=== PATIENT | male | born 1950 | race Caucasian/White ===

== ENCOUNTER 2017-08-29 15:42 | Observation (INO) | payer MEDICARE, SELFPAY ==
[2017-08-29] VITALS (13 sets, daily range): BP systolic 109–153; BP diastolic 59–83; PULSE 70–121; RESP 16–26; TEMP 36.2–36.7; O2SAT 87–96; BMI 33.7; BMI 33.5; BMI 33.6
--- NOTE | 2017-08-29 16:01 | EKG12_ITS ---
Test Reason : SOB Blood Pressure : / mmHG Vent. Rate : 117 BPM Atrial Rate : 117 BPM P-R Int : 140 ms QRS Dur : 090 ms QT Int : 334 ms P-R-T Axes : 064 110 047 degrees QTc Int : 465 ms Sinus tachycardia Otherwise normal ECG Confirmed by DULCE TRIPATHI, CATALINO ([id number]), online content editor DANDY MARIE ([id number]) on 08/31/2017 1:01:52 PM Referred By: ROB Confirmed By:CATALINO CARDONA MD
--- NOTE | 2017-08-29 16:01 | RAD_ITS ---
STUDY: X-RAY CHEST REASON FOR EXAM: Male, 67 years old. Chest pain TECHNIQUE: Single AP portable view of the chest. COMPARISON: None. FINDINGS: The lungs are clear and expanded. There is no demonstrated pleural abnormality. Normal size heart. Normal mediastinum and nick. Normal visualized pulmonary arteries. Normal visualized aortic arch and descending thoracic aorta. There are diffuse degenerative changes of the visualized thoracic spine. Normal visualized ribs, clavicles, and shoulders. There is no demonstrated abnormality of the visualized soft tissue structures of the upper abdomen. RAD/Chest 1 View (Portable) IMPRESSION: Normal x-ray examination of the chest. Electronically Signed: Jabari Ayoub MD at 16:23 EST , Service support ,
--- NOTE | 2017-08-29 16:05 | ED.DCSUM_ITS ---
- ER Visit Summary Date of Service: 08/29/17 Chief Complaint: Shortness of breath History of Present Illness: The patient is a 67 M presenting with shortness of breath. This is been ongoing for the past week. He states is worse when he lays flat. He has cough and chest pain only when he coughs. He denies fever. He has had increasing swelling in his upper and lower extremities. History of previous DVT. He is no longer takes anticoagulants. History of seizures and cerebral palsy. He is a former smoker. Physical Examination: Vitals are stable. Patient is afebrile. Alert no acute distress. 88% on room air HEENT exam is unremarkable. Neck is supple. Lungs are diffusely wheezing Heart is regular rate and rhythm. Abdomen is soft nontender nondistended. Extremities symmetric edema bilaterally Skin is warm and dry. No focal neurologic deficit. Remainder of exam is unremarkable. Emergency Department Course and Treatment: Patient was given albuterol and Atrovent aerosols. He was given Solu-Medrol IV. Chest x-ray shows no acute process. EKG is sinus tachycardia rate of 117. CBC, chemistries unremarkable. Troponin is negative. BNP is normal. D-dimer is negative. He was initially put on oxygen on arrival. After removing the oxygen his pulse ox went to 87% on room air at rest. Will discuss with the hospitalist for admission. Disposition: Admission Impression: COPD exacerbation, hypoxia This note was generated with [employer] dictation software. It may contain incorrect words, spelling, and punctuation that were not noted in review of the chart prior to signing ED Disposition - Plan for ED Patient: Chief Complaint: Shortness of Breath Referrals: Nakul Lopez III, MD [Primary Care Provider] -
[2017-08-29] MEDS: Albuterol 2.5 MG/3 ML VIAL.NEB. INHALATION ×5 (16:13→19:01)
[2017-08-29] MEDS: Ipratropium/Albuterol Sulfate 3 ML AMPUL.NEB INHALATION ×2 (16:13→23:25)
[2017-08-29 16:21] LABS: Absolute Lymphocyte Count 2.23 X10^3/ul (0.83-4.51); Absolute Neutrophil Count 6.6 X10^3/uL (2.0-7.7); Basophil# 0.06 X10^3/uL; Basophil% 0.6 % (0-1); Eosinophil# 0.77 X10^3/uL; Eosinophils% 7.2 % (0-5); Hemoglobin 13.3 g/dl (13.0-16.5); Lymphocyte # 2.23 X10^3/ul (4.0); Mean Corp Hgb Conc 32.4 g/gl (32-36); Mean Corpuscular Hgb 31.7 pg (27.0-32.0); Mean Corpuscular Volume 97.9 fL (80-94); Mean Platelet Vol. 9.9 fl (6.2-12.0); Monocyte# 0.91 X10^3/uL; Monocyte% 8.6 % (0-10); Neutrophil # 6.62 X10^3/uL (2.7-7.7); Neutrophil % 62.2 % (47-70); Platelet Count 261 K/mm3 (150-450); RBC Distribution Width CV 13.1 % (11.6-14.6); RBC Distribution Width SD 46.5 fl (35.1-43.9); Red Blood Count 4.19 M/mm3 (4.6-6.2); White Blood Count 10.6 K/mm3 (4.4-11.0)
[2017-08-29 16:51] LABS: Anion Gap 8 (5-15); BUN 15 mg/dL (7-18); Calcium,Total 8.8 mg/dL (8.5-10.1); Chloride 105 mmol/L (98-107); Creatinine, Serum 1.25 mg/dL (0.70-1.30); EST Glomerular Filtration Rate 61 mL/min (>60); Est Glom Filt Rate - Afr Amer 74 mL/min (>60); Estimated Creatinine Clearance 48.02 ml/min; Glucose 159 mg/dL (74-106); POSITIVE COUNT NO; POSITIVE DIFFERENTIAL NO; POSITIVE MORPHOLOGY NO; Potassium 4.1 mmol/L (3.5-5.1); Sodium Level 138 mmol/L (136-145)
[2017-08-29] MEDS: Aspirin 81 MG TAB.CHEW 324 MG PO (16:53)
[2017-08-29 17:14] LABS: BNP,B-Type NATRIURETIC PEPTIDE 2.6 pg/mL (0-100)
[2017-08-29] MEDS: MethylPREDNISolone 125 MG/2 ML Vial IV (17:52)
--- NOTE | 2017-08-29 18:10 | ED.RN ---
SOB WITH AMBULATION IN HALLWAY
[2017-08-29 18:28] LABS: D-Dimer Quantitative (DVT/PE) < 0.27 FEU/ug/m (0.27-0.49)
--- NOTE | 2017-08-29 20:40 | PCM.HP.STD ---
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 The patient is a 67 year old M past medical history as mentioned above presented to the emergency room because of shortness of breath. His illness started around 1 week ago with progressively increasing shortness of breath, initially was with moderate exertion and in the last couple of days, it has been with minimal exertion, associated with dry cough as well as wheezing, without aggravating or relieving factors and also associated with mild nasal congestion. He denied fever or chills. Denied chest pain, palpitation, dizziness or lightheadedness. He is an ex-smoker, smoked for about 35 years and he quit 9 years ago. He never been diagnosed officially with COPD but he mentioned that he takes inhalers from time to time. The patient is not a great informant. He had a history of seizure and he has been on Tegretol and Keppra. He had a history of cerebral palsy and he lives with his mother but he is independent. He had a history of DVT in the past and he is not on anticoagulation at this time. In the emergency room, patient was afebrile, slightly tachycardic, blood pressure was stable and pulse ox was 94% on 2 L. His routine blood work was unremarkable. D-dimer was normal. EKG revealed sinus tachycardia, otherwise normal. Chest x-ray showed no acute infiltrate, consultation or effusion. He received IV Solu-Medrol, DuoNeb ?1 and albuterol inhaler ?3 and he remained wheezy and short of breath although he felt some improvement. He is being admitted for acute exacerbation of suspected COPD with hypoxia. Past Medical History Past Medical History (Chronic Problems): Chronic Problems DVT of proximal lower limb (Chronic) History of seizures (Chronic) History of cerebral palsy (Chronic) Allergies No Known Allergies Allergy (Verified 08/29/17 15:47) Home Medications: Ambulatory Orders Medication Instructions Recorded Carbamazepine [Tegretol] 200 mg PO TID 08/29/17 Levetiracetam [Levetiracetam] 500 mg PO BID 08/29/17 Surgical History: - - R hand and leg surgeries, Craniotomy, Polyp removal, Lap hemicolectomy. Psychiatric History: No pertinent psych hx Lives: With Family Smoking Status: Former smoker Alcohol: None Drugs: None - *Family History Maternal History Items: No pertinent history Paternal History Items: No pertinent history Review of Systems Constitutional: Denies: Anorexia, Chills, Fever, Weakness Eyes: Denies: Blurred vision, Double vision, Drainage, Vision Change HEENT: Reports: Nasal Congestion. Denies: Difficulty Hearing, Ear Pain, Eye Pain, Sore Throat Cardiovascular: Denies: Chest Pain, Chest Pressure, Chest Tightness, Palpitations, Syncope Respiratory: Reports: Cough, Shortness of Breath, Shortness of breath upon exertion, Wheezing. Denies: Hemoptysis, Pleuritic Pain, Sputum production Gastrointestinal: Denies: Abdominal Pain, Constipation, Diarrhea, Nausea, Vomiting Genitourinary: Denies: Dysuria, Frequency, Hematuria Musculoskeletal: Denies: Arm Pain, Back Pain, Foot Pain Skin: Denies: Dryness, Rash Neurological: Denies: Balance problems, Double vision, Change in Speech, Slurred speech, Confusion, Focal weakness, Headaches, Incoordination Psychiatric: Denies: Anxiety, Depression Endocrine: Denies: Change in Body Habitus, Polydipsia VTE Information - Inpt Only VTE Present on Admission: No VTE Mechan Device Prophylaxis: None VTE Pharm Prophylaxis ordered?: Yes - Physical Exam General: Alert, Oriented x3, Cooperative, - - Mildly short of breath. HEENT: Atraumatic, PERRLA Oral: Moist Mucosa, No Gingival or Mucosal Lesions/ Ulcerations Neck: Supple, No JVD, Negative Carotid Bruits, Trachea Midline, Thyroid Normal Size and Texture Lungs: No rhonchi, No rales, Diminished, Short of Breath, Wheezes, - - Decreased breath sounds bilateral, occasional wheezes. Cardiovascular: Regular rate, Regular Rhythm, Normal S2, PMI Normal, Tachycardic Abdomen: Bowel Sounds Present, Soft, Non Tender, Non-Distended, No Hepato-splenomegaly Extremities: No clubbing, No cyanosis, No edema Skin: No rashes, No breakdown Lymphatic: No Cervical, Supraclavicular, or Inguinal Adenopathy Neurological: Cranial nerves II-XII grossly intact, Neuro grossly intact Psych/Mental Status: Normal Affect, Appropriate Vital Signs Temp Pulse Resp BP Pulse Ox 97.2 F L 108 H 19 H 116/73 94 08/29/17 20:34 02/13/18 20:34 08/29/17 20:34 08/29/17 20:34 08/29/17 20:34 Laboratory Tests 08/29/17 08/29/17 08/29/17 Range/Units 16:55 16:10 16:10 WBC (4.4-11.0) K/mm3 RBC (4.6-6.2) M/mm3 Hgb (13.0-16.5) g/dl Hct (40-54) % MCV (80-94) fL MCH (27.0-32.0) pg MCHC (32-36) g/gl RDW (11.6-14.6) % RDW Differential (35.1-43.9) fl Plt Count (150-450) K/mm3 MPV (6.2-12.0) fl Immature Gran % (Auto) (0.0-0.9) % Neut % (Auto) (47-70) % Lymph % (Auto) (19-41) % [place] % (Auto) (0-10) % Eos % (Auto) (0-5) % Baso % (Auto) (0-1) % Absolute Neuts (auto) (2.0-7.7) X10^3/uL Absolute Lymphs (auto) (0.83-4.51) X10^3/ul Total Counted D-Dimer Quant (PE/DVT) < 0.27 L Sodium 138 (136-145) mmol/L Potassium 4.1 (3.5-5.1) mmol/L Chloride 105 (98-107) mmol/L Carbon Dioxide 25.0 (21.0-32.0) mmol/L Anion Gap 8 (5-15) BUN 15 (7-18) mg/dL Creatinine 1.25 (0.70-1.30) mg/dL Estim Creat Clear Calc 48.02 ml/min Est GFR (MDRD) Af Amer 74 (>60) mL/min Est GFR (MDRD) Non-Af 61 (>60) mL/min BUN/Creatinine Ratio 12.0 (10-20) RATIO Glucose 159 H (74-106) mg/dL Calcium 8.8 (8.5-10.1) mg/dL Troponin I < 0.02 (<0.06) ng/mL B-Natriuretic Peptide 2.6 (0-100) pg/mL 08/29/17 08/29/17 Range/Units 16:10 16:10 WBC 10.6 (4.4-11.0) K/mm3 RBC 4.19 L (4.6-6.2) M/mm3 Hgb 13.3 (13.0-16.5) g/dl Hct 41.0 (40-54) % MCV 97.9 H (80-94) fL MCH 31.7 (27.0-32.0) pg MCHC 32.4 (32-36) g/gl RDW 13.1 (11.6-14.6) % RDW Differential 46.5 H (35.1-43.9) fl Plt Count 261 (150-450) K/mm3 MPV 9.9 (6.2-12.0) fl Immature Gran % (Auto) 0.400 (0.0-0.9) % Neut % (Auto) 62.2 (47-70) % Lymph % (Auto) 21.0 (19-41) % [place] % (Auto) 8.6 (0-10) % Eos % (Auto) 7.2 H (0-5) % Baso % (Auto) 0.6 (0-1) % Absolute Neuts (auto) 6.6 (2.0-7.7) X10^3/uL Absolute Lymphs (auto) 2.23 (0.83-4.51) X10^3/ul Total Counted Not Reportable D-Dimer Quant (PE/DVT) Cancelled Sodium (136-145) mmol/L Potassium (3.5-5.1) mmol/L Chloride (98-107) mmol/L Carbon Dioxide (21.0-32.0) mmol/L Anion Gap (5-15) BUN (7-18) mg/dL Creatinine (0.70-1.30) mg/dL Estim Creat Clear Calc ml/min Est GFR (MDRD) Af Amer (>60) mL/min Est GFR (MDRD) Non-Af (>60) mL/min BUN/Creatinine Ratio (10-20) RATIO Glucose (74-106) mg/dL Calcium (8.5-10.1) mg/dL Troponin I (<0.06) ng/mL B-Natriuretic Peptide (0-100) pg/mL Clinical Impression(s) from Imaging Studies Chest X-Ray 08/29/17 16:01 IMPRESSION: Normal x-ray examination of the chest. Electronically Signed: Jabari Ayoub MD at 16:23 EST , Service support , Assessment/Plan This is a 67 years old male patient presented to the emergency room because of shortness of breath, cough and wheezing and found to have hypoxia, found to have acute exacerbation of suspected COPD. #1 acute exacerbation of suspected COPD/hypoxia: This is based on his symptoms in addition to past history of smoking for 35 years. Patient mentioned that he has been using inhalers from time to another but never been diagnosed with COPD. Chest x-ray showed no acute findings. EKG revealed sinus tachycardia, otherwise normal. Routine blood work is unremarkable. Patient received IV steroids, albuterol and DuoNeb in the ER with improvement but he remained short of breath, wheezing and remained on oxygen at 2 L. Patient never been on oxygen at home before. Admit plan: Admit to [facility] floor for observation, telemetry, DuoNeb every 6 hours, albuterol as needed, Robitussin as needed, incentive spirometer, prednisone 40 mg p.o. daily, respiratory panel for viruses, PT OT evaluation and treatment. #2 seizure disorder: Continue Keppra and Tegretol. #3 cerebral palsy: Stable, supportive care. #4 history of DVT: It is long time ago, not on anticoagulation at this time. #5 DVT prophylaxis: Subcu Lovenox. This note was generated with [employer] dictation software. It may contain incorrect words, spelling, and punctuation that were not noted in checking the note before signing. Code Visit OBSV E&M: 49561 Initial observation care L3
--- NOTE | 2017-08-29 20:49 | HP.PCM_ITS ---
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 The patient is a 67 year old M past medical history as mentioned above presented to the emergency room because of shortness of breath. His illness started around 1 week ago with progressively increasing shortness of breath, initially was with moderate exertion and in the last couple of days, it has been with minimal exertion, associated with dry cough as well as wheezing, without aggravating or relieving factors and also associated with mild nasal congestion. He denied fever or chills. Denied chest pain, palpitation, dizziness or lightheadedness. He is an ex-smoker, smoked for about 35 years and he quit 9 years ago. He never been diagnosed officially with COPD but he mentioned that he takes inhalers from time to time. The patient is not a great informant. He had a history of seizure and he has been on Tegretol and Keppra. He had a history of cerebral palsy and he lives with his mother but he is independent. He had a history of DVT in the past and he is not on anticoagulation at this time. In the emergency room, patient was afebrile, slightly tachycardic, blood pressure was stable and pulse ox was 94% on 2 L. His routine blood work was unremarkable. D-dimer was normal. EKG revealed sinus tachycardia, otherwise normal. Chest x-ray showed no acute infiltrate, consultation or effusion. He received IV Solu-Medrol, DuoNeb ?1 and albuterol inhaler ?3 and he remained wheezy and short of breath although he felt some improvement. He is being admitted for acute exacerbation of suspected COPD with hypoxia. Past Medical History Past Medical History (Chronic Problems): Chronic Problems DVT of proximal lower limb (Chronic) History of seizures (Chronic) History of cerebral palsy (Chronic) Allergies No Known Allergies Allergy (Verified 08/29/17 15:47) Home Medications: Ambulatory Orders Medication Instructions Recorded Carbamazepine [Tegretol] 200 mg PO TID 08/29/17 Levetiracetam [Levetiracetam] 500 mg PO BID 08/29/17 Surgical History: - - R hand and leg surgeries, Craniotomy, Polyp removal, Lap hemicolectomy. Psychiatric History: No pertinent psych hx Lives: With Family Smoking Status: Former smoker Alcohol: None Drugs: None - *Family History Maternal History Items: No pertinent history Paternal History Items: No pertinent history Review of Systems Constitutional: Denies: Anorexia, Chills, Fever, Weakness Eyes: Denies: Blurred vision, Double vision, Drainage, Vision Change HEENT: Reports: Nasal Congestion. Denies: Difficulty Hearing, Ear Pain, Eye Pain, Sore Throat Cardiovascular: Denies: Chest Pain, Chest Pressure, Chest Tightness, Palpitations, Syncope Respiratory: Reports: Cough, Shortness of Breath, Shortness of breath upon exertion, Wheezing. Denies: Hemoptysis, Pleuritic Pain, Sputum production Gastrointestinal: Denies: Abdominal Pain, Constipation, Diarrhea, Nausea, Vomiting Genitourinary: Denies: Dysuria, Frequency, Hematuria Musculoskeletal: Denies: Arm Pain, Back Pain, Foot Pain Skin: Denies: Dryness, Rash Neurological: Denies: Balance problems, Double vision, Change in Speech, Slurred speech, Confusion, Focal weakness, Headaches, Incoordination Psychiatric: Denies: Anxiety, Depression Endocrine: Denies: Change in Body Habitus, Polydipsia VTE Information - Inpt Only VTE Present on Admission: No VTE Mechan Device Prophylaxis: None VTE Pharm Prophylaxis ordered?: Yes - Physical Exam General: Alert, Oriented x3, Cooperative, - - Mildly short of breath. HEENT: Atraumatic, PERRLA Oral: Moist Mucosa, No Gingival or Mucosal Lesions/ Ulcerations Neck: Supple, No JVD, Negative Carotid Bruits, Trachea Midline, Thyroid Normal Size and Texture Lungs: No rhonchi, No rales, Diminished, Short of Breath, Wheezes, - - Decreased breath sounds bilateral, occasional wheezes. Cardiovascular: Regular rate, Regular Rhythm, Normal S2, PMI Normal, Tachycardic Abdomen: Bowel Sounds Present, Soft, Non Tender, Non-Distended, No Hepato- splenomegaly Extremities: No clubbing, No cyanosis, No edema Skin: No rashes, No breakdown Lymphatic: No Cervical, Supraclavicular, or Inguinal Adenopathy Neurological: Cranial nerves II-XII grossly intact, Neuro grossly intact Psych/Mental Status: Normal Affect, Appropriate Vital Signs Temp Pulse Resp BP Pulse Ox 97.2 F L 108 H 19 H 116/73 94 08/29/17 20:34 02/13/18 20:34 08/29/17 20:34 08/29/17 20:34 08/29/17 20:34 Laboratory Tests 3 08/29/17 08/29/17 08/29/17 Range/Units 16:55 16:10 16:10 WBC (4.4-11.0) K/mm3 RBC (4.6-6.2) M/mm3 Hgb (13.0-16.5) g/dl Hct (40-54) % MCV (80-94) fL MCH (27.0-32.0) pg MCHC (32-36) g/gl RDW (11.6-14.6) % RDW Differential (35.1-43.9) fl Plt Count (150-450) K/mm3 MPV (6.2-12.0) fl Immature Gran % (Auto) (0.0-0.9) % Neut % (Auto) (47-70) % Lymph % (Auto) (19-41) % [place] % (Auto) (0-10) % Eos % (Auto) (0-5) % Baso % (Auto) (0-1) % Absolute Neuts (auto) (2.0-7.7) X10^3/uL Absolute Lymphs (auto) (0.83-4.51) X10^3/ul Total Counted D-Dimer Quant (PE/DVT) < 0.27 L Sodium 138 (136-145) mmol/L Potassium 4.1 (3.5-5.1) mmol/L Chloride 105 (98-107) mmol/L Carbon Dioxide 25.0 (21.0-32.0) mmol/L Anion Gap 8 (5-15) BUN 15 (7-18) mg/dL Creatinine 1.25 (0.70-1.30) mg/dL Estim Creat Clear Calc 48.02 ml/min Est GFR (MDRD) Af Amer 74 (>60) mL/min Est GFR (MDRD) Non-Af 61 (>60) mL/min BUN/Creatinine Ratio 12.0 (10-20) RATIO Glucose 159 H (74-106) mg/dL Calcium 8.8 (8.5-10.1) mg/dL Troponin I < 0.02 (<0.06) ng/mL B-Natriuretic Peptide 2.6 (0-100) pg/mL 3 08/29/17 08/29/17 Range/Units 16:10 16:10 WBC 10.6 (4.4-11.0) K/mm3 RBC 4.19 L (4.6-6.2) M/mm3 Hgb 13.3 (13.0-16.5) g/dl Hct 41.0 (40-54) % MCV 97.9 H (80-94) fL MCH 31.7 (27.0-32.0) pg MCHC 32.4 (32-36) g/gl RDW 13.1 (11.6-14.6) % RDW Differential 46.5 H (35.1-43.9) fl Plt Count 261 (150-450) K/mm3 MPV 9.9 (6.2-12.0) fl Immature Gran % (Auto) 0.400 (0.0-0.9) % Neut % (Auto) 62.2 (47-70) % Lymph % (Auto) 21.0 (19-41) % [place] % (Auto) 8.6 (0-10) % Eos % (Auto) 7.2 H (0-5) % Baso % (Auto) 0.6 (0-1) % Absolute Neuts (auto) 6.6 (2.0-7.7) X10^3/uL Absolute Lymphs (auto) 2.23 (0.83-4.51) X10^3/ul Total Counted Not Reportable D-Dimer Quant (PE/DVT) Cancelled Sodium (136-145) mmol/L Potassium (3.5-5.1) mmol/L Chloride (98-107) mmol/L Carbon Dioxide (21.0-32.0) mmol/L Anion Gap (5-15) BUN (7-18) mg/dL Creatinine (0.70-1.30) mg/dL Estim Creat Clear Calc ml/min Est GFR (MDRD) Af Amer (>60) mL/min Est GFR (MDRD) Non-Af (>60) mL/min BUN/Creatinine Ratio (10-20) RATIO Glucose (74-106) mg/dL Calcium (8.5-10.1) mg/dL Troponin I (<0.06) ng/mL B-Natriuretic Peptide (0-100) pg/mL Clinical Impression(s) from Imaging Studies Chest X-Ray 08/29/17 16:01 IMPRESSION: Normal x-ray examination of the chest. Electronically Signed: Jabari Ayoub MD at 16:23 EST , Service support , Assessment/Plan This is a 67 years old male patient presented to the emergency room because of shortness of breath, cough and wheezing and found to have hypoxia, found to have acute exacerbation of suspected COPD. #1 acute exacerbation of suspected COPD/hypoxia: This is based on his symptoms in addition to past history of smoking for 35 years. Patient mentioned that he has been using inhalers from time to another but never been diagnosed with COPD. Chest x-ray showed no acute findings. EKG revealed sinus tachycardia, otherwise normal. Routine blood work is unremarkable. Patient received IV steroids, albuterol and DuoNeb in the ER with improvement but he remained short of breath, wheezing and remained on oxygen at 2 L. Patient never been on oxygen at home before. Admit plan: Admit to [facility] floor for observation, telemetry, DuoNeb every 6 hours, albuterol as needed, Robitussin as needed, incentive spirometer, prednisone 40 mg p.o. daily, respiratory panel for viruses , PT OT evaluation and treatment. #2 seizure disorder: Continue Keppra and Tegretol. #3 cerebral palsy: Stable, supportive care. #4 history of DVT: It is long time ago, not on anticoagulation at this time. #5 DVT prophylaxis: Subcu Lovenox. This note was generated with [employer] dictation software. It may contain incorrect words, spelling, and punctuation that were not noted in checking the note before signing. Code Visit OBSV E&M: 39682 Initial observation care L3
[2017-08-29] MEDS: levETIRAcetam 500 MG Tablet PO (22:25)
[2017-08-29] MEDS: carBAMazepine 200 MG Tablet PO (22:26)
[2017-08-30] VITALS (15 sets, daily range): BP systolic 125–152; BP diastolic 49–82; PULSE 79–104; RESP 18–20; TEMP 36.3–36.9; O2SAT 93–97
[2017-08-30] MEDS: carBAMazepine 200 MG Tablet PO ×3 (06:17→21:58)
[2017-08-30] MEDS: Ipratropium/Albuterol Sulfate 3 ML AMPUL.NEB INHALATION ×3 (07:14→18:27)
--- NOTE | 2017-08-30 09:25 | PCM.PROGNOTE ---
Patient Problems: Active and Suspected Problems Suspected chronic obstructive pulmonary disease based on initial evaluation (Acute) Subjective: Patient is a 67-year-old male with a past medical history of cerebral palsy, seizures and DVTs who presented to the emergency room at [facility] on 08/29/2017 complaining of shortness of breath. Shortness of breath was associated with dry cough and mild nasal congestion. He denied fever or chills. He has never had pulmonary function tests but uses inhalers from time to time at home. Vital signs at presentation to the emergency room were temperature 98, pulse rate 115, blood pressure 153/83, respiratory rate 16 and he was 92% saturated on room air. White blood cell count was normal at 10.6 with an unremarkable differential other than mildly increased eosinophils at 7.2. Hemoglobin and platelets were normal. D-dimer was normal at less than 0.27. Electrolytes, BUN and creatinine were all within normal limits. Respiratory panel was negative. Chest x-ray showed no pleural effusions, infiltrates or pulmonary vascular congestion. He was admitted to the hospital with a diagnosis of acute exacerbation of COPD and started on intravenous steroids, aerosols and incentive spirometry. Afebrile since admission. Vital signs are stable. He is currently 95-97% saturated on a 2 L nasal cannula. He tells me that his breathing is better and attributes this to the oxygen. He is not coughing does not appear to be in any distress sitting in the recliner No chills and no sputum production No diarrhea and no Myalgias or arthralgias - Physical Exam General: Alert, Oriented x3, Cooperative, No apparent distress HEENT: Atraumatic Oral: Moist Mucosa, No Gingival or Mucosal Lesions/ Ulcerations Neck: Supple Lungs: No rales, Diminished, Wheezes, - - No accessory muscle use, no conversational dyspnea Cardiovascular: Regular rate, Regular Rhythm, Normal S1, Normal S2, No murmurs, No Gallop Abdomen: Bowel Sounds Present, Soft, Non Tender, Non-Distended Extremities: No clubbing, No cyanosis, No edema, No Calf Tenderness Skin: No rashes Psych/Mental Status: Normal Affect, Appropriate Vital Signs Temp Pulse Resp BP Pulse Ox 98.4 F 97 20 H 130/49 H 97 08/30/17 07:45 08/30/17 07:59 08/30/17 07:45 08/30/17 07:45 08/30/17 07:45 Oxygen Flow Rate 2 Oxygen Delivery Method Nasal Cannula Weight: 195 lb 12.328 oz Body Mass Index (BMI) 33.5 Intake and Output for Last 24 Hours 08/28/17 08/29/17 08/30/17 23:59 23:59 23:59 Intake Total 120 / 120 340 / 340 Balance 120 / 120 340 / 340 Microbiology Past 72 Hours 08/29/17 23:30 Respiratory Panel (PCR) - Final Mucosa - Nasopharyngeal Assessment/Plan Active and Suspected Problems Suspected chronic obstructive pulmonary disease based on initial evaluation (Acute) Impressions 1. acute exacerbation of presumptive COPD(has never had PFT's - suspect he has both restrictive ( due to the CP and muscle weakness) and obstructive disease 2. Cerebral palsy 3. former smoker 4. Seizure disorder 5. History of DVT 6. 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 Flowers to establish care PFT's and a sleep study as an OP ambulatory pulse ox prior to DC Code Visit OBSV E&M: 56895 Subsequent observation care L2
--- NOTE | 2017-08-30 09:32 | PN_ITS ---
Patient Problems: Active and Suspected Problems Suspected chronic obstructive pulmonary disease based on initial evaluation ( Acute) Subjective: Patient is a 67-year-old male with a past medical history of cerebral palsy, seizures and DVTs who presented to the emergency room at [facility] on 08/29/2017 complaining of shortness of breath. Shortness of breath was associated with dry cough and mild nasal congestion. He denied fever or chills. He has never had pulmonary function tests but uses inhalers from time to time at home. Vital signs at presentation to the emergency room were temperature 98, pulse rate 115, blood pressure 153/83, respiratory rate 16 and he was 92% saturated on room air. White blood cell count was normal at 10.6 with an unremarkable differential other than mildly increased eosinophils at 7.2. Hemoglobin and platelets were normal. D-dimer was normal at less than 0.27. Electrolytes, BUN and creatinine were all within normal limits. Respiratory panel was negative. Chest x-ray showed no pleural effusions, infiltrates or pulmonary vascular congestion. He was admitted to the hospital with a diagnosis of acute exacerbation of COPD and started on intravenous steroids, aerosols and incentive spirometry. Afebrile since admission. Vital signs are stable. He is currently 95-97% saturated on a 2 L nasal cannula. He tells me that his breathing is better and attributes this to the oxygen. He is not coughing does not appear to be in any distress sitting in the recliner No chills and no sputum production No diarrhea and no Myalgias or arthralgias - Physical Exam General: Alert, Oriented x3, Cooperative, No apparent distress HEENT: Atraumatic Oral: Moist Mucosa, No Gingival or Mucosal Lesions/ Ulcerations Neck: Supple Lungs: No rales, Diminished, Wheezes, - - No accessory muscle use, no conversational dyspnea Cardiovascular: Regular rate, Regular Rhythm, Normal S1, Normal S2, No murmurs, No Gallop Abdomen: Bowel Sounds Present, Soft, Non Tender, Non-Distended Extremities: No clubbing, No cyanosis, No edema, No Calf Tenderness Skin: No rashes Psych/Mental Status: Normal Affect, Appropriate Vital Signs Temp Pulse Resp BP Pulse Ox 98.4 F 97 20 H 130/49 H 97 08/30/17 07:45 08/30/17 07:59 08/30/17 07:45 08/30/17 07:45 08/30/17 07:45 Oxygen Flow Rate 2 Oxygen Delivery Method Nasal Cannula Weight: 195 lb 12.328 oz Body Mass Index (BMI) 33.5 Intake and Output for Last 24 Hours 08/28/17 08/29/17 08/30/17 23:59 23:59 23:59 Intake Total 120 / 120 340 / 340 Balance 120 / 120 340 / 340 Microbiology Past 72 Hours 08/29/17 23:30 Respiratory Panel (PCR) - Final Mucosa - Nasopharyngeal Assessment/Plan Active and Suspected Problems Suspected chronic obstructive pulmonary disease based on initial evaluation ( Acute) Impressions 1. acute exacerbation of presumptive COPD(has never had PFT's - suspect he has both restrictive ( due to the CP and muscle weakness) and obstructive disease 2. Cerebral palsy 3. former smoker 4. Seizure disorder 5. History of DVT 6. 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 Flowers to establish care PFT's and a sleep study as an OP ambulatory pulse ox prior to DC Code Visit OBSV E&M: 83129 Subsequent observation care L2
[2017-08-30] MEDS: Enoxaparin 40 MG/0.4 ML Syringe SC (10:40)
[2017-08-30] MEDS: levETIRAcetam 500 MG Tablet PO ×2 (10:40→21:58)
--- NOTE | 2017-08-30 13:11 | PCM.CONS.GEN ---
Problem List (1) DVT of proximal lower limb Status: Chronic Qualifiers: Chronicity: unspecified Laterality: left Qualified Code(s): I82.4Y2 - Acute embolism and thrombosis of unspecified deep veins of left proximal lower extremity Comment: 2012 (2) History of seizures Status: Chronic (3) History of cerebral palsy Status: Chronic (4) Suspected chronic obstructive pulmonary disease based on initial evaluation Status: Acute Reason for Consult Date of Consultation: 08/30/17 Reason for Consultation: suspected combined restrictive and obstructive lung disease History of Present Illness: The patient is a 67 year old M with a past medical history of previous DVT (no anticoagulation currently), seizures, former smoker, and cerebral palsy who presented to the ER with complaints of progressive shortness of breath for the past week that worsens with lying flat. Patient also complained of a nonproductive cough, chest pain associated with coughing, wheezing, and increased swelling in his upper and lower extremities. Initial vital signs blood pressure 153/83, pulse 115, RR 16, afebrile at 98?F, and 92% on room air. Patient was placed on oxygen and then rechecked on room air, he was 87%. He also had some tachypnea in the 20s to 30s. A d-dimer was obtained and was negative. Chest x-ray was normal. Respiratory panel was normal. The patient was given albuterol and Atrovent aerosols, baby aspirin, and IV Solu-Medrol. He was admitted to the medical surgical floor and placed on p.o. prednisone, Robitussin, DVT prophylaxis with Lovenox, scheduled DuoNeb aerosols, and as needed albuterol for presumed COPD exacerbation. His home medications for his seizure disorder were continued. 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 Patient reports recurrent bronchitis and follows with Dr. Nakul Lopez who has treated the patient with prednisone bursts and antibiotics in the past, last was in April 2017. Patient does have a significant smoking history with a [id number] history, he quit approximately 9 years ago. He has never been told he has COPD. There has been no previous home oxygen requirements. He does use a Ventolin MDI at home that significantly helps his shortness of breath and wheezing, however he ran out of this a couple of months ago. The patient lives with his mother but is essentially independent. He uses a cane when going up and down stairs, his bedroom is on the second floor of the home. He does have a history of a DVT in his left lower extremity and was on anticoagulation in 2012. No history of PE. Denies hemoptysis. No personal history of cancer, but his father and sister from lung cancer. No history of TB or asbestos exposure. The patient is currently continued appropriate saturations on room air. He briefly required 2 L of oxygen. He denies any current shortness of breath. He does have a nonproductive cough and intermittent wheezing. He complains of chest tightness when short of breath or coughing. He denies any fevers or chills. Patient denies any change in weight. He does note that he feels like he is going to pass out sometimes secondary to dyspnea on exertion. Past Medical History Past Medical History (Chronic Problems): Chronic Problems DVT of proximal lower limb (Chronic) 2012 History of seizures (Chronic) History of cerebral palsy (Chronic) Allergies No Known Allergies Allergy (Verified 08/29/17 21:24) Home Medications: Ambulatory Orders Medication Instructions Recorded Carbamazepine [Tegretol] 200 mg PO TID 08/29/17 Levetiracetam [Levetiracetam] 500 mg PO BID 08/29/17 Surgical History: - - R hand and leg surgeries, Craniotomy, Polyp removal, Lap hemicolectomy. Psychiatric History: No pertinent psych hx Lives: With Family Smoking Status: Former smoker Alcohol: None Drugs: None - *Family History Maternal History Items: No pertinent history Paternal History Items: No pertinent history Patient Problems: Active and Suspected Problems Suspected chronic obstructive pulmonary disease based on initial evaluation (Acute) Subjective: The patient was seen and examined. He denies any current shortness of breath, chest tightness, or wheezing. He is saturating well on room air. Objective: Clinical Impression(s) from Imaging Studies Chest X-Ray 08/29/17 16:01 IMPRESSION: Normal x-ray examination of the chest. Electronically Signed: Jabari Ayoub MD at 16:23 EST , Service support , - Physical Exam General: Alert, Oriented x3, Cooperative, No apparent distress, Well developed, Well nourished, - - No conversational dyspnea HEENT: Atraumatic, Normocephalic Oral: Moist Mucosa, No Gingival or Mucosal Lesions/ Ulcerations Neck: Supple, No Nodes, Trachea Midline Lungs: - - Diminished with global expiratory wheeze, no rhonchi or rales and no accessory muscle use, no dullness to percussion or tachypnea Cardiovascular: Regular rate, Regular Rhythm, Normal S1, Normal S2, No murmurs Abdomen: Bowel Sounds Present, Soft, Non Tender, Non-Distended, Obese Extremities: No clubbing, No cyanosis, Capillary Refill Less than 3 Seconds, Edema - trace Skin: No rashes, No breakdown Musculoskeletal: No Tenderness to Palpation of Joints or Extremities Lymphatic: No Cervical, Supraclavicular, or Inguinal Adenopathy Neurological: Cranial nerves II-XII grossly intact, Neuro grossly intact, Motor Exam 5/5 strength throughout Psych/Mental Status: Alert and oriented to time, place, person, mood and affect Vital Signs Temp Pulse Resp BP Pulse Ox 98.4 F 97 20 H 130/49 H 97 08/30/17 07:45 08/30/17 07:59 08/30/17 07:45 08/30/17 07:45 08/30/17 07:45 Oxygen Flow Rate 2 Oxygen Delivery Method Nasal Cannula Weight: 195 lb 12.328 oz Body Mass Index (BMI) 33.5 Intake and Output for Last 24 Hours 08/28/17 08/29/17 08/30/17 23:59 23:59 23:59 Intake Total 120 / 120 340 / 340 Balance 120 / 120 340 / 340 Microbiology Past 72 Hours 08/29/17 23:30 Respiratory Panel (PCR) - Final Mucosa - Nasopharyngeal Assessment/Plan Active and Suspected Problems Suspected chronic obstructive pulmonary disease based on initial evaluation (Acute) RECOMMENDATIONS 1. Wean oxygen supplementation to keep saturations 88-92%. 2. Encourage incentive spirometer 3. Increase activity as tolerated, PT/OT consult 4. Continue aerosols 5. Continue IV steroids 6. Ambulatory pulse ox prior to discharge 7. Patient can follow-up in the pulmonary clinic in 2 weeks from discharge with [employer] IMPRESSIONS 1. Presumed COPD exacerbation with hypoxia Improved. Patient initially desaturated to 87% on room air and recovered with 2 L of oxygen supplementation. Patient currently on room air and maintaining saturations. Still having dyspnea on exertion with significant wheezing. Chest X ray was negative for acute process. D-dimer was negative. No leukocytosis or fevers. No official pulmonary function tests to confirm diagnosis of COPD. Would recommend outpatient pulmonary function tests to clarify and quantify lung disease, as patient may also have element of asthma. Endorses significant improvement with albuterol. Does have significant smoking history. Continue IV steroids, aerosols, encourage incentive spirometer. Increase activity as tolerated. Wean oxygen supplementation to keep saturations 88-92%. Patient should have an ambulatory pulse ox prior to discharge from the hospital. The patient has expressed interest in following up in the pulmonary clinic upon discharge, please schedule appointment with [employer] in 2 weeks from discharge at which time PFTs and PSG can be ordered. He will require a new prescription for albuterol rescue inhaler upon discharge. 2. Seizure disorder/cerebral palsy/history of DVT, suspected sleep apnea Complicates care, management, recovery, and prognosis. Patient does endorse some snoring, witnessed apnea, and some daytime sleepiness. Again, polysomnogram can be ordered as an outpatient. Thank you for the opportunity to participate in this patient's care, please do not hesitate contact us with any further questions or concerns. This note was generated with [employer] dictation software. It may contain incorrect words, spelling, and punctuation that were not noted in checking the note before signing.
--- NOTE | 2017-08-30 13:24 | CON.PCM_ITS ---
Problem List (1) DVT of proximal lower limb Status: Chronic Qualifiers: Chronicity: unspecified Laterality: left Qualified Code(s): I82.4Y2 - Acute embolism and thrombosis of unspecified deep veins of left proximal lower extremity Comment: 2012 (2) History of seizures Status: Chronic (3) History of cerebral palsy Status: Chronic (4) Suspected chronic obstructive pulmonary disease based on initial evaluation Status: Acute Reason for Consult Date of Consultation: 08/30/17 Reason for Consultation: suspected combined restrictive and obstructive lung disease History of Present Illness: The patient is a 67 year old M with a past medical history of previous DVT (no anticoagulation currently), seizures, former smoker, and cerebral palsy who presented to the ER with complaints of progressive shortness of breath for the past week that worsens with lying flat. Patient also complained of a nonproductive cough, chest pain associated with coughing, wheezing, and increased swelling in his upper and lower extremities. Initial vital signs blood pressure 153/83, pulse 115, RR 16, afebrile at 98?F, and 92% on room air. Patient was placed on oxygen and then rechecked on room air, he was 87%. He also had some tachypnea in the 20s to 30s. A d-dimer was obtained and was negative. Chest x-ray was normal. Respiratory panel was normal. The patient was given albuterol and Atrovent aerosols, baby aspirin, and IV Solu-Medrol. He was admitted to the medical surgical floor and placed on p.o. prednisone, Robitussin, DVT prophylaxis with Lovenox, scheduled DuoNeb aerosols, and as needed albuterol for presumed COPD exacerbation. His home medications for his seizure disorder were continued. 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 Patient reports recurrent bronchitis and follows with Dr. Nakul Lopez who has treated the patient with prednisone bursts and antibiotics in the past, last was in April 2017. Patient does have a significant smoking history with a [id number] history, he quit approximately 9 years ago. He has never been told he has COPD. There has been no previous home oxygen requirements. He does use a Ventolin MDI at home that significantly helps his shortness of breath and wheezing, however he ran out of this a couple of months ago. The patient lives with his mother but is essentially independent. He uses a cane when going up and down stairs, his bedroom is on the second floor of the home. He does have a history of a DVT in his left lower extremity and was on anticoagulation in 2012. No history of PE. Denies hemoptysis. No personal history of cancer, but his father and sister from lung cancer. No history of TB or asbestos exposure. The patient is currently continued appropriate saturations on room air. He briefly required 2 L of oxygen. He denies any current shortness of breath. He does have a nonproductive cough and intermittent wheezing. He complains of chest tightness when short of breath or coughing. He denies any fevers or chills. Patient denies any change in weight. He does note that he feels like he is going to pass out sometimes secondary to dyspnea on exertion. Past Medical History Past Medical History (Chronic Problems): Chronic Problems DVT of proximal lower limb (Chronic) 2012 History of seizures (Chronic) History of cerebral palsy (Chronic) Allergies No Known Allergies Allergy (Verified 08/29/17 21:24) Home Medications: Ambulatory Orders Medication Instructions Recorded Carbamazepine [Tegretol] 200 mg PO TID 08/29/17 Levetiracetam [Levetiracetam] 500 mg PO BID 08/29/17 Surgical History: - - R hand and leg surgeries, Craniotomy, Polyp removal, Lap hemicolectomy. Psychiatric History: No pertinent psych hx Lives: With Family Smoking Status: Former smoker Alcohol: None Drugs: None - *Family History Maternal History Items: No pertinent history Paternal History Items: No pertinent history Patient Problems: Active and Suspected Problems Suspected chronic obstructive pulmonary disease based on initial evaluation ( Acute) Subjective: The patient was seen and examined. He denies any current shortness of breath, chest tightness, or wheezing. He is saturating well on room air. Objective: Clinical Impression(s) from Imaging Studies Chest X-Ray 08/29/17 16:01 IMPRESSION: Normal x-ray examination of the chest. Electronically Signed: Jabari Ayoub MD at 16:23 EST , Service support , - Physical Exam General: Alert, Oriented x3, Cooperative, No apparent distress, Well developed, Well nourished, - - No conversational dyspnea HEENT: Atraumatic, Normocephalic Oral: Moist Mucosa, No Gingival or Mucosal Lesions/ Ulcerations Neck: Supple, No Nodes, Trachea Midline Lungs: - - Diminished with global expiratory wheeze, no rhonchi or rales and no accessory muscle use, no dullness to percussion or tachypnea Cardiovascular: Regular rate, Regular Rhythm, Normal S1, Normal S2, No murmurs Abdomen: Bowel Sounds Present, Soft, Non Tender, Non-Distended, Obese Extremities: No clubbing, No cyanosis, Capillary Refill Less than 3 Seconds, Edema - trace Skin: No rashes, No breakdown Musculoskeletal: No Tenderness to Palpation of Joints or Extremities Lymphatic: No Cervical, Supraclavicular, or Inguinal Adenopathy Neurological: Cranial nerves II-XII grossly intact, Neuro grossly intact, Motor Exam 5/5 strength throughout Psych/Mental Status: Alert and oriented to time, place, person, mood and affect Vital Signs Temp Pulse Resp BP Pulse Ox 98.4 F 97 20 H 130/49 H 97 08/30/17 07:45 08/30/17 07:59 08/30/17 07:45 08/30/17 07:45 08/30/17 07:45 Oxygen Flow Rate 2 Oxygen Delivery Method Nasal Cannula Weight: 195 lb 12.328 oz Body Mass Index (BMI) 33.5 Intake and Output for Last 24 Hours 08/28/17 08/29/17 08/30/17 23:59 23:59 23:59 Intake Total 120 / 120 340 / 340 Balance 120 / 120 340 / 340 Microbiology Past 72 Hours 08/29/17 23:30 Respiratory Panel (PCR) - Final Mucosa - Nasopharyngeal Assessment/Plan Active and Suspected Problems Suspected chronic obstructive pulmonary disease based on initial evaluation ( Acute) RECOMMENDATIONS 1. Wean oxygen supplementation to keep saturations 88-92%. 2. Encourage incentive spirometer 3. Increase activity as tolerated, PT/OT consult 4. Continue aerosols 5. Continue IV steroids 6. Ambulatory pulse ox prior to discharge 7. Patient can follow-up in the pulmonary clinic in 2 weeks from discharge with DIRECTOR OF [employer]PORATE [employer] E[employer] IMPRESSIONS 1. Presumed COPD exacerbation with hypoxia Improved. Patient initially desaturated to 87% on room air and recovered with 2 L of oxygen supplementation. Patient currently on room air and maintaining saturations. Still having dyspnea on exertion with significant wheezing. Chest X ray was negative for acute process. D-dimer was negative. No leukocytosis or fevers. No official pulmonary function tests to confirm diagnosis of COPD. Would recommend outpatient pulmonary function tests to clarify and quantify lung disease, as patient may also have element of asthma. Endorses significant improvement with albuterol. Does have significant smoking history. Continue IV steroids, aerosols, encourage incentive spirometer. Increase activity as tolerated. Wean oxygen supplementation to keep saturations 88-92%. Patient should have an ambulatory pulse ox prior to discharge from the hospital. The patient has expressed interest in following up in the pulmonary clinic upon discharge, please schedule appointment with DIRECTOR OF [employer]PORATE REAL ESTATE in 2 weeks from discharge at which time PFTs and PSG can be ordered. He will require a new prescription for albuterol rescue inhaler upon discharge. 2. Seizure disorder/cerebral palsy/history of DVT, suspected sleep apnea Complicates care, management, recovery, and prognosis. Patient does endorse some snoring, witnessed apnea, and some daytime sleepiness. Again, polysomnogram can be ordered as an outpatient. Thank you for the opportunity to participate in this patient's care, please do not hesitate contact us with any further questions or concerns. This note was generated with [employer] dictation software. It may contain incorrect words, spelling, and punctuation that were not noted in checking the note before signing.
[2017-08-31] VITALS (15 sets, daily range): BP systolic 91–127; BP diastolic 38–81; PULSE 79–105; RESP 16–20; TEMP 36.3–36.8; O2SAT 92–94
[2017-08-31] MEDS: Ipratropium/Albuterol Sulfate 3 ML AMPUL.NEB INHALATION ×4 (00:50→20:30)
[2017-08-31] MEDS: carBAMazepine 200 MG Tablet PO ×3 (06:05→21:19)
--- NOTE | 2017-08-31 08:19 | PCM.PROGNOTE ---
Patient Problems: Active and Suspected Problems Suspected chronic obstructive pulmonary disease based on initial evaluation (Acute) Subjective: Patient was seen and examined. He is lying in bed in no acute distress. Remains afebrile and hemodynamically stable. Maintaining appropriate saturations on room air. Reports subjective improvement in overall breathing. Still having some wheezing intermittently, however improved. Objective: Clinical Impression(s) from Imaging Studies Chest X-Ray 08/29/17 16:01 IMPRESSION: Normal x-ray examination of the chest. Electronically Signed: Jabari Ayoub MD at 16:23 EST , Service support , Respiratory panel was unremarkable. - Physical Exam General: Alert, Oriented x3, Cooperative, No apparent distress HEENT: Atraumatic, Normocephalic Oral: Moist Mucosa, No Gingival or Mucosal Lesions/ Ulcerations Neck: Supple, No Nodes, Trachea Midline Lungs: No rhonchi, No rales, Diminished, - - Expiratory wheeze, improved Cardiovascular: Regular rate, Regular Rhythm, Normal S1, Normal S2, No murmurs Abdomen: Bowel Sounds Present, Soft, Non Tender, Non-Distended Extremities: No clubbing, No cyanosis, No edema Skin: No rashes, No breakdown Musculoskeletal: No Tenderness to Palpation of Joints or Extremities Lymphatic: No Cervical, Supraclavicular, or Inguinal Adenopathy Neurological: Neuro grossly intact Psych/Mental Status: Alert and oriented to time, place, person, mood and affect Vital Signs Temp Pulse Resp BP Pulse Ox 98.3 F 79 16 103/58 L 93 08/31/17 04:15 08/31/17 06:51 08/31/17 06:51 08/31/17 06:07 08/31/17 06:51 Oxygen Flow Rate 2 Oxygen Delivery Method Room Air Weight: 195 lb 12.328 oz Body Mass Index (BMI) 33.5 Intake and Output for Last 24 Hours 08/29/17 08/30/17 08/31/17 23:59 23:59 23:59 Intake Total 120 / 120 1140 / 1140 250 / 250 Balance 120 / 120 1140 / 1140 250 / 250 Microbiology Past 72 Hours 08/29/17 23:30 Respiratory Panel (PCR) - Final Mucosa - Nasopharyngeal Assessment/Plan Active and Suspected Problems Suspected chronic obstructive pulmonary disease based on initial evaluation (Acute) RECOMMENDATIONS 1. Wean oxygen supplementation to keep saturations 88-92%. 2. Encourage incentive spirometer 3. Increase activity as tolerated, PT/OT consult 4. Continue aerosols 5. Continue oral steroids, 12 day taper at discharge 6. Ambulatory pulse ox prior to discharge 7. Patient can follow-up in the pulmonary clinic in 2 weeks from discharge with [facility] TEACHER 8. Patient will require new prescription for bronchodilator on discharge to use PRN every 4-6 hours IMPRESSIONS 1. Presumed COPD exacerbation with hypoxia Improved. Patient initially desaturated to 87% on room air and recovered with 2 L of oxygen supplementation. Patient currently on room air and maintaining appropriate saturations. Still having dyspnea on exertion with wheezing, but improved. Does not appear to be infectious but workup pending. No official pulmonary function tests to confirm diagnosis of COPD. Would recommend outpatient pulmonary function tests to clarify and quantify lung disease, as patient may also have element of asthma. Endorses significant improvement with albuterol. Does have significant smoking history. Continue steroids with plan for 12 day taper at discharge. Continue aerosols, encourage incentive spirometer. Increase activity as tolerated. Wean oxygen supplementation to keep saturations 88-92%. Patient should have an ambulatory pulse ox prior to discharge from the hospital. The patient has expressed interest in following up in the pulmonary clinic upon discharge, please schedule appointment with M[facility] TEACHER in 2 weeks from discharge at which time testing can be ordered. He will require a new prescription for albuterol rescue inhaler upon discharge. 2. Seizure disorder/cerebral palsy/history of DVT, suspected sleep apnea Complicates care, management, recovery, and prognosis. Patient does endorse some snoring, witnessed apnea, and some daytime sleepiness. Again, polysomnogram can be ordered as an outpatient. Thank you for the opportunity to participate in this patient's care, please do not hesitate contact us with any further questions or concerns. This note was generated with [employer] dictation software. It may contain incorrect words, spelling, and punctuation that were not noted in checking the note before signing.
--- NOTE | 2017-08-31 08:25 | PN_ITS ---
Patient Problems: Active and Suspected Problems Suspected chronic obstructive pulmonary disease based on initial evaluation ( Acute) Subjective: Patient was seen and examined. He is lying in bed in no acute distress. Remains afebrile and hemodynamically stable. Maintaining appropriate saturations on room air. Reports subjective improvement in overall breathing. Still having some wheezing intermittently, however improved. Objective: Clinical Impression(s) from Imaging Studies Chest X-Ray 08/29/17 16:01 IMPRESSION: Normal x-ray examination of the chest. Electronically Signed: Jabari Ayoub MD at 16:23 EST , Service support , Respiratory panel was unremarkable. - Physical Exam General: Alert, Oriented x3, Cooperative, No apparent distress HEENT: Atraumatic, Normocephalic Oral: Moist Mucosa, No Gingival or Mucosal Lesions/ Ulcerations Neck: Supple, No Nodes, Trachea Midline Lungs: No rhonchi, No rales, Diminished, - - Expiratory wheeze, improved Cardiovascular: Regular rate, Regular Rhythm, Normal S1, Normal S2, No murmurs Abdomen: Bowel Sounds Present, Soft, Non Tender, Non-Distended Extremities: No clubbing, No cyanosis, No edema Skin: No rashes, No breakdown Musculoskeletal: No Tenderness to Palpation of Joints or Extremities Lymphatic: No Cervical, Supraclavicular, or Inguinal Adenopathy Neurological: Neuro grossly intact Psych/Mental Status: Alert and oriented to time, place, person, mood and affect Vital Signs Temp Pulse Resp BP Pulse Ox 98.3 F 79 16 103/58 L 93 08/31/17 04:15 08/31/17 06:51 08/31/17 06:51 08/31/17 06:07 08/31/17 06:51 Oxygen Flow Rate 2 Oxygen Delivery Method Room Air Weight: 195 lb 12.328 oz Body Mass Index (BMI) 33.5 Intake and Output for Last 24 Hours 08/29/17 08/30/17 08/31/17 23:59 23:59 23:59 Intake Total 120 / 120 1140 / 1140 250 / 250 Balance 120 / 120 1140 / 1140 250 / 250 Microbiology Past 72 Hours 08/29/17 23:30 Respiratory Panel (PCR) - Final Mucosa - Nasopharyngeal Assessment/Plan Active and Suspected Problems Suspected chronic obstructive pulmonary disease based on initial evaluation ( Acute) RECOMMENDATIONS 1. Wean oxygen supplementation to keep saturations 88-92%. 2. Encourage incentive spirometer 3. Increase activity as tolerated, PT/OT consult 4. Continue aerosols 5. Continue oral steroids, 12 day taper at discharge 6. Ambulatory pulse ox prior to discharge 7. Patient can follow-up in the pulmonary clinic in 2 weeks from discharge with REPAIR WELDER 8. Patient will require new prescription for bronchodilator on discharge to use PRN every 4-6 hours IMPRESSIONS 1. Presumed COPD exacerbation with hypoxia Improved. Patient initially desaturated to 87% on room air and recovered with 2 L of oxygen supplementation. Patient currently on room air and maintaining appropriate saturations. Still having dyspnea on exertion with wheezing, but improved. Does not appear to be infectious but workup pending. No official pulmonary function tests to confirm diagnosis of COPD. Would recommend outpatient pulmonary function tests to clarify and quantify lung disease, as patient may also have element of asthma. Endorses significant improvement with albuterol. Does have significant smoking history. Continue steroids with plan for 12 day taper at discharge. Continue aerosols, encourage incentive spirometer. Increase activity as tolerated. Wean oxygen supplementation to keep saturations 88-92%. Patient should have an ambulatory pulse ox prior to discharge from the hospital. The patient has expressed interest in following up in the pulmonary clinic upon discharge, please schedule appointment with REPAIR WELDER in 2 weeks from discharge at which time testing can be ordered. He will require a new prescription for albuterol rescue inhaler upon discharge. 2. Seizure disorder/cerebral palsy/history of DVT, suspected sleep apnea Complicates care, management, recovery, and prognosis. Patient does endorse some snoring, witnessed apnea, and some daytime sleepiness. Again, polysomnogram can be ordered as an outpatient. Thank you for the opportunity to participate in this patient's care, please do not hesitate contact us with any further questions or concerns. This note was generated with [employer] dictation software. It may contain incorrect words, spelling, and punctuation that were not noted in checking the note before signing.
[2017-08-31] MEDS: Enoxaparin 40 MG/0.4 ML Syringe SC (09:34)
[2017-08-31] MEDS: levETIRAcetam 500 MG Tablet PO ×2 (09:34→21:19)
--- NOTE | 2017-08-31 15:19 | PN_ITS ---
Patient Problems: Active and Suspected Problems Suspected chronic obstructive pulmonary disease based on initial evaluation ( Acute) Subjective: He has been afebrile since admission. Vital signs are stable. He is 94% on room air at rest and 92% on room air while ambulating. He does not feel that he is very to go home yet. I explained that he has no fever, his lungs are diminished but CTA, he will does not need oxygen at home but, he does not want to go home tonight. - Physical Exam General: Alert, Oriented x3, Cooperative, No apparent distress Lungs: Clear to auscultation, No rhonchi, No wheeze, No rales, Diminished Cardiovascular: Regular rate, Regular Rhythm, Normal S1, Normal S2, No Gallop Abdomen: Bowel Sounds Present, Soft, Non Tender, Non-Distended, Obese Extremities: No clubbing, No cyanosis, No edema Psych/Mental Status: Normal Affect, Appropriate Vital Signs Temp Pulse Resp BP Pulse Ox 98.3 F 99 16 125/81 H 92 08/31/17 09:30 08/31/17 13:07 08/31/17 13:07 08/31/17 09:30 08/31/17 09:40 Oxygen Flow Rate 2 Oxygen Delivery Method Room Air Weight: 195 lb 12.328 oz Body Mass Index (BMI) 33.5 Intake and Output for Last 24 Hours 08/29/17 08/30/17 08/31/17 23:59 23:59 23:59 Intake Total 120 / 120 1140 / 1140 600 / 600 Balance 120 / 120 1140 / 1140 600 / 600 Microbiology Past 72 Hours 08/29/17 23:30 Respiratory Panel (PCR) - Final Mucosa - Nasopharyngeal Assessment/Plan Active and Suspected Problems Suspected chronic obstructive pulmonary disease based on initial evaluation ( Acute) Impressions 1. acute exacerbation of presumptive COPD(has never had PFT's - suspect he has both restrictive ( due to the CP and muscle weakness) and obstructive disease 2. Cerebral palsy 3. former smoker 4. Seizure disorder 5. History of DVT 6. 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
[2017-09-01] VITALS (14 sets, daily range): BP systolic 114–123; BP diastolic 66–77; PULSE 82–121; RESP 16–20; TEMP 36.7–36.9; O2SAT 91–98
[2017-09-01] MEDS: Ipratropium/Albuterol Sulfate 3 ML AMPUL.NEB INHALATION ×3 (00:30→13:13)
[2017-09-01] MEDS: carBAMazepine 200 MG Tablet PO ×2 (05:52→14:53)
[2017-09-01] MEDS: levETIRAcetam 500 MG Tablet PO (08:13)
[2017-09-01] MEDS: Enoxaparin 40 MG/0.4 ML Syringe SC (09:23)
[2017-09-01] MEDS: guaiFENesin 10 ML UDC (200MG/10ML) PO (09:26)
--- NOTE | 2017-09-01 15:39 | PCM.DC ---
- Discharge Diagnoses Current Active Problems: Current Active and Chronic Problems Suspected chronic obstructive pulmonary disease based on initial evaluation (Acute) You will use the following diet at home:: Other - resume your previous diet Your food should be the consistency of: Regular Your liquids should be the consistency of: Regular/Thin Discharge Activity: Return to Normal Activity, - - Avoid exposure to any strong smells such as bleach, cleaning products, strong colognes or perfumes, paint fumes and smoke of any kind. Avoid sudden exposure to cold air because this can cause bronchospasm. You may want to cover your mouth when you go outside in the winter. Avoid exposure to anyone who is sick with a cough or sore throat. Call your doctor if you observe: Fever of 101 or Higher, Shortness of breath, Fainting spells, Chest pain Additional Instructions: 1. You will need to follow up in the pulmonary clinic in 2 weeks to arrange pulmonary function tests and a sleep study. 2. I am giving you a nasal spray to help control the post nasal drip you have that makes you cough when you lie down. It helps to dry up the drainage. Pending Tests on Discharge: none Allergies/Adverse Reactions: Allergies No Known Allergies Allergy (Verified 08/29/17 21:24) Medications to take at Discharge Carbamazepine [Tegretol] 200 mg PO TID 08/29/17 Levetiracetam 500 mg PO BID 08/29/17 Albuterol IH (ProAir) [Proair Hfa] 2 puff INHALATION Q4H PRN PRN #1 inhaler 09/01/17 Budesonide/Formoterol Fumarate [Symbicort 160-4.5 Mcg Inhaler] 10.2 gm IH BID #1 hfa.aer.ad 09/01/17 Prednisone 10 mg PO UD #30 tab 09/01/17 The following prescriptions were given: Albuterol IH (ProAir) [Proair Hfa] 2 puff INHALATION Q4H PRN PRN #1 inhaler PRN Reason: wheezing/shortness of breath Prednisone 10 mg PO UD #30 tab Budesonide/Formoterol Fumarate [Symbicort 160-4.5 Mcg Inhaler] 10.2 gm IH BID #1 hfa.aer.ad Primary Care Physician: Nakul Lopez III, MD [Primary Care Provider] - Please follow up with your Primary Care Physician in: 5-7 days Please Follow Up With: Yinka Flowers DO When: in 2 weeks with Sofia Proposed Discharge Date: 09/01/17
--- NOTE | 2017-09-01 15:49 | DCINST_ITS ---
- Discharge Diagnoses Current Active Problems: Current Active and Chronic Problems Suspected chronic obstructive pulmonary disease based on initial evaluation ( Acute) You will use the following diet at home:: Other - resume your previous diet Your food should be the consistency of: Regular Your liquids should be the consistency of: Regular/Thin Discharge Activity: Return to Normal Activity, - - Avoid exposure to any strong smells such as bleach, cleaning products, strong colognes or perfumes, paint fumes and smoke of any kind. Avoid sudden exposure to cold air because this can cause bronchospasm. You may want to cover your mouth when you go outside in the winter. Avoid exposure to anyone who is sick with a cough or sore throat. Call your doctor if you observe: Fever of 101 or Higher, Shortness of breath, Fainting spells, Chest pain Additional Instructions: 1. You will need to follow up in the pulmonary clinic in 2 weeks to arrange pulmonary function tests and a sleep study. 2. I am giving you a nasal spray to help control the post nasal drip you have that makes you cough when you lie down. It helps to dry up the drainage. Pending Tests on Discharge: none Allergies/Adverse Reactions: Allergies No Known Allergies Allergy (Verified 08/29/17 21:24) Medications to take at Discharge Carbamazepine [Tegretol] 200 mg PO TID 08/29/17 Levetiracetam 500 mg PO BID 08/29/17 Albuterol IH (ProAir) [Proair Hfa] 2 puff INHALATION Q4H PRN PRN #1 inhaler Budesonide/Formoterol Fumarate [Symbicort 160-4.5 Mcg Inhaler] 10.2 gm IH BID # 1 hfa.aer.ad 09/01/17 Prednisone 10 mg PO UD #30 tab 09/01/17 The following prescriptions were given: Albuterol IH (ProAir) [Proair Hfa] 2 puff INHALATION Q4H PRN PRN #1 inhaler PRN Reason: wheezing/shortness of breath Prednisone 10 mg PO UD #30 tab Budesonide/Formoterol Fumarate [Symbicort 160-4.5 Mcg Inhaler] 10.2 gm IH BID # 1 hfa.aer.ad Primary Care Physician: Nakul Lopez III, MD [Primary Care Provider] - Please follow up with your Primary Care Physician in: 5-7 days Please Follow Up With: Yinka Flowers DO When: in 2 weeks with Sofia Proposed Discharge Date: 09/01/17
--- NOTE | 2017-09-01 15:51 | PCM.DC.SUM ---
Discharge Date and Diagnosis Date of Admission: 08/29/17 Date of Discharge: 09/01/17 - Primary Discharge Diagnosis Active and Suspected Problems COPD exacerbation - suspected Suspected chronic obstructive pulmonary disease based on initial evaluation (Acute) - Secondary Discharge Diagnosis Chronic Problems DVT of proximal lower limb (Chronic) 2013 History of seizures (Chronic) History of cerebral palsy (Chronic) Hospital Course and Treatment Imaging Results: Clinical Impression(s) from Imaging Studies Chest X-Ray 08/29/17 16:01 IMPRESSION: Normal x-ray examination of the chest. Electronically Signed: Jabari Ayoub MD at 16:23 EST , Service support , Microbiology 08/29/17 23:30 Mucosa - Nasopharyngeal Respiratory Panel (PCR) - Final - negative Dr. Yinka Flowers - pulmonary medicine Operations: None Procedures: None Summary of Care Provided: Patient is a 67-year-old male with a past medical history of cerebral palsy, seizures and DVT's who presented to the emergency room at [facility] on 08/29/2017 complaining of shortness of breath. Shortness of breath was associated with dry cough and mild nasal congestion with post nasal drip He denied fever or chills. He has never had pulmonary function tests but uses inhalers from time to time at home. Vital signs at presentation to the emergency room were temperature 98, pulse rate 115, blood pressure 153/83, respiratory rate 16 and he was 92% saturated on room air. White blood cell count was normal at 10.6 with an unremarkable differential other than mildly increased eosinophils at 7.2. Hemoglobin and platelets were normal. D-dimer was normal at less than 0.27. Electrolytes, BUN and creatinine were all within normal limits. Respiratory panel was negative. Chest x-ray showed no pleural effusions, infiltrates or pulmonary vascular congestion. He was admitted to the hospital with a diagnosis of acute exacerbation of COPD and started on intravenous steroids, aerosols and incentive spirometry. He was seen in consultation by Dr. Flowers who agreed with aerosols and steroids and recommended follow up in the pulmonary clinic in 2 weeks post DC to arrange PFT's and PSG. He was afebrile throughout his entire hospital stay. On the date of discharge his pulse ox on room air ranged from 94-98% at rest and he was 92% ambulating on room air. Auscultation of his lungs revealed diminished breath sounds with rare expiratory wheezing. He was speaking in full sentences, had no conversational dyspnea, no accessory muscle use and he was not tachypneic. Did complain that when he lies down his cough increases and he has postnasal discharge. He was discharged on Symbicort, and albuterol metered-dose inhaler be used as needed and Atrovent nasal spray to control postnasal discharge. He was instructed to follow-up with his primary care physician, Dr. Nakul Lopez iii, in 5-7 days and with pulmonary in 2 weeks to arrange PFTs and PSG. This note was generated with [employer] dictation software. It may contain incorrect words, spelling, and punctuation that were not noted in checking the note before signing. Discharge Activity: Return to Normal Activity, - - Avoid exposure to any strong smells such as bleach, cleaning products, strong colognes or perfumes, paint fumes and smoke of any kind. Avoid sudden exposure to cold air because this can cause bronchospasm. You may want to cover your mouth when you go outside in the winter. Avoid exposure to anyone who is sick with a cough or sore throat. Call your doctor if you observe: Fever of 101 or Higher, Shortness of breath, Fainting spells, Chest pain Home Medications: Medications to take at Discharge Carbamazepine [Tegretol] 200 mg PO TID 08/29/17 Levetiracetam 500 mg PO BID 08/29/17 Albuterol IH (ProAir) [Proair Hfa] 2 puff INHALATION Q4H PRN PRN #1 inhaler 09/01/17 Budesonide/Formoterol Fumarate [Symbicort 160-4.5 Mcg Inhaler] 10.2 gm IH BID #1 hfa.aer.ad 09/01/17 Ipratropium [place] 0.06% [ATROVENT NASAL SPRAY (g)] 2 spray NASAL TID #1 nasal.sry 09/01/17 Prednisone 10 mg PO UD #30 tab 09/01/17 Following Prescrptions Were Given to Patient: Albuterol IH (ProAir) [Proair Hfa] 2 puff INHALATION Q4H PRN PRN #1 inhaler PRN Reason: wheezing/shortness of breath Prednisone 10 mg PO UD #30 tab Budesonide/Formoterol Fumarate [Symbicort 160-4.5 Mcg Inhaler] 10.2 gm IH BID #1 hfa.aer.ad Ipratropium [place] 0.06% [ATROVENT NASAL SPRAY (g)] 2 spray NASAL TID #1 nasal.sry Primary Care Physician: Nakul Lopez III, MD [Primary Care Provider] - Please follow up with your Primary Care Physician in: 5-7 days Please Follow Up With: Yinka Flowers, DO When: in 2 weeks with Sofia Disposition: Home Minutes spent on discharge:: 30 Meaningful Use Info Meaningful Use Diagnoses (Choose all that apply): None applicable Code Visit OBSV E&M: 94271 Observation care discharge
--- NOTE | 2017-09-01 15:58 | DS.PCM_ITS ---
Discharge Date and Diagnosis Date of Admission: 08/29/17 Date of Discharge: 09/01/17 - Primary Discharge Diagnosis Active and Suspected Problems COPD exacerbation - suspected Suspected chronic obstructive pulmonary disease based on initial evaluation ( Acute) - Secondary Discharge Diagnosis Chronic Problems DVT of proximal lower limb (Chronic) 2013 History of seizures (Chronic) History of cerebral palsy (Chronic) Hospital Course and Treatment Imaging Results: Clinical Impression(s) from Imaging Studies Chest X-Ray 08/29/17 16:01 IMPRESSION: Normal x-ray examination of the chest. Electronically Signed: Jabari Ayoub MD at 16:23 EST , Service support , Microbiology 08/29/17 23:30 Mucosa - Nasopharyngeal Respiratory Panel (PCR) - Final - negative Dr. Yinka Flowers - pulmonary medicine Operations: None Procedures: None Summary of Care Provided: Patient is a 67-year-old male with a past medical history of cerebral palsy , seizures and DVT's who presented to the emergency room at [facility] on 08/29/2017 complaining of shortness of breath. Shortness of breath was associated with dry cough and mild nasal congestion with post nasal drip He denied fever or chills. He has never had pulmonary function tests but uses inhalers from time to time at home. Vital signs at presentation to the emergency room were temperature 98, pulse rate 115, blood pressure 153/83, respiratory rate 16 and he was 92% saturated on room air. White blood cell count was normal at 10.6 with an unremarkable differential other than mildly increased eosinophils at 7.2. Hemoglobin and platelets were normal. D-dimer was normal at less than 0.27. Electrolytes, BUN and creatinine were all within normal limits. Respiratory panel was negative. Chest x-ray showed no pleural effusions, infiltrates or pulmonary vascular congestion. He was admitted to the hospital with a diagnosis of acute exacerbation of COPD and started on intravenous steroids, aerosols and incentive spirometry. He was seen in consultation by Dr. Flowers who agreed with aerosols and steroids and recommended follow up in the pulmonary clinic in 2 weeks post DC to arrange PFT's and PSG. He was afebrile throughout his entire hospital stay. On the date of discharge his pulse ox on room air ranged from 94-98% at rest and he was 92% ambulating on room air. Auscultation of his lungs revealed diminished breath sounds with rare expiratory wheezing. He was speaking in full sentences, had no conversational dyspnea, no accessory muscle use and he was not tachypneic. Did complain that when he lies down his cough increases and he has postnasal discharge. He was discharged on Symbicort, and albuterol metered-dose inhaler be used as needed and Atrovent nasal spray to control postnasal discharge. He was instructed to follow-up with his primary care physician, Dr. Nakul Lopez iii , in 5-7 days and with pulmonary in 2 weeks to arrange PFTs and PSG. This note was generated with [employer] dictation software. It may contain incorrect words, spelling, and punctuation that were not noted in checking the note before signing. Discharge Activity: Return to Normal Activity, - - Avoid exposure to any strong smells such as bleach, cleaning products, strong colognes or perfumes, paint fumes and smoke of any kind. Avoid sudden exposure to cold air because this can cause bronchospasm. You may want to cover your mouth when you go outside in the winter. Avoid exposure to anyone who is sick with a cough or sore throat. Call your doctor if you observe: Fever of 101 or Higher, Shortness of breath, Fainting spells, Chest pain Home Medications: Medications to take at Discharge Carbamazepine [Tegretol] 200 mg PO TID 08/29/17 Levetiracetam 500 mg PO BID 08/29/17 Albuterol IH (ProAir) [Proair Hfa] 2 puff INHALATION Q4H PRN PRN #1 inhaler Budesonide/Formoterol Fumarate [Symbicort 160-4.5 Mcg Inhaler] 10.2 gm IH BID # 1 hfa.aer.ad 09/01/17 Ipratropium Achille 0.06% [ATROVENT NASAL SPRAY (g)] 2 spray NASAL TID #1 nasal.sry 09/01/17 Prednisone 10 mg PO UD #30 tab 09/01/17 Following Prescrptions Were Given to Patient: Albuterol IH (ProAir) [Proair Hfa] 2 puff INHALATION Q4H PRN PRN #1 inhaler PRN Reason: wheezing/shortness of breath Prednisone 10 mg PO UD #30 tab Budesonide/Formoterol Fumarate [Symbicort 160-4.5 Mcg Inhaler] 10.2 gm IH BID # 1 hfa.aer.ad Ipratropium Achille 0.06% [ATROVENT NASAL SPRAY (g)] 2 spray NASAL TID #1 nasal.sry Primary Care Physician: Nakul Lopez III, MD [Primary Care Provider] - Please follow up with your Primary Care Physician in: 5-7 days Please Follow Up With: Yinka Flowers, DO When: in 2 weeks with Sofia Disposition: Home Minutes spent on discharge:: 30 Meaningful Use Info Meaningful Use Diagnoses (Choose all that apply): None applicable Code Visit OBSV E&M: 21773 Observation care discharge
== END 2017-09-01 17:05 | disposition home or self-care (01) ==
LOC: ED 16:36 → MS2 20:34
PROVIDERS: Admitting Provider Hospitalist; Emergency Provider Emergency Medicine; Family Provider Family Medicine; PCP Family Medicine; Visit Provider Internal Medicine
DX: R06.02 Shortness of breath (principal); R09.81 Nasal congestion; R09.82 Postnasal drip; G80.9 Cerebral palsy, unspecified; R09.02 Hypoxemia; G40.909 Epilepsy, unspecified, not intractable, without status epilepticus; Z86.718 Personal history of other venous thrombosis and embolism; Z87.891 Personal history of nicotine dependence; Z79.899 Other long term (current) drug therapy
CPT/HCPCS: 71045; 80048; 83880; 84484; 85025; 85379; 87633; 93005; 94640; 94667; 94668; 96372; 96374; 97110; 97116; 97162; 97165; 97530; 97802; 99218; 99285; A4216; G0378

== ENCOUNTER 2018-07-20 18:44 | Emergency (ER) | payer MEDICARE, SELFPAY ==
[2018-07-20 18:45] VITALS: BP 155/82; PULSE 89; RESP 16; TEMP 36.7; O2SAT 94; BMI 33.2
--- NOTE | 2018-07-20 19:25 | EKG12_ITS ---
Test Reason : SOB Blood Pressure : / mmHG Vent. Rate : 086 BPM Atrial Rate : 086 BPM P-R Int : 158 ms QRS Dur : 090 ms QT Int : 384 ms P-R-T Axes : 068 094 064 degrees QTc Int : 459 ms Normal sinus rhythm Rightward axis Borderline ECG Confirmed by DULCE TRIPATHI, CATALINO ([id number]), advertising editor DANDY MARIE ([id number]) on 07/24/2018 8:49:12 AM Referred By: ROB Confirmed By:CATALINO CARDONA MD
--- NOTE | 2018-07-20 19:27 | ED.VISSUMM ---
- ER Visit Summary Date of Service: 07/20/18 Chief Complaint: Cough and shortness of breath History of Present Illness: The patient is a 68 M history of COPD not on O2. Prior DVT currently on no anticoagulation. No chest pain no hemoptysis. Patient states for the last 7-10 days gradual onset of cough with greenish sputum. Shortness of breath. Denies chest pain. Denies nausea vomiting or diarrhea. Denies fever. Denies any leg swelling. He does have a history of cerebral palsy with right-sided weakness from that. Physical Examination: Older male no acute distress. Vital signs are stable. He is afebrile. His pulse ox is 94% on room air no signs of hypoxia. HEENT exam unremarkable. Neck nontender no JVD nor lymphadenopathy. Lungs expiratory wheezing in both bases. No rales or rhonchi. Equal symmetrical. Heart regular rhythm rate about 90 no murmur. Chest wall nontender. Abdomen soft nontender. Normal bowel sounds no peritoneal signs. Patient is significantly weak with the right upper and right lower extremity from his prior cerebral palsy. Calves are nontender without edema or cords. Left upper and left lower extremity are unremarkable with normal range of motion. Neurologically he is awake and alert. He has a chronic right-sided weakness from the cerebral palsy. Otherwise no focal deficits. Test Results: CBC shows a white count of 7. Hemoglobin of 12 which is his baseline. Electrolytes unremarkable. Normal creatinine and gap. Troponin normal. EKG sinus rhythm rate 86 with no acute abnormality. Chest x-ray shows chronic changes but no acute abnormality. No pneumonia. Read both by myself and the radiologist. Emergency Department Course and Treatment: Patient treated with IV Solu-Medrol, albuterol and DuoNeb aerosols. Worked up with lab work and a chest x-ray. Repeat exam patient is doing well at 2140. He is comfortable being discharged home. Patient is doing well currently his wheezing is resolved. Treatment Plan: Prednisone 40 mg a day for 1 week. Continue his inhaler. Follow-up with his primary care physician. Disposition: Discharge Impression: Acute exacerbation of COPD. Viral URI. This note was generated with [employer] dictation software. It may contain incorrect words, spelling, and punctuation that were not noted in review of the chart prior to signing ED Disposition - Plan for ED Patient: Chief Complaint: Shortness of Breath Referrals: Nakul Lopez III, MD [Primary Care Provider] -
[2018-07-20 19:34] VITALS: BP 140/71; PULSE 85; RESP 16; TEMP 36.7; O2SAT 94
[2018-07-20 19:48] VITALS: O2SAT 94
[2018-07-20] MEDS: MethylPREDNISolone 125 MG/2 ML Vial IV (19:49)
--- NOTE | 2018-07-20 20:04 | RAD_ITS ---
STUDY: X-RAY CHEST REASON FOR EXAM: Male, 68 years old. Shortness of breath and cough times several days TECHNIQUE: PA and lateral views of the chest. COMPARISON: Previous study of August 29, 2017 FINDINGS: traffic i manager leads are present. The lungs are clear and expanded. There is no demonstrated pleural abnormality. Normal size heart. Normal mediastinum and nick. Normal visualized pulmonary arteries. Normal visualized aortic arch and descending thoracic aorta. There are diffuse degenerative changes of the visualized thoracic spine. Normal visualized ribs, clavicles, and shoulders. There is no demonstrated abnormality of the visualized soft tissue structures of the upper abdomen. RAD/Chest PA and Lateral IMPRESSION: Degenerative changes, as described above. No demonstrated acute cardiopulmonary process. Electronically Signed: Tremayne David MD at 20:20 EST , Service support ,
[2018-07-20 20:09] LABS: Absolute Lymphocyte Count 1.41 X10^3/ul (0.83-4.51); Absolute Neutrophil Count 4.4 X10^3/uL (2.0-7.7); Basophil# 0.06 X10^3/uL; Basophil% 0.8 % (0-1); Eosinophil# 0.99 X10^3/uL; Hematocrit 38.8 % (40-54); Hemoglobin 12.3 g/dl (13.0-16.5); Lymphocyte # 1.41 X10^3/ul (4.0); Lymphocyte % 18.6 % (19-41); Mean Corp Hgb Conc 31.7 g/gl (32-36); Mean Corpuscular Hgb 30.7 pg (27.0-32.0); Mean Corpuscular Volume 96.8 fL (80-94); Mean Platelet Vol. 9.8 fl (6.2-12.0); Monocyte# 0.73 X10^3/uL; Monocyte% 9.6 % (0-10); Neutrophil # 4.39 X10^3/uL (2.7-7.7); Neutrophil % 57.9 % (47-70); Platelet Count 248 K/mm3 (150-450); RBC Distribution Width CV 13.7 % (11.6-14.6); RBC Distribution Width SD 48.8 fl (35.1-43.9); Red Blood Count 4.01 M/mm3 (4.6-6.2); White Blood Count 7.6 K/mm3 (4.4-11.0)
[2018-07-20] MEDS: Ipratropium/Albuterol Sulfate 3 ML AMPUL.NEB INHALATION (20:10)
[2018-07-20] MEDS: Albuterol 2.5 MG/3 ML VIAL.NEB. INHALATION (20:10)
[2018-07-20 20:14] LABS: POSITIVE COUNT NO; POSITIVE DIFFERENTIAL NO; POSITIVE MORPHOLOGY NO
[2018-07-20 20:16] LABS: Anion Gap 8 (5-15); BUN 12 mg/dL (7-18); BUN/Creat Ratio 12.3 RATIO (10-20); Calcium,Total 8.7 mg/dL (8.5-10.1); Chloride 104 mmol/L (98-107); Creatinine, Serum 0.97 mg/dL (0.70-1.30); EST Glomerular Filtration Rate 81 mL/min (>60); Est Glom Filt Rate - Afr Amer 98 mL/min (>60); Glucose 99 mg/dL (74-106); Sodium Level 140 mmol/L (136-145)
[2018-07-20 20:47] VITALS: BP 136/72; PULSE 82; PULSE 83; RESP 16; TEMP 36.7; O2SAT 94
--- NOTE | 2018-07-20 21:50 | ED.DEP ---
ED Disposition - Plan for ED Patient: Disposition: Home or Assisted Living Chief Complaint: Shortness of Breath Instructions: ED COPD Flare Prescriptions: Prednisone [Deltasone] 40 mg PO DAILY 7 Days tab Referrals: Nakul Lopez III, MD [Primary Care Provider] - 3-5 Days Additional Instructions: Prednisone 40 mg a day for the next 7 days. Use your inhaler as needed. Follow-up with your doctor early next week for repeat evaluation.
[2018-07-20 22:07] VITALS: BP 137/77; PULSE 78; RESP 18; O2SAT 94
--- NOTE | 2018-07-20 22:08 | ED.RN ---
PT GIVEN WRITTEN AND VERBAL DISCHARGE INSTRUCTIONS AND HOME GOING PRESCRIPTIONS. PT VERBALIZES UNDERSTANDING AND DENIES ANY FURTHER QUESTIONS. PT IV D/C AND COVERED WITH 2X2 GAUZE AND PAPER TAPE. PT PLACED IN WHEELCHAIR AND WHEELED TO LOBBY. PT AWAITING MOTHER TO TAKE HIM HOME.
== END 2018-07-20 22:10 | disposition home or self-care (01) ==
PROVIDERS: Emergency Provider Emergency Medicine; Family Provider Family Medicine; PCP Family Medicine
DX: J44.1 Chronic obstructive pulmonary disease with (acute) exacerbation (principal); J06.9 Acute upper respiratory infection, unspecified; G80.9 Cerebral palsy, unspecified; Z87.891 Personal history of nicotine dependence; Z79.899 Other long term (current) drug therapy
CPT/HCPCS: 71046; 80048; 84484; 85025; 93005; 94640; 96374; 99285; A4216

== ENCOUNTER 2018-10-19 17:07 | Emergency (ER) | payer MEDICARE, SELFPAY ==
[2018-10-19 17:08] VITALS: BP 137/68; PULSE 109; RESP 20; TEMP 36.2; O2SAT 92; BMI 32.4
--- NOTE | 2018-10-19 17:18 | EKG12_ITS ---
Test Reason : SOB Blood Pressure : / mmHG Vent. Rate : 094 BPM Atrial Rate : 094 BPM P-R Int : 150 ms QRS Dur : 088 ms QT Int : 354 ms P-R-T Axes : 067 100 065 degrees QTc Int : 442 ms Normal sinus rhythm Rightward axis Borderline ECG Confirmed by DULCE TRIPATHI, CATALINO ([id number]), book editor SLIM SILVA ([id number]) on 10/22/2018 10:57:11 AM Referred By: DANY Confirmed By:CATALINO CARDONA MD
--- NOTE | 2018-10-19 17:18 | RAD_ITS ---
STUDY: X-RAY CHEST REASON FOR EXAM: Male, 68 years old. Cough TECHNIQUE: PA and lateral views of the chest. COMPARISON: July 20, 2018 FINDINGS: Stable lung markings. No definitive acute focal infiltrate. There is no demonstrated pleural abnormality. Normal size heart. Normal mediastinum and nick. Normal visualized pulmonary arteries. Normal visualized aortic arch and descending thoracic aorta. There are diffuse degenerative changes of the visualized thoracic spine. Normal visualized ribs, clavicles, and shoulders. There is no demonstrated abnormality of the visualized soft tissue structures of the upper abdomen. RAD/Chest PA and Lateral IMPRESSION: Degenerative changes, as described above. No demonstrated acute cardiopulmonary process. Electronically Signed: Rola Barahona MD at 18:20 EDT Tel , Service support ,
[2018-10-19 17:22] VITALS: BP 110/68; PULSE 105; RESP 21; TEMP 36.2; O2SAT 93
[2018-10-19 17:25] VITALS: PULSE 108; RESP 24
[2018-10-19] MEDS: Albuterol 2.5 MG/3 ML VIAL.NEB. INHALATION ×3 (17:25)
[2018-10-19] MEDS: Ipratropium/Albuterol Sulfate 3 ML AMPUL.NEB INHALATION (17:25)
[2018-10-19 17:27] VITALS: O2SAT 93
[2018-10-19] MEDS: MethylPREDNISolone 125 MG/2 ML Vial IV (17:48)
[2018-10-19] MEDS: 0.9% Normal Saline 1,000 ML 150 ML IV (17:48)
[2018-10-19 18:01] LABS: Absolute Lymphocyte Count 2.05 X10^3/ul (0.83-4.51); Absolute Neutrophil Count 5.6 X10^3/uL (2.0-7.7); Basophil# 0.06 X10^3/uL; Basophil% 0.6 % (0-1); Eosinophil# 1.44 X10^3/uL; Eosinophils% 14.5 % (0-5); Hematocrit 38.2 % (40-54); Hemoglobin 12.4 g/dl (13.0-16.5); Lymphocyte # 2.05 X10^3/ul (4.0); Lymphocyte % 20.6 % (19-41); Mean Corp Hgb Conc 32.5 g/gl (32-36); Mean Corpuscular Hgb 30.8 pg (27.0-32.0); Mean Platelet Vol. 10.3 fl (6.2-12.0); Neutrophil # 5.57 X10^3/uL (2.7-7.7); Neutrophil % 56.1 % (47-70); Platelet Count 324 K/mm3 (150-450); RBC Distribution Width CV 12.8 % (11.6-14.6); RBC Distribution Width SD 43.4 fl (35.1-43.9); Red Blood Count 4.02 M/mm3 (4.6-6.2); White Blood Count 9.9 K/mm3 (4.4-11.0)
--- NOTE | 2018-10-19 18:03 | ED.DCSUM_ITS ---
- ER Visit Summary Date of Service: 10/19/18 Chief Complaint: Shortness of breath History of Present Illness: The patient is a 68 M with history of COPD who is not on home oxygen presents to the emergency department shortness of breath. Patient states over the past 10 days, he had exertional dyspnea, wheezing, and nonproductive cough. He has not on oxygen at home. He states if he walks a distance, he will feel more short of breath. He denies any chest pain. He denies any orthopnea or pleuritic pain. The patient does have a remote history of smoking but quit 8 years ago. He states his been compliant with his medications. He denies any fevers or chills. Physical Examination: Vital signs reviewed General: Well-nourished, well-developed Head: Normocephalic, atraumatic Eyes: Pupils equal and reactive, extraocular muscles intact Neck, supple, no lymphadenopathy Heart: Regular rate and rhythm Respiratory: No distress, wheezing in all lung gómez Abdomen: Soft, nontender, nondistended, no peritoneal signs Back: Nontender Extremities: Nontender, no edema, no cords Skin: Normal color no rash Neuro: Alert and oriented, no focal or lateralizing deficits Test Results: [] Emergency Department Course and Treatment: The patient presents with a COPD exacerbation. Is not hypoxic but does have wheezing in all lung gómez. EKG demonstrates sinus tachycardia without acute ischemia. Cardiac enzymes are normal. Chest x-ray shows no evidence of focal infiltrative process of volume overload. Patient is not hypoxic. With nebulized breathing treatments, his aeration has improved. He is resting comfortably without tachypnea. At this point, I do feel the patient is safe for outpatient therapy. I am going to treat him with doxycycline and prednisone. He is comfortable with this plan of care and will be discharged home. Treatment Plan: [] Disposition: Discharge Impression: 1. COPD exacerbation This note was generated with [employer] dictation software. It may contain incorrect words, spelling, and punctuation that were not noted in review of the chart prior to signing ED Disposition - Plan for ED Patient: Instructions: ED COPD Flare Prescriptions: Prednisone [Deltasone] 60 mg PO DAILY #15 tab Doxycycline 100 mg PO BID #20 cap Referrals: Nakul Lopez III, MD [Primary Care Provider] -
[2018-10-19 18:04] LABS: POSITIVE COUNT NO; POSITIVE DIFFERENTIAL NO; POSITIVE MORPHOLOGY NO
[2018-10-19 18:22] LABS: Anion Gap 7 (5-15); BUN 15 mg/dL (7-18); BUN/Creat Ratio 12.9 RATIO (10-20); Calcium,Total 8.7 mg/dL (8.5-10.1); Chloride 108 mmol/L (98-107); Creatinine, Serum 1.16 mg/dL (0.70-1.30); EST Glomerular Filtration Rate 66 mL/min (>60); Est Glom Filt Rate - Afr Amer 80 mL/min (>60); Estimated Creatinine Clearance 53.02 ml/min; Glucose 140 mg/dL (74-106); Potassium 3.6 mmol/L (3.5-5.1); Sodium Level 142 mmol/L (136-145)
[2018-10-19 18:31] LABS: BNP,B-Type NATRIURETIC PEPTIDE < 2.0 pg/mL (0-100)
[2018-10-19] MEDS: Doxycycline 100 MG CAPSULE PO (19:19)
[2018-10-19 19:23] VITALS: BP 136/68; PULSE 106; RESP 18; O2SAT 94
== END 2018-10-19 19:42 | disposition home or self-care (01) ==
PROVIDERS: Emergency Provider Emergency Medicine; Family Provider Family Medicine; PCP Family Medicine
DX: J44.1 Chronic obstructive pulmonary disease with (acute) exacerbation (principal); I10 Essential (primary) hypertension; Z87.891 Personal history of nicotine dependence
CPT/HCPCS: 71046; 80048; 83880; 84484; 85025; 93005; 94640; 96361; 96374; 99285; J7030

== ENCOUNTER 2023-02-24 13:54 | Emergency (ER) | payer MEDICARE, SELFPAY ==
[2023-02-24 13:55] VITALS: BP 159/80; PULSE 72; RESP 18; TEMP 36.2; O2SAT 99
--- NOTE | 2023-02-24 14:30 | RAD_ITS ---
STUDY: X-RAY - RIGHT FOOT CLINICAL: Male, 72 years old. Pain following a twisting injury. TECHNIQUE: 3 view(s) of the foot. COMPARISON: None. FINDINGS: There is a plantar calcaneal spur. Normal visualized subtalar, talonavicular, calcaneocuboid, tarsal and tarsometatarsal articulations. Nondisplaced transverse fracture at the base of the fifth metatarsal. Normal metatarsophalangeal joint of the great toe. Normal tibial and fibular sesamoid bones. Normal interphalangeal joint of the great toe. Normal phalanges of the great toe. Normal second through fifth metatarsophalangeal joints. Normal interphalangeal joints and phalanges of the lesser toes. Soft tissue swelling. RAD/Foot min 3 Views IMPRESSION: Nondisplaced transverse fracture at the base of the fifth metatarsal with overlying soft tissue swelling. Electronically Signed: Vj Fisher MD at 14:59 EDT ,
--- NOTE | 2023-02-24 14:30 | RAD_ITS ---
STUDY: X-RAY - RIGHT ANKLE REASON FOR EXAM: Male, 72 years old. Twisting injury. TECHNIQUE: 3 view(s) of the ankle. COMPARISON: None. FINDINGS: Nondisplaced transverse fracture at the base of the fifth metatarsal. Normal visualized distal tibia and fibula. Normal medial and lateral malleoli. Normal tibiotalar articulation and ankle mortise. Small calcaneal spurs. The visualized subtalar, talonavicular, calcaneocuboid and tarsal articulations are normal. Lateral soft tissue swelling. Soft tissue calcification along the posterior aspect of the distal leg. RAD/Ankle min 3 Views IMPRESSION: Nondisplaced transverse fracture at the base of the fifth metatarsal. Soft tissue swelling. Soft tissue calcifications. Electronically Signed: Vj Fisher MD at 14:54 EDT ,
[2023-02-24 19:04] VITALS: BMI 34.2
--- NOTE | 2023-02-24 19:39 | EDS_ITS ---
HPI History of Present Illness HPI Narrative: Patient presents with right foot and ankle injury that occurred today. Patient states he tripped and fell. Patient states he twisted his right ankle. Patient states his pain is worse with any weightbearing. Patient states it is better with rest. Patient describes his pain as a dull ache. Patient denies any head injury or loss of consciousness. Patient admits to an abrasion over his left forearm that occurred when he tried to grab a table to prevent him from falling. Patient denies any other injuries. Patient denies any paresthesias or weakness. Chief Complaint: Lower Extremity Injury Informant: patient Occured/Mechanism Mechanism/Context: Yes fall Onset/Context/Timing Onset: Today Context: Sudden Onset Timing: Continuous Quality of Pain: Dull Location: Right foot and ankle Worsened by: Weightbearing Relieved by: Rest Associated Symptoms Associated Symptoms: Negative for Parasthesia, Weakness or Loss of Funtion [facility] Medical History (Updated 02/24/23 @ 19:[address] Prince Zimmer, DO) COPD with exacerbation DVT of proximal lower limb History of cerebral palsy History of seizures Post-nasal drip Suspected chronic obstructive pulmonary disease based on initial evaluation Home Medications carbamazepine 200 mg tablet 200 mg PO TID seizures 08/29/17 [History Last Taken 08/29/17 11:30] levetiracetam 500 mg tablet 500 mg PO BID seizures 08/29/17 [History Last Taken 08/29/17 11:30] albuterol sulfate 90 mcg/actuation aerosol inhaler 2 puff inhalation Q4H PRN PRN wheezing/shortness of breath ##1 09/01/17 [Rx Last Taken Unknown] budesonide-formoterol HFA 160 mcg-4.5 mcg/actuation aerosol inhaler 10.2 gm IH BID ##1 09/01/17 [Rx Last Taken Unknown] ipratropium bromide 42 mcg (0.06 %) nasal spray 2 spray NASAL TID ##1 09/01/17 [Rx Last Taken Unknown] prednisone 10 mg tablet 10 mg PO UD #30 tabs 09/01/17 [Rx Last Taken Unknown] doxycycline monohydrate 100 mg capsule 100 mg PO BID #20 caps 10/19/18 [Rx Last Taken Unknown] prednisone 20 mg tablet 60 mg (3 x 20 mg) PO DAILY #15 tabs 10/19/18 [Rx Last Taken Unknown] Allergy/AdvReac Type Severity Reaction Status Date / Time No Known Allergies Allergy Verified 02/24/23 13:57 Social History Smoking Status: Former smoker second hand exposure: No alcohol intake: never substance use type: does not use caffeine: Yes Type: coffee Number of servings: 2 and tea what type of physical activity do you participate in: none ROS ROS ED Constitutional Constitutional ED: Denies chills or fever(s) Eyes Eyes: Denies blurry vision or change in vision ENT ENT ED: Denies rhinorrhea or sore throat Cardiovascular Cardiovascular: Denies chest pain or palpitations Respiratory/Chest Respiratory/Chest: Denies cough or dyspnea Gastrointestinal Gastrointestinal: Denies nausea or vomiting Genitourinary Genitourinary ED: Denies dysuria or hematuria Musculoskeletal Musculoskeletal: Denies back pain or neck pain Integumentary Denies abscess or rash Neurologic Neurologic: Denies headache(s) or weakness Allergic/Immunologic Allergic/Immunologic ED: Denies mouth swelling or urticaria EXAM Physical Exam Const Vital Signs: 02/24/23 13:55 Temperature 97.1 F L Temperature Source Temporal Pulse Rate 72 Respiratory Rate 18 Blood Pressure 159/80 H Blood Pressure Mean 106 Pulse Ox 99 Oxygen Delivery Method Room Air Positive well nourished and well developed General Appearance ED: well developed and NAD HEENT Reports moist mucous membranes Extremity Extremity Narrative: There is tenderness and edema over the right ankle and right foot. There is no obvious deformity noted. Range of motion was limited in all motions of the right ankle secondary to pain. Sensation was intact to light touch in all digits. Capillary refill was less than 2 seconds in all digits. Pedal pulses were equal bilaterally. Neuro oriented x3 Sensorium / Orientation: alert Motor Exam: strength 5/5 throughout Psych mental status grossly normal MDM MDM MDM Narrative Medical decision making narrative: Differential diagnosis includes ankle fracture, foot fracture, sprain, and contusion. X-rays of the right foot will be obtained to assess for fracture. X-rays of the right ankle will be obtained to assess for fracture. Radiography Diagnostic Testing: Clinical Impression(s) from Imaging Studies Ankle X-Ray 02/24/23 14:30 IMPRESSION: Nondisplaced transverse fracture at the base of the fifth metatarsal. Soft tissue swelling. Soft tissue calcifications. Electronically Signed: Vj Fisher MD at 14:54 EDT , Foot X-Ray 02/24/23 14:30 IMPRESSION: Nondisplaced transverse fracture at the base of the fifth metatarsal with overlying soft tissue swelling. Electronically Signed: Vj Fisher MD at 14:59 EDT , X-rays of the right ankle were obtained. There are 3 views. On my independent interpretation, there is a nondisplaced fracture of the base of the fifth metatarsal extending into the tarsometatarsal joint. There is no dislocation. There is some mild soft tissue swelling. Radiologist also interpreted the x- rays and agrees. X-rays of the right foot were obtained. There are 3 views. On my independent interpretation, there is a nondisplaced fracture of the base of the fifth metatarsal extending into the tarsometatarsal joint. There is no dislocation. There is some mild soft tissue swelling. Radiologist also interpreted the x- rays and agrees. Treatment and Re-Evaluation Narrative: Patient was advised of his findings. Patient was given a walking boot. Patient normally ambulates with a cane. Patient was instructed to ice and elevate the right foot. Patient was given a referral for orthopedics. Patient was instructed to follow-up in 5 to 7 days. Patient understood and was agreeable with the plan. All questions were answered. Discharge Plan Triage Chief Complaint: Lower Extremity Injury ED Provider: Prince Zimmer Dx/Rx/DC Orders Clinical Impression: Closed nondisplaced fracture of fifth right metatarsal bone, History of cerebral palsy Instructions: ED Fracture, Foot Prescriptions: No Action levetiracetam 500 MG tablet 500 mg PO BID Patient Comments: seizures carbamazepine 200 MG tablet 200 mg PO TID Patient Comments: seizures budesonide-formoterol 6 GM HFA aerosol inhaler 10.2 gm IH BID Qty: 1 0RF albuterol sulfate 1 PUFF inhaler 2 puff INHALATION Q4H PRN PRN (Reason: wheezing/shortness of breath) Qty: 1 0RF prednisone 10 MG tablet 10 mg PO UD Qty: 30 0RF Rx Instructions: TAKE 4 TABLETS BY MOUTH DAILY WITH FOOD FOR 3 DAYS, THEN TAKE 3 TABLETS BY MOUTH DAILY WITH FOOD FOR 3 DAYS, THEN TAKE 2 TABLETS BY MOUTH DAILY WITH FOOD FOR 3 DAYS, THEN TAKE 1 TABLETS BY MOUTH DAILY WITH FOOD FOR 3 DAYS, THEN STOP ipratropium bromide 1 SPRAY spray,non-aerosol 2 spray NASAL TID Qty: 1 0RF prednisone 20 MG tablet 60 mg PO DAILY Qty: 15 0RF Rx Instructions: With food doxycycline monohydrate 100 MG capsule 100 mg PO BID Qty: 20 0RF Primary Care Provider: Efe Patel Referrals: Raoul Cardenas DO [Med Staff - Active Staff] - 5-7 Days Efe Patel MD [Primary Care Provider] - 5-7 Days Disposition Disposition: Home, Self Care
== END 2023-02-24 20:31 | disposition home or self-care (01) ==
PROVIDERS: Emergency Provider Emergency Medicine; PCP Family Medicine; Visit Provider Emergency Medicine
DX: S92.354A Nondisplaced fracture of fifth metatarsal bone, right foot, initial encounter for closed fracture (principal); G80.9 Cerebral palsy, unspecified; W01.0XXA Fall on same level from slipping, tripping and stumbling without subsequent striking against object, initial encounter; Z87.891 Personal history of nicotine dependence
CPT/HCPCS: 73610; 73630; 99284

== ENCOUNTER 2023-06-23 13:13 | Observation (INO) | payer MEDICARE, SELFPAY ==
[2023-06-23 13:14] VITALS: BP 124/65; PULSE 82; RESP 16; TEMP 36.3; O2SAT 98; BMI 34.0
--- NOTE | 2023-06-23 14:09 | CT_ITS ---
STUDY: CT BRAIN WITHOUT CONTRAST REASON FOR EXAM: Male, 73 years old. Cerebral palsy. Dizziness. Seizures. RADIATION DOSAGE (If Supplied By Facility): CTDIvol = ( 44.99 ) mGy, DLP = ( 812.98 ) mGycm TECHNIQUE: Transaxial CT imaging of the brain was performed without administration of intravenous contrast material. Individualized dose optimization techniques were used for this CT. COMPARISON: Comparison is made with prior study dated July 26, 2013. FINDINGS: Normal soft tissue structures. Prior left temporal craniotomy. Mild dilatation of the left ventricle. Diffuse encephalomalacia involving the left frontal temporal parietal and occipital lobes. Evidence of subluxation in the left basal ganglion. Normal basal ganglia and thalami. Normal brainstem. Normal cerebellum. There is no intracranial hemorrhage. There are no findings of an acute ischemic infarction. Normal visualized paranasal sinuses. CT/Brain/Head without Contrast IMPRESSION: Chronic involutional changes of the brain. Stable examination. Electronically Signed: Vj Fisher MD at 14:57 EST ,
--- NOTE | 2023-06-23 14:10 | EX.ED.DYSGE1 ---
HPI History of Present Illness Chief Complaint: Dizziness Detail of Chief Complaint: Dizziness Informant: patient Narrative Narrative: Patient presents to the emergency department complaint of dizziness that started yesterday. Patient states that it gets worse with standing and feels like sometimes things go around and round. Patient states he gets better when he lies down. He had similar episodes in the past but typically resolve after 24 hours. Patient denies any chest pain or shortness of breath. Denies any falls or head injuries. He denies recent illness. Denies any blood in stool or black tarry stool. Patient has history of cerebral palsy but normally ambulates on his own. [facility] Medical History (Updated 06/23/23 @ 16:[address] Ethan Martinez, ) COPD with exacerbation DVT of proximal lower limb History of cerebral palsy History of seizures Post-nasal drip Suspected chronic obstructive pulmonary disease based on initial evaluation Home Medications carbamazepine 200 mg tablet 200 mg PO TID seizures 08/29/17 [History Last Taken 08/29/17 11:30] levetiracetam 500 mg tablet 500 mg PO BID seizures 08/29/17 [History Last Taken 08/29/17 11:30] albuterol sulfate 90 mcg/actuation aerosol inhaler 2 puff inhalation Q4H PRN PRN wheezing/shortness of breath ##1 09/01/17 [Rx Last Taken Unknown] budesonide-formoterol HFA 160 mcg-4.5 mcg/actuation aerosol inhaler 10.2 gm IH BID ##1 09/01/17 [Rx Last Taken Unknown] ipratropium bromide 42 mcg (0.06 %) nasal spray 2 spray NASAL TID ##1 09/01/17 [Rx Last Taken Unknown] prednisone 10 mg tablet 10 mg PO UD #30 tabs 09/01/17 [Rx Last Taken Unknown] doxycycline monohydrate 100 mg capsule 100 mg PO BID #20 caps 10/19/18 [Rx Last Taken Unknown] prednisone 20 mg tablet 60 mg (3 x 20 mg) PO DAILY #15 tabs 10/19/18 [Rx Last Taken Unknown] fluticasone 500 mcg-salmeterol 50 mcg/dose blistr powdr for inhalation 1 inh inhalation DAILY 06/23/23 [History Last Taken Unknown] levothyroxine 100 mcg tablet 100 mcg PO DAILY 06/23/23 [History Last Taken Unknown] Allergy/AdvReac Type Severity Reaction Status Date / Time No Known Allergies Allergy Verified 06/23/23 13:14 Social History Smoking Status: Former smoker second hand exposure: No alcohol intake: never substance use type: does not use caffeine: Yes Type: coffee Number of servings: 2 and tea what type of physical activity do you participate in: none ROS ROS ED Review of Systems ROS Unobtainable: other Constitutional Constitutional ED: Reports lethargy; Denies chills, fever(s), sweats or weight loss Eyes Eyes: Denies blurry vision, change in vision or diplopia ENT ENT ED: Denies rhinorrhea or sore throat Cardiovascular Cardiovascular: Denies chest pain, orthopnea or racing heartbeat Respiratory/Chest Respiratory/Chest: Denies cough, dyspnea, dyspnea on exertion, orthopnea or sputum Gastrointestinal Gastrointestinal: Denies abdominal pain, diarrhea, nausea or vomiting Genitourinary Genitourinary ED: Denies dysuria, hematuria or urinary frequency Musculoskeletal Musculoskeletal: Denies arthralgias, back pain, myalgias or neck pain Integumentary Denies abscess, Abrasions or rash Neurologic Neurologic: Reports other Details: Dizziness ; Denies headache(s) or weakness Psychiatric Psychiatric: Denies anxiety, depression or suicidal thoughts Endocrine Endocrinology: Denies polydipsia, polyphagia or polyuria Hematologic/Lymphatic Hematologic/Lymphatic: Denies easy bleeding, easy bruising or lymphadenopathy Allergic/Immunologic Allergic/Immunologic ED: Denies mouth swelling, tongue swelling or urticaria EXAM Physical Exam Const Vital Signs: 06/23/23 13:14 06/23/23 15:37 06/23/23 16:27 Temperature 97.4 F L Temperature Source Oral Pulse Rate 82 74 Pulse Rate [Lying] 74 Pulse Rate [Sitting (for 1 minute prior to obtaining)] 77 Pulse Rate [Standing (for 1 minute prior to obtaining)] 80 Respiratory Rate 16 15 Blood Pressure 124/65 H 128/78 H Blood Pressure [Lying] 136/74 H Blood Pressure [Sitting (for 1 minute prior to obtaining)] 125/80 H Blood Pressure [Standing (for 1 minute prior to obtaining)] 130/80 H Blood Pressure Mean 84 94 Blood Pressure Mean [Lying] 94 Blood Pressure Mean [Sitting (for 1 minute prior to obtaining)] 95 Blood Pressure Mean [Standing (for 1 minute prior to obtaining)] 96 Pulse Ox 98 94 Oxygen Delivery Method Room Air Positive well nourished and well developed General Appearance ED: well developed and NAD HEENT Reports TM's clear and moist mucous membranes normocephalic and atraumatic; Negative for trauma or tenderness Tympanic Membrane ED: Yes TM's clear Eyes PERRL and EOMs intact bilaterally General Eye ED: Negative for pale conjunctiva or scleral icterus Neck no lymphadenopathy, supple and no JVD General: Negative for tenderness Chest Wall inspection of chest normal and palpation of chest normal Chest: Negative for tenderness Resp normal respiratory effort and clear to auscultation bilaterally Effort and Inspection: Negative for respiratory distress or pain with movement Auscultation: Negative for rhonchi, wheezes or diminished lung sounds Cardio regular rate, regular rhythm, S1 normal heart sound, S2 normal heart sound and no murmurs Peripheral Pulses: pulses 2+ throughout GI normal to inspection, nondistended, normoactive bowel sounds, soft to palpation, non-tender, non-distended and no masses Back/Spine no CVA tenderness and no thoracic nor lumbar tenderness Extremity normal to inspection General Extremety ED: Negative for edema General Extremity: Negative for edema Neuro oriented x3, CN's II-XII intact bilaterally, no sensory deficits noted and gait normal Neuro Narrative: Right arm chronically contracted secondary to history of cerebral palsy. Hallpike maneuver negative for nystagmus. And could not reproduce his symptoms. No focal deficits otherwise. Sensorium / Orientation: awake, alert, oriented to person, oriented to place and oriented to time Motor Exam: strength 5/5 throughout and strength abnormal Psych mental status grossly normal Skin no rashes or lesions noted and no wounds MDM MDM MDM Narrative Medical decision making narrative: Complaints with a complaint of dizziness. Hallpike maneuver was negative for nystagmus. Says he is better with laying flat. Orthostatic vital signs were unremarkable however he did complain of dizziness the entire time. CT scan of the brain obtained was unremarkable. EKG obtained showed sinus rhythm with a rate of 78 bpm with no acute ST segment changes. CBC with differential unremarkable. Chemistries unremarkable. Your is unremarkable. At this point etiology of dizziness unclear. I did order 1 dose of Antivert. Discussed case with hospitalist will evaluate patient for admission as family concerned about taking him home as they are not able to care for him as he is unable to stand and walk currently. Hospitalist asked that I try to obtain an MRI of the patient's brain and will admit at least for observation. Lab Data Attestation: I reviewed the patient's lab results. Labs: Laboratory Results - last 24 hr 06/23/23 06/23/23 14:20 15:19 WBC 9.3 RBC 3.81 L Hgb 12.3 L Hct 37.3 L MCV 97.9 H MCH 32.3 H MCHC 33.0 RDW Std Deviation 46.9 H RDW Coeff of Julius 13.2 Plt Count 277 MPV 9.9 Immature Gran % (Auto) 0.900 Neut % (Auto) 71.2 H Lymph % (Auto) 16.1 L [place] % (Auto) 8.6 Eos % (Auto) 2.3 Baso % (Auto) 0.9 Absolute Neuts (auto) 6.7 Absolute Lymphs (auto) 1.50 Nucleated RBC % 0 Sodium 139 Potassium 3.8 Chloride 109 H Carbon Dioxide 27.0 Anion Gap 3 L BUN 12 Creatinine 1.26 Estim Creat Clear Calc 45.42 Est GFR (MDRD) Af Amer 72 Est GFR (MDRD) Non-Af 60 BUN/Creatinine Ratio 9.5 L Glucose 108 H Calcium 8.4 L Troponin I High Sens 6 Urine Color Yellow Urine Clarity Clear Urine pH 6.0 Ur Specific [place] 1.015 Urine Protein 15 H Urine Glucose (UA) 100 H Urine Ketones Negative Urine Occult Blood Negative Urine Nitrite Negative Urine Bilirubin Negative Urine Urobilinogen Normal Ur Leukocyte Esterase Negative Urine RBC 0 SEEN Urine WBC 0 SEEN Ur Squamous Epith Cells 0-5 SEEN Urine Bacteria 0 SEEN Urine Mucus 0 SEEN Radiography Diagnostic Testing: Clinical Impression(s) from Imaging Studies Brain CT 06/23/23 14:09 IMPRESSION: Chronic involutional changes of the brain. Stable examination. Electronically Signed: Vj Fisher MD at 14:57 EST , EKG Initial EKG: Attestation: I personally reviewed and interpreted this EKG as follows: Comments: Sinus rhythm with a rate of 78 bpm with no acute ST segment changes Discharge Plan Dx/Rx/DC Orders Clinical Impression: Dizziness, Hx of cerebral palsy, Generalized weakness Disposition Disposition: Acute Care Hospital [facility]
[2023-06-23] MEDS: 0.9% Normal Saline (1000mL) 1,000 ML 150 ML IV (14:20)
[2023-06-23 14:30] LABS: Absolute Neutrophil Count 6.7 X10^3/uL (2.0-7.7); Basophil# 0.08 X10^3/uL; Basophil% 0.9 % (0-1); Eosinophil# 0.21 X10^3/uL; Eosinophils% 2.3 % (0-5); Hematocrit 37.3 % (40-54); Hemoglobin 12.3 g/dL (13.0-16.5); Lymphocyte % 16.1 % (19-41); Mean Corpuscular Hgb 32.3 pg (27.0-32.0); Mean Corpuscular Volume 97.9 fL (80-94); Mean Platelet Vol. 9.9 fl (6.2-12.0); Monocyte% 8.6 % (0-10); NRBC Flagged by Analyzer 0 % (0-5); Neutrophil # 6.65 X10^3/uL (2.7-7.7); Neutrophil % 71.2 % (47-70); Platelet Count 277 K/mm3 (150-450); RBC Distribution Width CV 13.2 % (11.6-14.6); RBC Distribution Width SD 46.9 fl (35.1-43.9); Red Blood Count 3.81 M/mm3 (4.6-6.2); White Blood Count 9.3 K/mm3 (4.4-11.0)
[2023-06-23 14:49] LABS: Anion Gap 3 (5-15); BUN 12 mg/dL (7-18); BUN/Creat Ratio 9.5 RATIO (10-20); Calcium,Total 8.4 mg/dL (8.5-10.1); Chloride 109 mmol/L (98-107); Creatinine, Serum 1.26 mg/dL (0.70-1.30); EST Glomerular Filtration Rate 60 mL/min (>60); Est Glom Filt Rate - Afr Amer 72 mL/min (>60); Estimated Creatinine Clearance 45.42 ml/min; Glucose 108 mg/dL (74-106); Potassium 3.8 mmol/L (3.5-5.1); Sodium Level 139 mmol/L (136-145); Troponin-I HS 6 pg/mL (3.0-78.0)
[2023-06-23 15:27] LABS: Bacteria 0 SEEN /hpf (None Seen); Mucous, Urine 0 SEEN /hpf (<or=2+); Red Blood Cells-Urine 0 SEEN /hpf (0-5); White Blood Cells 0 SEEN /hpf (0-5)
[2023-06-23 15:37] VITALS: BP 125/80; BP 130/80; BP 136/74; PULSE 74; PULSE 77; PULSE 80
[2023-06-23 15:56] LABS: Color, Urine Yellow (Yellow); Glucose, Dipstick 100 mg/dl (Normal); Ketone-Dipstick Negative (Negative); Leukocyte Esterase-Dipstick Negative /ul (Negative); Nitrite-Dipstick Negative (Negative); Occult Blood-Urine Negative /ul (Negative); Protein-Dipstick 15 mg/dl (Negative); Specific Gravity, Urine 1.015 (1.002-1.030); Urine Bilirubin Dipstick Negative (Negative); Urine Clarity Clear (Clear); Urine Urobilinogen Normal (Normal)
[2023-06-23 16:27] VITALS: BP 128/78; PULSE 74; RESP 15; O2SAT 94
[2023-06-23 16:33] LABS: Squamous Epithelial Cells - UA 0-5 SEEN /hpf (0-5)
--- NOTE | 2023-06-23 16:34 | NURSING ---
MED SURG NEELS DIZZINESS, DISEQUILIBRIUM
[2023-06-23] MEDS: Meclizine HCl 25 MG Tablet PO (16:36)
--- NOTE | 2023-06-23 16:36 | MRI_ITS ---
STUDY: MRI BRAIN WITHOUT CONTRAST REASON FOR EXAM: Male, 73 years old. dizziness, dissequilibrium TECHNIQUE: Standardized multiplanar fat and water weighted pulse sequences were obtained. COMPARISON: CT of the brain June 23, 2023 FINDINGS: Mild atrophy and minor periventricular white matter ischemic changes. 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 Normal thalami. There is no extra-axial fluid accumulation. Normal flow voids within the major intracranial circulation suggesting patency by spin echo criteria. Normal sella turcica, pituitary gland, infundibular stalk, optic chiasm and hypothalamus. Normal tectal plate and pineal gland. Normal midbrain, derek and medulla. Normal cerebellum. Normal basal cisterns. Normal bilateral temporal bones. Normal bilateral internal auditory canals. No demonstrated orbital abnormality, within the constraints of a routine brain study. Mild mucosal thickening of the bilateral maxillary and ethmoid sinuses. Status post left temporal craniotomy. Normal visualized soft tissue structures. Normal visualized upper cervical spine. MRI/Brain without Contrast IMPRESSION: Mild atrophy and minor periventricular white matter ischemic changes. 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 No evidence for acute infarct Electronically Signed: Jani Solorio MD at 19:12 EST ,
--- NOTE | 2023-06-23 17:15 | PCM.HP.STD ---
HPI - General General Date of Admission: 06/23/23 HPI Narrative J LUIS MADERA, is a 73 M who presents to the hospital with dizziness and difficulty ambulating with weakness in his knees. He denies any focal weakness. Physician was concerned for possible posterior stroke though his NIH is 0. He has had this happen before where he is normally he is able to sleep for a day and then it resolves. He has no nystagmus and does not have any dizziness with sitting upright but he does have dizziness with standing and family, who has left prior to my evaluation, told the ED physician that they cannot take him home given the amount assistance needed with ambulation. Orthostatic vital signs were obtained in the ER which were negative, and CT brain was unremarkable. He does have a chronic contracture of his right upper extremity secondary to cerebral palsy. He denies any numbness or tingling in any of his extremities or any change in his baseline neurological functioning. [facility]LY [facility], [facility] Medical History (Updated 06/23/23 @ 16:[address] Ethan Martinez, ) COPD with exacerbation DVT of proximal lower limb History of cerebral palsy History of seizures Post-nasal drip Suspected chronic obstructive pulmonary disease based on initial evaluation Home Medications carbamazepine 200 mg tablet 200 mg PO TID seizures 08/29/17 [History Last Taken 08/29/17 11:30] levetiracetam 500 mg tablet 500 mg PO BID seizures 08/29/17 [History Last Taken 08/29/17 11:30] albuterol sulfate 90 mcg/actuation aerosol inhaler 2 puff inhalation Q4H PRN PRN wheezing/shortness of breath ##1 09/01/17 [Rx Last Taken Unknown] budesonide-formoterol HFA 160 mcg-4.5 mcg/actuation aerosol inhaler 10.2 gm IH BID ##1 09/01/17 [Rx Last Taken Unknown] ipratropium bromide 42 mcg (0.06 %) nasal spray 2 spray NASAL TID ##1 09/01/17 [Rx Last Taken Unknown] prednisone 10 mg tablet 10 mg PO UD #30 tabs 09/01/17 [Rx Last Taken Unknown] doxycycline monohydrate 100 mg capsule 100 mg PO BID #20 caps 10/19/18 [Rx Last Taken Unknown] prednisone 20 mg tablet 60 mg (3 x 20 mg) PO DAILY #15 tabs 10/19/18 [Rx Last Taken Unknown] fluticasone 500 mcg-salmeterol 50 mcg/dose blistr powdr for inhalation 1 inh inhalation DAILY 06/23/23 [History Last Taken Unknown] levothyroxine 100 mcg tablet 100 mcg PO DAILY 06/23/23 [History Last Taken Unknown] Allergy/AdvReac Type Severity Reaction Status Date / Time No Known Allergies Allergy Verified 06/23/23 13:14 Family History (Updated 06/23/23 @ 17:[address] Raoul Oliver MD) Other Heart disease Surgical History (Updated 06/23/23 @ 17:[address] Raoul Oliver MD) History of tonsillectomy Social History Smoking Status: Former smoker second hand exposure: No alcohol intake: never substance use type: does not use caffeine: Yes Type: coffee Number of servings: 2 and tea what type of physical activity do you participate in: none ROS Constitutional Constitutional: Denies chills, fatigue, fever(s) or malaise Eyes Eyes: Denies blurry vision ENT HEENT: Denies headache(s) or nasal discharge Cardiovascular Cardiovascular: Denies chest pain, dyspnea on exertion or syncope Respiratory/Chest Respiratory/Chest: Denies cough, shortness of breath at rest or shortness of breath with exertion Gastrointestinal Gastrointestinal: Denies constipation, diarrhea, nausea or vomiting Genitourinary Genitourinary: Denies dysuria Neurologic Neurologic: Reports dizziness; Denies focal weakness, numbness, syncope or tremor(s) Psychiatric Psychiatric: Denies anxiety or depression Vital Signs Vital Signs Vital Signs: 06/23/23 13:14 06/23/23 15:37 06/23/23 16:27 Temperature 97.4 F L Temperature Source Oral Pulse Rate 82 74 Pulse Rate [Lying] 74 Pulse Rate [Sitting (for 1 minute prior to obtaining)] 77 Pulse Rate [Standing (for 1 minute prior to obtaining)] 80 Respiratory Rate 16 15 Blood Pressure 124/65 H 128/78 H Blood Pressure [Lying] 136/74 H Blood Pressure [Sitting (for 1 minute prior to obtaining)] 125/80 H Blood Pressure [Standing (for 1 minute prior to obtaining)] 130/80 H Blood Pressure Mean 84 94 Blood Pressure Mean [Lying] 94 Blood Pressure Mean [Sitting (for 1 minute prior to obtaining)] 95 Blood Pressure Mean [Standing (for 1 minute prior to obtaining)] 96 Pulse Ox 98 94 Oxygen Delivery Method Room Air Weight Weight: 204 lb 9.423 oz Body Mass Index (BMI) 34.0 Physical Exam Narrative General: Alert, Oriented x3, Cooperative, No apparent distress HEENT: Atraumatic, PERRLA, EOMI, Normocephalic, no nystagmus elicited either horizontal or vertical Oral: Moist Mucosa Neck: Supple, No JVD Lungs: Diminished, Normal air movement, No rhonchi, No wheeze, No rales Cardiovascular: Regular rate, Regular Rhythm, Normal S1, Normal S2, No murmurs Abdomen: Soft, Non Tender, Non-Distended, No Hepato-splenomegaly Extremities: No edema, Capillary Refill Less than 3 Seconds Skin: No rashes, No breakdown Musculoskeletal: No Tenderness to Palpation of Joints or Extremities Neurological: Cranial nerve and motor exam is at baseline, Sensory exam intact to light touch and pain Psych/Mental Status: Normal Affect, Appropriate Results Lab / Micro Data 06/23/23 14:20 06/23/23 14:20 Labs: Laboratory Results - last 24 hr 06/23/23 14:20: WBC 9.3, RBC 3.81 L, Hgb 12.3 L, Hct 37.3 L, MCV 97.9 H, MCH 32.3 H, MCHC 33.0, RDW Std Deviation 46.9 H, RDW Coeff of Julius 13.2, Plt Count 277, MPV 9.9, Immature Gran % (Auto) 0.900, Neut % (Auto) 71.2 H, Lymph % (Auto) 16.1 L, [place] % (Auto) 8.6, Eos % (Auto) 2.3, Baso % (Auto) 0.9, Absolute Neuts (auto) 6.7, Absolute Lymphs (auto) 1.50, Nucleated RBC % 0, Sodium 139, Potassium 3.8, Chloride 109 H, Carbon Dioxide 27.0, Anion Gap 3 L, BUN 12, Creatinine 1.26, Estim Creat Clear Calc 45.42, Est GFR (MDRD) Af Amer 72, Est GFR (MDRD) Non-Af 60, BUN/Creatinine Ratio 9.5 L, Glucose 108 H, Calcium 8.4 L, Troponin I High Sens 6 06/23/23 15:19: Urine Color Yellow, Urine Clarity Clear, Urine pH 6.0, Ur Specific [place] 1.015, Urine Protein 15 H, Urine Glucose (UA) 100 H, Urine Ketones Negative, Urine Occult Blood Negative, Urine Nitrite Negative, Urine Bilirubin Negative, Urine Urobilinogen Normal, Ur Leukocyte Esterase Negative, Urine RBC 0 SEEN, Urine WBC 0 SEEN, Ur Squamous Epith Cells 0-5 SEEN, Urine Bacteria 0 SEEN, Urine Mucus 0 SEEN Imagaing Radiology Impression Brain CT 06/23/23 14:09 IMPRESSION: Chronic involutional changes of the brain. Stable examination. Electronically Signed: Vj Fisher MD at 14:57 EST , Assessment & Plan Assessment/Plan (1) Dizziness: (2) Generalized weakness: PLAN: Plan 1. Generalized weakness and dizziness unclear etiology ? She says it has had this before but the history does appear to be vertiginous ? Will continue with meclizine ? We will obtain an MRI this evening if possible ? Will have him evaluated by PT/OT secondary to him feeling that his knees are weak, no signs of infection, no respiratory difficulty and UA is unremarkable, he is afebrile without a leukocytosis ? CT of the brain does show previous encephalomalacia that has remained unchanged ? This neurological history is complicated by the fact that he has cerebral palsy with a chronically contracted right upper extremity 2. COPD ? Not in exacerbation ? Continue with his home inhalers 3. Seizure disorder ? Stable ? Continue with Keppra 4. Hypothyroidism ? We will check a TSH as there is not 1 in our system ? Continue with Synthroid DVT: Heparin 75 minutes was spent on direct patient care, including documentation as well as chart review and collaboration with colleagues Charges/Coding Visit Charges Inpatient E&M: 12193 Init Hosp L3
[2023-06-23 20:06] VITALS: BMI 34.2
[2023-06-23 20:25] VITALS: BP 124/62; PULSE 95; RESP 18; TEMP 36.6; O2SAT 99
[2023-06-23 20:32] LABS: Thyroid Stim Hormone (TSH) 4.71 uIU/mL (0.358-3.74)
[2023-06-23] MEDS: levETIRAcetam 500 MG Tablet PO (20:37)
[2023-06-23] MEDS: Heparin Injection (Vial) 5,000 UNIT/ML VIAL 5000 UNIT SC (20:37)
[2023-06-23 20:48] VITALS: PULSE 90; RESP 14
[2023-06-23] MEDS: Albuterol 2.5 MG/3 ML VIAL.NEB. INHALATION (20:48)
[2023-06-23] MEDS: Menthol/Lanolin/Calamine/Znox 113 GM Tube 1 APPLIC TOPICAL (22:30)
[2023-06-23] MEDS: Nystatin Powder 15gm Bottle 1 APPLIC TOPICAL (22:30)
[2023-06-24] VITALS (7 sets, daily range): BP systolic 122–129; BP diastolic 62–68; PULSE 75–95; RESP 16–18; TEMP 36.5–36.8; O2SAT 96–100
--- NOTE | 2023-06-24 00:24 | NURSING ---
Emergency documentation 06/23/23 1900 to 06/24/23 0700.
[2023-06-24] MEDS: Levothyroxine 100 MCG Tablet PO (05:29)
[2023-06-24] MEDS: Budesonide Respules 0.5 MG/2 ML AMPUL.NEB. INHALATION ×2 (07:04→20:01)
[2023-06-24] MEDS: Albuterol 2.5 MG/3 ML VIAL.NEB. INHALATION ×3 (07:04→20:01)
[2023-06-24 07:14] LABS: Absolute Lymphocyte Count 1.39 X10^3/uL (0.83-4.51); Absolute Neutrophil Count 3.3 X10^3/uL (2.0-7.7); Basophil# 0.07 X10^3/uL; Basophil% 1.2 % (0-1); Eosinophils% 5.3 % (0-5); Hematocrit 35.1 % (40-54); Hemoglobin 11.4 g/dL (13.0-16.5); Lymphocyte # 1.39 X10^3/ul (0.83-4.51); Lymphocyte % 24.4 % (19-41); Mean Corp Hgb Conc 32.5 g/dL (32-36); Mean Corpuscular Hgb 32.2 pg (27.0-32.0); Mean Corpuscular Volume 99.2 fL (80-94); Monocyte# 0.65 X10^3/uL; Monocyte% 11.4 % (0-10); NRBC Flagged by Analyzer 0 % (0-5); Neutrophil # 3.25 X10^3/uL (2.7-7.7); Platelet Count 249 K/mm3 (150-450); RBC Distribution Width CV 13.1 % (11.6-14.6); Red Blood Count 3.54 M/mm3 (4.6-6.2); White Blood Count 5.7 K/mm3 (4.4-11.0)
--- NOTE | 2023-06-24 07:35 | PN.HOSP_ITS ---
Reason for Visit Reason for Visit: Diagnoses Dizziness and giddiness (06/23/23) Weakness (06/23/23) Objective Data Objective Data Vital Signs: Vital Signs Temp Pulse Resp BP Pulse Ox O2 Del Method 97.7 F L 75 18 124/68 H 100 Room Air 06/24/23 05:27 06/24/23 07:05 06/24/23 07:05 06/24/23 05:27 06/24/23 05:27 06/24/23 05:27 Oxygen Delivery Method Room Air Weight: 199 lb 8.293 oz Body Mass Index (BMI) 34.2 Intake & Output: Intake and Output for Last 24 Hours 06/22/23 06/23/23 06/24/23 23:59 23:59 23:59 Intake Total 1000 / 1000 200 / 200 Balance 1000 / 1000 200 / 200 Lab / Micro Data 06/24/23 06:47 06/24/23 06:47 Labs: Laboratory Results - last 24 hr 06/23/23 14:20: WBC 9.3, RBC 3.81 L, Hgb 12.3 L, Hct 37.3 L, MCV 97.9 H, MCH 32.3 H, MCHC 33.0, RDW Std Deviation 46.9 H, RDW Coeff of Julius 13.2, Plt Count 277, MPV 9.9, Immature Gran % (Auto) 0.900, Neut % (Auto) 71.2 H, Lymph % (Auto) 16.1 L, [place] % (Auto) 8.6, Eos % (Auto) 2.3, Baso % (Auto) 0.9, Absolute Neuts (auto) 6.7, Absolute Lymphs (auto) 1.50, Nucleated RBC % 0, Sodium 139, Potassium 3.8, Chloride 109 H, Carbon Dioxide 27.0, Anion Gap 3 L, BUN 12, Crea tinine 1.26, Estim Creat Clear Calc 45.42, Est GFR (MDRD) Af Amer 72, Est GFR (MDRD) Non-Af 60, BUN/Creatinine Ratio 9.5 L, Glucose 108 H, Calcium 8.4 L, Troponin I High Sens 6, TSH 4.71 H 06/23/23 15:19: Urine Color Yellow, Urine Clarity Clear, Urine pH 6.0, Ur Specific [place] 1.015, Urine Protein 15 H, Urine Glucose (UA) 100 H, Urine Ketones Negative, Urine Occult Blood Negative, Urine Nitrite Negative, Urine Bilirubin Negative, Urine Urobilinogen Normal, Ur Leukocyte Esterase Negative, Urine RBC 0 SEEN, Urine WBC 0 SEEN, Ur Squamous Epith Cells 0-5 SEEN, Urine Bacteria 0 SEEN, Urine Mucus 0 SEEN 06/24/23 06:47: WBC 5.7, RBC 3.54 L, Hgb 11.4 L, Hct 35.1 L, MCV 99.2 H, MCH 32.2 H, MCHC 32.5, RDW Std Deviation 48.0 H, RDW Coeff of Julius 13.1, Plt Count 249, MPV 10.0, Immature Gran % (Auto) 0.700, Neut % (Auto) 57.0, Lymph % (Auto) 24.4, [place] % (Auto) 11.4 H, Eos % (Auto) 5.3 H, Baso % (Auto) 1.2 H, Absolute Neuts (auto) 3.3, Absolute Lymphs (auto) 1.39, Nucleated RBC % 0 Radiography Diagnostic Testing: Radiology Impression Brain CT 06/23/23 14:09 IMPRESSION: Chronic involutional changes of the brain. Stable examination. Electronically Signed: Vj Fisher MD at 14:57 EST , Brain MRI 06/23/23 16:36 IMPRESSION: Mild atrophy and minor periventricular white matter ischemic changes. 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 No evidence for acute infarct Electronically Signed: Jani Solorio MD at 19:12 EST , Physical Exam Narrative Seen and examined. Patient has cerebral palsy and has right-sided weakness since childhood. He states while he is laying on the bed he does not feel dizzy lightheaded or vertigo but when he gets up if still has little bit symptoms. Patient can eat and drink and is independent for ADL himself Physical exam General: Alert, Oriented x3, Cooperative HEENT: Atraumatic, PERRLA, EOMI, Normocephalic Oral: No Gingival or Mucosal Lesions/ Ulcerations Neck: Supple, No JVD, Negative Carotid Bruits Lungs: Air entry diminished in bilateral lung bases. No crepitation/rhonchi Cardiovascular: Regular rate, Regular Rhythm, Normal S1, Normal S2, No murmurs Abdomen: Bowel Sounds Present, Soft, Non Tender, Non-Distended : No renal angle tenderness. No suprapubic tenderness. Extremities: No edema, Capillary Refill Less than 3 Seconds Skin: No rashes, No breakdown Musculoskeletal: Right-sided weakness, more so RUE with contracture. RLE 4/5. ROM intact on left upper and lower extremity. Neurological: Cranial nerves II-XII grossly intact, DTR 2+/4. Cerebral palsy with right-sided weakness and some language abnormality since LDH Psych/Mental Status: Flat affect. Assessment & Plan Assessment/Plan (1) Dizziness: (2) Generalized weakness: PLAN: Plan 73-year-old gentleman came to ED with dizziness that is started 1 day before admission. Gets worse with standing and vertigo Better with laying down. Similar episodes in the past and typically resolves 24 hours but not at this timeno fall or acute recent illness. 1. Generalized weakness and dizziness unclear etiology with history of cerebral palsy: [facility] [place] [facility] Etiology unclear but patient is asymptomatic while laying down on the breath. On meclizine. MRI brain reported large chronic left subdural effusion or cystic hygroma no evidence for acute infarct. 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 Acute stroke ruled out. Patient denies burning micturition or dysuria symptoms. Chronic right upper extremity contraction from CP. 2. COPD ? Not in exacerbation ? Continue with his home inhalers 3. Seizure disorder ? Continue with Keppra 4. Hypothyroidism: TSH 4.71 about upper limit. Free T4 ordered. Synthroid dose increased. DVT: Heparin Charges/Coding Visit Charges Inpatient E&M: 12274 Subs Hosp L2
[2023-06-24 07:40] LABS: Anion Gap 3 (5-15); BUN 10 mg/dL (7-18); Calcium,Total 8.3 mg/dL (8.5-10.1); Chloride 111 mmol/L (98-107); Creatinine, Serum 1.11 mg/dL (0.70-1.30); EST Glomerular Filtration Rate 69 mL/min (>60); Est Glom Filt Rate - Afr Amer 84 mL/min (>60); Estimated Creatinine Clearance 49.63 ml/min; Glucose 105 mg/dL (74-106); Potassium 3.8 mmol/L (3.5-5.1); Sodium Level 140 mmol/L (136-145)
[2023-06-24] MEDS: Heparin Injection (Vial) 5,000 UNIT/ML VIAL 5000 UNIT SC ×2 (10:10→21:35)
[2023-06-24] MEDS: Nystatin Powder 15gm Bottle 1 APPLIC TOPICAL ×2 (10:10→21:29)
[2023-06-24] MEDS: levETIRAcetam 500 MG Tablet PO ×2 (10:10→21:30)
[2023-06-24] MEDS: Menthol/Lanolin/Calamine/Znox 113 GM Tube 1 APPLIC TOPICAL ×2 (10:10→21:29)
[2023-06-24] MEDS: Flu Vacc QS2023-24(65YR UP)/PF 240 MCG/0.7 ML Syringe IM (10:11)
--- NOTE | 2023-06-24 17:25 | CASEMGMT ---
CONCHITA CM in to discuss SORENSEN form with patient. RN CM explained SORENSEN form, patient voiced understanding. Pt signed form and filed in chart. Pt provided with a copy of signed SORENSEN form. Patient had no further questions or concerns at this time.
--- NOTE | 2023-06-24 17:26 | CASEMGMT ---
Addendum entered by Mariah Acuna 06/24/23 17:44: Updated hospitalist on pt plan. Original Note: RN AMAURY into pt room, pt lying in bed in no distress. Pt states his dizziness is better today. He reports he lives with his mom and niece. Pt uses a cane at baseline. Noted therapy used a hemiwalker with him today. Pt states he would be agreeable to trying this at home. Rx on chart for this. Pt aware that should he dc tomorrow, he will need to obtain himself with rx. Pt agreeable to this. Pt denies any need for home therapy. Pt declines need for RN AMAURY to call anyone in his family to discuss dc plan. He states that he will notify them when they visit tonight. Green sheet on chart for hemiwalker.
[2023-06-24] MEDS: 0.9% Saline Lock 10 ML Syringe IV (21:29)
[2023-06-25 03:08] VITALS: BP 119/74; PULSE 82; RESP 18; TEMP 36.9; O2SAT 98
[2023-06-25] MEDS: Levothyroxine 125 MCG Tablet PO (05:32)
[2023-06-25 06:25] LABS: T4 Free Direct 0.82 ng/dL (0.76-1.46)
[2023-06-25 06:54] VITALS: PULSE 80; RESP 16
[2023-06-25] MEDS: Budesonide Respules 0.5 MG/2 ML AMPUL.NEB. INHALATION (06:54)
[2023-06-25] MEDS: Albuterol 2.5 MG/3 ML VIAL.NEB. INHALATION ×2 (06:54→13:23)
--- NOTE | 2023-06-25 10:00 | DCINST_ITS ---
Discharge Instructions Diet Discharge Diet: No restrictions Activity Discharge Activity: Return to Normal Activity, May Not Drive and Use Walker Weight Bearing Status: Weight bearing as tolerated Dressing / Incision Call your doctor if you observe: Fever of 101 or Higher, Coldness, Increased Pain, Numbness or Tingling, Change in Color, Inability to urinate, Inability to have a bowel movement, Shortness of breath, Dizziness, Fainting spells, Swelling in the ankles, Chest pain, Prolonged hiccupping, Increased palpitations (irregular heartbeat) and Calf discomfort Follow Up Care When: IN 2 WEEKS Test Results: Test results from this visit will be discussed in further detail at your follow- up appointment, if applicable. Discharge Plan Admission Admit Date/Time: 06/23/23 17:06 Attending Provider: Kike Malave Primary Care Provider: Efe Patel Consulting Providers: Raoul Oliver Instructions Additional Instructions / Restrictions: Advised outpatient PT and OT. Education given about slow and gradual change in position from supine to sitting and then standing to take pause for about 30 seconds to 1 minute. Discharge Orders/Prescriptions Prescriptions: New meclizine 25 mg Tablet 25 mg PO TID PRN PRN (Reason: Dizziness) Qty: 30 0RF Continued levetiracetam 500 MG tablet 500 mg PO BID Patient Comments: seizures carbamazepine 200 MG tablet 200 mg PO .COMPLEX Patient Comments: seizures Rx Instructions: 200 mg orally pt takes 1 tab in am and 2 tabs at hs; takes 1 tab every am and 2 tabs at bedtime albuterol sulfate 1 PUFF inhaler 2 puff INHALATION Q4H PRN PRN (Reason: wheezing/shortness of breath) Qty: 1 0RF levothyroxine 100 mcg tablet 100 mcg PO DAILY fluticasone propion-salmeterol 500-50 mcg/dose blister with device 1 inh INHALATION DAILY Referrals / Follow Up: Efe Patel MD [Primary Care Provider] - Within 1 Week Disposition Disposition (needs filled in before D/C Order can be placed): Home, Self Care
[2023-06-25] MEDS: Heparin Injection (Vial) 5,000 UNIT/ML VIAL 5000 UNIT SC (10:46)
[2023-06-25] MEDS: levETIRAcetam 500 MG Tablet PO (10:46)
[2023-06-25] MEDS: Nystatin Powder 15gm Bottle 1 APPLIC TOPICAL (10:46)
[2023-06-25] MEDS: Menthol/Lanolin/Calamine/Znox 113 GM Tube 1 APPLIC TOPICAL (10:48)
[2023-06-25 11:36] VITALS: BP 113/61; PULSE 78; RESP 16; TEMP 36.7; O2SAT 96
--- NOTE | 2023-06-25 12:23 | PCM.DC.SUM ---
Providers Date of Admission: 06/23/23 Date of Discharge: 06/25/23 Primary Care Physician: Dr. Efe Patel MD Reason For Visit: DIZZINESS Diagnosis Discharge Diagnosis (1) Dizziness: Status: Acute Code(s): R42 - Dizziness and giddiness (2) Generalized weakness: Status: Acute Code(s): R53.1 - Weakness Plan 73-year-old gentleman came to ED with dizziness that is started 1 day before admission. Gets worse with standing and vertigo Better with laying down. Similar episodes in the past and typically resolves 24 hours but not at this timeno fall or acute recent illness. 1. Generalized weakness and dizziness unclear etiology with history of cerebral palsy: [facility] Etiology unclear but patient is asymptomatic while laying down on the breath. On meclizine. MRI brain reported large chronic left subdural effusion or cystic hygroma no evidence for acute infarct. 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 Acute stroke ruled out. Patient denies burning micturition or dysuria symptoms. Chronic right upper extremity contraction from CP. 06/25: Orthostatic blood pressure does not show change in heart rate or blood pressure. Patient was educated about gradual change in position from supine to sitting and then standing. 2. COPD ? Not in exacerbation ? Continue with his home inhalers 3. Seizure disorder Patient is on carbamazepine and Keppra that might be giving dizziness. Follow-up with the PCP or neurologist. 4. Hypothyroidism: TSH 4.71 about upper limit. Free T4 is 0.82 on low normal therefore patient is discharged with increased dose of Synthroid 125 mcg daily. Prescription given. DVT: Heparin Discharge medication reconciliation done. Discharge follow-up instructions completed. Discharge process discussed with the patient and all questions were answered to patient's satisfaction. Follow with PCP in 1 to 2 weeks Total time spent, exact 35 minutes on discharge meds reconciliation, examination, coordination of care with nurses and ancillary staff, review of imaging and blood test and discussion with the patient on follow-up instructions. Medications at Discharge Home Medications carbamazepine 200 mg tablet 200 mg PO .COMPLEX seizures 08/29/17 levetiracetam 500 mg tablet 500 mg PO BID seizures 08/29/17 albuterol sulfate 90 mcg/actuation aerosol inhaler 2 puff inhalation Q4H PRN PRN wheezing/shortness of breath ##1 09/01/17 fluticasone 500 mcg-salmeterol 50 mcg/dose blistr powdr for inhalation 1 inh inhalation DAILY 06/23/23 levothyroxine 125 mcg tablet 125 mcg PO DAILY@0600 30 days #30 tabs 06/25/23 meclizine 25 mg tablet 25 mg PO TID PRN PRN Dizziness #30 tabs 06/25/23 Physical Exam Narrative Seen and examined. Dizziness and lightheadedness and vertigo has resolved. Patient has cerebral palsy and has right-sided weakness since childhood. Patient can eat and drink and is independent for ADL himself Physical exam General: Alert, Oriented x3, Cooperative HEENT: Atraumatic, PERRLA, EOMI, Normocephalic Oral: No Gingival or Mucosal Lesions/ Ulcerations Neck: Supple, No JVD, Negative Carotid Bruits Lungs: Air entry diminished in bilateral lung bases. No crepitation/rhonchi Cardiovascular: Regular rate, Regular Rhythm, Normal S1, Normal S2, No murmurs Abdomen: Bowel Sounds Present, Soft, Non Tender, Non-Distended : No renal angle tenderness. No suprapubic tenderness. Extremities: No edema, Capillary Refill Less than 3 Seconds Skin: No rashes, No breakdown Musculoskeletal: Right-sided weakness, more so RUE with contracture. RLE 4/5. ROM intact on left upper and lower extremity. Neurological: Cranial nerves II-XII grossly intact, DTR 2+/4. Cerebral palsy with right-sided weakness and some language abnormality since LDH Psych/Mental Status: Flat affect. Weight / BMI Weight Weight: 199 lb 8.293 oz Body Mass Index (BMI) 34.2 ABG / Lab / Microbiology Data 06/24/23 06:47 06/24/23 06:47 Laboratory: Laboratory Results - last 24 hr 06/25/23 05:11: Free T4 0.82 D/C Instructions Discharge Diet: No restrictions Weight Bearing Status: Weight bearing as tolerated Call your doctor if you observe: Fever of 101 or Higher, Coldness, Increased Pain, Numbness or Tingling, Change in Color, Inability to urinate, Inability to have a bowel movement, Shortness of breath, Dizziness, Fainting spells, Swelling in the ankles, Chest pain, Prolonged hiccupping, Increased palpitations (irregular heartbeat) and Calf discomfort When: IN 2 WEEKS Meaningful Use Info Meaningful Use Diagnoses (Choose all that apply): None applicable Discharge Plan Admission Admit Date/Time: 06/23/23 17:06 Attending Provider: Kike Malave Primary Care Provider: Efe Patel Consulting Providers: Raoul Oliver Instructions Additional Instructions / Restrictions: Advised outpatient PT and OT. Education given about slow and gradual change in position from supine to sitting and then standing to take pause for about 30 seconds to 1 minute. Discharge Orders/Prescriptions Prescriptions: New meclizine 25 mg Tablet 25 mg PO TID PRN PRN (Reason: Dizziness) Qty: 30 0RF levothyroxine 125 mcg Tablet 125 mcg PO DAILY@0600 30 Days Qty: 30 2RF Rx Instructions: Repeat TSH and free T4 after 6 weeks Continued levetiracetam 500 MG tablet 500 mg PO BID Patient Comments: seizures carbamazepine 200 MG tablet 200 mg PO .COMPLEX Patient Comments: seizures Rx Instructions: 200 mg orally pt takes 1 tab in am and 2 tabs at hs; takes 1 tab every am and 2 tabs at bedtime albuterol sulfate 1 PUFF inhaler 2 puff INHALATION Q4H PRN PRN (Reason: wheezing/shortness of breath) Qty: 1 0RF fluticasone propion-salmeterol 500-50 mcg/dose blister with device 1 inh INHALATION DAILY Discontinued levothyroxine 100 mcg tablet 100 mcg PO DAILY Referrals / Follow Up: Efe Patel MD [Primary Care Provider] - Within 1 Week Disposition Disposition (needs filled in before D/C Order can be placed): Home, Self Care Charges/Coding Visit Charges Inpatient E&M: 61731 Disch Hosp >30min
[2023-06-25 13:23] VITALS: PULSE 78; RESP 18
== END 2023-06-25 14:26 | disposition home or self-care (01) ==
LOC: ED 16:35 → MS3 17:25
PROVIDERS: Admitting Provider Family Medicine; Emergency Provider Emergency Medicine; PCP Family Medicine; Visit Provider Internal Medicine
DX: R42 Dizziness and giddiness (principal); G80.9 Cerebral palsy, unspecified; J44.9 Chronic obstructive pulmonary disease, unspecified; G40.909 Epilepsy, unspecified, not intractable, without status epilepticus; R53.1 Weakness; Z87.891 Personal history of nicotine dependence; E03.9 Hypothyroidism, unspecified; Z79.899 Other long term (current) drug therapy; Z79.890 Hormone replacement therapy; Z23 Encounter for immunization
CPT/HCPCS: 36415; 70450; 70551; 80048; 81001; 84439; 84443; 84484; 85025; 93005; 94640; 96360; 96361; 96372; 97162; 97166; 97535; 99221; 99285; G0008; J7030; 90662; A4216; G0378

== ENCOUNTER 2024-03-25 15:00 | Outpatient (RCR) | payer MEDICARE, SELFPAY ==
--- NOTE | 2023-08-22 08:15 | HP.PTEVAL_ITS ---
Patient's Visit Information Visit Information Visit Information: J LUIS MADERA is a 73 year old M referred to Physical Therapy by Dr. fEe Patel MD with a diagnosis of Gait - CP. Date of Evaluation: 08/21/23 Physical Therapist: Erik Mejias DPT Visit Plan Frequency: 1x/Week Duration: 6 Weeks Plan: 1) Improve LE strength (RLE weaker than L) STS, step ups/downs 2) Balance act (begin with static and progress to dynamic) >Begin with feet close together, tandem stance, weight shifting, marching in place... 3) Gait training (for endurance, with SBQC and can trial SPC) (HEP: SLR, seated hamstring stretch, STS) Pt has CP that affects R side more than L, has poor foot clearance and uses cane to walk. Consider using gait belt, issues with turning, busy environments, and uneven surfaces. Subjective Subjective: Pt presents to PT as a transfer from PT in [place]. Pt reports having issues with his balance for the last year and began using a cane approx. 1 1/2 years ago. Goes to [place] [place], has fallen a few times in busy environments. Lives in a house with elderly mother, does not use cane at home, ahs 7 steps. Pt no longer drives. Pt feels he has major LOB every 4-6 weeks, feels he sometimes gets lightheaded and feels almost drunk which has been present during past couple falls. Pt reports going to neurologist to look into lightheadedness. Pt is retired, has hx of CP and seizure-like BRUNNER. Pt gets tired after 30-45 minutes, feels it in his legs and balance gets worse. Objective Objective: ROM: tightness in renata hamstrings, fused R ankle MMT: global RLE 3/5, LLE 4/5 GAIT: ER RLE with poor foot clearance d/t CP, uses adductors to advance RLE, uses SBQC in LUE, increased lateral sway especially with horizontal head turns OBSERVATIONS: contracted RUE into flex, able to open hand slightly to grasp onto railing STAIRS: DNT, test and practice to decrease pt use of UE for support 5xSTS: 24.51 TU.82 with SBQC, slow turning to sit and grabbed onto chair for support Pt has definite strength and ROM deficits in RLE, could be d/t hx of CP and weak ness/deconditioning. Pt has greatest hesitancy with turning and is a high fall risk d/t poor foot clearance, poor LE muscular endurance, and decreased gait speed. Balance/Special Test Scores Lower Extremity Functional Score: 39 Goals Goal 1:: Pt will achieve renata tandem stance for 10+ seconds with no LOB or UE support Goal Time Frame: 4-6 Weeks Goal 2:: Pt will achieve <20s on TUG with no AD to demonstrate improved dynamic balance and gait speed Goal Time Frame: 4-6 Weeks Goal 3:: Pt will perform 5xSTS in <15s to demonstrate improved LE strength Goal Time Frame: 4-6 Weeks Goal 4:: Pt will amb. 300+ ft with SBQC with no LOB Goal Time Frame: 4-6 Weeks Rehabilitation Potential Physical Therapy Diagnosis: Pt presents to PT with gait deviations and balance deficits. Pt would benefit from PT services to address dynamic balance, LE strength, and functional stamina with gait. Rehabilitation Potential: Fair Anticipated Interventions Patient/Client Instruction: Educate patient on: Plan of Care For the Purpose of:: To improve muscle performance and motor function, To improve ability to perform ADL's, To increase tolerance to activity/condition/position, To improve performance and independence with ADL's, To decrease level of supervision to perform tasks, To improve ability of physical actions for home/community/work/leisure, To improve gait and locomotor functions, To improve safety with gait, To assume or resume ADL's, To improve safety, To improve health and function, To foster healthy habits, To improve self management, To improve ability to perform tasks related to life management and To improve tolerance to ADL's Therapeutic Exercise to Include: Strength training, Balance training, Flexibilty training and Gait and locomotor training For the Purpose of:: To improve muscle performance and motor function, To improve ability to perform ADL's, To increase tolerance to activity/condition/position, To improve performance and independence with ADL's, To decrease level of supervision to perform tasks, To improve ability of physical actions for home/community/work/leisure, To improve gait and locomotor functions, To improve endurance, To improve balance, To improve safety with gait, To assume or resume ADL's, To improve safety, To improve health and function, To foster healthy habits, To improve ability to perform tasks related to life management and To improve tolerance to ADL's Manual Therapy Techniques to Include: Passive ROM For the Purpose of:: To increase ROM, To decrease soft tissue restriction and To increase flexibility/ROM Assistive Devices: Cane For the Purpose of:: To increase tolerance to activity/condition/position, To improve performance and independence with ADL's, To decrease level of supervision to perform tasks, To improve gait and locomotor functions and To improve tolerance to ADL's Text: Thank you for the opportunity to evaluate your patient. For Medicare and Medicare HMO plans, please review the plan of care and approve it. It will need to be FAXED BACK to us at [phone] for Medicare purposes. For Medicare only, by signing this I certify the plan of care. Please let me know if there are questions or concerns regarding this plan of care. Physician Signature: Date:
--- NOTE | 2023-10-02 13:16 | HP.PTREVAL ---
Re-Evaluation Intro: Dr. Efe Patel MD, It has been my pleasure to treat J LUIS MADERA over the last 3 visits for Gait - CP. Please see the progress note below for an update on the physical therapy plan of care! Subjective Subjective: Pt. reports overall doing well. He reports no pain today. He has been doing his exercises, but has not been very consistent. Objective Objective/Function: Pt. is doing okay. He still has limited foot clearance on the R side. It does clear, but barely. TU.7 sec with SPC, 40.09sec without cane. 5 STS test: 15.9 sec with 1 UE, 19.6 without use of UEs gait: pt. walks better with use of quad cane, but is able to walk without. CGA without use of cane for safety. Pt. was able to walk 255feet with SPC, in 3:49 minutes. Fatigue with limiting factor. I progressed some of his exercises today. I talked to him about being consistent with exercises and walking. Pt. consents. Plan Plan Plan: Cont. with PT x1 visit per week. Work on LE strengthening and narrow SHAYY positioning. Consider leg press next visit to focus on SL strength. Add in hip flexion to increase gait safety on R side. Balance/Gait/Functional tests Balance/Special Test Scores Lower Extremity Functional Score: 39 Goals Goals Goal 1:: Pt will achieve renata tandem stance for 10+ seconds with no LOB or UE support (3sec without use of UEs) Goal Time Frame: 4-6 Weeks Goal Progress: Progressing Goal 2:: Pt will achieve <20s on TUG with no AD to demonstrate improved dynamic balance and gait speed (34.7 sec with SPC, 40.09sec without cane.) Goal Time Frame: 4-6 Weeks Goal Progress: Progressing Goal 3:: Pt will perform 5xSTS in <15s to demonstrate improved LE strength (15.9 sec with 1 UE, 19.6 without use of UEs) Goal Time Frame: 4-6 Weeks Goal Progress: Progressing Goal 4:: Pt will amb. 300+ ft with SBQC with no LOB Goal Time Frame: 4-6 Weeks Goal Progress: Progressing Anticipated Interventions Anticipated Interventions Patient/Client Instruction: Educate patient on: Plan of Care For the Purpose of:: To improve muscle performance and motor function, To improve ability to perform ADL's, To increase tolerance to activity/condition/position, To improve performance and independence with ADL's, To decrease level of supervision to perform tasks, To improve ability of physical actions for home/community/work/leisure, To improve gait and locomotor functions, To improve safety with gait, To assume or resume ADL's, To improve safety, To improve health and function, To foster healthy habits, To improve self management, To improve ability to perform tasks related to life management and To improve tolerance to ADL's Therapeutic Exercise to Include: Strength training, Balance training, Flexibilty training and Gait and locomotor training For the Purpose of:: To improve muscle performance and motor function, To improve ability to perform ADL's, To increase tolerance to activity/condition/position, To improve performance and independence with ADL's, To decrease level of supervision to perform tasks, To improve ability of physical actions for home/community/work/leisure, To improve gait and locomotor functions, To improve endurance, To improve balance, To improve safety with gait, To assume or resume ADL's, To improve safety, To improve health and function, To foster healthy habits, To improve ability to perform tasks related to life management and To improve tolerance to ADL's Manual Therapy Techniques to Include: Passive ROM For the Purpose of:: To increase ROM, To decrease soft tissue restriction and To increase flexibility/ROM Assistive Devices: Cane For the Purpose of:: To increase tolerance to activity/condition/position, To improve performance and independence with ADL's, To decrease level of supervision to perform tasks, To improve gait and locomotor functions and To improve tolerance to ADL's Re-Evaluation Ending Re-evaluation ending: Please do not hesitate to contact me at [phone] by phone or if you have questions or concerns regarding this new plan of care! Sincerely, Erik Mejias DPT
--- NOTE | 2023-11-23 08:29 | HP.PTREVAL_ITS ---
Re-Evaluation Intro: Dr. Efe Patel MD, It has been my pleasure to treat J LUIS MADERA over the last 6 visits for Gait - CP. Please see the progress note below for an update on the physical therapy plan of care! Subjective Subjective: Pt. reports overall doing okay. He reports no falls. HEP compliant. He reports being 40% better overall. Objective Objective/Function: TU.1sec with quad cane, 47.3sec without cane. He was a little bit slower with his TUG times today, but reports feeling a little bit more unsteady today. 5 rep sit to stand- 13.1sec with use of UEs, 17.3 without Pt. has much more stability with use of cane. He ambulates with quad cane he has marked R hip ER and decreased ankle DF on R side. He tends to circumduct a bit to advance his R LE. STAIRS: Pt. is able to complete with step to pattern loading LLE only.\ gait: pt. 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 Pt. have just enough foot clearance on R side. I would like to continue to work with him on BLE strengthening, R hip strengthening and picking up is RLE better with gait to reduce risk for tripping. Plan Plan Plan: Cont. with PT x1 visit per week. Work on LE strengthening and narrow SHAYY positioning. Consider leg press next visit to focus on SL strength. Add in hip flexion to increase gait safety on R side. Add in VC for improved RLE foot clearance. Balance/Gait/Functional tests Balance/Special Test Scores Lower Extremity Functional Score: 39 TUG Test Time Seconds: 49.1 Tug Test: >30sec.=impaired mobility Goals Goals Goal 1:: Pt will achieve renata tandem stance for 10+ seconds with no LOB or UE support (3sec without use of UEs) Goal Time Frame: 4-6 Weeks Goal Progress: Progressing Goal 2:: Pt will achieve <20s on TUG with no AD to demonstrate improved dynamic balance and gait speed (34.7 sec with SPC, 40.09sec without cane.) Goal Time Frame: 4-6 Weeks Goal Progress: Progressing Goal 3:: Pt will perform 5xSTS in <15s to demonstrate improved LE strength Goal Time Frame: 4-6 Weeks Goal Progress: Progressing Goal 4:: Pt will amb. 300+ ft with SBQC with no LOB Goal Time Frame: 4-6 Weeks Goal Progress: Progressing Anticipated Interventions Anticipated Interventions Patient/Client Instruction: Educate patient on: Plan of Care For the Purpose of:: To improve muscle performance and motor function, To improve ability to perform ADL's, To increase tolerance to activity/condition/position, To improve performance and independence with ADL's, To decrease level of supervision to perform tasks, To improve ability of physical actions for home/community/work/leisure, To improve gait and locomotor functions, To improve safety with gait, To assume or resume ADL's, To improve safety, To improve health and function, To foster healthy habits, To improve self management, To improve ability to perform tasks related to life management and To improve tolerance to ADL's Therapeutic Exercise to Include: Strength training, Balance training, Flexibilty training and Gait and locomotor training For the Purpose of:: To improve muscle performance and motor function, To i mprove ability to perform ADL's, To increase tolerance to activity/condition/position, To improve performance and independence with ADL's, To decrease level of supervision to perform tasks, To improve ability of physical actions for home/community/work/leisure, To improve gait and locomotor functions, To improve endurance, To improve balance, To improve safety with gait, To assume or resume ADL's, To improve safety, To improve health and function, To foster healthy habits, To improve ability to perform tasks related to life management and To improve tolerance to ADL's Manual Therapy Techniques to Include: Passive ROM For the Purpose of:: To increase ROM, To decrease soft tissue restriction and To increase flexibility/ROM Assistive Devices: Cane For the Purpose of:: To increase tolerance to activity/condition/position, To improve performance and independence with ADL's, To decrease level of s upervision to perform tasks, To improve gait and locomotor functions and To improve tolerance to ADL's Re-Evaluation Ending Re-evaluation ending: Please do not hesitate to contact me at [phone] by phone or if you have questions or concerns regarding this new plan of care! Sincerely, Erik Mejias DPT
== END 2024-03-25 19:00 | disposition home or self-care (01) ==
LOC: PT 15:00
PROVIDERS: PCP Family Medicine; Referring Provider Family Medicine; Visit Provider Family Medicine
DX: R26.9 Unspecified abnormalities of gait and mobility (principal)
CPT/HCPCS: 97110; 97162; 97530

== ENCOUNTER 2024-03-28 09:47 | Observation (INO) | payer MEDICARE, SELFPAY ==
[2024-03-28] VITALS (11 sets, daily range): BP systolic 112–150; BP diastolic 55–91; PULSE 69–89; RESP 14–18; TEMP 35–36.7; O2SAT 95–99; BMI 34.9; BMI 32.8
--- NOTE | 2024-03-28 10:09 | EKG12_ITS ---
Test Reason : Blood Pressure : / mmHG Vent. Rate : 075 BPM Atrial Rate : 075 BPM P-R Int : 168 ms QRS Dur : 130 ms QT Int : 396 ms P-R-T Axes : 059 077 045 degrees QTc Int : 442 ms Normal sinus rhythm Right bundle branch block Abnormal ECG Confirmed by CATALINO CARDONA MD ([id number]), digital editor CYN MATHUR ([id number]) on 03/30/2024 8:09:42 AM Referred By: JUDITH Confirmed By:CATALINO CARDONA MD
[2024-03-28] MEDS: 0.9% Normal Saline (1000mL) 1,000 ML 1000 ML IV (10:23)
[2024-03-28 10:27] LABS: Absolute Neutrophil Count 4.7 X10^3/uL (2.0-7.7); Basophil# 0.05 X10^3/uL; Basophil% 0.7 % (0-1); Eosinophil# 0.13 X10^3/uL; Eosinophils% 1.9 % (0-5); Hematocrit 39.7 % (40-54); Hemoglobin 12.6 g/dL (13.0-16.5); Lymphocyte % 16.4 % (19-41); Mean Corp Hgb Conc 31.7 g/dL (32-36); Mean Corpuscular Hgb 31.7 pg (27.0-32.0); Mean Platelet Vol. 9.5 fl (6.2-12.0); Monocyte# 0.65 X10^3/uL; Monocyte% 9.7 % (0-10); NRBC Flagged by Analyzer 0 % (0-5); Neutrophil % 70.3 % (47-70); Platelet Count 250 K/mm3 (150-450); RBC Distribution Width CV 12.8 % (11.6-14.6); RBC Distribution Width SD 47.1 fl (35.1-43.9); Red Blood Count 3.97 M/mm3 (4.6-6.2); White Blood Count 6.7 K/mm3 (4.4-11.0)
--- NOTE | 2024-03-28 10:30 | RAD_ITS ---
STUDY: X-RAY CHEST REASON FOR EXAM: Male, 73 years old. COPD/weakness TECHNIQUE: COMPARISON: None. FINDINGS: The lungs are clear and expanded. There is no demonstrated pleural abnormality. Normal size heart. Normal mediastinum and nick. Normal visualized pulmonary arteries. Normal visualized aortic arch and descending thoracic aorta. There are diffuse degenerative changes of the visualized thoracic spine. Normal visualized ribs, clavicles, and shoulders. There is no demonstrated abnormality of the visualized soft tissue structures of the upper abdomen. RAD/Chest 1 View (Portable) IMPRESSION: No acute abnormality is seen. Electronically Signed: Vj Fisher MD at 11:01 EDT ,
[2024-03-28 10:39] LABS: Mucous, Urine 0 SEEN /hpf (<or=2+); Red Blood Cells-Urine 0 SEEN /hpf (0-5)
[2024-03-28 10:45] LABS: Color, Urine Yellow (Yellow); Glucose, Dipstick 50 mg/dl (Normal); Ketone-Dipstick Negative (Negative); Leukocyte Esterase-Dipstick Negative /ul (Negative); Nitrite-Dipstick Negative (Negative); Occult Blood-Urine Negative /ul (Negative); Protein-Dipstick 15 mg/dl (Negative); Urine Bilirubin Dipstick Negative (Negative); Urine Clarity Clear (Clear); Urine Urobilinogen Normal (Normal)
[2024-03-28 10:49] LABS: Anion Gap 4 (5-15); BUN 18 mg/dL (7-18); BUN/Creat Ratio 13.8 RATIO (10-20); Calcium,Total 9.3 mg/dL (8.5-10.1); Chloride 108 mmol/L (98-107); EST Glomerular Filtration Rate 57 mL/min (>60); Est Glom Filt Rate - Afr Amer 69 mL/min (>60); Estimated Creatinine Clearance 51.97 ml/min; Glucose 124 mg/dL (74-106); Potassium 4.2 mmol/L (3.5-5.1); Sodium Level 139 mmol/L (136-145); Troponin-I HS 4 pg/mL (3.0-78.0)
[2024-03-28 10:53] LABS: Bacteria 1+ /hpf (None Seen); Squamous Epithelial Cells - UA 0-5 SEEN /hpf (0-5); White Blood Cells 0-5 SEEN /hpf (0-5)
[2024-03-28 11:10] LABS: Lactic Acid 1.8 mmol/L (0.4-1.9)
--- NOTE | 2024-03-28 12:04 | EX.ED.DYSGE1 ---
HPI History of Present Illness Chief Complaint: Weakness Narrative Narrative: Chief complaint and HPI: Weakness. 73-year-old male with history of cerebral palsy presents for evaluation of weakness. Patient states that he lives at home with his elderly mother as well as his high functioning niece who has MRDD. He states for the past 2 to 3 days he has had increased weakness and is unable to ambulate out of bed. Patient states he usually gets around with a 4-prong walker. Patient denies any fever, chills, URI symptoms, chest pain, shortness of breath, abdominal pain, nausea, vomiting, dysuria, diarrhea, bloody bowel movements. He states he just feels generally weak. Denies any numbness or tingling or focal deficit. He states he has had decreased p.o. intake secondary to little appetite as well as inability to ambulate. Denies any falls or trauma. Review of systems: See HPI Medications: As listed on the chart Allergies: As listed on the chart PFSH: Per chart Vital signs: As listed on the chart. Reviewed. Physical exam: Gen: A&O x3, NAD, smells of urine Head: Normocephalic, atraumatic Eyes: No sclera icterus, conjunctiva clear, PERRL, EOMI ENT: Dry mucous membranes Neck: Trachea midline, No JVD CV: RRR, no murmurs, no peripheral edema Resp: Lungs CTA BL, no w/r/c GI: Abd soft, non-distended, non-tender, no r/r/g : Circumcised male, normal external genitalia, no signs of rash or infection other than mild yeast in the bilateral groin Musc: Moves all extremities, chronic right upper extremity contracture, no deformity Skin: Warm, dry Neuro: Alert, oriented, grossly intact, sensation intact Psych: Cooperative, appropriate mood and affect EKG: Interpreted by me/EM physician: EKG shows heart rate of 75. Normal sinus rhythm. Patient does have a new right bundle branch block that was not seen on previous EKG in June 2023. Patient currently denying any chest pain or shortness of breath. Diagnostic: Interpreted by me/EM physician: Without pneumonia, effusions, pneumothorax. This was compared to previous chest x-ray. [facility] Medical History (Updated 07/03/23 @ 00:01 by Background Daemon) Generalized weakness Hx of cerebral palsy Post-nasal drip COPD with exacerbation Suspected chronic obstructive pulmonary disease based on initial evaluation DVT of proximal lower limb History of seizures History of cerebral palsy Home Medications ?Medication ?Instructions ?Recorded ?Last Taken ?Type carbamazepine 200 mg tablet 200 mg PO TID seizures 08/29/17 03/27/24 History levetiracetam 500 mg tablet 500 mg PO BID seizures 08/29/17 03/27/24 History fluticasone 500 mcg-salmeterol 50 1 inh inhalation DAILY 06/23/23 03/27/24 History mcg/dose blistr powdr for inhalation albuterol sulfate 90 mcg/actuation 2 puff inhalation Q4H PRN 03/28/24 Unknown History aerosol inhaler wheezing/shortness of breath levothyroxine 100 mcg tablet 100 mcg PO DAILY 03/28/24 Unknown History (Levoxyl) Allergy/AdvReac Type Severity Reaction Status Date / Time No Known Allergies Allergy Verified 06/23/23 13:14 Family History (Updated 06/23/23 @ 17:[address] Raoul Oliver MD) Other Heart disease Surgical History History of tonsillectomy Social History Smoking Status: Former smoker second hand exposure: No alcohol intake: never substance use type: does not use caffeine: Yes Type: coffee Number of servings: 2 and tea what type of physical activity do you participate in: none EXAM Physical Exam Const Vital Signs: 03/28/24 09:50 03/28/24 09:50 03/28/24 09:57 Temperature 95 F L 95 F L Temperature Source Temporal Temporal Pulse Rate 84 83 Respiratory Rate 18 18 Respiratory Effort Normal Non-Labored Respiratory Pattern Normal Blood Pressure 129/63 H 129/63 H Blood Pressure Mean 85 85 Pulse Ox 99 97 Oxygen Delivery Method Room Air Room Air 03/28/24 10:57 03/28/24 11:00 03/28/24 11:50 Temperature 97.6 F L 97.6 F L Temperature Source Temporal Temporal Pulse Rate 70 69 71 Respiratory Rate 18 18 18 Respiratory Effort Respiratory Pattern Blood Pressure 120/81 H 120/76 150/91 H Blood Pressure Mean 94 90 110 Pulse Ox 99 98 98 Oxygen Delivery Method Room Air Room Air Room Air MDM MDM MDM Narrative Medical decision making narrative: 73-year-old male with history of cerebral palsy presents for evaluation of generalized weakness. Differential diagnosis includes but is not limited to electrolyte abnormality, UTI, ANTONIO/dehydration, infectious etiology such as pneumonia, ACS. Vitals are stable other than some mild hypertension. He appears dry on physical exam and NS bolus ordered. Laboratory workup and chest x-ray ordered. EKG reviewed. Chest x-ray reviewed. See above. CBC without leukocytosis. Patient has baseline anemia. BMP without ANTONIO or electrolyte abnormality. Troponin unremarkable. UA negative for UTI. At this point in time, there is no clear etiology for patient's weakness. We did try to ambulate him with a walker in emergency department and patient was unable to ambulate. Patient would benefit from admission for observation for possible acute rehab placement versus direct rehab placement. Patient was updated on all his results and confirmed understanding of plan. He is agreement to this plan. Social work was consulted and patient was discussed. Patient will not be able to be directly admitted to an acute care rehab therefore will require admission. Patient was discussed with Dr. Burton with the hospitalist service. She excepted admission for observation. Impression: 1. Generalized weakness 2. History of cerebral palsy 3. Chronic anemia Lab Data Labs: Laboratory Results - last 24 hr 03/28/24 03/28/24 10:10 10:15 WBC 6.7 RBC 3.97 L Hgb 12.6 L Hct 39.7 L MCV 100.0 H MCH 31.7 MCHC 31.7 L RDW Std Deviation 47.1 H RDW Coeff of Julius 12.8 Plt Count 250 MPV 9.5 Immature Gran % (Auto) 1.000 H Neut % (Auto) 70.3 H Lymph % (Auto) 16.4 L [place] % (Auto) 9.7 Eos % (Auto) 1.9 Baso % (Auto) 0.7 Absolute Neuts (auto) 4.7 Absolute Lymphs (auto) 1.10 Nucleated RBC % 0 Sodium 139 Potassium 4.2 Chloride 108 H Carbon Dioxide 27.0 Anion Gap 4 L BUN 18 Creatinine 1.30 Estim Creat Clear Calc 51.97 Est GFR (MDRD) Af Amer 69 Est GFR (MDRD) Non-Af 57 L BUN/Creatinine Ratio 13.8 Glucose 124 H Lactic Acid 1.8 Calcium 9.3 Troponin I High Sens 4 Urine Color Yellow Urine Clarity Clear Urine pH 6.0 Ur Specific [place] 1.020 Urine Protein 15 H Urine Glucose (UA) 50 H Urine Ketones Negative Urine Occult Blood Negative Urine Nitrite Negative Urine Bilirubin Negative Urine Urobilinogen Normal Ur Leukocyte Esterase Negative Urine RBC 0 SEEN Urine WBC 0-5 SEEN Ur Squamous Epith Cells 0-5 SEEN Urine Bacteria 1+ Urine Mucus 0 SEEN Radiography Diagnostic Testing: Clinical Impression(s) from Imaging Studies Chest X-Ray 03/28/24 10:30 IMPRESSION: No acute abnormality is seen. Electronically Signed: Vj Fisher MD at 11:01 EDT , Discharge Plan Triage Chief Complaint: Weakness ED Provider: Pablo Bill Dx/Rx/DC Orders Primary Care Provider: Efe Patel
--- NOTE | 2024-03-28 13:30 | CM.ED ---
Social Work Consult received by ED physician regarding ability to find placement for patient from the ED. Patient presents with weakness and inability to ambulate, with a limited support system at home. Reviewed chart and noted that if patient needs placement, this will require precert and would not be able to be done same day. This documentation writer did meet with patient, introducing to self and role. Patient reports to feel he has been able to manage at home, has equipment needed to function, and is active with several community agencies including [facility] [employer], [employer], and [employer]. Also uses [facility] for transportation. Patient gets grocery delivery, and no concerns about enough food or ability to purchase food. Denies safety concerns in the home. Patient reports would like to go home, but cannot currently walk. Home is tri level, so stairs to throughout the home. Patient does not feel safe to return home currently, due to weakness and inability to ambulate. Patient reports family called 911 because of current condition and nothing has changed or improved with functiaonl status since arriving to the ED. Patient reports agreement to short term placement, should patient not regain strength in the next day or two. Explored safety at home. Noted patient's mother is 93 as per patient report and there is a niece in the home with some level of developmental disability. Patient also mentioned during SW visits that patient and mother help each other out. Patient reports home is safe, that patient's mother is okay at home and the niece is there to help. The niece does not go to any type of workshop and is able to help out. Again, patient denies safety concerns. Handoff to Acute floor staff, as per conversation with ED provider and then with patient, there does not seem to be a support system in place to help patient at home with daily needs at this time. -LANA Back
--- NOTE | 2024-03-28 13:37 | HP.PCM.HOS_ITS ---
HPI - General General Date of Admission: 03/28/24 Date of Service: 03/28/24 Chief Complaint: Weakness and difficulty ambulating HPI Narrative J LUIS MADERA, is a 73 M with history of cerebral palsy, COPD, seizure disorder presented [facility] ED 03/28/2024 d/t difficulty with ambulating and weakness. Pt lives at home w/ elderly mother and niece and has had increasing weakness over the past 2 or so days and today he was unable to get out of bed due to weakness. Patient somewhat poor historian but it does seem that primary complaint is mostly weakness in lower extremities, sometimes he will feel some pain in his hips or lower abdomen but no pain in his back, not as weak in upper extremities. No recent seizures or seizure-like activity. Workup unrevealing given patient unable to ambulate or care for self hospitalist contacted for admission. Patient seen at bedside and reports that he has had progressive weakness over the past couple of years and has been using a cane for a while now but over the past couple of days had the increased weakness in bilateral lower extremities with no numbness, tingling, focal deficits. Has not been eating or drinking very well because he has not felt like it and is slightly dehydrated. Gets some pain in his hips but otherwise ROS otherwise negative [facility] Medical History (Updated 07/03/23 @ 00:01 by Colette Stanford) COPD with exacerbation DVT of proximal lower limb Generalized weakness History of cerebral palsy History of seizures Hx of cerebral palsy Post-nasal drip Suspected chronic obstructive pulmonary disease based on initial evaluation Home Medications ?Medication ?Instructions ?Recorded ?Last Taken ?Type carbamazepine 200 mg tablet 200 mg PO TID seizures 08/29/17 03/27/24 History levetiracetam 500 mg tablet 500 mg PO BID seizures 08/29/17 03/27/24 History fluticasone 500 mcg-salmeterol 50 1 inh inhalation DAILY 06/23/23 03/27/24 History mcg/dose blistr powdr for inhalation albuterol sulfate 90 mcg/actuation 2 puff inhalation Q4H PRN 03/28/24 Unknown History aerosol inhaler wheezing/shortness of breath levothyroxine 100 mcg tablet 100 mcg PO DAILY 03/28/24 Unknown History (Levoxyl) Allergy/AdvReac Type Severity Reaction Status Date / Time No Known Allergies Allergy Verified 06/23/23 13:14 Family History (Updated 06/23/23 @ 17:[address] Raoul Oliver MD) Other Heart disease Surgical History History of tonsillectomy Social History Smoking Status: Former smoker second hand exposure: No alcohol intake: never substance use type: does not use caffeine: Yes Type: coffee Number of servings: 2 and tea what type of physical activity do you participate in: none ROS ROS Narrative General: Denies fever/chills HENT: Denies headache, denies stuffy nose, denies sore throat EYES: Denies changes in vision Resp: Denies cough, denies shortness of breath Cardiac: Denies chest pain GI: Maybe will get some intermittent lower abdominal discomfort but patient cannot describe this any further, denies changes in bowel, denies nausea/vomiting : Denies changes in urination Extremity: Denies swelling MSK: Weakness more so bilateral lower extremities and upper Neuro: Denies any numbness/tingling Heme: Denies any bleeding or bruising Skin: Denies rashes Psychiatric: No complaints voiced Vital Signs Vital Signs Vital Signs: 03/28/24 09:50 03/28/24 09:50 03/28/24 09:57 Temperature 95 F L 95 F L Temperature Source Temporal Temporal Pulse Rate 84 83 Respiratory Rate 18 18 Respiratory Effort Normal Non-Labored Respiratory Pattern Normal Blood Pressure 129/63 H 129/63 H Blood Pressure Mean 85 85 Pulse Ox 99 97 Oxygen Delivery Method Room Air Room Air 03/28/24 10:57 03/28/24 11:00 03/28/24 11:50 Temperature 97.6 F L 97.6 F L Temperature Source Temporal Temporal Pulse Rate 70 69 71 Respiratory Rate 18 18 18 Respiratory Effort Respiratory Pattern Blood Pressure 120/81 H 120/76 150/91 H Blood Pressure Mean 94 90 110 Pulse Ox 99 98 98 Oxygen Delivery Method Room Air Room Air Room Air 03/28/24 13:00 Temperature Temperature Source Pulse Rate 82 Respiratory Rate 18 Respiratory Effort Respiratory Pattern Blood Pressure 148/80 H Blood Pressure Mean 102 Pulse Ox 97 Oxygen Delivery Method Room Air Weight Weight: 92.7 kg Body Mass Index (BMI) 34.9 Physical Exam Narrative General: Alert, oriented, no apparent distress HEENT: Atraumatic, normocephalic Eyes: Anicteric, normal conjunctiva, eyes with some strabismus Neck: Supple Respiratory: Clear to auscultation bilaterally, normal respiratory effort Cardiovascular: Regular rate and rhythm GI: Soft, nontender, nondistended Extremities: 1+ right lower extremity edema, trace left lower extremity edema Musculoskeletal: Appears to have chronic right upper extremity contracture Neuro: No overt focal neurological deficits aside from right upper extremity contracture Skin: No rashes appreciated Psych: Cooperative Results Lab / Micro Data 03/28/24 10:15 03/28/24 10:15 Labs: Laboratory Results - last 24 hr 03/28/24 10:10: Lactic Acid 1.8, Urine Color Yellow, Urine Clarity Clear, Urine pH 6.0, Ur Specific [place] 1.020, Urine Protein 15 H, Urine Glucose (UA) 50 H, Urine Ketones Negative, Urine Occult Blood Negative, Urine Nitrite Negative, Urine Bilirubin Negative, Urine Urobilinogen Normal, Ur Leukocyte Esterase Negative, Urine RBC 0 SEEN, Urine WBC 0-5 SEEN, Ur Squamous Epith Cells 0-5 SEEN, Urine Bacteria 1+, Urine Mucus 0 SEEN 03/28/24 10:15: WBC 6.7, RBC 3.97 L, Hgb 12.6 L, Hct 39.7 L, MCV 100.0 H, MCH 31.7, MCHC 31.7 L, RDW Std Deviation 47.1 H, RDW Coeff of Julius 12.8, Plt Count 250, MPV 9.5, Immature Gran % (Auto) 1.000 H, Neut % (Auto) 70.3 H, Lymph % (Auto) 16.4 L, [place] % (Auto) 9.7, Eos % (Auto) 1.9, Baso % (Auto) 0.7, Absolute Neuts (auto) 4.7, Absolute Lymphs (auto) 1.10, Nucleated RBC % 0, Sodium 139, Potassium 4.2, Chloride 108 H, Carbon Dioxide 27.0, Anion Gap 4 L, BUN 18, Creatinine 1.30, Estim Creat Clear Calc 51.97, Est GFR (MDRD) Af Amer 69, Est GFR (MDRD) Non-Af 57 L, BUN/Creatinine Ratio 13.8, Glucose 124 H, Calcium 9.3, Troponin I High Sens 4 Micro: Microbiology 03/28/24 10:10 Mucosa - Nose SARS-CoV-2, Influenza & RSV (PCR) - Final Imaging Radiology Impression Chest X-Ray 03/28/24 10:30 IMPRESSION: No acute abnormality is seen. Electronically Signed: Vj Fisher MD at 11:01 EDT , Assessment & Plan Assessment/Plan (1) Generalized weakness: PLAN: Plan # Generalized weakness -Exam nonfocal -Vitally stable -Lab workup thus far unremarkable -Will check mag, Phos, TSH, liver panel -No signs or symptoms of infection -This may be progression of chronic debility -Patient with slightly dry mucous membranes though labs are stable, will give gentle IV fluids and encourage p.o. -PT/OT -Case management/social work input appreciated # Chronic seizure disorder -Denies any recent seizure activity -Continue home Keppra and Tegretol # COPD -No current respiratory complaints or problems noted -Continue inhalers #Hypothyroidism -Continue Synthroid -Will check TSH # History of cerebral palsy -Noted -PT/OT -Supportive care #DVT ppx: Lovenox subcu Melissa Burton MD Charges/Coding Visit Charges Inpatient E&M: 62349 Init Hosp L1
--- NOTE | 2024-03-28 14:00 | CASEMGMT ---
Care Management - Initial Assessment Face to Face with patient for initial transition planning/care coordination assessment.? This senior grant writer introduced self and role at [facility]. Patient lying in bed, alert and oriented though slightly forgetful as could not remember the name of his niece who lives in the home. Patient at times took time to respond and could ramble. Patient cooperative and willing to participate in assessment; able to answer all questions appropriately.? Care providers, pharmacy, and demographics verified. Admitting Diagnosis: Weakness, difficulty ambulating Other diagnosis history: Per H&P, Chronic seizure disorder, history of Cerebral Palsy, COPD, Hx of DVT PCP: Dr. Patel Specialists: None reported Preferred Pharmacy: [facility] Insurance: [employer] (recently switched to this from [employer]) Prescription Benefit:? Yes, patient thinks through [employer] Living Will/HPOA: None in place, reports has been thinking about this though. LNOK: 93 year old mother Batsheva Telles. Patient has never been , no children. Has a niece living in the home, but cannot remember her name. Nephew Eric Godfrey is local, . Living Arrangements: Lives in his mother's home for about 7 years now. Patient's niece, who is reported to have mild developmental disability, lives in the home and helps out. Patient reports we help each other referring to patient's relationship with his mother. Reports to feel safe in the home. Transportation: [facility] or [facility] Van DME: Quad cane, shower chair, grab bars in bathroom and at stairs. Has access to a FWW and a rollator (patient's mother's but patient uses sometimes). Denies any O2, nebulizer, BP, pulse ox, or glucometer. HHC/Outpatient PT: Current with [facility]. No HHC reported. SNF: Hx of [facility]. Hx of [facility], prior to living with his mother. Community Resources: [facility] for Care Coordination. Luz Luther [phone] - Goes to [facility] , gets [employer], 5 units weekly; has EMR necklace. ? Patient goals: Patient wishes to discharge home, but reports cannot walk right now, having episodes of weakness every 6-8 weeks. Patient reports limited support at home to help with lower body care and ambulation, so if continues to be weak would be agreeable to go somewhere for further rehab. Patient is hopeful in a day or two will be back to baseline. Patient reports has been thinking about assisted living, as knows current living situation is short lived with patient's mother also aging and in her 90s. Care Management team to follow for discharge planning. Anticipate SNF, though will await PT/OT evaluations as well. Interventions: Notified [facility] of patient's admission to observation status; Notified Nik that patient will not be at the day center on 03.29.24. Brenda at [facility] will reach out to patient next week to see about status and ability to return to the day program. Disposition Plan: Anticipate Short term SNF. -LANA Back
--- NOTE | 2024-03-28 14:25 | CASEMGMT ---
Discharge Planning A list of SNF providers including quality and resource use data and consistent with the patient's preferred geographic region, medical needs, and insurance network was created in [facility] Guide.? This list was provided to the SW. Keila Alvarado Discharge Planning Asst.
--- NOTE | 2024-03-28 14:27 | VDLE_ITS ---
Reason For Study: BLE Swelling RIGHT LEFT GSV is normal. GSV is normal. CFV is compressible, spontaneous, competent CFV is compressible, spontaneous, competent, and demonstrates pulsatile venous flow. and demonstrates pulsatile venous flow. FV is compressible, spontaneous, competent FV is compressible, spontaneous, competent and demonstrates pulsatile venous flow. and demonstrates pulsatile venous flow. POP V is compressible, spontaneous, competent POP V is compressible, spontaneous, competent and demonstrates pulsatile venous flow. and demonstrates pulsatile venous flow. T/P Trunk is compressible. T/P Trunk is compressible. PTV is compressible. PTV is compressible. RT PerV is compressible. LT PerV is compressible. Procedure This is a venous duplex using B-mode, color flow and spectral Doppler. Exam performed portable in patient room. The exam was diagnostic. A preliminary report was called and/or faxed to M/S 3 cash grain farmer. VL/Venous Duplex US - Bright Extrem Interpretation Summary Deep veins of the lower extremities are bilaterally patent and compressible seg mentally. There is no evidence of deep vein thrombosis on either side. Valvular competence appears in tact within the proximal deep venous systems bilaterally. The great saphenous veins appear bila terally patent and compressible segmentally. Pulsatile flow is noted in the deep venous systems bi laterally, which may be indicative of elevated central venous pressure (i.e. congestive heart failur e, pulmonary hypertension, etc.). Clinical correlation is advised. Ordering Physician: Melissa Burton Referring Physician: MD Jorge Efe Performed By: Luke Stephens RVT
[2024-03-28] MEDS: 0.9% Normal Saline (1000mL) 1,000 ML 50 ML IV (15:14)
[2024-03-28] MEDS: carBAMazepine 200 MG Tablet PO ×2 (15:14→21:40)
--- NOTE | 2024-03-28 16:08 | CASEMGMT ---
Social Work SW received handoff from ED SW that pt will need placement. SW met with pt and introduced self and role of SW. Pt confirms need for SNF and states he thinks it may be permanent placement. A list of SNF providers including quality and resource use data and consistent with the patient?s preferred geographic region, medical needs, and insurance network were provided from the CarePort Guide. SW assisted pt in reviewing list. Pt preferred provider is [facility]. Referral to be made. JEAN PIERRE Beltran
[2024-03-28 16:09] LABS: Vitamin B12 361 pg/mL (211-911); Vitamin D,25 Hydroxy 17.4 ng/mL
[2024-03-28 16:14] LABS: Ferritin 286 ng/mL (26-388); Iron 88 ug/dL (65-175); Iron Binding Capacity,Total 276 ug/dL (250-450); PERCENT IRON SATURATION 31.9 % (15.0-55.0)
[2024-03-28] MEDS: Budesonide Respules 0.5 MG/2 ML AMPUL.NEB. INHALATION (19:32)
[2024-03-28] MEDS: Albuterol 2.5 MG/3 ML VIAL.NEB. INHALATION (19:33)
[2024-03-28] MEDS: levETIRAcetam 500 MG Tablet PO (21:40)
[2024-03-29 05:30] VITALS: BP 106/61; PULSE 79; RESP 16; TEMP 36.7; O2SAT 97
[2024-03-29] MEDS: carBAMazepine 200 MG Tablet PO ×3 (05:46→20:31)
[2024-03-29] MEDS: Levothyroxine 100 MCG Tablet PO (05:46)
[2024-03-29 05:47] LABS: Basophil# 0.06 X10^3/uL; Basophil% 0.8 % (0-1); Eosinophil# 0.16 X10^3/uL; Eosinophils% 2.1 % (0-5); Hematocrit 36.4 % (40-54); Hemoglobin 11.4 g/dL (13.0-16.5); Mean Corp Hgb Conc 31.3 g/dL (32-36); Mean Corpuscular Hgb 31.2 pg (27.0-32.0); Mean Corpuscular Volume 99.7 fL (80-94); Mean Platelet Vol. 9.7 fl (6.2-12.0); Monocyte# 0.72 X10^3/uL; Monocyte% 9.6 % (0-10); NRBC Flagged by Analyzer 0 % (0-5); Neutrophil % 66.6 % (47-70); Platelet Count 232 K/mm3 (150-450); RBC Distribution Width CV 12.9 % (11.6-14.6); RBC Distribution Width SD 47.4 fl (35.1-43.9); Red Blood Count 3.65 M/mm3 (4.6-6.2); White Blood Count 7.5 K/mm3 (4.4-11.0)
[2024-03-29] MEDS: Acetaminophen 325 MG Tablet 650 MG PO (05:47)
[2024-03-29 06:17] LABS: AST(SGOT) 15 U/L (15-37); Alanine Aminotransfer ALT/SGPT 26 U/L (16-61); Albumin, Serum 2.7 g/dL (3.2-5.0); Alkaline Phosphatase 58 U/L (45-117); Anion Gap 5 (5-15); BUN 16 mg/dL (7-18); BUN/Creat Ratio 14.7 RATIO (10-20); Bilirubin, Direct 0.13 mg/dL (0.00-0.30); Calcium,Total 8.3 mg/dL (8.5-10.1); Chloride 110 mmol/L (98-107); Creatinine, Serum 1.09 mg/dL (0.70-1.30); EST Glomerular Filtration Rate 70 mL/min (>60); Est Glom Filt Rate - Afr Amer 85 mL/min (>60); Estimated Creatinine Clearance 59.96 ml/min; Globulin 3.5 g/dL (2.2-4.2); Glucose 107 mg/dL (74-106); Phosphorus 3.1 mg/dL (2.5-4.9); Potassium 4.1 mmol/L (3.5-5.1); Protein, Total 6.2 g/dL (6.4-8.2); Sodium Level 139 mmol/L (136-145); Thyroid Stim Hormone (TSH) 0.169 uIU/mL (0.358-3.740)
[2024-03-29 06:52] VITALS: PULSE 85; RESP 20; O2SAT 96
[2024-03-29] MEDS: Budesonide Respules 0.5 MG/2 ML AMPUL.NEB. INHALATION ×2 (06:52→19:53)
[2024-03-29] MEDS: Albuterol 2.5 MG/3 ML VIAL.NEB. INHALATION ×2 (06:52→19:53)
--- NOTE | 2024-03-29 10:07 | CASEMGMT ---
Social Work Referral sent to [place] via [facility]. Will await determination of acceptance. JEAN PIERRE Beltran
[2024-03-29 10:11] VITALS: BP 103/57; PULSE 85; RESP 18; TEMP 37; O2SAT 94
[2024-03-29] MEDS: levETIRAcetam 500 MG Tablet PO ×2 (10:16→20:30)
[2024-03-29] MEDS: Enoxaparin 40 MG/0.4 ML Syringe SC (10:17)
[2024-03-29] MEDS: Senna/Docusate Sodium 1 Tablet 2 TABLET PO ×2 (12:08→20:33)
[2024-03-29] MEDS: Polyethylene Glycol 3350 17 GM PACKET PO (12:08)
--- NOTE | 2024-03-29 12:12 | CASEMGMT ---
Social Work Pt is requesting SNF placement. SW completed the PASRR in [facility] which is required for halfway placement. Due to dx of Cerebral Palsy and Seizure Disorder, pt will need assessed by the [place] Board of Developmental Disabilities (Level II evaluation) for SNF appropriateness. Pt will remain in the hospital until Department of DD clears pt for SNF placement. Referral pending at [facility]. JEAN PIERRE Beltran
[2024-03-29 14:42] VITALS: BP 119/60; PULSE 80; RESP 18; TEMP 36.6; O2SAT 98
--- NOTE | 2024-03-29 15:49 | CASEMGMT ---
Social Work [facility] is able to accept pt. Pt notified and made aware that he will need to be assessed by the department of DD prior to dischrage. Plan: [facility], pending Level II review by DD and insurance precert JEAN PIERRE Beltran
--- NOTE | 2024-03-29 16:42 | PCM.PN.HOSP ---
Reason for Visit Reason for Visit: Diagnoses Weakness (03/28/24) Objective Data Objective Data Vital Signs: Vital Signs Temp Pulse Resp BP Pulse Ox O2 Del Method 98 F 80 18 119/60 98 Room Air 03/29/24 14:42 03/29/24 14:42 03/29/24 14:42 03/29/24 14:42 03/29/24 14:42 03/29/24 14:43 Oxygen Delivery Method Room Air Weight: 191 lb 4.8 oz Body Mass Index (BMI) 32.8 Intake & Output: Intake and Output for Last 24 Hours 03/27/24 03/28/24 03/29/24 23:59 23:59 23:59 Intake Total 1840 / 1840 1000 / 1000 Output Total 375 / 375 825 / 825 Balance 1465 / 1465 175 / 175 Lab / Micro Data 03/29/24 05:29 03/29/24 05:29 Labs: Laboratory Results - last 24 hr 03/29/24 05:29: WBC 7.5, RBC 3.65 L, Hgb 11.4 L, Hct 36.4 L, MCV 99.7 H, MCH 31.2, MCHC 31.3 L, RDW Std Deviation 47.4 H, RDW Coeff of Julius 12.9, Plt Count 232, MPV 9.7, Immature Gran % (Auto) 0.900, Neut % (Auto) 66.6, Lymph % (Auto) 20.0, [place] % (Auto) 9.6, Eos % (Auto) 2.1, Baso % (Auto) 0.8, Absolute Neuts (auto) 5.0, Absolute Lymphs (auto) 1.50, Nucleated RBC % 0, Sodium 139, Potassium 4.1, Chloride 110 H, Carbon Dioxide 24.0, Anion Gap 5, BUN 16, Creatinine 1.09, Estim Creat Clear Calc 59.96, Est GFR (MDRD) Af Amer 85, Est GFR (MDRD) Non-Af 70, BUN/Creatinine Ratio 14.7, Glucose 107 H, Calcium 8.3 L, Phosphorus 3.1, Magnesium 2.0, Total Bilirubin 0.40, Direct Bilirubin 0.13, AST 15, ALT 26, Alkaline Phosphatase 58, Total Protein 6.2 L, Albumin 2.7 L, Globulin 3.5, TSH 0.169 L Micro: Microbiology 03/28/24 10:10 Mucosa - Nose SARS-CoV-2, Influenza & RSV (PCR) - Final Radiography Diagnostic Testing: Radiology Impression Venous Doppler Study 03/28/24 14:27 Interpretation Summary Deep veins of the lower extremities are bilaterally patent and compressible segmentally. There is no evidence of deep vein thrombosis on either side. Valvular competence appears intact within the proximal deep venous systems bilaterally. The great saphenous veins appear bilaterally patent and compressible segmentally. Pulsatile flow is noted in the deep venous systems bilaterally, which may be indicative of elevated central venous pressure (i.e. congestive heart failure, pulmonary hypertension, etc.). Clinical correlation is advised. Ordering Physician: Melissa Burton Referring Physician: MD Jorge Efe Performed By: Luke Stephens RVKwame Physical Exam Narrative Seen and examined. History of cerebral palsy. Steroids he can eat and takes care of himself but seems higher mental function is compromised. Has not moved bowel. Physical exam General: Awake. No acute complaint. HEENT: Atraumatic, PERRLA, EOMI, Normocephalic Oral: No Gingival or Mucosal Lesions/ Ulcerations Neck: Supple, No JVD, Negative Carotid Bruits Chest wall/Lungs: Air entry diminished in bilateral lung bases. No crepitation/rhonchi Cardiovascular: Regular rate, Regular Rhythm, Normal S1, Normal S2, No M/G/R Abdomen: Bowel Sounds Present, Soft, Non Tender, Non-Distended : No dysuria. No renal angle tenderness. No suprapubic tenderness. Extremities: Mild venous edema, Capillary Refill Less than 3 Seconds Skin: No rashes, No breakdown Musculoskeletal: No Tenderness to Palpation of Joints or Extremities. ROM restricted. Neurological: Cranial nerves II-XII grossly intact, DTR 2+/4. No acute focal neurological deficit. Psych/Mental Status: Normal Affect, Appropriate. Assessment & Plan Assessment/Plan (1) Generalized weakness: PLAN: Plan # Generalized weakness: Patient is being admitted [place]. Vitamin D 25-hydroxy level. B12 low normal. Serum magnesium phosphorus in normal limits. Iron studies in normal limit. Ferritin normal -PT/OT -Case management/social work input appreciated # Chronic seizure disorder -Denies any recent seizure activity -Continue home Keppra and Tegretol # COPD -No current respiratory complaints or problems noted -Continue inhalers #Hypothyroidism -Continue Synthroid TSH low 0.169. Free T4 ordered for tomorrow AM. # History of cerebral palsy -Noted -PT/OT -Supportive care #DVT ppx: Lovenox subcu Charges/Coding Visit Charges Inpatient E&M: 62558 Subs Hosp L2
[2024-03-29 17:49] LABS: Vitamin B12 281 pg/mL (211-911)
[2024-03-29] MEDS: Cyanocobalamin 500 MCG Tablet 1000 MCG PO (18:20)
[2024-03-29] MEDS: Ergocalciferol 1.25 MG (50, 000 UNIT) Capsule PO (18:20)
[2024-03-29 19:54] VITALS: PULSE 89; RESP 20
[2024-03-29 20:36] VITALS: BP 144/77; PULSE 91; RESP 16; TEMP 36.7; O2SAT 99
[2024-03-30] VITALS (7 sets, daily range): BP systolic 108–132; BP diastolic 48–76; PULSE 61–91; RESP 16–20; TEMP 36.6–36.7; O2SAT 95–98
[2024-03-30] MEDS: Levothyroxine 100 MCG Tablet PO (05:07)
[2024-03-30] MEDS: carBAMazepine 200 MG Tablet PO ×3 (05:07→23:04)
[2024-03-30] MEDS: Ondansetron 4 MG/2 ML Vial IV (06:45)
[2024-03-30] MEDS: 0.9% Saline Lock 10 ML Syringe IV ×2 (06:45→23:12)
[2024-03-30 06:56] LABS: T4 Free Direct 1.12 ng/dL (0.76-1.46)
[2024-03-30] MEDS: Albuterol 2.5 MG/3 ML VIAL.NEB. INHALATION ×3 (07:36→19:35)
[2024-03-30] MEDS: Budesonide Respules 0.5 MG/2 ML AMPUL.NEB. INHALATION ×2 (07:36→19:35)
[2024-03-30] MEDS: levETIRAcetam 500 MG Tablet PO ×2 (10:00→23:04)
[2024-03-30] MEDS: Cyanocobalamin 500 MCG Tablet 1000 MCG PO (10:00)
[2024-03-30] MEDS: Enoxaparin 40 MG/0.4 ML Syringe SC (10:00)
--- NOTE | 2024-03-30 13:28 | PN.HOSP_ITS ---
Reason for Visit Reason for Visit: Diagnoses Weakness (03/28/24) Objective Data Objective Data Vital Signs: Vital Signs Temp Pulse Resp BP Pulse Ox O2 Del Method 98 F 74 18 108/48 L 97 Room Air 03/30/24 09:46 03/30/24 09:46 03/30/24 09:46 03/30/24 09:46 03/30/24 09:46 03/30/24 09:48 Oxygen Delivery Method Room Air Weight: 191 lb 4.8 oz Body Mass Index (BMI) 32.8 Intake & Output: Intake and Output for Last 24 Hours 03/28/24 03/29/24 03/30/24 23:59 23:59 23:59 Intake Total 1840 / 1840 1000 / 1000 300 / 300 Output Total 375 / 375 1125 / 1125 800 / 800 Balance 1465 / 1465 -125 / -125 -500 / -500 Lab / Micro Data 03/29/24 05:29 03/29/24 05:29 Labs: Laboratory Results - last 24 hr 03/29/24 05:29: Vitamin B12 281 03/30/24 05:25: Free T4 1.12 Micro: Microbiology 03/28/24 10:10 Mucosa - Nose SARS-CoV-2, Influenza & RSV (PCR) - Final Physical Exam Narrative Seen and examined. Had 1 emesis in the attributes to his dinner yesterday. Had 2 large bowel movements yesterday. And 1 BM today in the morning. History of cerebral palsy. He can do basic functions of life including eating and going to bathroom/toilet but seems higher mental function is compromised. Physical exam General: Awake. No acute complaint. HEENT: Atraumatic, PERRLA, EOMI, Normocephalic Oral: No Gingival or Mucosal Lesions/ Ulcerations Neck: Supple, No JVD, Negative Carotid Bruits Chest wall/Lungs: Air entry diminished in bilateral lung bases. No crepitation/rhonchi Cardiovascular: Regular rate, Regular Rhythm, Normal S1, Normal S2, No M/G/R Abdomen: Bowel Sounds Present, Soft, Non Tender, Non-Distended : No dysuria. No renal angle tenderness. No suprapubic tenderness. Extremities: Mild venous edema, Capillary Refill Less than 3 Seconds Skin: No rashes, No breakdown Musculoskeletal: Chronic surgical scar of her right hand with muscle atrophy and contracture of wrist joint and fingers. No Tenderness to Palpation of Joints or Extremities. ROM restricted. Neurological: Cranial nerves II-XII grossly intact, DTR 2+/4. No acute focal neurological deficit. Psych/Mental Status: Flat affect Assessment & Plan Assessment/Plan (1) Generalized weakness: PLAN: Plan 73-year-old gentleman was admitted with generalized weakness, unable to ambulate from out of bed. He is only gets around with 4-prong walker. Denies other acute issues related to chest, GI, or chest pain or URI symptoms or fever or chills. # Generalized weakness: Patient is being admitted on MedSurg.. Vitamin D 25- hydroxy level. B12 low normal. Serum magnesium phosphorus in normal limits. Iron studies in normal limit. Ferritin normal -PT/OT -Case management/social work input appreciated 03/30: Patient had good large bowel movement yesterday and today. One-time emesis, clinically not significant. # Chronic seizure disorder -Denies any recent seizure activity -Continue home Keppra and Tegretol # COPD -No current respiratory complaints or problems noted -Continue inhalers #Hypothyroidism -Continue Synthroid TSH low 0.169. Free T4 ordered for tomorrow AM. # History of cerebral palsy -Noted -PT/OT -Supportive care #DVT ppx: Lovenox subcu Charges/Coding Visit Charges Inpatient E&M: 44171 Subs Hosp L2
[2024-03-30] MEDS: Senna/Docusate Sodium 1 Tablet 2 TABLET PO (23:04)
[2024-03-31] VITALS (7 sets, daily range): BP systolic 113–138; BP diastolic 62–77; PULSE 69–86; RESP 16–20; TEMP 36.3–36.8; O2SAT 94–100
[2024-03-31] MEDS: carBAMazepine 200 MG Tablet PO ×3 (06:35→20:24)
[2024-03-31] MEDS: Levothyroxine 100 MCG Tablet PO (06:35)
[2024-03-31] MEDS: Albuterol 2.5 MG/3 ML VIAL.NEB. INHALATION ×2 (07:05→19:55)
[2024-03-31] MEDS: Budesonide Respules 0.5 MG/2 ML AMPUL.NEB. INHALATION ×2 (07:05→19:55)
[2024-03-31] MEDS: Menthol/Lanolin/Calamine/Znox 113 GM Tube 1 APPLIC TOPICAL ×2 (09:54→20:24)
[2024-03-31] MEDS: levETIRAcetam 500 MG Tablet PO ×2 (09:55→20:24)
[2024-03-31] MEDS: Cyanocobalamin 500 MCG Tablet 1000 MCG PO (09:55)
[2024-03-31] MEDS: Senna/Docusate Sodium 1 Tablet 2 TABLET PO (09:56)
[2024-03-31] MEDS: Polyethylene Glycol 3350 17 GM PACKET PO (09:56)
[2024-03-31] MEDS: Enoxaparin 40 MG/0.4 ML Syringe SC (09:56)
--- NOTE | 2024-03-31 14:34 | PN.HOSP_ITS ---
Reason for Visit Reason for Visit: Diagnoses Weakness (03/28/24) Objective Data Objective Data Vital Signs: Vital Signs Temp Pulse Resp BP Pulse Ox O2 Del Method 97.3 F L 79 18 119/67 100 Room Air 03/31/24 14:28 03/31/24 14:28 03/31/24 14:28 03/31/24 14:28 03/31/24 14:28 03/31/24 14:28 Oxygen Delivery Method Room Air Weight: 191 lb 4.8 oz Body Mass Index (BMI) 32.8 Intake & Output: Intake and Output for Last 24 Hours 03/29/24 03/30/24 03/31/24 23:59 23:59 23:59 Intake Total 1000 / 1000 700 / 700 220 / 220 Output Total 1125 / 1125 800 / 800 925 / 925 Balance -125 / -125 -100 / -100 -705 / -705 Lab / Micro Data 03/29/24 05:29 03/29/24 05:29 Micro: Microbiology 03/28/24 10:10 Mucosa - Nose SARS-CoV-2, Influenza & RSV (PCR) - Final Physical Exam Narrative Seen and examined. Patient on baseline. Moving his bowel. History of cerebral palsy. He can do basic functions of life including eating and going to bathroom/toilet but seems higher mental function is compromised. Physical exam General: Awake. Oriented x 3. No acute complaint. HEENT: Atraumatic, PERRLA, EOMI, Normocephalic Oral: Oral mucosa moist. No Gingival or Mucosal Lesions/ Ulcerations Neck: Supple, No JVD, Negative Carotid Bruits Chest wall/Lungs: Air entry diminished in bilateral lung bases. No crepitation/rhonchi Cardiovascular: Regular rate, Regular Rhythm, Normal S1, Normal S2, No M/G/R Abdomen: Bowel Sounds Present, Soft, Non Tender, Non-Distended : No dysuria. No renal angle tenderness. No suprapubic tenderness. Extremities: Mild venous edema, Capillary Refill Less than 3 Seconds Skin: No rashes, No breakdown Musculoskeletal: Chronic surgical scar of her right hand with muscle atrophy and contracture of wrist joint and fingers. No Tenderness to Palpation of Joints or Extremities. ROM restricted. Neurological: Cranial nerves II-XII grossly intact, DTR 2+/4. No acute focal neurological deficit. Psych/Mental Status: Flat affect Assessment & Plan Assessment/Plan (1) Generalized weakness: PLAN: Plan 73-year-old gentleman was admitted with generalized weakness, unable to ambulate from out of bed. He is only gets around with 4-prong walker. Denies other acute issues related to chest, GI, or chest pain or URI symptoms or fever or chills. # Generalized weakness: Patient is being admitted on MedSurg.. Vitamin D 25- hydroxy level. B12 low normal. Serum magnesium phosphorus in normal limits. Iron studies in normal limit. Ferritin normal -PT/OT -Case management/social work input appreciated 03/30: Patient had good large bowel movement yesterday and today. One-time emesis, clinically not significant. 03/31: No acute issues. Pending pre-CERT and discharge possible tomorrow a.m. TSH low. Free T4 normal, 1.12. # Chronic seizure disorder -Denies any recent seizure activity -Continue home Keppra and Tegretol # COPD -No current respiratory complaints or problems noted -Continue inhalers #Hypothyroidism -Continue Synthroid TSH low 0.169. Free T4 ordered for tomorrow AM. # History of cerebral palsy -Noted -PT/OT -Supportive care #DVT ppx: Lovenox subcu Charges/Coding Visit Charges Inpatient E&M: 17571 Subs Hosp L2
[2024-03-31] MEDS: 0.9% Saline Lock 10 ML Syringe IV (20:27)
[2024-04-01] VITALS (7 sets, daily range): BP systolic 123–134; BP diastolic 55–76; PULSE 71–86; RESP 18–20; TEMP 36.3–36.8; O2SAT 94–98
[2024-04-01] MEDS: carBAMazepine 200 MG Tablet PO ×3 (06:00→23:20)
[2024-04-01] MEDS: Levothyroxine 100 MCG Tablet PO (06:00)
[2024-04-01] MEDS: Albuterol 2.5 MG/3 ML VIAL.NEB. INHALATION ×3 (06:59→19:43)
[2024-04-01] MEDS: Budesonide Respules 0.5 MG/2 ML AMPUL.NEB. INHALATION ×2 (06:59→19:44)
[2024-04-01] MEDS: Enoxaparin 40 MG/0.4 ML Syringe SC (08:33)
[2024-04-01] MEDS: levETIRAcetam 500 MG Tablet PO ×2 (08:33→23:20)
[2024-04-01] MEDS: Menthol/Lanolin/Calamine/Znox 113 GM Tube 1 APPLIC TOPICAL ×2 (08:33→23:20)
[2024-04-01] MEDS: Polyethylene Glycol 3350 17 GM PACKET PO (08:33)
[2024-04-01] MEDS: Cyanocobalamin 500 MCG Tablet 1000 MCG PO (08:33)
--- NOTE | 2024-04-01 15:18 | PN.HOSP_ITS ---
Reason for Visit Reason for Visit: Diagnoses Weakness (03/28/24) Objective Data Objective Data Vital Signs: Vital Signs Temp Pulse Resp BP Pulse Ox O2 Del Method 97.4 F L 86 18 129/63 H 97 Room Air 04/01/24 14:30 04/01/24 14:30 04/01/24 14:30 04/01/24 14:30 04/01/24 14:30 04/01/24 14:30 Oxygen Delivery Method Room Air Weight: 191 lb 4.8 oz Body Mass Index (BMI) 32.8 Intake & Output: Intake and Output for Last 24 Hours 03/30/24 03/31/24 04/01/24 23:59 23:59 23:59 Intake Total 700 / 700 440 / 440 300 / 300 Output Total 800 / 800 1550 / 1550 450 / 450 Balance -100 / -100 -1110 / -1110 -150 / -150 Lab / Micro Data 03/29/24 05:29 03/29/24 05:29 Micro: Microbiology 03/28/24 10:10 Mucosa - Nose SARS-CoV-2, Influenza & RSV (PCR) - Final Physical Exam Narrative Seen and examined. Patient on baseline. Moving his bowel. No acute change. History of cerebral palsy. He can do basic functions of life including eating and going to bathroom/toilet but seems higher mental function is compromised. Physical exam General: Awake. Oriented x 3. No acute complaint. HEENT: Atraumatic, PERRLA, EOMI, Normocephalic Oral: Oral mucosa moist. No Gingival or Mucosal Lesions/ Ulcerations Neck: Supple, No JVD, Negative Carotid Bruits Chest wall/Lungs: Air entry diminished in bilateral lung bases. No crepitation/rhonchi Cardiovascular: Regular rate, Regular Rhythm, Normal S1, Normal S2, No M/G/R Abdomen: Bowel Sounds Present, Soft, Non Tender, Non-Distended : No dysuria. No renal angle tenderness. No suprapubic tenderness. Extremities: Mild venous edema, Capillary Refill Less than 3 Seconds Skin: No rashes, No breakdown Musculoskeletal: Chronic surgical scar of her right hand with muscle atrophy and contracture of wrist joint and fingers. No Tenderness to Palpation of Joints or Extremities. ROM restricted. Neurological: Cranial nerves II-XII grossly intact, DTR 2+/4. No acute focal neurological deficit. Psych/Mental Status: Flat affect Assessment & Plan Assessment/Plan (1) Generalized weakness: PLAN: Plan 73-year-old gentleman was admitted with generalized weakness, unable to ambulate from out of bed. He is only gets around with 4-prong walker. Denies other acute issues related to chest, GI, or chest pain or URI symptoms or fever or chills. # Generalized weakness: Patient is being admitted on MedSurg.. Vitamin D 25- hydroxy level. B12 low normal. Serum magnesium phosphorus in normal limits. Iron studies in normal limit. Ferritin normal -PT/OT -Case management/social work input appreciated 03/30: Patient had good large bowel movement yesterday and today. One-time emesis, clinically not significant. 03/31: No acute issues. Pending pre-CERT and discharge possible tomorrow a.m. TSH low. Free T4 normal, 1.12. 04/01: Discussed with the nursing staff. Patient has a history of MRDD with seizure. MRDD board will not clear it therefore it will take time for patient gets discharged to assisted subacute rehab living center. # Chronic seizure disorder -Denies any recent seizure activity -Continue home Keppra and Tegretol # COPD -No current respiratory complaints or problems noted -Continue inhalers #Hypothyroidism -Continue Synthroid TSH low 0.169. Free T4 ordered for tomorrow AM. # History of cerebral palsy -Noted -PT/OT -Supportive care #DVT ppx: Lovenox subcu Charges/Coding Visit Charges Inpatient E&M: 72284 Subs Hosp L2
[2024-04-01] MEDS: 0.9% Saline Lock 10 ML Syringe IV (23:22)
[2024-04-02] VITALS (8 sets, daily range): BP systolic 125–141; BP diastolic 51–68; PULSE 69–94; RESP 16–18; TEMP 36.2–36.9; O2SAT 95–99
[2024-04-02] MEDS: Levothyroxine 100 MCG Tablet PO (06:27)
[2024-04-02] MEDS: carBAMazepine 200 MG Tablet PO ×3 (06:27→23:02)
[2024-04-02] MEDS: Budesonide Respules 0.5 MG/2 ML AMPUL.NEB. INHALATION ×2 (07:16→18:56)
[2024-04-02] MEDS: Albuterol 2.5 MG/3 ML VIAL.NEB. INHALATION ×3 (07:16→18:56)
[2024-04-02] MEDS: Enoxaparin 40 MG/0.4 ML Syringe SC (09:24)
[2024-04-02] MEDS: levETIRAcetam 500 MG Tablet PO ×2 (09:25→23:02)
[2024-04-02] MEDS: Polyethylene Glycol 3350 17 GM PACKET PO (09:25)
[2024-04-02] MEDS: Cyanocobalamin 500 MCG Tablet 1000 MCG PO (09:25)
[2024-04-02] MEDS: Menthol/Lanolin/Calamine/Znox 113 GM Tube 1 APPLIC TOPICAL ×2 (09:25→23:03)
--- NOTE | 2024-04-02 10:12 | CASEMGMT ---
Met with patient to complete SORENSEN form. SORENSEN form explained to patient who voiced understanding and signed form. Original form placed in pt?s chart and copy provided to patient. Keila Alvarado, Discharge Planning Asst
--- NOTE | 2024-04-02 11:21 | CASEMGMT ---
Social Work- SW called [facility] to see if PASSR assessment request had come through their office at this time; there is no PASSR referral currently. JEAN PIERRE Alegria
--- NOTE | 2024-04-02 12:38 | PN.HOSP_ITS ---
Reason for Visit Reason for Visit: Diagnoses Weakness (03/28/24) Objective Data Objective Data Vital Signs: Vital Signs Temp Pulse Resp BP Pulse Ox O2 Del Method 97.7 F L 83 18 125/63 H 98 Room Air 04/02/24 10:00 04/02/24 10:00 04/02/24 10:00 04/02/24 10:00 04/02/24 10:00 04/02/24 10:00 Oxygen Delivery Method Room Air Weight: 191 lb 4.8 oz Body Mass Index (BMI) 32.8 Intake & Output: Intake and Output for Last 24 Hours 03/31/24 04/01/24 04/02/24 23:59 23:59 23:59 Intake Total 440 / 440 300 / 300 Output Total 1550 / 1550 450 / 450 500 / 500 Balance -1110 / -1110 -150 / -150 -500 / -500 Lab / Micro Data 03/29/24 05:29 03/29/24 05:29 Micro: Microbiology 03/28/24 10:10 Mucosa - Nose SARS-CoV-2, Influenza & RSV (PCR) - Final Physical Exam Narrative Seen and examined. Patient on baseline. Patient is stated that he moved his bowel about 1030 but the nurses has not seen it. On MiraLAX and senna S. History of cerebral palsy. He can do basic functions of life including eating and going to bathroom/toilet but seems higher mental function is compromised. Physical exam General: Awake. Oriented x 3. No acute complaint. HEENT: Atraumatic, PERRLA, EOMI, Normocephalic Oral: Oral mucosa moist. No Gingival or Mucosal Lesions/ Ulcerations Neck: Supple, No JVD, Negative Carotid Bruits Chest wall/Lungs: Air entry diminished in bilateral lung bases. No crepitation/rhonchi Cardiovascular: Regular rate, Regular Rhythm, Normal S1, Normal S2, No M/G/R Abdomen: Bowel Sounds Present, Soft, Non Tender, Non-Distended : No dysuria. No renal angle tenderness. No suprapubic tenderness. Extremities: Mild venous edema, Capillary Refill Less than 3 Seconds Skin: No rashes, No breakdown Musculoskeletal: Chronic surgical scar of her right hand with muscle atrophy and contracture of wrist joint and fingers. No Tenderness to Palpation of Joints or Extremities. ROM restricted. Neurological: Cranial nerves II-XII grossly intact, DTR 2+/4. No acute focal neurological deficit. Psych/Mental Status: Flat affect Assessment & Plan Assessment/Plan (1) Generalized weakness: PLAN: Plan 73-year-old gentleman was admitted with generalized weakness, unable to ambulate from out of bed. He is only gets around with 4-prong walker. Denies other acute issues related to chest, GI, or chest pain or URI symptoms or fever or chills. # Generalized weakness: Patient is being admitted on MedSurg.. Vitamin D 25- hydroxy level. B12 low normal. Serum magnesium phosphorus in normal limits. Iron studies in normal limit. Ferritin normal -PT/OT -Case management/social work input appreciated 03/30: Patient had good large bowel movement yesterday and today. One-time emesis, clinically not significant. 03/31: No acute issues. Pending pre-CERT and discharge possible tomorrow a.m. TSH low. Free T4 normal, 1.12. 04/01: Discussed with the nursing staff. Patient has a history of MRDD with seizure. MRDD board will not clear it therefore it will take time for patient gets discharged to assisted subacute rehab living center. 04/02: No acute change. Still pending the clearance from the MRDD board as mentioned above. # Chronic seizure disorder -Denies any recent seizure activity -Continue home Keppra and Tegretol # COPD -No current respiratory complaints or problems noted -Continue inhalers #Hypothyroidism -Continue Synthroid TSH low 0.169. Free T4 ordered for tomorrow AM. # History of cerebral palsy -Noted -PT/OT -Supportive care #DVT ppx: Lovenox subcu Charges/Coding Visit Charges Inpatient E&M: 63953 Subs Hosp L2
[2024-04-02] MEDS: Senna/Docusate Sodium 1 Tablet 2 TABLET PO (23:02)
[2024-04-03] VITALS (7 sets, daily range): BP systolic 124–136; BP diastolic 70–79; PULSE 74–97; RESP 18–20; TEMP 36.6–36.7; O2SAT 94–99
[2024-04-03] MEDS: carBAMazepine 200 MG Tablet PO ×3 (06:27→22:19)
[2024-04-03] MEDS: Levothyroxine 100 MCG Tablet PO (06:27)
[2024-04-03] MEDS: Budesonide Respules 0.5 MG/2 ML AMPUL.NEB. INHALATION ×2 (06:59→19:28)
[2024-04-03] MEDS: Albuterol 2.5 MG/3 ML VIAL.NEB. INHALATION ×3 (06:59→19:28)
--- NOTE | 2024-04-03 08:48 | CASEMGMT ---
Social Work Level II determination completed by the [place] Department of DD and pt has been approved for SNF placement. SW updated [facility] and requested that precert be started at this time. Plan: [facility], pending precert JEAN PIERRE Beltran
[2024-04-03] MEDS: Cyanocobalamin 500 MCG Tablet 1000 MCG PO (08:53)
[2024-04-03] MEDS: Enoxaparin 40 MG/0.4 ML Syringe SC (08:54)
[2024-04-03] MEDS: Menthol/Lanolin/Calamine/Znox 113 GM Tube 1 APPLIC TOPICAL ×2 (08:54→22:19)
[2024-04-03] MEDS: levETIRAcetam 500 MG Tablet PO ×2 (08:54→22:19)
[2024-04-03] MEDS: Polyethylene Glycol 3350 17 GM PACKET PO (08:54)
[2024-04-03] MEDS: Senna/Docusate Sodium 1 Tablet 2 TABLET PO (08:55)
--- NOTE | 2024-04-03 08:55 | CASEMGMT ---
Discharge Planning Updates sent to [facility]. Requested precert be submitted. Keila Alvarado DC Planning Asst.
--- NOTE | 2024-04-03 16:35 | PN.HOSP_ITS ---
Reason for Visit Reason for Visit: Diagnoses Weakness (03/28/24) Objective Data Objective Data Vital Signs: Vital Signs Temp Pulse Resp BP Pulse Ox O2 Del Method 98.1 F 90 18 131/70 H 95 Room Air 04/03/24 12:37 04/03/24 12:37 04/03/24 12:37 04/03/24 12:37 04/03/24 12:37 04/03/24 05:00 Oxygen Delivery Method Room Air Weight: 191 lb 4.8 oz Body Mass Index (BMI) 32.8 Intake & Output: Intake and Output for Last 24 Hours 04/01/24 04/02/24 04/03/24 23:59 23:59 23:59 Intake Total 300 / 300 750 / 750 Output Total 450 / 450 500 / 500 300 / 300 Balance -150 / -150 -500 / -500 450 / 450 Lab / Micro Data 03/29/24 05:29 03/29/24 05:29 Micro: Microbiology 03/28/24 10:10 Mucosa - Nose SARS-CoV-2, Influenza & RSV (PCR) - Final Physical Exam Narrative Seen and examined. Patient on baseline. No acute issues. History of cerebral palsy. He can do basic functions of life including eating and going to bathroom/toilet but seems higher mental function is compromised. Physical exam General: Awake. Oriented x 3. No acute complaint. HEENT: Atraumatic, PERRLA, EOMI, Normocephalic Oral: Oral mucosa moist. No Gingival or Mucosal Lesions/ Ulcerations Neck: Supple, No JVD, Negative Carotid Bruits Chest wall/Lungs: Air entry diminished in bilateral lung bases. No crepitation/rhonchi Cardiovascular: Regular rate, Regular Rhythm, Normal S1, Normal S2, No M/G/R Abdomen: Bowel Sounds Present, Soft, Non Tender, Non-Distended : No dysuria. No renal angle tenderness. No suprapubic tenderness. Extremities: Mild venous edema, Capillary Refill Less than 3 Seconds Skin: No rashes, No breakdown Musculoskeletal: Chronic surgical scar of her right hand with muscle atrophy and contracture of wrist joint and fingers. No Tenderness to Palpation of Joints or Extremities. ROM restricted. Neurological: Cranial nerves II-XII grossly intact, DTR 2+/4. No acute focal neurological deficit. Psych/Mental Status: Flat affect Assessment & Plan Assessment/Plan (1) Generalized weakness: PLAN: Plan 73-year-old gentleman was admitted with generalized weakness, unable to ambulate from out of bed. He is only gets around with 4-prong walker. Denies other acute issues related to chest, GI, or chest pain or URI symptoms or fever or chills. # Generalized weakness: Patient is being admitted on MedSurg.. Vitamin D 25- hydroxy level. B12 low normal. Serum magnesium phosphorus in normal limits. Iron studies in normal limit. Ferritin normal -PT/OT -Case management/social work input appreciated 03/30: Patient had good large bowel movement yesterday and today. One-time emesis, clinically not significant. 03/31: No acute issues. Pending pre-CERT and discharge possible tomorrow a.m. TSH low. Free T4 normal, 1.12. 04/01: Discussed with the nursing staff. Patient has a history of MRDD with seizure. MRDD board will not clear it therefore it will take time for patient gets discharged to assisted subacute rehab living center. 04/02: No acute change. Still pending the clearance from the MRDD board as mentioned above. 04/03: No acute change. Still pending transfer to SNF, pre-CERT pending. Morning labs ordered. # Chronic seizure disorder -Denies any recent seizure activity -Continue home Keppra and Tegretol # COPD -No current respiratory complaints or problems noted -Continue inhalers #Hypothyroidism -Continue Synthroid TSH low 0.169. Free T4 ordered for tomorrow AM. # History of cerebral palsy -Noted -PT/OT -Supportive care #DVT ppx: Lovenox subcu Charges/Coding Visit Charges Inpatient E&M: 62370 Subs Hosp L2
[2024-04-04] VITALS (7 sets, daily range): BP systolic 125–128; BP diastolic 66–83; PULSE 77–90; RESP 16–20; TEMP 36.6–37.2; O2SAT 95–98
[2024-04-04] MEDS: Levothyroxine 100 MCG Tablet PO (05:02)
[2024-04-04] MEDS: carBAMazepine 200 MG Tablet PO ×3 (05:02→21:21)
[2024-04-04 06:53] LABS: Absolute Lymphocyte Count 1.54 X10^3/uL (0.83-4.51); Absolute Neutrophil Count 5.4 X10^3/uL (2.0-7.7); Basophil# 0.08 X10^3/uL; Eosinophil# 0.19 X10^3/uL; Eosinophils% 2.3 % (0-5); Hematocrit 39.3 % (40-54); Hemoglobin 12.6 g/dL (13.0-16.5); Lymphocyte # 1.54 X10^3/ul (0.83-4.51); Lymphocyte % 18.9 % (19-41); Mean Corp Hgb Conc 32.1 g/dL (32-36); Mean Corpuscular Hgb 31.3 pg (27.0-32.0); Mean Corpuscular Volume 97.5 fL (80-94); Mean Platelet Vol. 9.9 fl (6.2-12.0); Monocyte# 0.86 X10^3/uL; Monocyte% 10.6 % (0-10); NRBC Flagged by Analyzer 0 % (0-5); Neutrophil # 5.41 X10^3/uL (2.7-7.7); Neutrophil % 66.5 % (47-70); Platelet Count 262 K/mm3 (150-450); RBC Distribution Width CV 12.8 % (11.6-14.6); RBC Distribution Width SD 45.4 fl (35.1-43.9); Red Blood Count 4.03 M/mm3 (4.6-6.2); White Blood Count 8.1 K/mm3 (4.4-11.0)
[2024-04-04] MEDS: Budesonide Respules 0.5 MG/2 ML AMPUL.NEB. INHALATION ×2 (07:16→19:54)
[2024-04-04] MEDS: Albuterol 2.5 MG/3 ML VIAL.NEB. INHALATION ×3 (07:16→19:54)
[2024-04-04 07:19] LABS: Anion Gap 5 (5-15); BUN 18 mg/dL (7-18); BUN/Creat Ratio 19.7 RATIO (10-20); Chloride 108 mmol/L (98-107); Creatinine, Serum 0.92 mg/dL (0.70-1.30); EST Glomerular Filtration Rate 86 mL/min (>60); Est Glom Filt Rate - Afr Amer 104 mL/min (>60); Estimated Creatinine Clearance 71.03 ml/min; Glucose 111 mg/dL (74-106); Potassium 4.3 mmol/L (3.5-5.1); Sodium Level 137 mmol/L (136-145)
--- NOTE | 2024-04-04 08:50 | CASEMGMT ---
Social Work- SW spoke with [facility], who reports that they provide care coordination services such as paying for meals on wheels and [facility]. SW provided update on d/c plans. JEAN PIERRE Alegria
[2024-04-04] MEDS: Enoxaparin 40 MG/0.4 ML Syringe SC (09:07)
[2024-04-04] MEDS: levETIRAcetam 500 MG Tablet PO ×2 (09:07→21:21)
[2024-04-04] MEDS: Cyanocobalamin 500 MCG Tablet 1000 MCG PO (09:07)
[2024-04-04] MEDS: Menthol/Lanolin/Calamine/Znox 113 GM Tube 1 APPLIC TOPICAL ×2 (09:08→21:22)
--- NOTE | 2024-04-04 09:45 | CASEMGMT ---
Received tc from Jethro at [facility]. He confirms dc plan is to [facility]. He states he will review the case and call with approval.
--- NOTE | 2024-04-04 16:36 | PN.HOSP_ITS ---
Reason for Visit Reason for Visit: Diagnoses Weakness (03/28/24) Objective Data Objective Data Vital Signs: Vital Signs Temp Pulse Resp BP Pulse Ox O2 Del Method 97.9 F 87 19 H 128/66 H 95 Room Air 04/04/24 11:00 04/04/24 13:32 04/04/24 13:32 04/04/24 11:00 04/04/24 11:00 04/04/24 11:00 Oxygen Delivery Method Room Air Weight: 191 lb 4.8 oz Body Mass Index (BMI) 32.8 Intake & Output: Intake and Output for Last 24 Hours 04/02/24 04/03/24 04/04/24 23:59 23:59 23:59 Intake Total 1100 / 1100 Output Total 500 / 500 700 / 700 Balance -500 / -500 400 / 400 Lab / Micro Data 04/04/24 06:20 04/04/24 06:20 Labs: Laboratory Results - last 24 hr 04/04/24 06:20: WBC 8.1, RBC 4.03 L, Hgb 12.6 L, Hct 39.3 L, MCV 97.5 H, MCH 31.3, MCHC 32.1, RDW Std Deviation 45.4 H, RDW Coeff of Julius 12.8, Plt Count 262, MPV 9.9, Immature Gran % (Auto) 0.700, Neut % (Auto) 66.5, Lymph % (Auto) 18.9 L , Shasta % (Auto) 10.6 H, Eos % (Auto) 2.3, Baso % (Auto) 1.0, Absolute Neuts (auto) 5.4, Absolute Lymphs (auto) 1.54, Nucleated RBC % 0, Sodium 137, Potassium 4.3, Chloride 108 H, Carbon Dioxide 24.0, Anion Gap 5, BUN 18, Creatinine 0.92, Estim Creat Clear Calc 71.03, Est GFR (MDRD) Af Amer 104, Est GFR (MDRD) Non-Af 86, BUN/Creatinine Ratio 19.7, Glucose 111 H, Calcium 9.0 Micro: Microbiology 03/28/24 10:10 Mucosa - Nose SARS-CoV-2, Influenza & RSV (PCR) - Final Physical Exam Narrative Seen and examined. Patient on baseline. Had bowel movement yesterday. No acute issues History of cerebral palsy. He can do basic functions of life including eating and going to bathroom/toilet but seems higher mental function is compromised. Physical exam General: Awake. Oriented x 3. No acute complaint. HEENT: Atraumatic, PERRLA, EOMI, Normocephalic Oral: Oral mucosa moist. No Gingival or Mucosal Lesions/ Ulcerations Neck: Supple, No JVD, Negative Carotid Bruits Chest wall/Lungs: Air entry diminished in bilateral lung bases. No crepitation/rhonchi Cardiovascular: Regular rate, Regular Rhythm, Normal S1, Normal S2, No M/G/R Abdomen: Bowel Sounds Present, Soft, Non Tender, Non-Distended : No dysuria. No renal angle tenderness. No suprapubic tenderness. Extremities: Mild venous edema, Capillary Refill Less than 3 Seconds Skin: No rashes, No breakdown Musculoskeletal: Chronic surgical scar of her right hand with muscle atrophy and contracture of wrist joint and fingers. No Tenderness to Palpation of Joints or Extremities. ROM restricted. Neurological: Cranial nerves II-XII grossly intact, DTR 2+/4. No acute focal neurological deficit. Psych/Mental Status: Flat affect Assessment & Plan Assessment/Plan (1) Generalized weakness: PLAN: Plan 73-year-old gentleman was admitted with generalized weakness, unable to ambulate from out of bed. He is only gets around with 4-prong walker. Denies other acute issues related to chest, GI, or chest pain or URI symptoms or fever or chills. # Generalized weakness: Patient is being admitted on MedSurg.. Vitamin D 25- hydroxy level. B12 low normal. Serum magnesium phosphorus in normal limits. Iron studies in normal limit. Ferritin normal -PT/OT -Case management/social work input appreciated 03/30: Patient had good large bowel movement yesterday and today. One-time emesis, clinically not significant. 03/31: No acute issues. Pending pre-CERT and discharge possible tomorrow a.m. TSH low. Free T4 normal, 1.12. 04/01: Discussed with the nursing staff. Patient has a history of MRDD with seizure. MRDD board will not clear it therefore it will take time for patient gets discharged to assisted subacute rehab living center. 04/02: No acute change. Still pending the clearance from the MRDD board as mentioned above. 04/03: No acute change. Still pending transfer to SNF, pre-CERT pending. Morning labs ordered. 04/04 no acute change. Same, waiting for pre-CERT. # Chronic seizure disorder -Denies any recent seizure activity -Continue home Keppra and Tegretol # COPD -No current respiratory complaints or problems noted -Continue inhalers #Hypothyroidism -Continue Synthroid TSH low 0.169. Free T4 1.12 normal. # History of cerebral palsy -Noted -PT/OT -Supportive care #DVT ppx: Lovenox subcu Charges/Coding Visit Charges Inpatient E&M: 51318 Subs Hosp L2
[2024-04-04] MEDS: Senna/Docusate Sodium 1 Tablet 2 TABLET PO (21:21)
[2024-04-05 05:00] VITALS: BP 105/69; PULSE 71; RESP 16; TEMP 36.4; O2SAT 98
[2024-04-05] MEDS: Cyanocobalamin 500 MCG Tablet 1000 MCG PO (05:49)
[2024-04-05] MEDS: carBAMazepine 200 MG Tablet PO ×3 (05:49→20:47)
[2024-04-05] MEDS: Menthol/Lanolin/Calamine/Znox 113 GM Tube 1 APPLIC TOPICAL (05:49)
[2024-04-05] MEDS: Levothyroxine 100 MCG Tablet PO (05:49)
[2024-04-05 07:30] VITALS: PULSE 81; RESP 19
[2024-04-05] MEDS: Budesonide Respules 0.5 MG/2 ML AMPUL.NEB. INHALATION ×2 (07:30→19:28)
[2024-04-05] MEDS: Albuterol 2.5 MG/3 ML VIAL.NEB. INHALATION ×2 (07:30→19:27)
--- NOTE | 2024-04-05 09:41 | CASEMGMT ---
Discharge Planning Updates sent to [facility]. Precert remains pending. Keila Alvarado DC Planning Asst.
[2024-04-05] MEDS: Enoxaparin 40 MG/0.4 ML Syringe SC (09:53)
[2024-04-05] MEDS: levETIRAcetam 500 MG Tablet PO ×2 (09:53→20:47)
[2024-04-05 11:00] VITALS: BP 124/63; PULSE 79; RESP 18; TEMP 37; O2SAT 97
--- NOTE | 2024-04-05 13:21 | CASEMGMT ---
Social Work- SW received phone call from Jethro sloan [facility] who informed SW that precert has been obtained. Precert #: [id number]. Valid 04/05-04/12/24. Contact number: [phone]. Physician and DCA informed of precert status. JEAN PIERRE Alegria
--- NOTE | 2024-04-05 13:39 | CASEMGMT ---
Discharge Planning [facility] has obtained auth to admit. SW updated. Keila Alvarado DC Planning Asst.
--- NOTE | 2024-04-05 14:35 | PCM.TXEXTCAR ---
Diet Diet Order/Speech Therapy: 03/28/24 14:27 Diet: Regular - General Food consistency:: Regular Liquid Consistency:: Regular/Thin Routine Orders/Code Status Suppository Type: Dulcolax 10mg Suppository Frequency: Daily PRN Wound(s) R elbow: Wound Type: Abrasion R knee: Wound Type: Abrasion Therapies Extremity Affected:: Bilateral Lower Physical Therapy: Eval and Treat Occupational Therapy: Eval and Treat Speech Therapy: Eval and Treat Problem/Diagnosis (1) Generalized weakness: Status: Inactive Code(s): R53.1 - Weakness Plan 73-year-old gentleman was admitted with generalized weakness, unable to ambulate from out of bed. He is only gets around with 4-prong walker. Denies other acute issues related to chest, GI, or chest pain or URI symptoms or fever or chills. # Generalized weakness: Patient is being admitted on MedSurg.. Vitamin D 25-hydroxy level. B12 low normal. Serum magnesium phosphorus in normal limits. Iron studies in normal limit. Ferritin normal -PT/OT -Case management/social work input appreciated 03/30: Patient had good large bowel movement yesterday and today. One-time emesis, clinically not significant. 03/31: No acute issues. Pending pre-CERT and discharge possible tomorrow a.m. TSH low. Free T4 normal, 1.12. 04/01: Discussed with the nursing staff. Patient has a history of MRDD with seizure. MRDD board will not clear it therefore it will take time for patient gets discharged to assisted subacute rehab living center. 04/02: No acute change. Still pending the clearance from the MRDD board as mentioned above. 04/03: No acute change. Still pending transfer to SNF, pre-CERT pending. Morning labs ordered. 04/04 no acute change. Same, waiting for pre-CERT. # Chronic seizure disorder -Denies any recent seizure activity -Continue home Keppra and Tegretol # COPD -No current respiratory complaints or problems noted -Continue inhalers #Hypothyroidism -Continue Synthroid TSH low 0.169. Free T4 1.12 normal. # History of cerebral palsy -Noted -PT/OT -Supportive care #DVT ppx: Lovenox subcu Allergies/Procedures Done in Hospital Allergies No Known Allergies Allergy (Verified 06/23/23 13:14) Type of Care/Length of Stay Estimated LOS: Convalescent Care Less Than 30 days Type of Care Needed: Skilled Rehab Potential: Good Prognosis: Good Additional Orders/Day of Discharge Day of Discharge: 04/05/24 Dietary and Speech Recommendations Dietitian Recommendations/Changes: Will continue liberalized regular diet with consistency/texture as per NURSING DEPARTMENT CHAIRPERSON. Will continue 120mL ensure plus HP 4 times per day w/ medpass. Monitor blood glucose level and restrict dietary carbohydrate as needed. Trend weights closely and adjust ONS as needed to optimize nutrition and prevent energy/pro depletion. Discharge Plan Admission Admit Date/Time: 03/28/24 13:51 Primary Reason for Your Visit: Generalized weakness Attending Provider: Kike Malave Primary Care Provider: Efe Patel Consulting Providers: Melissa Burton Discharge Orders/Prescriptions Prescriptions: New cyanocobalamin (vitamin B-12) 1,000 mcg tablet 1,000 mcg PO BREAKFAST 30 Days Qty: 0 2RF ergocalciferol (vitamin D2) [Vitamin D2] 1,250 mcg (50,000 unit) Capsule 1,250 mcg PO Q7D 30 Days Qty: 5 0RF sennosides-docusate sodium [Stimulant Laxative Plus] 8.6-50 mg Tablet 2 tab PO BID Qty: 0 0RF Continued levetiracetam 500 MG tablet 500 mg PO BID carbamazepine 200 MG tablet 200 mg PO TID fluticasone propion-salmeterol 500-50 mcg/dose blister with device 1 inh INHALATION DAILY levothyroxine [Levoxyl] 100 mcg tablet 100 mcg PO DAILY albuterol sulfate 1 PUFF inhaler 2 puff INHALATION Q4H PRN (Reason: wheezing/shortness of breath) Referrals / Follow Up: Efe Patel MD [Primary Care Provider] - Disposition Disposition (needs filled in before D/C Order can be placed): [facility]
--- NOTE | 2024-04-05 14:42 | PCM.DC.SUM ---
Providers Date of Admission: 03/28/24 Date of Discharge: 04/05/24 Primary Care Physician: Dr. Efe Patel MD Reason For Visit: WEAKNESS, INABILITY TO AMBULATE Diagnosis Discharge Diagnosis (1) Generalized weakness: Status: Inactive Code(s): R53.1 - Weakness Plan 73-year-old gentleman was admitted with generalized weakness, unable to ambulate from out of bed. He is only gets around with 4-prong walker. Denies other acute issues related to chest, GI, or chest pain or URI symptoms or fever or chills. # Generalized weakness: Patient is being admitted on MedSurg.. Vitamin D 25-hydroxy level. B12 low normal. Serum magnesium phosphorus in normal limits. Iron studies in normal limit. Ferritin normal -PT/OT -Case management/social work input appreciated 03/30: Patient had good large bowel movement yesterday and today. One-time emesis, clinically not significant. 03/31: No acute issues. Pending pre-CERT and discharge possible tomorrow a.m. TSH low. Free T4 normal, 1.12. 04/01: Discussed with the nursing staff. Patient has a history of MRDD with seizure. MRDD board will not clear it therefore it will take time for patient gets discharged to assisted subacute rehab living center. 04/02: No acute change. Still pending the clearance from the MRDD board as mentioned above. 04/03: No acute change. Still pending transfer to SNF, pre-CERT pending. Morning labs ordered. 04/04 no acute change. Same, waiting for pre-CERT. 04/08: Finally patient got the pre-CERT and is going to group home. Discharge meds reconciliation done. No acute issues. Patient voiding bowel. # Chronic seizure disorder -Denies any recent seizure activity -Continue home Keppra and Tegretol # COPD -No current respiratory complaints or problems noted -Continue inhalers No exacerbation #Hypothyroidism -Continue Synthroid TSH low 0.169. Free T4 1.12 normal. # History of cerebral palsy -Noted -PT/OT -Supportive care #DVT ppx: Lovenox subcu Discharge medication reconciliation done. Discharge follow-up instructions completed. Discharge process discussed with the patient and all questions were answered to patient's satisfaction. Follow with PCP in 1 to 2 weeks Total time spent, exact 35 minutes on discharge meds reconciliation, examination, coordination of care with nurses and ancillary staff, review of imaging and blood test and discussion with the patient on follow-up instructions. Medications at Discharge Home Medications carbamazepine 200 mg tablet 200 mg PO TID seizures 08/29/17 levetiracetam 500 mg tablet 500 mg PO BID seizures 08/29/17 fluticasone 500 mcg-salmeterol 50 mcg/dose blistr powdr for inhalation 1 inh inhalation DAILY 06/23/23 albuterol sulfate 90 mcg/actuation aerosol inhaler 2 puff inhalation Q4H PRN wheezing/shortness of breath 03/28/24 levothyroxine 100 mcg tablet (Levoxyl) 100 mcg PO DAILY 03/28/24 cyanocobalamin (vitamin B-12) 1,000 mcg tablet 1,000 mcg PO BREAKFAST 30 days #0 tabs 04/05/24 ergocalciferol (vitamin D2) 1,250 mcg (50,000 unit) capsule (Vitamin D2) 1,250 mcg PO Q7D 1 month #5 caps 04/05/24 sennosides 8.6 mg-docusate sodium 50 mg tablet (Stimulant Laxative Plus) 2 tab PO BID #0 tabs 04/05/24 Physical Exam Narrative Seen and examined. Patient on baseline. No acute issues History of cerebral palsy. He can do basic functions of life including eating and going to bathroom/toilet but seems higher mental function is compromised. Physical exam General: Awake. Oriented x 3. No acute complaint. HEENT: Atraumatic, PERRLA, EOMI, Normocephalic Oral: Oral mucosa moist. No Gingival or Mucosal Lesions/ Ulcerations Neck: Supple, No JVD, Negative Carotid Bruits Chest wall/Lungs: Air entry diminished in bilateral lung bases. No crepitation/rhonchi Cardiovascular: Regular rate, Regular Rhythm, Normal S1, Normal S2, No M/G/R Abdomen: Bowel Sounds Present, Soft, Non Tender, Non-Distended : No dysuria. No renal angle tenderness. No suprapubic tenderness. Extremities: Mild venous edema, Capillary Refill Less than 3 Seconds Skin: No rashes, No breakdown Musculoskeletal: Chronic surgical scar of her right hand with muscle atrophy and contracture of wrist joint and fingers. No Tenderness to Palpation of Joints or Extremities. ROM restricted. Neurological: Cranial nerves II-XII grossly intact, DTR 2+/4. No acute focal neurological deficit. Psych/Mental Status: Flat affect Weight / BMI Weight Weight: 191 lb 4.8 oz Body Mass Index (BMI) 32.8 ABG / Lab / Microbiology Data 04/04/24 06:20 04/04/24 06:20 Microbiology: Microbiology 03/28/24 10:10 Mucosa - Nose SARS-CoV-2, Influenza & RSV (PCR) - Final Meaningful Use Info Meaningful Use Meaningful Use Diagnoses (Choose all that apply): None applicable Ischemic Stroke Statin Dosing Therapy Reference: STATIN DOSE THERAPY REFERENCE: * Patients > 75 years receive moderate or high dose statin therapy. * Patients 75 years or YOUNGER should receive HIGH intensity statin dose unless contraindicated. You will be required to document reason for non-treatment if statin daily dose does not meet guidelines. HIGH DOSE STATIN THERAPY DAILY Atorvastatin > than or = to 40 mg Rosuvastatin > than or = to 20 mg Amlodipine + Atorvastatin > than or = to 2.5/40 mg Ezetimibe + Simvastatin 10/80 mg Simvastatin 80mg Discharge Plan Admission Admit Date/Time: 03/28/24 13:51 Primary Reason for Your Visit: Generalized weakness Attending Provider: Kike Malave Primary Care Provider: Efe Patel Consulting Providers: Melissa Burton Discharge Orders/Prescriptions Prescriptions: New cyanocobalamin (vitamin B-12) 1,000 mcg tablet 1,000 mcg PO BREAKFAST 30 Days Qty: 0 2RF ergocalciferol (vitamin D2) [Vitamin D2] 1,250 mcg (50,000 unit) Capsule 1,250 mcg PO Q7D 30 Days Qty: 5 0RF sennosides-docusate sodium [Stimulant Laxative Plus] 8.6-50 mg Tablet 2 tab PO BID Qty: 0 0RF Continued levetiracetam 500 MG tablet 500 mg PO BID carbamazepine 200 MG tablet 200 mg PO TID fluticasone propion-salmeterol 500-50 mcg/dose blister with device 1 inh INHALATION DAILY levothyroxine [Levoxyl] 100 mcg tablet 100 mcg PO DAILY albuterol sulfate 1 PUFF inhaler 2 puff INHALATION Q4H PRN (Reason: wheezing/shortness of breath) Referrals / Follow Up: Efe Patel MD [Primary Care Provider] - Within 2 Weeks Disposition Disposition (needs filled in before D/C Order can be placed): [facility] Charges/Coding Visit Charges Inpatient E&M: 01389 Disch Hosp >30min
--- NOTE | 2024-04-05 15:22 | CASEMGMT ---
Social Work Precert has been obtained.? Physician updated and pt is ready for discharge today.? [facility] convalescent form completed in [facility]. DCA and bedside nurse notified of discharge. Disposition:[facility], skilled level of care under convalescent stay. JEAN PIERRE Alegria
[2024-04-05] MEDS: Ergocalciferol 1.25 MG (50, 000 UNIT) Capsule PO (15:50)
[2024-04-05 16:01] VITALS: BP 122/68; PULSE 86; RESP 16; TEMP 36.7; O2SAT 98
--- NOTE | 2024-04-05 16:36 | CASEMGMT ---
Discharge Planning Discharge orders, signed med list, and transport time sent to [facility] via [facility]. Physicians will transport patient by wheelchair at 7p. Nursing, SW, patient, and his mother (Batsheva) updated. Keila Alvarado DC Planning Asst.
[2024-04-05 19:28] VITALS: PULSE 85; RESP 20
== END 2024-04-05 22:16 | disposition skilled nursing facility (03) ==
LOC: ED 10:41 → MS3 12:56
PROVIDERS: Admitting Provider Internal Medicine; Emergency Provider Surgery; PCP Family Medicine; Visit Provider Internal Medicine
DX: R53.1 Weakness (principal); J44.9 Chronic obstructive pulmonary disease, unspecified; G80.9 Cerebral palsy, unspecified; G40.909 Epilepsy, unspecified, not intractable, without status epilepticus; M25.552 Pain in left hip; D64.9 Anemia, unspecified; R53.81 Other malaise; R26.2 Difficulty in walking, not elsewhere classified; M25.551 Pain in right hip; Z87.891 Personal history of nicotine dependence; Z79.890 Hormone replacement therapy; Z79.899 Other long term (current) drug therapy; Z86.718 Personal history of other venous thrombosis and embolism; Z79.51 Long term (current) use of inhaled steroids; E03.9 Hypothyroidism, unspecified
CPT/HCPCS: 36415; 71045; 80048; 80076; 81001; 82306; 82607; 82728; 83540; 83550; 83605; 83735; 84100; 84439; 84443; 84484; 85025; 87631; 93005; 93970; 94640; 94668; 96361; 96372; 96374; 97110; 97116; 97162; 97166; 97530; 97535; 99221; 99284; J7030; A4216; G0378; J2405

== ENCOUNTER → 2024-06-18 | Outpatient (REF) | payer MEDICARE, SELFPAY ==
[2024-06-18 07:22] LABS: Absolute Lymphocyte Count 1.57 X10^3/uL (0.83-4.51); Absolute Neutrophil Count 2.9 X10^3/uL (2.0-7.7); Basophil# 0.06 X10^3/uL; Eosinophil# 0.43 X10^3/uL; Eosinophils% 7.4 % (0-5); Hematocrit 34.6 % (40-54); Hemoglobin 11.1 g/dL (13.0-16.5); Lymphocyte # 1.57 X10^3/ul (0.83-4.51); Lymphocyte % 27.1 % (19-41); Mean Corp Hgb Conc 32.1 g/dL (32-36); Mean Corpuscular Hgb 31.8 pg (27.0-32.0); Mean Corpuscular Volume 99.1 fL (80-94); Mean Platelet Vol. 10.3 fl (6.2-12.0); Monocyte% 13.8 % (0-10); NRBC Flagged by Analyzer 0 % (0-5); Neutrophil # 2.91 X10^3/uL (2.7-7.7); Neutrophil % 50.4 % (47-70); Platelet Count 229 K/mm3 (150-450); RBC Distribution Width CV 13.4 % (11.6-14.6); RBC Distribution Width SD 48.7 fl (35.1-43.9); Red Blood Count 3.49 M/mm3 (4.6-6.2); White Blood Count 5.8 K/mm3 (4.4-11.0)
[2024-06-18 07:49] LABS: Anion Gap 4 (5-15); BUN 17 mg/dL (7-18); BUN/Creat Ratio 15.7 RATIO (10-20); Calcium,Total 8.5 mg/dL (8.5-10.1); Chloride 113 mmol/L (98-107); Creatinine, Serum 1.08 mg/dL (0.70-1.30); EST Glomerular Filtration Rate 71 mL/min (>60); Est Glom Filt Rate - Afr Amer 86 mL/min (>60); Glucose 106 mg/dL (74-106); Potassium 4.2 mmol/L (3.5-5.1); Sodium Level 140 mmol/L (136-145)
== END ==
LOC: OLS.WHLEAS 05:00
PROVIDERS: PCP Family Medicine; Visit Provider Internal Medicine
DX: G80.9 Cerebral palsy, unspecified (principal); M62.561 Muscle wasting and atrophy, not elsewhere classified, right lower leg; M62.562 Muscle wasting and atrophy, not elsewhere classified, left lower leg
CPT/HCPCS: 36415; 80048; 85025

== ENCOUNTER → 2024-07-23 04:50 | Outpatient (REF) | payer MEDICARE, SELFPAY ==
[2024-07-23 08:39] LABS: Vitamin B12 1011 pg/mL (211-911); Vitamin D,25 Hydroxy 46.8 ng/mL
[2024-07-23 08:54] LABS: AST(SGOT) 16 U/L (15-37); Alanine Aminotransfer ALT/SGPT 26 U/L (16-61); Albumin, Serum 2.9 g/dL (3.2-5.0); Alkaline Phosphatase 70 U/L (45-117); Bilirubin, Direct 0.06 mg/dL (0.00-0.30); Globulin 3.7 g/dL (2.2-4.2); Protein, Total 6.6 g/dL (6.4-8.2)
[2024-07-23 10:02] LABS: Carbamazepine (Tegretol) 9.6 ug/mL (4.0-12.0)
[2024-07-25 16:08] LABS: KEPPRA (LEVETIRACETAM) 14.1 ug/mL (10.0-40.0)
== END ==
LOC: OLS.WHLEAS 04:50
PROVIDERS: PCP Family Medicine; Referring Provider Internal Medicine; Visit Provider Internal Medicine
DX: G40.319 Generalized idiopathic epilepsy and epileptic syndromes, intractable, without status epilepticus (principal)
CPT/HCPCS: 36415; 80076; 80156; 80177; 82306; 82607; 84443

== ENCOUNTER → 2024-08-20 05:00 | Outpatient (REF) | payer MEDICARE, SELFPAY ==
[2024-08-20 09:26] LABS: AST(SGOT) 24 U/L (15-37); Alanine Aminotransfer ALT/SGPT 38 U/L (16-61); Alkaline Phosphatase 86 U/L (45-117); Bilirubin, Direct 0.11 mg/dL (0.00-0.30); Globulin 3.8 g/dL (2.2-4.2); Protein, Total 6.8 g/dL (6.4-8.2)
[2024-08-20 09:58] LABS: Vitamin B12 1165 pg/mL (211-911)
== END ==
LOC: OLS.WHLEAS 05:00
PROVIDERS: PCP Family Medicine; Visit Provider Internal Medicine
DX: R48.8 Other symbolic dysfunctions (principal); G80.9 Cerebral palsy, unspecified; M62.561 Muscle wasting and atrophy, not elsewhere classified, right lower leg; M62.562 Muscle wasting and atrophy, not elsewhere classified, left lower leg
CPT/HCPCS: 36415; 80076; 82607

== ENCOUNTER → 2024-09-03 05:00 | Outpatient (REF) | payer MEDICARE, SELFPAY | LOC: OLS.WHLEAS 05:00 | PROVIDERS: PCP Family Medicine; Visit Provider Internal Medicine | DX: G80.9 Cerebral palsy, unspecified (principal); R54 Age-related physical debility; M62.561 Muscle wasting and atrophy, not elsewhere classified, right lower leg; M62.562 Muscle wasting and atrophy, not elsewhere classified, left lower leg; E03.9 Hypothyroidism, unspecified | CPT/HCPCS: 36415; 84443 ==

== ENCOUNTER → 2024-09-17 | Outpatient (REF) | payer MEDICARE, SELFPAY ==
[2024-09-17 09:15] LABS: AST(SGOT) 19 U/L (<=37); Alanine Aminotransfer ALT/SGPT 15 U/L (<=46); Albumin, Serum 3.4 g/dL (3.4-4.8); Alkaline Phosphatase 74 U/L (40-129); Bilirubin, Direct 0.09 mg/dL (0.00-0.30); Protein, Total 6.4 g/dL (5.9-8.4); Total Bilirubin 0.18 mg/dL (0.00-1.30); Vitamin B12 603 pg/mL (180-914)
== END ==
LOC: OLS.WHLEAS 04:00
PROVIDERS: PCP Family Medicine; Referring Provider Internal Medicine; Visit Provider Internal Medicine
DX: R48.8 Other symbolic dysfunctions (principal); G80.9 Cerebral palsy, unspecified; M62.561 Muscle wasting and atrophy, not elsewhere classified, right lower leg; M62.562 Muscle wasting and atrophy, not elsewhere classified, left lower leg; Z79.899 Other long term (current) drug therapy
CPT/HCPCS: 36415; 80076; 82607

== ENCOUNTER → 2024-10-04 | Outpatient (REF) | payer MEDICARE, SELFPAY ==
[2024-10-04 09:19] LABS: Cholesterol 187 mg/dL (<=200); High Density Lipoprotein 65 mg/dL; Low Density Lipoprotein Calc. 113 mg/dL; Triglycerides 46 mg/dL; Very Low Density Lipoprotein 9 mg/dL (5-40); cholesterol:hdl ratio screen 2.88
== END ==
LOC: OLS.WHLEAS 05:00
PROVIDERS: PCP Family Medicine; Visit Provider Internal Medicine
DX: R48.8 Other symbolic dysfunctions (principal); Z79.899 Other long term (current) drug therapy
CPT/HCPCS: 36415; 80061

== ENCOUNTER → 2024-10-15 | Outpatient (REF) | payer MEDICARE, SELFPAY ==
[2024-10-15 08:58] LABS: Absolute Lymphocyte Count 1.44 X10^3/uL (0.83-4.51); Absolute Neutrophil Count 2.5 X10^3/uL (2.0-7.7); Basophil# 0.04 X10^3/uL; Basophil% 0.8 % (0-1); Eosinophil# 0.38 X10^3/uL; Eosinophils% 7.6 % (0-5); Hematocrit 33.6 % (40-54); Lymphocyte # 1.44 X10^3/ul (0.83-4.51); Lymphocyte % 28.9 % (19-41); Mean Corp Hgb Conc 32.7 g/dL (32-36); Mean Corpuscular Hgb 32.2 pg (27.0-32.0); Mean Corpuscular Volume 98.2 fL (80-94); Mean Platelet Vol. 10.4 fl (6.2-12.0); Monocyte# 0.65 X10^3/uL; Monocyte% 13.1 % (0-10); NRBC Flagged by Analyzer 0 % (0-5); Neutrophil # 2.45 X10^3/uL (2.7-7.7); Neutrophil % 49.2 % (47-70); Platelet Count 226 K/mm3 (150-450); RBC Distribution Width CV 12.7 % (11.6-14.6); RBC Distribution Width SD 45.4 fl (35.1-43.9); Red Blood Count 3.42 M/mm3 (4.6-6.2)
[2024-10-15 09:30] LABS: AST(SGOT) 19 U/L (<=37); Alanine Aminotransfer ALT/SGPT 15 U/L (<=46); Albumin, Serum 3.5 g/dL (3.4-4.8); Alkaline Phosphatase 79 U/L (40-129); Anion Gap 11 (5-15); BUN 12 mg/dL (4-19); BUN/Creat Ratio 12.1 RATIO (10-20); Bilirubin, Direct 0.09 mg/dL (0.00-0.30); Calcium,Total 8.6 mg/dL (7.6-11.0); Carbon Dioxide 21.3 mmol/L (21.0-32.0); Chloride 108 mmol/L (98-108); Creatinine, Serum 1.01 mg/dL (0.70-1.20); EST Glomerular Filtration Rate 78 (>60); Globulin 2.9 g/dL (2.2-4.2); Glucose 102 mg/dL (70-99); Protein, Total 6.4 g/dL (5.9-8.4); Sodium Level 141 mmol/L (133-145); Total Bilirubin 0.24 mg/dL (0.00-1.30); Vitamin B12 533 pg/mL (180-914)
== END ==
LOC: OLS.WHLEAS 05:00
PROVIDERS: PCP Family Medicine; Visit Provider Nurse Practitioner Adult Health
DX: G80.9 Cerebral palsy, unspecified (principal); R48.8 Other symbolic dysfunctions; M62.561 Muscle wasting and atrophy, not elsewhere classified, right lower leg; M62.562 Muscle wasting and atrophy, not elsewhere classified, left lower leg; E03.9 Hypothyroidism, unspecified
CPT/HCPCS: 36415; 80048; 80076; 82607; 84443; 85025

== ENCOUNTER → 2024-11-19 | Outpatient (REF) | payer MEDICARE, SELFPAY ==
[2024-11-19 09:34] LABS: AST(SGOT) 18 U/L (<=37); Alanine Aminotransfer ALT/SGPT 12 U/L (<=46); Albumin, Serum 3.6 g/dL (3.4-4.8); Alkaline Phosphatase 75 U/L (40-129); Bilirubin, Direct 0.11 mg/dL (0.00-0.30); Globulin 3.1 g/dL (2.2-4.2); Protein, Total 6.7 g/dL (5.9-8.4); Vitamin B12 521 pg/mL (180-914)
== END ==
LOC: OLS.WHLEAS 05:00
PROVIDERS: PCP Family Medicine; Visit Provider Nurse Practitioner Adult Health
DX: R48.8 Other symbolic dysfunctions (principal); G80.9 Cerebral palsy, unspecified; M62.561 Muscle wasting and atrophy, not elsewhere classified, right lower leg; M62.562 Muscle wasting and atrophy, not elsewhere classified, left lower leg
CPT/HCPCS: 36415; 80076; 82607

== ENCOUNTER → 2024-11-26 | Outpatient (REF) | payer MEDICARE, MEDICAID, SELFPAY | LOC: OLS.WHLEAS 05:00 | PROVIDERS: PCP Family Medicine; Visit Provider Internal Medicine | DX: E03.9 Hypothyroidism, unspecified (principal) | CPT/HCPCS: 36415; 84443 ==

== ENCOUNTER → 2024-12-17 05:00 | Outpatient (REF) | payer MEDICARE, MEDICAID, SELFPAY ==
[2024-12-17 09:35] LABS: Vitamin B12 455 pg/mL (180-914)
[2024-12-17 09:37] LABS: AST(SGOT) 18 U/L (<=37); Alanine Aminotransfer ALT/SGPT 18 U/L (<=46); Albumin, Serum 3.7 g/dL (3.4-4.8); Alkaline Phosphatase 85 U/L (40-129); Bilirubin, Direct < 0.08 mg/dL (0.00-0.30); Globulin 2.9 g/dL (2.2-4.2); Protein, Total 6.6 g/dL (5.9-8.4); Total Bilirubin 0.19 mg/dL (0.00-1.30)
== END ==
LOC: OLS.WHLEAS 05:00
PROVIDERS: PCP Family Medicine; Visit Provider Nurse Practitioner Adult Health
DX: R48.8 Other symbolic dysfunctions (principal); G80.9 Cerebral palsy, unspecified; R54 Age-related physical debility; M62.561 Muscle wasting and atrophy, not elsewhere classified, right lower leg; M62.562 Muscle wasting and atrophy, not elsewhere classified, left lower leg
CPT/HCPCS: 36415; 80076; 82607

== ENCOUNTER → 2025-01-07 05:00 | Outpatient (REF) | payer MEDICARE, MEDICAID, SELFPAY | LOC: OLS.WHLEAS 05:00 | PROVIDERS: PCP Family Medicine; Visit Provider Internal Medicine | DX: E03.9 Hypothyroidism, unspecified (principal) | CPT/HCPCS: 36415; 84443 ==

== ENCOUNTER → 2025-01-14 | Outpatient (REF) | payer MEDICARE, MEDICAID, SELFPAY ==
--- OUTSIDE RECORDS SUMMARY | 2025-01-14 04:53 | XMS RPT_ITS | CCD ---
Author Organization [facility] Care Team Providers Care Filling Station Equipment Mechanic Name Role Phone Usman Patel MD Primary Care Provider Dr. Usman Patel Primary Care Provider Dr. Ethan Martinez Emergency Provider Dr. Raoul Oliver Admit Provider Dr. Raoul Oliver Attending Provider Dr. Raoul Oliver Other Provider Dr. Kike Malave Attending Provider Dr. Kike Malave Other Provider Usman Patel MD Primary Care Provider USMAN PATEL Referring Unavailable USMAN PATEL Primary Care Unavailable USMAN PATEL Referring Unavailable USMAN PATEL Primary Care Unavailable Usman Patel MD Primary Care Provider Shayna Frias APRN.CNP Unavailable TEMITOPE LARA Referring Unavailable AIDEN MCCRARY Attending Unavailable USMAN PATEL Primary Care Unavailable TEMITOPE LARA Referring Unavailable USMAN PATEL Primary Care Unavailable TEMITOPE LARA Referring Unavailable USMAN PATEL Primary Care Unavailable TEMITOPE LARA Attending Unavailable USMAN PATEL Referring Unavailable USMAN PATEL Primary Care Unavailable USMAN PATEL Primary Care Unavailable FRITZ GRANADOS Referring Unavailable USMAN PATEL Attending Unavailable USMAN PATEL Primary Care Unavailable AIDEN MCCRARY Referring Unavailable USMAN PATEL Primary Care Unavailable AIDEN MCCRARY Referring Unavailable USMAN PATEL Primary Care Unavailable Jorge TRIPATHI, Dr. Wilks Primary Care Provider [phone] Gallo TRIPATHI, Micaela Attending Provider Unavailoscar Holder MD, Micaela Referring Provider Unavailoscar Macdonald HUMAN RESOURCES INTERN-CJolly Attending Provider Jorge TRIPATHI, Dr. Wilks Primary Care Provider Gallo TRIPATHI, Micaela Attending Provider Unavailoscar Holder MD, Micaela Referring Provider Unavailoscar Patel MD, Dr. Wilks Primary Care Provider [phone] Gallo TRIPATHI, Micaela Attending Provider Unavailoscar Patel MD, Dr. Wilks Primary Care Provider [phone] Gallo TRIPATHI, Micaela Attending Provider Unavailoscar Holder MD, Dr. Hinojosa Attending Provider Melissa Burton Consulting Unavailable Melissa Burton Admitting Unavailable Usman Patel Primary Care Unavailable Kike Malave Attending Unavailable Kike Malave Consulting Unavailable Usman Patel Attending Unavailable Usman Patel Referring Unavailable Jorge, Usman Primary Care Unavailable Oleghe OLS, Efewongbe Attending Unavailabl e Usman Patel Primary Care Unavailable Oleghe OLS, Efewongbe Attending Unavailabl e ElderbroUsman lester Primary Care Unavailable Tickmonse MÉNDEZ Jolly Attending Unavailable ElderbroUsman lester Primary Care Unavailable Oleghe OLS, Efewongbe Attending Unavailabl e ElderbrockUsman Primary Care Unavailable Tickmonse MÉNDEZ Jolly Attending Unavailable Elderbrock, Usman Primary Care Unavailable Tickton HONEY Jolly Attending Unavailable ElderbrockUsman Primary Care Unavailable Oleghe OLS, Efewongbe Attending Unavailabl e ElderbrockUsman Primary Care Unavailable Oleghe OLS, Efewongbe Attending Unavailabl e ElderbroUsman lester Primary Care Unavailable Oleghe OLS, Efewongbe Referring Unavailabl e Oleghe OLS, Efewongbe Attending Unavailabl e ElderbroUsman lester Primary Care Unavailable Oleghe OLS, Efewongbe Attending Unavailabl e NathanbroUsman lester Primary Care Unavailable Melissa Burton Consulting Unavailable Melissa Burton Admitting Unavailable Usman Patel Primary Care Unavailable Kike Malave Attending Unavailable Oleghe, Efewongbe Attending Unavailable Elderbrock, Usman Primary Care Unavailable Melissa Burton Attending Unavailable Oleghe OLS, Efewongbe Attending Unavailabl e Elderbrock, Usman Primary Care Unavailable Oleghe OLS, Efewongbe Attending Unavailabl e Elderbrock, Usman Primary Care Unavailable Oleghe OLS, Efewongbe Attending Unavailabl e Elderbrock, Usman Primary Care Unavailable Oleghe OLS, Efewongbe Attending Unavailabl e Elderbrock, Usman Primary Care Unavailable Elderbrock, Usman Primary Care Unavailable Oleghe OLS, Efewongbe Attending Unavailabl e Oleghe OLS, Efewongbe Attending Unavailabl e Elderbrock, Usman Primary Care Unavailable Elderbrock, Usman Primary Care Unavailable Oleghe OLS, Efewongbe Attending Unavailabl e Oleghe OLS, Efewongbe Referring Unavailabl e Elderbrock, Usman Primary Care Unavailable Oleghe OLS, Efewongbe Attending Unavailabl e Allergies Allergy Classification Reported Allergen(s) Allergy Type Date of Onset Reaction(s) Facility (20 sources) Seasonal allergy; Translations: [SEASONAL ALLERGIES] Allergy to substance 2 Other: See Comments [facility] Medications Current Medications Medication Drug Class(es) Dates Sig (Normalized) Sig (Original) [id number] 200 actuat albuterol 0.09 mg/actuat metered dose inhaler (17 sources) beta2-Adrenergic Agonist Start: 03-28-2024 Albuterol Sulfate 1 PUFF inhaler Active 2 NMA INHALATION Q4H as needed for wheezing/shortness of breath March 28, 2024 12:00am Start: 08-24-2022 End: 09-18-2022 take 2 puff(s) by inhalation every four hours as needed for wheezing albuterol HFA (VENTOLIN HFA) 90 mcg/actuation inhaler Indications: SOB (shortness of breath) Inhale 2 Puffs as instructed every 4 hours as needed for wheezing/shortness of breath for up to 10 days. 1 Each 3 09/08/2022 Active Start: 03-23-2018 End: 11-08-2021 take 2 puff(s) by inhalation every four hours as needed albuterol HFA (PROVENTIL HFA, VENTOLIN HFA) 90 mcg/actuation inhaler Indications: COPD with chronic bronchitis (HCC) 2 PUFFS EVERY 4 HOURS NEEDED 3 Inhaler 3 03/23/2018 11/08/2021 Discontinued Start: 09-01-2017 take 1 puff(s) by in halation every four hours as needed Albuterol Sulfate Active 2 PUFF INHALATION EVERY 4 HOURS NEEDED September 01, 2017 12:00am Start: 09-01-2017 take 1 puff(s) by in halation every four hours as needed Albuterol Sulfate Active 2 PUFF INHALATION EVERY 4 HOURS NEEDED September 01, 2017 1:00am Comment on above: Inhale 2 Puffs as in structed every 4 hours as needed for wheezing/shortness of breath for up to 10 days. carBAMazepine 200 mg oral tablet (20 sources) Mood Stabilizer Start: 03-29-2021 End: 03-04-2024 carBAMazepine (TEGRETOL) 200 mg tablet one tablet every AM, and 2 every evening 270 tablet 3 03/04/2024 Active Start: 08-29-2017 take 1 tablet by cj th three times daily Carbamazepine 200 MG tablet Active 200 mg PO THREE TIMES A DAY August 29, 2017 5:18pm Start: 08-23-2013 End: 09-01-2013 take 300 mg by mouth at bedtime Carbamazepine Disconti nued 300 MG PO AT BEDTIME August 23, 2013 12:00am September 01, 2013 10:50am Start: 07-26-2013 End: 08-29-2017 take 1 tablet by mouth once daily Carbamazepine 200 MG tablet Discontinued 200 mg PO DAILY September 01, 2013 11:50am August 29, 2017 5:18pm Start: 07-26-2013 End: 09-01-2013 take 1.5 tablets by mouth once daily Tegretol Discontinued 1.5 TABLET PO DAILY July 26, 2013 12:00am September 01, 2013 10:49am Start: 07-26-2013 End: 09-01-2013 take 1.5 tablets by mouth once daily Tegretol Discontinued 1.5 TABLET PO DAILY July 26, 2013 1:00am September 01, 2013 11:49am Comment on above: one tablet every AM, and 2 every evening docusate sodium 50 mg / sennosides, custodial 8.6 mg oral tablet (5 sources) Start: Sennosides-Docusate Sodium (Stimulant Laxative Plus) 8.6-50 mg Tablet Active 2 {tbl} PO TWICE A DAY 0 April 05, 2024 12:00am doxycycline hyclate 100 mg oral tablet (9 sources) Tetracycline-clas s Drug Start: End: take 1 tablet by mouth twice daily doxycycline (VIBRA-TABS) 100 mg tablet Indications: Sinobronchitis Take 1 tablet by mouth twice daily for 10 days. 20 tablet 0 08/24/2022 09/03/2022 Active Start: 10-19-2018 End: 06-23-2023 take 1 capsule by mouth twice daily Doxycycline Monohydrate 100 MG capsule Discontinued 100 mg PO TWICE A DAY October 19, 2018 12:00am June 23, 2023 9:20pm Comment on above: Take 1 tablet by cj th twice daily for 10 days. ergocalciferol 1.25 mg oral capsule (5 sources) Provitamin D2 Compound Start: Ergocalciferol (Vitamin D2) (Vitamin D2) 1,250 mcg (50,000 unit) Capsule Active 1250 ug PO Q7D 5 April 05, 2024 12:00am fluticasone / salmeterol (20 sources) Corticosteroid, beta2-Adrenergic Agonist Start: take 1 puff(s) by inhalation twice daily fluticasone-salmetero l (ADVAIR DISKUS) 500-50 mcg/dose dsdv Inhale 1 Puff as instructed two times a day. 3 Each 3 03/04/2024 Active Start: 06-23-2023 Fluticasone Pr opion-Salmeterol 500-50 mcg/dose blister with device Active 1 NMA INHALATION DAILY June 23, 2023 1:00am Start: 06-23-2023 Fluticasone Pr opion-Salmeterol Active 1 INH INHALATION DAILY June 23, 2023 12:00am Start: 06-01-2023 End: 03-04-2024 take 1 puff(s) by inhalation twice daily fluticasone-salmeterol (ADVAIR DISKUS) 500-50 mcg/dose dsdv Inhale 1 Puff as instructed two times a day. 3 Each 3 06/01/2023 03/04/2024 Discontinued Start: 06-01-2023 take 1 puff(s) by in halation twice daily fluticasone-salmeterol (ADVAIR DISKUS) 500-50 mcg/dose dsdv Inhale 1 Puff as instructed two times a day. 3 Each 3 06/01/2023 Active Start: 05-02-2022 End: 06-01-2023 take 1 puff(s) by inhalation twice daily fluticasone-salmeterol (ADVAIR DISKUS) 500-50 mcg/dose dsdv Inhale 1 Puff as instructed twice daily. 3 Each 3 05/02/2022 06/01/2023 Discontinued Start: 05-02-2022 take 1 puff(s) by in halation twice daily fluticasone-salmeterol (ADVAIR DISKUS) 500-50 mcg/dose dsdv Inhale 1 Puff as instructed twice daily. 3 Each 3 05/02/2022 Active Start: 06-30-2021 End: 05-02-2022 take 1 puff(s) by inhalation twice daily fluticasone-salmeterol (ADVAIR DISKUS) 500-50 mcg/dose dsdv Inhale 1 Puff as instructed twice daily. 3 Each 3 06/30/2021 05/02/2022 Discontinued Start: 06-30-2021 take 1 puff(s) by in halation twice daily fluticasone-salmeterol (ADVAIR DISKUS) 500-50 mcg/dose dsdv Inhale 1 Puff as instructed twice daily. 3 Each 3 06/30/2021 Active Start: 06-30-2021 take 1 puff(s) by in halation twice daily fluticasone-salmeterol (ADVAIR DISKUS) 500-50 mcg/dose dsdv Inhale 1 Puff as instructed twice daily. 3 Each 3 06/30/2021 Active Comment on above: Inhale 1 Puff as ins tructed twice daily. Inhale 1 Puff as ins tructed two times a day. levETIRAcetam 500 mg oral tablet (20 sources) Start: 08-29-19 End: 03-05-20 take 1 tablet by mouth twice daily Levetiracetam 500 MG tablet Active 500 mg PO TWICE A DAY August 29, 2017 1:00am Comment on above: Take 1 tablet by cj th twice daily. Take 1 tablet by cj th two times a day. vitamin b12 1 mg oral tablet (5 sources) Vitamin B12 Start: 04-05-20 take 1 tablet by mouth at breakfast Cyanocobalamin (Vitamin B-12) 1,000 mcg tablet Active 1000 ug PO WITH BREAKFAST 0 30 April 05, 2024 12:00am Completed/Discontinued Medications Medication Drug Class(es) Dates Sig (Normalized) Sig (Original) acetaminophen 650 mg rectal suppository (7 sources) Start: 08-02-2013 End: 09-01-2013 take 650 mg rectal route every eight hours as needed for fever Acetaminophen 650 MG Suppos. Discontinued 650 mg RECTAL Q8H as needed for Fever August 02, 2013 1:00am September 01, 2013 11:49am acetaminophen 325 mg / oxyCODONE hydrochloride 5 mg oral tablet (7 sources) Opioid Agonist Start: 08-02-2013 End: 08-23-2013 Oxycodone-Acetamino phen 1 TABLET tablet Discontinued 1 {tbl} PO EVERY 6 HOURS NEEDED as needed for PAIN August 02, 2013 1:00am August 23, 2013 7:04pm Start: 08-02-2013 End: 08-23-2013 take 1 tablet by mouth every six hours as needed Oxycodone-Acetaminophen Discontinued 1 TABLET PO EVERY 6 HOURS NEEDED August 02, 2013 12:00am August 23, 2013 6:04pm Albuterol Sulfate 1 PUFF inhaler (5 sources) Start: 09-01-2017 End: 03-28-2024 Albuterol Sulfate 1 PUFF inhaler Discontinued 2 NMA INHALATION EVERY 4 HOURS NEEDED as needed for wheezing/shortness of breath September 01, 2017 1:00am March 28, 2024 12:48pm Budesonide-Formotero l (7 sources) Corticosteroid, beta2-Adrenergic Agonist Start: 09-01-2017 End: 06-23-2023 Budesonide-Formoterol 6 GM HFA aerosol inhaler Discontinued 10.2 g IH TWICE A DAY September 01, 2017 1:00am June 23, 2023 9:20pm Start: 09-01-2017 End: 06-23-2023 take 10.2 g by inhalation twice daily Budesonide-Formoterol Discontinued 10.2 GM IH TWICE A DAY 1 September 01, 2017 12:00am June 23, 2023 8:20pm Start: 09-01-2017 take 10.2 g by inhal ation twice daily Budesonide-Formoterol Active 10.2 GM IH TWICE A DAY 1 September 01, 2017 1:00am ipratropium bromide 0.042 mg/actuat metered dose nasal spray (8 sources) Anticholinergic Start: 09-01-2017 End: 11-08-2021 take 2 spray(s) nasal route three times daily ipratropium bromide (ATROVENT) 42 mcg (0.06 %) nasal spray use 2 (TWO) sprays in each nostril THREE TIMES DAILY. 0 09/01/2017 11/08/2021 Discontinued Start: 09-01-2017 End: 06-23-2023 Ipratropium [place] 1 SPRAY spray,non-aerosol Discontinued 2 NMA NASAL THREE TIMES A DAY 1 September 01, 2017 1:00am June 23, 2023 9:21pm Start: 09-01-2017 End: 06-23-2023 Ipratropium [place] Disconti nued 2 SPRAY NASAL THREE TIMES A DAY 1 September 01, 2017 12:00am June 23, 2023 8:21pm levothyroxine sodium 0.125 mg oral tablet (20 sources) l-Thyroxine Start: 06-25-2023 End: 03-28-2024 take 1 tablet by mouth once daily Levothyroxine 125 mcg Tablet Discontinued 125 ug PO DAILY@0600 30 30 June 25, 2023 1:00am March 28, 2024 12:47pm Repeat TSH and free T4 after 6 weeks Start: 05-24-2022 End: 03-04-2025 take 1 tablet by mouth once daily Levothyroxine 100 mc g tablet Discontinued 100 ug PO DAILY June 23, 2023 1:00am June 25, 2023 1:25pm Start: 03-29-2021 End: 05-02-2023 take 1 tablet by mouth once daily for thyroid dysfunction levothyroxine (LEVOXYL) 88 mcg tablet Indications: Hypothyroidism, acquired Take 1 tablet by mouth once daily. Take on empty stomach. For Thyroid 90 tablet 3 05/02/2022 05/24/2022 Discontinued Comment on above: Take 1 tablet by cj once daily. Take on empty stomach. For Thyroid meclizine hydrochloride 25 mg oral tablet (6 sources) Antiemetic Start: 06-25-20 End: 03-28-20 24 take 1 tablet by mouth three times daily as needed for dizziness Meclizine 25 mg Tablet Discontinued 25 mg PO 3 TIMES DAILY NEEDED as needed for Dizziness June 25, 2023 1:00am March 28, 2024 12:47pm moxifloxacin 400 mg oral tablet (7 sources) Quinolone Antimicrobial Start: 08-02-19 End: 08-23-19 14 take 1 tablet by mouth once daily Moxifloxacin Hcl (Avelox) 400 MG tablet Discontinued 400 mg PO DAILY August 02, 2013 1:00am August 23, 2013 7:04pm pantoprazole 20 mg delayed release oral tablet (7 sources) Proton Pump Inhibitor Start: 08-02-19 14 End: 08-23-19 14 take 1 tablet by mouth once daily Pantoprazole 20 MG tablet Discontinued 20 mg PO DAILY August 02, 2013 1:00am August 23, 2013 7:04pm predniSONE 20 mg oral tablet (20 sources) Start: 10-20-19 End: 06-23-20 take 3 tablets by mouth once daily at mealtime Prednisone 20 MG tablet Discontinued 60 mg PO DAILY October 19, 2018 12:00am June 23, 2023 9:21pm With food Start: 10-19-2018 End: 06-23-2023 take 60 mg by mouth once daily at mealtime Prednisone Discontinued 60 MG PO DAILY October 18, 2018 11:00pm June 23, 2023 8:21pm With food Start: 07-20-2018 End: 07-27-2018 take 2 tablets by mouth once daily at mealtime Prednisone 20 MG tablet Discontinued 40 mg PO DAILY July 20, 2018 1:00am July 26, 2018 1:00am July 27, 2018 1:11am With food Start: 07-20-2018 End: 07-27-2018 take 40 mg by mouth once daily at mealtime Prednisone Discontinued 40 MG PO DAILY July 20, 2018 12:00am July 27, 2018 12:11am With food Start: 09-01-2017 End: 06-23-2023 Prednisone 10 MG tablet Discontinued 10 mg PO DIRECTED September 01, 2017 1:00am June 23, 2023 9:21pm TAKE 4 TABLETS BY MOUTH DAILY WITH FOOD FOR 3 DAYS, THEN TAKE 3 TABLETS BY MOUTH DAILY WITH FOOD FOR 3 DAYS, THEN TAKE 2 TABLETS BY MOUTH DAILY WITH FOOD FOR 3 DAYS, THEN TAKE 1 TABLETS BY MOUTH DAILY WITH FOOD FOR 3 DAYS, THEN STOP promethazine hydrochloride 25 mg oral tablet (7 sources) Phenothiazine Start: 08-02-2013 End: 09-01-2013 take 1 tablet by mouth every four hours as needed for nausea Promethazine 25 MG tablet Discontinued 25 mg PO EVERY 4 HOURS NEEDED as needed for Nausea August 02, 2013 1:00am September 01, 2013 11:49am warfarin sodium 6 mg oral tablet (14 sources) Vitamin K Antagonist Start: 08-23-2013 End: 09-01-2013 Warfarin (Jantoven) 5 MG tablet Discontinued 5 mg PO [id number]@1700 August 23, 2013 1:00am September 01, 2013 11:48am Start: 08-23-2013 End: 09-01-2013 Warfarin (Jantoven) 6 MG tab let Discontinued 6 mg PO SuSa@1700 August 23, 2013 1:00am September 01, 2013 11:48am Problems Active Problems Problem Classification Problem Date Documented Da te Episodic/Chronic Acute and unspecified renal failure (7 sources) Acute renal failure syndrome; Translations: [Acute kidney failure, unspecified] 08-30-2017 Episodic Chronic obstructive pulmonary disease and bronchiectasis (20 sources) Emphysematous bronchitis; Translations: [Chronic obstructive pulmonary disease, unspecified] Onset: 12-02-2016 12-02-2016 Chronic Conditions associated with dizziness or vertigo (18 sources) Dizziness; Translations: [Dizziness and giddiness] Onset: 07-14-2023 06-23-2023 Episodic Delirium, dementia, and amnestic and other cognitive disorders (1 source) Age-related physical debility; Translations: [Age-related physical debility] Onset: 01-01-2025 Chronic Disorders of lipid metabolism (1 source) Hyperlipidemia; Translations: [Hyperlipidemia, unspecified] 05-17-2023 Chronic Epilepsy; convulsions (20 sources) Generalized convulsive epilepsy; Translations: [Generalized idiopathic epilepsy and epileptic syndromes, not intractable, without status epilepticus] Onset: 10-02-2006 09-22-2016 Chronic Fracture of lower limb (7 sources) Closed fracture of fifth metatarsal bone; Translations: [Nondisplaced fracture of fifth metatarsal bone, right foot, initial encounter for closed fracture] 02-24-2023 Episodic Immunizations and screening for infectious disease (3 sources) Needs influenza immunization; Translations: [Encounter for immunization] Episodic Noninfectious gastroenteritis (7 sources) Gastroenteritis; Translations: [Noninfective gastroenteritis and colitis, unspecified] 08-30-2017 Episodic Other connective tissue disease (1 source) Muscle wasting and atrophy, not elsewhere classified, right lower leg; Translations: [Muscle wasting and atrophy, not elsewhere classified, right lower leg] Onset: 01-01-2025 Episodic Other connective tissue disease (1 source) Muscle wasting and atrophy, not elsewhere classified, left lower leg; Translations: [Muscle wasting and atrophy, not elsewhere classified, left lower leg] Onset: 01-01-2025 Episodic Other lower respiratory disease (2 sources) Multiple nodules of lung; Translations: [Other nonspecific abnormal finding of lung field] Episodic Other lower respiratory disease (1 source) Cough; Translations: [Cough, unspecified type] Episodic Other lower respiratory disease (4 sources) Dyspnea; Translations: [Shortness of breath] Episodic Other lower respiratory disease (7 sources) Hypoxia; Translations: [Hypoxemia] 09-29-2017 Episodic Other nervous system disorders (1 source) Polyneuropathy, unspecified; Translations: [Neuropathy] Onset: 07-19-2023 Chronic Other nervous system disorders (20 sources) H/O: brain disorder; Translations: [Personal history of other diseases of the nervous system and sense organs] Onset: 03-15-2018 03-15-2018 Episodic Other nervous system disorders (7 sources) H/O: epilepsy; Translations: [Personal history of other diseases of the nervous system and sense organs] 09-28-2017 Episodic Other nervous system disorders (1 source) Personal history of other diseases of the nervous system and sense organs; Translations: [Personal history of other disorders of nervous system and sense organs] 06-25-2023 Episodic Other nervous system disorders (1 source) Unspecified abnormalities of gait and mobility; Translations: [Abnormality of gait] Onset: 07-14-2023 Episodic Other nervous system disorders (2 sources) Other symbolic dysfunctions; Translations: [Other symbolic dysfunctions] Onset: 01-01-2025 Episodic Other nutritional; endocrine; and metabolic disorders (20 sources) Obese class II; Translations: [Obesity, unspecified] Onset: 03-15-2018 03-15-2018 Chronic Other screening for suspected conditions (not mental disorders or infectious disease) (3 sources) Raised prostate specific antigen; Translations: [Elevated prostate specific antigen [PSA]] Episodic Other upper respiratory infections (1 source) Chronic sinusitis; Translations: [Chronic sinusitis, unspecified] Chronic Other upper respiratory infections (7 sources) Posterior rhinorrhea; Translations: [Postnasal drip] 09-28-2017 Episodic Paralysis (20 sources) Right hemiparesis; Translations: [Spastic hemiplegia affecting right dominant side] Onset: 06-27-2014 06-27-2014 Chronic Phlebitis; thrombophlebitis and thromboembolism (13 sources) Deep venous thrombosis of lower extremity; Translations: [Acute embolism and thrombosis of unspecified deep veins of unspecified proximal lower extremity] Onset: 09-05-2013 Resolved: 06-27-2014 09-28-2017 Episodic Comment on above: 2012 Thyroid disorders (20 sources) Acquired hypothyroidism; Translations: [Hypothyroidism, unspecified] Onset: 09-07-2017 09-07-2017 Chronic Past or Other Problems Problem Classification Problem Date Documented Date Episodic/Chronic Cardiac dysrhythmias (10 sources) Palpitations; Translations: [Palpitations] Onset: 08-28-2023 08-28-2023 Episodic Diabetes mellitus without complication (1 source) Other abnormal glucose; Translations: [Elevated glucose] Onset: 10-20-2023 Episodic Intestinal obstruction without hernia (6 sources) Partial obstruction of small bowel; Translations: [Partial intestinal obstruction, unspecified as to cause] Onset: 06-27-2014 Resolved: 12-02-2016 12-02-2016 Episodic Malaise and fatigue (9 sources) Asthenia; Translations: [Weakness] Onset: 04-05-2024 06-23-2023 Episodic Other and unspecified benign neoplasm (20 sources) Benign neoplasm of colon; Translations: [Benign neoplasm of colon, unspecified] Onset: 02-05-2010 02-05-2010 Episodic Other nervous system disorders (20 sources) Impairment of balance; Translations: [Other abnormalities of gait and mobility] Onset: 10-21-2016 10-21-2016 Episodic Other nervous system disorders (8 sources) Abnormal gait; Translations: [Unspecified abnormalities of gait and mobility] Onset: 07-14-2023 07-14-2023 Episodic Other nervous system disorders (2 sources) Other abnormalities of gait and mobility; Translations: [Balance problem] Onset: 07-14-2023 Episodic Spondylosis; intervertebral disc disorders; other back problems (1 source) Spinal stenosis, cervical region; Translations: [Spinal stenosis of cervical region] Onset: 08-15-2023 Episodic Syncope (11 sources) Syncope and collapse; Translations: [Syncope and collapse] Onset: 08-28-2023 08-28-2023 Episodic Unclassified (6 sources) ASA CLASS III Onset: 05-10-2002 Resolved: 10-30-2018 10-30-2018 Results Test Name Value Interpretation Reference Range Facility Bilirubin directOrdered By: Jolly Macdonald on 12-17-2024 Bilirubin.direct [Mass/Vol] mg/dL 0.00-0.30 [facility] Bilirubin, totalOrdered By: Jolly Macdonald on 12-17-2024 Bilirubin [Mass/Vol] 0.19 mg/dL 0.00-1.30 [facility] - Chemistry and C hemistry - challengeOrdered By: Jolly Macdonald on 12-17-2024 AST [Catalytic activity/Vol] 18 U/L <38 [facility] Serum globulin measurementOr dered By: Jolly Macdonald on 12-17-2024 Globulin (S) [Mass/Vol] 2.9 g/dL 2.2-4.2 [facility] Serum or plasma alanine ty otransferase (ALT) measurementOrdered By: Jolly Macdonald on 12-17-2024 ALT [Catalytic activity/Vol] 18 U/L <47 [facility] Serum or plasma albumin marvin urement (mass/volume)Ordered By: Jolly Macdonald on 12-17-2024 Albumin [Mass/Vol] 3.7 g/dL 3.4-4.8 [facility] Serum or plasma alkaline macho sphatase measurementOrdered By: Jolly Macdonald on 12-17-2024 ALP [Catalytic activity/Vol] 85 U/L 40-129 [facility] Total proteinOrdered By: Salvador Macdonald on 12-17-2024 Protein [Mass/Vol] 6.6 g/dL 5.9-8.4 [facility] Vitamin B12 ser/plasOrdered By: Jolly Macdonald on 12-17-2024 Cobalamin (Vitamin B12) [Mass/Vol] 455 pg/mL 180-4 [facility] TSH DL <= 0.005 mIU/L QnOrde red By: Micaela Holder on 11-26-2024 TSH Qn 3.470 uIU/mL 0.300-4.200 [facility] Bilirubin directOrdered By: Jolly Macdonald on 11-19-2024 Bilirubin.direct [Mass/Vol] 0.11 mg/dL 0.00-0.30 [facility] Bilirubin, totalOrdered By: Jolly Macdonald on 11-19-2024 Bilirubin [Mass/Vol] 0.20 mg/dL 0.00-1.30 [facility] - Chemistry and C hemistry - challengeOrdered By: Jolly Macdonald on 11-19-2024 AST [Catalytic activity/Vol] 18 U/L <38 [facility] Serum globulin measurementOr dered By: Jolly Macdonald on 11-19-2024 Globulin (S) [Mass/Vol] 3.1 g/dL 2.2-4.2 [facility] Serum or plasma alanine ty otransferase (ALT) measurementOrdered By: Jolly Macdonald on 11-19-2024 ALT [Catalytic activity/Vol] 12 U/L <47 [facility] Serum or plasma albumin marvin urement (mass/volume)Ordered By: Jolly Macdonald on 11-19-2024 Albumin [Mass/Vol] 3.6 g/dL 3.4-4.8 [facility] Serum or plasma alkaline macho sphatase measurementOrdered By: Jolly Macdonald on 11-19-2024 ALP [Catalytic activity/Vol] 75 U/L 40-129 [facility] Total proteinOrdered By: Salvador Macdonald on 11-19-2024 Protein [Mass/Vol] 6.7 g/dL 5.9-8.4 [facility] Vitamin B12 ser/plasOrdered By: Jolly Macdonald on 11-19-2024 Cobalamin (Vitamin B12) [Mass/Vol] 521 pg/mL 180-914 [facility] Absolute lymphocyte countOrd ered By: Jolly Macdonald on 10-15-2024 Lymphocytes Auto (Unsp spec) [#/Vol] 1.44 10*3/uL 0.83-4.51 [facility] Absolute neutrophil countOrd ered By: Jolly Macdonald on 10-15-2024 Neutrophils (Bld) [#/Vol] 2.5 10*3/uL 2.0-7.7 [facility] Anion gap in Serum or Plasma Ordered By: Jolly Macdonald on 10-15-2024 Anion gap [Moles/Vol] 11 mmol/L 5-15 [facility] Automated lymphocyte count a s percentage of total leukocytesOrdered By: Jolly Macdonald on 10-15-2024 Lymphocytes/100 WBC Auto (Unsp spec) 28.9 % 19-41 [facility] BUN/creatinine ratioOrdered By: Jolly Macdonald on 10-15-2024 Urea nitrogen/Creatinine [Mass ratio] 12.1 mg/mg 10-20 [facility] Basophil percentageOrdered B y: Jolly Macdonald on 10-15-2024 Basophils/100 WBC (Bld) 0.8 % 0-1 [facility] Bilirubin directOrdered By: Jolly Macdonald on 10-15-2024 Bilirubin.direct [Mass/Vol] 0.09 mg/dL 0.00-0.30 [facility] Bilirubin, totalOrdered By: Jolly Macdonald on 10-15-2024 Bilirubin [Mass/Vol] 0.24 mg/dL 0.00-1.30 [facility] Carbon dioxide, total [Moles /volume] in Central venous bloodOrdered By: Jolly Macdonald on 10-15-2024 CO2 [Moles/Vol] 21.3 mmol/L 21.0-32.0 [facility] Chloride assayOrdered By: Saroj Macdonald on 10-15-2024 Chloride [Moles/Vol] 108 mmol/L 98-108 [facility] Eosinophil percentageOrdered By: Jolly Macdonald on 10-15-2024 Eosinophils/100 WBC (Bld) 7.6 % High 0-5 [facility] Erythrocyte distribution wid th (RBC) [Ratio]Ordered By: Jolly Macdonald on 10-15-2024 Erythrocyte distribution width (RBC) [Entitic vol] 45.4 fL High 35.1-43.9 [facility] Erythrocyte distribution wid th ratioOrdered By: Jolly Macdonald on 10-15-2024 Erythrocyte distribution width (RBC) [Ratio] 12.7 % 11.6-14.6 [facility] Erythrocyte distribution wid th standard deviationOrdered By: Jolly Macdonald on 10-15-2024 Erythrocyte distribution width (RBC) [Ratio] 45.4 fl High 35.1-43.9 [facility] GFR/1.73 sq M.predicted yang g non-blacks MDRD (S/P/Bld) [Vol rate/Area]Ordered By: Jolly Macdonald on 10-15-2024 Estimated GFR (MDRD) Non-Af Amer 78 >60 [facility] Comment on above: mL/min/1.73m2 CKD-EP I Creatinine Equation (2020) Glomerular filtration rate ( GFR) estimation/1.73 sq m using serum, plasma, or whole bOrdered By: Jolly Macdonald on 10-15-2024 GFR/1.73 sq M.predicted among non-blacks MDRD (S/P/Bld) [Vol rate/Area] 78 mL/min/{1.73_m2} >60 [facility] Comment on above: mL/min/1.73m2 CKD-EP I Creatinine Equation (2020) Hematocrit Auto (Bld) [Volum e fraction]Ordered By: Jolly Macdonald on 10-15-2024 Hematocrit (Bld) [Volume fraction] 33.6 % Low 40-54 [facility] Hemoglobin measurementOrdere d By: Jolly Macdonald on 10-15-2024 Hemoglobin (Bld) [Mass/Vol] 11.0 g/dL Low 13.0-16.5 [facility] Immature granulocytes/100 WB C Auto (Bld)Ordered By: Jolly Macdonald on 10-15-2024 Immature granulocytes/100 WBC (Bld) 0.400 % 0.0-0.9 [facility] Comment on above: IG% - Immature Granu locytes (promyelocytes, myelocytes and metamyelocytes) > 1% indicates that a LEFT SHIFT is Present. Laboratory - Chemistry and C hemistry - challengeOrdered By: Jolly Macdonald on 04-01-2025 AST [Catalytic activity/Vol] 19 U/L <38 [facility] Lymphocytes Auto (Unsp spec) [#/Vol]Ordered By: Jolly Macdonald on 10-15-2024 Lymphocytes (Bld) [#/Vol] 1.44 10*3/uL 0.83-4.51 [facility] Lymphocytes/100 WBC Auto (Un sp spec)Ordered By: Jolly Macdonald on 10-15-2024 Lymphocytes/100 WBC (Bld) 28.9 % 19-41 [facility] MCV (mean corpuscular volume ) determinationOrdered By: Jolly Macdonald on 10-15-2024 MCV (RBC) [Entitic vol] 98.2 fL High 80-94 [facility] Mean corpuscular hemoglobin (MCH) determinationOrdered By: Jolly Macdonald on 10-15-2024 MCH (RBC) [Entitic mass] 32.2 pg High 27.0-32.0 [facility] Mean corpuscular hemoglobin concentration (MCHC) determinationOrdered By: Jolly Macdonald on 10-15-2024 MCHC (RBC) [Mass/Vol] 32.7 g/dL 32-36 [facility] Mean platelet volume determi nationOrdered By: Jolly Macdonald on 10-15-2024 Platelet mean volume (Bld) [Entitic vol] 10.4 fL 6.2-12.0 [facility] Monocyte percentageOrdered B y: Jolly Macdonald on 10-15-2024 Monocytes/100 WBC (Bld) 13.1 % High 0-10 [facility] Neutrophil percentageOrdered By: Jolly Macdonald on 10-15-2024 Neutrophils/100 WBC (Bld) 49.2 % 47-70 [facility] Nucleated red blood cell per centageOrdered By: Jolly Macdonald on 10-15-2024 Nucleated RBC/100 WBC (Bld) [Ratio] 0 % 0-5 [facility] Platelet countOrdered By: Saroj Macdonald on 10-15-2024 Platelets (Bld) [#/Vol] 226 10*3/uL 150-450 [facility] Potassium (Unsp spec) [Mass/ Vol]Ordered By: Jolly Macdonald on 10-15-2024 Potassium [Moles/Vol] 4.0 mmol/L 3.3-5.1 [facility] Potassium measurement (mass/ volume)Ordered By: Jolly Macdonald on 10-15-2024 Potassium (Unsp spec) [Mass/Vol] 4.0 mmol/L 3.3-5.1 [facility] RBC Auto (Bld) [#/Vol]Ordere d By: Jolly Macdonald on 10-15-2024 RBC (Bld) [#/Vol] 3.42 10*6/uL Low 4.6-6.2 [facility] Serum creatinine measurement (mass/volume)Ordered By: Jolly Macdonald on 10-15-2024 Creatinine [Mass/Vol] 1.01 mg/dL 0.70-1.20 [facility] Serum globulin measurementOr dered By: Jolly Macdonald on 10-15-2024 Globulin (S) [Mass/Vol] 2.9 g/dL 2.2-4.2 [facility] Serum glucose measurement (m ass/volume)Ordered By: Jolly Macdonald on 10-15-2024 Glucose [Mass/Vol] 102 mg/dL High 70-99 [facility] Serum or plasma alanine ty otransferase (ALT) measurementOrdered By: Jolly Macdonald on 10-15-2024 ALT [Catalytic activity/Vol] 15 U/L <47 [facility] Serum or plasma albumin marvin urement (mass/volume)Ordered By: Jolly Macdonadl on 10-15-2024 Albumin [Mass/Vol] 3.5 g/dL 3.4-4.8 [facility] Serum or plasma alkaline mahco sphatase measurementOrdered By: Jolly Macdonald on 10-15-2024 ALP [Catalytic activity/Vol] 79 U/L 40-129 [facility] Serum or plasma calcium marvin urement (mass/volume)Ordered By: Jolly Macdonald on 10-15-2024 Calcium [Mass/Vol] 8.6 mg/dL 7.6-11.0 [facility] Serum or plasma urea nitroge n measurement (mass/volume)Ordered By: Jolly Macdonald on 10-15-2024 Urea nitrogen [Mass/Vol] 12 mg/dL 4-19 [facility] Sodium levelOrdered By: Larissa Macdonald on 10-15-2024 Sodium [Moles/Vol] 141 mmol/L 133-145 [facility] TSH DL <= 0.005 mIU/L QnOrde red By: Jolly Macdonald on 10-15-2024 Thyroid Stimulating Hormone (TSH) 1.270 uIU/mL 0.300-4.200 [facility] TSH Qn 1.270 uIU/mL 0.300-4.200 [facility] Total proteinOrdered By: Salvador Macdonald on 10-15-2024 Protein [Mass/Vol] 6.4 g/dL 5.9-8.4 [facility] Vitamin B12 ser/plasOrdered By: Jolly Macdonald on 10-15-2024 Cobalamin (Vitamin B12) [Mass/Vol] 533 pg/mL 180-914 [facility] White blood cell (WBC) count Ordered By: Jolly Macdonald on 10-15-2024 WBC (Bld) [#/Vol] 5.0 10*3/uL 4.4-11.0 [facility] Calculated very low density lipoprotein (VLDL) cholesterol measurementOrdered By: Micaela Holder on 10-04-2024 Calculated very low density lipoprotein (VLDL) cholesterol measurement 9 mg/dL 5-40 [facility] VLDL Cholesterol 9 mg/dL 5-40 [facility] LDL calc ser/plasOrdered By: Micaela Holder on 10-04-2024 Cholesterol in LDL [Mass/Vol] 113 mg/dL [facility] Comment on above: Xertjdflsk=383-714 m g/dL & Higher Rlyy=410 mg/dL or greater LDL Cholesterol, Calculated 113 mg/dL [facility] Comment on above: Rfbtmayrvw=466-160 m g/dL & Higher Glis=990 mg/dL or greater Screening total cholesterol/ high density lipoprotein (HDL) cholesterol ratioOrdered By: Micaela Holder on 10-04-2024 Cholesterol.total/Choles terol in HDL [Mass ratio] 2.88 {ratio} [facility] Serum or plasma cholesterol in HDL measurement (mass/volume)Ordered By: Micaela Holder on 10-04-2024 Cholesterol in HDL [Mass/Vol] 65 mg/dL >40 [facility] Comment on above: National Cholesterol Education Program (NCEP) guidelines:<40 mg/dL: Low HDL-cholesterol (major risk factor for CHD)>= 60 mg/dL: High HDL-cholesterol (negative risk factor for CHD)HDL-cholesterol is affected by a number of factors, e.g. smoking, exercise, hormones, sex and age. Serum or plasma cholesterol measurement (mass/volume)Ordered By: Micaela Holder on 10-04-2024 Cholesterol [Mass/Vol] 187 mg/dL <201 [facility] Comment on above: Cholesterol level, D esirable <200 mg/dLBorderline high cholesterol 200-239 mg/dLHigh cholesterol >=240 mg/dLRecommendations of the NCEP Adult Treatment Panel for the following risk-cutoff thresholds for the [place] population. Triglycerides measurementOrd ered By: Micaela Holder on 10-04-2024 Triglyceride [Mass/Vol] 46 mg/dL <199 [facility] Comment on above: The drugs N-Acetylcy steine and Metamizole may falsely depress this assay. Normal range: <150 mg/dLBorderline High: 150-199 mg/dLHigh: 200-499 mg/dLVery High: >500 mg/dL Bilirubin directOrdered By: Micaela Holder on 09-17-2024 Bilirubin.direct [Mass/Vol] 0.09 mg/dL 0.00-0.30 [facility] Bilirubin, totalOrdered By: Micaela Holder on 09-17-2024 Bilirubin [Mass/Vol] 0.18 mg/dL 0.00-1.30 [facility] - Chemistry and C hemistry - challengeOrdered By: Micaela Holder on 09-17-2024 AST [Catalytic activity/Vol] 19 U/L <38 [facility] Serum globulin measurementOr dered By: Micaela Holder on 09-17-2024 Globulin (S) [Mass/Vol] 3.0 g/dL 2.2-4.2 [facility] Serum or plasma alanine ty otransferase (ALT) measurementOrdered By: Micaela Holder on 09-17-2024 ALT [Catalytic activity/Vol] 15 U/L <47 [facility] Serum or plasma albumin marvin urement (mass/volume)Ordered By: Micaela Holder on 09-17-2024 Albumin [Mass/Vol] 3.4 g/dL 3.4-4.8 [facility] Serum or plasma alkaline macho sphatase measurementOrdered By: Micaela Holder on 09-17-2024 ALP [Catalytic activity/Vol] 74 U/L 40-129 [facility] Total proteinOrdered By: Frank Holder on 09-17-2024 Protein [Mass/Vol] 6.4 g/dL 5.9-8.4 [facility] Vitamin B12 ser/plasOrdered By: Micaela Holder on 09-17-2024 Cobalamin (Vitamin B12) [Mass/Vol] 603 pg/mL 180-914 [facility] Serum or plasma thyroid stim ulating hormone (TSH) measurement (units/volume)Ordered By: Micaela Holder on 09-03-2024 TSH Qn 18.400 uIU/mL High 0.358-3.740 [facility] TSH QnOrdered By: Micaela Holder on 09-03-2024 Thyroid Stimulating Hormone (TSH) 18.400 uIU/mL High 0.358-3.740 [facility] Bilirubin directOrdered By: Micaela Holder on 08-20-2024 Bilirubin.direct [Mass/Vol] 0.11 mg/dL 0.00-0.30 [facility] Bilirubin, totalOrdered By: Micaela Holder on 08-20-2024 Bilirubin [Mass/Vol] 0.30 mg/dL 0.20-1.00 [facility] Comment on above: For patients on eltr ombopag therapy, use of Dimension [place] TBIL is not recommended. Laboratory - Chemistry and C hemistry - challengeOrdered By: Micaela Holder on 08-20-2024 AST [Catalytic activity/Vol] 24 U/L 15-37 [facility] Serum globulin measurementOr dered By: Micaela Holder on 08-20-2024 Globulin (S) [Mass/Vol] 3.8 g/dL 2.2-4.2 [facility] Serum or plasma alanine ty otransferase (ALT) measurementOrdered By: Micaela Holder on 08-20-2024 ALT [Catalytic activity/Vol] 38 U/L 16-61 [facility] Serum or plasma albumin marvin urement (mass/volume)Ordered By: Micaela Holedr on 08-20-2024 Albumin [Mass/Vol] 3.0 g/dL Low 3.2-5.0 [facility] Serum or plasma alkaline macho sphatase measurementOrdered By: Micaela Holder on 08-20-2024 ALP [Catalytic activity/Vol] 86 U/L 45-117 [facility] Total proteinOrdered By: Frank Holder on 08-20-2024 Protein [Mass/Vol] 6.8 g/dL 6.4-8.2 [facility] Vitamin B12 measurementOrder ed By: Micaela Holder on 08-20-2024 Cobalamin (Vitamin B12) [Mass/Vol] 1165 pg/mL High 211-911 [facility] 13-JC-Frbzsle DOrdered By: Haroon Holder on 07-23-2024 Vitamin D 25-Hydroxy 46.8 ng/mL [facility] Comment on above: Vitamin D 25(OH) Sta tus Range Deficiency <20 ng/mL (50nmol/L) Insufficiency 20 - 30 ng/mL (50 - 75 nmol/L) Sufficiency 30 - 100 ng/mL (75 - 250 nmol/L) Toxicity >100 ng/mL (>250 nmol/L) Bilirubin directOrdered By: Micaela Holder on 07-23-2024 Bilirubin.direct [Mass/Vol] 0.06 mg/dL 0.00-0.30 [facility] Bilirubin, totalOrdered By: Micaela Holder on 07-23-2024 Bilirubin [Mass/Vol] 0.30 mg/dL 0.20-1.00 [facility] Comment on above: For patients on eltr ombopag therapy, use of Dimension [place] TBIL is not recommended. Laboratory - Chemistry and C hemistry - challengeOrdered By: Micaela Holder on 07-23-2024 AST [Catalytic activity/Vol] 16 U/L 15-37 [facility] LevetiracetamOrdered By: Frank Holder on 07-23-2024 Levetiracetam (Keppra) Level 14.1 ug/mL 10.0-40.0 [facility] Comment on above: Performed at: [facility] [place]i [employer]ienne [address] [id number] Director: Daniel Bailey MD, Phone: [phone] Serum globulin measurementOr dered By: Micaela Holder on 07-23-2024 Globulin (S) [Mass/Vol] 3.7 g/dL 2.2-4.2 [facility] Serum or plasma alanine ty otransferase (ALT) measurementOrdered By: Micaela Holder on 07-23-2024 ALT [Catalytic activity/Vol] 26 U/L 16-61 [facility] Serum or plasma albumin marvin urement (mass/volume)Ordered By: Micaela Holder on 07-23-2024 Albumin [Mass/Vol] 2.9 g/dL Low 3.2-5.0 [facility] Serum or plasma alkaline macho sphatase measurementOrdered By: Micaela Holder on 07-23-2024 ALP [Catalytic activity/Vol] 70 U/L 45-117 [facility] TSH QnOrdered By: Micaela Holder on 07-23-2024 Thyroid Stimulating Hormone (TSH) 18.700 uIU/mL High 0.358-3.740 [facility] Total proteinOrdered By: Frank Holder on 07-23-2024 Protein [Mass/Vol] 6.6 g/dL 6.4-8.2 [facility] Vitamin B12 measurementOrder ed By: Micaela Holder on 07-23-2024 Cobalamin (Vitamin B12) [Mass/Vol] 1011 pg/mL High 211-911 [facility] carBAMazepine [Mass/Vol]Orde red By: Micaela Holder on 07-23-2024 Carbamazepine (Tegretol) Level 9.6 ug/mL 4.0-12.0 [facility] CNPNon 07-02-2024 [facility] Telephone [facility] J LUIS MADERA ([id number]) 1950 M Date Time Provider Department 07/02[facility]24 [facility] During your visit today, we recorded the following information about you: Norma Rogers MA 07/02/2024 9:25 AM Signed Type of letter/form/fax request - order from [facility] Form received from fax on 1 floor and placed on MD desk (Dr. Patel) for completion. Completed form needs to be faxed to [facility] at [phone]. Route to [place] when form completed for processing Julieta Mckay MA 07/02/2024 11:53 AM Signed Form signed and faxed back to number below. Julieta Mckay MA Allergies As of Date: 07/02/2024 Noted Allergy Reaction SEASONAL ALLERGIES 03/13/2012 14 - Other: See Comments Date Reviewed: 10/20/2023 Reviewed by: Julieta Mckay MA - Fully Assessed Reason for Visit: Forms [333] Cmt: 90 day order for [facility] Prescriptions as of 07/02/2024 - levETIRAcetam (KEPPRA) 500 mg tablet TAKE 1 TABLET TWICE A DAY. - carBAMazepine (TEGRETOL) 200 mg tablet one tablet every AM, and 2 every evening - levothyroxine (LEVOXYL) 100 mcg tablet Take 1 tablet by mouth once daily. Take on empty stomach. For Thyroid - fluticasone-salmetero l (ADVAIR DISKUS) 500-50 mcg/dose dsdv Inhale 1 Puff as instructed two times a day. 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] 12/02/2016 Hypothyroidism, acquired [E03.9] 09/07/2017 History of brain disorder [Z86.69] 03/15/2018 Obesity, Class II, BMI 35-39.9 [E66.812] 03/15/2018 Dizziness [R42] 07/14/2023 Balance problem [R26.89] 07/14/2023 Abnormality of gait [R26.9] 07/14/2023 Vasovagal syncope [R55] 08/28/2023 Palpitations [R00.2] 08/28/2023 Encounter Status:Closed by JULIETA MCKAY on 07/02/24 [facility] 05-09-2024 CNPN Telephone [facility] J LUIS MADERA ([id number]) 1950 M Date Time Provider Department 05/09/24 [facility] PAT[facility] During your visit today, we recorded the following information about you: Julieta Mckay MA 05/09/2024 1:27 PM Signed Type of form: 90 day order for Adult Day Care Services through [facility] Form received via fax When form is completed, Fax form to [phone] Form has been forwarded to Physician Desk: ALLISON Velazquez Kathryn, MA 05/10/2024 9:00 AM Signed Faxed. Norma Rogers MA Allergies As of Date: 05/09/2024 Noted Allergy Reaction SEASONAL ALLERGIES 03/13/2012 14 - Other: See Comments Date Reviewed: 10/20/2023 Reviewed by: Julieta Mckay MA - Fully Assessed Reason for Visit: Forms [913] Cmt: [place] Prescriptions as of 05/10/2024 - levETIRAcetam (KEPPRA) 500 mg tablet TAKE 1 TABLET TWICE A DAY. - carBAMazepine (TEGRETOL) 200 mg tablet one tablet every AM, and 2 every evening - levothyroxine (LEVOXYL) 100 mcg tablet Take 1 tablet by mouth once daily. Take on empty stomach. For Thyroid - fluticasone-salmetero l (ADVAIR DISKUS) 500-50 mcg/dose dsdv Inhale 1 Puff as instructed two times a day. 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] 12/02/2016 Hypothyroidism, acquired [E03.9] 09/07/2017 History of brain disorder [Z86.69] 03/15/2018 Obesity, Class II, BMI 35-39.9 [E66.812] 03/15/2018 Dizziness [R42] 07/14/2023 Balance problem [R26.89] 07/14/2023 Abnormality of gait [R26.9] 07/14/2023 Vasovagal syncope [R55] 08/28/2023 Palpitations [R00.2] 08/28/2023 Encounter Status:Closed by NORMA ROGERS on 05/10/24 Normal [facility] Basic Metabolic Profile (BMP )on 04-04-2024 BUN/CRE 19.7 RATIO Normal 10-20 [facility] Comment on above: Performed By: #### L 400.0001 #### [facility] [address] [place], [address] CA,Total 9.0 mg/dL Normal 8.5-10.1 [facility] Comment on above: Performed By: #### L 400.0001 #### [facility] [address] [place], [address] Chloride [Moles/Vol] 108 mmol/L High 98-107 [facility] Comment on above: Performed By: #### L 400.0001 #### [facility] [address] [place], [address] CO2 [Moles/Vol] 24.0 mmol/L Normal 21.0-32.0 [facility] Comment on above: Performed By: #### L 400.0001 #### [facility] [address] [place], [address] Creatinine [Mass/Vol] 0.92 mg/dL Normal 0.70-1.30 [facility] Comment on above: Result Comment: The validity of the calculated GFR GFRAA in patients over 70 years has not been determined. Clinical correlation is essential. Performed By: #### L 400.0001 #### [facility] [address] [place], [address] ECRCL 71.03 ml/min Normal [facility] Comment on above: Performed By: #### L 400.0001 #### [facility] [address] [place], [address] EST GFR - AA 104 mL/min Normal >60 [facility] Comment on above: Result Comment: Afri can [place] GFR Calc Performed By: #### L 400.0001 #### [facility] [address] [place], [address] GAP 5 Normal 5-15 [facility] Comment on above: Performed By: #### L 400.0001 #### [facility] [facility] [address] [place], [address] GFR/1.73 sq M.predicted among non-blacks MDRD (S/P/Bld) [Vol rate/Area] 86 mL/min/{1.73_m2} Normal >60 [facility] Comment on above: Result Comment: Non- GFR Calc Performed By: #### L 400.0001 #### [facility] [address] [place], [address] Glucose [Mass/Vol] 111 mg/dL High 74-106 [facility] Comment on above: Result Comment: Fast ing Glucose result from 100 to 125 mg/dL suggests IMPAIRED HOMEOSTASIS per A.D.A. criteria. Performed By: #### L 400.0001 #### [facility] [address] [place], [address] Potassium [Moles/Vol] 4.3 mmol/L Normal 3.5-5.1 [facility] Comment on above: Performed By: #### L 400.0001 #### [facility] [address] [place], [address] Sodium [Moles/Vol] 137 mmol/L Normal 136-145 [facility] Comment on above: Performed By: #### L 400.0001 #### [facility] [address] [place], [address] Urea nitrogen [Mass/Vol] 18 mg/dL Normal 7-18 [facility] Comment on above: Performed By: #### L 400.0001 #### [facility] [address] [place], [address] CBC W/Diff, Automatedon 03-17 Absolute Lymph 1.54 X10 3/uL Normal 0.83-4.51 [facility] Comment on above: Performed By: #### L 500.2500, L100.0100 ####[facility] [address] [place], [address] Absolute Neut 5.4 X10 3/uL Normal 2.0-7.7 [facility] Comment on above: Performed By: #### L 500.2500, L100.0100 ####[facility] [address] [place], [address] Basophils/100 WBC (Bld) 1.0 % Normal 0-1 [facility] Comment on above: Performed By: #### L 500.2500, L100.0100 ####[facility] [address] [place], [address] Eosinophils/100 WBC (Bld) 2.3 % Normal 0-5 [facility] Comment on above: Performed By: #### L 500.2500, L100.0100 ####[facility] [address] [place], [address] Erythrocyte distribution width (RBC) [Ratio] 12.8 % Normal 11.6-14.6 [facility] Comment on above: Performed By: #### L 500.2500, L100.0100 ####[facility] [address] [place], [address] Hematocrit (Bld) [Volume fraction] 39.3 % Low 40-54 [facility] Comment on above: Performed By: #### L 500.2500, L100.0100 ####[facility] [address] [place], [address] Hemoglobin (Bld) [Mass/Vol] 12.6 g/dL Low 13.0-16.5 [facility] Comment on above: Performed By: #### L 500.2500, L100.0100 ####[facility] [address] [place], [address] IG% 0.700 Normal 0.0-0.9 [facility] Comment on above: Result Comment: IG% - Immature Granulocytes (promyelocytes, myelocytes and metamyelocytes) > 1% indicates that a LEFT SHIFT is Present. Performed By: #### L 500.2500, L100.0100 ####[facility] [address] [place], [address] Lymphocytes/100 WBC (Bld) 18.9 % Low 19-41 [facility] Comment on above: Performed By: #### L 500.2500, L100.0100 ####[facility] [address] [place], [address] MCH (RBC) [Entitic mass] 31.3 pg Normal 27.0-32.0 [facility] Comment on above: Performed By: #### L 500.2500, L100.0100 ####[facility] [address] [place], [address] MCHC (RBC) [Mass/Vol] 32.1 g/dL Normal 32-36 [facility] Comment on above: Performed By: #### L 500.2500, L100.0100 ####[facility] [address] [place], [address] MCV (RBC) [Entitic vol] 97.5 fL High 80-94 [facility] Comment on above: Performed By: #### L 500.2500, L100.0100 ####[facility] [address] [place], [address] Monocytes/100 WBC (Bld) 10.6 % High 0-10 [facility] Comment on above: Performed By: #### L 500.2500, L100.0100 ####[facility] [address] [place], [address] Neutrophils/100 WBC (Bld) 66.5 % Normal 47-70 [facility] Comment on above: Performed By: #### L 500.2500, L100.0100 ####[facility] [address] [place], [address] Nucleated RBC (Bld) [#/Vol] 0 10*3/uL Normal 0-5 [facility] Comment on above: Performed By: #### L 500.2500, L100.0100 ####[facility] [address] [place], [address] Platelet mean volume (Bld) [Entitic vol] 9.9 fL Normal 6.2-12.0 [facility] Comment on above: Performed By: #### L 500.2500, L100.0100 ####[facility] [address] [place], [address] Platelets (Bld) [#/Vol] 262 10*3/uL Normal 150-450 [facility] Comment on above: Performed By: #### L 500.2500, L100.0100 ####[facility] [address] [place], [address] RBC (Bld) [#/Vol] 4.03 10*6/uL Low 4.6-6.2 [facility] Comment on above: Performed By: #### L 500.2500, L100.0100 ####[facility] [address] [place], [address] RDW SD 45.4 fl High 35.1-43.9 [facility] Comment on above: Performed By: #### L 500.2500, L100.0100 ####[facility] [address] [place], [address] WBC (Bld) [#/Vol] 8.1 10*3/uL Normal 4.4-11.0 [facility] Comment on above: Performed By: #### L 500.2500, L100.0100 ####[facility] [address] [place], [address] T4 Free Directon 03-30-2024 T4 FREE DIRECT 1.12 ng/dL Normal 0.76-1.46 [facility] Comment on above: Performed By: #### L 506.0400 ####[facility] [address] [place], [address] Basic Metabolic Profile (BMP )on 03-29-2024 BUN/CRE 14.7 RATIO Normal 10-20 [facility] Comment on above: Performed By: #### L 501.2300, L501.5200, L501.9520, L500.2500, L100.0100, L500.3400 ####[facility] [address] [place], [address] CA,Total 8.3 mg/dL Low 8.5-10.1 [facility] Comment on above: Performed By: #### L 501.2300, L501.5200, L501.9520, L500.2500, L100.0100, L500.3400 ####[facility] [address] [place], [address] Chloride [Moles/Vol] 110 mmol/L High 98-107 [facility] Comment on above: Performed By: #### L 501.2300, L501.5200, L501.9520, L500.2500, L100.0100, L500.3400 ####[facility] [address] [place], [address] CO2 [Moles/Vol] 24.0 mmol/L Normal 21.0-32.0 [facility] Comment on above: Performed By: #### L 501.2300, L501.5200, L501.9520, L500.2500, L100.0100, L500.3400 ####[facility] [address] [place], [address] Creatinine [Mass/Vol] 1.09 mg/dL Normal 0.70-1.30 [facility] Comment on above: Result Comment: The validity of the calculated GFR GFRAA in patients over 70 years has not been determined. Clinical correlation is essential. Performed By: #### L 501.2300, L501.5200, L501.9520, L500.2500, L100.0100, L500.3400 ####[facility] [address] [place], [address] ECRCL 59.96 ml/min Normal [facility] Comment on above: Performed By: #### L 501.2300, L501.5200, L501.9520, L500.2500, L100.0100, L500.3400 ####[facility] [address] [place], [place], [address](257 EST GFR - AA 85 mL/min Normal >60 [facility] Comment on above: Result Comment: Afri can Danish GFR Calc Performed By: #### L 501.2300, L501.5200, L501.9520, L500.2500, L100.0100, L500.3400 ####[facility] [address] [place], [address] GAP 5 Normal 5-15 [facility] Comment on above: Performed By: #### L 501.2300, L501.5200, L501.9520, L500.2500, L100.0100, L500.3400 ####[facility] [address] [place], [address] GFR/1.73 sq M.predicted among non-blacks MDRD (S/P/Bld) [Vol rate/Area] 70 mL/min/{1.73_m2} Normal >60 [facility] Comment on above: Result Comment: Non- GFR Calc Performed By: #### L 501.2300, L501.5200, L501.9520, L500.2500, L100.0100, L500.3400 ####[facility] [address] [place], [address] Glucose [Mass/Vol] 107 mg/dL High 74-106 [facility] Comment on above: Result Comment: Fast ing Glucose result from 100 to 125 mg/dL suggests IMPAIRED HOMEOSTASIS per A.D.A. criteria. Performed By: #### L 501.2300, L501.5200, L501.9520, L500.2500, L100.0100, L500.3400 ####[facility] [address] [place], [address] Potassium [Moles/Vol] 4.1 mmol/L Normal 3.5-5.1 [facility] Comment on above: Performed By: #### L 501.2300, L501.5200, L501.9520, L500.2500, L100.0100, L500.3400 ####[facility] [address] [place], [address] Sodium [Moles/Vol] 139 mmol/L Normal 136-145 [facility] Comment on above: Performed By: #### L 501.2300, L501.5200, L501.9520, L500.2500, L100.0100, L500.3400 ####[facility] [address] [place], [address] Urea nitrogen [Mass/Vol] 16 mg/dL Normal 7-18 [facility] Comment on above: Performed By: #### L 501.2300, L501.5200, L501.9520, L500.2500, L100.0100, L500.3400 ####[facility] [address] [place], [address] CBC W/Diff, Automatedon - Absolute Lymph 1.50 X10 3/uL Normal 0.83-4.51 [facility] Comment on above: Performed By: #### L 501.2300, L501.5200, L501.9520, L500.2500, L100.0100, L500.3400 ####[facility] [address] [place], [address] Absolute Neut 5.0 X10 3/uL Normal 2.0-7.7 [facility] Comment on above: Performed By: #### L 501.2300, L501.5200, L501.9520, L500.2500, L100.0100, L500.3400 ####[facility] [address] [place], [address] Basophils/100 WBC (Bld) 0.8 % Normal 0-1 [facility] Comment on above: Performed By: #### L 501.2300, L501.5200, L501.9520, L500.2500, L100.0100, L500.3400 ####[facility] [address] [place], [address] Eosinophils/100 WBC (Bld) 2.1 % Normal 0-5 [facility] Comment on above: Performed By: #### L 501.2300, L501.5200, L501.9520, L500.2500, L100.0100, L500.3400 ####[facility] [address] [place], [address] Erythrocyte distribution width (RBC) [Ratio] 12.9 % Normal 11.6-14.6 [facility] Comment on above: Performed By: #### L 501.2300, L501.5200, L501.9520, L500.2500, L100.0100, L500.3400 ####[facility] [address] [place], [address] Hematocrit (Bld) [Volume fraction] 36.4 % Low 40-54 [facility] Comment on above: Performed By: #### L 501.2300, L501.5200, L501.9520, L500.2500, L100.0100, L500.3400 ####[facility] [address] [place], [address] Hemoglobin (Bld) [Mass/Vol] 11.4 g/dL Low 13.0-16.5 [facility] Comment on above: Performed By: #### L 501.2300, L501.5200, L501.9520, L500.2500, L100.0100, L500.3400 ####[facility] [address] [place], [address] IG% 0.900 Normal 0.0-0.9 [facility] Comment on above: Result Comment: IG% - Immature Granulocytes (promyelocytes, myelocytes and metamyelocytes) > 1% indicates that a LEFT SHIFT is Present. Performed By: #### L 501.2300, L501.5200, L501.9520, L500.2500, L100.0100, L500.3400 ####[facility] [address] [place], [address] Lymphocytes/100 WBC (Bld) 20.0 % Normal 19-41 [facility] Comment on above: Performed By: #### L 501.2300, L501.5200, L501.9520, L500.2500, L100.0100, L500.3400 ####[facility] [address] [place], [address] MCH (RBC) [Entitic mass] 31.2 pg Normal 27.0-32.0 [facility] Comment on above: Performed By: #### L 501.2300, L501.5200, L501.9520, L500.2500, L100.0100, L500.3400 ####[facility] [address] [place], [address] MCHC (RBC) [Mass/Vol] 31.3 g/dL Low 32-36 [facility] Comment on above: Performed By: #### L 501.2300, L501.5200, L501.9520, L500.2500, L100.0100, L500.3400 ####[facility] [address] [place], [address] MCV (RBC) [Entitic vol] 99.7 fL High 80-94 [facility] Comment on above: Performed By: #### L 501.2300, L501.5200, L501.9520, L500.2500, L100.0100, L500.3400 ####[facility] [address] [place], [address] Monocytes/100 WBC (Bld) 9.6 % Normal 0-10 [facility] Comment on above: Performed By: #### L 501.2300, L501.5200, L501.9520, L500.2500, L100.0100, L500.3400 ####[facility] [address] [place], [address] Neutrophils/100 WBC (Bld) 66.6 % Normal 47-70 [facility] Comment on above: Performed By: #### L 501.2300, L501.5200, L501.9520, L500.2500, L100.0100, L500.3400 ####[facility] [address] [place], [address] Nucleated RBC (Bld) [#/Vol] 0 10*3/uL Normal 0-5 [facility] Comment on above: Performed By: #### L 501.2300, L501.5200, L501.9520, L500.2500, L100.0100, L500.3400 ####[facility] [address] [place], [address] Platelet mean volume (Bld) [Entitic vol] 9.7 fL Normal 6.2-12.0 [facility] Comment on above: Performed By: #### L 501.2300, L501.5200, L501.9520, L500.2500, L100.0100, L500.3400 ####[facility] [address] [place], [address] Platelets (Bld) [#/Vol] 232 10*3/uL Normal 150-450 [facility] Comment on above: Performed By: #### L 501.2300, L501.5200, L501.9520, L500.2500, L100.0100, L500.3400 ####[facility] [address] [place], [address] RBC (Bld) [#/Vol] 3.65 10*6/uL Low 4.6-6.2 [facility] Comment on above: Performed By: #### L 501.2300, L501.5200, L501.9520, L500.2500, L100.0100, L500.3400 ####[facility] [address] [place], [address] RDW SD 47.4 fl High 35.1-43.9 [facility] Comment on above: Performed By: #### L 501.2300, L501.5200, L501.9520, L500.2500, L100.0100, L500.3400 ####[facility] [address] [place], [address] WBC (Bld) [#/Vol] 7.5 10*3/uL Normal 4.4-11.0 [facility] Comment on above: Performed By: #### L 501.2300, L501.5200, L501.9520, L500.2500, L100.0100, L500.3400 ####[facility] [address] [place], [address] Liver Profileon 03-29-2024 Albumin [Mass/Vol] 2.7 g/dL Low 3.2-5.0 [facility] Comment on above: Performed By: #### L 501.2300, L501.5200, L501.9520, L500.2500, L100.0100, L500.3400 ####[facility] [address] [place], [address] ALK P 58 U/L Normal 45-117 [facility] Comment on above: Performed By: #### L 501.2300, L501.5200, L501.9520, L500.2500, L100.0100, L500.3400 ####[facility] [address] [place], [address] ALT [Catalytic activity/Vol] 26 U/L Normal 16-61 [facility] Comment on above: Performed By: #### L 501.2300, L501.5200, L501.9520, L500.2500, L100.0100, L500.3400 ####[facility] [address] [place], [address] AST [Catalytic activity/Vol] 15 U/L Normal 15-37 [facility] Comment on above: Performed By: #### L 501.2300, L501.5200, L501.9520, L500.2500, L100.0100, L500.3400 ####[facility] [address] [place], [address] Bilirubin [Mass/Vol] 0.40 mg/dL Normal 0.20-1.00 [facility] Comment on above: Result Comment: For patients on eltrombopag therapy, use of Dimension [place] TBIL is not recommended. Performed By: #### L 501.2300, L501.5200, L501.9520, L500.2500, L100.0100, L500.3400 ####[facility] [address] [place], [address] Bilirubin.direct [Mass/Vol] 0.13 mg/dL Normal 0.00-0.30 [facility] Comment on above: Performed By: #### L 501.2300, L501.5200, L501.9520, L500.2500, L100.0100, L500.3400 ####[facility] [address] [place], [address] Globulin (S) [Mass/Vol] 3.5 g/dL Normal 2.2-4.2 [facility] Comment on above: Performed By: #### L 501.2300, L501.5200, L501.9520, L500.2500, L100.0100, L500.3400 ####[facility] [address] [place], [address] T PROT 6.2 g/dL Low 6.4-8.2 [facility] Comment on above: Performed By: #### L 501.2300, L501.5200, L501.9520, L500.2500, L100.0100, L500.3400 ####[facility] [address] [place], [address] Magnesiumon 03-29-2024 Magnesium [Mass/Vol] 2.0 mg/dL Normal 1.6-2.6 [facility] Comment on above: Performed By: #### L 501.2300, L501.5200, L501.9520, L500.2500, L100.0100, L500.3400 ####[facility] [address] [place], [address] Phosphoruson 03-29-2024 Phosphate [Mass/Vol] 3.1 mg/dL Normal 2.5-4.9 [facility] Comment on above: Performed By: #### L 501.2300, L501.5200, L501.9520, L500.2500, L100.0100, L500.3400 ####[facility] [address] [place], [address] Thyroid Stim Hormone (TSH)on 03-29-2024 TSH 0.169 uIU/mL Low 0.358-3.740 [facility] Comment on above: Performed By: #### L 501.2300, L501.5200, L501.9520, L500.2500, L100.0100, L500.3400 ####[facility] [address] [place], [address] Vitamin B12on 03-29-2024 Cobalamin (Vitamin B12) [Mass/Vol] 281 pg/mL Normal 211-911 [facility] Comment on above: Performed By: #### L 503.0105 ####[facility] [address] [place], [address] 12 Lead EKGon 03-28-2024 12 Lead EKG [facility] [address] [place] [address] 12 Lead EKG 03/28/24 1027 MR#: [id number] Acct: [id number] Name: J LUIS MADERA Rep #: [id number] : 1950 73 From: Jass Rawls MD Attending Dr: Dr. Kike Malave MD Status: ADM EDUARDO Ordering Dr: Pablo Bill DO Date: 4 Location: [facility] [place] Sex: M C Admitted: 03/28/24 Test Reason : Blood Pressure : / mmHG Vent. Rate : 075 BPM Atrial Rate : 075 BPM P-R Int : 168 ms QRS Dur : 130 ms QT Int : 396 ms P-R-T Axes : 059 077 045 degrees QTc Int : 442 ms Normal sinus rhythm Right bundle branch block Abnormal ECG Confirmed by JASS RAWLS MD ([id number]), newspaper or periodical editor CYN MATHUR ([id number]) on 03/30/2024 8:09:42 AM Referred By: AK Confirmed By:JASS RAWLS MD 03/30/24 0809 Date Jass Rawls MD CC: Dr. Pablo Bill DO; Dr. Usman Patel MD; Dr. Kike Malave MD Signed Normal [facility] Basic Metabolic Profile (BMP )on 03-28-2024 BUN/CRE 13.8 RATIO Normal 10-20 [facility] Comment on above: Order Comment: 'TROP ' Serial specimen #1, #2 or #3: 1 Performed By: #### L 503.6005, L500.2500, L501.4020, L100.0100 #### [facility] [address] [place], [address] CA,Total 9.3 mg/dL Normal 8.5-10.1 [facility] Comment on above: Order Comment: 'TROP ' Serial specimen #1, #2 or #3: 1 Performed By: #### L 503.6005, L500.2500, L501.4020, L100.0100 #### [facility] [address] [place], [address] Chloride [Moles/Vol] 108 mmol/L High 98-107 [facility] Comment on above: Order Comment: 'TROP ' Serial specimen #1, #2 or #3: 1 Performed By: #### L 503.6005, L500.2500, L501.4020, L100.0100 #### [facility] [address] [place], [address] CO2 [Moles/Vol] 27.0 mmol/L Normal 21.0-32.0 [facility] Comment on above: Order Comment: 'TROP ' Serial specimen #1, #2 or #3: 1 Performed By: #### L 503.6005, L500.2500, L501.4020, L100.0100 #### [facility] [address] [place], [address] Creatinine [Mass/Vol] 1.30 mg/dL Normal 0.70-1.30 [facility] Comment on above: Order Comment: 'TROP ' Serial specimen #1, #2 or #3: 1 Result Comment: The validity of the calculated GFR GFRAA in patients over 70 years has not been determined. Clinical correlation is essential. Performed By: #### L 503.6005, L500.2500, L501.4020, L100.0100 #### [facility] [address] [place], [address] ECRCL 51.97 ml/min Normal [facility] Comment on above: Order Comment: 'TROP ' Serial specimen #1, #2 or #3: 1 Performed By: #### L 503.6005, L500.2500, L501.4020, L100.0100 #### [facility] [address] [place], [address] EST GFR - AA 69 mL/min Normal >60 [facility] Comment on above: Order Comment: 'TROP ' Serial specimen #1, #2 or #3: 1 Result Comment: Afri can Danish GFR Calc Performed By: #### L 503.6005, L500.2500, L501.4020, L100.0100 #### [facility] [address] [place], [address] GAP 4 Low 5-15 [facility] Comment on above: Order Comment: 'TROP ' Serial specimen #1, #2 or #3: 1 Performed By: #### L 503.6005, L500.2500, L501.4020, L100.0100 #### [facility] [address] [place], [address] GFR/1.73 sq M.predicted among non-blacks MDRD (S/P/Bld) [Vol rate/Area] 57 mL/min/{1.73_m2} Low >60 [facility] Comment on above: Order Comment: 'TROP ' Serial specimen #1, #2 or #3: 1 Result Comment: Non- GFR Calc Performed By: #### L 503.6005, L500.2500, L501.4020, L100.0100 #### [facility] [address] [place], [address] Glucose [Mass/Vol] 124 mg/dL High 74-106 [facility] Comment on above: Order Comment: 'TROP ' Serial specimen #1, #2 or #3: 1 Result Comment: Fast ing Glucose result from 100 to 125 mg/dL suggests IMPAIRED HOMEOSTASIS per A.D.A. criteria. Performed By: #### L 503.6005, L500.2500, L501.4020, L100.0100 #### [facility] [address] [place], [address] Potassium [Moles/Vol] 4.2 mmol/L Normal 3.5-5.1 [facility] Comment on above: Order Comment: 'TROP ' Serial specimen #1, #2 or #3: 1 Performed By: #### L 503.6005, L500.2500, L501.4020, L100.0100 #### [facility] [address] [place], [address] Sodium [Moles/Vol] 139 mmol/L Normal 136-145 [facility] Comment on above: Order Comment: 'TROP ' Serial specimen #1, #2 or #3: 1 Performed By: #### L 503.6005, L500.2500, L501.4020, L100.0100 #### [facility] [address] [place], [address] Urea nitrogen [Mass/Vol] 18 mg/dL Normal 7-18 [facility] Comment on above: Order Comment: 'TROP ' Serial specimen #1, #2 or #3: 1 Performed By: #### L 503.6005, L500.2500, L501.4020, L100.0100 #### [facility] [address] [place], [address] CBC W/Diff, Automatedon 09- 2-2023 Absolute Lymph 1.10 X10 3/uL Normal 0.83-4.51 [facility] Comment on above: Performed By: #### L 503.6005, L500.2500, L501.4020, L100.0100 #### [facility] [address] [place], [address] Absolute Neut 4.7 X10 3/uL Normal 2.0-7.7 [facility] Comment on above: Performed By: #### L 503.6005, L500.2500, L501.4020, L100.0100 #### [facility] [address] [place], [address] Basophils/100 WBC (Bld) 0.7 % Normal 0-1 [facility] Comment on above: Performed By: #### L 503.6005, L500.2500, L501.4020, L100.0100 #### [facility] [address] [place], [address] Eosinophils/100 WBC (Bld) 1.9 % Normal 0-5 [facility] Comment on above: Performed By: #### L 503.6005, L500.2500, L501.4020, L100.0100 #### [facility] [address] [place], [address] Erythrocyte distribution width (RBC) [Ratio] 12.8 % Normal 11.6-14.6 [facility] Comment on above: Performed By: #### L 503.6005, L500.2500, L501.4020, L100.0100 #### [facility] [address] [place], [address] Hematocrit (Bld) [Volume fraction] 39.7 % Low 40-54 [facility] Comment on above: Performed By: #### L 503.6005, L500.2500, L501.4020, L100.0100 #### [facility] [address] [place], [address] Hemoglobin (Bld) [Mass/Vol] 12.6 g/dL Low 13.0-16.5 [facility] Comment on above: Performed By: #### L 503.6005, L500.2500, L501.4020, L100.0100 #### [facility] [address] [place], [address] IG% 1.000 High 0.0-0.9 [facility] Comment on above: Result Comment: IG% - Immature Granulocytes (promyelocytes, myelocytes and metamyelocytes) > 1% indicates that a LEFT SHIFT is Present. Performed By: #### L 503.6005, L500.2500, L501.4020, L100.0100 #### [facility] [address] [place], [address] Lymphocytes/100 WBC (Bld) 16.4 % Low 19-41 [facility] Comment on above: Performed By: #### L 503.6005, L500.2500, L501.4020, L100.0100 #### [facility] [address] [place], [address] MCH (RBC) [Entitic mass] 31.7 pg Normal 27.0-32.0 [facility] Comment on above: Performed By: #### L 503.6005, L500.2500, L501.4020, L100.0100 #### [facility] [address] [place], [address] MCHC (RBC) [Mass/Vol] 31.7 g/dL Low 32-36 [facility] Comment on above: Performed By: #### L 503.6005, L500.2500, L501.4020, L100.0100 #### [facility] [address] [place], [address] MCV (RBC) [Entitic vol] 100.0 fL High 80-94 [facility] Comment on above: Performed By: #### L 503.6005, L500.2500, L501.4020, L100.0100 #### [facility] [address] [place], [address] Monocytes/100 WBC (Bld) 9.7 % Normal 0-10 [facility] Comment on above: Performed By: #### L 503.6005, L500.2500, L501.4020, L100.0100 #### [facility] [address] [place], [address] Neutrophils/100 WBC (Bld) 70.3 % High 47-70 [facility] Comment on above: Performed By: #### L 503.6005, L500.2500, L501.4020, L100.0100 #### [facility] [address] [place], [address] Nucleated RBC (Bld) [#/Vol] 0 10*3/uL Normal 0-5 [facility] Comment on above: Performed By: #### L 503.6005, L500.2500, L501.4020, L100.0100 #### [facility] [address] [place], [address] Platelet mean volume (Bld) [Entitic vol] 9.5 fL Normal 6.2-12.0 [facility] Comment on above: Performed By: #### L 503.6005, L500.2500, L501.4020, L100.0100 #### [facility] [address] [place], [address] Platelets (Bld) [#/Vol] 250 10*3/uL Normal 150-450 [facility] Comment on above: Performed By: #### L 503.6005, L500.2500, L501.4020, L100.0100 #### [facility] [address] [place], [address] RBC (Bld) [#/Vol] 3.97 10*6/uL Low 4.6-6.2 [facility] Comment on above: Performed By: #### L 503.6005, L500.2500, L501.4020, L100.0100 #### [facility] [address] [place], [address] RDW SD 47.1 fl High 35.1-43.9 [facility] Comment on above: Performed By: #### L 503.6005, L500.2500, L501.4020, L100.0100 #### [facility] [address] [place], [address] WBC (Bld) [#/Vol] 6.7 10*3/uL Normal 4.4-11.0 [facility] Comment on above: Performed By: #### L 503.6005, L500.2500, L501.4020, L100.0100 #### [facility] [address] [place], [address] Chest 1 View (Portable)on Chest 1 View (Portable) [facility] Imaging Services [address] [place] [address] Chest 1 View (Portable) MR#: [id number] Acct: [id number] Name: J LUIS MADERA Rep #: [id number] : 1950 M 73 From: Vj antoine MD PCP: Dr. Usman Patel MD Status: [facility] ER Study: Chest 1 View (Portable) Date of Exam: 03/28/24 Exam# [id number] Ordering Dr: Pablo Bill DO [id number] STUDY: X-RAY CHEST REASON FOR EXAM: Male, 73 years old. COPD/weakness TECHNIQUE: COMPARISON: None. FINDINGS: The lungs are clear and expanded. There is no demonstrated pleural abnormality. Normal size heart. Normal mediastinum and nick. Normal visualized pulmonary arteries. Normal visualized aortic arch and descending thoracic aorta. There are diffuse degenerative changes of the visualized thoracic spine. Normal visualized ribs, clavicles, and shoulders. There is no demonstrated abnormality of the visualized soft tissue structures of the upper abdomen. RAD/Chest 1 View (Portable) IMPRESSION: No acute abnormality is seen. Electronically Signed: Vj Fisher MD at 11:01 EDT Reading Location ID and State: [address] [place] [address] , Service support , CC: Dr. Pablo Bill DO; Dr. Usman Patel MD Product Merchandiser: Signed Normal [facility] Emergency Department Summary on 03-28-2024 Emergency Department Summary [facility] Medical Records Department [address] [place] [address] Emergency Department Summary 03/28/24 MR#: [id number] Acct: [id number] Name: J LUIS MADERA Rep #: [id number] : 1950 73 From: Pablo Bill DO PCP: Dr. Usman Patel MD Status:ADM EDUARDO Location: [place] [address] HPI History of Present Illness Chief Complaint: Weakness Narrative Narrative: Chief complaint and HPI: Weakness. 73-year-old male with history of cerebral palsy presents for evaluation of weakness. Patient states that he lives at home with his elderly mother as well as his high functioning niece who has MRDD. He states for the past 2 to 3 days he has had increased weakness and is unable to ambulate out of bed. Patient states he usually gets around with a 4-prong walker. Patient denies any fever, chills, URI symptoms, chest pain, shortness of breath, abdominal pain, nausea, vomiting, dysuria, diarrhea, bloody bowel movements. He states he just feels generally weak. Denies any numbness or tingling or focal deficit. He states he has had decreased p.o. intake secondary to little appetite as well as inability to ambulate. Denies any falls or trauma. Review of systems: See HPI Medications: As listed on the chart Allergies: As listed on the chart PFSH: Per chart Vital signs: As listed on the chart. Reviewed. Physical exam: Gen: A O x3, NAD, smells of urine Head: Normocephalic, atraumatic Eyes: No sclera icterus, conjunctiva clear, PERRL, EOMI ENT: Dry mucous membranes Neck: Trachea midline, No JVD CV: RRR, no murmurs, no peripheral edema Resp: Lungs CTA BL, no w/r/c GI: Abd soft, non-distended, non-tender, no r/r/g : Circumcised male, normal external genitalia, no signs of rash or infection other than mild yeast in the bilateral groin Musc: Moves all extremities, chronic right upper extremity contracture, no deformity Skin: Warm, dry Neuro: Alert, oriented, grossly intact, sensation intact Psych: Cooperative, appropriate mood and affect EKG: Interpreted by me/EM physician: EKG shows heart rate of 75. Normal sinus rhythm. Patient does have a new right bundle branch block that was not seen on previous EKG in June 2023. Patient currently denying any chest pain or shortness of breath. Diagnostic: Interpreted by me/EM physician: Without pneumonia, effusions, pneumothorax. This was compared to previous chest x-ray. [facility] Medical History (Updated 07/03/23 @ 00:01 by Background Daemon) Generalized weakness Hx of cerebral palsy Post-nasal drip COPD with exacerbation Suspected chronic obstructive pulmonary disease based on initial evaluation DVT of proximal lower limb History of seizures History of cerebral palsy Home Medications ???Medication ???Instructions ???Recorded ???Last Taken ???Type carbamazepine 200 mg tablet 200 mg PO TID seizures 08/29/17 03/27/24 History levetiracetam 500 mg tablet 500 mg PO BID seizures 08/29/17 03/27/24 History fluticasone 500 mcg-salmeterol 50 1 inh inhalation DAILY 06/23/23 03/27/24 History mcg/dose blistr powdr for inhalation albuterol sulfate 90 mcg/actuation 2 puff inhalation Q4H PRN 03/28/24 Unknown History aerosol inhaler wheezing/shortness of breath levothyroxine 100 mcg tablet 100 mcg PO DAILY 03/28/24 Unknown History (Levoxyl) Allergy/AdvReac Type Severity Reaction Status Date / Time No Known Allergies Allergy Verified 06/23/23 13:14 Family History (Updated 06/23/23 @ 17:[address] Raoul Oliver MD) Other Heart disease Surgical History History of tonsillectomy Social History Smoking Status: Former smoker second hand exposure: No alcohol intake: never substance use type: does not use caffeine: Yes Type: coffee Number of servings: 2 and tea what type of physical activity do you participate in: none EXAM Physical Exam Const Vital Signs: 03/28/24 09:50 03/28/24 09:50 03/28/24 09:57 Temperature 95 F L 95 F L Temperature Source Temporal Temporal Pulse Rate 84 83 Respiratory Rate 18 18 Respiratory Effort Normal Non-Labored Respiratory Pattern Normal Blood Pressure 129/63 H 129/63 H Blood Pressure Mean 85 85 Pulse Ox 99 97 Oxygen Delivery Method Room Air Room Air 03/28/24 10:57 03/28/24 11:00 03/28/24 11:50 Temperature 97.6 F L 97.6 F L Temperature Source Temporal Temporal Pulse Rate 70 69 71 Respiratory Rate 18 18 18 Respiratory Effort Respiratory Pattern Blood Pressure 120/81 H 120/76 150/91 H Blood Pressure Mean 94 90 110 Pulse Ox 99 98 98 Oxygen Delivery Method Room Air Room Air Room Air MDM MDM MDM Narrative Medical decision making narrative: (more content not included)... Normal [facility] Ferritinon 03-28-2024 Ferritin [Mass/Vol] 286 ng/mL Normal 26-388 [facility] Comment on above: Performed By: #### L 503.0105, L503.6550, L503.6030, L506.1000 ####[facility] [id number] [place], [address] H AND P Exam - Hospitaliston 03-28-2024 H&P Exam - Hospitalist [facility] Medical Records Department [address] [place] [address] H P Exam - Hospitalist 03/28/24 1337 MR#: [id number] Acct: [id number] Name: J LUIS MADERA Rep #: [id number] : 1950 73 From: Melissa Burton MD PCP: Dr. Usman Patel MD Status:ADM EDUARDO Location: [facility] [id number] HPI - General General Date of Admission: 03/28/24 Date of Service: 03/28/24 Chief Complaint: Weakness and difficulty ambulating HPI Narrative J LUIS MADERA, is a 73 M with history of cerebral palsy, COPD, seizure disorder presented [facility] ED 03/28/2024 d/t difficulty with ambulating and weakness. Pt lives at home w/ elderly mother and niece and has had increasing weakness over the past 2 or so days and today he was unable to get out of bed due to weakness. Patient somewhat poor historian but it does seem that primary complaint is mostly weakness in lower extremities, sometimes he will feel some pain in his hips or lower abdomen but no pain in his back, not as weak in upper extremities. No recent seizures or seizure-like activity. Workup unrevealing given patient unable to ambulate or care for self hospitalist contacted for admission. Patient seen at bedside and reports that he has had progressive weakness over the past couple of years and has been using a cane for a while now but over the past couple of days had the increased weakness in bilateral lower extremities with no numbness, tingling, focal deficits. Has not been eating or drinking very well because he has not felt like it and is slightly dehydrated. Gets some pain in his hips but otherwise ROS otherwise negative [facility] Medical History (Updated 07/03/23 @ 00:01 by Background Daemon) COPD with exacerbation DVT of proximal lower limb Generalized weakness History of cerebral palsy History of seizures Hx of cerebral palsy Post-nasal drip Suspected chronic obstructive pulmonary disease based on initial evaluation Home Medications ???Medication ???Instructions ???Recorded ???Last Taken ???Type carbamazepine 200 mg tablet 200 mg PO TID seizures 08/29/17 03/27/24 History levetiracetam 500 mg tablet 500 mg PO BID seizures 08/29/17 03/27/24 History fluticasone 500 mcg-salmeterol 50 1 inh inhalation DAILY 06/23/23 03/27/24 History mcg/dose blistr powdr for inhalation albuterol sulfate 90 mcg/actuation 2 puff inhalation Q4H PRN 03/28/24 Unknown History aerosol inhaler wheezing/shortness of breath levothyroxine 100 mcg tablet 100 mcg PO DAILY 03/28/24 Unknown History (Levoxyl) Allergy/AdvReac Type Severity Reaction Status Date / Time No Known Allergies Allergy Verified 06/23/23 13:14 Family History (Updated 06/23/23 @ 17:[address] Raoul Oliver MD) Other Heart disease Surgical History History of tonsillectomy Social History Smoking Status: Former smoker second hand exposure: No alcohol intake: never substance use type: does not use caffeine: Yes Type: coffee Number of servings: 2 and tea what type of physical activity do you participate in: none ROS ROS Narrative General: Denies fever/chills HENT: Denies headache, denies stuffy nose, denies sore throat EYES: Denies changes in vision Resp: Denies cough, denies shortness of breath Cardiac: Denies chest pain GI: Maybe will get some intermittent lower abdominal discomfort but patient cannot describe this any further, denies changes in bowel, denies nausea/vomiting : Denies changes in urination Extremity: Denies swelling MSK: Weakness more so bilateral lower extremities and upper Neuro: Denies any numbness/tingling Heme: Denies any bleeding or bruising Skin: Denies rashes Psychiatric: No complaints voiced Vital Signs Vital Signs Vital Signs: 03/28/24 09:50 03/28/24 09:50 03/28/24 09:57 Temperature 95 F L 95 F L Temperature Source Temporal Temporal Pulse Rate 84 83 Respiratory Rate 18 18 Respiratory Effort Normal Non-Labored Respiratory Pattern Normal Blood Pressure 129/63 H 129/63 H Blood Pressure Mean 85 85 Pulse Ox 99 97 Oxygen Delivery Method Room Air Room Air 03/28/24 10:57 03/28/24 11:00 03/28/24 11:50 Temperature 97.6 F L 97.6 F L Temperature Source Temporal Temporal Pulse Rate 70 69 71 Respiratory Rate 18 18 18 Respiratory Effort Respiratory Pattern Blood Pressure 120/81 H 120/76 150/91 H Blood Pressure Mean 94 90 110 Pulse Ox 99 98 98 Oxygen Delivery Method Room Air Room Air Room Air 03/28/24 13:00 Temperature Temperature Source Pulse Rate 82 Respiratory Rate 18 Respiratory Effort Respiratory Pattern Blood Pressure 148/80 H Blood Pressure Mean 102 Pulse Ox 97 Oxy (more content not included)... Normal [facility] Iron+Iron Binding Capacityon 03-28-2024 Iron [Mass/Vol] 88 ug/dL Normal 65-175 [facility] Comment on above: Result Comment: Slig ht Hemolysis, Result may be falsely increased. Performed By: #### L 503.0105, L503.6550, L503.6030, L506.1000 #### [facility] [address] [place], [address] IRON SATURATION 31.9 Normal 15.0-55.0 [facility] Comment on above: Performed By: #### L 503.0105, L503.6550, L503.6030, L506.1000 #### [facility] [address] [place], [address] TIBC 276 ug/dL Normal 250-450 [facility] Comment on above: Performed By: #### L 503.0105, L503.6550, L503.6030, L506.1000 #### [facility] [address] [place], [address] L501.4020on 03-28-2024 TROPONIN-I HS 4 pg/mL Normal 3.0-78.0 [facility] Comment on above: Order Comment: 'TROP ' Serial specimen #1, #2 or #3: 1 Result Comment: Plea se Note: New Test Units and Gender Specific Reference Ranges. For more information see Policy Stat Procedure [place] High Sensitivity Troponin (TNIH) and attachments. Performed By: #### L 503.6005, L500.2500, L501.4020, L100.0100 #### [facility] [address] [place], [address] Lactic Acidon 03-28-2024 Lactate [Moles/Vol] 1.8 mmol/L Normal 0.4-1.9 [facility] Comment on above: Order Comment: Y Performed By: #### L 503.6005, L500.2500, L501.4020, L100.0100 #### [facility] [address] [place], [address] M100.678on 03-28-2024 M100.678 Pending SARS-CoV-2 (COVID 19) Negative INFLUENZA A Negative INFLUENZA B Negative RSV PCR Negative Normal [facility] Comment on above: Performed By: #### M 100.678 #### [facility] [address] [place], [address] Urinalysis, Completeon 03-28 BACTERIA 1+ /hpf Normal None Seen [facility] Comment on above: Order Comment: CLEAN CATCH Performed By: #### L 400.0001 #### [facility] [address] [place], [address] EPI,SQUAMOUS 0-5 SEEN Normal 0-5 [facility] Comment on above: Order Comment: CLEAN CATCH Performed By: #### L 400.0001 #### [facility] [address] [place], [address] WBC 0-5 SEEN Normal 0-5 [facility] Comment on above: Order Comment: CLEAN CATCH Performed By: #### L 400.0001 #### [facility] [address] [place], [address] Mucus Ql (Urine sed) 0 SEEN Normal [facility] Comment on above: Order Comment: CLEAN CATCH Performed By: #### L 400.0001 #### [facility] [address] [place], [address] RBC 0 SEEN Normal 0-5 [facility] Comment on above: Order Comment: CLEAN CATCH Performed By: #### L 400.0001 #### [facility] [address] [place], [address] Venous Duplex US - Bright Extre mon 03-28-2024 Venous Duplex US - Bright Extrem [facility] Cardiovascular Services [address] [place] [address] Venous Duplex US - Bright Extrem 03/28/24 1456 MR#: [id number] Acct: [id number] Name: J LUIS MADERA Rep #: [id number] : 1950 73 From: Grady Dupree MD Attending Dr: Dr. Melissa Burton MD Status: ADM EDUARDO Ordering Dr: Melissa Burton MD Date: 03/28/24 Location: [facility] Sex: M C Admitted: 03/28/24 Reason For Study: BLE Swelling RIGHT LEFT GSV is normal. GSV is normal. CFV is compressible, spontaneous, competent CFV is compressible, spontaneous, competent, and demonstrates pulsatile venous flow. and demonstrates pulsatile venous flow. FV is compressible, spontaneous, competent FV is compressible, spontaneous, competent and demonstrates pulsatile venous flow. and demonstrates pulsatile venous flow. POP V is compressible, spontaneous, competent POP V is compressible, spontaneous, competent and demonstrates pulsatile venous flow. and demonstrates pulsatile venous flow. T/P Trunk is compressible. T/P Trunk is compressible. PTV is compressible. PTV is compressible. RT PerV is compressible. LT PerV is compressible. Procedure This is a venous duplex using B-mode, color flow and spectral Doppler. Exam performed portable in patient room. The exam was diagnostic. A preliminary report was called and/or faxed to M/S 3 decommissioning well site manager. VL/Venous Duplex US - Bright Extrem Interpretation Summary Deep veins of the lower extremities are bilaterally patent and compressible segmentally. There is no evidence of deep vein thrombosis on either side. Valvular competence appears intact within the proximal deep venous systems bilaterally. The great saphenous veins appear bilaterally patent and compressible segmentally. Pulsatile flow is noted in the deep venous systems bilaterally, which may be indicative of elevated central venous pressure (i.e. congestive heart failure, pulmonary hypertension, etc.). Clinical correlation is advised. Ordering Physician: Melissa Burton Referring Physician: MD Usman Patel Performed By: Luke Stephens, LOULOU 03/28/241925 Date Grady Dupree MD CC: Dr. Usman Patel MD; Dr. Melissa Burton MD Date Dictated: 03/28/241455 Date Transcribed: 03/28/241925 Product Merchandiser: Signed Normal [facility] Vitamin B12on 03-28-2024 Cobalamin (Vitamin B12) [Mass/Vol] 361 pg/mL Normal 211-911 [facility] Comment on above: Performed By: #### L 503.0105, L503.6550, L503.6030, L506.1000 #### [facility] [address] [place], [place], [address] Vitamin D,25 Hydroxyon 03-28 Vitamin D 25-OH 17.4 ng/mL Normal [facility] Comment on above: Result Comment: Ammy min D 25(OH) Status Range Deficiency <20 ng/mL (50nmol/L) Insufficiency 20 - 30 ng/mL (50 - 75 nmol/L) Sufficiency 30 - 100 ng/mL (75 - 250 nmol/L) Toxicity >100 ng/mL (>250 nmol/L) Performed By: #### L 503.0105, L503.6550, L503.6030, L506.1000 #### [facility] [place], [address] [facility] 02-06-2024 [facility] CASSYJ LUIS R ([id number]) 1950 M Date Time Provider Department 02/06/24 [facility] During your visit today, we recorded the following information about you: Norma Rogers MA 02/06/2024 9:49 AM Signed Type of letter/form/fax request - 90 day order for adult daycare Form received from fax on 1 floor and placed on MD desk (Dr. Patel) for completion. Completed form needs to be faxed to [facility] at [phone].. Route to [place] when form completed for processing Norma Rogers MA 02/06/2024 3:28 PM Signed Form faxed. Norma Rogers MA Allergies As of Date: 02/06/2024 Noted Allergy Reaction SEASONAL ALLERGIES 03/13/2012 14 - Other: See Comments Date Reviewed: 10/20/2023 Reviewed by: Julieta Mckay MA - Fully Assessed Reason for Visit: Forms [943] Cmt: [facility] 90 day order Prescriptions as of 02/06/2024 - levothyroxine (LEVOXYL) 100 mcg tablet Take 1 tablet by mouth once daily. Take on empty stomach. For Thyroid - carBAMazepine (TEGRETOL) 200 mg tablet one tablet every AM, and 2 every evening - fluticasone-salmetero l (ADVAIR DISKUS) 500-50 mcg/dose dsdv Inhale 1 Puff as instructed two times a day. - levETIRAcetam (KEPPRA) 500 mg tablet Take 1 tablet by mouth two times a day. 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.89] 12/02/2016 Hypothyroidism, acquired [E03.9] 09/07/2017 History of brain disorder [Z86.69] 03/15/2018 Obesity, Class II, BMI 35-39.9 [E66.9] 03/15/2018 Dizziness [R42] 07/14/2023 Balance problem [R26.89] 07/14/2023 Abnormality of gait [R26.9] 07/14/2023 Vasovagal syncope [R55] 08/28/2023 Palpitations [R00.2] 08/28/2023 Encounter Status:Closed by NORMA ROGERS on 02/06/24 [facility] CNOVon 10-20-2023 CNOV Office Visit (FAMPWS ) J LUIS MADERA ([id number]) 1950 M Date Time Provider Department 10/20/23 2:00 PM USMAN PATEL During your visit today, we recorded the following information about you: Pulse Respiration Blood pressure Weight 82/minute 18/minute 122/74 91.4 kg Usman Patel MD 10/20/2023 2:58 PM Signed Chief Complaint Patient presents with: F/U 3 Month HPI JLuis Madera is a 73 year old male who presents here today for a 3 month follow up. Pt here today for a 3 month follow up. Last seen in office after he was discharged from the Hospital. Balance - Was referred to PT due to ongoing issues with his balance and feeling unsteady on his feet. Did complete two sessions per Epic, but pt states he was just extended for 4 more visits. Uses a cane when ambulating. Neuro - Was referred to Neurology due to ongoing issues of dizziness and hx. Pt hx of cerebral palsy, generalized convulsive epilepsy/seizures, chronic right spastic hemiparesis/weakness and imbalance. Pt has labs and imaging ordered at [facility] with Neuro in July. MRI Brain, Consult to Neuro and Cardiology was done as well. Pt was advised to f/u in 3 months. Pt currently taking Tegretol 200 mg 1 tab in the am and 2 in the pm and Keppra 500 mg 1 tab po bid. Cardio - Was seen by Dr. Mccrary on 08/28/23 for dizziness and syncope and collapse. At visit and with pt's symptoms an Echo, US Carotid arteries b/l and Zio were ordered. Pt to f/u in 3 months. Thyroid - Pt on current regimen of Levothyroxine 100 mcg once daily. Reports he feels okay on current dosage. Denies any missed dosages feels stable on this dosage. Breathing stable. HM - Currently checking into Adv Dir/Living Will at this time. Declines Covid vaccine at this time. Past medical history, appointments, medications, allergies reviewed. Previous Medical History PAST MEDICAL HISTORY Diagnosis Date ASA CLASS III 05/10/2002 Benign neoplasm of colon Cerebral palsy (HCC) 06/27/2014 COPD with chronic bronchitis 12/02/2016 Debility Diarrhea Hypoxia 2018 Infantile cerebral palsy, unspecified Other convulsions Partial small bowel obstruction (HCC) 06/27/2014 Peroneal DVT (deep venous thrombosis) (HCC) 09/05/2013 Right spastic hemiparesis (HCC) 06/27/2014 Screening for malignant neoplasm of colon 02/01/2016 Seasonal allergic rhinitis Spring through . Seizures (HCC) Small bowel obstruction (HCC) Suspected chronic obstructive pulmonary disease based on initial evaluation (HCC) 2018 Previous Surgical History PAST SURGICAL HISTORY Procedure Laterality Date COLONOSCOPY FLX DX W/COLLJ SPEC WHEN PFRMD 02/01/2016 Repeat 01/2026 COLSC FLX W/RMVL OF TUMOR POLYP LESION SNARE TQ 02/05/10 COLSC FLX W/RMVL OF TUMOR POLYP LESION SNARE TQ 04/02/12 CRANIECTOMY/CRANIOTOM Y EXPL SUPRATENTORIAL 1980 Craniotomy LAPAROSCOPY COLECTOMY PARTIAL W/ANASTOMOSIS 03-17-10 PAST SURGICAL HISTORY OF Mid-60's Rt. hand AND Rt foot surgery to correct defect Family History FAMILY HISTORY Problem Relation Age of Onset Hypertension Father Breast Cancer Mother Allergies Mother Hay fever. None Sister Asthma Paternal Grandmother Patient Allergies ALLERGIES Allergen Reactions Seasonal Allergies Other: See Comments Current Medications Current Outpatient Medications on File Prior to Visit Medication Sig levothyroxine (LEVOXYL) 100 mcg tablet Take 1 tablet by mouth once daily. Take on empty stomach. For Thyroid carBAMazepine (TEGRETOL) 200 mg tablet one tablet every AM, and 2 every evening fluticasone-salmetero l (ADVAIR DISKUS) 500-50 mcg/dose dsdv Inhale 1 Puff as instructed two times a day. levETIRAcetam (KEPPRA) 500 mg tablet Take 1 tablet by mouth two times a day. No current facility-administered medications on file prior to visit. Social History Social History Tobacco Use Smoking status: Former Packs/day: 1.50 Years: 40.00 Additional pack years: 0.00 Total pack years: 60.00 Types: Cigarettes Start date: 1968 Quit date: 05/09/2007 Years since quittin.4 Smokeless tobacco: Never Tobacco comments: Father smoked in childhood home. Prior roomate smoked. Substance Use Topics Alcohol use: Yes Comment: Very occasionally. Drug use: No EXAM: BP 122/74 (BP Site: Left Arm, BP Position: Sitting, BP Cuff Size: Large Adult) Pulse 82 Resp 18 Wt 91.4 kg (201 lb 6.4 oz) BMI 35.68 kg/m? General Appearance: Well appearing, alert, in no acute distress, well-hydrated, well nourished. and cerebral palsy. Lungs: Lungs clear to auscultation. No wheezing, rhonchi, rales.. Heart: RRR without murmur, gallop, or rubs. No ectopy. Health Maintenance List Shingrix Vaccine(1 of 2) Never done RSV Vaccine(1 - 1-dose 60+ series) Never done Covid-19 Vaccine(2022- season) due on 03/17/2023 Advance Directive Dis (more content not included)... Normal [facility] HbA1c (Bld)on 10-20-2023 Average glucose Estimated from glycated hemoglobin (Bld) [Mass/Vol] 123 mg/dL Normal [facility] Comment on above: Order Comment: Emil obrien Type: BLOOD SPECIMENOrdering Facility: [facility] Address: [address] [place] [address] Result Comment: eAG: (Estimated average glucose) is a calculated value from HgbA1c and is manufacturers service representative of the average blood glucose level in the last 2-3 month period. Performed By: #### 5 5454-3 ####[facility] [id number] [place] [address] [place] [facility] HbA1c (Bld) [Mass fraction] 5.9 % High 4.3-5.6 [facility] Comment on above: Order Comment: Emil obrien Type: BLOOD SPECIMENOrdering Facility: [facility] Address: [address] [place] [address] Result Comment: Amer [place] Diabetes Association guidelines indicate that patients with HgbA1c in the range 5.7-6.4% are at increased risk for development of diabetes, and intervention by lifestyle modification may be beneficial. HgbA1c greater or equal to 6.5% is considered diagnostic of diabetes. Performed By: #### 5 5454-3 ####[facility] [id number] [place] [address] [place] TSH SerPl-aCncon 10-20-2023 TSH Qn 0.998 m[IU]/L Normal 0.270-4.200 [facility] Comment on above: Order Comment: Emil obrien Type: BLOOD SPECIMENOrdering Facility: [facility] Address: [address] [place] [address] Performed By: #### 3 016-3 ####[facility] [id number] [address] [place] Reg[place] 10-19-2023 CNPN Telephone (FAMPWS) J LUIS MADERA ([id number]) 1950 M Date Time Provider Department 10/19/23 USMAN PATEL [facility] During your visit today, we recorded the following information about you: Julieta Mckay MA 10/19/2023 9:29 AM Signed Type of form: 90 day order from [employer] Form received via fax When form is completed, Fax form to [phone] Form has been forwarded to Physician Desk: ALLISON Velazquez Rilee, MA 10/19/2023 11:56 AM Signed Form signed and faxed back to information below. Julieta Mckay MA Allergies As of Date: 10/19/2023 Noted Allergy Reaction SEASONAL ALLERGIES 03/13/2012 14 - Other: See Comments Date Reviewed: 08/28/2023 Reviewed by: Aiden Mccrary MD - Fully Assessed Reason for Visit: Forms [913] Cmt: Orders from [employer] - 90 day Prescriptions as of 10/19/2023 - levothyroxine (LEVOXYL) 100 mcg tablet Take 1 tablet by mouth once daily. Take on empty stomach. For Thyroid - carBAMazepine (TEGRETOL) 200 mg tablet one tablet every AM, and 2 every evening - fluticasone-salmetero l (ADVAIR DISKUS) 500-50 mcg/dose dsdv Inhale 1 Puff as instructed two times a day. - levETIRAcetam (KEPPRA) 500 mg tablet Take 1 tablet by mouth two times a day. Problem List As Of Date 10/19/2023 Noted Resolved ASA CLASS III [1003] 05/10/2002 10/30/2018 Generalized convulsive epilepsy (HCC) [G40.309] 10/02/2006 Benign Neoplasm of Colon [D12.6] 02/05/2010 Peroneal DVT (deep venous thrombosis) [I82.459] 09/05/2013 06/27/2014 Partial small bowel obstruction (HCC) [K56.600] 06/27/2014 12/02/2016 Right spastic hemiparesis (HCC) [G81.11] 06/27/2014 Cerebral palsy (HCC) [G80.9] 06/27/2014 Imbalance [R26.89] 10/21/2016 COPD with chronic bronchitis (HCC) [J44.89] 12/02/2016 Hypothyroidism, acquired [E03.9] 09/07/2017 History of brain disorder [Z86.69] 03/15/2018 Obesity, Class II, BMI 35-39.9 [E66.9] 03/15/2018 Dizziness [R42] 07/14/2023 Balance problem [R26.89] 07/14/2023 Abnormality of gait [R26.9] 07/14/2023 Vasovagal syncope [R55] 08/28/2023 Palpitations [R00.2] 08/28/2023 Encounter Status:Closed by JULIETA MCKAY on 10/19/23 Normal [facility] US CAROTID ARTERIES BRIGHT VAS LABon 09-19-2023 US CAROTID ARTERIES BRIGHT VAS LAB Non-Invasive Vascular Laboratory [facility] Carotid Duplex Bilateral/Complete Date of service/time: 09/19/2023 12:35:52 PM Name: MR. J LUIS MADERA Date of : 1950 Age: 73 years Gender: M Clinical Indication Syncope. TECHNIQUE -------- A carotid duplex ultrasound examination was performed, including grayscale imaging and color Doppler and spectral Doppler examination of the below mentioned arteries. FINDINGS -------- RIGHT SIDE Common carotid artery: Proximal: PSV: 119 cm/s. EDV: 15 cm/s. Mid: PSV: 129 cm/s. EDV: 22 cm/s. Distal: PSV: 116 cm/s. EDV: 20 cm/s. Internal carotid artery: Origin: PSV: 93 cm/s. EDV: 14 cm/s. Proximal: PSV: 93 cm/s. EDV: 17 cm/s. Mid: PSV: 51 cm/s. EDV: 13 cm/s. Distal: PSV: 74 cm/s. EDV: 21 cm/s. Mild heterogeneous plaque at proximal. ICA/CCA Ratio: 0.8 External carotid artery: Proximal: PSV: 87 cm/s. EDV: 8 cm/s. Subclavian artery: Proximal: PSV: 110 cm/s. EDV: 0 cm/s. Vertebral artery: PSV: 47 cm/s. EDV: 12 cm/s. LEFT SIDE Common carotid artery: Proximal: PSV: 120 cm/s. EDV: 27 cm/s. Mid: PSV: 110 cm/s. EDV: 19 cm/s. Distal: PSV: 98 cm/s. EDV: 17 cm/s. Mild heterogeneous plaque at distal. Internal carotid artery: Origin: PSV: 78 cm/s. EDV: 19 cm/s. Proximal: PSV: 81 cm/s. EDV: 14 cm/s. Mid: PSV: 81 cm/s. EDV: 23 cm/s. Distal: PSV: 80 cm/s. EDV: 26 cm/s. Mild heterogeneous plaque at origin. ICA/CCA Ratio: 0.8 External carotid artery: Proximal: PSV: 94 cm/s. EDV: 14 cm/s. Subclavian artery: Proximal: PSV: 170 cm/s. EDV: 0 cm/s. Vertebral artery: PSV: 31 cm/s. EDV: 7 cm/s. IMPRESSION Technically difficult exam due to patient's body habitus. RIGHT SIDE Common carotid artery: Patent. Internal carotid artery: 20-39% stenosis. External carotid artery: Patent. Vertebral artery: Patent and antegrade flow noted. Innominate artery: Not visualized. Subclavian artery: Patent. LEFT SIDE Common carotid artery: Plaque visualized without evidence of hemodynamically significant stenosis. Internal carotid artery: 20-39% stenosis. External carotid artery: Patent. Vertebral artery: Patent and antegrade flow noted. Subclavian artery: Patent. Technologist: Eugenia Wells BA, RVT Ordering physician: AIDEN MCCRARY Interpreting physician: MANISHA Melendez DO Final [employer] Medical Image : [id number] micsSISUID See Link below for Image Normal [facility] ECHOon 09-05-2023 Echocardiography Echocardiography Report: Transthoracic Echo [facility] Date of service: 09/05/2023 1:10:31 PM OF ADMISSIONS Ordering physician: AIDEN MCCRARY Indication: Syncope Technologist: Dayna Riojas [facility] Interpreting physician: Livan Flores DO PATIENT: Name: MR. J LUIS MADERA : 1950 Age: 73 years Gender: M Primary rhythm: sinus. Height: 160.00 cm BSA: 2.02 m Weight: 91.63 kg BMI: 35.8 kg/m Heart rate 86 bpm Technically difficult exam due to body habitus. Color Doppler was utilized to interrogate the cardiac valves assessed and spectral Doppler was utilized to determine the flow velocities and pressure gradients reported in this exam. MEASUREMENTS: Value Indexed Normal Max aortic dimension 2.6 cm Ao < 3.8 LV ID (diastole) 4.4 cm (2D) 2.17 cm/m LV ID (systole) 2.8 cm (2D) 1.37 cm/m IVS, leaflet tips 0.9 cm (2D) Posterior wall thickness 1.0 cm (2D) Left ventricular mass 137 g (2D) 68 g/m Ejection Fraction 55 % (visual est.) EF > 52 FINDINGS: LEFT VENTRICLE The left ventricle is normal in size. Left ventricular systolic function is normal. Grade I left ventricular diastolic dysfunction. Mitral annular lateral E/e': 10.1. Mitral annular septal E/e': 8.6. Wall Motion: All scored segments are normal. RIGHT VENTRICLE The right ventricle is normal in size. Right ventricular systolic function is normal. RV systolic tissue Doppler velocity is 10.0 cm/s. Estimated right atrial pressure is not included as the IVC was not seen. LEFT ATRIUM Unable to reliably measure LA volume due to technical limitations. RIGHT ATRIUM Unable to reliably measure RA volume due to technical limitations. MITRAL VALVE The mitral valve leaflets are structurally normal. There is no mitral valve regurgitation. The pressure half time is 54 msec. The peak mitral E/A ratio is 0.74. The average mitral E/e' ratio is 9.4. The mitral flow deceleration time is 186 msec. TRICUSPID VALVE The tricuspid valve leaflets are structurally normal. There is no tricuspid valve regurgitation. AORTIC VALVE The aortic valve cusps are structurally normal. There is no aortic valve regurgitation. Tricuspid aortic valve. The peak gradient is 5 mmHg (peak velocity = 108.9 cm/s). PULMONIC VALVE The pulmonic valve cusps are structurally normal. There is no pulmonic valve regurgitation. AORTA The visualized aorta is normal in size. Measurements - Mid ascending aorta 2.6 cm. PERICARDIUM There is no pericardial effusion. There is an epicardial fat pad. CONCLUSIONS: - Technically difficult exam due to body habitus. - Exam indication: Syncope - The left ventricle is normal in size. Left ventricular systolic function is normal. EF = 55 5% (visual est.) Grade I left ventricular diastolic dysfunction. - The right ventricle is normal in size. Right ventricular systolic function is normal. - There are no significant valvular abnormalities. - Definity unavailable. - The patient has not had a prior CC echocardiographic exam for comparison. * * * Final * * * CC [facility] [employer] Medical Image : [id number] micsSISUID Normal [facility] CNOVon 08-28-2023 CNOV Office Visit (CAWSTR ) J LUIS MADERA ([id number]) 1950 M Date Time Provider Department 08/28/23 10:20 AM AIDEN MCCRARY During your visit today, we recorded the following information about you: Pulse Respiration Blood pressure Weight 71/minute 16/minute 151/64 91.6 kg Aiden Mccrary MD 08/28/2023 11:43 AM Signed [facility] Cardiology ([facility]) [address] [facility] [address] OUTPATIENT VISIT DATE 08/28/2023 PRIMARY CARE PHYSICIAN: Usman Patel [address] [place] [address] REFERRING PHYSICIAN: Temitope Lara [address] [facility] [address] CHIEF COMPLAINT: Dizziness HISTORY OF PRESENT ILLNESS: Mr. Madera is a 73 year old gentleman with the history of cerebral palsy right-sided weakness who is referred for evaluation of palpitations and dizziness. Patient reports having lightheaded symptoms for the past 2 years. He is of intermittent symptoms of lightheadedness that occur mostly with ambulation. He was seen in the emergency room and June at which time he had vertiginous symptoms with room spinning. Although, most of his episodes of lightheadedness are not associated with room spinning. On occasion he will feel his heart racing. He has not had symptoms of chest pain or pressure. He has had chronic shortness of breath on exertion which he blames on a prior smoking history. 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 Seizures (HCC) Small bowel obstruction (HCC) Suspected chronic obstructive pulmonary disease based on initial evaluation (HCC) 2018 PAST SURGICAL HISTORY Procedure Laterality Date COLONOSCOPY FLX DX W/COLLJ SPEC WHEN PFRMD 02/01/2016 Repeat 01/2026 COLSC FLX W/RMVL OF TUMOR POLYP LESION SNARE TQ 02/05/10 COLSC FLX W/RMVL OF TUMOR POLYP LESION SNARE TQ 04/02/12 CRANIECTOMY/CRANIOTOM Y EXPL SUPRATENTORIAL 1980 Craniotomy LAPAROSCOPY COLECTOMY PARTIAL W/ANASTOMOSIS 03-17-10 PAST SURGICAL HISTORY OF Mid-60s Rt. hand AND Rt foot surgery to correct defect SOCIAL HISTORY Social History Tobacco Use Smoking status: Former Packs/day: 1.50 Years: 40.00 Additional pack years: 0.00 Total pack years: 60.00 Types: Cigarettes Start date: 1968 Quit date: 05/09/2007 Years since quittin.3 Smokeless tobacco: Never Tobacco comments: Father smoked in childhood home. Prior roomate smoked. Substance Use Topics Alcohol use: Yes Comment: Very occasionally. Drug use: No FAMILY HISTORY Problem Relation Age of Onset Hypertension Father Breast Cancer Mother Allergies Mother Hay fever. None Sister Asthma Paternal Grandmother ALLERGIES: ALLERGIES Allergen Reactions Seasonal Allergies Other: See Comments MEDICATIONS: levothyroxine (LEVOXYL) 100 mcg tablet Take 1 tablet by mouth once daily. Take on empty stomach. For Thyroid carBAMazepine (TEGRETOL) 200 mg tablet one tablet every AM, and 2 every evening fluticasone-salmetero l (ADVAIR DISKUS) 500-50 mcg/dose dsdv Inhale 1 Puff as instructed two times a day. levETIRAcetam (KEPPRA) 500 mg tablet Take 1 tablet by mouth two times a day. REVIEW OF SYSTEMS: Review of Systems Constitutional: Negative for chills, fever, malaise/fatigue and weight loss. HENT: Negative for hearing loss and sore throat. Eyes: Negative for blurred vision and double vision. Respiratory: Negative. Cardiovascular: Positive for palpitations. Genitourinary: Negative for dysuria, frequency, hematuria and urgency. Musculoskeletal: Negative. Skin: Negative. Neurological: Positive for dizziness. Negative for seizures, loss of consciousness, weakness and headaches. Endo/Heme/Allergies: Negative for environmental allergies. Does not bruise/bleed easily. Psychiatric/Behaviora l: Negative for depression. PHYSICAL EXAMINATION: BP 151/64 Pulse 71 Resp 16 Wt 202 lb (91.6kg) SpO2 100% General: Pleasant gentleman sitting appears comfortable no apparent distress. He is alert and oriented x 3 HEENT: Carotid upstrokes are brisk bilaterally without bruits no JVD appreciated. Pulmonary: Lungs are clear no rales, wheezes, rhonchi Cardiovascular: Normal S1, S2 with (more content not included)... Normal [facility] MRI CERVICAL SPINE WO IVCONo n 08-15-2023 MRI CERVICAL SPINE WO IVCON * * *Final Report* * * DATE OF EXAM: Aug 15 2023 2:12PM [id number] [id number] - MRI CERVICAL SPINE WO IVCON / PROCEDURE REASON: Spinal stenosis of cervical region * * * * Physician Interpretation * * * * EXAMINATION: MRI CERVICAL SPINE WO IVCON CLINICAL HISTORY: Spinal stenosis of cervical region TECHNIQUE: Routine cervical spine MR protocol without gadolinium. MQ: [id number] COMPARISON: None. RESULT: Counting reference: Craniocervical junction. Anatomic Variants: None. Localizer images: No additional findings Alignment: Alignment is anatomic. Craniocervical junction: Craniocervical junction is normal. Cord: The visualized cord is within normal limits of signal intensity and morphology. Bone marrow signal/fracture: No evidence of pathologic marrow infiltration. No evidence of prior fracture. Cervical soft tissues: The paraspinal soft tissues are within normal limits. C2-C3: Mild disc height loss. Canal and foramina are patent. C3-C4: Mild disc height loss. Endplate hypertrophy causes moderate canal stenosis. Facet and uncinate degenerative change cause mild bilateral foraminal narrowing. C4-C5: Mild disc height loss. Endplate hypertrophy causes severe canal stenosis and facet and uncinate hypertrophy cause mild bilateral foraminal narrowing. C5-C6: Mild disc height loss. Moderate to severe canal stenosis from endplate hypertrophy with moderate bilateral foraminal narrowing from facet and uncinate degenerative change. C6-C7: Mild disc height loss. Moderate to severe bilateral foraminal narrowing from facet and uncinate degenerative change with moderate canal stenosis from endplate hypertrophy. C7-T1: Mild disc height loss. Canal and foramina are patent. IMPRESSION: Advanced spondylosis with endplate hypertrophy causing moderate to severe canal stenosis at C3-4 C4-5 and C5-6. No cord signal abnormality on the current examination. Degrees of foraminal narrowing detailed in the body the report. Anatomic Variant: None. Assume 7 cervical vertebrae with counting from the craniocervical junction. Product Merchandiser: JUJU Transcribe Date/Time: Aug 15 2023 2:23P Dictated by : SHIRIN PRADO MD This examination was interpreted and the report reviewed and electronically signed by: SHIRIN PRADO MD on Aug 15 2023 2:25PM EST [id number] Normal [facility] CNPNon 08-14-2023 CNPN Telephone (4CQ) J LUIS MADERA ([id number]) 1950 M Date Time Provider Department 08/14/23 USMAN PATEL 4CQ During your visit today, we recorded the following information about you: Batsheva Parry 08/14/2023 2:32 PM Signed Patient is requesting new PT order for Dizziness [R42] Balance problem [R26.89] Abnormality of gait [R26.9] And then would like this order faxed to [facility] as [facility] is to far to travel for the patient. Usman Patel MD 08/14/2023 3:22 PM Signed Order printed MD Ken Fraire Ma, Kathryn 08/14/2023 3:40 PM Signed Order faxed to [facility] [place]. Detailed message left on pt identified VM that this was faxed and he can call to schedule. Norma Rogers Ma Allergies As of Date: 08/14/2023 Noted Allergy Reaction SEASONAL ALLERGIES 03/13/2012 14 - Other: See Comments Date Reviewed: 07/19/2023 Reviewed by: Temitope Lara PA-C - Fully Assessed Reason for Visit: Orders [681] Primary Visit Diagnosis:Right spastic hemiparesis (HCC) [G81.11] Other Visit Diagnoses:Cerebral palsy, unspecified type (HCC) [G80.9] Imbalance [R26.89] Dizziness [R42] Order(s):CONSULT TO PHYSICAL THERAPY [9032] Order #: [id number]: 1 FUTURE Prescriptions as of 08/14/2023 - levothyroxine (LEVOXYL) 100 mcg tablet Take 1 tablet by mouth once daily. Take on empty stomach. For Thyroid - carBAMazepine (TEGRETOL) 200 mg tablet one tablet every AM, and 2 every evening - fluticasone-salmetero l (ADVAIR DISKUS) 500-50 mcg/dose dsdv Inhale 1 Puff as instructed two times a day. - levETIRAcetam (KEPPRA) 500 mg tablet Take 1 tablet by mouth two times a day. Problem List As Of Date 08/14/2023 Noted Resolved ASA CLASS III [1003] 05/10/2002 10/30/2018 Generalized convulsive epilepsy (HCC) [G40.309] 10/02/2006 Benign Neoplasm of Colon [D12.6] 02/05/2010 Peroneal DVT (deep venous thrombosis) [I82.459] 09/05/2013 06/27/2014 Partial small bowel obstruction (HCC) [K56.600] 06/27/2014 12/02/2016 Right spastic hemiparesis (HCC) [G81.11] 06/27/2014 Cerebral palsy (HCC) [G80.9] 06/27/2014 Imbalance [R26.89] 10/21/2016 COPD with chronic bronchitis (HCC) [J44.89] 12/02/2016 Hypothyroidism, acquired [E03.9] 09/07/2017 History of brain disorder [Z86.69] 03/15/2018 Obesity, Class II, BMI 35-39.9 [E66.9] 03/15/2018 Dizziness [R42] 07/14/2023 Balance problem [R26.89] 07/14/2023 Abnormality of gait [R26.9] 07/14/2023 Encounter Status:Closed by NORMA ROGERS MA on 08/14/23 [facility] CNTHERAPYon 08-08-2023 CNTHERAPY OT/PT/Speech Visit (LDPT) J LUIS MADERA ([id number]) 1950 M Date Time Provider Department 08/08/23 1:30 PM MARY KAY BAIRES Date Time Provider Department Center 08/08/2023 1:30 PM [id number] KAY BAIRES [facility] Reason for Visit: PT Progress Note [1596] PT Discharge [752] Primary Visit Diagnosis:Abnormality of gait [R26.9] Other Visit Diagnoses:Dizziness [R42] Balance problem [R26.89] Allergies As of Date: 08/08/2023 Noted Allergy Reaction SEASONAL ALLERGIES 03/13/2012 14 - Other: See Comments Date Reviewed: 07/19/2023 Reviewed by: Temitope Lara PA-C - Fully Assessed Prescriptions as of 10/05/2023 - levothyroxine (LEVOXYL) 100 mcg tablet Take 1 tablet by mouth once daily. Take on empty stomach. For Thyroid - carBAMazepine (TEGRETOL) 200 mg tablet one tablet every AM, and 2 every evening - fluticasone-salmetero l (ADVAIR DISKUS) 500-50 mcg/dose dsdv Inhale 1 Puff as instructed two times a day. - levETIRAcetam (KEPPRA) 500 mg tablet Take 1 tablet by mouth two times a day. Hooker Machine Tender: Addendum Therapy (PT/OT/Speech/Resp) ID: [id number] 08/08/2023 2:14 PM Author: MARY KAY BAIRES Signed by MARY KAY BAIRES PT, DPT on 08/08/2023 at 2:14 PM * * * This document replaces document [id number] * * * Document text: Program_ID:[id number] Access Code: [email or web address] URL: [email or web address]/ Date: 08-08-2023 Prepared By: Mary Kay Baires Program Notes Exercises - Sit to Stand with Armchair - x daily - 7 x weekly - 2 sets - 10 reps - Seated Heel Toe Raises - 2 x daily - 7 x weekly - 2 sets - 10 reps - Seated Long Arc Quad - 2 x daily - 7 x weekly - 2 sets - 10 reps ----- Normal [facility] THERAPY NTon 08-08-2023 THERAPY NT HNO ID: [id number] Author: MARY KAY BAIRES, PT, DPT Service: ? Author Type: Physical Therapist Type: Therapy (PT/OT/Speech/Resp) Filed: 08/08/2023 14:06 Note Text: Program_ID:[id number] Access Code: [email or web address] URL: [email or web address] Date: 08-08-2023 Prepared By: Mary Kay Baires Program Notes Exercises - Sit to Stand with Armchair - x daily - 7 x weekly - 2 sets - 10 reps Normal [facility] CNPNon 07-20-2023 GERAN Telephone (NE50MN) J LUIS MADERA ([id number]) 1950 M Date Time Provider Department 07/20/23 YEN STAUFFER NE50MN During your visit today, we recorded the following information about you: Caity Cai 07/20/2023 10:01 AM Signed Allergies As of Date: 07/20/2023 Noted Allergy Reaction SEASONAL ALLERGIES 03/13/2012 14 - Other: See Comments Date Reviewed: 07/19/2023 Reviewed by: Temitope Lara PA-C - Fully Assessed Reason for Visit: Future Appointment [256] Cmt: New Pt, [place], Any Prescriptions as of 07/20/2023 - iv contrast (will be provided with radiology test) MRI Brain Inject, intravenously, once for 1 dose.No IV access, insert saline lock prior to beginning of sedation, infusion, injection of imaging exam.Discontinue saline lock post exam. If Pt. has a central line or IVAD, may access for administration according to line specific nursing protocol.Once exam is complete flush line and de-access according to line specific nursing protocol in the MR contrast administration guidelines link - levothyroxine (LEVOXYL) 100 mcg tablet Take 1 tablet by mouth once daily. Take on empty stomach. For Thyroid - carBAMazepine (TEGRETOL) 200 mg tablet one tablet every AM, and 2 every evening - fluticasone-salmetero l (ADVAIR DISKUS) 500-50 mcg/dose dsdv Inhale 1 Puff as instructed two times a day. - levETIRAcetam (KEPPRA) 500 mg tablet Take 1 tablet by mouth two times a day. Problem List As Of Date 07/20/2023 Noted Resolved ASA CLASS III [1003] 05/10/2002 10/30/2018 Generalized convulsive epilepsy (HCC) [G40.309] 10/02/2006 Benign Neoplasm of Colon [D12.6] 02/05/2010 Peroneal DVT (deep venous thrombosis) [I82.459] 09/05/2013 06/27/2014 Partial small bowel obstruction (HCC) [K56.600] 06/27/2014 12/02/2016 Right spastic hemiparesis (HCC) [G81.11] 06/27/2014 Cerebral palsy (HCC) [G80.9] 06/27/2014 Imbalance [R26.89] 10/21/2016 COPD with chronic bronchitis (HCC) [J44.89] 12/02/2016 Hypothyroidism, acquired [E03.9] 09/07/2017 History of brain disorder [Z86.69] 03/15/2018 Obesity, Class II, BMI 35-39.9 [E66.9] 03/15/2018 Dizziness [R42] 07/14/2023 Balance problem [R26.89] 07/14/2023 Abnormality of gait [R26.9] 07/14/2023 Encounter Status:Closed by CAITY CAI on 07/20/23 [facility] CNOVon 07-19-2023 CNOV Office Visit (NEMOWS ) J LUIS MADERA ([id number]) 1950 M Date Time Provider Department 07/19/23 2:30 PM TEMITOPE LARA During your visit today, we recorded the following information about you: Pulse Respiration Blood pressure Weight 74/minute 18/minute 125/78 90.3 kg Temitope Lara PA-C 07/19/2023 4:16 PM Signed [facility] Out[facility] Date: July 19, 2023 Patient Name: J Luis Madera Referring physician: Usman Patel [address] [phone] Consult requested for dizziness by Dr. Patel. Recommendations will be communicated via shared medical record or US mail. Primary physician: Usman Patel [address] [place] [address] Reason for Evaluation: Dizziness and seizures Subjective HPI: History is limited J Luis Madera is a 73 year old left-handed male with history of epilepsy, CP, imbalance, COPD, hypothyroidism, obesity, possible cerebellar infarct who presents for evaluation of gait change, dizziness. Dr. Patel is the referring physician and PCP. 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 He is here for established care with [facility] epilepsy department again. No seizure was reported since the last visit. (according to the last note, last seizure was in 2006). Patient denies any side effect of medications. 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 Saw PCP on 07/04/23, admitted on 06/25/23 for dizziness, meclizine. Positional dizziness, feels drunk. Sent to PT. ER visit on 06/23/23 "Patient presents to the emergency department complaint of dizziness that started yesterday. Patient states that it gets worse with standing and feels like sometimes things go around and round. Patient states he gets better when he lies down. He had similar episodes in the past but typically resolve after 24 hours. Patient denies any chest pain or shortness of breath. Denies any falls or head injuries. He denies recent illness. Denies any blood in stool or black tarry stool. Patient has history of cerebral palsy but normally ambulates on his own. " Patient presents for evaluation of dizziness and unsteadiness. Patient reports has been ongoing for many years, but had an episode of loss of consciousness on 06-23-2023. States he lives with his niece, stood up and had an episode of syncope. His niece called EMS and he was transported [facility]. Reported that his dizziness gets worse with standing but denies any presyncope or lightheaded sensation, described more of a room spinning dizziness. Improves when he sits down or lays down, has difficulty stating how often it occurs but notes that he falls from this dizziness once or twice a month. MRI obtained at [facility] showed no acute infarct and stable chronic changes. Patient does not remember much about his admission, states that no scans were obtained and has difficulty remembering. Notes that he has passed out in the past secondary to this dizziness and he estimates the last occurrence was 6 to 12 months ago. Denies any cardiac workup, states that he saw management rep when he was a child but none in his adult life. Denies any chest pain or palpitations. Patient saw his primary care provider on 07-04-2023 and sent to vestibular therapy. States he is completed a few episodes of this with some improvement in his symptoms. However, notes that [place] 35 miles from [place] and he is expressing concern with this. Drinks about 2 to 3 cups of water a day, 1-2 caffeinated beverages a day. Denies any numbness or tingling in his extremities or in his groin, but states he will occasionally get numbness and tingling on his head. Denies any history of diabetes, does not take any supplements, no heavy alcohol use that he can remember, no heavy metal exposure, no family history of neuropathy. Has chronic weakness on his right side (originally states that this weakness has only been prominent for a few years, but later states he was born with it ), more prominent in his arm and his leg, but notes this may have worsened over the last few months. However, feels this may be due to the fall he sustained in early June, states he fell on his right side injuring his right shoulder. No bowel bladder incontinence, no saddle anesthesia. States he still able to button buttons and open jars, full strength in his left upper extremity. Patient also with history of epilepsy. States he skelton (more content not included)... Normal [facility] CNPNon 07-19-2023 [facility] Telephone (FAMWS) J LUIS MADERA ([id number]) 1950 M Date Time Provider Department 07/19/23 TEMITOPE LARA [facility] During your visit today, we recorded the following information about you: Jarvis Osborn 07/19/2023 3:55 PM Signed Per our management I was just letting you know I was unable to schedule a pt for something that was ordered. For J Luis I am unable to schedule for the epilepsy center so I called them to reach out to him to schedule an appointment with his information. That is what the system told me to do but everything else was scheduled. Thank you! Brenda Lundy LPN 07/19/2023 4:43 PM Signed Epilepsy center will contact pt to schedule. Brenda Lundy LPN Allergies As of Date: 07/19/2023 Noted Allergy Reaction SEASONAL ALLERGIES 03/13/2012 14 - Other: See Comments Date Reviewed: 07/19/2023 Reviewed by: Temitope Lara PA-C - Fully Assessed Reason for Visit: Appointment [186] Prescriptions as of 07/19/2023 - iv contrast (will be provided with radiology test) MRI Brain Inject, intravenously, once for 1 dose.No IV access, insert saline lock prior to beginning of sedation, infusion, injection of imaging exam.Discontinue saline lock post exam. If Pt. has a central line or IVAD, may access for administration according to line specific nursing protocol.Once exam is complete flush line and de-access according to line specific nursing protocol in the MR contrast administration guidelines link - levothyroxine (LEVOXYL) 100 mcg tablet Take 1 tablet by mouth once daily. Take on empty stomach. For Thyroid - carBAMazepine (TEGRETOL) 200 mg tablet one tablet every AM, and 2 every evening - fluticasone-salmetero l (ADVAIR DISKUS) 500-50 mcg/dose dsdv Inhale 1 Puff as instructed two times a day. - levETIRAcetam (KEPPRA) 500 mg tablet Take 1 tablet by mouth two times a day. Problem List As Of Date 07/19/2023 Noted Resolved ASA CLASS III [1003] 05/10/2002 10/30/2018 Generalized convulsive epilepsy (HCC) [G40.309] 10/02/2006 Benign Neoplasm of Colon [D12.6] 02/05/2010 Peroneal DVT (deep venous thrombosis) [I82.459] 09/05/2013 06/27/2014 Partial small bowel obstruction (HCC) [K56.600] 06/27/2014 12/02/2016 Right spastic hemiparesis (HCC) [G81.11] 06/27/2014 Cerebral palsy (HCC) [G80.9] 06/27/2014 Imbalance [R26.89] 10/21/2016 COPD with chronic bronchitis (HCC) [J44.89] 12/02/2016 Hypothyroidism, acquired [E03.9] 09/07/2017 History of brain disorder [Z86.69] 03/15/2018 Obesity, Class II, BMI 35-39.9 [E66.9] 03/15/2018 Dizziness [R42] 07/14/2023 Balance problem [R26.89] 07/14/2023 Abnormality of gait [R26.9] 07/14/2023 Encounter Status:Closed by BRENDA LUNDY on 07/19/23 Normal [facility] CRP SerPl-mCncon 07-19-2023 CRP [Mass/Vol] 1.3 mg/dL High <0.9 [facility] Comment on above: Order Comment: Speci men Type: BLOOD SPECIMENOrdering Facility: [facility] Address: [address] [place] [address] Performed By: #### 2 132-9, 1988-5, 2885-2 ####[facility] [id number] [place] [address] [place] ESR Westergren method (Bld) [Velocity]on 07-19-2023 ESR (Bld) [Velocity] 46 mm/h High 0-15 [facility] Comment on above: Order Comment: Speci men Type: BLOOD SPECIMENOrdering Facility: [facility] Address: [address] [place] [address] Performed By: #### 4 537-7 ####[facility] [id number] [place] [address] [place] Methylmalonate SerPl-sCncon 07-19-2023 Methylmalonate [Moles/Vol] 0.40 umol/L Normal <=0.40 [facility] Comment on above: Order Comment: Speci men Type: BLOOD SPECIMENOrdering Facility: [facility] Address: [address] [place] [address] Result Comment: This test was developed and its performance characteristics determined by [facility]'s Alon Gagnon [facility] [place] ([facility]). It has not been cleared or approved by the FDA. [facility] is regulated under CLIA as qualified to perform high-complexity testing. This test is used for clinical purposes. It should not be regarded as investigational or for research. Performed By: #### 1 3964-2 ####[facility] [id number] [place] [address] [place] PROTEIN ELECTROPHORESIS SERU M WITH ANGEL (P)on 07-19-2023 Albumin [Mass/Vol] 4.11 g/dL Normal 3.43-5.41 [facility] Comment on above: Order Comment: Speci men Type: BLOOD SPECIMENOrdering Facility: [facility] Address: [address] [place] [address] Performed By: #### L [id number] ####[facility] [id number] [place] [address] [place] Alpha 1 globulin Elph [Mass/Vol] 0.30 g/dL Normal 0.18-0.43 [facility] Comment on above: Order Comment: Speci men Type: BLOOD SPECIMENOrdering Facility: [facility] Address: [address] [place] [address] Performed By: #### L [id number] ####[facility] [id number] [place] [address] [place] Alpha 2 globulin Elph [Mass/Vol] 0.79 g/dL Normal 0.42-0.98 [facility] Comment on above: Order Comment: Speci men Type: BLOOD SPECIMENOrdering Facility: [facility] Address: [address] [place] [address] Performed By: #### L [id number] ####[facility] [id number] [place] [id number] [place] Beta globulin Elph [Mass/Vol] 0.89 g/dL Normal 0.61-1.17 [facility] Comment on above: Order Comment: Speci men Type: BLOOD SPECIMENOrdering Facility: [facility] Address: [address] [place] [address] Performed By: #### L [id number] ####[facility] [id number] [place] [address] [place] COMMENT (SERUM PROT ELECTRO) Monoclonal Protein analysis (immunofixation) is not indicated. Normal [facility] Comment on above: Order Comment: Speci men Type: BLOOD SPECIMENOrdering Facility: [facility] Address: [address] [place] [address] Performed By: #### L [id number] ####[facility] [id number] [address] [place] Gamma globulin Elph [Mass/Vol] 1.12 g/dL Normal 0.53-1.51 [facility] Comment on above: Order Comment: Speci men Type: BLOOD SPECIMENOrdering Facility: [facility] Address: [address] [place] [address] Performed By: #### L [id number] ####[facility] [id number] [address] [place] M-PROTEIN LOCATION Normal [facility] Comment on above: Order Comment: Speci men Type: BLOOD SPECIMENOrdering Facility: [facility] Address: [address] [place] [address] Result Comment: Not Applicable. Performed By: #### L [id number] ####[facility] [id number] [place] [address] [place] Protein Fractions [Interp] No definitive M protein is identified on protein electrophoresis. Normal No definitive M protein is identified on protein electrophores is. [facility] Comment on above: Order Comment: Speci men Type: BLOOD SPECIMENOrdering Facility: [facility] Address: [address] [place] [address] Performed By: #### L [id number] ####[facility] [id number] [place] [address] [place] Protein.monoclonal Elph [Mass/Vol] 0.00 g/dL Normal <=0.00 [facility] Comment on above: Order Comment: Speci men Type: BLOOD SPECIMENOrdering Facility: [facility] Address: [address] [place] [address] Performed By: #### L [id number] ####[facility] [id number] [place] [address] [place] SPE STAFF REVIEW Reviewed by Dr. Kira May MD [facility] Comment on above: Order Comment: Speci men Type: BLOOD SPECIMENOrdering Facility: [facility] Address: [address] [place] [address] Performed By: #### L [id number] ####[facility] [id number] [place] [address] [place] Prot SerPl-mCncon 07-19-2023 Protein [Mass/Vol] 7.2 g/dL Normal 6.3-8.0 [facility] Comment on above: Order Comment: Speci men Type: BLOOD SPECIMENOrdering Facility: [facility] Address: [address] [place] [address] Performed By: #### 2 132-9, 1987-11, 2884-08 ####[facility] [id number] [place] [address] [place] Vit B12 SerPl-mCncon 024 Cobalamin (Vitamin B12) [Mass/Vol] 285 pg/mL Normal 232-1245 [facility] Comment on above: Order Comment: Speci men Type: BLOOD SPECIMENOrdering Facility: [facility] Address: [address] [place] [address] Performed By: #### 2 132-9, 1987-11, 2884-08 ####[facility] [id number] [place] [id number] [place] CNTHERAPYon 07-14-2023 CNTHERAPY OT/PT/Speech Visit (LDPT) CASSYJ LUIS Gamez ([id number]) 1950 M Date Time Provider Department 07/14/23 3:00 PM ELSA JOAQUIN LDPT Date Time Provider Department Center 07/14/2023 3:00 PM [id number], GABRIEL*LDPT [facility] Reason for Visit: PT Eval [397] Primary Visit Diagnosis:Abnormality of gait [R26.9] Other Visit Diagnoses:Dizziness [R42] Balance problem [R26.89] Allergies As of Date: 07/14/2023 Noted Allergy Reaction SEASONAL ALLERGIES 03/13/2012 14 - Other: See Comments Date Reviewed: 07/04/2023 Reviewed by: Norma Rogers Ma - Fully Assessed Prescriptions as of 07/15/2023 - levothyroxine (LEVOXYL) 100 mcg tablet Take 1 tablet by mouth once daily. Take on empty stomach. For Thyroid - carBAMazepine (TEGRETOL) 200 mg tablet one tablet every AM, and 2 every evening - fluticasone-salmetero l (ADVAIR DISKUS) 500-50 mcg/dose dsdv Inhale 1 Puff as instructed two times a day. - levETIRAcetam (KEPPRA) 500 mg tablet Take 1 tablet by mouth two times a day. Normal [facility] Laboratory - Chemistry and C hemistry - challengeOrdered By: Kike Malave on 06-25-2023 Free T4 [Mass/Vol] 0.82 ng/dL 0.76-1.46 [facility] Absolute lymphocyte countOrd ered By: Raoul Oliver on 06-24-2023 Lymphocytes Auto (Unsp spec) [#/Vol] 1.39 10*3/uL 0.83-4.51 [facility] Basophil percentageOrdered B y: Raoul Oliver on 06-24-2023 Basophils/100 WBC (Bld) 1.2 % 0-1 [facility] Chloride [Moles/Vol] 111 mmol/L 98-107 [facility] Eosinophils/100 WBC (Bld) 5.3 % 0-5 [facility] Glucose [Mass/Vol] 105 mg/dL 74-106 [facility] Comment on above: Fasting Glucose resu lt from 100 to 125 mg/dL suggests IMPAIRED HOMEOSTASIS per A.D.A. criteria. Neutrophils (Bld) [#/Vol] 3.3 10*3/uL 2.0-7.7 [facility] Neutrophils/100 WBC (Bld) 57.0 % 47-70 [facility] Potassium [Moles/Vol] 3.8 mmol/L 3.5-5.1 [facility] Sodium [Moles/Vol] 140 mmol/L 136-145 [facility] WBC (Bld) [#/Vol] 5.7 10*3/uL 4.4-11.0 [facility] Blood erythrocytes count (nu mber/volume)Ordered By: Raoul Oliver on 06-24-2023 RBC (Bld) [#/Vol] 3.54 10*6/uL 4.6-6.2 [facility] Blood hemoglobin measurement (mass/volume)Ordered By: Raoul Oliver on 06-24-2023 Hemoglobin (Bld) [Mass/Vol] 11.4 g/dL 13.0-16.5 [facility] Blood lymphocytes/100 leukoc ytesOrdered By: Raoul Oliver on 06-24-2023 Lymphocytes/100 WBC (Bld) 24.4 % 19-41 [facility] Blood monocytes/100 leukocyt esOrdered By: Raoul Oliver on 06-24-2023 Monocytes/100 WBC (Bld) 11.4 % 0-10 [facility] Blood platelet mean volumeOr dered By: Raoul Oliver on 06-24-2023 Platelet mean volume (Bld) [Entitic vol] 10.0 fL 6.2-12.0 [facility] Determination of erythrocyte mean corpuscular volume (MCV)Ordered By: Raoul Oliver on 06-24-2023 MCV (RBC) [Entitic vol] 99.2 fL 80-94 [facility] Hematocrit Auto (Bld) [Volum e fraction]Ordered By: Raoul Oliver on 06-24-2023 Hematocrit (Bld) [Volume fraction] 35.1 % 40-54 [facility] Laboratory - Chemistry and C hemistry - challengeOrdered By: Raoul Oliver on 06-24-2023 CO2 [Moles/Vol] 26.0 mmol/L 21.0-32.0 [facility] Urea nitrogen/Creatinine [Mass ratio] 9.0 mg/mg 10-20 [facility] Laboratory - Hematology and Cell countsOrdered By: Raoul Oliver on 06-24-2023 Erythrocyte distribution width (RBC) [Entitic vol] 48.0 fL 35.1-43.9 [facility] Erythrocyte distribution width (RBC) [Ratio] 13.1 % 11.6-14.6 [facility] Immature granulocytes/100 WBC (Bld) 0.700 % 0.0-0.9 [facility] Comment on above: IG% - Immature Granu locytes (promyelocytes, myelocytes and metamyelocytes) > 1% indicates that a LEFT SHIFT is Present. MCH (RBC) [Entitic mass] 32.2 pg 27.0-32.0 [facility] Nucleated RBC/100 WBC (Bld) [Ratio] 0 % 0-5 [facility] MCHC Auto (RBC) [Mass/Vol]Or dered By: Raoul Oliver on 06-24-2023 MCHC (RBC) [Mass/Vol] 32.5 g/dL 32-36 [facility] No Panel InformationOrdered By: Raoul Oliver on 06-24-2023 Estimated Creatinine Clearance Calc 49.63 ml/min [facility] Estimated GFR (MDRD) Amer 84 mL/min >60 [facility] Comment on above: GFR Calc Estimated GFR (MDRD) Non-Af Amer 69 mL/min >60 [facility] Comment on above: Non- GFR Calc Platelets bldOrdered By: Main Oliver on 06-24-2023 Platelets (Bld) [#/Vol] 249 10*3/uL 150-450 [facility] Serum or plasma calcium marvin urement (mass/volume)Ordered By: Raoul Oliver on 06-24-2023 Calcium [Mass/Vol] 8.3 mg/dL 8.5-10.1 [facility] Serum or plasma creatinine m easurement (mass/volume)Ordered By: Raoul Oliver on 06-24-2023 Creatinine [Mass/Vol] 1.11 mg/dL 0.70-1.30 [facility] Comment on above: The validity of the calculated GFR & GFRAA in patients over 70 years has not been determined. Clinical correlation is essential. Serum or plasma urea nitroge n measurement (mass/volume)Ordered By: Raoul Oliver on 06-24-2023 Urea nitrogen [Mass/Vol] 10 mg/dL 7-18 [facility] Thin prep Papanicolaou smear with manual screeningOrdered By: Raoul Oliver on 06-24-2023 Thin prep Papanicolaou smear with manual screening 3 5-15 [facility] Basophil percentageOrdered B y: Ethan Martinez on 06-23-2023 Basophil percentage 0 SEEN /hpf 0-5 [facility] Bilirubin Test strip Ql (U)O rdered By: Ethan Martinez on 06-23-2023 Bilirubin Ql (U) Negative Negative [facility] Ketones Test strip Ql (U)Ord ered By: Ethan Martinez on 06-23-2023 Ketones Ql (U) Negative Negative [facility] Mucus LM Ql (Urine sed)Order ed By: Ethan Martinez on 06-23-2023 Mucus Ql (Urine sed) 0 SEEN /hpf [facility] Nitrite Test strip Ql (U)Ord ered By: Ethan Martinez on 06-23-2023 Nitrite Ql (U) Negative Negative [facility] No Panel InformationOrdered By: Raoul Oliver on 06-23-2023 Thyroid Stimulating Hormone (TSH) 4.71 uIU/mL 0.358-3.74 [facility] No Panel InformationOrdered By: Ethan Martinez on 06-23-2023 Troponin I High Sensitivity 6 pg/mL 3.0-78.0 [facility] Comment on above: Please Note: New [place] t Units and Gender Specific Reference Ranges. For more information see Policy Stat Procedure [place] High Sensitivity Troponin (TNIH) and attachments. Protein Test strip Ql (U)Ord ered By: Ethan Martinez on 06-23-2023 Protein Ql (U) 15 mg/dl Negative [facility] Squamous epithelial cells de tection in urine sediment by light microscopyOrdered By: Ethan Martinez on 06-23-2023 Epithelial cells.squamous LM Ql (Urine sed) 0-5 SEEN /hpf 0-5 [facility] Urine blood detectionOrdered By: Ethan Martinez on 06-23-2023 RBC Ql (U) Negative Negative [facility] RBC Ql (U) 0 SEEN /hpf 0-5 [facility] Urine clarityOrdered By: Alisa Martinez on 06-23-2023 Clarity (U) Clear Clear [facility] Urine color determinationOrd ered By: Ethan Martinez on 06-23-2023 Color (U) Yellow Yellow [facility] Urine glucose detectionOrder ed By: Ethan Martinez on 06-23-2023 Glucose Ql (U) 100 mg/dl Normal [facility] Urine leukocyte esterase det ection by dipstickOrdered By: Ethan Martinez on 06-23-2023 Leukocyte esterase Test strip Ql (U) Negative Negative [facility] Urine pHOrdered By: Ethan Romero gur on 06-23-2023 pH (U) 6.0 [pH] 5.0 - 8.0 [facility] Urine sediment bacteria coun t by microscopy (number/high power field)Ordered By: Ethan Martinez on 06-23-2023 Bacteria LM.HPF (Urine sed) [#/Area] 0 /[HPF] None Seen [facility] Urine specific gravity measu rementOrdered By: Ethan Martinez on 06-23-2023 Specific gravity (U) [Rel density] 1.015 1.002-1.030 [facility] Urobilinogen Auto test strip Ql (U)Ordered By: Ethan Martinez on 06-23-2023 Urobilinogen Ql (U) Normal mg/dl Normal [facility] CT CHEST WO IVCONon 11-25-19 23 [facility] US SCREENING FOR AAAon 11-15 [facility] LUNG VOLUMESon 09-13-2022 [facility] NITRIC OXIDE, EXHALEDon 08-18 [facility] SPIROMETRY - BASELINE AND PO ST DILATORon 09-13-2022 ERV BOX (L) 0.43 L [facility] [id number]% POST (L/S) 1.49 L/S [facility] [id number]% PRE (L/S) 2.39 L/S [facility] FEV1 PRE (L) 1.98 L [facility] FEV1/FVC POST (%) 78 % [facility] FEV1/FVC PRE (%) 84 % [facility] FEV1_POST (L) 1.84 L [facility] FRC Box (L) 1.89 L [facility] FVC POST (L) 2.35 L [facility] FVC PRE (L) 2.37 L [facility] IC BOX (L) 1.91 L [facility] PEF POST (L/S) 5.55 L/S [facility] PEF PRE (L/S) 5.58 L/S [facility] RV Box (L) 1.42 L [facility] RV/TLC Box (%) 39 % [facility] TLC Box (L) 3.68 L [facility] VC (L) BOX 2.[address] [facility] [address] CHEST WO IVCONon 11-24-19 Radiology Result ACTIONABLE Abnormal [facility] XR Chest PA and Lateralon IMPRESSION: Left upper lobe nodular opacity could be infectious. Lungs are otherwise clear. Recommend follow-up with nonemergent chest CT. Product Merchandiser: PSCB Transcribe Date/Time: Aug 13 2021 4:33P Dictated by : POORNIMA CANAS MD This examination was interpreted and the report reviewed and electronically signed by: POORNIMA CANAS MD on Aug 13 2021 4:35PM [facility] DIVISION OF RADIOLOGY * * *Final Report* * * DATE OF EXAM: Aug 13 2021 4:31PM WOX [id number] - XR CHEST 2V FRONTAL/LAT / PROCEDURE REASON: Suspected COVID-19 virus infection * * * * Physician Interpretation * * * * XR CHEST 2V FRONTAL/LAT CLINICAL HISTORY: Suspected COVID-19 virus infection COMPARISON: March 03, 2017 RESULT: No focal consolidation. Subtle nodular opacity measuring 1.3 cm along the left upper lobe. Mild cardiomegaly. No pulmonary edema. [facility] * * *Final Report* * * DATE OF EXAM: Aug 13 2021 4:31PM WOX [id number] - XR CHEST 2V FRONTAL/LAT / PROCEDURE REASON: Suspected COVID-19 virus infection * * * * Physician Interpretation * * * * XR CHEST 2V FRONTAL/LAT CLINICAL HISTORY: Suspected COVID-19 virus infection COMPARISON: March 03, 2017 RESULT: No focal consolidation. Subtle nodular opacity measuring 1.3 cm along the left upper lobe. Mild cardiomegaly. No pulmonary edema. IMPRESSION IMPRESSION: Left upper lobe nodular opacity could be infectious. Lungs are otherwise clear. Recommend follow-up with nonemergent chest CT. Product Merchandiser: JUJU Transcribe Date/Time: Aug 13 2021 4:33P Dictated by : POORNIMA CANAS MD This examination was interpreted and the report reviewed and electronically signed by: POORNIMA CANAS MD on Aug 13 2021 4:35PM EST [facility] Radiology Study observation (narrative) [facility] XR Chest PA and LateralOrder ed By: [facility] Provider on 08-13-2021 [facility] Vital Signs Date Time Vital Sign Value Performing Clinician Facility 10-20-2023 14:22-040 Body weight 91.35 kg Usman Patel MD Work Phone: [facility] 10-20-2023 14:22-040 Diastolic blood pressure 74 mm[Hg] Usman Patel MD Work Phone: [facility] 10-20-2023 14:22-0400 Heart rate 82 /min Usman Patel MD Work Phone: [facility] 10-20-2023 14:22-0400 Respiratory rate 18 /min Usman Patel MD Work Phone: [facility] 10-20-2023 14:22-0400 Systolic blood pressure 122 mm[Hg] Usman Patel MD Work Phone: [facility] 08-28-2023 10:36-0500 Body weight 91.63 kg Aiden Mccrary MD Work Phone: [facility] 08-28-2023 10:36-0500 Diastolic blood pressure 64 mm[Hg] Aiden Mccrary MD Work Phone: [facility] 08-28-2023 10:36-0500 Heart rate 71 /min Aiden Mccrary MD Work Phone: [facility] 08-28-2023 10:36-0500 Respiratory rate 16 /min Aiden Mccrary MD Work Phone: [facility] 08-28-2023 10:36-0500 SaO2% (BldA) [Mass fraction] 100 % Aiden Mccrary MD Work Phone: [facility] 08-28-2023 10:36-0500 Systolic blood pressure 151 mm[Hg] Aiden Mccrary MD Work Phone: [facility] 06-25-2023 13:23-0500 Heart rate 78 /min Dr. Usman Patel Work Phone: [facility] 06-25-2023 13:23-0500 Respiratory rate 18 /min Dr. Usman Patel Work Phone: [facility] 06-25-2023 11:36-0500 Body temperature 98 [degF] Dr. Usman Patel Work Phone: [facility] 06-25-2023 11:36-0500 Diastolic blood pressure 61 mm[Hg] Dr. Usman Patel Work Phone: [facility] 06-25-2023 11:36-0500 SaO2% (BldA) [Mass fraction] 96 % Dr. Usman Patel Work Phone: [facility] 06-25-2023 11:36-0500 Systolic blood pressure 113 mm[Hg] Dr. Usman Patel Work Phone: [facility] 06-23-2023 20:06-0500 Body height 162.[address] Usman Patel Work Phone: [facility] 06-23-2023 20:06-0500 Body mass index (BMI) [Ratio] 34.2 kg/m2 Dr. Usman Patel Work Phone: [facility] 06-23-2023 20:06-0500 Body weight 90.[address] Usman Patel Work Phone: [facility] 05-17-2023 13:59-0400 Body weight 90.27 kg Shayna Frias POWDERMAN.MONUMENT ERECTOR Work Phone: [facility] 05-17-2023 13:59-0400 Diastolic blood pressure 76 mm[Hg] Shayna Frias POWDERMAN.MONUMENT ERECTOR Work Phone: [facility] 05-17-2023 13:59-0400 Heart rate 88 /min Shayna Frias POWDERMAN.MONUMENT ERECTOR Work Phone: [facility] 05-17-2023 13:59-0400 Respiratory rate 16 /min Shayna Frias POWDERMAN.MONUMENT ERECTOR Work Phone: [facility] 05-17-2023 13:59-0400 SaO2% (BldA) [Mass fraction] 98 % Shayna Frias POWDERMAN.MONUMENT ERECTOR Work Phone: [facility] 05-17-2023 13:59-0400 Systolic blood pressure 110 mm[Hg] Shayna Frias POWDERMAN.MONUMENT ERECTOR Work Phone: [facility] 02-24-2023 19:04-0400 Body mass index (BMI) [Ratio] 34.2 kg/m2 [facility] 02-24-2023 19:04-0400 Body weight 93.3 kg [facility] 02-24-2023 13:55-0400 Body height 165.1 cm [facility] 02-24-2023 13:55-0400 Body temperature 97.1 [degF] [facility] 02-24-2023 13:55-0400 Diastolic blood pressure 80 mm[Hg] [facility] 02-24-2023 13:55-0400 Heart rate 72 /min [facility] 02-24-2023 13:55-0400 Respiratory rate 18 /min [facility] 02-24-2023 13:55-0400 SaO2% (BldA) [Mass fraction] 99 % [facility] 02-24-2023 13:55-0400 Systolic blood pressure 159 mm[Hg] [facility] 09-13-2022 13:21-0500 Body height 160 cm Pulm Wstr Work Phone: [facility] 09-13-2022 13:21-0500 Body weight 92.08 kg Pulm Wstr Work Phone: [facility] 09-13-2022 13:21-0500 Heart rate 74 /min Pulm Wstr Work Phone: [facility] 09-13-2022 13:21-0500 Respiratory rate 16 /min Pulm Wstr Work Phone: [facility] 09-13-2022 13:21-0500 SaO2% (BldA) [Mass fraction] 96 % [facility]str Work Phone: [facility] 09-08-2022 14:01-0500 Body temperature 98.01 [degF] Shayna Tannhof POWDERMAN.MONUMENT ERECTOR Work Phone: [facility] 09-08-2022 14:01-0500 Body weight 93.44 kg Shayna Tannhof POWDERMAN.MONUMENT ERECTOR Work Phone: [facility] 09-08-2022 14:01-0500 Diastolic blood pressure 74 mm[Hg] Shayna Tannhof POWDERMAN.MONUMENT ERECTOR Work Phone: [facility] 09-08-2022 14:01-0500 Heart rate 104 /min Shayna Tannhof POWDERMAN.MONUMENT ERECTOR Work Phone: [facility] 09-08-2022 14:01-0500 Respiratory rate 16 /min Shayna Tannhof POWDERMAN.MONUMENT ERECTOR Work Phone: [facility] 09-08-2022 14:01-0500 SaO2% (BldA) [Mass fraction] 96 % Shayna Tannhof POWDERMAN.MONUMENT ERECTOR Work Phone: [facility] 09-08-2022 14:01-0500 Systolic blood pressure 126 mm[Hg] Shayna Tannhof POWDERMAN.MONUMENT ERECTOR Work Phone: [facility] 08-24-2022 16:11-0500 Body temperature 98.1 [degF] Shayna Tannhof POWDERMAN.MONUMENT ERECTOR Work Phone: [facility] 08-24-2022 16:11-0500 Body weight 90.72 kg Shayna Tannhof POWDERMAN.MONUMENT ERECTOR Work Phone: [facility] 08-24-2022 16:11-0500 Diastolic blood pressure 90 mm[Hg] Shayna Tannhof POWDERMAN.MONUMENT ERECTOR Work Phone: [facility] 08-24-2022 16:11-0500 Heart rate 99 /min Shayna Tannhof POWDERMAN.MONUMENT ERECTOR Work Phone: [facility] 08-24-2022 16:11-0500 Respiratory rate 16 /min Shayna Tannhof POWDERMAN.MONUMENT ERECTOR Work Phone: [facility] 08-24-2022 16:11-0500 SaO2% (BldA) [Mass fraction] 97 % Shayna Tannhof POWDERMAN.MONUMENT ERECTOR Work Phone: [facility] 08-24-2022 16:11-0500 Systolic blood pressure 138 mm[Hg] Shayna Tannhof POWDERMAN.MONUMENT ERECTOR Work Phone: [facility] 05-17-2022 14:44-0400 Body weight 92.9 kg Usman Patel MD Work Phone: [facility] 05-17-2022 14:44-0400 Diastolic blood pressure 90 mm[Hg] Usman Patel MD Work Phone: [facility] 05-17-2022 14:44-0400 Heart rate 74 /min Usman Patel MD Work Phone: [facility] 05-17-2022 14:44-0400 Respiratory rate 16 /min Usman Patel MD Work Phone: [facility] 05-17-2022 14:44-0400 Systolic blood pressure 154 mm[Hg] Usman Patel MD Work Phone: [facility] Encounters Encounter Date Encounter Type Care Provider Facility Start: 01-07-2025 ambulatory Micaela MÉNDEZ Fa cility:[facility] Start: 12-17-2024 ambulatory Jolly MÉNDEZ Fac ility:[facility] Start: 12-17-2024 Registered Referred Jolly Macdonald NP-C [facility] Start: 11-26-2024 End: 11-26-[address] Usman Patel MD Work Phone: [facility] Work Phone: Start: 11-26-2024 End: 11-26-2024 Departed Referred Micaela Holder MD -[facility] Start: 11-26-2024 End: 11-26-2024 ambulatory Micaela MÉNDEZ Facility:[facility] Start: 11-19-2024 End: 11-19-[address] Usman Patel MD Work Phone: [facility] Work Phone: Start: 11-19-2024 End: 11-19-2024 Departed Referred Jolly Macdonald NP-C -[facility] Start: 11-19-2024 Registered Referred Jolly Macdonald NP-C -[facility] Start: 11-19-2024 End: 11-19-2024 ambulatory Jolly MÉNDEZ Facility:[facility] Start: 10-15-2024 End: 10-15-[address] Usman Patel MD Work Phone: [facility] Work Phone: Start: 10-15-2024 End: 10-15-[address] Micaela Holder MD [facility] Work Phone: Start: 10-15-2024 End: 10-15-2024 Departed Referred Jolly KOVACS -[facility] Start: 10-15-2024 Registered Referred Jolly Macdonald NP-Steven -[facility] Start: 10-15-2024 End: 10-15-2024 ambulatory Jolly Macdonald OLS Facility:[facility] Start: 10-04-2024 End: 10-04-[address] Usman Patel MD Work Phone: [facility] Work Phone: Start: 10-04-2024 End: 10-04-2024 [facility]: 10-04-[facility]24 [facility] Start: 10-04-2024 End: 10-04-2024 ambulatory Micaela MÉNDEZ Facility:[facility] Start: 09-17-2024 End: 09-17-[address] Usman Patel MD Work Phone: [facility] Work Phone: Start: 09-17-2024 End: 09-17-2024 [facility] Start: 09-17-2024 End: 09-17-2024 ambulatory Efewvinicio Holder OLS Facility:[facility] Start: 09-03-2024 ambulatory Efewfermínbe Loriee OLS Fa cility:[facility] Start: 09-03-2024 [facility] Start: 08-20-2024 ambulatory Efewongbe Oleghe OLS Fa cility:[facility] Start: 08-20-2024 [facility] Start: 07-23-2024 ambulatory Usman Wallace y:[facility] Start: 07-23-2024 [facility] Start: 07-02-2024 End: 07-02-2024 Telephone encounter Usman Patel MD Work Phone: [facility] [place] Comment on above: Forms (90 day order for [place]) Start: 06-18-2024 End: 06-18-2024 ambulatory Usman Patel Facility:[facility] Start: 05-17-2024 ambulatory Efewongbe Oleghe OLS Fa cility:[facility] Start: 05-10-2024 ambulatory Efewongbe Oleghe OLS Fa cility:[facility] Start: 05-09-2024 End: 05-10-2024 Telephone encounter Usman Patel MD Work Phone: [facility] [place] Comment on above: Forms ([place]) Start: 05-03-2024 ambulatory Efewongbe Oleghe OLS Fa cility:[facility] Start: 04-26-2024 ambulatory Efewolympiabe Oleghe OLS Fa cility:[facility] Start: 04-19-2024 ambulatory Efewongbe Oleghe OLS Fa cility:[facility] Start: 04-12-2024 ambulatory Efewolympiabe Oleghe OLS Fa cility:[facility] Start: 04-08-2024 ambulatory Usman Patel Facilit y:[facility] Start: 03-28-2024 End: 04-05-2024 ambulatory Melissa Burton Facility:[facility] Start: 03-25-2024 End: 03-25-2024 ambulatory Usman Patel Facility:[facility] Start: 03-05-2024 End: 03-05-2024 Refill Usman Patel MD Work Phone: [facility] [place] Comment on above: Med Change Request Start: 03-04-2024 End: 03-04-2024 Refill Usman Patel MD Work Phone: [facility] [place] Comment on above: Refill Request Start: 02-06-2024 Telephone encounter Usman mccarthy MD Work Phone: [facility] [place] Comment on above: Forms ([place] [facility] 90 day order) Start: 10-20-2023 End: 10-20-2023 ambulatory USMAN PATEL Facility:[facility] Start: 10-20-2023 End: 10-20-2023 Patient encounter procedure Usman Patel MD Work Phone: [facility] [place] Comment on above: Hypothyroidism, acqu ired (Primary Dx); Balance problem; Dizziness; Generalized convulsive epilepsy (HCC); COPD with chronic bronchitis (HCC); Cerebral palsy, unspecified type (HCC) Start: 10-19-2023 Telephone encounter Usman mccarthy MD Work Phone: [facility] [place] Comment on above: Forms (Orders from [place] - day) Start: 09-19-2023 End: 09-19-2023 ambulatory AIDEN MCCRARY Facility:[facility] Start: 09-05-2023 End: 09-05-2023 ambulatory AIDEN MCCRARY Facility:[facility] Start: 08-28-2023 End: 08-28-2023 ambulatory [facility] Facility:[facility] Start: 08-28-2023 End: 08-28-2023 Patient encounter procedure Aiden Mccrary MD Work Phone: Cardiology Comment on above: Syncope and collapse ; Vasovagal syncope; Palpitations Start: 08-15-2023 End: 08-15-2023 ambulatory [facility] Facility:[facility] Start: 08-08-2023 End: 08-08-2023 ambulatory USMAN PATEL Facility:[facility] Start: 07-19-2023 End: 07-19-2023 ambulatory [facility] Facility:[facility] Start: 07-19-2023 End: 07-19-2023 ambulatory [facility] Facility:[facility] Start: 07-14-2023 End: 07-15-2023 ambulatory USMAN PATEL Facility:[facility] Start: 06-27-2023 Patient Outreach Usman zuñiga MD Work Phone: [facility] [place] Comment on above: Transition Of Care Start: 06-25-2023 Non-patient / Non-visit Dr. Allison Patel Work Phone: [facility] Work Phone: Start: 06-24-2023 Non-patient / Non-visit Dr. Allison Patel Work Phone: [facility] [facility] Work Phone: Start: 06-23-2023 Non-patient / Non-visit Dr. Allison Patel Work Phone: [facility] Work Phone: Start: 06-23-2023 End: 06-25-2023 Evaluation and management of inpatient Dr. Usman Patel Work Phone: [facility] 3 Work Phone: Start: 06-23-2023 End: 06-25-[address] Usman Patel Work Phone: [facility] Work Phone: Start: 06-23-2023 Telephone encounter Usman mccarthy MD Work Phone: [facility] Comment on above: Patient Update Start: 06-01-2023 Refill Usman humphries MD Work Phone: [facility] Comment on above: Refill Request Start: 05-17-2023 End: 05-17-2023 Patient encounter procedure Shayna Altagracia QUAN Work Phone: [facility] Comment on above: Generalized convulsi ve epilepsy (HCC) (Primary Dx); Imbalance; COPD with chronic bronchitis; Hypothyroidism, acquired; Cerebral palsy, unspecified type (HCC); Prostate cancer screening; Dyslipidemia, goal LDL below 100 Start: 02-27-2023 Telephone encounter Usman mccarthy MD Work Phone: [facility] Comment on above: Patient Update (Fall ) Start: 02-24-2023 End: 02-24-2023 Emergency department patient visit [facility] Work Phone: Start: 11-24-2022 End: 11-24-2022 Subsequent hospital visit by physician [facility] (I-Stat) Work Phone: Cat Scan Comment on above: Lung nodules [R91.8] Start: 11-15-2022 End: 11-15-2022 Subsequent [facility] Work Phone: Radiology Comment on above: Screening for AAA (a bdominal aortic aneurysm) [Z13.6] Start: 09-19-2022 Telephone encounter Shayna mahoney APRN.MONUMENT ERECTOR Work Phone: [facility] [place] Comment on above: Results (PFT's) Start: 09-13-2022 End: 09-13-2022 ambulatory [facility] Work Phone: [facility] Comment on above: Spirometry Start: 09-13-2022 End: 09-13-2022 Patient encounter procedure [facility] Work Phone: [facility] Start: 09-08-2022 End: 09-08-2022 Patient encounter procedure Shayna Frias APRN.MONUMENT ERECTOR Work Phone: [facility] [place] Comment on above: Cough, unspecified t ype (Primary Dx); SOB (shortness of breath); COPD with chronic bronchitis (HCC) Start: 09-07-2022 Telephone encounter Usman mccarthy MD Work Phone: [facility] [place] Comment on above: Appointment Start: 08-25-2022 Telephone encounter Shayna mahoney APRN.MONUMENT ERECTOR Work Phone: [facility] [place] Comment on above: Results (COVID/flu.) Start: 08-24-2022 End: 08-24-2022 Patient encounter procedure Shayna Frias APRN.MONUMENT ERECTOR Work Phone: [facility] [place] Comment on above: Sinobronchitis (Prim uvaldo Dx) Start: 07-12-2022 Telephone encounter Usman mccarthy MD Work Phone: [facility] [place] Comment on above: Forms ([employer] [place]) Start: 06-10-2022 Telephone encounter Usman mccarthy MD Work Phone: [facility] Comment on above: Results Start: 05-24-2022 Telephone encounter Fritz Stilesalfredo fritz APRN.CNP Work Phone: [facility] Comment on above: Results Start: 05-17-2022 End: 05-17-2022 Patient encounter procedure Usman Patel MD Work Phone: [facility] Comment on above: Hypothyroidism, acqu ired (Primary Dx); Need for influenza vaccination; Need for COVID-19 vaccine; Generalized convulsive epilepsy (HCC); Imbalance; COPD with chronic bronchitis (HCC); Obesity, Class II, BMI 35-39.9; Elevated PSA; Cerebral palsy, unspecified type (HCC) Start: 12-08-2021 ambulatory Lora Pito chauhan RN Work Phone: [facility] [employer] [facility] Comment on above: [facility] [facility] (Enrollment Outreach) Start: 11-23-2021 End: 11-23-2021 Subsequent hospital visit by physician Ct Count Includes [facility] (I-Stat) Work Phone: Cat Scan Comment on above: Lung nodules [R91.8] Start: 11-12-2021 Telephone encounter Usman mccarthy MD Work Phone: [facility] Comment on above: Results Start: 08-13-2021 End: 08-13-2021 Subsequent hospital visit by physician Xr Count Includes [facility] [place] Work Phone: Radiology Comment on above: Suspected COVID-19 v irus infection [Z20.822] Procedures Date Procedure Procedure Detail Performing Clinician Start: 06-23-2023 MRI of brain without contrast Dr. Usman Patel Work Phone: Start: 06-23-2023 CT of head without contrast Dr. Usman Patel Work Phone: Start: 06-05-2023 Lipid 1996 panel - S arabella or Plasma Usman Patel MD Work Phone: Start: 02-24-2023 Radiography of ankle Start: 02-24-2023 X-ray of both feet Start: 11-24-2022 Ct thorax w/o contra st material Usman Patel MD Work Phone: Start: 11-15-2022 Us abdominal aorta r eal time screen study aaa Usman Patel MD Work Phone: Start: 09-13-2022 Nitric oxide gas determination Shayna Frias POWDERMAN.MONUMENT ERECTOR Work Phone: Start: 09-13-2022 Brncdilat rspse spmt ry pre&post-brncdilat admn Shayna Frias POWDERMAN.MONUMENT ERECTOR Work Phone: Start: 05-17-2022 INFLUENZA SEASONAL QUADRIVALENT HIGH DOSE AGE 65+ Usman Patel MD Work Phone: Start: 05-17-2022 PFIZER-BIONTECH COVI D-19 BIVALENT BOOSTER VACCINE, AGE 12+ YR Usman Patel MD Work Phone: Start: 11-23-2021 Ct thorax w/o contra st material Usman Patel MD Work Phone: Start: 08-13-2021 Radiologic exam ches t 2 views Brenda Oneal POWDERMAN.MONUMENT ERECTOR Work Phone: Start: 05-10-2021 Adult depression scr eening assessment Usman Patel MD Work Phone: Start: 03-03-2020 Lipid 1996 panel - S arabella or Plasma Shayna Frias POWDERMAN.MONUMENT ERECTOR Work Phone: Start: 02-01-2016 Colonoscopy Usman woodruff MD Work Phone: Plan of Treatment Date Care Activity Detail Author Start: 11-14-2032 Urine microalbumin profile [facility] Start: 06-05-2028 Lipid 1996 panel - S arabella or Plasma Lipid Screening [facility] Start: 06-05-2028 Lipid panel Lipid Screening [facility] Start: 10-19-2026 Diabetes Screening Diabetes Screenin g [facility] Start: 06-05-2026 Diabetes Screening Diabetes Screenin [facility] Start: 01-31-2026 Colonoscopy COLONOSCOPY [facility] Start: 01-31-2026 COLORECTAL CANCER SCREENING COLORECTAL CANCER SCREENING [facility] Start: 01-31-2026 Screening for malign ant neoplasm of colon [facility] Start: 03-03-2025 Lipid 1996 panel - S arabella or Plasma Lipid Screening [facility] Start: 03-03-2025 LIPID SCREEN LIPID SCREEN [facility] Start: 11-08-2024 DIABETES SCREEN DIABETES SCREEN [facility] Start: 11-08-2024 Diabetes Screening Diabetes Screenin g [facility] Start: 10-19-2024 Annual PCP Team Junior Java Developer main Disease Visit Annual PCP Team Chronic Disease Visit [facility] Start: 10-19-2024 Covid-19 Vaccine () Covid-19 Vaccine () [facility] Comment on above: Postponed from 03/17 (Declined at this time) Start: 07-08-2024 End: 07-08-2024 Patient encounter procedure 07/08/2024 3:20 PM EST Office Visit Cardiology [address] [place] [id number] Maria Guadalupe Shin MD [address], [address] [place], [place] [id number] follow up Cardiology Comment on above: follow up Start: 07-04-2024 Annual PCP Team Junior Java Developer main Disease Visit Annual PCP Team Chronic Disease Visit [facility] Start: 05-17-2024 Annual PCP Team Junior Java Developer main Disease Visit Annual PCP Team Chronic Disease Visit [facility] Start: 04-19-2024 End: 04-19-2024 Patient encounter procedure 04/19/2024 2:00 PM EDT Office Visit Family [facility] [address] [id number] Usman Patel MD [address] [place], [place] [id number] 6 month follow up Family [facility] Comment on above: 6 month follow up Start: 03-17-2024 Covid-19 Vaccine () Covid-19 Vaccine () [facility] Start: 03-17-2024 Influenza vaccination Influenza Vacc ine (#1) [facility] Start: 03-13-2024 End: 03-13-2024 Patient encounter procedure 03/13/2024 3:30 PM EDT Office Visit Neurology [address] [place] [address] Temitope Lara PA-C [address] [place] [address] 3 month follow up Neurology Comment on above: 3 month follow up Start: 11-15-2023 ANNUAL PCP TEAM ENGINEER OF SYSTEM DEVELOPMENT MAIN DISEASE VISIT ANNUAL PCP TEAM CHRONIC DISEASE VISIT [facility] Start: 09-08-2023 ANNUAL PCP TEAM ENGINEER OF SYSTEM DEVELOPMENT MAIN DISEASE VISIT ANNUAL PCP TEAM CHRONIC DISEASE VISIT [facility] Start: 08-24-2023 ANNUAL PCP TEAM ENGINEER OF SYSTEM DEVELOPMENT MAIN DISEASE VISIT ANNUAL PCP TEAM CHRONIC DISEASE VISIT [facility] Start: 07-17-2023 Advance Directive Discussion Advance Directive Discussion [facility] Start: 07-17-2023 Behavioral Health Screening Behavioral Health Screening [facility] Start: 07-17-2023 Depression Assessment Depression Ass essment [facility] Start: 06-25-2023 Patient discharge [facility] Start: 06-23-2023 End: 06-23-2023 Following clinical pathway protocol [facility] Start: 06-23-2023 Ambulation without limitation [facility] Start: 06-23-2023 Assessment of risk o f venous thromboembolism [facility] Start: 06-23-2023 Insertion of cathete r into peripheral vein [facility] Start: 06-23-2023 Providing care accor ding to standard [facility] Start: 06-23-2023 Referral to occupati onal therapist [facility] Start: 06-23-2023 Referral to service [facility] Start: 06-23-2023 [facility] Start: 06-23-2023 Admission procedure [facility] Start: 06-23-2023 Inhalation therapy procedure [facility] Start: 05-17-2023 ANNUAL PCP TEAM ENGINEER OF SYSTEM DEVELOPMENT MAIN DISEASE VISIT ANNUAL PCP TEAM CHRONIC DISEASE VISIT [facility] Start: 05-17-2023 End: 08-16-2023 carBAMazepine [Mass/volume] in Serum or Plasma CARBAMAZEPI/TEGRETOL Lab Routine Generalized convulsive epilepsy (HCC) Expected: 05/17/2023, Expires: 08/16/2023 [facility] Work Phone: Comment on above: Expected: 05/17/2023 , Expires: 08/16/2023 Start: 05-17-2023 End: 08-16-2023 CBC W Auto Differential panel - Blood CBC + DIFF Lab Routine Generalized convulsive epilepsy (HCC) Expected: 05/17/2023, Expires: 08/16/2023 [facility] Work Phone: Comment on above: Expected: 05/17/2023 , Expires: 08/16/2023 Start: 05-17-2023 End: 08-16-2023 Comprehensive metabolic 2000 panel - Serum or Plasma COMP METABOLIC PANEL Lab Routine Generalized convulsive epilepsy (HCC) Expected: 05/17/2023, Expires: 08/16/2023 [facility] Work Phone: Comment on above: Expected: 05/17/2023 , Expires: 08/16/2023 Start: 05-17-2023 End: 08-16-2023 levETIRAcetam [Mass/volume] in Serum or Plasma LEVETIRACETAM Lab Routine Generalized convulsive epilepsy (HCC) Expected: 05/17/2023, Expires: 08/16/2023 [facility] Work Phone: Comment on above: Expected: 05/17/2023 , Expires: 08/16/2023 Start: 05-17-2023 End: 08-16-2023 Lipid 1996 panel - Serum or Plasma LIPID PANEL BASIC Lab Routine Dyslipidemia, goal LDL below 100 Expected: 05/17/2023, Expires: 08/16/2023 [facility] Work Phone: Comment on above: Expected: 05/17/2023 , Expires: 08/16/2023 Start: 05-17-2023 End: 08-16-2023 PSA/PROSTSPECAG SCRN PSA/PROSTSPECAG SCRN Lab Routine Prostate cancer screening Expected: 05/17/2023, Expires: 08/16/2023 [facility] Work Phone: Comment on above: Expected: 05/17/2023 , Expires: 08/16/2023 Start: 05-17-2023 End: 08-16-2023 Thyrotropin [Units/volume] in Serum or Plasma TSH BLD Lab Routine Hypothyroidism, acquired Expected: 05/17/2023, Expires: 08/16/2023 [facility] Work Phone: Comment on above: Expected: 05/17/2023 , Expires: 08/16/2023 Start: 03-17-2023 Covid-19 Vaccine () Covid-19 Vaccine () [facility] Start: 03-17-2023 Influenza vaccination [facility] Start: 11-23-2022 Influenza vaccination LUNG CANCER SC REENING [facility] Start: 11-14-2022 End: 01-14-2023 carBAMazepine [Mass/volume] in Serum or Plasma CARBAMAZEPI/TEGRETOL Lab Routine Generalized convulsive epilepsy (HCC) Expected: 11/14/2022 (Approximate), Expires: 01/14/2023 [facility] Work Phone: Comment on above: Expected: 11/14/2022 (Approximate), Expires: 01/14/2023 Start: 11-14-2022 End: 01-14-2023 Comprehensive metabolic 2000 panel - Serum or Plasma COMP METABOLIC PANEL Lab Routine Obesity, Class II, BMI 35-39.9 Expected: 11/14/2022 (Approximate), Expires: 01/14/2023 [facility] Work Phone: Comment on above: Expected: 11/14/2022 (Approximate), Expires: 01/14/2023 Start: 11-14-2022 End: 01-14-2023 levETIRAcetam [Mass/volume] in Serum or Plasma LEVETIRACETAM Lab Routine Generalized convulsive epilepsy (HCC) Expected: 11/14/2022 (Approximate), Expires: 01/14/2023 [facility] Work Phone: Comment on above: Expected: 11/14/2022 (Approximate), Expires: 01/14/2023 Start: 11-14-2022 End: 01-14-2023 Lipid 1996 panel - Serum or Plasma LIPID PANEL BASIC Lab Routine Obesity, Class II, BMI 35-39.9 Expected: 11/14/2022 (Approximate), Expires: 01/14/2023 [facility] Work Phone: Comment on above: Expected: 11/14/2022 (Approximate), Expires: 01/14/2023 Start: 11-14-2022 End: 01-14-2023 Thyrotropin [Units/volume] in Serum or Plasma TSH BLD Lab Routine Hypothyroidism, acquired Expected: 11/14/2022 (Approximate), Expires: 01/14/2023 [facility] Work Phone: Comment on above: Expected: 11/14/2022 (Approximate), Expires: 01/14/2023 Start: 11-08-2022 ANNUAL PCP TEAM ENGINEER OF SYSTEM DEVELOPMENT MAIN DISEASE VISIT ANNUAL PCP TEAM CHRONIC DISEASE VISIT [facility] Start: 09-14-2022 COVID-19 VACCINE (5 - Moderna series) COVID-19 VACCINE (5 - Moderna series) [facility] Start: 09-08-2022 End: 10-08-2023 LUNG VOLUMES LUNG VOLUMES PFT Routine SOB (shortness of breath) COPD with chronic bronchitis (HCC) Expected: 09/08/2022, Expires: 10/08/2023 [facility] Work Phone: Comment on above: Expected: 09/08/2022 , Expires: 10/08/2023 Start: 07-24-2022 End: 09-23-2022 Thyrotropin [Units/volume] in Serum or Plasma TSH BLD Lab Routine Hypothyroidism, acquired Expected: 07/24/2022 (Approximate), Expires: 09/23/2022 [facility] Work Phone: Comment on above: Expected: 07/24/2022 (Approximate), Expires: 09/23/2022 Start: 07-17-2022 ADVANCE DIRECTIVE DISCUSSION ADVANCE DIRECTIVE DISCUSSION [facility] Start: 07-17-2022 DEPRESSION ASSESSMENT DEPRESSION ASS ESSMENT [facility] Start: 05-17-2022 End: 07-17-2022 Prostate specific Ag [Mass/volume] in Serum or Plasma [facility] Work Phone: Comment on above: Expected: 05/17/2022 , Expires: 07/17/2022 Start: 05-17-2022 End: 07-17-2022 Thyrotropin [Units/volume] in Serum or Plasma [facility] Work Phone: Comment on above: Expected: 05/17/2022 , Expires: 07/17/2022 Start: 05-10-2022 Adult depression scr eening assessment DEPRESSION SCREENING [facility] Start: 11-30-2021 COVID-19 VACCINE (4 - Booster for Moderna series) COVID-19 VACCINE (4 - Booster for Moderna series) [facility] Start: 07-17-2021 DEPRESSION ASSESSMENT DEPRESSION ASS ESSMENT [facility] Start: 2010 RSV Vaccine (1 - 1-d ose 60+ series) RSV Vaccine (1 - 1-dose 60+ series) [facility] Start: 2010 RSV Vaccine (1 - Ris k 60-74 years 1-dose series) RSV Vaccine (1 - Risk 60-74 years 1-dose series) [facility] Start: 2005 Influenza vaccination LUNG CANCER SC REENING [facility] Start: 2000 SHINGRIX VACCINE (1 of 2) DUMONT GRIX VACCINE (1 of 2) [facility] Start: 1995 COLOGUARD (FIT-DNA) COLOGUARD (FIT-D NA) [facility] Start: [address] COLONOGRAPHY [facility] Start: 1995 FECAL OCCULT BLOOD FECAL OCCULT BLOO D [facility] Start: 1995 Screening for malign ant neoplasm of colon [facility] Start: 1995 SIGMOIDOSCOPY SIGMOIDOSCOPY [facility] Start: 1980 Zoledronic acid therapy ALPHA- 1 ANTITRYPSIN DEFICIENCY SCREENING [facility] Start: 1969 Urine microalbumin profile DTAP,TDAP ,TD (1 - Tdap) [facility] Start: 1968 Anxiety Screening Anxiety Screening [facility] Start: 1968 Depression Screening Depression Scre ening [facility] Start: 1956 PNEUMOCOCCAL: 65+ (1 - PCV) PNEUMOCOCCAL: 65+ (1 - PCV) [facility] Start: 1950 ABDOMINAL AORTIC ANE URYSM SCREENING ABDOMINAL AORTIC ANEURYSM SCREENING [facility] End: 08-28-2024 Echocardiography ECHO Cardiology Routine Syncope and collapse Palpitations 1 Occurrences starting 08/28/2023 until 08/28/2024 [facility] Work Phone: Comment on above: 1 Occurrences starti ng 08/28/2023 until 08/28/2024 Influenza virus A an d B RNA and SARS-CoV-2 (COVID-19) N gene panel - Respiratory specimen by JOY with probe detection COVID WITH FLUA+B, ROUTINE Microbiology Routine Sinobronchitis Ordered: 08/24/2022 [facility] Work Phone: Comment on above: Ordered: 08/24/2022 End: 10-08-2023 NITRIC OXIDE, EXHALED NITRIC OXIDE, EXHALED PFT Routine SOB (shortness of breath) COPD with chronic bronchitis (HCC) 1 Occurrences starting 09/08/2022 until 10/08/2023 [facility] Work Phone: Comment on above: 1 Occurrences starti ng 09/08/2022 until 10/08/2023 OUTSIDE VENDOR CARDI AC OUTPATIENT EXTENDED RHYTHM RECORDING (WITHOUT TELEMETRY) OUTSIDE VENDOR CARDIAC OUTPATIENT EXTENDED RHYTHM RECORDING (WITHOUT TELEMETRY) Holter Routine Syncope and collapse Palpitations Ordered: 08/28/2023 [facility] Work Phone: Comment on above: Ordered: 08/28/2023 Patient Education ED Fracture, Foot Woost er [facility] Work Phone: Patient referral [facility] Work Phone: End: 10-08-2023 SPIROMETRY - BASELINE AND POST DILATOR SPIROMETRY - BASELINE AND POST DILATOR PFT Routine SOB (shortness of breath) COPD with chronic bronchitis (HCC) 1 Occurrences starting 09/08/2022 until 10/08/2023 [facility] Work Phone: Comment on above: 1 Occurrences starti ng 09/08/2022 until 10/08/2023 End: 08-28-2024 US Carotid arteries - bilateral US CAROTID ARTERIES [facility] V[facility] Lab Routine Syncope and collapse 1 Occurrences starting 08/28/2023 until 08/28/2024 [facility] Work Phone: Comment on above: 1 Occurrences starti ng 08/28/2023 until 08/28/2024 [facility] Immunizations Immunization Date Immunization Notes Care Provider Sarah diaz 06-24-2023 Influenza High-Dose Quadrivalent Dr. Usman Patel Work Phone: [facility] 06-24-2023 influenza virus vacc ine, unspecified formulation Usman Patel MD Work Phone: [facility] 11-14-2022 tetanus toxoid, redu silvia diphtheria toxoid, and acellular pertussis vaccine, adsorbed Usman Patel MD Work Phone: [facility] 05-17-2022 COVID-19 booster vaccine, age 12+ yr, bivalent (PFIZER-BIONTECH) Usman Patel MD Work Phone: [facility] 05-17-2022 influenza, high-dose , quadrivalent vaccine (FLUZONE HIGH DOSE QUADRIVALENT) Usman Patel MD Work Phone: [facility] 05-17-2022 influenza virus vacc ine, unspecified formulation Shayna Frias APRN.CNP Work Phone: [facility] 08-02-2021 COVID-19 vaccine, ag e 12+ yr (PFIZER-BIONTECH - BEYER TOP) Usman Patel MD Work Phone: [facility] Work Phone: 05-10-2021 influenza, high-dose , quadrivalent vaccine (FLUZONE HIGH DOSE QUADRIVALENT) Usman Patel MD Work Phone: [facility] 09-11-2020 COVID-19 vaccine, fu ll dose (MODERNA) Usman Patel MD Work Phone: [facility] 08-14-2020 COVID-19 vaccine, fu ll dose (MODERNA) Usman Patel MD Work Phone: [facility] 05-07-2020 influenza, high dose seasonal, preservative-free Usman Patel MD Work Phone: [facility] 05-07-2020 influenza, high-dose , quadrivalent vaccine (FLUZONE HIGH DOSE QUADRIVALENT) Usman Patel MD Work Phone: [facility] 05-21-2019 influenza, high dose seasonal, preservative-free Usman Patel MD Work Phone: [facility] 07-26-2018 influenza, high dose seasonal, preservative-free Usman Patel MD Work Phone: [facility] 05-12-2017 influenza, high dose seasonal, preservative-free Usman Patel MD Work Phone: [facility] 04-16-2017 influenza, high dose seasonal, preservative-free Usman Patel MD Work Phone: [facility] 03-17-2017 Influenza virus vaccine [facility] 03-17-2017 influenza, seasonal, injectable, preservative free Usman Patel MD Work Phone: [facility] 12-02-2016 pneumococcal polysaccharide vaccine, 23 valent Usman Patel MD Work Phone: [facility] 05-23-2016 influenza, high dose seasonal, preservative-free Usmna Patel MD Work Phone: [facility] 11-30-2015 pneumococcal conjuga te vaccine, 13 valent Usman Patel MD Work Phone: [facility] 07-27-2013 pneumococcal polysaccharide vaccine, 23 valent Usman Patel MD Work Phone: [facility] 07-27-2013 pneumococcal vaccine , unspecified formulation [facility] 05-27-2013 influenza virus vacc ine, unspecified formulation Usman Patel MD Work Phone: [facility] 05-17-2013 Influenza virus vaccine [facility] 07-27-2009 novel influenza-H1N1 -09, preservative-free, injectable Usman Patel MD Work Phone: [facility] 05-08-2009 influenza virus vacc ine, whole virus Usman Patel MD Work Phone: [facility] 05-22-2008 influenza virus vacc ine, unspecified formulation Usman Patel MD Work Phone: [facility] 05-15-2007 influenza virus vacc ine, whole virus Usman Patel MD Work Phone: [facility] Payers Date Payer Category Payer Unknown [id number] 2024 Unknown [id number] 2023 Self-pay [id number] 2023 Unknown [id number] 2022 Medicare [id number] 2020 Medicare HUMANA MEDICARE HUMANA GOLD PLUS [id number] 2020-[facility] [phone] [facility] [id number] [place] [id number] [facility] [id number] 2020 Medicare [id number] 2001 Medicare MEDICARE PART A B [id number] Unknown [id number] Unknown [id number] Unknown [id number] Unknown [id number] Unknown [id number] Unknown [id number] Unknown [id number] Unknown [id number] Unknown [id number] Unknown [id number] Unknown [id number] Unknown [id number] Unknown [id number] Unknown [id number] Unknown [id number] Unknown [id number] Unknown [id number] Unknown [id number] Unknown [id number] Unknown [id number] Unknown [id number] Unknown [id number] Unknown [id number] Social History Date Type Detail Facility Start: 05-17-2022 End: 03-28-2024 Tobacco smoking status NHIS Ex-smoker [facility] Work Phone: Start: 1968 End: 05-09-2007 History of tobacco use Current smoker [facility] Work Phone: Start: 11-08-2021 End: 10-20-2023 Alcohol intake Current drinker of alcohol (finding) [facility] Start: 11-01-2016 History SDOH Alcohol Comment Very occasionally. [facility] Start: 11-01-2016 End: 05-17-2022 Tobacco Comment Father smoked in childhood home. Prior roomate smoked. [facility] Start: 1950 Sex Assigned At Not on file [facility] Start: 07-14-2021 End: 05-17-2022 Exposure to SARS-CoV-2 (event) Not sure [facility] Start: 1968 End: 05-09-2007 History of tobacco use Cigarette Smoker [facility] Start: 05-17-2022 End: 05-17-2023 Cigarettes smoked current (pack per day) - Reported 1.5 [facility] Work Phone: Start: 11-01-2016 End: 05-17-2022 Tobacco use and exposure Smokeless tobacco non-user [facility] Start: 02-24-2023 End: 06-23-2023 Tobacco smoking status NHIS Unknown if ever smoked [facility] Start: 08-30-2017 None [facility] Start: 02-24-2023 Alone [facility] Start: 02-24-2023 Non-smoker [facility] Start: 1950 Sex Assigned At Male [facility] Start: 11-14-2022 End: 05-17-2023 Tobacco use panel [facility] Work Phone: Adult Depression Screening Assessment 0 [facility] Work Phone: Start: 10-17-2024 End: 10-23-2024 Sex Male (finding) [facility] Goals Date Patient Goal Desired Activity /State Functional Status Date Assessment Result Facility 06-25-2023 Functional status Ambulates Nirmal Barber [facility] Work Phone: Mental Status Date Assessment Result Facility 06-25-2023 Cognitive function Voice/Name Nirmal Harris [facility] Work Phone: Clinical Notes 06-27-2014 to 07-02-2024 Telephone Encounter - Julieta Mckay MA - 07/02/2024 11:52 AM ESTTelephone Encounter - Julieta Mckay MA - 07/02/2024 11:52 AM ESTTelephone Encounter - Norma Rogers MA - 07/02/2024 9:24 AM EST Note Date & Type Note Facility 07-02-2024 Telephone encounter Note Form signed and faxed back to number below. Julieta Mckay MA [facility] 07-02-2024 Miscellaneous Notes Form signed and faxed back to number below. Julieta Mckay MA Type of letter/form/fax request - order from [facility] Form received from fax on 1 floor and placed on MD desk (Dr. Patel) for completion. Completed form needs to be faxed to [employer] at [phone]. Route to [place] when form completed for processing documented in this encounter [facility] 07-02-2024 Telephone encounter Note Type of letter/form/fax request - order from [facility] Form received from fax on 1 floor and placed on MD desk (Dr. Patel) for completion. Completed form needs to be faxed to [employer] at [phone]. Route to [place] when form completed for processing [facility] 05-10-2024 Telephone encounter Note Faxed. Norma Rogers MA [facility] 05-10-2024 Miscellaneous Notes Faxed. Norma Rogers MA Type of form: 90 day order for Adult Day Care Services through [place] Form received via fax When form is completed, Fax form to [phone] Form has been forwarded to Physician Desk: Dr. Jorge Mckay MA documented in this encounter [facility] 05-09-2024 Telephone encounter Note Type of form: 90 day order for Adult Day Care Services through [place] Form received via fax When form is completed, Fax form to [phone] Form has been forwarded to Physician Desk: Dr. Jorge Mckay MA [facility] 04-05-2024 Note [facility] Medical Records Department [address] [place] [address] Discharge Summary 04/05/24 1442 MR#: [id number] Acct: [id number] Name: J LUIS MADERA Rep #: [id number] : 1950 73 From: Kike Malave MD PCP: Dr. Usman Patel MD Status:ADM EDUARDO Location: [facility] [id number] Providers Date of Admission: 03/28/24 Date of Discharge: 04/05/24 Primary Care Physician: Dr. Usman Patel MD Reason For Visit: WEAKNESS, INABILITY TO AMBULATE Diagnosis Discharge Diagnosis (1) Generalized weakness: Status: Inactive Code(s): R53.1 - Weakness Plan 73-year-old gentleman was admitted with generalized weakness, unable to ambulate from out of bed. He is only gets around with 4-prong walker. Denies other acute issues related to chest, GI, or chest pain or URI symptoms or fever or chills. # Generalized weakness: Patient is being admitted on MedSurg.. Vitamin D 25-hydroxy level. B12 low normal. Serum magnesium phosphorus in normal limits. Iron studies in normal limit. Ferritin normal -PT/OT -Case management/social work input appreciated 03/30: Patient had good large bowel movement yesterday and today. One-time emesis, clinically not significant. 03/31: No acute issues. Pending pre-CERT and discharge possible tomorrow a.m. TSH low. Free T4 normal, 1.12. 04/01: Discussed with the nursing staff. Patient has a history of MRDD with seizure. MRDD board will not clear it therefore it will take time for patient gets discharged to assisted subacute rehab living center. 04/02: No acute change. Still pending the clearance from the MRDD board as mentioned above. 04/03: No acute change. Still pending transfer to SNF, pre-CERT pending. Morning labs ordered. 04/04 no acute change. Same, waiting for pre-CERT. 04/08: Finally patient got the pre-CERT and is going to longterm. Discharge meds reconciliation done. No acute issues. Patient voiding bowel. # Chronic seizure disorder -Denies any recent seizure activity -Continue home Keppra and Tegretol # COPD -No current respiratory complaints or problems noted -Continue inhalers No exacerbation #Hypothyroidism -Continue Synthroid TSH low 0.169. Free T4 1.12 normal. # History of cerebral palsy -Noted -PT/OT -Supportive care #DVT ppx: Lovenox subcu Discharge medication reconciliation done. Discharge follow-up instructions completed. Discharge process discussed with the patient and all questions were answered to patient's satisfaction. Follow with PCP in 1 to 2 weeks Total time spent, exact 35 minutes on discharge meds reconciliation, examination, coordination of care with nurses and ancillary staff, review of imaging and blood test and discussion with the patient on follow-up instructions. Medications at Discharge Home Medications carbamazepine 200 mg tablet 200 mg PO TID seizures 08/29/17 levetiracetam 500 mg tablet 500 mg PO BID seizures 08/29/17 fluticasone 500 mcg-salmeterol 50 mcg/dose blistr powdr for inhalation 1 inh inhalation DAILY 06/23/23 albuterol sulfate 90 mcg/actuation aerosol inhaler 2 puff inhalation Q4H PRN wheezing/shortness of breath 03/28/24 levothyroxine 100 mcg tablet (Levoxyl) 100 mcg PO DAILY 03/28/24 cyanocobalamin (vitamin B-12) 1,000 mcg tablet 1,000 mcg PO BREAKFAST 30 days #0 tabs 04/05/24 ergocalciferol (vitamin D2) 1,250 mcg (50,000 unit) capsule (Vitamin D2) 1,250 mcg PO Q7D 1 month #5 caps 04/05/24 sennosides 8.6 mg-docusate sodium 50 mg tablet (Stimulant Laxative Plus) 2 tab PO BID #0 tabs 04/05/24 Physical Exam Narrative Seen and examined. Patient on baseline. No acute issues History of cerebral palsy. He can do basic functions of life including eating and going to bathroom/toilet but seems higher mental function is compromised. Physical exam General: Awake. Oriented x 3. No acute complaint. HEENT: Atraumatic, PERRLA, EOMI, Normocephalic Oral: Oral mucosa moist. No Gingival or Mucosal Lesions/ Ulcerations Neck: Supple, No JVD, Negative Carotid Bruits Chest wall/Lungs: Air entry diminished in bilateral lung bases. No crepitation/rhonchi Cardiovascular: Regular rate, Regular Rhythm, Normal S1, Normal S2, No M/G/R Abdomen: Bowel Sounds Present, Soft, Non Tender, Non-Distended : No dysuria. No renal angle tenderness. No suprapubic tenderness. Extremities: Mild venous edema, Capillary Refill Less than 3 Seconds Skin: No rashes, No breakdown Musculoskeletal: Chronic surgical scar of her right hand with muscle atrophy and contracture of wrist joint and fingers. No Tenderness to Palpation of Joints or Extremities. ROM restricted. Neurological: Cranial nerves II-XII grossly intact, DTR 2+/4. No acute focal neurological deficit. Psych/Mental Status: Flat affect Weight / BMI Weight Weight: 191 lb 4.8 oz Body Mass Index (BMI) 32.8 ABG / Lab / Microbiology Data 09 (more content not included)... [facility] 03-05-2024 Telephone encounter Note OK to refill as ordered Usman Patel MD [facility] 03-05-2024 Miscellaneous Notes OK to refill as ordered Usman Patel MD Images from the original note were not included. See prescription sig note from Pharmacy regarding medication use. documented in this encounter [facility] 03-05-2024 Telephone encounter Note Images from the original note were not included. See prescription sig note from Pharmacy regarding medication use. [facility] 03-04-2024 Telephone encounter Note The following approved medication requests have been transmitted electronically. Requested Prescriptions Signed Prescriptions Disp Refills carBAMazepine (TEGRETOL) 200 mg tablet 270 tablet 3 Sig: one tablet every AM, and 2 every evening Authorizing Provider: USMAN PATEL levothyroxine (LEVOXYL) 100 mcg tablet 90 tablet 3 Sig: Take 1 tablet by mouth once daily. Take on empty stomach. For Thyroid Authorizing Provider: USMAN PATEL fluticasone-salmeterol (ADVAIR DISKUS) 500-50 mcg/dose dsdv 3 Each 3 Sig: Inhale 1 Puff as instructed two times a day. Authorizing Provider: USMAN PATEL levETIRAcetam (KEPPRA) 500 mg tablet 180 tablet 3 Sig: Take 1 tablet by mouth two times a day. Authorizing Provider: USMAN PATEL MA [facility] 03-04-2024 Miscellaneous Notes The following approved medication requests have been transmitted electronically. Requested Prescriptions Signed Prescriptions Disp Refills carBAMazepine (TEGRETOL) 200 mg tablet 270 tablet 3 Sig: one tablet every AM, and 2 every evening Authorizing Provider: USMAN PATEL levothyroxine (LEVOXYL) 100 mcg tablet 90 tablet 3 Sig: Take 1 tablet by mouth once daily. Take on empty stomach. For Thyroid Authorizing Provider: USMAN PATEL fluticasone-salmeterol (ADVAIR DISKUS) 500-50 mcg/dose dsdv 3 Each 3 Sig: Inhale 1 Puff as instructed two times a day. Authorizing Provider: USMAN PATEL levETIRAcetam (KEPPRA) 500 mg tablet 180 tablet 3 Sig: Take 1 tablet by mouth two times a day. Authorizing Provider: USMAN PATEL MA OK to refill as ordered Usman Patel MD Prescription Refill Information The patient has been identified by name and date of : Yes Caregiver verified no other encounters exist for this prescription request: Yes Caregiver confirmed with patient/requestor that no other refills are due, in the near future, with this provider at this time: Yes The last office visit in the department: 10/20/23 Does the patient have a future office visit with this provider/department: Yes Requested Prescriptions Pending Prescriptions Disp Refills carBAMazepine (TEGRETOL) 200 mg tablet 270 tablet 3 Sig: one tablet every AM, and 2 every evening levothyroxine (LEVOXYL) 100 mcg tablet 90 tablet 1 Sig: Take 1 tablet by mouth once daily. Take on empty stomach. For Thyroid fluticasone-salmeterol (ADVAIR DISKUS) 500-50 mcg/dose dsdv 3 Each 3 Sig: Inhale 1 Puff as instructed two times a day. levETIRAcetam (KEPPRA) 500 mg tablet 180 tablet 3 Sig: Take 1 tablet by mouth two times a day. Amara Farr [facility] March 04, 2024 2:19 PM documented in this encounter [facility] 03-04-2024 Telephone encounter Note OK to refill as ordered Usman Patel MD [facility] 03-04-2024 Telephone encounter Note Prescription Refill Information The patient has been identified by name and date of : Yes Caregiver verified no other encounters exist for this prescription request: Yes Caregiver confirmed with patient/requestor that no other refills are due, in the near future, with this provider at this time: Yes The last office visit in the department: 10/20/23 Does the patient have a future office visit with this provider/department: Yes Requested Prescriptions Pending Prescriptions Disp Refills carBAMazepine (TEGRETOL) 200 mg tablet 270 tablet 3 Sig: one tablet every AM, and 2 every evening levothyroxine (LEVOXYL) 100 mcg tablet 90 tablet 1 Sig: Take 1 tablet by mouth once daily. Take on empty stomach. For Thyroid fluticasone-salmeterol (ADVAIR DISKUS) 500-50 mcg/dose dsdv 3 Each 3 Sig: Inhale 1 Puff as instructed two times a day. levETIRAcetam (KEPPRA) 500 mg tablet 180 tablet 3 Sig: Take 1 tablet by mouth two times a day. Amara Farr [facility] March 04, 2024 2:19 PM [facility] 02-06-2024 Telephone encounter Note Form faxed. Norma Rogers MA [facility] 02-06-2024 Miscellaneous Notes Form faxed. Norma Rogers MA Type of letter/form/fax request - day order for adult daycare Form received from fax on 1 floor and placed on MD desk (Dr. Patel) for completion. Completed form needs to be faxed to [facility] at [phone].. Route to [place] when form completed for processing documented in this encounter [facility] 02-06-2024 Telephone encounter Note Type of letter/form/fax request - 90 day order for adult daycare Form received from fax on 1 floor and placed on MD desk (Dr. Patel) for completion. Completed form needs to be faxed to [facility] at [phone].. Route to [place] when form completed for processing [facility] 10-20-2023 History of Presen t illness Narrative Chief Complaint Patient presents with: F/U 3 Month HPI J Luis Madera is a 73 year old male who presents here today for a 3 month follow up. Pt here today for a 3 month follow up. Last seen in office after he was discharged from the Hospital. Balance - Was referred to PT due to ongoing issues with his balance and feeling unsteady on his feet. Did complete two sessions per Epic, but pt states he was just extended for 4 more visits. Uses a cane when ambulating. Neuro - Was referred to Neurology due to ongoing issues of dizziness and hx. Pt hx of cerebral palsy, generalized convulsive epilepsy/seizures, chronic right spastic hemiparesis/weakness and imbalance. Pt has labs and imaging ordered at with Neuro in July. MRI Brain, Consult to Neuro and Cardiology was done as well. Pt was advised to f/u in 3 months. Pt currently taking Tegretol 200 mg 1 tab in the am and 2 in the pm and Keppra 500 mg 1 tab po bid. Cardio - Was seen by Dr. Mccrary on 08/28/23 for dizziness and syncope and collapse. At visit and with pt's symptoms an Echo, US Carotid arteries b/l and Zio were ordered. Pt to f/u in 3 months. Thyroid - Pt on current regimen of Levothyroxine 100 mcg once daily. Reports he feels okay on current dosage. Denies any missed dosages feels stable on this dosage. Breathing stable. HM - Currently checking into Adv Dir/Living Will at this time. Declines Covid vaccine at this time. Past medical history, appointments, medications, allergies reviewed. Previous Medical History PAST MEDICAL HISTORY Diagnosis Date ASA CLASS III 05/10/2002 Benign neoplasm of colon Cerebral palsy (HCC) 06/27/2014 COPD with chronic bronchitis 12/02/2016 Debility Diarrhea Hypoxia 2018 Infantile cerebral palsy, unspecified Other convulsions Partial small bowel obstruction (HCC) 06/27/2014 Peroneal DVT (deep venous thrombosis) (HCC) 09/05/2013 Right spastic hemiparesis (HCC) 06/27/2014 Screening for malignant neoplasm of colon 02/01/2016 Seasonal allergic rhinitis Spring through . Seizures (HCC) Small bowel obstruction (HCC) Suspected chronic obstructive pulmonary disease based on initial evaluation (HCC) 2018 Previous Surgical History PAST SURGICAL HISTORY Procedure Laterality Date COLONOSCOPY FLX DX W/COLLJ SPEC WHEN PFRMD 02/01/2016 Repeat 01/2026 COLSC FLX W/RMVL OF TUMOR POLYP LESION SNARE TQ 02/05/10 COLSC FLX W/RMVL OF TUMOR POLYP LESION SNARE TQ 04/02/12 CRANIECTOMY/CRANIOTOMY EXPL SUPRATENTORIAL 1980 Craniotomy LAPAROSCOPY COLECTOMY PARTIAL W/ANASTOMOSIS 03-17-10 PAST SURGICAL HISTORY OF Mid-60's Rt. hand & Rt foot surgery to correct defect Family History FAMILY HISTORY Problem Relation Age of Onset Hypertension Father Breast Cancer Mother Allergies Mother Hay fever. None Sister Asthma Paternal Grandmother Patient Allergies ALLERGIES Allergen Reactions Seasonal Allergies Other: See Comments Current Medications Current Outpatient Medications on File Prior to Visit Medication Sig levothyroxine (LEVOXYL) 100 mcg tablet Take 1 tablet by mouth once daily. Take on empty stomach. For Thyroid carBAMazepine (TEGRETOL) 200 mg tablet one tablet every AM, and 2 every evening fluticasone-salmeterol (ADVAIR DISKUS) 500-50 mcg/dose dsdv Inhale 1 Puff as instructed two times a day. levETIRAcetam (KEPPRA) 500 mg tablet Take 1 tablet by mouth two times a day. No current facility-administered medications on file prior to visit. Social History Social History Tobacco Use Smoking status: Former Packs/day: 1.50 Years: 40.00 Additional pack years: 0.00 Total pack years: 60.00 Types: Cigarettes Start date: 1968 Quit date: 05/09/2007 Years since quittin.4 Smokeless tobacco: Never Tobacco comments: Father smoked in childhood home. Prior roomate smoked. Substance Use Topics Alcohol use: Yes Comment: Very occasionally. Drug use: No EXAM: BP 122/74 (BP Site: Left Arm, BP Position: Sitting, BP Cuff Size: Large Adult) Pulse 82 Resp 18 Wt 91.4 kg (201 lb 6.4 oz) BMI 35.68 kg/m General Appearance: Well appearing, alert, in no acute distress, well-hydrated, well nourished. and cerebral palsy. Lungs: Lungs clear to auscultation. No wheezing, rhonchi, rales.. Heart: RRR without murmur, gallop, or rubs. No ectopy. Health Maintenance List Shingrix Vaccine(1 of 2) Never done RSV Vaccine(1 - 1-dose 60+ series) Never done Covid-19 Vaccine( - 2022- season) due on 03/17/2023 Advance Directive Discussion due on 07/17/2023 Behavioral Health Screening Never done Annual PCP Team Chronic Disease Visit due on 07/04/2024 Colorectal Cancer Screening due on 01/31/2026 Diabetes Screening due on 06/05/2026 Lipid Screening due on 06/05/2028 DTaP,Tdap,Td Vaccine(2 - Td or Tdap) due on 11/14/2032 Spirometry Completed Abdominal Aortic Aneurysm Screening Completed Influenza Vaccine Completed Hepatitis C Screening Completed Pneumococcal Vaccine: 65+ Completed Alpha-1 Antitrypsin Deficiency Screening Discontinued Data reviewed None ASSESSMENT/PLAN: 1. Hypothyroidism, acquired - ICD9: 244.9, ICD10: E03.9 (primary diagnosis) - Instructed patient on importance of taking on an empty stomach either first thing in the morning or at bedtime. - check TSH today - continue current dose of Synthroid 0.100 mg; pending lab results 2. Balance problem - ICD9: 781.99, ICD10: R26.89 Follow iwth Neuro PT 3. Dizziness - ICD9: 780.4, ICD10: R42 Follow iw Neuro PT 4. Generalized convulsive epilepsy (HCC) - ICD9: 345.10, ICD10: G40.309 Continue current medications. 5. COPD with chronic bronchitis (HCC) - ICD9: 491.20, ICD10: J44.89 Stable 6. Cerebral palsy, unspecified type (HCC) - ICD9: 343.9, ICD10: G80.9 Stable Follow up in 6 months; notify of lab results today Medical Decision Making: Problems: Moderate: 2+ stable chronic illnesses Risk: Moderate: Drug management Medical Decision Making Level: 4 - Moderate Usman Patel MD documented in this encounter [facility] 10-20-2023 Note HNO ID: [id number] Author: USMAN PATEL MD Service: ? Author Type: Physician Type: Progress Notes Filed: 10/20/2023 14:58 Note Text: Chief Complaint Patient presents with: F/U 3 Month HPI J Luis Madera is a 73 year old male who presents here today for a 3 month follow up. Pt here today for a 3 month follow up. Last seen in office after he was discharged from the Hospital. Balance - Was referred to PT due to ongoing issues with his balance and feeling unsteady on his feet. Did complete two sessions per Epic, but pt states he was just extended for 4 more visits. Uses a cane when ambulating. Neuro - Was referred to Neurology due to ongoing issues of dizziness and hx. Pt hx of cerebral palsy, generalized convulsive epilepsy/seizures, chronic right spastic hemiparesis/weakness and imbalance. Pt has labs and imaging ordered at [facility] with Neuro in July. MRI Brain, Consult to Neuro and Cardiology was done as well. Pt was advised to f/u in 3 months. Pt currently taking Tegretol 200 mg 1 tab in the am and 2 in the pm and Keppra 500 mg 1 tab po bid. Cardio - Was seen by Dr. Mccrary on 08/28/23 for dizziness and syncope and collapse. At visit and with pt's symptoms an Echo, US Carotid arteries b/l and Zio were ordered. Pt to f/u in 3 months. Thyroid - Pt on current regimen of Levothyroxine 100 mcg once daily. Reports he feels okay on current dosage. Denies any missed dosages feels stable on this dosage. Breathing stable. HM - Currently checking into Adv Dir/Living Will at this time. Declines Covid vaccine at this time. Past medical history, appointments, medications, allergies reviewed. Previous Medical History PAST MEDICAL HISTORY Diagnosis Date ASA CLASS III 05/10/2002 Benign neoplasm of colon Cerebral palsy (HCC) 06/27/2014 COPD with chronic bronchitis 12/02/2016 Debility Diarrhea Hypoxia 2018 Infantile cerebral palsy, unspecified Other convulsions Partial small bowel obstruction (HCC) 06/27/2014 Peroneal DVT (deep venous thrombosis) (HCC) 09/05/2013 Right spastic hemiparesis (HCC) 06/27/2014 Screening for malignant neoplasm of colon 02/01/2016 Seasonal allergic rhinitis Spring through . Seizures (HCC) Small bowel obstruction (HCC) Suspected chronic obstructive pulmonary disease based on initial evaluation ([facility]) 2018 Previous Surgical History PAST SURGICAL HISTORY Procedure Laterality Date COLONOSCOPY FLX DX W/COLLJ SPEC WHEN PFRMD 02/01/2016 Repeat 01/2026 COLSC FLX W/RMVL OF TUMOR POLYP LESION SNARE TQ 02/05/10 COLSC FLX W/RMVL OF TUMOR POLYP LESION SNARE TQ 04/02/12 CRANIECTOMY/CRANIOTOMY EXPL SUPRATENTORIAL 1980 Craniotomy LAPAROSCOPY COLECTOMY PARTIAL W/ANASTOMOSIS 03-17-10 PAST SURGICAL HISTORY OF Mid-60's Rt. hand AND Rt foot surgery to correct defect Family History FAMILY HISTORY Problem Relation Age of Onset Hypertension Father Breast Cancer Mother Allergies Mother Hay fever. None Sister Asthma Paternal Grandmother Patient Allergies ALLERGIES Allergen Reactions Seasonal Allergies Other: See Comments Current Medications Current Outpatient Medications on File Prior to Visit Medication Sig levothyroxine (LEVOXYL) 100 mcg tablet Take 1 tablet by mouth once daily. Take on empty stomach. For Thyroid carBAMazepine (TEGRETOL) 200 mg tablet one tablet every AM, and 2 every evening fluticasone-salmeterol (ADVAIR DISKUS) 500-50 mcg/dose dsdv Inhale 1 Puff as instructed two times a day. levETIRAcetam (KEPPRA) 500 mg tablet Take 1 tablet by mouth two times a day. No current facility-administered medications on file prior to visit. Social History Social History Tobacco Use Smoking status: Former Packs/day: 1.50 Years: 40.00 Additional pack years: 0.00 Total pack years: 60.00 Types: Cigarettes Start date: 1968 Quit date: 05/09/2007 Years since quittin.4 Smokeless tobacco: Never Tobacco comments: Father smoked in childhood home. Prior roomate smoked. Substance Use Topics Alcohol use: Yes Comment: Very occasionally. Drug use: No EXAM: BP 122/74 (BP Site: Left Arm, BP Position: Sitting, BP Cuff Size: Large Adult) Pulse 82 Resp 18 Wt 91.4 kg (201 lb 6.4 oz) BMI 35.68 kg/m? General Appearance: Well appearing, alert, in no acute distress, well-hydrated, well nourished. and cerebral palsy. Lungs: Lungs clear to auscultation. No wheezing, rhonchi, rales.. Heart: RRR without murmur, gallop, or rubs. No ectopy. Health Maintenance List Shingrix Vaccine(1 of 2) Never done RSV Vaccine(1 - 1-dose 60+ series) Never done Covid-19 Vaccine(2022- season) due on 03/17/2023 Advance Directive Discussion due on 07/17/2023 Behavioral Health Screening Never done Annual PCP Team Chronic Disease Visit due on 07/04/2024 Colorectal Cancer Screening due on 01/31/2026 Diabetes Screening due on 06/05/2026 Lipid Screening due on 06/05/2028 DTaP,Tdap,Td Vaccine(2 - Td (more content not included)... [facility] 10-19-2023 Miscellaneous Notes Form signed and faxed back to information below. Julieta Mckay MA Type of form: 90 day order from [employer] Form received via fax When form is completed, Fax form to [phone] Form has been forwarded to Physician Desk: Dr. Jorge Mckay MA documented in this encounter [facility] 10-05-2023 Note HNO ID: [id number] Author: JAGRUTI TSANG PT Service: ? Author Type: Physical Therapist Type: Progress Notes Filed: 10/05/2023 07:53 Note Text: Summary: PT DC 10/05/2023 [facility] REHABILITATION AND SPORTS THERAPY PHYSICAL THERAPY DISCONTINUANCE OF CARE Plan of Care Period: Start of Care Date: 07/14/23 Last Visit Date: 08/08/2023 Therapy Program: The following is a summary of the interventions provided for this episode of care; Therapeutic exercise, Neuromuscular re-education, and Therapeutic activities Assessment: The following is the goal status: Goals for Episode of Care: created on 07/14/23 through 09/12/23. Updated 08/08/23. Patient will increase strength of R lower extremity 1 MMT grade as tolerated to allow patient to improve gait mechanics/gait pattern and improve ability to negotiate stairs. (ongoing) Patient will increase flexibility of RLE to improve ability to maintain proper posture, gait stability , balance AND improve mechanics. (ongoing) Patient will be able to correct postural deviations independently in order to improve balance , gait . (ongoing) Patient will demonstrate current home exercise program independently. (ongoing) Improve score on Timed Up and Go by 10%. (not met, ongoing) Improve score on Ruiz Balance Scale by 3 points to meet MCID. (not tested today due to time restraint) Patient Goals: to improve balance and walking (ongoing) Based on the most recent progress report, patient was progressing as expected toward functional goals based on documented subjective information on progress and documented objective information regarding balance. Reason for Discontinuation of Care: Patient has not returned to therapy or scheduled additional follow-up appointments. Jagruti Tsang, BHAVYA [facility] 08-28-2023 Note HNO ID: [id number] Author: RACHELLE PEARL RN Service: ? Author Type: Registered Nurse Type: Progress Notes Filed: 08/28/2023 11:43 Note Text: EVENT MONITOR DISPOSABLE PATCH INSTRUCTIONS Patient Name: J Luis Madera [facility] Number: [id number] Skin prepped and cleansed with alcohol Patch secured to prepped area Monitor Activated Serial #: [id number] Patient Instructed: Prescribed order timeframe Bathing guidelines Usage of event button and diary documentation Return of monitor at the end of prescribed order Call with problems [phone] or [phone] ext. [phone] Patient expresses a good understanding of instructions Rachelle Pearl RN [facility] 08-28-2023 History of Presen t illness Narrative EVENT MONITOR DISPOSABLE PATCH INSTRUCTIONS Patient Name: J Luis Madera [facility] Number: [id number] Skin prepped and cleansed with alcohol Patch secured to prepped area Monitor Activated Serial #: [id number] Patient Instructed: Prescribed order timeframe Bathing guidelines Usage of event button and diary documentation Return of monitor at the end of prescribed order Call with problems [phone] or [phone]. [phone] Patient expresses a good understanding of instructions Rachelle Pearl RN Images from the original note were not included. [facility]IONAL CARDIOLOGY Cardiology ([address]) [address] [facility] [address] OUTPATIENT VISIT DATE 08/28/2023 PRIMARY CARE PHYSICIAN: Usman Patel [address] [place] [address] REFERRING PHYSICIAN: Temitope Lara [address] [facility] [address] CHIEF COMPLAINT: Dizziness HISTORY OF PRESENT ILLNESS: Mr. Madera is a 73 year old gentleman with the history of cerebral palsy right-sided weakness who is referred for evaluation of palpitations and dizziness. Patient reports having lightheaded symptoms for the past 2 years. He is of intermittent symptoms of lightheadedness that occur mostly with ambulation. He was seen in the emergency room and June at which time he had vertiginous symptoms with room spinning. Although, most of his episodes of lightheadedness are not associated with room spinning. On occasion he will feel his heart racing. He has not had symptoms of chest pain or pressure. He has had chronic shortness of breath on exertion which he blames on a prior smoking history. 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 Seizures (HCC) Small bowel obstruction (HCC) Suspected chronic obstructive pulmonary disease based on initial evaluation (HCC) 2018 PAST SURGICAL HISTORY Procedure Laterality Date COLONOSCOPY FLX DX W/COLLJ SPEC WHEN PFRMD 02/01/2016 Repeat 01/2026 COLSC FLX W/RMVL OF TUMOR POLYP LESION SNARE TQ 02/05/10 COLSC FLX W/RMVL OF TUMOR POLYP LESION SNARE TQ 04/02/12 CRANIECTOMY/CRANIOTOMY EXPL SUPRATENTORIAL 1980 Craniotomy LAPAROSCOPY COLECTOMY PARTIAL W/ANASTOMOSIS 03-17-10 PAST SURGICAL HISTORY OF Mid-60's Rt. hand & Rt foot surgery to correct defect SOCIAL HISTORY Social History Tobacco Use Smoking status: Former Packs/day: 1.50 Years: 40.00 Additional pack years: 0.00 Total pack years: 60.00 Types: Cigarettes Start date: 1968 Quit date: 05/09/2007 Years since quittin.3 Smokeless tobacco: Never Tobacco comments: Father smoked in childhood home. Prior roomate smoked. Substance Use Topics Alcohol use: Yes Comment: Very occasionally. Drug use: No FAMILY HISTORY Problem Relation Age of Onset Hypertension Father Breast Cancer Mother Allergies Mother Hay fever. None Sister Asthma Paternal Grandmother ALLERGIES: ALLERGIES Allergen Reactions Seasonal Allergies Other: See Comments MEDICATIONS: levothyroxine (LEVOXYL) 100 mcg tablet Take 1 tablet by mouth once daily. Take on empty stomach. For Thyroid carBAMazepine (TEGRETOL) 200 mg tablet one tablet every AM, and 2 every evening fluticasone-salmeterol (ADVAIR DISKUS) 500-50 mcg/dose dsdv Inhale 1 Puff as instructed two times a day. levETIRAcetam (KEPPRA) 500 mg tablet Take 1 tablet by mouth two times a day. REVIEW OF SYSTEMS: Review of Systems Constitutional: Negative for chills, fever, malaise/fatigue and weight loss. HENT: Negative for hearing loss and sore throat. Eyes: Negative for blurred vision and double vision. Respiratory: Negative. Cardiovascular: Positive for palpitations. Genitourinary: Negative for dysuria, frequency, hematuria and urgency. Musculoskeletal: Negative. Skin: Negative. Neurological: Positive for dizziness. Negative for seizures, loss of consciousness, weakness and headaches. Endo/Heme/Allergies: Negative for environmental allergies. Does not bruise/bleed easily. Psychiatric/Behavioral: Negative for depression. PHYSICAL EXAMINATION: BP 151/64 Pulse 71 Resp 16 Wt 202 lb (91.6kg) SpO2 100% General: Pleasant gentleman sitting appears comfortable no apparent distress. He is alert and oriented x 3 HEENT: Carotid upstrokes are brisk bilaterally without bruits no JVD appreciated. Pulmonary: Lungs are clear no rales, wheezes, rhonchi Cardiovascular: Normal S1, S2 with regular rate and rhythm. No murmurs, rubs, or gallops Extremities well-perfused, no lower extremity edema. 2+ distal pulses CARDIOVASCULAR MEDICINE TESTING: CT Chest : Heart, pericardium, and thoracic vessels: The thoracic aorta and main pulmonary artery are normal in caliber. The cardiac chambers are normal in size. Coronary artery atherosclerotic calcifications are noted, although the study is not optimized for coronary assessment. Trace pericardial fluid. IMPRESSION: Mr. Madera is a 73 year old gentleman with a history of cerebral palsy who is referred for evaluation of lightheadedness, dizziness, possible palpitations. Patient's symptoms are difficult to evaluate. He has some episodes in the past which seem to be more consistent with benign positional vertigo. PLAN AND RECOMMENDATIONS: 1. Syncope and collapse - ICD9: 780.2, ICD10: R55 - ECHO - PERFLUTREN LIPID MICROSPHERES 1.1 MG/ML INJECTION IN NS 10 ML - SODIUM CHLORIDE 0.9 % (FLUSH) INJECTION SYRINGE - CAROTID ARTERIES BRIGHT VAS LAB - OUTSIDE VENDOR CARDIAC OUTPATIENT EXTENDED RHYTHM RECORDING (WITHOUT TELEMETRY) 2. Vasovagal syncope - ICD9: 780.2, ICD10: R55 3. Palpitations - ICD9: 785.1, ICD10: R00.2 - ECHO - PERFLUTREN LIPID MICROSPHERES 1.1 MG/ML INJECTION IN NS 10 ML - SODIUM CHLORIDE 0.9 % (FLUSH) INJECTION SYRINGE - OUTSIDE VENDOR CARDIAC OUTPATIENT EXTENDED RHYTHM RECORDING (WITHOUT TELEMETRY) Aiden Mccrary MD documented in this encounter [facility] 08-28-2023 Instructions Aiden Mccrary MD - 08/28/2023 10:48 AM EST We are ordering an Echocardiogram, Carotid ultrasound and a heart monitor documented in this encounter [facility] 08-28-2023 Note HNO ID: [id number] Author: AIDEN MCCRARY MD Service: ? Author Type: Physician Type: Progress Notes Filed: 08/28/2023 11:43 Note Text: [facility] SECTION [facility] REGIONAL CARDIOLOGY Cardiology ([facility]) [address] [facility] [id number] OUTPATIENT VISIT DATE 08/28/2023 PRIMARY CARE PHYSICIAN: Usman Patel [address] [place] [address] REFERRING PHYSICIAN: Temitope Lara [address] [facility] [address] CHIEF COMPLAINT: Dizziness HISTORY OF PRESENT ILLNESS: Mr. Madera is a 73 year old gentleman with the history of cerebral palsy right-sided weakness who is referred for evaluation of palpitations and dizziness. Patient reports having lightheaded symptoms for the past 2 years. He is of intermittent symptoms of lightheadedness that occur mostly with ambulation. He was seen in the emergency room and June at which time he had vertiginous symptoms with room spinning. Although, most of his episodes of lightheadedness are not associated with room spinning. On occasion he will feel his heart racing. He has not had symptoms of chest pain or pressure. He has had chronic shortness of breath on exertion which he blames on a prior smoking history. 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 Seizures ([facility]) Small bowel obstruction ([facility]) Suspected chronic obstructive pulmonary disease based on initial evaluation ([facility]) 2017 PAST SURGICAL HISTORY Procedure Laterality Date COLONOSCOPY FLX DX W/COLLJ SPEC WHEN PFRMD 02/01/2016 Repeat 01/2026 COLSC FLX W/RMVL OF TUMOR POLYP LESION SNARE TQ 02/05/10 COLSC FLX W/RMVL OF TUMOR POLYP LESION SNARE TQ 04/02/12 CRANIECTOMY/CRANIOTOMY EXPL SUPRATENTORIAL 1980 Craniotomy LAPAROSCOPY COLECTOMY PARTIAL W/ANASTOMOSIS 03-17-10 PAST SURGICAL HISTORY OF Mid-60's Rt. hand AND Rt foot surgery to correct defect SOCIAL HISTORY Social History Tobacco Use Smoking status: Former Packs/day: 1.50 Years: 40.00 Additional pack years: 0.00 Total pack years: 60.00 Types: Cigarettes Start date: 1968 Quit date: 05/09/2007 Years since quittin.3 Smokeless tobacco: Never Tobacco comments: Father smoked in childhood home. Prior roomate smoked. Substance Use Topics Alcohol use: Yes Comment: Very occasionally. Drug use: No FAMILY HISTORY Problem Relation Age of Onset Hypertension Father Breast Cancer Mother Allergies Mother Hay fever. None Sister Asthma Paternal Grandmother ALLERGIES: ALLERGIES Allergen Reactions Seasonal Allergies Other: See Comments MEDICATIONS: levothyroxine (LEVOXYL) 100 mcg tablet Take 1 tablet by mouth once daily. Take on empty stomach. For Thyroid carBAMazepine (TEGRETOL) 200 mg tablet one tablet every AM, and 2 every evening fluticasone-salmeterol (ADVAIR DISKUS) 500-50 mcg/dose dsdv Inhale 1 Puff as instructed two times a day. levETIRAcetam (KEPPRA) 500 mg tablet Take 1 tablet by mouth two times a day. REVIEW OF SYSTEMS: Review of Systems Constitutional: Negative for chills, fever, malaise/fatigue and weight loss. HENT: Negative for hearing loss and sore throat. Eyes: Negative for blurred vision and double vision. Respiratory: Negative. Cardiovascular: Positive for palpitations. Genitourinary: Negative for dysuria, frequency, hematuria and urgency. Musculoskeletal: Negative. Skin: Negative. Neurological: Positive for dizziness. Negative for seizures, loss of consciousness, weakness and headaches. Endo/Heme/Allergies: Negative for environmental allergies. Does not bruise/bleed easily. Psychiatric/Behavioral: Negative for depression. PHYSICAL EXAMINATION: BP 151/64 Pulse 71 Resp 16 Wt 202 lb (91.6kg) SpO2 100% General: Pleasant gentleman sitting appears comfortable no apparent distress. He is alert and oriented x 3 HEENT: Carotid upstrokes are brisk bilaterally without bruits no JVD appreciated. Pulmonary: Lungs are clear no rales, wheezes, rhonchi Cardiovascular: Normal S1, S2 with regular rate and rhythm. No murmurs, rubs, or gallops Extremities well-perfused, no lower extremity edema. 2+ distal pulses CARDIOVASCULAR MEDICINE TESTING: CT Chest : Heart, pericardium, and thoracic vessels: The thoracic aorta and main pulmonary artery are norm (more content not included)... [facility] 08-15-2023 Note HNO ID: [id number] Author: MARAH THOMAS RT(R) Service: ? Author Type: Technologist Type: Progress Notes Filed: 08/15/2023 13:59 Note Text: Radiology Service Progress Note PATIENT NAME: J Luis Madera DATE OF SERVICE: August 15, 2023 TIME: 1:58 PM PATIENT IDENTITY VERIFICATION COMPLETED USING TWO (2) IDENTIFIERS: Name and Date of confirmed by patient verbally. FALL SCREENING: Has the patient had 2 falls in the last year or 1 fall with injury or currently using an Ambulatory Assistive Device (Walker, Cane, Wheelchair, Crutches, etc.)? Yes, Patient High Risk for Falls What interventions were put in place to prevent falls during this visit? Instructed Patient to Call for Help if Needed, Offered Assistance with Transfers/Clothing, Instructed Patient to Remain Seated (Not on Exam Table) Until Exam, and Increased Observations by Caregivers PATIENT GENDER DATA: Male PATIENT RELEVANT IMPLANT DATA REVIEWED: Yes PATIENT PRESENTS WITH AN IMPLANTABLE OR ATTACHED ANIMAL SHELTER CLERK: No RADIOLOGY DEPARTMENT: MR; Exam(s) Completed: Spine: Cervical spine PERIPHERAL IV DATA: Not applicable SIGNED BY: RT Joelle(R) August 15, 2023 1:58 PM [facility] 08-08-2023 Note HNO ID: [id number] Author: MARY KAY BAIRES, PT, DPT Service: ? Author Type: Physical Therapist Type: Progress Notes Filed: 08/08/2023 15:36 Note Text: Episode Visit Count: 2 Therapist That Will Accept/Oversee The Plan Of Care: Deandre Joaquin Start of Care Date: 07/14/23 Onset Date: 06/14/23 (felt decreased balance , dizziness) Plan of Care Certification Date: 07/14/23 Next Certification Due Date: 09/12/23 Patient Identified by Name and Date of : Yes REHABILITATION AND SPORTS THERAPY PHYSICAL THERAPY PROGRESS REPORT PLAN OF CARE UPDATE: Assessment: J Luis Madera returns to clinic for first follow up visit since evaluation 3.5 weeks ago. He presents similarly and with no new complaints. His ability to attend follow up visits at this clinic is limited due to distance from home and need for transportation; he is requesting to transfer to the [facility] which is closer to home. He demonstrates difficulty with standing, walking, and physical activities. He has made no significant progress toward goals. Given patient's medical history, slow progress is anticipated. Patient continues to present with impairments in balance, flexibility, gait, and strength that interfere with walking in the house, walking in the community, rising from a chair, sitting, stair negotiation, bending, physical activities (impaired stability and balance) . Current prognosis is Fair due to: chronic nature of impairments, clinical presentation . He will benefit from continued skilled therapy services to meet the updated goals for this plan of care as noted below. Goals for Episode of Care: created on 07/14/23 through 09/12/23. Updated 08/08/23. Patient will increase strength of R lower extremity 1 MMT grade as tolerated to allow patient to improve gait mechanics/gait pattern and improve ability to negotiate stairs. (ongoing) Patient will increase flexibility of RLE to improve ability to maintain proper posture, gait stability , balance AND improve mechanics. (ongoing) Patient will be able to correct postural deviations independently in order to improve balance , gait . (ongoing) Patient will demonstrate current home exercise program independently. (ongoing) Improve score on Timed Up and Go by 10%. (not met, ongoing) Improve score on Ruiz Balance Scale by 3 points to meet MCID. (not tested today due to time restraint) Patient Goals: to improve balance and walking (ongoing) Planned Interventions, Frequency, and Duration: 1x/week, 8 weeks Total Number of Visits Planned: 8 Patient to be seen for Therapeutic exercise (49593), Neuromuscular re-education (08144), Therapeutic activities (17247), Self-residential management (33650), Gait Training (19021) PLAN FOR NEXT VISIT: Gait and balance training. Functional strengthening. Transfer of Care Due To: Closer to Home Patient transferring care to: [place] SUBJECTIVE: J Luis returns for first follow up since his eval; he is limited in ability to attend PT at this clinic due to distance from home and reliance on others for transportation. He would like to transfer to the [place] clinic. He denies falls since his last visit.. Functional Limitations: walking in the house, walking in the community, rising from a chair, sitting, stair negotiation, bending, physical activities (impaired stability and balance) Pain: Pain Pain Level: 0 PROMIS Scales Higher is Better 07/14/2023 Phys Func - Score 40 (mild dysfunction) Phys Func - Percentile 16% Self-Eff Symptom - Score 41 (Average) Self-Eff Symptom - Percentile 18% T-scores: mean of general population = 50. 5 points is clinically meaningfully difference Percentiles provide an indication of how the patient's score ranks in relation to the general population. Higher percentile rankings indicate better function/quality of life. 50th percentile is the average of the general population and indicates half of respondents had a worse score. OBJECTIVE MEASURES WITH LEVEL OF FUNCTION: LE Strength R Hip Flexion (L2): 4-/5 R Knee Extension (L3): 4/5 R Knee Flexion: 4/5 R Ankle Dorsiflexion (L4): 3/5 L Hip Flexion (L2): 4+/5 L Knee Extension (L3): 4+/5 L Knee Flexion: 4+/5 L Ankle Dorsiflexion (L4): 4+/5 Tone Tone: Spastic (R UE and LE) Gait Gait: Supervision Gait Device: Quad Cane Gait Deviations Right Lower Extremity: Foot clearance decreased, Hip Hike, Lacks hip extension beyond mid-stance, Stance time decreased, Step length decreased Gait Observation: trunk lean to right Functional Performance Test Results Timed Up and Go (sec): 37.48 sec TREATMENT: Therapeutic Exercise: 1: -reassessment 2: -education on objective findings, PT plan of care, and HEP 3: *sit to stand x5 4: *LAQ 5" x8 bilat 5: *seated active DF x5 bilat 6: -encouraged use of assistive device to reduce risk of falls Skilled Intervention: Patient was educated in proper exercise technique and purpose f (more content not included)... [facility] 07-19-2023 Note HNO ID: [id number] Author: Temitoep Lara PA-C Service: ? Author Type: Physician Esl Tutor Type: Progress Notes Filed: 07/19/2023 4:16 PM Note Text: Neurology Outpatient Clinic Date: July 19, 2023 Patient Name: J Luis Madera Referring physician: Usman Patel [address] [facility] [address] Consult requested for dizziness by Dr. Patel. Recommendations will be communicated via shared medical record or US mail. Primary physician: Usman Patel [address] [place] [address] Reason for Evaluation: Dizziness and seizures Subjective HPI: History is limited J Luis Madera is a 73 year old left-handed male with history of epilepsy, CP, imbalance, COPD, hypothyroidism, obesity, possible cerebellar infarct who presents for evaluation of gait change, dizziness. Dr. Patel is the referring physician and PCP. 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 He is here for established care with [facility] epilepsy department again. No seizure was reported since the last visit. (according to the last note, last seizure was in 2006). Patient denies any side effect of medications. 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 Saw PCP on 07/04/23, admitted on 06/25/23 for dizziness, meclizine. Positional dizziness, feels drunk. Sent to PT. ER visit on 06/23/23 "Patient presents to the emergency department complaint of dizziness that started yesterday. Patient states that it gets worse with standing and feels like sometimes things go around and round. Patient states he gets better when he lies down. He had similar episodes in the past but typically resolve after 24 hours. Patient denies any chest pain or shortness of breath. Denies any falls or head injuries. He denies recent illness. Denies any blood in stool or black tarry stool. Patient has history of cerebral palsy but normally ambulates on his own. " Patient presents for evaluation of dizziness and unsteadiness. Patient reports has been ongoing for many years, but had an episode of loss of consciousness on 06-23-2023. States he lives with his niece, stood up and had an episode of syncope. His niece called EMS and he was transported [facility]. Reported that his dizziness gets worse with standing but denies any presyncope or lightheaded sensation, described more of a room spinning dizziness. Improves when he sits down or lays down, has difficulty stating how often it occurs but notes that he falls from this dizziness once or twice a month. MRI obtained at [facility] showed no acute infarct and stable chronic changes. Patient does not remember much about his admission, states that no scans were obtained and has difficulty remembering. Notes that he has passed out in the past secondary to this dizziness and he estimates the last occurrence was 6 to 12 months ago. Denies any cardiac workup, states that he saw management rep when he was a child but none in his adult life. Denies any chest pain or palpitations. Patient saw his primary care provider on 07-04-2023 and sent to vestibular therapy. States he is completed a few episodes of this with some improvement in his symptoms. However, notes that it [place] 35 miles from his [place] and he is expressing concern with this. Drinks about 2 to 3 cups of water a day, 1-2 caffeinated beverages a day. Denies any numbness or tingling in his extremities or in his groin, but states he will occasionally get numbness and tingling on his head. Denies any history of diabetes, does not take any supplements, no heavy alcohol use that he can remember, no heavy metal exposure, no family history of neuropathy. Has chronic weakness on his right side (originally states that this weakness has only been prominent for a few years, but later states he was born with it ), more prominent in his arm and his leg, but notes this may have worsened over the last few months. However, feels this may be due to the fall he sustained in early June, states he fell on his right side injuring his right shoulder. No bowel bladder incontinence, no saddle anesthesia. States he still able to button buttons and open jars, full strength in his left upper extremity. Patient also with history of epilepsy. States he has had this since he was a teenager and has seen multiple neurologist over the years. Reports the last time seeing a epilepsy specialist was in the s, but on chart review last appointment was in 2017. States that his last seizure was about a year a (more content not included)... [facility] 07-14-2023 Note HNO ID: [id number] Author: Elsa Joaquin PT Service: ? Author Type: Physical Therapist Type: Progress Notes Filed: 07/15/2023 10:27 PM Note Text: Episode Visit Count: 1 Therapist That Will Accept/Oversee The Plan Of Care: Deandre Joaquin Start of Care Date: 07/14/23 Onset Date: 06/14/23 (felt decreased balance , dizziness) Plan of Care Certification Date: 07/14/23 Next Certification Due Date: 09/12/23 Patient Identified by Name and Date of : Yes Rehab Precautions: COPD; Fall Risk; Seizure (epilepsy) Mechanism of Injury: Insidious Onset [facility]HABIL[facility]ATION AND SPORTS THERAPY PHYSICAL THERAPY EVALUATION PLAN OF CARE: Assessment: J Luis Madera presents with diagnosis of balance problem, dizziness, with Medical hx: spastic hemiparesis affecting R UE/ lower extremity and balance deficits, functional mobility due to Cerebral palsy that interferes with walking in the house, walking in the community, rising from a chair, sitting, stair negotiation, bending, physical activities (impaired stability and balance) . He presents with impairments in balance, flexibility, gait, overall function, and strength. PROMIS? (Patient-Reported Outcomes Measurement Information System) scores were reviewed and physical function domain identified as a rehabilitation concern. Prognosis for therapy is Good due to: current objective clinical presentation, good overall health status Fair due to: chronic nature of impairments . He will benefit from skilled therapy services to meet the goals established for this plan of care as noted below. Goals for Episode of Care: created on 07/14/23 through 09/12/23 Patient will increase strength of R lower extremity 1 MMT grade as tolerated to allow patient to improve gait mechanics/gait pattern and improve ability to negotiate stairs. Patient will increase flexibility of RLE to improve ability to maintain proper posture, gait stability , balance AND improve mechanics. Patient will be able to correct postural deviations independently in order to improve balance , gait . Patient will demonstrate current home exercise program independently. Improve score on Timed Up and Go by 10%. Improve score on Ruiz Balance Scale by 3 points to meet MCID. Patient Goals: to improve balance and walking Planned Interventions, Frequency, and Duration: Current Frequency: 1x/week (1 x week or every other week, due to distance) Duration: Two months Total Number of Visits Planned: 8 Planned Treatment Interventions: Therapeutic exercise (62744), Neuromuscular re-education (74628), Therapeutic activities (27798) PLAN FOR NEXT VISIT: neuro training, LE flexibility, balance ex, and neuro tx Patient demonstrates good understanding of plan of care and treatment. The above goals and plan of care were discussed and agreed upon by patient/family. SUBJECTIVE: pt reports he is not sure why he was sent to come here vs [place], due to the long drive, here and he relies on his mother for transportation, but agreed to eval and post session agreed to try a few visits, and see how it works out . Patient Goals: to improve balance and walking Functional Limitations: walking in the house, walking in the community, rising from a chair, sitting, stair negotiation, bending, physical activities (impaired stability and balance) pt will consider checking into other modes of transportation also, as he realizes his mom may not always be able to drive him. Prior Level of Function: Independent with restrictions (needs AD QC, due to hemiparesis) Previous Treatment: None Falls Interview: Uses an assistive device Pain: Pain Pain Level: 0 Post Treatment Pain Post Treatment Pain Level: No Change PROMIS Scales Higher is Better 07/14/2023 Phys Func - Score 40 (mild dysfunction) Phys Func - Percentile 16% Self-Eff Symptom - Score 41 (Average) Self-Eff Symptom - Percentile 18% T-scores: mean of general population = 50. 5 points is clinically meaningfully difference Percentiles provide an indication of how the patient's score ranks in relation to the general population. Higher percentile rankings indicate better function/quality of life. 50th percentile is the average of the general population and indicates half of respondents had a worse score. OBJECTIVE MEASURES WITH LEVEL OF FUNCTION: Posture / Alignment Posture: Forward head, Increased thoracic kyphosis, Rounded shoulders, Decreased lumbar lordosis R Distal UE Alignment: in flexion synergy posture LE Observations: R LE rests in hip ER, and decreased end rg knee ext R LE Anatomical Alignment Weight-Bearing: (dynamically , advances LE in some flexion synergy) Sitting Posture: (mild inc WB on L side) Sensory Sensory Deficits: Light Touch LE AROM R Hip Extension: -7 Degrees R Knee Extension: -20 Degrees R Ankle Dorsiflexion: 0 Degrees R Ankle Plantar Flexion: 40 Degrees LE Flexibility Flexibility: Hip (more content not included)... [facility] 06-27-2023 History of Presen t illness Narrative Noted; will discuss at his follow up appt Usman Patel MD TRANSITION CARE MANAGEMENT (TCM) INITIAL CONTACT [employer] Outreach Provider Action/FYI: Patient calls and states that he was told by hospitalist that he was not getting enough blood to his brain and that primary care doctor should start patient on a blood thinner. Initial contact with patient post discharge, spoke to patient. Patient identified by name and . TRANSITION CARE MANAGEMENT INITIAL OUTREACH DOCUMENTATION: Date of Outreach: 06/27/2023 Outreach Attempt 1: Contact Made Date of Discharge 06/25/2023 Some recent data might be hidden SUMMARY: -Pt discharged from [facility] on 06/25/23. -Admitted for: dizziness Do you have a hospital follow up appointment with your PCP? Appointment on 07/04/23 with pcp. Yes. Remind patient of appointment date, time, and location. If not within 14 calendar days of discharge - please reschedule accordingly. MEDICATIONS: Many patients have questions or concerns about their medications once they are home. Were you prescribed any new medications? If yes, what are those medications? Meclizine TID 25 mg- Dizziness Were you told to hold any medications? No Were any of your medications discontinued? No Do you have any questions about getting or taking your medications? No Your discharge instructions/After visit Summary (AVS) are important in guiding you through the recovery process. Is there anything I might help you understand? No Do you have all the necessary equipment and supplies at home? Yes Medical records from recent hospitalization: Care Everywhere documented in this encounter [facility] 06-26-2023 Miscellaneous Notes I agree with the advice given Usman Patel MD Patient mother Batsheva calling her son is weak and can not stand up on his own today. She said he has fallen down several times today and she can not get him back up she is 89 years old. Mother said his right side of his body is weak and he needs to go to longterm, she can not care for him, she can not get him down the steps to first floor. Advised to call squad and have him go to ER for evaluation, would need 3 day stay at the hospital and then get longterm placement. documented in this encounter [facility] 06-25-2023 Discharge summary Note Date/Time June 25, 2023 12:25pm [facility] Medical Records Department [address] [place] [address] Discharge Summary 06/25/23 1223 MR#: [id number] Acct: [id number] Name: J LUIS MADERA Rep #:[id number] : 1950 73 From: Kike Putnam PCP: Dr. Usman Patel MD Status:AD M EDUARDO Location: MS3 NK626-5 Providers Date of Admission: 06/23/23 Date of Discharge: 06/25/23 Primary Care Physician: Dr. Usman Patel MD Reason For Visit: DIZZINESS Diagnosis Discharge Diagnosis (1) Dizziness: Status: Acute Code(s): R42 - Dizziness and giddiness (2) Generalized weakness: Status: Acute Code(s): R53.1 - Weakness Plan 73-year-old gentleman came to ED with dizziness that is started 1 day before admission. Gets worse with standing and vertigo Better with laying down. Similar episodes in the past and typically resolves 24 hours but not at this timeno fall or acute recent illness. 1. Generalized weakness and dizziness unclear etiology with history of cerebralpalsy: Patient is admitted to MedSurg floor. Etiology unclear but patient is asymptomatic while laying down on the breath. On meclizine. MRI brain reportedlarge chronic left subdural effusion or cystic hygroma no evidence for acute infarct. 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 Acute stroke ruled out. Patient denies burning micturition or dysuria symptoms. Chronic right upper extremity contraction from CP. 06/25: Orthostatic blood pressure does not show change in heart rate or blood pressure. Patient was educated about gradual change in position from supine to sitting and then standing. 2. COPD ? Not in exacerbation ? Continue with his home inhalers 3. Seizure disorder Patient is on carbamazepine and Keppra that might be giving dizziness. Follow-up with the PCP or neurologist. 4. Hypothyroidism: TSH 4.71 about upper limit. Free T4 is 0.82 on low normal therefore patient is discharged with increased dose of Synthroid 125 mcg daily. Prescription given. DVT: Heparin Discharge medication reconciliation done. Discharge follow-up instructions completed. Discharge process discussed with the patient and all questions wereanswered to patient's satisfaction. Follow with PCP in 1 to 2 weeks Total time spent, exact 35 minutes on discharge meds reconciliation, examination, coordination of care with nurses and ancillary staff, review of imaging and blood test and discussion with the patient on follow-up instructions. Medications at Discharge Home Medications carbamazepine 200 mg tablet 200 mg PO .COMPLEX seizures 08/29/17 levetiracetam 500 mg tablet 500 mg PO BID seizures 08/29/17 albuterol sulfate 90 mcg/actuation aerosol inhaler 2 puff inhalation Q4H PRN PRNwheezing/shortness of breath ##1 09/01/17 fluticasone 500 mcg-salmeterol 50 mcg/dose blistr powdr for inhalation 1 inh inhalation DAILY 06/23/23 levothyroxine 125 mcg tablet 125 mcg PO DAILY@0600 30 days #30 tabs 06/25/23 meclizine 25 mg tablet 25 mg PO TID PRN PRN Dizziness #30 tabs 06/25/23 Physical Exam Narrative Seen and examined. Dizziness and lightheadedness and vertigo has resolved. Patient has cerebral palsy and has right-sided weakness since childhood. Patient can eat and drink and is independent for ADL himself Physical exam General: Alert, Oriented x3, Cooperative HEENT: Atraumatic, PERRLA, EOMI, Normocephalic Oral: No Gingival or Mucosal Lesions/ Ulcerations Neck: Supple, No JVD, Negative Carotid Bruits Lungs: Air entry diminished in bilateral lung bases. No crepitation/rhonchi Cardiovascular: Regular rate, Regular Rhythm, Normal S1, Normal S2, No murmurs Abdomen: Bowel Sounds Present, Soft, Non Tender, Non-Distended : No renal angle tenderness. No suprapubic tenderness. Extremities: No edema, Capillary Refill Less than 3 Seconds Skin: No rashes, No breakdown Musculoskeletal: Right-sided weakness, more so RUE with contracture. RLE 4/5. ROM intact on left upper and lower extremity. Neurological: Cranial nerves II-XII grossly intact, DTR 2+/4. Cerebral palsy with right-sided weakness and some language abnormality since LDH Psych/Mental Status: Flat affect. Weight / BMI Weight Weight: 199 lb 8.293 oz Body Mass Index (BMI) 34.2 ABG / Lab / Microbiology Data 06/24/23 06:47 06/24/23 06:47 Laboratory: Laboratory Results - last 24 hr 06/25/23 05:11: Free T4 0.82 D/C Instructions Discharge Diet: No restrictions Weight Bearing Status: Weight bearing as tolerated Call your doctor if you observe: Fever of 101 or Higher, Coldness, Increased Pain, Numbness or Tingling, Change in Color, Inability to urinate, Inability to have a bowel movement, Shortness of breath, Dizziness, Fainting spells, Swellingin the ankles, Chest pain, Prolonged hiccupping, Increased palpitations (irregular heartbeat) and Calf discomfort When: IN 2 WEEKS Meaningful Use Info Meaningful Use Diagnoses (Choose all that apply): None applicable Discharge Plan Admission Admit Date/Time: 06/23/23 17:06 Attending Provider: Kike Malave Primary Care Provider: Usman Patel Consulting Providers: Raoul Oliver Instructions Additional Instructions / Restrictions: Advised outpatient PT and OT. Education given about slow and gradual change in position from supine to sitting and then standing to take pause for about 30 seconds to 1 minute. Discharge Orders/Prescriptions Prescriptions: New meclizine 25 mg Tablet 25 mg PO TID PRN PRN (Reason: Dizziness) Qty: 30 0RF levothyroxine 125 mcg Tablet 125 mcg PO DAILY@0600 30 Days Qty: 30 2RF Rx Instructions: Repeat TSH and free T4 after 6 weeks Continued levetiracetam 500 MG tablet 500 mg PO BID Patient Comments: seizures carbamazepine 200 MG tablet 200 mg PO .COMPLEX Patient Comments: seizures Rx Instructions: 200 mg orally pt takes 1 tab in am and 2 tabs at hs; takes 1 tab every am and2 tabs at bedtime albuterol sulfate 1 PUFF inhaler 2 puff INHALATION Q4H PRN PRN (Reason: wheezing/shortness of breath) Qty: 1 0RF fluticasone propion-salmeterol 500-50 mcg/dose blister with device 1 inh INHALATION DAILY Discontinued levothyroxine 100 mcg tablet 100 mcg PO DAILY Referrals / Follow Up: Usman Patel MD [Primary Care Provider] - Within 1 Week Disposition Disposition (needs filled in before D/C Order can be placed): Home, Self Care Charges/Coding Visit Charges Inpatient E&M: 37334 Disch Hosp >30min 06/25/23 1228 <Electronically signed by Kike Malave MD> Cosigner Signature (if applicable): CC: Dr. Usman Patel MD; Dr. Kike Malave MD~ Signed [facility] Work Phone: 1(922) 665-466112-10-2023 Discharge summary Author Kike Malave [facility] June 25, 2023 12:23pm Note Date/Time June 25, 2023 11:53am [facility] Medical Records Department [address] [place] [address] Instructions for Home/Discharge Instructions 06/25/23 1000 MR#: [id number] Acct: [id number] Name: J LUIS MADERA Rep #:[id number] : 1950 73 From: Kike Putnam PCP: Dr. Usman Patel MD Status:AD M EDUARDO Discharge Instructions Diet Discharge Diet: No restrictions Activity Discharge Activity: Return to Normal Activity, May Not Drive and Use Walker Weight Bearing Status: Weight bearing as tolerated Dressing / Incision Call your doctor if you observe: Fever of 101 or Higher, Coldness, Increased Pain, Numbness or Tingling, Change in Color, Inability to urinate, Inability to have a bowel movement, Shortness of breath, Dizziness, Fainting spells, Swellingin the ankles, Chest pain, Prolonged hiccupping, Increased palpitations (irregular heartbeat) and Calf discomfort Follow Up Care When: IN 2 WEEKS Test Results: Test results from this visit will be discussed in further detail at your follow- up appointment, if applicable. Discharge Plan Admission Admit Date/Time: 06/23/23 17:06 Attending Provider: Kike Malave Primary Care Provider: Usman Patel Consulting Providers: Raoul Oliver Instructions Additional Instructions / Restrictions: Advised outpatient PT and OT. Education given about slow and gradual change in position from supine to sitting and then standing to take pause for about 30 seconds to 1 minute. Discharge Orders/Prescriptions Prescriptions: New meclizine 25 mg Tablet 25 mg PO TID PRN PRN (Reason: Dizziness) Qty: 30 0RF Continued levetiracetam 500 MG tablet 500 mg PO BID Patient Comments: seizures carbamazepine 200 MG tablet 200 mg PO .COMPLEX Patient Comments: seizures Rx Instructions: 200 mg orally pt takes 1 tab in am and 2 tabs at hs; takes 1 tab every am and2 tabs at bedtime albuterol sulfate 1 PUFF inhaler 2 puff INHALATION Q4H PRN PRN (Reason: wheezing/shortness of breath) Qty: 1 0RF levothyroxine 100 mcg tablet 100 mcg PO DAILY fluticasone propion-salmeterol 500-50 mcg/dose blister with device 1 inh INHALATION DAILY Referrals / Follow Up: Usman Patel MD [Primary Care Provider] - Within 1 Week Disposition Disposition (needs filled in before D/C Order can be placed): Home, Self Care 06/25/23 1223<Electronically signed by Kike Malave MD>Kiek Malave MD CC: Dr. Usman Patel MD; Dr. Raoul Oliver MD ~ Signed [facility] Work Phone: 1(551) 730-320912-09-2023 Progress note Author [facility] June 24, 2023 12:00pm Note Date/Time June 24, 2023 7 :37am [facility] Medical Records Department [address] [place] [id number] Progress Note - Hospitalist 06/24/23 0735 MR#: [id number] Acct: [id number] Name: J LUIS MADERA Rep #:[id number] : 1950 73 From: Kike Putnam PCP: Dr. Usman Patel MD Status:ADARSH CLARK [id number] Reason for Visit Reason for Visit: Diagnoses Dizziness and giddiness (06/23/23) Weakness (06/23/23) Objective Data Objective Data Vital Signs: Vital Signs Temp Pulse Resp BP Pulse Ox O2 Del Method 97.7 F L 75 18 124/68 H 100 Room Air 06/24/23 05:27 06/24/23 07:05 06/24/23 07:05 06/24/23 05:27 06/24/23 05:27 06/24/23 05:27 Oxygen Delivery Method Room Air Weight: 199 lb 8.293 oz Body Mass Index (BMI) 34.2 Intake & Output: Intake and Output for Last 24 Hours 06/22/23 06/23/23 06/24/23 23:59 23:59 23:59 Intake Total 1000 / 1000 200 / 200 Balance 1000 / 1000 200 / 200 Lab / Micro Data 06/24/23 06:47 06/24/23 06:47 Labs: Laboratory Results - last 24 hr 06/23/23 14:20: WBC 9.3, RBC 3.81 L, Hgb 12.3 L, Hct 37.3 L, MCV 97.9 H, MCH 32.3 H, MCHC 33.0, RDW Std Deviation 46.9 H, RDW Coeff of Julius 13.2, Plt Count 277, MPV 9.9, Immature Gran % (Auto) 0.900, Neut % (Auto) 71.2 H, Lymph % (Auto)16.1 L, Cocke % (Auto) 8.6, Eos % (Auto) 2.3, Baso % (Auto) 0.9, Absolute Neuts (auto) 6.7, Absolute Lymphs (auto) 1.50, Nucleated RBC % 0, Sodium 139, Potassium 3.8, Chloride 109 H, Carbon Dioxide 27.0, Anion Gap 3 L, BUN 12, Creatinine 1.26, Estim Creat Clear Calc 45.42, Est GFR (MDRD) Af Amer 72, Est GFR (MDRD) Non-Af 60, BUN/Creatinine Ratio 9.5 L, Glucose 108 H, Calcium 8.4 L, Troponin I High Sens 6, TSH 4.71 H 06/23/23 15:19: Urine Color Yellow, Urine Clarity Clear, Urine pH 6.0, Ur Specific [place] 1.015, Urine Protein 15 H, Urine Glucose (UA) 100 H, Urine Ketones Negative, Urine Occult Blood Negative, Urine Nitrite Negative, Urine Bilirubin Negative, Urine Urobilinogen Normal, Ur Leukocyte Esterase Negative, Urine RBC 0 SEEN, Urine WBC 0 SEEN, Ur Squamous Epith Cells 0-5 SEEN, Urine Bacteria 0 SEEN, Urine Mucus 0 SEEN 06/24/23 06:47: WBC 5.7, RBC 3.54 L, Hgb 11.4 L, Hct 35.1 L, MCV 99.2 H, MCH 32.2 H, MCHC 32.5, RDW Std Deviation 48.0 H, RDW Coeff of Julius 13.1, Plt Count 249, MPV 10.0, Immature Gran % (Auto) 0.700, Neut % (Auto) 57.0, Lymph % (Auto) 24.4, Cocke % (Auto) 11.4 H, Eos % (Auto) 5.3 H, Baso % (Auto) 1.2 H, Absolute Neuts (auto) 3.3, Absolute Lymphs (auto) 1.39, Nucleated RBC % 0 Radiography Diagnostic Testing: Radiology Impression Brain CT 06/23/23 14:09 IMPRESSION: Chronic involutional changes of the brain. Stable examination. Electronically Signed: Vj Fisher MD at 14:57 EST , Brain MRI 06/23/23 16:36 IMPRESSION: Mild atrophy and minor periventricular white matter ischemic changes. 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 No evidence for acute infarct Electronically Signed: Jani Solorio MD at 19:12 EST , Physical Exam Narrative Seen and examined. Patient has cerebral palsy and has right-sided weakness since childhood. He states while he is laying on the bed he does not feel dizzy lightheaded or vertigo but when he gets up if still has little bit symptoms. Patient can eat and drink and is independent for ADL himself Physical exam General: Alert, Oriented x3, Cooperative HEENT: Atraumatic, PERRLA, EOMI, Normocephalic Oral: No Gingival or Mucosal Lesions/ Ulcerations Neck: Supple, No JVD, Negative Carotid Bruits Lungs: Air entry diminished in bilateral lung bases. No crepitation/rhonchi Cardiovascular: Regular rate, Regular Rhythm, Normal S1, Normal S2, No murmurs Abdomen: Bowel Sounds Present, Soft, Non Tender, Non-Distended : No renal angle tenderness. No suprapubic tenderness. Extremities: No edema, Capillary Refill Less than 3 Seconds Skin: No rashes, No breakdown Musculoskeletal: Right-sided weakness, more so RUE with contracture. RLE 4/5. ROM intact on left upper and lower extremity. Neurological: Cranial nerves II-XII grossly intact, DTR 2+/4. Cerebral palsy with right-sided weakness and some language abnormality since LDH Psych/Mental Status: Flat affect. Assessment & Plan Assessment/Plan (1) Dizziness: (2) Generalized weakness: PLAN: Plan 73-year-old gentleman came to ED with dizziness that is started 1 day before admission. Gets worse with standing and vertigo Better with laying down. Similar episodes in the past and typically resolves 24 hours but not at this timeno fall or acute recent illness. 1. Generalized weakness and dizziness unclear etiology with history of cerebralpalsy: Patient is admitted to MedSurg floor. Etiology unclear but patient is asymptomatic while laying down on the breath. On meclizine. MRI brain reportedlarge chronic left subdural effusion or cystic hygroma no evidence for acute infarct. 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 Acute stroke ruled out. Patient denies burning micturition or dysuria symptoms. Chronic right upper extremity contraction from CP. 2. COPD ? Not in exacerbation ? Continue with his home inhalers 3. Seizure disorder ? Continue with Keppra 4. Hypothyroidism: TSH 4.71 about upper limit. Free T4 ordered. Synthroid dose increased. DVT: Heparin Charges/Coding Visit Charges Inpatient E&M: 71542 Subs Hosp L2 06/24/23 1200 <Electronically signed by Kike Malave MD> Cosigner Signature (if applicable): CC: ~ Signed [facility] [facility] Work Phone: 1(954) 927-563512-09-2023 Discharge summary Author Ethan Martinez [facility] June 23, 2023 11:16pm Note Date/Time June 23, 2023 2 :12pm [facility] Medical Records Department [address] [place] [address] Emergency Department Summary 06/23/23 MR#: [id number] Acct: [id number] Name: J LUIS MADERA Rep #:[id number] : 1950 73 From: Ethan Martinez DO PCP: Dr. Usman Patel MD Status:AD M EDUARDO Location: MS3 [id number] [facility] History of Present Illness Chief Complaint: Dizziness Detail of Chief Complaint: Dizziness Informant: patient Narrative Narrative: Patient presents to the emergency department complaint of dizziness that startedyesterday. Patient states that it gets worse with standing and feels like sometimes things go around and round. Patient states he gets better when he lies down. He had similar episodes in the past but typically resolve after 24 hours. Patient denies any chest pain or shortness of breath. Denies any falls or head injuries. He denies recent illness. Denies any blood in stool or blacktarry stool. Patient has history of cerebral palsy but normally ambulates on his own. [facility] Medical History (Updated 06/23/23 @ 16:[address] Ethan Martinez, ) COPD with exacerbation DVT of proximal lower limb History of cerebral palsy History of seizures Post-nasal drip Suspected chronic obstructive pulmonary disease based on initial evaluation Home Medications carbamazepine 200 mg tablet 200 mg PO TID seizures 08/29/17 [History Last Taken 08/29/17 11:30] levetiracetam 500 mg tablet 500 mg PO BID seizures 08/29/17 [History Last Taken 08/29/17 11:30] albuterol sulfate 90 mcg/actuation aerosol inhaler 2 puff inhalation Q4H PRN PRNwheezing/shortness of breath ##1 09/01/17 [Rx Last Taken Unknown] budesonide-formoterol HFA 160 mcg-4.5 mcg/actuation aerosol inhaler 10.2 gm IH BID ##1 09/01/17 [Rx Last Taken Unknown] ipratropium bromide 42 mcg (0.06 %) nasal spray 2 spray NASAL TID ##1 09/01/17 [Rx Last Taken Unknown] prednisone 10 mg tablet 10 mg PO UD #30 tabs 09/01/17 [Rx Last Taken Unknown] doxycycline monohydrate 100 mg capsule 100 mg PO BID #20 caps 10/19/18 [Rx Last Taken Unknown] prednisone 20 mg tablet 60 mg (3 x 20 mg) PO DAILY #15 tabs 10/19/18 [Rx Last Taken Unknown] fluticasone 500 mcg-salmeterol 50 mcg/dose blistr powdr for inhalation 1 inh inhalation DAILY 06/23/23 [History Last Taken Unknown] levothyroxine 100 mcg tablet 100 mcg PO DAILY 06/23/23 [History Last Taken Unknown] Allergy/AdvReac Type Severity Reaction Status Date / Time No Known Allergies Allergy Verified 06/23/23 13:14 Social History Smoking Status: Former smoker second hand exposure: No alcohol intake: never substance use type: does not use caffeine: Yes Type: coffee Number of servings: 2 and tea what type of physical activity do you participate in: none ROS ROS ED Review of Systems ROS Unobtainable: other Constitutional Constitutional ED: Reports lethargy; Denies chills, fever(s), sweats or weight loss Eyes Eyes: Denies blurry vision, change in vision or diplopia ENT ENT ED: Denies rhinorrhea or sore throat Cardiovascular Cardiovascular: Denies chest pain, orthopnea or racing heartbeat Respiratory/Chest Respiratory/Chest: Denies cough, dyspnea, dyspnea on exertion, orthopnea or sputum Gastrointestinal Gastrointestinal: Denies abdominal pain, diarrhea, nausea or vomiting Genitourinary Genitourinary ED: Denies dysuria, hematuria or urinary frequency Musculoskeletal Musculoskeletal: Denies arthralgias, back pain, myalgias or neck pain Integumentary Denies abscess, Abrasions or rash Neurologic Neurologic: Reports other Details: Dizziness ; Denies headache(s) or weakness Psychiatric Psychiatric: Denies anxiety, depression or suicidal thoughts Endocrine Endocrinology: Denies polydipsia, polyphagia or polyuria Hematologic/Lymphatic Hematologic/Lymphatic: Denies easy bleeding, easy bruising or lymphadenopathy Allergic/Immunologic Allergic/Immunologic ED: Denies mouth swelling, tongue swelling or urticaria EXAM Physical Exam Const Vital Signs: 06/23/23 13:14 06/23/23 15:37 06/23/23 16:27 Temperature 97.4 F L Temperature Source Oral Pulse Rate 82 74 Pulse Rate [Lying] 74 Pulse Rate [Sitting (for 1 minute prior to obtaining)] 77 Pulse Rate [Standing (for 1 minute prior to obtaining)] 80 Respiratory Rate 16 15 Blood Pressure 124/65 H 128/78 H Blood Pressure [Lying] 136/74 H Blood Pressure [Sitting (for 1 minute prior to obtaining)] 125/80 H Blood Pressure [Standing (for 1 minute prior to obtaining)] 130/80 H Blood Pressure Mean 84 94 Blood Pressure Mean [Lying] 94 Blood Pressure Mean [Sitting (for 1 minute prior to obtaining)] 95 Blood Pressure Mean [Standing (for 1 minute prior to obtaining)] 96 Pulse Ox 98 94 Oxygen Delivery Method Room Air Positive well nourished and well developed General Appearance ED: well developed and NAD HEENT Reports TM's clear and moist mucous membranes normocephalic and atraumatic; Negative for trauma or tenderness Tympanic Membrane ED: Yes TM's clear Eyes PERRL and EOMs intact bilaterally General Eye ED: Negative for pale conjunctiva or scleral icterus Neck no lymphadenopathy, supple and no JVD General: Negative for tenderness Chest Wall inspection of chest normal and palpation of chest normal Chest: Negative for tenderness Resp normal respiratory effort and clear to auscultation bilaterally Effort and Inspection: Negative for respiratory distress or pain with movement Auscultation: Negative for rhonchi, wheezes or diminished lung sounds Cardio regular rate, regular rhythm, S1 normal heart sound, S2 normal heart sound and no murmurs Peripheral Pulses: pulses 2+ throughout GI normal to inspection, nondistended, normoactive bowel sounds, soft to palpation,non-tender, non-distended and no masses Back/Spine no CVA tenderness and no thoracic nor lumbar tenderness Extremity normal to inspection General Extremety ED: Negative for edema General Extremity: Negative for edema Neuro oriented x3, CN's II-XII intact bilaterally, no sensory deficits noted and gait normal Neuro Narrative: Right arm chronically contracted secondary to history of cerebral palsy. Hallpike maneuver negative for nystagmus. And could not reproduce his symptoms. No focal deficits otherwise. Sensorium / Orientation: awake, alert, oriented to person, oriented to place andoriented to time Motor Exam: strength 5/5 throughout and strength abnormal Psych mental status grossly normal Skin no rashes or lesions noted and no wounds MDM MDM MDM Narrative Medical decision making narrative: Complaints with a complaint of dizziness. Hallpike maneuver was negative for nystagmus. Says he is better with laying flat. Orthostatic vital signs were unremarkable however he did complain of dizziness the entire time. CT scan of the brain obtained was unremarkable. EKG obtained showed sinus rhythm with a rate of 78 bpm with no acute ST segment changes. CBC with differential unremarkable. Chemistries unremarkable. Your is unremarkable. At this point etiology of dizziness unclear. I did order 1 dose of Antivert. Discussed case with hospitalist will evaluate patient for admission as family concerned about taking him home as they are not able to care for him as he is unable to stand and walk currently. Hospitalist asked that I try to obtain an MRI of the patient's brain and will admit at least for observation. Lab Data Attestation: I reviewed the patient's lab results. Labs: Laboratory Results - last 24 hr 06/23/23 06/23/23 14:20 15:19 WBC 9.3 RBC 3.81 L Hgb 12.3 L Hct 37.3 L MCV 97.9 H MCH 32.3 H MCHC 33.0 RDW Std Deviation 46.9 H RDW Coeff of Julius 13.2 Plt Count 277 MPV 9.9 Immature Gran % (Auto) 0.900 Neut % (Auto) 71.2 H Lymph % (Auto) 16.1 L Cocke % (Auto) 8.6 Eos % (Auto) 2.3 Baso % (Auto) 0.9 Absolute Neuts (auto) 6.7 Absolute Lymphs (auto) 1.50 Nucleated RBC % 0 Sodium 139 Potassium 3.8 Chloride 109 H Carbon Dioxide 27.0 Anion Gap 3 L BUN 12 Creatinine 1.26 Estim Creat Clear Calc 45.42 Est GFR (MDRD) Af Amer 72 Est GFR (MDRD) Non-Af 60 BUN/Creatinine Ratio 9.5 L Glucose 108 H Calcium 8.4 L Troponin I High Sens 6 Urine Color Yellow Urine Clarity Clear Urine pH 6.0 Ur Specific [place] 1.015 Urine Protein 15 H Urine Glucose (UA) 100 H Urine Ketones Negative Urine Occult Blood Negative Urine Nitrite Negative Urine Bilirubin Negative Urine Urobilinogen Normal Ur Leukocyte Esterase Negative Urine RBC 0 SEEN Urine WBC 0 SEEN Ur Squamous Epith Cells 0-5 SEEN Urine Bacteria 0 SEEN Urine Mucus 0 SEEN Radiography Diagnostic Testing: Clinical Impression(s) from Imaging Studies Brain CT 06/23/23 14:09 IMPRESSION: Chronic involutional changes of the brain. Stable examination. Electronically Signed: Vj Fisher MD at 14:57 EST , EKG Initial EKG: Attestation: I personally reviewed and interpreted this EKG as follows: Comments: Sinus rhythm with a rate of 78 bpm with no acute ST segment changes Discharge Plan Dx/Rx/DC Orders Clinical Impression: Dizziness, Hx of cerebral palsy, Generalized weakness Disposition Disposition: Acute Care Hospital [facility] What to do if you have Problems For any increased pain, shortness of breath, bleeding, nausea or vomiting, chestpain, or any unexpected problems, contact your Primary Care Provider. Call [facility] ([phone]) or report to the closest Emergency Room. Call 911 if necessary. 06/23/23 0706 <Electronically signed by Ethan Martinez DO> Cosigner Signature (if applicable): CC: Dr. Usman Patel MD ~ Signed [facility] Work Phone: 1(840) 425-963412-08-2023 History and physical note Author Raoul Oliver [facility] June 23, 2023 6:57pm Note Date/Time June 23, 2023 5 :22pm [facility] Medical Records Department [address] [place] [id number] H&P Exam - Hospitalist 06/23/23 1715 MR#: [id number] Acct: [id number] Name: J LUIS MADERA Rep #:[id number] : 1950 73 From: Raoul ly MD PCP: Dr. Usman Patel MD Status:AD M [facility] Location: [facility] [id number] HPI - General General Date of Admission: 06/23/23 HPI Narrative J LUIS MADERA, is a 73 M who presents to the hospital with dizziness and difficulty ambulating with weakness in his knees. He denies any focal weakness. Physician was concerned for possible posterior stroke though his NIH is 0. He has had this happen before where he is normally he is able to sleep for a day and then it resolves. He has no nystagmus and does not have any dizziness with sitting upright but he does have dizziness with standing and family, who has left prior to my evaluation, told the ED physician that they cannot take him home given the amount assistance needed with ambulation. Orthostatic vital signs were obtained in the ER which were negative, and CT brain was unremarkable. He does have a chronic contracture of his right upper extremity secondary to cerebral palsy. He denies any numbness or tingling in any of his extremities or any change in his baseline neurological functioning. [facility] Medical History (Updated 06/23/23 @ 16:[address] Ethan Martinez DO) COPD with exacerbation DVT of proximal lower limb History of cerebral palsy History of seizures Post-nasal drip Suspected chronic obstructive pulmonary disease based on initial evaluation Home Medications carbamazepine 200 mg tablet 200 mg PO TID seizures 08/29/17 [History Last Taken 08/29/17 11:30] levetiracetam 500 mg tablet 500 mg PO BID seizures 08/29/17 [History Last Taken 08/29/17 11:30] albuterol sulfate 90 mcg/actuation aerosol inhaler 2 puff inhalation Q4H PRN PRNwheezing/shortness of breath ##1 09/01/17 [Rx Last Taken Unknown] budesonide-formoterol HFA 160 mcg-4.5 mcg/actuation aerosol inhaler 10.2 gm IH BID ##1 09/01/17 [Rx Last Taken Unknown] ipratropium bromide 42 mcg (0.06 %) nasal spray 2 spray NASAL TID ##1 09/01/17 [Rx Last Taken Unknown] prednisone 10 mg tablet 10 mg PO UD #30 tabs 09/01/17 [Rx Last Taken Unknown] doxycycline monohydrate 100 mg capsule 100 mg PO BID #20 caps 10/19/18 [Rx Last Taken Unknown] prednisone 20 mg tablet 60 mg (3 x 20 mg) PO DAILY #15 tabs 10/19/18 [Rx Last Taken Unknown] fluticasone 500 mcg-salmeterol 50 mcg/dose blistr powdr for inhalation 1 inh inhalation DAILY 06/23/23 [History Last Taken Unknown] levothyroxine 100 mcg tablet 100 mcg PO DAILY 06/23/23 [History Last Taken Unknown] Allergy/AdvReac Type Severity Reaction Status Date / Time No Known Allergies Allergy Verified 06/23/23 13:14 Family History (Updated 06/23/23 @ 17:[address] Raoul Oliver MD) Other Heart disease Surgical History (Updated 06/23/23 @ 17:[address] Raoul Oliver MD) History of tonsillectomy Social History Smoking Status: Former smoker second hand exposure: No alcohol intake: never substance use type: does not use caffeine: Yes Type: coffee Number of servings: 2 and tea what type of physical activity do you participate in: none ROS Constitutional Constitutional: Denies chills, fatigue, fever(s) or malaise Eyes Eyes: Denies blurry vision ENT HEENT: Denies headache(s) or nasal discharge Cardiovascular Cardiovascular: Denies chest pain, dyspnea on exertion or syncope Respiratory/Chest Respiratory/Chest: Denies cough, shortness of breath at rest or shortness of breath with exertion Gastrointestinal Gastrointestinal: Denies constipation, diarrhea, nausea or vomiting Genitourinary Genitourinary: Denies dysuria Neurologic Neurologic: Reports dizziness; Denies focal weakness, numbness, syncope or tremor(s) Psychiatric Psychiatric: Denies anxiety or depression Vital Signs Vital Signs Vital Signs: 06/23/23 13:14 06/23/23 15:37 06/23/23 16:27 Temperature 97.4 F L Temperature Source Oral Pulse Rate 82 74 Pulse Rate [Lying] 74 Pulse Rate [Sitting (for 1 minute prior to obtaining)] 77 Pulse Rate [Standing (for 1 minute prior to obtaining)] 80 Respiratory Rate 16 15 Blood Pressure 124/65 H 128/78 H Blood Pressure [Lying] 136/74 H Blood Pressure [Sitting (for 1 minute prior to obtaining)] 125/80 H Blood Pressure [Standing (for 1 minute prior to obtaining)] 130/80 H Blood Pressure Mean 84 94 Blood Pressure Mean [Lying] 94 Blood Pressure Mean [Sitting (for 1 minute prior to obtaining)] 95 Blood Pressure Mean [Standing (for 1 minute prior to obtaining)] 96 Pulse Ox 98 94 Oxygen Delivery Method Room Air Weight Weight: 204 lb 9.423 oz Body Mass Index (BMI) 34.0 Physical Exam Narrative General: Alert, Oriented x3, Cooperative, No apparent distress HEENT: Atraumatic, PERRLA, EOMI, Normocephalic, no nystagmus elicited either horizontal or vertical Oral: Moist Mucosa Neck: Supple, No JVD Lungs: Diminished, Normal air movement, No rhonchi, No wheeze, No rales Cardiovascular: Regular rate, Regular Rhythm, Normal S1, Normal S2, No murmurs Abdomen: Soft, Non Tender, Non-Distended, No Hepato-splenomegaly Extremities: No edema, Capillary Refill Less than 3 Seconds Skin: No rashes, No breakdown Musculoskeletal: No Tenderness to Palpation of Joints or Extremities Neurological: Cranial nerve and motor exam is at baseline, Sensory exam intact to light touch and pain Psych/Mental Status: Normal Affect, Appropriate Results Lab / Micro Data 06/23/23 14:20 06/23/23 14:20 Labs: Laboratory Results - last 24 hr 06/23/23 14:20: WBC 9.3, RBC 3.81 L, Hgb 12.3 L, Hct 37.3 L, MCV 97.9 H, MCH 32.3 H, MCHC 33.0, RDW Std Deviation 46.9 H, RDW Coeff of Julius 13.2, Plt Count 277, MPV 9.9, Immature Gran % (Auto) 0.900, Neut % (Auto) 71.2 H, Lymph % (Auto)16.1 L, Cocke % (Auto) 8.6, Eos % (Auto) 2.3, Baso % (Auto) 0.9, Absolute Neuts (auto) 6.7, Absolute Lymphs (auto) 1.50, Nucleated RBC % 0, Sodium 139, Potassium 3.8, Chloride 109 H, Carbon Dioxide 27.0, Anion Gap 3 L, BUN 12, Creatinine 1.26, Estim Creat Clear Calc 45.42, Est GFR (MDRD) Af Amer 72, Est GFR (MDRD) Non-Af 60, BUN/Creatinine Ratio 9.5 L, Glucose 108 H, Calcium 8.4 L, Troponin I High Sens 6 06/23/23 15:19: Urine Color Yellow, Urine Clarity Clear, Urine pH 6.0, Ur Specific [place] 1.015, Urine Protein 15 H, Urine Glucose (UA) 100 H, Urine Ketones Negative, Urine Occult Blood Negative, Urine Nitrite Negative, Urine Bilirubin Negative, Urine Urobilinogen Normal, Ur Leukocyte Esterase Negative, Urine RBC 0 SEEN, Urine WBC 0 SEEN, Ur Squamous Epith Cells 0-5 SEEN, Urine Bacteria 0 SEEN, Urine Mucus 0 SEEN Imagaing Radiology Impression Brain CT 06/23/23 14:09 IMPRESSION: Chronic involutional changes of the brain. Stable examination. Electronically Signed: Vj Fisher MD at 14:57 EST , Assessment & Plan Assessment/Plan (1) Dizziness: (2) Generalized weakness: PLAN: Plan 1. Generalized weakness and dizziness unclear etiology ? She says it has had this before but the history does appear to be vertiginous ? Will continue with meclizine ? We will obtain an MRI this evening if possible ? Will have him evaluated by PT/OT secondary to him feeling that his knees are weak, no signs of infection, no respiratory difficulty and UA is unremarkable, he is afebrile without a leukocytosis ? CT of the brain does show previous encephalomalacia that has remained unchanged ? This neurological history is complicated by the fact that he has cerebral palsy with a chronically contracted right upper extremity 2. COPD ? Not in exacerbation ? Continue with his home inhalers 3. Seizure disorder ? Stable ? Continue with Keppra 4. Hypothyroidism ? We will check a TSH as there is not 1 in our system ? Continue with Synthroid DVT: Heparin 75 minutes was spent on direct patient care, including documentation as well as chart review and collaboration with colleagues Charges/Coding Visit Charges Inpatient E&M: 23594 Init Hosp L3 06/23/231856 <Electronically signed by Raoul Oliver MD> Cosigner Signature (if applicable): CC: Dr. Usman Patel MD; Dr. Raoul Oliver MD~ Signed [facility] Work Phone: 1(944) 829-276211-16-2023 Miscellaneous Notes* Telephone Encounter - Renee Quintanilla RN - 06/01/2023 5:10 PM EST Spoke with patient. Given message from provider's office. Reminded of fasting lab orders. He says he will try to come in on Tuesday 06/05. Renee Quintanilla RN * Telephone Encounter - Norma Rogers Ma - 06/01/2023 4:43 PM EST Message left for pt to call back. Norma Rogers MA * Telephone Encounter - Usman Patel MD - 06/01/2023 3:06 PM EST OK to refill as ordered Needs to complete labs as ordered by Shayna 05/17 Usman Patel MD * Telephone Encounter - Tyra Frazier LPN - 06/01/2023 2:35 PM EST Patient has been identified by name and date of : Patient phones for refill(s): Requested Prescriptions Pending Prescriptions Disp Refills carBAMazepine (TEGRETOL) 200 mg tablet 270 tablet 3 Sig: one tablet every AM, and 2 every evening fluticasone-salmeterol (ADVAIR DISKUS) 500-50 mcg/dose dsdv 3 Each 3 Sig: Inhale 1 Puff as instructed two times a day. levothyroxine (LEVOXYL) 100 mcg tablet 90 tablet 1 Sig: Take 1 tablet by mouth once daily. Take on empty stomach. For Thyroid levETIRAcetam (KEPPRA) 500 mg tablet 180 tablet 3 Sig: Take 1 tablet by mouth two times a day. Date of last office visit in primary care: 05/17/2023 Date of next office visit in primary care: 11/16/2023 Last 2 Encounter Wt Readings: Date: Wt: 05/17/2023 90.3 kg (199 lb) 11/14/2022 92.8 kg (204 lb 8 oz) Previous labs/tests for medication: Thyroid: TSH Date Value 05/17/2022 7.920 mIU/L 03/03/2020 2.050 uU/mL Please advise. Thank you. Tyra Frazier LPN. [facility] Instructions* Patient Instructions* Shayna Frias APRN.GERA - 05/17/2023 2:16 PM EDT Get fasting labs done, no food 10 hours prior, water and black coffee are okay Get flu vaccine next week when you are feeling better Continue medications as prescribed Follow up in 6 months or sooner as needed [facility] History of Present illness Narrative* Shayna Frias APRN.GERA - 05/17/2023 2:00 PM EDT This is a 73 year old male who presents today with: Patient presents with: 6 Month Exam HISTORY OF PRESENT ILLNESS: J Luis Madera is a 73 year old male. Patient presents with: 6 Month Exam 6 month follow up Smoked for 42 years, quit in 2007. Has had falls in the past, uses a cane as needed. Admits to balance issues at times. Denies any bowel, Gi, or urinary issues. No chest pains, dizziness, or SOB. Has noticed some memory issues off and on. States it takes a while to recall people's names. Epilepsy: Doing well with current regimen of Tegretol 200 mg 1 pill AM, 2 pills PM and Keppra 500 mg BID. Has not seen a neurologist "In a while" has not had a seizure in over a year Thyroid: Dosage was increased to Levoxyl 100 mcg daily, however pt has been getting rx through mailorder and he has been getting 88 mcg sent to him. Looks like his increased dosage was sent to [facility] of the mail order so he has not been taking the 100 mcg daily. No missed dosages. Patient is still taking 88 mcg Levoxyl. COPD: Had spirometry testing done. Doing well on Advair Diskus BID and Albuterol inhaler prn. Mostly uses the Albuterol if he needs it when he goes up and down stairs a lot. He states he has a nebulizer machine to uses prn. He feels he is ok if he doesn't have to climb a lot of stairs. His cough seems to have improved some. He is going to have another CT done to check on lung nodule. Vaccines: Pt thinks he might have had URI last week but is requesting flu shot, discussed with patient waiting a week until he is feeling better. PAST MEDICAL HISTORY: PAST MEDICAL HISTORY Diagnosis Date ASA CLASS III 05/10/2002 Benign neoplasm of colon Cerebral palsy (HCC) 06/27/2014 COPD with chronic bronchitis (HCC) 12/02/2016 Debility Diarrhea Hypoxia 2018 Infantile cerebral palsy, unspecified Other convulsions Partial small bowel obstruction (HCC) 06/27/2014 Peroneal DVT (deep venous thrombosis) (HCC) 09/05/2013 Right spastic hemiparesis (HCC) 06/27/2014 Screening for malignant neoplasm of colon 02/01/2016 Seasonal allergic rhinitis Spring through . Seizures (HCC) Small bowel obstruction (HCC) Suspected chronic obstructive pulmonary disease based on initial evaluation (HCC) 2017 PAST SURGICAL HISTORY Procedure Laterality Date COLONOSCOPY FLX DX W/COLLJ SPEC WHEN PFRMD 02/01/2016 Repeat 01/2026 COLSC FLX W/RMVL OF TUMOR POLYP LESION SNARE TQ 02/05/10 COLSC FLX W/RMVL OF TUMOR POLYP LESION SNARE TQ 04/02/12 CRANIECTOMY/CRANIOTOMY EXPL SUPRATENTORIAL 1980 Craniotomy LAPAROSCOPY COLECTOMY PARTIAL W/ANASTOMOSIS 03-17-10 PAST SURGICAL HISTORY OF Mid-60s Rt. hand & Rt foot surgery to correct defect ALLERGIES Seasonal Allergies MEDICATIONS Current Outpatient Medications Medication Sig levothyroxine (LEVOXYL) 100 mcg tablet Take 1 tablet by mouth once daily. Take on empty stomach. For Thyroid fluticasone-salmeterol (ADVAIR DISKUS) 500-50 mcg/dose dsdv Inhale 1 Puff as instructed twice daily. carBAMazepine (TEGRETOL) 200 mg tablet one tablet every AM, and 2 every evening levETIRAcetam (KEPPRA) 500 mg tablet Take 1 tablet by mouth twice daily. No current facility-administered medications for this visit. FAMILY HISTORY Problem Relation Age of Onset Hypertension Father Breast Cancer Mother Allergies Mother Hay fever. None Sister Asthma Paternal Grandmother Social History Tobacco Use Smoking status: Former Packs/day: 1.50 Years: 40.00 Additional pack years: 0.00 Total pack years: 60.00 Types: Cigarettes Start date: 1968 Quit date: 05/09/2007 Years since quittin.0 Smokeless tobacco: Never Tobacco comments: Father smoked in childhood home. Prior roomate smoked. Substance Use Topics Alcohol use: Yes Comment: Very occasionally. Drug use: No REVIEW OF SYSTEMS GENERAL: No weight loss, malaise or fevers/chills HEENT: Negative for frequent or significant headaches, No changes in hearing or vision. NECK: Negative for lumps, goiter, pain and significant neck swelling RESPIRATORY: Negative for cough, hemoptysis, wheezing, dyspnea or shortness of breath CARDIOVASCULAR: Negative for chest pain, leg swelling, orthopnea, or palpitations GI: No nausea, vomiting, or diarrhea/constipation. No hematochezia/melena. No heartburn or reflux symptoms. : No history of dysuria, frequency or incontinence MUSCULOSKELETAL: Negative for joint pain or swelling. SKIN: Negative for lesions, rash, and itching ENDOCRINE: Negative for cold or heat intolerance, polyuria, polydipsia and goiter NEURO: No history of headaches, syncope, paralysis, seizures or tremors MOOD: Negative for depression, anxiety, or suicidal ideation. EXAM: BP 110/76 Pulse 88 Resp 16 Wt 90.3 kg (199 lb) SpO2 98% BMI 35.25 kg/m PHYSICAL EXAM: General Appearance: Well appearing, alert, in no acute distress, well-hydrated, well nourished.. Skin: Skin color, texture, turgor normal, no suspicious rashes or lesions. Head: Normocephalic, no masses, lesions, tenderness or abnormalities. Eyes: Anicteric sclera. Pupils are equally round and reactive to light. Extraocular movements are intact. . Lungs: Lungs clear to auscultation. No wheezing, rhonchi, rales.. Heart: RRR without murmur, gallop, or rubs. No ectopy. Extremities: No deformities, edema, skin discoloration, clubbing or cyanosis. Good capillary refill. . Peripheral Pulses: Normal. Neurologic: Gait normal. Reflexes normal and symmetric. Sensation grossly intact.. ASSESSMENT/PLAN: 1. Generalized convulsive epilepsy (HCC) - ICD9: 345.10, ICD10: G40.309 (primary diagnosis) - Stable, continue current medication - Get labs completed - LEVETIRACETAM - CBC + DIFF - COMP METABOLIC PANEL - CARBAMAZEPI/TEGRETOL 2. Imbalance - ICD9: 781.2, ICD10: R26.89 - Stable, continue to use cane. 3. COPD with chronic bronchitis - ICD9: 491.20, ICD10: J44.89 - Stable, continue to take medications as prescribed 4. Hypothyroidism, acquired - ICD9: 244.9, ICD10: E03.9 - Instructed patient on importance of taking on an empty stomach either first thing in the morning or at bedtime. - TSH BLD 5. Cerebral palsy, unspecified type (HCC) - ICD9: 343.9, ICD10: G80.9 - Stable 6. Prostate cancer screening - ICD9: V76.44, ICD10: Z12.5 - PSA/PROSTSPECAG SCRN 7. Dyslipidemia, goal LDL below 100 - ICD9: 272.4, ICD10: E78.5 - Control undetermined, due for labs - Counseled on healthy diet and regular exercise - LIPID PANEL BASIC Follow up in 6 months or sooner as needed Discussed treatment plan and patient voices understanding. Patient's questions answered appropriately. Medications and potential side effects were discussed and patient voices understanding. Shayna Frias APRN.MONUMENT ERECTOR documented in this encounterCincinnati [facility]08-14-2023 Miscellaneous Notes* Telephone Encounter - Renee Quintanilla RN - 02/27/2023 5:27 PM EDT Spoke with patient. Given message from provider's office. Patient verbalizes understanding. Renee Quintanilla RN * Telephone Encounter - Norma Rogers Ma - 02/27/2023 4:53 PM EDT Message left for pt to call back Norma Rogers Ma * Telephone Encounter - Usman Patel MD - 02/27/2023 3:55 PM EDT Noted; I would defer the question about the brace to Ortho Usman Patel MD * Telephone Encounter - Julieta Mckay Ma - 02/27/2023 10:40 AM EDT Call to pt. Pt reports that he fell on Monday02/24/23 at [place] when he was getting up to go the restroom. Notes he made a turn to quickly and lost his balance. States that his right foot buckled on him, causing him to go sideways causing him to fall on his bad foot. He broke a couple of bones in his ankle of his already bad food. Was seen at [facility] ED, this is where they gave him the brace. Pt notes that they did tell him to f/u with Ortho in 5-7 days but is unable to recall who it was they told him to see. Reviewed ED d/c paperwork and pt was referred to see Dr. Raoul Cardenas, phone number given to pt to contact there office. Pt states that he will contact them as soon as he can. He was given a brace to put on that ankle, but notes that it's hard to velcro with his good hand. It does help with the pain. Asking if there's a different brace that could be used that's easier for him to apply himself. He will also be calling Ortho to talk to them as well. ED X-ray: IMPRESSION: Nondisplaced transverse fracture at the base of the fifth metatarsal. Soft tissue swelling. Soft tissue calcifications. Electronically Signed: Vj Fisher MD at 14:54 EDT RAD/Foot min 3 Views IMPRESSION: Nondisplaced transverse fracture at the base of the fifth metatarsal with overlying soft tissue swelling. Electronically Signed: Vj Fisher MD at 14:59 EDT * Telephone Encounter - Kimmy Webb - 02/27/2023 9:44 AM EDT Patient fell 02/24 at the [facility], he hurt his right foot. They advised him to let Dr. Patel know. Patient also has some questions regarding the brace they gave him. Please review and advise. Kimmy Webb documented in this encounterCincinnati [facility]05-11-2023 History of Present illness Narrative* Terri Tomas RT(R) - 11/24/2022 3:00 PM EDT Radiology Service Progress Note PATIENT NAME: J Luis Madera DATE OF SERVICE: November 24, 2022 TIME: 4:07 PM PATIENT IDENTITY VERIFICATION COMPLETED USING TWO (2) IDENTIFIERS: Name and Date of confirmedby patient verbally. FALL SCREENING: Has the patient had 2 falls in the last year or 1 fall with injury or currently using an Ambulatory Assistive Device (Walker, Cane, Wheelchair, Crutches, etc.)? No PATIENT GENDER DATA: Male PATIENT RELEVANT IMPLANT DATA REVIEWED: Yes RADIOLOGY DEPARTMENT: CT; Exam(s) Completed: Chest PERIPHERAL IV DATA: Not applicable SIGNED BY: RT Michael(R) November 24, 2022 4:07 PM documented in this encounterCincinnati [facility]05-02-2023 History of Present illness Narrative* Brenda Yusuf RDMS - 11/15/2022 1:45 PM EDT Radiology Service Progress Note PATIENT NAME: J Luis Madera DATE OF SERVICE: November 15, 2022 TIME: 2:02 PM PATIENT IDENTITY VERIFICATION COMPLETED USING TWO (2) IDENTIFIERS: Name and Date of confirmedby patient verbally. FALL SCREENING: Has the patient had 2 falls in the last year or 1 fall with injury or currently using an Ambulatory Assistive Device (Walker, Cane, Wheelchair, Crutches, etc.)? Yes, Patient High Riskfor Falls What interventions were put in place to prevent falls during this visit? Instructed Patient to Callfor Help if Needed, Offered Assistance with Transfers/Clothing, Instructed Patient to Remain Seated(Not on Exam Table) Until Exam, and Increased Observations by Caregivers PATIENT GENDER DATA: Male PATIENT RELEVANT IMPLANT DATA REVIEWED: Not Applicable RADIOLOGY DEPARTMENT: Ultrasound PERIPHERAL IV DATA: Not applicable SIGNED BY: Brenda Yusuf RDMS RVT November 15, 2022 2:02 PM documented in this encounterCincinnati [facility]03-06-2023 Miscellaneous Notes* Telephone Encounter - Jolly Laguerre LPN - 09/19/2022 10:00 AM EST TC to pt. LM to call office, ask for triage nurse to get results. Jolly Laguerre LPN * Telephone Encounter - Shayna Frias APRN.CNP - 09/19/2022 9:39 AM EST Can you please call the patient and let him know that I reviewed his pulmonary test results. Spirometry shows some restriction but no worsening obstruction. Nitric oxide shows some moderate underlying inflammation. Can you please ask how his breathing has been doing? I would still encourage him to schedule that repeat chest CT. If breathing/cough has not improved we can consider making some inhaler changes or refer him over to pulmonology. Shayna Frias APRN.GERA documented in this encounterCincinnati [facility] Center02-28-2023 Procedure note* Delilah Wilhelm, SHABNAM - 09/13/2022 1:23 PM ESTAssociated Order(s): NITRIC OXIDE, EXHALED RESPIRATORY THERAPY ORAL EXHALED NITRIC OXIDE SERVICE DATE: 09/13/2022 SERVICE TIME: 1:23 PM Oral Exhaled Nitric Oxide measurement: 22.0 (ppb) Normal: Adult 5-20 ppb, pediatric (<12 years) 5-15 ppb High Normal / Increased: Adult 20-35 ppb, pediatric (<12 years) 15-25 ppb Moderately raised exhaled Nitric Oxide may indicate underlying inflammation, but note that: Cold and influenza can raise exhaled Nitric Oxide and some patients have higher baseline exhaled Nitric Oxide levels than others. High: Adult >35 ppb, pediatric (<12 years) >25 ppb Indicative of ongoing eosinophilic inflammation. Symptomatic patient likely to respond to steroids. Possible causes (if already on steroids): Poor compliance, recent allergen exposure, steroid dose inadequate, and steroid resistance. Note that not all patients with high exhaled nitric oxide levels display symptoms. Oral Exhaled Nitric Oxide measurement (Previous Encounters) Test Date Oral Exhaled Nitric Oxide (ppb) 09/13/2022 22.0 NAME: CHELSY Tvoar PATIENT NAME: J Luis Madera DATE: September 13, 2022 TIME: 1:23 PM documented in this encounterCincinnati [facility] Center02-28-2023 History of Present illness Narrative* CHELSY Tovar - 09/13/2022 1:21 PM EST PULM FUNCTION SMARTBLOCK: Provider: Shayna Frias APRN.MONUMENT ERECTOR Assisting Tech: CHELSY Tovar Spirometry w/BD: 1 LV - Box: 1 Exhaled Nitric Oxide: 1 documented in this encounterCincinnati [facility] Center02-23-2023 History of Present illness Narrative* Shayna Frias APRN.MONUMENT ERECTOR - 09/08/2022 2:20 PM EST This is a 72 year old male who presents today with: Patient presents with: Acute Visit: valentina/debbie HISTORY OF PRESENT ILLNESS: J Luis Madera is a 72 year old male. Patient presents with: Acute Visit: valentina/debbie Here in the office for on going cough. Was seen in office on 08/24/2022, diagnosed with sinobronchitis, started on doxycycline and given albuterol as needed. COVID/flu test was negative. Sinus sympotms improved but having lingering dry cough. Cough is intermittent but worse in the evenings. Denies any night time wakening with cough. Has had ongoing SOB when going up and down the stairs. Albuterolinhaler has been helpful. Denies any chest pain, palpitations, or edema. Refers that SOB improves with rest. Had abnormal CT scan in November 2021, recommend repeat imaging this November. Smoking (former) , History of COPD, using Advair daily. CT Chest: November 2021; IMPRESSION: 1. 3 mm left upper lobe pulmonary nodule. 2. Sequela of granulomatous exposure. PAST MEDICAL HISTORY: PAST MEDICAL HISTORY Diagnosis Date ASA CLASS III 05/10/2002 Benign neoplasm of colon Cerebral palsy (HCC) 06/27/2014 COPD with chronic bronchitis (HCC) 12/02/2016 Debility Diarrhea Hypoxia 2018 Infantile cerebral palsy, unspecified Other convulsions Partial small bowel obstruction (HCC) 06/27/2014 Peroneal DVT (deep venous thrombosis) (HCC) 09/05/2013 Right spastic hemiparesis (HCC) 06/27/2014 Screening for malignant neoplasm of colon 02/01/2016 Seasonal allergic rhinitis Spring through . Seizures (HCC) Small bowel obstruction (HCC) Suspected chronic obstructive pulmonary disease based on initial evaluation (HCC) 2017 PAST SURGICAL HISTORY Procedure Laterality Date COLONOSCOPY FLX DX W/COLLJ SPEC WHEN PFRMD 02/01/2016 Repeat 01/2026 COLSC FLX W/RMVL OF TUMOR POLYP LESION SNARE TQ 02/05/10 COLSC FLX W/RMVL OF TUMOR POLYP LESION SNARE TQ 04/02/12 CRANIECTOMY/CRANIOTOMY EXPL SUPRATENTORIAL 1980 Craniotomy LAPAROSCOPY COLECTOMY PARTIAL W/ANASTOMOSIS 03-17-10 PAST SURGICAL HISTORY OF Mid-60's Rt. hand & Rt foot surgery to correct defect ALLERGIES Seasonal Allergies MEDICATIONS Current Outpatient Medications Medication Sig albuterol HFA (VENTOLIN HFA) 90 mcg/actuation inhaler Inhale 2 Puffs as instructed every 4 hours asneeded for wheezing/shortness of breath for up to 10 days. levothyroxine (LEVOXYL) 100 mcg tablet Take 1 tablet by mouth once daily. Take on empty stomach. For Thyroid fluticasone-salmeterol (ADVAIR DISKUS) 500-50 mcg/dose dsdv Inhale 1 Puff as instructed twice daily. carBAMazepine (TEGRETOL) 200 mg tablet one tablet every AM, and 2 every evening levETIRAcetam (KEPPRA) 500 mg tablet Take 1 tablet by mouth twice daily. No current facility-administered medications for this visit. FAMILY HISTORY Problem Relation Age of Onset Hypertension Father Breast Cancer Mother Allergies Mother Hay fever. None Sister Asthma Paternal Grandmother Social History Tobacco Use Smoking status: Former Packs/day: 1.50 Years: 40.00 Pack years: 60.00 Types: Cigarettes Start date: 1968 Quit date: 05/09/2007 Years since quittin.3 Smokeless tobacco: Never Tobacco comments: Father smoked in childhood home. Prior roomate smoked. Substance Use Topics Alcohol use: Yes Comment: Very occasionally. Drug use: No REVIEW OF SYSTEMS GENERAL: No weight loss, malaise or fevers/chills HEENT: Negative for frequent or significant headaches, No changes in hearing or vision. NECK: Negative for lumps, goiter, pain and significant neck swelling RESPIRATORY: + Cough/SOB CARDIOVASCULAR: Negative for chest pain, leg swelling, orthopnea, or palpitations GI: No nausea, vomiting, or diarrhea/constipation. No hematochezia/melena. No heartburn or reflux symptoms. : No history of dysuria, frequency or incontinence MUSCULOSKELETAL: Negative for joint pain or swelling. SKIN: Negative for lesions, rash, and itching ENDOCRINE: Negative for cold or heat intolerance, polyuria, polydipsia and goiter NEURO: No history of headaches, syncope, paralysis, seizures or tremors MOOD: Negative for depression, anxiety, or suicidal ideation. EXAM: BP 126/74 Pulse 104 Temp 36.7 C (98 F) (Left Tympanic) Resp 16 Wt 93.4 kg (206 lb) SpO2 96% BMI 35.92 kg/m PHYSICAL EXAM: General Appearance: Well appearing, alert, in no acute distress, well-hydrated, well nourished. Skin: Skin color, texture, turgor normal, no suspicious rashes or lesions. Head: Normocephalic, no masses, lesions, tenderness or abnormalities. Eyes: Anicteric sclera. Extraocular movements are intact. Lungs: Lungs clear to auscultation. No wheezing, rhonchi, rales. Heart: RRR without murmur, gallop, or rubs. No ectopy. Extremities: No deformities, edema, skin discoloration, clubbing or cyanosis. Good capillary refill. Peripheral Pulses: Normal, Capillary refill <2secs, strong peripheral pulses, Pulses palpable. Neurologic: Gait normal. Reflexes normal and symmetric. Sensation grossly intact. ASSESSMENT/PLAN: 1. Cough, unspecified type - ICD9: 786.2, ICD10: R05.9 (primary diagnosis) - Denied wanting any oral steroids at this time. - Continue current medications as prescribed. 2. SOB (shortness of breath) - ICD9: 786.05, ICD10: R06.02 - Get PFT's completed. - Schedule appointment to have repeat chest CT completed. - Continue with Advair twice daily and albuterol as needed. - ALBUTEROL SULFATE HFA 90 MCG/ACTUATION AEROSOL INHALER - SPIROMETRY - BASELINE AND POST DILATOR - NITRIC OXIDE, EXHALED - LUNG VOLUMES 3. COPD with chronic bronchitis (HCC) - ICD9: 491.20, ICD10: J44.9 - Same plan as #2. Follow up pending test results or sooner as needed. Discussed treatment plan and patient voices understanding. Patient's questions answered appropriately. Medications and potential side effects were discussed and patient voices understanding. Shayna Frias APRN.CNP This note was partially generated using [employer] voice recognition system. Note was reviewed for accuracy. There may be minor misspellings or grammar miscues with [employer] voice recognition. documented in this encounterCincinnati [facility]02-23-2023 Instructions* Patient Instructions* Shayna Frias APRN.CNP - 09/08/2022 2:15 PM EST Schedule Chest CT scan Complete pulmonary tests Continue to take all medication as prescribed. Follow up pending test results or sooner as needed. documented in this encounterCincinnati [facility] Center02-22-2023 Miscellaneous Notes* Telephone Encounter - Salima Teixeira RN - 09/07/2022 4:40 PM EST Insurance was added. Pt was scheduled. * Telephone Encounter - Salima Teixeira RN - 09/07/2022 4:28 PM EST Pt was transferred to scheduling so they could put his insurance information into the computer. A hold was placed on Shayna Frias HUM[employer]OURCES INTERN 220 pm appointment tomorrow for the Pt. Please schedule Pt once insurance info is in. documented in this encounterCincinnati [facility] Center02-09-2023 Miscellaneous Notes* Telephone Encounter - Jolly Laguerre LPN - 08/25/2022 10:30 AM EST TC to pt. LM to call office, ask for triage nurse to get results. Jolly Laguerre LPN * Telephone Encounter - Shayna Frias APRN.CNP - 08/25/2022 10:12 AM EST Can you please call the patient and let him know that his COVID and flu test were negative. He can continue on the doxycycline as prescribed and continue supportive care at home. Please let me know if he has any questions. Thank you. Shayna Frias APRN.CNP documented in this encounterCincinnati [facility] Center02-08-2023 Instructions* Patient Instructions* Shayna Frias APRN.CNP - 08/24/2022 4:26 PM EST Start Doxycycline, take as prescribed. May use albuterol inhaler as needed for shortness of breath or wheezing. May continue to use over the counter cold and cough medications as needed. Stay well hydrated. Flu/Covid result should be back by tomorrow. Follow up as needed. Stretch legs when possible to prevent muscle stiffness. documented in this encounterCincinnati [facility] Center02-08-2023 History of Present illness Narrative* Shayna Frias APRN.CNP - 08/24/2022 4:00 PM EST This is a 72 year old male who presents today with: Patient presents with: Acute Visit: upper repiratory HISTORY OF PRESENT ILLNESS: J Luis Madera is a 72 year old male. Patient presents with: Acute Visit: upper repiratory Here in the office for URI symptoms. Started Monday morning. Cough which is non-productive. Mild SOB and wheezing with activity, no difficulty breathing, No fever or chills. Refers he has been having tight muscles in bilateral legs. Legs feel better today. Has been using OTC cold and cough medication. PAST MEDICAL HISTORY: PAST MEDICAL HISTORY Diagnosis Date ASA CLASS III 05/10/2002 Benign neoplasm of colon Cerebral palsy (HCC) 06/27/2014 COPD with chronic bronchitis ([facility]) 12/02/2016 Debility Diarrhea Hypoxia 2018 Infantile cerebral palsy, unspecified Other convulsions Partial small bowel obstruction (HCC) 06/27/2014 Peroneal DVT (deep venous thrombosis) ([facility]) 09/05/2013 Right spastic hemiparesis ([facility]) 06/27/2014 Screening for malignant neoplasm of colon 02/01/2016 Seasonal allergic rhinitis Spring through . Seizures ([facility]) Small bowel obstruction ([facility]) Suspected chronic obstructive pulmonary disease based on initial evaluation ([facility]) 2017 PAST SURGICAL HISTORY Procedure Laterality Date COLONOSCOPY FLX DX W/COLLJ SPEC WHEN PFRMD 02/01/2016 Repeat 01/2026 COLSC FLX W/RMVL OF TUMOR POLYP LESION SNARE TQ 02/05/10 COLSC FLX W/RMVL OF TUMOR POLYP LESION SNARE TQ 04/02/12 CRANIECTOMY/CRANIOTOMY EXPL SUPRATENTORIAL 1980 Craniotomy LAPAROSCOPY COLECTOMY PARTIAL W/ANASTOMOSIS 03-17-10 PAST SURGICAL HISTORY OF Mid-60's Rt. hand & Rt foot surgery to correct defect ALLERGIES Seasonal Allergies MEDICATIONS Current Outpatient Medications Medication Sig levothyroxine (LEVOXYL) 100 mcg tablet Take 1 tablet by mouth once daily. Take on empty stomach. For Thyroid fluticasone-salmeterol (ADVAIR DISKUS) 500-50 mcg/dose dsdv Inhale 1 Puff as instructed twice daily. carBAMazepine (TEGRETOL) 200 mg tablet one tablet every AM, and 2 every evening levETIRAcetam (KEPPRA) 500 mg tablet Take 1 tablet by mouth twice daily. No current facility-administered medications for this visit. FAMILY HISTORY Problem Relation Age of Onset Hypertension Father Breast Cancer Mother Allergies Mother Hay fever. None Sister Asthma Paternal Grandmother Social History Tobacco Use Smoking status: Former Packs/day: 1.50 Years: 40.00 Pack years: 60.00 Types: Cigarettes Start date: 1968 Quit date: 05/09/2007 Years since quittin.3 Smokeless tobacco: Never Tobacco comments: Father smoked in childhood home. Prior roomate smoked. Substance Use Topics Alcohol use: Yes Comment: Very occasionally. Drug use: No REVIEW OF SYSTEMS GENERAL: No weight loss, malaise or fevers/chills HEENT: Negative for frequent or significant headaches, No changes in hearing or vision. NECK: Negative for lumps, goiter, pain and significant neck swelling RESPIRATORY: + Cough CARDIOVASCULAR: Negative for chest pain, leg swelling, orthopnea, or palpitations GI: No nausea, vomiting, or diarrhea/constipation. No hematochezia/melena. No heartburn or reflux symptoms. : No history of dysuria, frequency or incontinence MUSCULOSKELETAL: Negative for joint pain or swelling. + Bilateral leg pain SKIN: Negative for lesions, rash, and itching ENDOCRINE: Negative for cold or heat intolerance, polyuria, polydipsia and goiter NEURO: No history of headaches, syncope, paralysis, seizures or tremors MOOD: Negative for depression, anxiety, or suicidal ideation. EXAM: BP 138/90 Pulse 99 Temp 36.7 C (98.1 F) Resp 16 Wt 90.7 kg (200 lb) SpO2 97% BMI 34.87 kg/m PHYSICAL EXAM: General Appearance: Well appearing, alert, in no acute distress, well-hydrated, well nourished. Skin: Skin color, texture, turgor normal, no suspicious rashes or lesions. Head: Normocephalic, no masses, lesions, tenderness or abnormalities. Eyes: Anicteric sclera. Pupils are equally round and reactive to light. Extraocular movements are intact. Nose/Sinuses: + Maxillary tenderness, green sinus discharge noted. Neck: Supple, no adenopathy; thyroid symmetric, normal size, no bruits. Lungs: + Wheezing Noted Heart: RRR without murmur, gallop, or rubs. No ectopy. Extremities: No deformities, edema, skin discoloration, clubbing or cyanosis. Good capillary refill. Musculoskeletal: No joint swelling, deformity, or tenderness. Peripheral Pulses: Normal, Capillary refill <2secs, strong peripheral pulses, Pulses palpable. Neurologic: Gait normal. Reflexes normal and symmetric. Sensation grossly intact.. ASSESSMENT/PLAN: 1. Sinobronchitis - ICD9: 473.9, 490, ICD10: J32.9, J40 - Will begin treatment with Doxycycline - May use albuterol inhaler as needed for shortness of breath or wheezing. - May continue to use [id number] cold and cough medications as needed. - Supportive care with plenty of fluids, rest, and analgesia prn. - COVID WITH FLUA+B, ROUTINE - DOXYCYCLINE HYCLATE 100 MG TABLET - ALBUTEROL SULFATE HFA 90 MCG/ACTUATION AEROSOL INHALER Follow-up pending test results or sooner as needed. Discussed treatment plan and patient voices understanding. Patient's questions answered appropriately. Medications and potential side effects were discussed and patient voices understanding. Shayna Frias APRN.GERA This note was partially generated using [employer] voice recognition system. Note was reviewed for accuracy. There may be minor misspellings or grammar miscues with [employer] voice recognition. documented in this encounterCincinnati [facility] Center12-27-2022 Miscellaneous Notes* Telephone Encounter - Norma Rogers Ma - 07/12/2022 3:02 PM EST faxed * Telephone Encounter - Norma Rogers Ma - 07/12/2022 12:36 PM EST Patient has been identified by name and date of : Yes, Provider Jorge Date 07/12/22 Time 12:36 pm Type of form: plan of care Form received via: [employer] [place] When form is completed, fax form to fax number provided. Form has been forwarded to: Provider's desk. Provider name: Jorge Rogers Ma documented in this encounterCincinnati Va [facility] Center11-25-2022 Miscellaneous Notes* Telephone Encounter - Roger Pfefifer RN - 06/10/2022 3:04 PM EST See 05-24-22 encounter. Patient returned call and given provider's message. 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 Reports there was a week he missed taking the levothyroxine 88 mcg, because he had to wait until his money came. Patient agreeable to return tolab in 2 mths for recheck. documented in this encounterCincinnati Va [facility] Center11-10-2022 Miscellaneous Notes* Telephone Encounter - Norma Rogers Ma - 05/26/2022 9:17 AM EST [employer] message sent to pt, asking them to call back for results. Norma Rogers MA * Telephone Encounter - Kaia Garzon MA - 05/26/2022 8:47 AM EST X2 attempt. Unable to reach patient. Left VM to return call to office. Please read below and advise. Kaia Garzon MA * Telephone Encounter - Kaia Garzon MA - 05/24/2022 2:32 PM EST Unable to reach patient. Left VM to return call to office. Please read below and advise. Kaia Garzon MA * Telephone Encounter - Fritz Granados APRN.MONUMENT ERECTOR - 05/24/2022 2:19 PM EST Please let the patient know that his PSA was normal. His TSH was elevated at over 7. Dr. Patel's note shows that he hasn't missed any doses. Recommendation is to increase dose of levothyroxine to 100 mcg and repeat TSH in 2 months. The following approved medication requests have been transmitted electronically. Requested Prescriptions Signed Prescriptions Disp Refills levothyroxine (LEVOXYL) 100 mcg tablet 90 tablet 1 Sig: Take 1 tablet by mouth once daily. Take on empty stomach. For Thyroid Authorizing Provider: FRITZ GRANADOS APRN.MONUMENT ERECTOR [facility] History of Present illness Narrative* Usman Patel MD - 05/17/2022 3:00 PM EDT Chief Complaint Patient presents with: 6 Month Exam Immunizations: Flu vaccination HPI J Luis Madera is a 72 year old male who presents here today for 6 month follow up. Goes to [facility] 3 days/week. He states that the nurse at [place] is working with him on trying to eat better so he can lose weight. His mom is doing well, still getting around well, is 91 years old. No bowel, Gi, or urinary issues. Denies any chest pains, dizziness, or SOB. Thyroid: Taking Levoxyl 88 mcg daily. No missed dosages. COPD: Stable with use of Advair Diskus BID and Albuterol prn. No pulmonary. Epilepsy: Stable on Tegretol 200 mg, 1 pill in AM, 2 pills in PM and Keppra 500 mg BID. Had a fall in November. He uses a cane to get around. He states some days his balance is really good an other days he feels he could fall. Falls Risk Intake: Patient age 65 or over, unsteady, or was advised to use special equipment to aid ambulation (i.e., cane or walker)? Yes Has the patient had two falls in the past year, or one with injury? Yes Does the patient need to use their hands when pushing up from chair, or hold onto furniture when ambulating at home? Yes Is the patient worried about falling? No Please inform patient that answering Yes to one or more of the questions above can increase theirrisk of falling Patient is at greater risk for falls. Falls Instruction: Teaching document below - reviewed and given to patient [facility] - FALLS Prevention Safety Plan Past medical history, appointments, medications, allergies reviewed. Previous Medical History PAST MEDICAL HISTORY Diagnosis Date ASA CLASS III 05/10/2002 Benign neoplasm of colon Cerebral palsy (HCC) 06/27/2014 COPD with chronic bronchitis (HCC) 12/02/2016 Debility Diarrhea Hypoxia 2018 Infantile cerebral palsy, unspecified Other convulsions Partial small bowel obstruction (HCC) 06/27/2014 Peroneal DVT (deep venous thrombosis) (HCC) 09/05/2013 Right spastic hemiparesis (HCC) 06/27/2014 Screening for malignant neoplasm of colon 02/01/2016 Seasonal allergic rhinitis Spring through . Seizures (HCC) Small bowel obstruction (HCC) Suspected chronic obstructive pulmonary disease based on initial evaluation (HCC) 2018 Previous Surgical History PAST SURGICAL HISTORY Procedure Laterality Date COLONOSCOPY FLX DX W/COLLJ SPEC WHEN PFRMD 02/01/2016 Repeat 01/2026 COLSC FLX W/RMVL OF TUMOR POLYP LESION SNARE TQ 02/05/10 COLSC FLX W/RMVL OF TUMOR POLYP LESION SNARE TQ 04/02/12 CRANIECTOMY/CRANIOTOMY EXPL SUPRATENTORIAL 1980 Craniotomy LAPAROSCOPY COLECTOMY PARTIAL W/ANASTOMOSIS 03-17-10 PAST SURGICAL HISTORY OF Mid-60's Rt. hand & Rt foot surgery to correct defect Family History FAMILY HISTORY Problem Relation Age of Onset Hypertension Father Breast Cancer Mother Allergies Mother Hay fever. None Sister Asthma Paternal Grandmother Patient Allergies ALLERGIES Allergen Reactions Seasonal Allergies Other: See Comments Current Medications Current Outpatient Medications on File Prior to Visit Medication Sig fluticasone-salmeterol (ADVAIR DISKUS) 500-50 mcg/dose dsdv Inhale 1 Puff as instructed twice daily. carBAMazepine (TEGRETOL) 200 mg tablet one tablet every AM, and 2 every evening levETIRAcetam (KEPPRA) 500 mg tablet Take 1 tablet by mouth twice daily. levothyroxine (LEVOXYL) 88 mcg tablet Take 1 tablet by mouth once daily. Take on empty stomach. ForThyroid No current facility-administered medications on file prior to visit. Social History Social History Tobacco Use Smoking status: Former Packs/day: 1.50 Years: 40.00 Pack years: 60.00 Types: Cigarettes Start date: 1968 Quit date: 05/09/2007 Years since quittin.0 Smokeless tobacco: Never Tobacco comments: Father smoked in childhood home. Prior roomate smoked. Substance Use Topics Alcohol use: Yes Comment: Very occasionally. Drug use: No EXAM: BP 154/90 Pulse 74 Resp 16 Wt 92.9 kg (204 lb 12.8 oz) BMI 35.71 kg/m General Appearance: Well appearing, alert, in no acute distress, well-hydrated, well nourished. andOverweight. Uses cane due to CP. Lungs: Lungs clear to auscultation. No wheezing, rhonchi, rales.. Heart: RRR without murmur, gallop, or rubs. No ectopy. Health Maintenance List ABDOMINAL AORTIC ANEURYSM SCREENING Never done DTAP,TDAP,TD(1 - Tdap) Never done ALPHA-1 ANTITRYPSIN DEFICIENCY SCREENING Never done SHINGRIX VACCINE(1 of 2) Never done DEPRESSION ASSESSMENT Never done COVID-19 VACCINE(4 - Booster for Moderna series) due on 09/27/2021 INFLUENZA(1) due on 03/17/2022 ANNUAL PCP TEAM CHRONIC DISEASE VISIT due on 11/08/2022 LUNG CANCER SCREENING due on 11/23/2022 DIABETES SCREEN due on 11/08/2024 LIPID SCREEN due on 03/03/2025 COLORECTAL CANCER SCREENING due on 01/31/2026 SPIROMETRY Completed ADVANCE DIRECTIVE DISCUSSION Completed HEPATITIS C SCREENING Completed PNEUMOCOCCAL: 65+ Completed Data reviewed None ASSESSMENT/PLAN: 1. Hypothyroidism, acquired - ICD9: 244.9, ICD10: E03.9 (primary diagnosis) - Instructed patient on importance of taking on an empty stomach either first thing in the morning or at bedtime. Continue current medications.' 2. Need for influenza vaccination - ICD9: V04.81, ICD10: Z23 - INFLUENZA SEASONAL QUADRIVALENT HIGH DOSE AGE 65+ 3. Need for COVID-19 vaccine - ICD9: V04.89, ICD10: Z23 - PFIZER-BIONTECH COVID-19 BIVALENT BOOSTER VACCINE, AGE 12+ YR 4. 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 No neurologist 5. Imbalance - ICD9: 781.2, ICD10: R26.89 Continue with cane 6. COPD with chronic bronchitis (HCC) - ICD9: 491.20, ICD10: J44.9 Continue current medications. 7. Obesity, Class II, BMI 35-39.9 - ICD9: 278.00, ICD10: E66.9 Recommend healthy diet and regular exercise Check TSH and PSA today - last PSA was 2.9 in 2019 - notify of results. Follow up in 6 months with fasting labs prior. I agree with the Chief Complaint, ROS, and Past Histories independently gathered by the clinical sales support assistant and the remaining scribed note accurately describes my personal service to the patient. Medical Decision Making: Problems: Moderate: 2+ stable chronic illnesses Data: Unique test(s) ordered: 3+ Risk: Moderate: Drug management Medical Decision Making Level: 4 - Moderate Usman Patel MD The documentation for this note was completed by Norma Rogers Ma acting as scribe for Usman Patel MD. May 17, 2022 2:44 PM. Norma Rogers Ma documented in this encounterC[facility]05-25-[facility]22 History of Present illness Narrative* Lora Nunes RN - 12/08/2021 1:51 PM EDT [facility] Enrollment Provider Action/FYI: MyChart message introducing [employer] Home Monitoring program sent to pt. Will outreach pt x1-2 days. Patient referred by: [facility] Berenice Contact made with patient: No - Unable to leave message: (Keep encounter open and attempt 2nd outreach in two business days from today). END OUTREACH Lora Nunes RN December 08, 2021 1:53 PM documented in this encounterCincinnati [facility]05-10-2022 History of Present illness Narrative* Terri Victor RT(R) - 11/23/2021 2:20 PM EDT Radiology Service Progress Note PATIENT NAME: J Luis Madera DATE OF SERVICE: November 23, 2021 TIME: 3:23 PM PATIENT IDENTITY VERIFICATION COMPLETED USING TWO (2) IDENTIFIERS: Name and Date of confirmedby patient verbally. FALL SCREENING: Has the patient had 2 falls in the last year or 1 fall with injury or currently using an Ambulatory Assistive Device (Walker, Cane, Wheelchair, Crutches, etc.)? No PATIENT GENDER DATA: Male PATIENT RELEVANT IMPLANT DATA REVIEWED: Not Applicable RADIOLOGY DEPARTMENT: CT; Exam(s) Completed: Chest PERIPHERAL IV DATA: Not applicable SIGNED BY: RT Michael(R) November 23, 2021 3:23 PM documented in this encounterCincinnati [facility]04-29-2022 Miscellaneous Notes* Telephone Encounter - Norma Rogers Ma - 11/12/2021 2:03 PM EDT Pt notified of results via [employer]. Norma Rogers Ma * Telephone Encounter - Usman Patel MD - 11/12/2021 2:01 PM EDT Please notify patient that his blood test results look OK; stay on the same medications and follow up in 6 months as planned Usman Patel MD documented in this encounterCincinnati [facility]01-28-2022 History of Present illness Narrative* Sylvia Gates RT(R) - 08/13/2021 4:30 PM EST Radiology Service Progress Note PATIENT NAME: J Luis Madera DATE OF SERVICE: August 13, 2021 TIME: 4:21 PM PATIENT IDENTITY VERIFICATION COMPLETED USING TWO (2) IDENTIFIERS: Name and Date of confirmedby patient verbally. FALL SCREENING: Has the patient had 2 falls in the last year or 1 fall with injury or currently using an Ambulatory Assistive Device (Walker, Cane, Wheelchair, Crutches, etc.)? No PATIENT GENDER DATA: Male PATIENT RELEVANT IMPLANT DATA REVIEWED: Not Applicable RADIOLOGY DEPARTMENT: General X-ray: Exam(s) Completed: Chest X-Ray PERIPHERAL IV DATA: Not applicable SIGNED BY: RT Pawan(R) August 13, 2021 4:21 PM documented in this encounterCincinnati [facility]12-12-2014 History of Past illness Narrative* Problem Noted Date Resolved Date Partial small bowel obstruction 06/27/2014 12/02/2016 Peroneal DVT (deep venous thrombosis) 09/05/2013 06/27/2014 ASA CLASS III 05/10/2002 10/30/2018 documented as of this encounter (statuses as of 11/12/2021) [facility] of Past illness Narrative* Problem Noted Date Resolved Date Partial small bowel obstruction 06/27/2014 12/02/2016 Peroneal DVT (deep venous thrombosis) 09/05/2013 06/27/2014 ASA CLASS III 05/10/2002 10/30/2018 documented as of this encounter (statuses as of 11/24/2021) [facility] of [facility] illness Narrative* Problem Noted Date Resolved Date Partial small bowel obstruction 06/27/2014 12/02/2016 Peroneal DVT (deep venous thrombosis) 09/05/2013 06/27/2014 ASA CLASS III 05/10/2002 10/30/2018 documented as of this encounter (statuses as of 12/08/2021) [facility] illness Narrative* Problem Noted Date Resolved Date Partial small bowel obstruction 06/27/2014 12/02/2016 Peroneal DVT (deep venous thrombosis) 09/05/2013 06/27/2014 ASA CLASS III 05/10/2002 10/30/2018 documented as of this encounter (statuses as of 05/17/2022) [facility] Narrative* Problem Noted Date Resolved Date Partial small bowel obstruction 06/27/2014 12/02/2016 Peroneal DVT (deep venous thrombosis) 09/05/2013 06/27/2014 ASA CLASS III 05/10/2002 10/30/2018 documented as of this encounter (statuses as of 05/27/2022) [facility] Narrative* Problem Noted Date Resolved Date Partial small bowel obstruction 06/27/2014 12/02/2016 Peroneal DVT (deep venous thrombosis) 09/05/2013 06/27/2014 ASA CLASS III 05/10/2002 10/30/2018 documented as of this encounter (statuses as of 07/18/2022) [facility] Narrative* Problem Noted Date Resolved Date Partial small bowel obstruction 06/27/2014 12/02/2016 Peroneal DVT (deep venous thrombosis) 09/05/2013 06/27/2014 ASA CLASS III 05/10/2002 10/30/2018 documented as of this encounter (statuses as of 08/25/2022) [facility] Narrative* Problem Noted Date Resolved Date Partial small bowel obstruction 06/27/2014 12/02/2016 Peroneal DVT (deep venous thrombosis) 09/05/2013 06/27/2014 ASA CLASS III 05/10/2002 10/30/2018 documented as of this encounter (statuses as of 08/25/2022) [facility] Narrative* Problem Noted Date Resolved Date Partial small bowel obstruction 06/27/2014 12/02/2016 Peroneal DVT (deep venous thrombosis) 09/05/2013 06/27/2014 ASA CLASS III 05/10/2002 10/30/2018 documented as of this encounter (statuses as of 09/08/2022) [facility] Narrative* Problem Noted Date Resolved Date Partial small bowel obstruction 06/27/2014 12/02/2016 Peroneal DVT (deep venous thrombosis) 09/05/2013 06/27/2014 ASA CLASS III 05/10/2002 10/30/2018 documented as of this encounter (statuses as of 09/08/2022) [facility] Narrative* Problem Noted Date Resolved Date Partial small bowel obstruction 06/27/2014 12/02/2016 Peroneal DVT (deep venous thrombosis) 09/05/2013 06/27/2014 ASA CLASS III 05/10/2002 10/30/2018 documented as of this encounter (statuses as of 09/13/2022) [facility] Narrative* Problem Noted Date Resolved Date Partial small bowel obstruction 06/27/2014 12/02/2016 Peroneal DVT (deep venous thrombosis) 09/05/2013 06/27/2014 ASA CLASS III 05/10/2002 10/30/2018 documented as of this encounter (statuses as of 09/19/2022) [facility] Narrative* Problem Noted Date Resolved Date Partial small bowel obstruction 06/27/2014 12/02/2016 Peroneal DVT (deep venous thrombosis) 09/05/2013 06/27/2014 ASA CLASS III 05/10/2002 10/30/2018 documented as of this encounter (statuses as of 11/10/2022) [facility] Narrative* Problem Noted Date Diagnosed Date Resolved Date Partial small bowel obstruction 06/27/2014 12/02/2016 Peroneal DVT (deep venous thrombosis) 09/05/2013 06/27/2014 ASA CLASS III 05/10/2002 10/30/2018 documented as of this encounter (statuses as of 02/28/2023) [facility] Narrative* Problem Noted Date Diagnosed Date Resolved Date Partial small bowel obstruction 06/27/2014 12/02/2016 Peroneal DVT (deep venous thrombosis) 09/05/2013 06/27/2014 ASA CLASS III 05/10/2002 10/30/2018 documented as of this encounter (statuses as of 05/18/2023) [facility] Narrative* Problem Noted Date Diagnosed Date Resolved Date Partial small bowel obstruction 06/27/2014 12/02/2016 Peroneal DVT (deep venous thrombosis) 09/05/2013 06/27/2014 ASA CLASS III 05/10/2002 10/30/2018 documented as of this encounter (statuses as of 05/20/2023) [facility] Narrative* Problem Noted Date Diagnosed Date Resolved Date Partial small bowel obstruction 06/27/2014 12/02/2016 Peroneal DVT (deep venous thrombosis) 09/05/2013 06/27/2014 ASA CLASS III 05/10/2002 10/30/2018 documented as of this encounter (statuses as of 06/02/2023) [facility] Narrative* Problem Noted Date Diagnosed Date Resolved Date Partial small bowel obstruction 06/27/2014 12/02/2016 Peroneal DVT (deep venous thrombosis) 09/05/2013 06/27/2014 ASA CLASS III 05/10/2002 10/30/2018 documented as of this encounter (statuses as of 06/27/2023) [facility] Narrative* Problem Noted Date Diagnosed Date Resolved Date Partial small bowel obstruction 06/27/2014 12/02/2016 Peroneal DVT (deep venous thrombosis) 09/05/2013 06/27/2014 ASA CLASS III 05/10/2002 10/30/2018 documented as of this encounter (statuses as of 06/28/2023) [facility] Narrative* Problem Noted Date Diagnosed Date Resolved Date Partial small bowel obstruction 06/27/2014 12/02/2016 Peroneal DVT (deep venous thrombosis) 09/05/2013 06/27/2014 ASA CLASS III 05/10/2002 10/30/2018 documented as of this encounter (statuses as of 08/28/2023) [facility] Narrative* Problem Noted Date Diagnosed Date Resolved Date Partial small bowel obstruction 06/27/2014 12/02/2016 Peroneal DVT (deep venous thrombosis) 09/05/2013 06/27/2014 ASA CLASS III 05/10/2002 10/30/2018 documented as of this encounter (statuses as of 10/20/2023) [facility] Narrative* Problem Noted Date Diagnosed Date Resolved Date Partial small bowel obstruction 06/27/2014 12/02/2016 Peroneal DVT (deep venous thrombosis) 09/05/2013 06/27/2014 ASA CLASS III 05/10/2002 10/30/2018 documented as of this encounter (statuses as of 10/20/2023) [facility] Diagnosis Lung nodules Other nonspecific abnormal finding of lung field [facility] this encounter [facility]* Diagnosis Hypothyroidism, acquired- Primary Unspecified hypothyroidism Need for influenza vaccination Need for prophylactic vaccination and inoculation against influenza Need for COVID-19 vaccine Generalized convulsive epilepsy (HCC) Generalized convulsive epilepsy without mention of intractable epilepsy Imbalance Abnormality of gait COPD with chronic bronchitis (HCC) Obstructive chronic bronchitis without exacerbation Obesity, Class II, BMI 35-39.9 Obesity, unspecified Elevated PSA Elevated prostate specific antigen (PSA) Cerebral palsy, unspecified type (HCC) [facility] Hypothyroidism, acquired Unspecified hypothyroidism documented in this encounter [facility] note* Diagnosis Sinobronchitis- Primary Unspecified sinusitis (chronic) documented in this encounter [facility] note* Diagnosis Cough, unspecified type- Primary SOB (shortness of breath) Shortness of breath COPD with chronic bronchitis (HCC) Obstructive chronic bronchitis without exacerbation documented in this encounter [facility] note* Diagnosis SOB (shortness of breath) Shortness of breath COPD with chronic bronchitis (HCC) Obstructive chronic bronchitis without exacerbation documented in this encounter [facility] note* Diagnosis SOB (shortness of breath) Shortness of breath COPD with chronic bronchitis (HCC) Obstructive chronic bronchitis without exacerbation documented in this encounter [facility] noteNo assessment information availableWSouthern [facility] Medical [facility] Work Phone: evaluation note* Diagnosis 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 Imbalance Abnormality of gait COPD with chronic bronchitis Obstructive chronic bronchitis without exacerbation Hypothyroidism, acquired Unspecified hypothyroidism Cerebral palsy, unspecified type (HCC) Prostate cancer screening Special screening for malignant neoplasm of prostate Dyslipidemia, goal LDL below 100 Other and unspecified hyperlipidemia documented in this encounter [facility] note* Diagnosis Lung nodules Other nonspecific abnormal finding of lung field documented in this encounter [facility] note* Diagnosis Screening for AAA (abdominal aortic aneurysm) Screening for other and unspecified cardiovascular conditions documented in this encounter [facility] note* Diagnosis Hypothyroidism, acquired Unspecified hypothyroidism documented in this encounter [facility] note* Diagnosis Onset Date Resolution Status Dizziness acute Generalized weakness acute Hx of cerebral palsy [facility] Work Phone: evaluation note* Diagnosis Syncope and collapse Vasovagal syncope Syncope and collapse Palpitations documented in this encounter [facility] note* Diagnosis Hypothyroidism, acquired- Primary Unspecified hypothyroidism Balance problem Other symptoms involving nervous and musculoskeletal systems Dizziness Dizziness and giddiness 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) Obstructive chronic bronchitis without exacerbation Cerebral palsy, unspecified type (HCC) documented in this encounter [facility] note* Diagnosis Hypothyroidism, acquired Unspecified hypothyroidism documented in this encounter [facility] note* Diagnosis Suspected COVID-19 virus infection documented in this encounter [facility] for referral (narrative)* Diagnostic Procedure Only (Routine) - Closed Specialty Diagnoses / [facility] Diagnoses Lung nodules Procedures CT CHEST WO IVCON DIAGNOSTIC COMPUTED TOMOGRAPHY THORAX W/O CNTRST Usman Patel MD [address] [place] [address] Ct Imaging Referral ID Status Reason Start Date Expiration Date Visits Re quested Visits Authorized [id number] Closed 11/23/2021 12/23/2021 1 1 [facility] for referral (narrative)* Outpatient Procedure (Routine) - Authorized Specialty Diagnoses / Procedures [facility] Diagnoses SOB (shortness of breath) COPD with chronic bronchitis (HCC) Procedures LUNG VOLUMES Shayna Frias APRN.CNP [address] [place] [address] [facility] [address] [place], [place] [id number] Referral ID Status Reason Start Date Expiration Date Visits Requested Visits Authorized [id number] Authorized Auto-Generat ed Referral 09/08/2022 07/16/2023 1 1 * Outpatient Procedure (Routine) - Authorized Specialty Diagnoses / [facility] Diagnoses SOB (shortness of breath) COPD with chronic bronchitis (HCC) Procedures NITRIC OXIDE, EXHALED NITRIC OXIDE GAS DETERMINATION Shayna Frias APRN.CNP [address] [place] [address] [address] Referral ID Status Reason Start Date Expiration Date Visits Requested Visits Authorized [id number] Authorized Auto-Generat ed Referral 09/08/2022 10/08/2023 1 1 * Outpatient Procedure (Routine) - Authorized Specialty Diagnoses / Procedures Referred By [facility] Referred To [facility] Diagnoses SOB (shortness of breath) COPD with chronic bronchitis (HCC) Procedures SPIROMETRY - BASELINE AND POST DILATOR BRNCDILAT RSPSE SPMTRY PRE&POST-BRNCDILAT Shayna Montelongo APRN.CNP [address] [place] [address] [facility] [address] [place] [id number] Referral ID Status Reason Start Date Expiration Date Visits Requested Visits Authorized [id number] Authorized Auto-Generat ed Referral 09/08/2022 10/08/2023 1 1 [facility] for referral (narrative)* Diagnostic Procedure Only (Routine) - Closed Specialty Diagnoses / Procedures [facility] IMAGING Diagnoses Screening for AAA (abdominal aortic aneurysm) Procedures US SCREENING FOR AAA (2017) US ABDOMINAL AORTA REAL TIME SCREEN STUDY AAA Usman Patel MD [address] [place] [address] [place] [address] Referral ID Status Reason Start Date Expiration Date V isits Requested Visits Authorized [id number] Closed Auto-Generate d Referral 11/14/2022 12/14/2023 1 1 [facility] for referral (narrative)* Outpatient Procedure (Routine) - Authorized Specialty Diagnoses / Procedures [facility] Diagnoses Syncope and collapse Procedures US CAROTID ARTERIES BRIGHT [facility] LAB DUPLEX SCAN EXTRACRANIAL ART COMPL BI STUDY Aiden Mccrary MD [address] [place] [address] [facility] [address] [place] [id number] Referral ID Status Reason Start Date Expiration Date Visits Requested Visits Authorized [id number] Authorized Auto-Generat ed Referral 08/28/2023 08/27/2024 1 1 * Outpatient Procedure (Routine) - Authorized Specialty Diagnoses / Procedures Referred By Contac t [facility] Diagnoses Syncope and collapse Palpitations Procedures ECHO ECHO TTHRC R-T 2D W/WOM-MODE COMPL SPEC&COLR D Aiden Mccrary MD [address] [place] [address] [facility] [address] [place] [address] Referral ID Status Reason Start Date Expiration Date Visits Requested Visits Authorized [id number] Authorized Auto-Generat ed Referral 08/28/2023 10/26/2023 2 1 [facility] CenterReason [facility] (narrative)No reason for referral information availableWSouthern [facility] Work Phone: Advance Directives No Advanced Directives Records FoundDocuments on File Type Date Recorded Patient Control Systems Specialist Expl anation Advance Directive(s) Advance Directive(s) 02/01/2016 9:58 AM Advance Directive(s) 12/25/2015 9:25 AM Documents on File Type Date Recorded Patient Control Systems Specialist Expl anation Advance Directive(s) Advance Directive(s) 02/01/2016 9:58 AM Advance Directive(s) 12/25/2015 9:25 AM Advance Directive Response Recorded Date/ Time Advance Directives No August 02, 2013 10:12pm Living Will No February 24 7:04pm Power of Cash Analyst No February 24 7:04pm Advance Directive Response Recorded Date/ Time Advance Directives No August 02, 2013 9:12pm Living Will No June 23 8:10pm Power of Cash Analyst No June 23, 2023 8:10pm Advance Directive Response Recorded Date/ Time Advance Directives No August 02, 2013 10:12pm Chief Complaint and Reason for Visit Chief Complaint RIGHT ANKLE INJURY Chief Complaint DIZZINESS Dizziness (cardiology) Dizziness (cardiology) Dizziness (cardiology) Reason for Visit Dizziness Generalized weakness Hx of cerebral palsy Chief Complaint Admit Date LONG-TERM LAB WORK July 23, 2024 4:50am LONG-TERM LAB WORK August 20, 2024 5:00am LABWORK September 03, 2024 5:00am LONG-TERM LAB WORK September 17, 2024 4: 00am Chief Complaint Admit Date LONG-TERM LAB WORK July 23, 2024 4:50am LONG-TERM LAB WORK August 20, 2024 5:00am LABWORK September 03, 2024 5:00am LONG-TERM LAB WORK September 17, 2024 4: 00am LONG-TERM LAB WORK October 04, 2024 5 :00am Chief Complaint Admit Date LONG-TERM LAB WORK August 20, 2024 5:00am LABWORK September 03, 2024 5:00am LONG-TERM LAB WORK September 17, 2024 4: 00am LONG-TERM LAB WORK October 04, 2024 5 :00am LONG-TERM LAB WORK October 15, 2024 5: 00am LABWORK November 26, 2024 5:00a m Chief Complaint Admit Date LABWORK September 03, 2024 5:00am LONG-TERM LAB WORK September 17, 2024 4: 00am LONG-TERM LAB WORK October 04, 2024 5 :00am LONG-TERM LAB WORK October 15, 2024 5: 00am LONG-TERM LAB WORK November 19, 2024 5:00 am LABWORK November 26, 2024 5:00a m Chief Complaint Admit Date LONG-TERM LAB WORK September 17, 2024 4: 00am LONG-TERM LAB WORK October 04, 2024 5 :00am LONG-TERM LAB WORK October 15, 2024 5: 00am Monthly Exam October 15, 2024 5:11 pm LONG-TERM LAB WORK November 19, 2024 5:00 am LABWORK November 26, 2024 5:00a m Family History No Family History Records Found Relationship Condition Age at Onset Recorded Date/T sukhwinder Unknown Family History?No pe rtinent history Unknown August 30, 2017 3:11pm Family History?No pe rtinent history Unknown August 30, 2017 3:11pm Relationship Condition Age at Onset Recorded Date/T sukhwinder Not Specified Cardiac disease Unknown Reason for Referral Specialty Diagnoses / Procedures Referred By Contac t Referred To Contact CT IMAGING Diagnoses Lung nodules Procedures CT CHEST WO IVCON DIAGNOSTIC COMPUTED TOMOGRAPHY THORAX W/O KALIT Usman Patel MD [address] [place] [address] [address] [place] [address] Referral ID Status Reason Start Date Expiration Date V isits Requested Visits Authorized [id number] Closed Auto-Generate d Referral 11/24/2022 12/24/2022 1 1 Summary Purpose Additional Source Comments Source Comments (unrecognize d section and content) In the event this informatio n is protected by the Federal Confidentiality of Alcohol and Drug Abuse Patient Records regulations: The Federal rules restrict any use of the information to criminally investigate or prosecute any alcohol or drug abuse patient.[facility] CenterIn the event this information is protected by the Federal Confidentiality of Alcohol and Drug Abuse Patient Records regulations: The Federal rules restrict any use of the information to criminally investigate or prosecute any alcohol or drug abuse patient.[facility] CenterIn the event this information is protected by the Federal Confidentiality of Alcohol and Drug Abuse Patient Records regulations: The Federal rules restrict any use of the information to criminally investigate or prosecute any alcohol or drug abuse patient.[facility] CenterIn the event this information is protected by the Federal Confidentiality of Alcohol and Drug Abuse Patient Records regulations: The Federal rules restrict any use of the information to criminally investigate or prosecute any alcohol or drug abuse patient.[facility] CenterIn the event this information is protected by the Federal Confidentiality of Alcohol and Drug Abuse Patient Records regulations: The Federal rules restrict any use of the information to criminally investigate or prosecute any alcohol or drug abuse patient.[facility] CenterIn the event this information is protected by the Federal Confidentiality of Alcohol and Drug Abuse Patient Records regulations: The Federal rules restrict any use of the information to criminally investigate or prosecute any alcohol or drug abuse patient.[facility] CenterIn the event this information is protected by the Federal Confidentiality of Alcohol and Drug Abuse Patient Records regulations: The Federal rules restrict any use of the information to criminally investigate or prosecute any alcohol or drug abuse patient.[facility] CenterIn the event this information is protected by the Federal Confidentiality of Alcohol and Drug Abuse Patient Records regulations: The Federal rules restrict any use of the information to criminally investigate or prosecute any alcohol or drug abuse patient.[facility] CenterIn the event this information is protected by the Federal Confidentiality of Alcohol and Drug Abuse Patient Records regulations: The Federal rules restrict any use of the information to criminally investigate or prosecute any alcohol or drug abuse patient.[facility] CenterIn the event this information is protected by the Federal Confidentiality of Alcohol and Drug Abuse Patient Records regulations: The Federal rules restrict any use of the information to criminally investigate or prosecute any alcohol or drug abuse patient.[facility] CenterIn the event this information is protected by the Federal Confidentiality of Alcohol and Drug Abuse Patient Records regulations: The Federal rules restrict any use of the information to criminally investigate or prosecute any alcohol or drug abuse patient.[facility] CenterIn the event this information is protected by the Federal Confidentiality of Alcohol and Drug Abuse Patient Records regulations: The Federal rules restrict any use of the information to criminally investigate or prosecute any alcohol or drug abuse patient.[facility] CenterIn the event this information is protected by the Federal Confidentiality of Alcohol and Drug Abuse Patient Records regulations: The Federal rules restrict any use of the information to criminally investigate or prosecute any alcohol or drug abuse patient.[facility] CenterIn the event this information is protected by the Federal Confidentiality of Alcohol and Drug Abuse Patient Records regulations: The Federal rules restrict any use of the information to criminally investigate or prosecute any alcohol or drug abuse patient.[facility] CenterIn the event this information is protected by the Federal Confidentiality of Alcohol and Drug Abuse Patient Records regulations: The Federal rules restrict any use of the information to criminally investigate or prosecute any alcohol or drug abuse patient.[facility] CenterIn the event this information is protected by the Federal Confidentiality of Alcohol and Drug Abuse Patient Records regulations: The Federal rules restrict any use of the information to criminally investigate or prosecute any alcohol or drug abuse patient.[facility] CenterIn the event this information is protected by the Federal Confidentiality of Alcohol and Drug Abuse Patient Records regulations: The Federal rules restrict any use of the information to criminally investigate or prosecute any alcohol or drug abuse patient.[facility] CenterIn the event this information is protected by the Federal Confidentiality of Alcohol and Drug Abuse Patient Records regulations: The Federal rules restrict any use of the information to criminally investigate or prosecute any alcohol or drug abuse patient.[facility] CenterIn the event this information is protected by the Federal Confidentiality of Alcohol and Drug Abuse Patient Records regulations: The Federal rules restrict any use of the information to criminally investigate or prosecute any alcohol or drug abuse patient.[facility] CenterIn the event this information is protected by the Federal Confidentiality of Alcohol and Drug Abuse Patient Records regulations: The Federal rules restrict any use of the information to criminally investigate or prosecute any alcohol or drug abuse patient.[facility] CenterIn the event this information is protected by the Federal Confidentiality of Alcohol and Drug Abuse Patient Records regulations: The Federal rules restrict any use of the information to criminally investigate or prosecute any alcohol or drug abuse patient.[facility] CenterIn the event this information is protected by the Federal Confidentiality of Alcohol and Drug Abuse Patient Records regulations: The Federal rules restrict any use of the information to criminally investigate or prosecute any alcohol or drug abuse patient.[facility] CenterIn the event this information is protected by the Federal Confidentiality of Alcohol and Drug Abuse Patient Records regulations: The Federal rules restrict any use of the information to criminally investigate or prosecute any alcohol or drug abuse patient.[facility] CenterIn the event this information is protected by the Federal Confidentiality of Alcohol and Drug Abuse Patient Records regulations: The Federal rules restrict any use of the information to criminally investigate or prosecute any alcohol or drug abuse patient.[facility] CenterIn the event this information is protected by the Federal Confidentiality of Alcohol and Drug Abuse Patient Records regulations: The Federal rules restrict any use of the information to criminally investigate or prosecute any alcohol or drug abuse patient.[facility] CenterIn the event this information is protected by the Federal Confidentiality of Alcohol and Drug Abuse Patient Records regulations: The Federal rules restrict any use of the information to criminally investigate or prosecute any alcohol or drug abuse patient.[facility] CenterIn the event this information is protected by the Federal Confidentiality of Alcohol and Drug Abuse Patient Records regulations: The Federal rules restrict any use of the information to criminally investigate or prosecute any alcohol or drug abuse patient.[facility] CenterIn the event this information is protected by the Federal Confidentiality of Alcohol and Drug Abuse Patient Records regulations: The Federal rules restrict any use of the information to criminally investigate or prosecute any alcohol or drug abuse patient.[facility] CenterIn the event this information is protected by the Federal Confidentiality of Alcohol and Drug Abuse Patient Records regulations: The Federal rules restrict any use of the information to criminally investigate or prosecute any alcohol or drug abuse patient.[facility] CenterIn the event this information is protected by the Federal Confidentiality of Alcohol and Drug Abuse Patient Records regulations: The Federal rules restrict any use of the information to criminally investigate or prosecute any alcohol or drug abuse patient.[facility] CenterIn the event this information is protected by the Federal Confidentiality of Alcohol and Drug Abuse Patient Records regulations: The Federal rules restrict any use of the information to criminally investigate or prosecute any alcohol or drug abuse patient.[facility] Reason for Visit (unrecogniz ed section and content) Reason Comments Results Reason Comments Radiology CT Specialty Diagnoses / Procedures Referred By Contac t Referred To Contact CT IMAGING Diagnoses Lung nodules Procedures CT CHEST WO IVCON DIAGNOSTIC COMPUTED TOMOGRAPHY THORAX W/O CNTRST Usman Patel MD [address] [place] [address] Ct Imaging Referral ID Status Reason Start Date Expiration Date Visits Re quested Visits Authorized [id number] Closed 11/23/2021 12/23/2021 1 1 Reason Onset Date Comments [facility] Monitoring 12/08/2021 Enrollme nt Outreach Reason Onset Date Comments 6 Month Exam Immunizations 05/17/2022 Flu vaccination Reason Comments Forms [facility] Reason Comments Acute Visit upper repiratory Reason Comments Results COVID/flu. Reason Comments Appointment Reason Comments Acute Visit headcold/fatique Reason Comments Spirometry Specialty Diagnoses / Procedures [facility] Diagnoses SOB (shortness of breath) COPD with chronic bronchitis (HCC) Procedures SPIROMETRY - BASELINE AND POST DILATOR BRNCDILAT RSPSE SPMTRY PRE&POST-BRNCDILAT ADMN Shayna Frias APRN.MONUMENT ERECTOR [address] [place] [address] [facility] [address] [place] [address] Referral ID Status Reason Start Date Expiration Date V isits Requested Visits Authorized [id number] Closed Auto-Generate d Referral 09/08/2022 10/08/2023 1 1 Specialty Diagnoses / Procedures [facility] Diagnoses SOB (shortness of breath) COPD with chronic bronchitis (HCC) Procedures NITRIC OXIDE, EXHALED NITRIC OXIDE GAS DETERMINATION Shayna Frias APRN.MONUMENT ERECTOR [address] [place] [address] [facility] [address] [place] [address] Referral ID Status Reason Start Date Expiration Date V isits Requested Visits Authorized [id number] Closed Auto-Generate d Referral 09/08/2022 10/08/2023 1 1 Specialty Diagnoses / Procedures Referred By Contac t Referred To Contact [facility] Diagnoses SOB (shortness of breath) COPD with chronic bronchitis (HCC) Procedures LUNG VOLUMES Shayna Frias APRN.GERA [address] [place] [address] [facility] [address] [place] [address] Referral ID Status Reason Start Date Expiration Date V isits Requested Visits Authorized [id number] Closed Auto-Generate d Referral 09/08/2022 07/16/2023 1 1 Reason Comments Results PFT's Reason Onset Date Comments Results 06/10/2022 Reason Comments Patient Update Fall Reason Onset Date Comments 6 Month Exam Immunizations 05/17/2023 Flu vaccination Specialty Diagnoses / Procedures Referred By Contac t Referred To Contact CT IMAGING Diagnoses Lung nodules Procedures CT CHEST WO IVCON DIAGNOSTIC COMPUTED TOMOGRAPHY THORAX W/O CNTRST Usman Patel MD [address] [place] [address] [place] [address] Referral ID Status Reason Start Date Expiration Date V isits Requested Visits Authorized [id number] Closed Auto-Generate d Referral 11/24/2022 12/24/2022 1 1 Reason Comments Radiology [facility] Specialty Diagnoses / Procedures Referred By Contac t Referred To Contact US IMAGING Diagnoses Screening for AAA (abdominal aortic aneurysm) Procedures US SCREENING FOR AAA (2017) US ABDOMINAL AORTA REAL TIME SCREEN STUDY AAA Usman Patel MD [address] [place] [address] Us Imaging [facility] Referral ID Status Reason Start Date Expiration Date V isits Requested Visits Authorized [id number] Closed Auto-Generate d Referral 11/14/2022 12/14/2023 1 1 Reason Onset Date Comments Refill Request 06/01/2023 Reason Comments Patient Update Reason Onset Date Comments Transition Of Care 06/27/2023 Reason Comments Consult Specialty Diagnoses / Procedures Referred By Contac t Referred To Contact Cardiology Diagnoses Syncope and collapse Procedures CONSULT TO CARDIOLOGY OFFICE/OUTPATIENT [facility] 60 MINUTES Temitope Lara PA-C [address] [place] [address] Referral ID Status Reason Start Date Expiration Date V isits Requested Visits Authorized [id number] Closed PCP Requested Referral 07/19/2023 07/18/2024 1 1 Reason Comments Forms Orders from [place] - 90 day Reason Comments F/U 3 Month Reason Comments Forms [facility] 90 d ay order Reason Onset Date Comments Refill Request 03/04/2024 Reason Comments Med Change Request Reason Comments Forms [place] Reason Comments Forms 90 day order for [facility] Care Teams (unrecognized sec tion and content) Filling Station Equipment Mechanic Relationship Specialty Start Date End Date Usman Patel MD [address] [place] [address] PCP - General Family Practice 05/10/21 Filling Station Equipment Mechanic Relationship Specialty Start Date End Date Usman Patel MD [address] [place] [address] PCP - General Family Practice 05/10/21 Filling Station Equipment Mechanic Relationship Specialty Start Date End Date Usman Patel MD [address] [place] [address] PCP - General Family Practice 05/10/21 Filling Station Equipment Mechanic Relationship Specialty Start Date End Date Usman Patel MD [address] [place] [address] PCP - General Family Medicine 05/10/21 Filling Station Equipment Mechanic Relationship Specialty Start Date End Date Usman Patel MD [address] [place] [address] PCP - General Family Medicine 05/10/21 Filling Station Equipment Mechanic Relationship Specialty Start Date End Date Usman Patel MD [address] [place] [address] PCP - General Family Medicine 05/10/21 Filling Station Equipment Mechanic Relationship Specialty Start Date End Date Usman Patel MD [address] [place] [address] PCP - General Family Medicine 05/10/21 Filling Station Equipment Mechanic Relationship Specialty Start Date End Date Usman Patel MD [address] [place] [address] PCP - General Family Medicine 05/10/21 Filling Station Equipment Mechanic Relationship Specialty Start Date End Date Usman Patel MD [address] [place] [address] PCP - General Family Medicine 05/10/21 Filling Station Equipment Mechanic Relationship Specialty Start Date End Date Usman Patel MD [address] [place] [address] PCP - General Family Medicine 05/10/21 Filling Station Equipment Mechanic Relationship Specialty Start Date End Date Usman Patel MD [address] [place] [address] PCP - General Family Medicine 05/10/21 Filling Station Equipment Mechanic Relationship Specialty Start Date End Date Usman Patel MD [address] [place] [address] PCP - General Family Medicine 05/10/21 Team Status: Active Member Role Status Dates Dr. Nakul Lopez III, MD Family Provider Active Dr. Usman Patel MD Primary Care Provider Active Team Status: Inactive Member Role Status Dates Dr. Prince Zimmer DO Emergency Provider Active Dr. Usman Patel MD Primary Care Provider Active Filling Station Equipment Mechanic Relationship Specialty Start Date End Date Usman Patel MD [address] [place] [address] PCP - General Family Medicine 05/10/21 Filling Station Equipment Mechanic Relationship Specialty Start Date End Date Usman Patel MD [address] [place] [address] PCP - General Family Medicine 05/10/21 Filling Station Equipment Mechanic Relationship Specialty Start Date End Date Usman Patel MD [address] [place], [place] [address] PCP - General Family Medicine 05/10/21 Filling Station Equipment Mechanic Relationship Specialty Start Date End Date Usman Patel MD [address] [place], [place] [address] PCP - General Family Medicine 05/10/21 Team Status: Active Member Role Status Dates Dr. Usman Patel MD Primary Care Provider Active Dr. Ethan Martinez DO Emergency Provider Active Dr. Raoul Oliver MD Admit Provi reid, Attending Provider, Other Provider Active Team Status: Active Member Role Status Dates Dr. Usman Patel MD Primary Care Provider Active Dr. Ethan aMrtinez DO Emergency Provider Active Dr. Raoul Oliver MD Admit Provider, Other Pro vider Active Dr. Kike Malave MD Attending Provider, Other Provi reid Active Team Status: Inactive Member Role Status Dates Dr. Usman Patel MD Primary Care Provider Active Dr. Ethan Martinez DO Emergency Provider Active Dr. Raoul Oliver MD Admit Provider, Other Pro vider Active Dr. Kike Malave MD Attending Provider Active Filling Station Equipment Mechanic Relationship Specialty Start Date End Date Usman Patel MD [address] [place] [address] PCP - General Family Medicine 05/10/21 Filling Station Equipment Mechanic Relationship Specialty Start Date End Date Usman Patel MD [address] [place], [place] [id number] PCP - General Family Medicine 05/10/21 Filling Station Equipment Mechanic Relationship Specialty Start Date End Date Usman Patel MD [address] [place], [place] [address] PCP - General Family Medicine 05/10/21 Filling Station Equipment Mechanic Relationship Specialty Start Date End Date Usman Patel MD [address] [place] [address] PCP - General Family Medicine 05/10/21 Filling Station Equipment Mechanic Relationship Specialty Start Date End Date Usman Patel MD [address] [place] [address] PCP - General Family Medicine 05/10/21 Filling Station Equipment Mechanic Relationship Specialty Start Date End Date Usman Patel MD [address] [place] [address] PCP - General Family Medicine 05/10/21 Filling Station Equipment Mechanic Relationship Specialty Start Date End Date Usman Patel MD [address] [place] [address] PCP - General Family Medicine 05/10/21 Filling Station Equipment Mechanic Relationship Specialty Start Date End Date Usman Patel MD [address] [place] [address] PCP - General Family Medicine 05/10/21 Shayna Frias APRN.MONUMENT ERECTOR [address] [place] [address] Pattern Designer Family Medicine 06/23/24 Team Status: Active Member Role Status Dates Dr. Usman Patel MD Primary Care Provider Active Start: July 23, 2024 Micaela MÉNDEZ MD Attending Provider Active Start: July 23, 2024 Micaela MÉNDEZ MD Referring Provider Active Start: July 23, 2024 Team Status: Active Member Role Status Dates Dr. Usman Patel MD Primary Care Provider Active Start: August 20, 2024 Micaela MÉNDEZ MD Attending Provider Active Start: August 20, 2024 Team Status: Active Member Role Status Dates Dr. Usman Patel MD Primary Care Provider Active Start: September 03, 2024 Micaela MÉNDEZ MD Attending Provider Active Start: September 03, 2024 Team Status: Inactive Member Role Status Dates Dr. Usman Patel MD Primary Care Provider Active Start: September 17, 2024 End: September 17, 2024 Micaela MÉNDEZ MD Attending Provider Active Start: September 17, 2024 End: September 17, 2024 Micaela MÉNDEZ MD Referring Provider Active Start: September 17, 2024 End: September 17, 2024 Team Status: Active Member Role Status Dates Dr. Usman Patel MD Primary Care Provider Active Start: October 04, 2024 Micaela MÉNDEZ MD Attending Provider Active Start: October 04, 2024 Team Status: Active Member Role Status Dates Dr. Usman Patel MD Primary Care Provider Active Start: October 15, 2024 Jolly MÉNDEZ NP-C Attending Provider Active Start: October 15, 2024 Team Status: Inactive Member Role Status Dates Dr. Usman Patel MD Primary Care Provider Active Start: October 04, 2024 End: October 04, 2024 Micaela MÉNDEZ MD Attending Provider Active Start: October 04, 2024 End: October 04, 2024 Team Status: Inactive Member Role Status Dates Dr. Usman Patel MD Primary Care Provider Active Start: October 15, 2024 End: October 15, 2024 Jolly MÉNDEZ NP-C Attending Provider Active Start: October 15, 2024 End: October 15, 2024 Team Status: Active Member Role Status Dates Dr. Usman Patel MD Primary Care Provider Active Start: November 19, 2024 Jolly MÉNDEZ NP-C Attending Provider Active Start: November 19, 2024 Team Status: Inactive Member Role Status Dates Dr. Usman Patel MD Primary Care Provider Active Start: November 26, 2024 End: November 26, 2024 Micaela MÉNDEZ MD Attending Provider Active Start: November 26, 2024 End: November 26, 2024 Team Status: Inactive Member Role Status Dates Dr. Usman Patel MD Primary Care Provider Active Start: November 19, 2024 End: November 19, 2024 BETHANIE Casanova Attending Provider Active Start: November 19, 2024 End: November 19, 2024 Team Status: Active Member Role Status Dates Dr. Usman Patel MD Primary Care Provider Active Start: December 17, 2024 BETHANIE Casanova Attending Provider Active Start: December 17, 2024 Team Status: Inactive Member Role Status Dates Dr. Usman Patel MD Primary Care Provider Active Start: October 15, 2024 End: October 15, 2024 Dr. Micaela Holder MD Attending Provider Active Start: October 15, 2024 End: October 15, 2024 Goals (unrecognized section and content) Goals may be documented in a n alternate sectionGoals may be documented in an alternate sectionGoals may be documented in an alternate sectionGoals may be documented in an alternate sectionGoals may be documented in an alternate sectionGoals may be documented in an alternate section (unrecognized sect ion and content) No Status Records FoundNo Status Records FoundNo Status Records Found INFORMATION SOURCE (unrecogn ized section and content) DATE CREATED AUTHOR 10/06/2023 [facility] DATE CREATED AUTHOR AUTHOR'S ORGANIZ ATION 07/05/2024 [facility] DATE CREATED AUTHOR AUTHOR'S ORGANIZ ATION 01/08/2025 [facility] FOR RECORDS PERTAINING TO PATIENTS WHO ARE OR HAVE BEEN ENROLLED IN A CHEMICAL DEPENDENCY/SUBSTANCEABUSE PROGRAM, SOME INFORMATION MAY BE OMITTED. This clinical summary was aggregated from multiple sources. Caution should be exercised in using it in the provision of clinical care. This summary normalizes information from multiple sources, and as a consequence, information in this document may materially change the coding, format and clinical context of patient data. In addition, data may be omitted in some cases. CLINICAL DECISIONS SHOULD BE BASED ON THE PRIMARY CLINICAL RECORDS. [email or web address] provides no warranty or guarantee of the accuracy or completeness of information in this document.
[2025-01-14 11:08] LABS: Carbamazepine (Tegretol) 10.8 ug/mL (4.0-12.0)
[2025-01-14 11:24] LABS: AST(SGOT) 19 U/L (<=37); Alanine Aminotransfer ALT/SGPT 14 U/L (<=46); Albumin, Serum 3.5 g/dL (3.4-4.8); Alkaline Phosphatase 79 U/L (40-129); Bilirubin, Direct < 0.08 mg/dL (0.00-0.30); Globulin 2.9 g/dL (2.2-4.2); Vitamin B12 431 pg/mL (180-914)
[2025-01-17 10:08] LABS: KEPPRA (LEVETIRACETAM) 15.6 ug/mL (10.0-40.0)
== END ==
LOC: OLS.WHLEAS 05:00
PROVIDERS: PCP Family Medicine; Visit Provider Nurse Practitioner Adult Health
DX: R48.8 Other symbolic dysfunctions (principal); G80.9 Cerebral palsy, unspecified; G40.319 Generalized idiopathic epilepsy and epileptic syndromes, intractable, without status epilepticus
CPT/HCPCS: 36415; 80076; 80156; 80177; 82607

== ENCOUNTER → 2025-02-18 | Outpatient (REF) | payer MEDICARE, MEDICAID, SELFPAY ==
[2025-02-18 09:37] LABS: Hematocrit 35.9 % (40-54); Hemoglobin 11.8 g/dL (13.0-16.5); Immature Granulocytes Count 0.020 X10^3/uL (0.0-0.0); Mean Corp Hgb Conc 32.9 g/dL (32-36); Mean Corpuscular Volume 98.6 fL (80-94); Mean Platelet Vol. 9.9 fl (6.2-12.0); NRBC Flagged by Analyzer 0 % (0-5); Platelet Count 243 K/mm3 (150-450); RBC Distribution Width CV 12.9 % (11.6-14.6); RBC Distribution Width SD 47.1 fl (35.1-43.9); Red Blood Count 3.64 M/mm3 (4.6-6.2); White Blood Count 6.0 K/mm3 (4.4-11.0)
[2025-02-18 10:06] LABS: Carbamazepine (Tegretol) 10.7 ug/mL (4.0-12.0)
[2025-02-18 10:22] LABS: AST(SGOT) 16 U/L (<=37); Alanine Aminotransfer ALT/SGPT 16 U/L (<=46); Albumin, Serum 3.7 g/dL (3.4-4.8); Alkaline Phosphatase 76 U/L (40-129); Anion Gap 11 (5-15); BUN 20 mg/dL (4-19); BUN/Creat Ratio 18.7 RATIO (10-20); Bilirubin, Direct 0.09 mg/dL (0.00-0.30); Calcium,Total 8.9 mg/dL (7.6-11.0); Carbon Dioxide 20.9 mmol/L (21.0-32.0); Chloride 108 mmol/L (98-108); Globulin 2.9 g/dL (2.2-4.2); Glucose 103 mg/dL (70-99); Potassium 4.2 mmol/L (3.3-5.1); Vitamin B12 429 pg/mL (180-914)
[2025-02-20 17:08] LABS: KEPPRA (LEVETIRACETAM) 16.9 ug/mL (10.0-40.0)
== END ==
LOC: OLS.WHLEAS 05:00
PROVIDERS: PCP Family Medicine; Visit Provider Internal Medicine
DX: G80.9 Cerebral palsy, unspecified (principal); R48.8 Other symbolic dysfunctions; M62.562 Muscle wasting and atrophy, not elsewhere classified, left lower leg; M62.561 Muscle wasting and atrophy, not elsewhere classified, right lower leg; G40.319 Generalized idiopathic epilepsy and epileptic syndromes, intractable, without status epilepticus; E03.9 Hypothyroidism, unspecified
CPT/HCPCS: 36415; 80048; 80076; 80156; 80177; 82607; 84443; 85025

== ENCOUNTER → 2025-03-18 05:00 | Outpatient (REF) | payer MEDICARE, MEDICAID, SELFPAY ==
[2025-03-18 09:01] LABS: AST(SGOT) 18 U/L (<=37); Alanine Aminotransfer ALT/SGPT 15 U/L (<=46); Albumin, Serum 3.5 g/dL (3.4-4.8); Alkaline Phosphatase 67 U/L (40-129); Bilirubin, Direct 0.12 mg/dL (0.00-0.30); Globulin 3.0 g/dL (2.2-4.2); Vitamin B12 450 pg/mL (180-914)
== END ==
LOC: OLS.WHLEAS 05:00
PROVIDERS: PCP Family Medicine; Visit Provider Nurse Practitioner Adult Health
DX: R48.8 Other symbolic dysfunctions (principal); M62.562 Muscle wasting and atrophy, not elsewhere classified, left lower leg; M62.561 Muscle wasting and atrophy, not elsewhere classified, right lower leg; G80.9 Cerebral palsy, unspecified
CPT/HCPCS: 36415; 80076; 82607

== ENCOUNTER → 2025-04-01 05:00 | Outpatient (REF) | payer MEDICARE, MEDICAID, SELFPAY ==
--- OUTSIDE RECORDS SUMMARY | 2025-04-01 04:10 | XMS RPT_ITS | CCD ---
Author Organization [facility] Care Team Providers Care Custody Officer Name Role Phone Usman Patel MD Primary [...] Jorge TRIPATHI, Dr. Wilks Primary Care Provider Micaela Holder MD Attending Provider Sara Holder MD, Micaela Referring Provider Unavailoscar Macdonald OFFICE ELECTRICIAN-CJolly Attending Provider [phone] Dr. Usman Patel MD Primary Care Provider [phone] Gallo TRPIATHI, Micaela Attending Provider Unavailoscar Holder MD, Micaela Referring Provider Unavailoscar Patel MD, Dr. Wilks Primary Care Provider Gallo TRIPATHI, Micaela Attending Provider Unavailoscar Patel MD, Dr. Wilks Primary Care Provider Gallo TRIPATHI, Micaela Attending Provider Unavailoscar Holder MD, Dr. Hinojosa Attending Provider [phone] Jorge TRIPATHI, Dr. Wilks Primary Care Provider Gallo TRIPATHI, Micaela Attending Provider Unavailoscar Patel MD, Dr. Wilks Primary Care Provider [phone] Renae OFFICE ELECTRICIAN-C, Jolly Attending Provider Gallo TRIPATHI, Micaela Attending Provider Unavailoscar Patel MD, Dr. Wilks Primary Care Provider Renae OFFICE ELECTRICIAN-C, Jolly Attending Provider [phone] Gallo TRIPATHI, Dr. Hinojosa Attending Provider [phone] Poornima Holden Attending Provider Oleghe OLS, Efewongbe Attending Unavailabl Usman Ross Primary Care Unavailable Oleghe OLS, Efewongbe Attending Unavailabl e Oleghe OLS, Efewongbe Referring UnavailUsman Mcrae Primary Care Unavailable Oleghe OLS, Efewongbe Attending UnavailUsman Mcrae Primary Care Unavailable Oleghe OLS, Efewongbe Attending UnavailUsman Mcrae Primary Care Unavailable Oleghe OLS, Efewongbe Attending UnavailUsman Mcrae Primary Care Unavailable Oleghe OLS, Efewongbe Attending Unavailabl e [place], Usman Primary Care Unavailable Oleghe OLS, Efewongbe Referring Unavailabl e Oleghe OLS, Efewongbe Attending Unavailabl e [place], Usman Primary Care Unavailable Burton, Melissa Consulting Unavailable Burton, Melissa Admitting Unavailable Ananda, Kike Attending Unavailable [place], Usman Primary Care Unavailable [place], Usman Primary Care Unavailable Tickton HONEY Jolly Attending Unavailable Tickton OLS, Jolly Attending Unavailable [place], Usman Primary Care Unavailable Oleghe OLS, Efewongbe Attending Unavailabl e [place], Usman Primary Care Unavailable Tickton OLS, Jolly Attending Unavailable [place], Usman Primary Care Unavailable Tickton OLS, Jolly Attending Unavailable [place], Usman Primary Care Unavailable Oleghe OLS, Efewongbe Attending Unavailabl e [place], Usman Primary Care Unavailable Jackieton OLS, Jolly Attending Unavailable [place], Usman Primary Care Unavailable [place], Usman Primary Care Unavailable Oleghe OLS, Efewongbe Attending Unavailabl e Oleghe OLS, Efewongbe Attending Unavailabl e [place], Usman Primary Care Unavailable Oleghe OLS, Efewongbe Attending Unavailabl e [place], Usman Primary Care Unavailable Burton, Melissa Consulting Unavailable Burton, Melissa Admitting Unavailable Ananda, Kike Attending Unavailable [place], Usman Primary Care Unavailable Ananda, Kike Consulting Unavailable Burton, Melissa Attending Unavailable Oleghe OLS, Efewongbe Attending Unavailabl e [place], Usman Primary Care Unavailable Oleghe OLS, Efewongbe Attending Unavailabl e [place], Usman Primary Care Unavailable Oleghe OLS, Efewongbe Attending Unavailabl e [place], Usman Primary Care Unavailable Oleghe OLS, Efewongbe Attending Unavailabl e [place], Usman Primary Care Unavailable Oleghe, Efewongbe Attending Unavailable [place], Usman Primary Care Unavailable Poornima Holden Attending Unavailable [place], Usman Primary Care Unavailable [place], Usman Primary Care Unavailable Renae OFFICE ELECTRICIANJolly Attending Unavailable Oleghe, Efewongbe Attending Unavailable [place], Usman Primary Care Unavailable [place], Usman Primary Care Unavailable Oleghe, Efewongbe Attending Unavailable [place], Usman Attending Unavailable [place], Usman Referring Unavailable [place], Usman Primary Care Unavailable Allergies Allergy Classification Reported Allergen(s) Allergy Type Date of Onset Reaction(s) Facility (20 sources) Seasonal allergy; Translations: [SEASONAL ALLERGIES] Allergy to substance 2 Other: See Comments [facility] Medications Current Medications Medication Drug Class(es) Dates Sig (Normalized) Sig (Original) [id number] 200 actuat albuterol 0.09 mg/actuat metered dose inhaler (20 sources) beta2-Adrenergic Agonist Start: 03-28-2024 Albuterol Sulfate [...] TIMES A DAY August 29, 2017 5:18pm seizures Start: 08-23-2013 End: 09-01-2013 take 300 mg by mouth at bedtime Carbamazepine Disconti nued 300 MG PO AT BEDTIME 30 August 23, 2013 12:00am September 01, 2013 10:50am Start: 07-26-2013 End: 08-29-2017 take 1 tablet by mouth once daily Carbamazepine 200 MG tablet Discontinued 200 mg PO DAILY 30 0 September 01, 2013 11:50am August 29, 2017 [...] evening docusate sodium 50 mg / sennosides, fdc 8.6 mg oral tablet (9 sources) Start: 4 Sennosides-Docusate Sodium (Stimulant Laxative Plus) 8.6-50 mg Tablet Active 2 {tbl} PO TWICE A DAY 0 0 April 05, 2024 12:00am doxycycline hyclate 100 mg oral tablet (13 sources) Tetracycline-clas s Drug Start: 3 End: 3 take 1 tablet by mouth twice daily doxycycline (VIBRA-TABS) 100 mg tablet Indications: Sinobronchitis Take 1 tablet by mouth twice daily for 10 days. 20 tablet 0 08/24/2022 09/03/2022 Active Start: 10-19-2018 End: 06-23-2023 take 1 capsule by mouth twice daily Doxycycline Monohydrate 100 MG capsule Discontinued 100 mg PO TWICE A DAY 20 0 October 19, 2018 12:00am June 23, 2023 9:20pm Comment on above: Take 1 tablet by cj th twice daily for 10 days. ergocalciferol 1.25 mg oral capsule (9 sources) Provitamin D2 Compound Start: Ergocalciferol (Vitamin D2) (Vitamin D2) 1,250 mcg (50,000 unit) Capsule Active 1250 ug PO Q7D 5 30 0 April 05, 2024 12:00am fluticasone / salmeterol [...] tablet (20 sources) Start: 08-29-19 End: 03-05-20 24 take 1 tablet by mouth twice daily Levetiracetam 500 MG tablet Active 500 mg PO TWICE A DAY August 29, 2017 1:00am seizures Comment on above: Take 1 tablet by cj th twice daily. Take 1 tablet by cj th two times a day. vitamin b12 1 mg oral tablet (9 sources) Vitamin B12 Start: 04-05-20 take 1 tablet by mouth at breakfast Cyanocobalamin (Vitamin B-12) 1,000 mcg tablet Active 1000 ug PO WITH BREAKFAST 0 30 2 April 05, 2024 12:00am Completed/Discontinued Medications Medication Drug Class(es) Dates Sig (Normalized) Sig (Original) acetaminophen 650 mg rectal suppository (11 sources) Start: 08-02-2013 End: 09-01-2013 take 650 mg rectal route every eight hours as needed for fever Acetaminophen 650 MG Suppos. Discontinued 650 mg RECTAL Q8H as needed for Fever 14 0 August 02, 2013 1:00am September 01, 2013 11:49am acetaminophen 325 mg / oxyCODONE hydrochloride 5 mg oral tablet (11 sources) Opioid Agonist Start: 08-02-2013 End: 08-23-2013 Oxycodone-Acetamino phen 1 TABLET tablet Discontinued 1 {tbl} PO EVERY 6 HOURS NEEDED as needed for PAIN 14 0 August 02, 2013 1:00am August 23, 2013 7:04pm Start: 08-02-2013 End: 08-23-2013 take 1 tablet by mouth every six hours as needed Oxycodone-Acetaminophen Discontinued 1 TABLET PO EVERY 6 HOURS NEEDED 14 August 02, 2013 12:00am August 23, 2013 6:04pm Albuterol Sulfate 1 PUFF inhaler (9 sources) Start: 09-01-2017 End: 03-28-2024 Albuterol Sulfate 1 PUFF inh aler Discontinued 2 NMA INHALATION EVERY 4 HOURS NEEDED as needed for wheezing/shortness of breath 1 0 September 01, 2017 1:00am March 28, 2024 12:48pm Start: 09-01-2017 End: 03-28-2024 Albuterol Sulfate 1 PUFF inh aler Discontinued 2 NMA INHALATION EVERY 4 HOURS NEEDED as needed for wheezing/shortness of breath 1 September 01, 2017 1:00am March 28, 2024 12:48pm Budesonide-Formoterol (11 sources) Corticosteroid, beta2-Adrenergic Agonist Start: 09-01-2017 End: 06-23-2023 Budesonide-Formoterol 6 GM HFA aerosol inhaler Discontinued 10.2 g IH TWICE A DAY 1 0 September 01, 2017 1:00am June 23, 2023 9:20pm Start: 09-01-2017 End: 06-23-2023 Budesonide-Formoterol 6 GM H FA aerosol inhaler Discontinued 10.2 g IH TWICE A DAY 1 September 01, [...] bromide 0.042 mg/actuat metered dose nasal spray (12 sources) Anticholinergic Start: 09-01-2017 End: 11-08-2021 take 2 spray(s) nasal route three times daily ipratropium bromide (ATROVENT) 42 mcg (0.06 %) nasal spray use 2 (TWO) sprays in each nostril THREE TIMES DAILY. 0 09/01/2017 11/08/2021 Discontinued Start: 09-01-2017 End: 06-23-2023 Ipratropium [place] 1 SPRAY spray,non-aerosol Discontinued 2 NMA NASAL THREE TIMES A DAY 1 0 September 01, 2017 1:00am June 23, 2023 9:21pm Start: 09-01-2017 End: 06-23-2023 Ipratropium [place] Disconti nued 2 SPRAY NASAL THREE TIMES A DAY 1 September 01, 2017 12:00am June 23, 2023 8:21pm levothyroxine sodium 0.125 mg oral tablet (20 sources) l-Thyroxine Start: 06-25-2023 End: 03-28-2024 take 1 tablet by mouth once daily Levothyroxine 125 mcg Tablet Discontinued 125 ug PO DAILY@0600 30 30 2 June 25, 2023 1:00am March 28, 2024 [...] Thyroid meclizine hydrochloride 25 mg oral tablet (10 sources) Antiemetic Start: 06-25-20 End: 03-28-20 take 1 tablet by mouth three times daily as needed for dizziness Meclizine 25 mg Tablet Discontinued 25 mg PO 3 TIMES DAILY NEEDED as needed for Dizziness 30 0 June 25, 2023 1:00am March 28, 2024 12:47pm moxifloxacin 400 mg oral tablet (11 sources) Quinolone Antimicrobial Start: 08-02-19 14 End: 08-23-19 14 take 1 tablet by mouth once daily Moxifloxacin Hcl (Avelox) 400 MG tablet Discontinued 400 mg PO DAILY 3 August 02, 2013 1:00am August 23, 2013 7:04pm pantoprazole 20 mg delayed release oral tablet (11 sources) Proton Pump Inhibitor Start: 08-02-19 14 End: 08-23-19 14 take 1 tablet by mouth once daily Pantoprazole 20 MG tablet Discontinued 20 mg PO DAILY 30 August 02, 2013 1:00am August 23, 2013 [...] STOP promethazine hydrochloride 25 mg oral tablet (11 sources) Phenothiazine Start: 08-02-2013 End: 09-01-2013 take 1 tablet by mouth every four hours as needed for nausea Promethazine 25 MG tablet Discontinued 25 mg PO EVERY 4 HOURS NEEDED as needed for Nausea 30 0 August 02, 2013 1:00am September 01, 2013 11:49am warfarin sodium 6 mg oral tablet (20 sources) Vitamin K Antagonist Start: 08-23-2013 End: 09-01-2013 Warfarin (Jantoven) 5 MG tablet Discontinued 5 mg PO MoTuWeThFr@1700 30 0 August 23, 2013 1:00am September 01, 2013 11:48am Start: 08-23-2013 End: 09-01-2013 Warfarin (Jantoven) 6 MG tab let Discontinued 6 mg PO SuSa@1700 30 0 August 23, 2013 1:00am September 01, 2013 11:48am Problems Active Problems Problem Classification Problem Date Documented Da te Episodic/Chronic Acute and unspecified renal failure (11 sources) Acute renal failure syndrome; Translations: [Acute kidney failure, unspecified] 08-30-2017 Episodic Chronic obstructive pulmonary disease and bronchiectasis (20 sources) Emphysematous bronchitis; Translations: [Chronic obstructive pulmonary disease, unspecified] Onset: 12-02-2016 12-02-2016 Chronic Conditions associated with dizziness or vertigo (20 sources) Dizziness; Translations: [Dizziness and giddiness] Onset: 07-14-2023 06-23-2023 Episodic Delirium, dementia, and amnestic and other cognitive disorders (2 sources) Age-related physical debility; Translations: [Age-related physical debility] Onset: 01-01-2025 Chronic Disorders of lipid metabolism (1 source) Hyperlipidemia; Translations: [Hyperlipidemia, unspecified] 05-17-2023 Chronic Epilepsy; convulsions (20 sources) Generalized convulsive epilepsy; Translations: [Generalized idiopathic epilepsy and epileptic syndromes, not intractable, without status epilepticus] Onset: 10-02-2006 09-22-2016 Chronic Fracture of lower limb (11 sources) Closed fracture of fifth metatarsal bone; Translations: [Nondisplaced fracture of fifth metatarsal bone, right foot, initial encounter for closed fracture] 02-24-2023 Episodic Immunizations and screening for infectious disease (3 sources) Needs influenza immunization; Translations: [Encounter for immunization] Episodic Noninfectious gastroenteritis (11 sources) Gastroenteritis; Translations: [Noninfective gastroenteritis and colitis, unspecified] 08-30-2017 Episodic Other circulatory disease (4 sources) Suspected respiratory disease; Translations: [Other specified symptoms and signs involving the circulatory and respiratory systems] 09-28-2017 Episodic Other connective tissue disease (2 sources) Muscle wasting and atrophy, not elsewhere classified, right lower leg; Translations: [Muscle wasting and atrophy, not elsewhere classified, right lower leg] Onset: 01-01-2025 Episodic Other connective tissue disease (2 sources) Muscle wasting and atrophy, not elsewhere classified, [...] of breath] Episodic Other lower respiratory disease (11 sources) Hypoxia; Translations: [Hypoxemia] 09-29-2017 Episodic Other nervous system disorders (1 source) Polyneuropathy, unspecified; Translations: [Neuropathy] Onset: 07-19-2023 Chronic Other nervous system disorders (20 sources) H/O: brain disorder; Translations: [Personal history of other diseases of the nervous system and sense organs] Onset: 03-15-2018 03-15-2018 Episodic Other nervous system disorders (11 sources) H/O: epilepsy; Translations: [Personal history of [...] sinusitis, unspecified] Chronic Other upper respiratory infections (11 sources) Posterior rhinorrhea; Translations: [Postnasal drip] 09-28-2017 Episodic Paralysis (20 sources) Right hemiparesis; Translations: [Spastic hemiplegia affecting right dominant side] Onset: 06-27-2014 06-27-2014 Chronic Phlebitis; thrombophlebitis and thromboembolism (17 sources) Deep venous thrombosis of lower extremity; [...] Resolved: 12-02-2016 12-02-2016 Episodic Malaise and fatigue (13 sources) Asthenia; Translations: [Weakness] Onset: 04-05-2024 06-23-2023 [...] Facility Bilirubin directOrdered By: Jolly Macdonald on 03-18-2025 Bilirubin.direct [Mass/Vol] 0.12 mg/dL 0.00-0.30 [facility] Bilirubin, totalOrdered By: Jolly Macdonald on 03-18-2025 Bilirubin [Mass/Vol] 0.24 mg/dL 0.00-1.30 [facility] Laboratory - Chemistry and C hemistry - challengeOrdered By: Jolly Macdonald on 03-18-2025 AST [Catalytic activity/Vol] 18 U/L <38 [facility] Serum globulin measurementOr dered By: Jolly Macdonald on 03-18-2025 Globulin (S) [Mass/Vol] 3.0 g/dL 2.2-4.2 [facility] Serum or plasma alanine ty otransferase (ALT) measurementOrdered By: Jolly Macdonald on 03-18-2025 ALT [Catalytic activity/Vol] 15 U/L <47 [facility] Serum or plasma albumin marvin urement (mass/volume)Ordered By: Jolly Macdonald on 03-18-2025 Albumin [Mass/Vol] 3.5 g/dL 3.4-4.8 [facility] Serum or plasma alkaline macho sphatase measurementOrdered By: Jolly Macdonald on 03-18-2025 ALP [Catalytic activity/Vol] 67 U/L 40-129 [facility] Total proteinOrdered By: Salvador Macdonald on 03-18-2025 Protein [Mass/Vol] 6.5 g/dL 5.9-8.4 [facility] Vitamin B12 ser/plasOrdered By: Jolly Macdonald on 03-18-2025 Cobalamin (Vitamin B12) [Mass/Vol] 450 pg/mL 180-914 [facility] Absolute lymphocyte countOrd ered By: Micaela Holder on 02-18-2025 Lymphocytes Auto (Unsp spec) [#/Vol] 1.71 10*3/uL 0.83-4.51 [facility] Absolute neutrophil countOrd ered By: Micaela Holder on 02-18-2025 Neutrophils (Bld) [#/Vol] 3.2 10*3/uL 2.0-7.7 [facility] Anion gap in Serum or Plasma Ordered By: Micaela Holder on 02-18-2025 Anion gap [Moles/Vol] 11 mmol/L 5-15 [facility] Automated lymphocyte count a s percentage of total leukocytesOrdered By: Micaela Holder on 02-18-2025 Lymphocytes/100 WBC Auto (Unsp spec) 28.4 % 19-41 [facility] BUN/creatinine ratioOrdered By: Micaela Holder on 02-18-2025 Urea nitrogen/Creatinine [Mass ratio] 18.7 mg/mg 10-20 [facility] Basophil percentageOrdered B y: Micaela Holder on 02-18-2025 Basophils/100 WBC (Bld) 0.8 % 0-1 [facility] Bilirubin directOrdered By: Micaela Holder on 02-18-2025 Bilirubin.direct [Mass/Vol] 0.09 mg/dL 0.00-0.30 [facility] Bilirubin, totalOrdered By: Micaela Holder on 02-18-2025 Bilirubin [Mass/Vol] 0.21 mg/dL 0.00-1.30 [facility] Carbon dioxide, total [Moles /volume] in Central venous bloodOrdered By: Micaela Holder on 02-18-2025 CO2 [Moles/Vol] 20.9 mmol/L Low 21.0-32.0 [facility] Chloride assayOrdered By: Mylene Holder on 02-18-2025 Chloride [Moles/Vol] 108 mmol/L 98-108 [facility] Eosinophil percentageOrdered By: Micaela Holder on 02-18-2025 Eosinophils/100 WBC (Bld) 5.1 % High 0-5 [facility] Erythrocyte distribution wid th ratioOrdered By: Micaela Holder on 02-18-2025 Erythrocyte distribution width (RBC) [Ratio] 12.9 % 11.6-14.6 [facility] Erythrocyte distribution wid th standard deviationOrdered By: Micaela Holder on 02-18-2025 Erythrocyte distribution width (RBC) [Ratio] 47.1 fl High 35.1-43.9 [facility] Glomerular filtration rate ( GFR) estimation/1.73 sq m using serum, plasma, or whole bOrdered By: Micaela Holder on 02-18-2025 GFR/1.73 sq M.predicted among non-blacks MDRD (S/P/Bld) [Vol rate/Area] 74 mL/min/{1.73_m2} >60 [facility] Comment on above: mL/min/1.73m2 CKD-EP I Creatinine Equation (2020) Hematocrit Auto (Bld) [Volum e fraction]Ordered By: Micaela Holder on 02-18-2025 Hematocrit (Bld) [Volume fraction] 35.9 % Low 40-54 [facility] Hemoglobin measurementOrdere d By: Micaela Holder on 02-18-2025 Hemoglobin (Bld) [Mass/Vol] 11.8 g/dL Low 13.0-16.5 [facility] Immature granulocytes/100 WB C Auto (Bld)Ordered By: Micaela Holder on 02-18-2025 Immature granulocytes/100 WBC (Bld) 0.300 % 0.0-0.9 [facility] Comment on above: IG% - Immature Granu locytes (promyelocytes, myelocytes and metamyelocytes) > 1% indicates that a LEFT SHIFT is Present. Laboratory - Chemistry and C hemistry - challengeOrdered By: Micaela Holder on 02-18-2025 AST [Catalytic activity/Vol] 16 U/L <38 [facility] LevetiracetamOrdered By: Frank Holdre on 02-18-2025 levETIRAcetam [Mass/Vol] 16.9 ug/mL 10.0-40.0 [facility] Comment on above: Performed at: [facility] [place], [place] [id number] Director: Daniel Bailey MD, Phone: [phone] MCV (mean corpuscular volume ) determinationOrdered By: Micaela Holder on 02-18-2025 MCV (RBC) [Entitic vol] 98.6 fL High 80-94 [facility] Mean corpuscular hemoglobin (MCH) determinationOrdered By: Micaela Holder on 02-18-2025 MCH (RBC) [Entitic mass] 32.4 pg High 27.0-32.0 [facility] Mean corpuscular hemoglobin concentration (MCHC) determinationOrdered By: Micaela Holder on 02-18-2025 MCHC (RBC) [Mass/Vol] 32.9 g/dL 32-36 [facility] Mean platelet volume determi nationOrdered By: Micaela Holder on 02-18-2025 Platelet mean volume (Bld) [Entitic vol] 9.9 fL 6.2-12.0 [facility] Monocyte percentageOrdered B y: Micaela Holder on 02-18-2025 Monocytes/100 WBC (Bld) 11.6 % High 0-10 [facility] Neutrophil percentageOrdered By: Micaela Holder on 02-18-2025 Neutrophils/100 WBC (Bld) 53.8 % 47-70 [facility] Nucleated red blood cell per centageOrdered By: Micaela Holder on 02-18-2025 Nucleated RBC/100 WBC (Bld) [Ratio] 0 % 0-5 [facility] Platelet countOrdered By: Mylene Holder on 02-18-2025 Platelets (Bld) [#/Vol] 243 10*3/uL 150-450 [facility] Potassium measurement (mass/ volume)Ordered By: Micaela Holder on 02-18-2025 Potassium (Unsp spec) [Mass/Vol] 4.2 mmol/L 3.3-5.1 [facility] RBC Auto (Bld) [#/Vol]Ordere d By: Micaela Holder on 02-18-2025 RBC (Bld) [#/Vol] 3.64 10*6/uL Low 4.6-6.2 [facility] Serum creatinine measurement (mass/volume)Ordered By: Micaela Holder on 02-18-2025 Creatinine [Mass/Vol] 1.06 mg/dL 0.70-1.20 [facility] Serum globulin measurementOr dered By: Micaela Holder on 02-18-2025 Globulin (S) [Mass/Vol] 2.9 g/dL 2.2-4.2 [facility] Serum glucose measurement (m ass/volume)Ordered By: Micaela Holder on 02-18-2025 Glucose [Mass/Vol] 103 mg/dL High 70-99 [facility] Serum or plasma alanine ty otransferase (ALT) measurementOrdered By: Micaela Holder on 02-18-2025 ALT [Catalytic activity/Vol] 16 U/L <47 [facility] Serum or plasma albumin marvin urement (mass/volume)Ordered By: Micaela Holder on 02-18-2025 Albumin [Mass/Vol] 3.7 g/dL 3.4-4.8 [facility] Serum or plasma alkaline macho sphatase measurementOrdered By: Micaela Holder on 02-18-2025 ALP [Catalytic activity/Vol] 76 U/L 40-129 [facility] Serum or plasma calcium marvin urement (mass/volume)Ordered By: Micaela Holder on 02-18-2025 Calcium [Mass/Vol] 8.9 mg/dL 7.6-11.0 [facility] Serum or plasma carbamazepin e level (mass/volume)Ordered By: Micaela Holder on 02-18-2025 carBAMazepine [Mass/Vol] 10.7 ug/mL 4.0-12.0 [facility] Serum or plasma urea nitroge n measurement (mass/volume)Ordered By: Micaela Holder on 02-18-2025 Urea nitrogen [Mass/Vol] 20 mg/dL High 4-19 [facility] Sodium levelOrdered By: Jose Holder on 02-18-2025 Sodium [Moles/Vol] 140 mmol/L 133-145 [facility] TSH DL <= 0.005 mIU/L QnOrde red By: Micaela Holder on 02-18-2025 TSH Qn 4.240 uIU/mL High 0.300-4.200 [facility] Total proteinOrdered By: Frank sebastiánjesi Holder on 02-18-2025 Protein [Mass/Vol] 6.6 g/dL 5.9-8.4 [facility] Vitamin B12 ser/plasOrdered By: Micaela Holder on 02-18-2025 Cobalamin (Vitamin B12) [Mass/Vol] 429 pg/mL 180-914 [facility] White blood cell (WBC) count Ordered By: Micaela Holder on 02-18-2025 WBC (Bld) [#/Vol] 6.0 10*3/uL 4.4-11.0 [facility] Bilirubin directOrdered By: Jolly Macdonald on 01-14-2025 Bilirubin.direct [Mass/Vol] mg/dL 0.00-0.30 [facility] Bilirubin, totalOrdered By: Jolly Macdonald on 01-14-2025 Bilirubin [Mass/Vol] 0.18 mg/dL 0.00-1.30 [facility] Laboratory - Chemistry and C hemistry - challengeOrdered By: Jolly Macdonald on 01-14-2025 AST [Catalytic activity/Vol] 19 U/L <38 [facility] LevetiracetamOrdered By: Salvador Macdonald on 01-14-2025 levETIRAcetam [Mass/Vol] 15.6 ug/mL 10.0-40.0 [facility] Comment on above: Performed at: [facility] Kathi etienne [address] [id number] Director: Daniel Bailey MD, Phone: [phone] Serum globulin measurementOr dered By: Jolly Macdonald on 01-14-2025 Globulin (S) [Mass/Vol] 2.9 g/dL 2.2-4.2 [facility] Serum or plasma alanine yt otransferase (ALT) measurementOrdered By: Jolly Macdonald on 01-14-2025 ALT [Catalytic activity/Vol] 14 U/L <47 [facility] Serum or plasma albumin marvin urement (mass/volume)Ordered By: Jolly Macdonald on 01-14-2025 Albumin [Mass/Vol] 3.5 g/dL 3.4-4.8 [facility] Serum or plasma alkaline macho sphatase measurementOrdered By: Jolly Macdonald on 01-14-2025 ALP [Catalytic activity/Vol] 79 U/L 40-129 [facility] Serum or plasma carbamazepin e level (mass/volume)Ordered By: Jolly Macdonald on 01-14-2025 carBAMazepine [Mass/Vol] 10.8 ug/mL 4.0-12.0 [facility] Total proteinOrdered By: Salvador Macdonald on 01-14-2025 Protein [Mass/Vol] 6.5 g/dL 5.9-8.4 [facility] Vitamin B12 ser/plasOrdered By: Jolly Macdonald on 01-14-2025 Cobalamin (Vitamin B12) [Mass/Vol] 431 pg/mL 180-914 [facility] TSH DL <= 0.005 mIU/L QnOrde red By: Micaela Holder on 01-07-2025 TSH Qn 3.420 uIU/mL 0.300-4.200 [facility] Bilirubin directOrdered By: Jolly Macdonald on 12-17-2024 Bilirubin.direct [Mass/Vol] mg/dL 0.00-0.30 [facility] Bilirubin, totalOrdered By: Jolly Macdonald on 12-17-2024 Bilirubin [Mass/Vol] 0.19 mg/dL 0.00-1.30 [facility] Laboratory - Chemistry and C hemistry - challengeOrdered By: Jolly Macdonald on 12-17-2024 AST [Catalytic activity/Vol] 18 U/L <38 [facility] Serum globulin measurementOr dered By: Jolly Macdonald on 12-17-2024 Globulin (S) [Mass/Vol] 2.9 g/dL 2.2-4.2 [facility] Serum or plasma alanine ty otransferase (ALT) measurementOrdered By: Jolly Macdonald on 12-17-2024 ALT [Catalytic activity/Vol] 18 U/L <47 [facility] Serum or plasma albumin marvin urement (mass/volume)Ordered By: Jolly Macdonald on 12-17-2024 Albumin [Mass/Vol] 3.7 g/dL 3.4-4.8 [facility] Serum or plasma alkaline macho sphatase measurementOrdered By: Jolly Macdonald on 12-17-2024 ALP [Catalytic activity/Vol] 85 U/L 40-129 [facility] Total proteinOrdered By: Salvador Macdonald on 12-17-2024 Protein [Mass/Vol] 6.6 g/dL 5.9-8.4 [facility] Vitamin B12 ser/plasOrdered By: Jolly Macdonald on 12-17-2024 Cobalamin (Vitamin B12) [Mass/Vol] 455 pg/mL 180-914 [facility] TSH DL <= 0.005 mIU/L QnOrde red By: Micaela Holder on 11-26-2024 TSH Qn 3.470 uIU/mL 0.300-4.200 [facility] Bilirubin directOrdered By: Jolly Macdonald on 11-19-2024 Bilirubin.direct [Mass/Vol] 0.11 mg/dL 0.00-0.30 [facility] Bilirubin, totalOrdered By: Jolly Macdonald on 11-19-2024 Bilirubin [Mass/Vol] 0.20 mg/dL 0.00-1.30 [facility] Laboratory - Chemistry and C hemistry - challengeOrdered By: Jolly Macdonald on 11-19-2024 AST [Catalytic activity/Vol] 18 U/L <38 [facility] Serum globulin measurementOr dered By: Jolly Macdonald on 11-19-2024 Globulin (S) [Mass/Vol] 3.1 g/dL 2.2-4.2 [facility] Serum or plasma alanine ty otransferase (ALT) measurementOrdered By: Jolly Macdonald on 11-19-2024 ALT [Catalytic activity/Vol] 12 U/L <47 [facility] Serum or plasma albumin marvin urement (mass/volume)Ordered By: Jolly Macdonald on 11-19-2024 Albumin [Mass/Vol] 3.6 g/dL 3.4-4.8 [facility] Serum or plasma alkaline macho sphatase measurementOrdered By: Jolly Macdonald on 11-19-2024 ALP [Catalytic activity/Vol] 75 U/L 40-129 [facility] Total proteinOrdered By: Salvador Macdonald on 11-19-2024 Protein [Mass/Vol] 6.7 g/dL 5.9-8.4 [facility] Vitamin B12 ser/plasOrdered By: Jolly Macdonald on 11-19-2024 Cobalamin (Vitamin B12) [Mass/Vol] 521 pg/mL 180-914 [facility] Absolute lymphocyte countOrd ered By: Jolly Macdonald on 10-15-2024 Lymphocytes Auto (Unsp spec) [#/Vol] 1.44 10*3/uL 0.83-4.51 [facility] Absolute neutrophil countOrd ered By: Jolly Macdonald on 10-15-2024 Neutrophils (Bld) [#/Vol] 2.5 10*3/uL 2.0-7.7 [facility] Anion gap in Serum or Plasma Ordered By: Jolly Macdonald on 10-15-2024 Anion gap [Moles/Vol] 11 mmol/L 5-15 [facility] Automated lymphocyte count a s percentage of total leukocytesOrdered By: Jolly Macdonald on 10-15-2024 Lymphocytes/100 WBC Auto (Unsp spec) 28.9 % 19-41 [facility] BUN/creatinine ratioOrdered By: Jolly Macdonald on 10-15-2024 Urea nitrogen/Creatinine [Mass ratio] 12.1 mg/mg 10-20 [facility] Basophil percentageOrdered B y: Jolly Macdonald on 10-15-2024 Basophils/100 WBC (Bld) 0.8 % 0-1 [facility] Bilirubin directOrdered By: Jolly Macdonald on 10-15-2024 Bilirubin.direct [Mass/Vol] 0.09 mg/dL 0.00-0.30 [facility] Bilirubin, totalOrdered By: Jolly Macdonald on 10-15-2024 Bilirubin [Mass/Vol] 0.24 mg/dL 0.00-1.30 [facility] Carbon dioxide, total [Moles /volume] in Central venous bloodOrdered By: Jolly Macdonald on 10-15-2024 CO2 [Moles/Vol] 21.3 mmol/L 21.0-32.0 [facility] Chloride assayOrdered By: Saroj Macdonald on 10-15-2024 Chloride [Moles/Vol] 108 mmol/L 98-108 [facility] Eosinophil percentageOrdered By: Jolly Macdonald on 10-15-2024 Eosinophils/100 WBC (Bld) 7.6 % High 0-5 [facility] Erythrocyte distribution wid th (RBC) [Ratio]Ordered By: Jolly Macdonald on 10-15-2024 Erythrocyte distribution width (RBC) [Entitic vol] 45.4 fL High 35.1-43.9 [facility] Erythrocyte distribution wid th ratioOrdered By: Jolly Macdonald on 10-15-2024 Erythrocyte distribution width (RBC) [Ratio] 12.7 % 11.6-14.6 [facility] Erythrocyte distribution wid th standard deviationOrdered By: Jolly Macdonald on 10-15-2024 Erythrocyte distribution width (RBC) [Ratio] 45.4 fl High 35.1-43.9 [facility] GFR/1.73 sq M.predicted yang g non-blacks MDRD (S/P/Bld) [Vol rate/Area]Ordered By: Jolly Macdonald on 10-15-2024 Estimated GFR (MDRD) Non-Af Amer 78 >60 [facility] Comment on above: mL/min/1.73m2 CKD-EP I Creatinine Equation (2020) Glomerular filtration rate ( GFR) estimation/1.73 sq m using serum, plasma, or whole bOrdered By: Jolly Macdonald on 10-15-2024 GFR/1.73 sq M.predicted among non-blacks MDRD (S/P/Bld) [Vol rate/Area] 78 mL/min/{1.73_m2} >60 [facility] Comment on above: mL/min/1.73m2 CKD-EP I Creatinine Equation (2020) Hematocrit Auto (Bld) [Volum e fraction]Ordered By: Jolly Macdonald on 10-15-2024 Hematocrit (Bld) [Volume fraction] 33.6 % Low 40-54 [facility] Hemoglobin measurementOrdere d By: Jolly Macdonald on 10-15-2024 Hemoglobin (Bld) [Mass/Vol] 11.0 g/dL Low 13.0-16.5 [facility] Immature granulocytes/100 WB C Auto (Bld)Ordered By: Jolly Macdonald on 10-15-2024 Immature granulocytes/100 WBC (Bld) 0.400 % 0.0-0.9 [facility] Comment on above: IG% - Immature Granu locytes (promyelocytes, myelocytes and metamyelocytes) > 1% indicates that a LEFT SHIFT is Present. Laboratory - Chemistry and C hemistry - challengeOrdered By: Jolly Macdonald on 10-15-2024 AST [Catalytic activity/Vol] 19 U/L <38 [facility] Lymphocytes Auto (Unsp spec) [#/Vol]Ordered By: Jolly Macdonald on 10-15-2024 Lymphocytes (Bld) [#/Vol] 1.44 10*3/uL 0.83-4.51 [facility] Lymphocytes/100 WBC Auto (Un sp spec)Ordered By: Jolly Macdonald on 10-15-2024 Lymphocytes/100 WBC (Bld) 28.9 % 19-41 [facility] MCV (mean corpuscular volume ) determinationOrdered By: Jolly Macdonald on 10-15-2024 MCV (RBC) [Entitic vol] 98.2 fL High 80-94 [facility] Mean corpuscular hemoglobin (MCH) determinationOrdered By: Jolly Macdonald on 10-15-2024 MCH (RBC) [Entitic mass] 32.2 pg High 27.0-32.0 [facility] Mean corpuscular hemoglobin concentration (MCHC) determinationOrdered By: Jolly Macdonald on 10-15-2024 MCHC (RBC) [Mass/Vol] 32.7 g/dL 32-36 [facility] Mean platelet volume determi nationOrdered By: Jolly Macdonald on 10-15-2024 Platelet mean volume (Bld) [Entitic vol] 10.4 fL 6.2-12.0 [facility] Monocyte percentageOrdered B y: Jolly Macdonald on 10-15-2024 Monocytes/100 WBC (Bld) 13.1 % High 0-10 [facility] Neutrophil percentageOrdered By: Jolly Macdonald on 10-15-2024 Neutrophils/100 WBC (Bld) 49.2 % 47-70 [facility] Nucleated red blood cell per centageOrdered By: Jolly Macdonald on 10-15-2024 Nucleated RBC/100 WBC (Bld) [Ratio] 0 % 0-5 [facility] Platelet countOrdered By: Saroj Macdonald on 10-15-2024 Platelets (Bld) [#/Vol] 226 10*3/uL 150-450 [facility] Potassium (Unsp spec) [Mass/ Vol]Ordered By: Jolly Macdonald on 10-15-2024 Potassium [Moles/Vol] 4.0 mmol/L 3.3-5.1 [facility] Potassium measurement (mass/ volume)Ordered By: Jolly Macdonald on 10-15-2024 Potassium (Unsp spec) [Mass/Vol] 4.0 mmol/L 3.3-5.1 [facility] RBC Auto (Bld) [#/Vol]Ordere d By: Jolly Macdonald on 10-15-2024 RBC (Bld) [#/Vol] 3.42 10*6/uL Low 4.6-6.2 [facility] Serum creatinine measurement (mass/volume)Ordered By: Jolly Macdonald on 10-15-2024 Creatinine [Mass/Vol] 1.01 mg/dL 0.70-1.20 [facility] Serum globulin measurementOr dered By: Jolly Macdonald on 10-15-2024 Globulin (S) [Mass/Vol] 2.9 g/dL 2.2-4.2 [facility] Serum glucose measurement (m ass/volume)Ordered By: Jolly Macdonald on 10-15-2024 Glucose [Mass/Vol] 102 mg/dL High 70-99 [facility] Serum or plasma alanine ty otransferase (ALT) measurementOrdered By: Jolly Macdonald on 10-15-2024 ALT [Catalytic activity/Vol] 15 U/L <47 [facility] Serum or plasma albumin marvin urement (mass/volume)Ordered By: Jolly Macdonald on 10-15-2024 Albumin [Mass/Vol] 3.5 g/dL 3.4-4.8 [facility] Serum or plasma alkaline macho sphatase measurementOrdered By: Jolly Macdonald on 10-15-2024 ALP [Catalytic activity/Vol] 79 U/L 40-129 [facility] Serum or plasma calcium marvin urement (mass/volume)Ordered By: Jolly Macdonald on 10-15-2024 Calcium [Mass/Vol] 8.6 mg/dL 7.6-11.0 [facility] Serum or plasma urea nitroge n measurement (mass/volume)Ordered By: Jolly Macdonald on 10-15-2024 Urea nitrogen [Mass/Vol] 12 mg/dL 4-19 [facility] Sodium levelOrdered By: Larissa Macdonald on 10-15-2024 Sodium [Moles/Vol] 141 mmol/L 133-145 [facility] TSH DL <= 0.005 mIU/L QnOrde red By: Jolly Macdonald on 10-15-2024 Thyroid Stimulating Hormone (TSH) 1.270 uIU/mL 0.300-4.200 [facility] TSH Qn 1.270 uIU/mL 0.300-4.200 [facility] Total proteinOrdered By: Salvador Macdonald on 10-15-2024 Protein [Mass/Vol] 6.4 g/dL 5.9-8.4 [facility] Vitamin B12 ser/plasOrdered By: Jolly Macdonald on 10-15-2024 Cobalamin (Vitamin B12) [Mass/Vol] 533 pg/mL 180-914 [facility] White blood cell (WBC) count Ordered By: Jolly Macdonald on 10-15-2024 WBC (Bld) [#/Vol] 5.0 10*3/uL 4.4-11.0 [facility] Calculated very low density lipoprotein (VLDL) cholesterol measurementOrdered By: Micaela Holder on 10-04-2024 Calculated very low density lipoprotein (VLDL) cholesterol measurement 9 mg/dL - [facility] VLDL Cholesterol 9 mg/dL - [facility] LDL calc ser/plasOrdered By: Micaela Holder on 10-04-2024 Cholesterol in LDL [Mass/Vol] 113 mg/dL [facility] Comment on above: Bbxoasjfjo=113-769 m g/dL & Higher Zort=773 mg/dL or greater LDL Cholesterol, Calculated 113 mg/dL [facility] Comment on above: Oikkoshycw=886-820 m g/dL & Higher Axah=734 mg/dL or greater Screening total cholesterol/ high density lipoprotein (HDL) cholesterol ratioOrdered By: Micaela Holder on 10-04-2024 Cholesterol.total/Choles terol in HDL [Mass ratio] 2.88 {ratio} [facility] Serum or plasma cholesterol in HDL measurement (mass/volume)Ordered By: Micaela Holder on 10-04-2024 Cholesterol in HDL [Mass/Vol] 65 mg/dL >40 [facility] Comment on above: National Cholesterol Education Program (NCEP) guidelines:<40 mg/dL: Low HDL-cholesterol (major risk factor for CHD)>= 60 mg/dL: High HDL-cholesterol (negative risk factor for CHD)HDL-cholesterol is affected by a number of factors, e.g. smoking, exercise, hormones, sex and age. Serum or plasma cholesterol measurement (mass/volume)Ordered By: Micaela Holder on 10-04-2024 Cholesterol [Mass/Vol] 187 mg/dL <201 [facility] Comment on above: Cholesterol level, D esirable <200 mg/dLBorderline high cholesterol 200-239 mg/dLHigh cholesterol >=240 mg/dLRecommendations of the NCEP Adult Treatment Panel for the following risk-cutoff thresholds for the [place] population. Triglycerides measurementOrd ered By: Micaela Holder on 10-04-2024 Triglyceride [Mass/Vol] 46 mg/dL <199 [facility] Comment on above: The drugs N-Acetylcy steine and Metamizole may falsely depress this assay. Normal range: <150 mg/dLBorderline High: 150-199 mg/dLHigh: 200-499 mg/dLVery High: >500 mg/dL Bilirubin directOrdered By: Micaela Holder on 09-17-2024 Bilirubin.direct [Mass/Vol] 0.09 mg/dL 0.00-0.30 [facility] Bilirubin, totalOrdered By: Micaela Holder on 09-17-2024 Bilirubin [Mass/Vol] 0.18 mg/dL 0.00-1.30 [facility] Laboratory - Chemistry and C hemistry - challengeOrdered By: Micaela Holder on 09-17-2024 AST [Catalytic activity/Vol] 19 U/L <38 [facility] Serum globulin measurementOr dered By: Micaela Holder on 09-17-2024 Globulin (S) [Mass/Vol] 3.0 g/dL 2.2-4.2 [facility] Serum or plasma alanine ty otransferase (ALT) measurementOrdered By: Micaela Holder on 09-17-2024 ALT [Catalytic activity/Vol] 15 U/L <47 [facility] Serum or plasma albumin marvin urement (mass/volume)Ordered By: Micaela Holder on 09-17-2024 Albumin [Mass/Vol] 3.4 g/dL 3.4-4.8 [facility] Serum or plasma alkaline macho sphatase measurementOrdered By: Micaela Holder on 09-17-2024 ALP [Catalytic activity/Vol] 74 U/L 40-129 [facility] Total proteinOrdered By: Frank Holder on 09-17-2024 Protein [Mass/Vol] 6.4 g/dL 5.9-8.4 [facility] Vitamin B12 ser/plasOrdered By: Micaela Holder 09-17-2024 Cobalamin (Vitamin B12) [Mass/Vol] 603 pg/mL 180-914 [facility] Serum or plasma thyroid stim ulating hormone (TSH) measurement (units/volume)Ordered By: Micaela Holder on 09-03-2024 TSH Qn 18.400 uIU/mL High 0.358-3.740 [facility] TSH QnOrdered By: Micaela Holder on 09-03-2024 Thyroid Stimulating Hormone (TSH) 18.400 uIU/mL High 0.358-3.740 [facility] Bilirubin directOrdered By: Micaela Holder on 08-20-2024 Bilirubin.direct [Mass/Vol] 0.11 mg/dL 0.00-0.30 [facility] Bilirubin, totalOrdered By: Micaela Holder on 08-20-2024 Bilirubin [Mass/Vol] 0.30 mg/dL 0.20-1.00 [facility] Comment on above: For patients on eltr ombopag therapy, use of Dimension [place] TBIL is not recommended. Laboratory - Chemistry and C hemistry - challengeOrdered By: Micaela Holder on 08-20-2024 AST [Catalytic activity/Vol] 24 U/L 15-37 [facility] Serum globulin measurementOr dered By: Micaela Holder on 08-20-2024 Globulin (S) [Mass/Vol] 3.8 g/dL 2.2-4.2 [facility] Serum or plasma alanine ty otransferase (ALT) measurementOrdered By: Micaela Holder on 08-20-2024 ALT [Catalytic activity/Vol] 38 U/L 16-61 [facility] Serum or plasma albumin marvin urement (mass/volume)Ordered By: Micaela Holder on 08-20-2024 Albumin [Mass/Vol] 3.0 g/dL Low 3.2-5.0 [facility] Serum or plasma alkaline macho sphatase measurementOrdered By: Micaela Holder on 08-20-2024 ALP [Catalytic activity/Vol] 86 U/L 45-117 [facility] Total proteinOrdered By: Frank Holder on 08-20-2024 Protein [Mass/Vol] 6.8 g/dL 6.4-8.2 [facility] Vitamin B12 measurementOrder ed By: Micaela Holder on 08-20-2024 Cobalamin (Vitamin B12) [Mass/Vol] 1165 pg/mL High 211-911 [facility] 42-TV-Yaogxum DOrdered By: Haroon Holder on 07-23-2024 Vitamin D 25-Hydroxy 46.8 ng/mL [facility] Comment on above: Vitamin D 25(OH) Sta tus Range Deficiency <20 ng/mL (50nmol/L) Insufficiency 20 - 30 ng/mL (50 - 75 nmol/L) Sufficiency 30 - 100 ng/mL (75 - 250 nmol/L) Toxicity >100 ng/mL (>250 nmol/L) Bilirubin directOrdered By: Micaela Holder on 07-23-2024 Bilirubin.direct [Mass/Vol] 0.06 mg/dL 0.00-0.30 [facility] Bilirubin, totalOrdered By: Micaela Holder on 07-23-2024 Bilirubin [Mass/Vol] 0.30 mg/dL 0.20-1.00 [facility] Comment on above: For patients on eltr ombopag therapy, use of Dimension [place] TBIL is not recommended. Laboratory - Chemistry and C hemistry - challengeOrdered By: Micaela Holder on 07-23-2024 AST [Catalytic activity/Vol] 16 U/L 15-37 [facility] LevetiracetamOrdered By: Frank Holder on 07-23-2024 Levetiracetam (Keppra) Level 14.1 ug/mL 10.0-40.0 [facility] Comment on above: Performed at: [address] [id number] Director: Daniel Bailey MD, Phone: [phone] Serum globulin measurementOr dered By: Micaela Holder on 07-23-2024 Globulin (S) [Mass/Vol] 3.7 g/dL 2.2-4.2 [facility] Serum or plasma alanine ty otransferase (ALT) measurementOrdered By: Micaela Holder on 07-23-2024 ALT [Catalytic activity/Vol] 26 U/L 16-61 [facility] Serum or plasma albumin marvin urement (mass/volume)Ordered By: Micaela Holder on 07-23-2024 Albumin [Mass/Vol] 2.9 g/dL Low 3.2-5.0 [facility] Serum or plasma alkaline macho sphatase measurementOrdered By: Micaela Holder on 07-23-2024 ALP [Catalytic activity/Vol] 70 U/L 45-117 [facility] TSH QnOrdered By: Micaela Holder on 07-23-2024 Thyroid Stimulating Hormone (TSH) 18.700 uIU/mL High 0.358-3.740 [facility] Total proteinOrdered By: Frank Holder on 07-23-2024 Protein [Mass/Vol] 6.6 g/dL 6.4-8.2 [facility] Vitamin B12 measurementOrder ed By: Micaela Holder on 07-23-2024 Cobalamin (Vitamin B12) [Mass/Vol] 1011 pg/mL High 211-911 [facility] carBAMazepine [Mass/Vol]Orde red By: Micaela Holder on 07-23-2024 Carbamazepine (Tegretol) Level 9.6 ug/mL 4.0-12.0 [facility] CNPNon 07-02-2024 [facility] Telephone (FAMWS) J LUIS MADERA ([id number]) 1950 M Date Time Provider Department 07/02/24 USMAN PATEL [facility] During your visit today, we recorded the following information about you: Norma Rogers MA 07/02/2024 9:25 AM Signed Type of letter/form/fax request - order from [employer] [facility] Form received from fax on 1 floor and placed on MD desk (Dr. Patel) for completion. Completed form needs to be faxed to [employer] at [phone]. Route to [place] when form completed for processing Julieta Mckay MA 07/02/2024 11:53 AM Signed Form signed and faxed back to number below. Julieta Mckay MA Allergies As of Date: 07/02/2024 Noted Allergy Reaction SEASONAL ALLERGIES 03/13/2012 14 - Other: See Comments Date Reviewed: 10/20/2023 Reviewed by: Julieta Mckay MA - Fully Assessed Reason for Visit: Forms [973] Cmt: 90 day order for [employer] Prescriptions as of 07/02/2024 - levETIRAcetam (KEPPRA) [...] Encounter Status:Closed by JULIETA MCKAY on 07/02/24 [facility] 05-09-2024 [place] Telephone ([facility]) J LUIS MADERA ([id number]) 1950 M Date Time Provider Department 05/09/24 USMAN PATEL During your visit today, we recorded the following information about you: Julieta Mckay MA 05/09/2024 1:27 PM Signed Type of form: 90 day order for Adult Day Care Services through [employer] Form received via fax When form is completed, Fax form to [phone] Form has been forwarded to Physician Desk: ALLISON Velazquez Kathryn, MA 05/10/2024 9:00 AM Signed Faxed. Norma Rogers MA Allergies As of Date: 05/09/2024 Noted Allergy Reaction SEASONAL ALLERGIES 03/13/2012 14 - Other: See Comments Date Reviewed: 10/20/2023 Reviewed by: Julieta Mckay MA - Fully Assessed Reason for Visit: Forms [913] Cmt: [facility] Prescriptions as of 05/10/2024 - levETIRAcetam (KEPPRA) [...] Status:Closed by NORMA ROGERS on 05/10/24 Normal [facility] Basic Metabolic Profile (BMP )on 04-04-2024 BUN/CRE 19.7 RATIO Normal 10-20 [facility] Comment on above: Performed By: #### L 400.0001 #### [facility] [address] [place], [address] CA,Total 9.0 mg/dL Normal 8.5-10.1 [facility] Comment on above: Performed By: #### L 400.0001 #### [facility] [address] [place], [address] Chloride [Moles/Vol] 108 mmol/L High 98-107 [facility] Comment on above: Performed By: #### L 400.0001 #### [facility] [address] [place], [address] CO2 [Moles/Vol] 24.0 mmol/L Normal 21.0-32.0 [facility] Comment on above: Performed By: #### L 400.0001 #### [facility] [address] [place], [address] Creatinine [Mass/Vol] 0.92 mg/dL Normal 0.70-1.30 [facility] Comment on above: Result Comment: The validity of the calculated GFR GFRAA in patients over 70 years has not been determined. Clinical correlation is essential. Performed By: #### L 400.0001 #### [facility] [address] [place], [address] ECRCL 71.03 ml/min Normal [facility] Comment on above: Performed By: #### L 400.0001 #### [facility] [address] [place], [address] EST GFR - AA 104 mL/min Normal >60 [facility] Comment on above: Result Comment: Afri can [place]ian GFR Calc Performed By: #### L 400.0001 #### [facility] [address] [place], [address] GAP 5 Normal 5-15 [facility] Comment on above: Performed By: #### L 400.0001 #### [facility] [address] [place], [address] GFR/1.73 sq M.predicted among non-blacks MDRD (S/P/Bld) [Vol rate/Area] 86 mL/min/{1.73_m2} Normal >60 [facility] Comment on above: Result Comment: Non- GFR Calc Performed By: #### L 400.0001 #### [facility] [address] [place], [address] Glucose [Mass/Vol] 111 mg/dL High 74-106 [facility] Comment on above: Result Comment: Fast ing Glucose result from 100 to 125 mg/dL suggests IMPAIRED HOMEOSTASIS per A.D.A. criteria. Performed By: #### L 400.0001 #### [facility] [address] [place], [address] Potassium [Moles/Vol] 4.3 mmol/L Normal 3.5-5.1 [facility] Comment on above: Performed By: #### L 400.0001 #### [facility] [address] [place], [address] Sodium [Moles/Vol] 137 mmol/L Normal 136-145 [facility] Comment on above: Performed By: #### L 400.0001 #### [facility] [address] [place], [address] Urea nitrogen [Mass/Vol] 18 mg/dL Normal 7-18 [facility] Comment on above: Performed By: #### L [id number] #### [facility] [address] [place], [address] CBC W/Diff, Automatedon 03-17 Absolute Lymph 1.54 X10 3/uL Normal 0.83-4.51 [facility] Comment on above: Performed By: #### L 500.2500, L100.0100 ####[facility] [address] [place], [address] Absolute Neut 5.4 X10 3/uL Normal 2.0-7.7 [facility] Comment on above: Performed By: #### L 500.2500, L100.0100 ####[facility] [address] [place], [address] Basophils/100 WBC (Bld) 1.0 % Normal 0-1 [facility] Comment on above: Performed By: #### L 500.2500, L100.0100 ####[facility] [address] [place], [address] Eosinophils/100 WBC (Bld) 2.3 % Normal 0-5 [facility] Comment on above: Performed By: #### L 500.2500, L100.0100 ####[facility] [address] [place], [address] Erythrocyte distribution width (RBC) [Ratio] 12.8 % Normal 11.6-14.6 [facility] Comment on above: Performed By: #### L 500.2500, L100.0100 ####[facility] [address] [place], [address] Hematocrit (Bld) [Volume fraction] 39.3 % Low 40-54 [facility] Comment on above: Performed By: #### L 500.2500, L100.0100 ####[facility] [address] [place], [address] Hemoglobin (Bld) [Mass/Vol] 12.6 g/dL Low 13.0-16.5 [facility] Comment on above: Performed By: #### L 500.2500, L100.0100 ####[facility] [address] [place], [address] IG% 0.700 Normal 0.0-0.9 [facility] Comment on above: Result Comment: IG% - Immature Granulocytes (promyelocytes, myelocytes and metamyelocytes) > 1% indicates that a LEFT SHIFT is Present. Performed By: #### L 500.2500, L100.0100 ####[facility] [address] [place], [address] Lymphocytes/100 WBC (Bld) 18.9 % Low 19-41 [facility] Comment on above: Performed By: #### L 500.2500, L100.0100 ####[facility] [address] [place], [address] MCH (RBC) [Entitic mass] 31.3 pg Normal 27.0-32.0 [facility] Comment on above: Performed By: #### L 500.2500, L100.0100 ####[facility] [address] [place], [address] MCHC (RBC) [Mass/Vol] 32.1 g/dL Normal 32-36 [facility] Comment on above: Performed By: #### L 500.2500, L100.0100 ####[facility] [address] [place], [address] MCV (RBC) [Entitic vol] 97.5 fL High 80-94 [facility] Comment on above: Performed By: #### L 500.2500, L100.0100 ####[facility] [address] [place], [address] Monocytes/100 WBC (Bld) 10.6 % High 0-10 [facility] Comment on above: Performed By: #### L 500.2500, L100.0100 ####[facility] [address] [place], [address] Neutrophils/100 WBC (Bld) 66.5 % Normal 47-70 [facility] Comment on above: Performed By: #### L 500.2500, L100.0100 ####[facility] [address] [place], [address] Nucleated RBC (Bld) [#/Vol] 0 10*3/uL Normal 0-5 [facility] Comment on above: Performed By: #### L 500.2500, L100.0100 ####[facility] [address] [place], [address] Platelet mean volume (Bld) [Entitic vol] 9.9 fL Normal 6.2-12.0 [facility] Comment on above: Performed By: #### L 500.2500, L100.0100 ####[facility] [address] [place], [address] Platelets (Bld) [#/Vol] 262 10*3/uL Normal 150-450 [facility] Comment on above: Performed By: #### L 500.2500, L100.0100 ####[facility] [address] [place], [address] RBC (Bld) [#/Vol] 4.03 10*6/uL Low 4.6-6.2 [facility] Comment on above: Performed By: #### L 500.2500, L100.0100 ####[facility] [address] [place], [address] RDW SD 45.4 fl High 35.1-43.9 [facility] Comment on above: Performed By: #### L 500.2500, L100.0100 ####[facility] [address] [place], [address] WBC (Bld) [#/Vol] 8.1 10*3/uL Normal 4.4-11.0 [facility] Comment on above: Performed By: #### L 500.2500, L100.0100 ####[facility] [address] [place], [address] T4 Free Directon 03-30-2024 T4 FREE DIRECT 1.12 ng/dL Normal 0.76-1.46 [facility] Comment on above: Performed By: #### L 506.0400 ####[facility] [address] [place], [address] Basic Metabolic Profile (BMP )on 03-29-2024 BUN/CRE 14.7 RATIO Normal 10-20 [facility] Comment on above: Performed By: #### L 501.2300, L501.5200, L501.9520, L500.2500, L100.0100, L500.3400 ####[facility] [address] [place], [address] CA,Total 8.3 mg/dL Low 8.5-10.1 [facility] Comment on above: Performed By: #### L 501.2300, L501.5200, L501.9520, L500.2500, L100.0100, L500.3400 ####[facility] [address] [place], [address] Chloride [Moles/Vol] 110 mmol/L High 98-107 [facility] Comment on above: Performed By: #### L 501.2300, L501.5200, L501.9520, L500.2500, L100.0100, L500.3400 ####[facility] [address] [place], [address] CO2 [Moles/Vol] 24.0 mmol/L Normal 21.0-32.0 [facility] Comment on above: Performed By: #### L 501.2300, L501.5200, L501.9520, L500.2500, L100.0100, L500.3400 ####[facility] [address] [place], [address] Creatinine [Mass/Vol] 1.09 mg/dL Normal 0.70-1.30 [facility] Comment on above: Result Comment: The validity of the calculated GFR GFRAA in patients over 70 years has not been determined. Clinical correlation is essential. Performed By: #### L 501.2300, L501.5200, L501.9520, L500.2500, L100.0100, L500.3400 ####[facility] [address] [place], [address] ECRCL 59.96 ml/min Normal [facility] Comment on above: Performed By: #### L 501.2300, L501.5200, L501.9520, L500.2500, L100.0100, L500.3400 ####[facility] [address] [place], [address] EST GFR - AA 85 mL/min Normal >60 [facility] Comment on above: Result Comment: Afri can Ghanaian GFR Calc Performed By: #### L 501.2300, L501.5200, L501.9520, L500.2500, L100.0100, L500.3400 ####[facility] [address] [place], [address] GAP 5 Normal 5-15 [facility] Comment on above: Performed By: #### L 501.2300, L501.5200, L501.9520, L500.2500, L100.0100, L500.3400 ####[facility] [address] [place], [address] GFR/1.73 sq M.predicted among non-blacks MDRD (S/P/Bld) [Vol rate/Area] 70 mL/min/{1.73_m2} Normal >60 [facility] Comment on above: Result Comment: Non- GFR Calc Performed By: #### L 501.2300, L501.5200, L501.9520, L500.2500, L100.0100, L500.3400 ####[facility] [address], [address] Glucose [Mass/Vol] 107 mg/dL High 74-106 [facility] Comment on above: Result Comment: Fast ing Glucose result from 100 to 125 mg/dL suggests IMPAIRED HOMEOSTASIS per A.D.A. criteria. Performed By: #### L 501.2300, L501.5200, L501.9520, L500.2500, L100.0100, L500.3400 ####[facility] [address] [place], [address] Potassium [Moles/Vol] 4.1 mmol/L Normal 3.5-5.1 [facility] Comment on above: Performed By: #### L 501.2300, L501.5200, L501.9520, L500.2500, L100.0100, L500.3400 ####[facility] [address] [place], [address] Sodium [Moles/Vol] 139 mmol/L Normal 136-145 [facility] Comment on above: Performed By: #### L 501.2300, L501.5200, L501.9520, L500.2500, L100.0100, L500.3400 ####[facility] [address] [place], [address] Urea nitrogen [Mass/Vol] 16 mg/dL Normal 7-18 [facility] Comment on above: Performed By: #### L 501.2300, L501.5200, L501.9520, L500.2500, L100.0100, L500.3400 ####[facility] [address] [place], [address] CBC W/Diff, Automatedon 03-17-2023 Absolute Lymph 1.50 X10 3/uL Normal 0.83-4.51 [facility] Comment on above: Performed By: #### L 501.2300, L501.5200, L501.9520, L500.2500, L100.0100, L500.3400 ####[facility] [address] [place], [address] Absolute Neut 5.0 X10 3/uL Normal 2.0-7.7 [facility] Comment on above: Performed By: #### L 501.2300, L501.5200, L501.9520, L500.2500, L100.0100, L500.3400 ####[facility] [address] [place], [address] Basophils/100 WBC (Bld) 0.8 % Normal 0-1 [facility] Comment on above: Performed By: #### L 501.2300, L501.5200, L501.9520, L500.2500, L100.0100, L500.3400 ####[facility] [address] [place], [address] Eosinophils/100 WBC (Bld) 2.1 % Normal 0-5 [facility] Comment on above: Performed By: #### L 501.2300, L501.5200, L501.9520, L500.2500, L100.0100, L500.3400 ####[facility] [address] [place], [address] Erythrocyte distribution width (RBC) [Ratio] 12.9 % Normal 11.6-14.6 [facility] Comment on above: Performed By: #### L 501.2300, L501.5200, L501.9520, L500.2500, L100.0100, L500.3400 ####[facility] [address] [place], [address] Hematocrit (Bld) [Volume fraction] 36.4 % Low 40-54 [facility] Comment on above: Performed By: #### L 501.2300, L501.5200, L501.9520, L500.2500, L100.0100, L500.3400 ####[facility] [address] [place], [address] Hemoglobin (Bld) [Mass/Vol] 11.4 g/dL Low 13.0-16.5 [facility] Comment on above: Performed By: #### L 501.2300, L501.5200, L501.9520, L500.2500, L100.0100, L500.3400 ####[facility] [address] [place], [address] IG% 0.900 Normal 0.0-0.9 [facility] Comment on above: Result Comment: IG% - Immature Granulocytes (promyelocytes, myelocytes and metamyelocytes) > 1% indicates that a LEFT SHIFT is Present. Performed By: #### L 501.2300, L501.5200, L501.9520, L500.2500, L100.0100, L500.3400 ####[facility] [address] [place], [address] Lymphocytes/100 WBC (Bld) 20.0 % Normal 19-41 [facility] Comment on above: Performed By: #### L 501.2300, L501.5200, L501.9520, L500.2500, L100.0100, L500.3400 ####[facility] [address] [place], [address] MCH (RBC) [Entitic mass] 31.2 pg Normal 27.0-32.0 [facility] Comment on above: Performed By: #### L 501.2300, L501.5200, L501.9520, L500.2500, L100.0100, L500.3400 ####[facility] [address] [place], [address] MCHC (RBC) [Mass/Vol] 31.3 g/dL Low 32-36 [facility] Comment on above: Performed By: #### L 501.2300, L501.5200, L501.9520, L500.2500, L100.0100, L500.3400 ####[facility] [address] [place], [address] MCV (RBC) [Entitic vol] 99.7 fL High 80-94 [facility] Comment on above: Performed By: #### L 501.2300, L501.5200, L501.9520, L500.2500, L100.0100, L500.3400 ####[facility] [address] [place], [address] Monocytes/100 WBC (Bld) 9.6 % Normal 0-10 [facility] Comment on above: Performed By: #### L 501.2300, L501.5200, L501.9520, L500.2500, L100.0100, L500.3400 ####[facility] [address] [place], [address] Neutrophils/100 WBC (Bld) 66.6 % Normal 47-70 [facility] Comment on above: Performed By: #### L 501.2300, L501.5200, L501.9520, L500.2500, L100.0100, L500.3400 ####[facility] [address] [place], [address] Nucleated RBC (Bld) [#/Vol] 0 10*3/uL Normal 0-5 [facility] Comment on above: Performed By: #### L 501.2300, L501.5200, L501.9520, L500.2500, L100.0100, L500.3400 ####[facility] [address] [place], [address] Platelet mean volume (Bld) [Entitic vol] 9.7 fL Normal 6.2-12.0 [facility] Comment on above: Performed By: #### L 501.2300, L501.5200, L501.9520, L500.2500, L100.0100, L500.3400 ####[facility] [address] [place], [address] Platelets (Bld) [#/Vol] 232 10*3/uL Normal 150-450 [facility] Comment on above: Performed By: #### L 501.2300, L501.5200, L501.9520, L500.2500, L100.0100, L500.3400 ####[facility] [address] [place], [address] RBC (Bld) [#/Vol] 3.65 10*6/uL Low 4.6-6.2 [facility] Comment on above: Performed By: #### L 501.2300, L501.5200, L501.9520, L500.2500, L100.0100, L500.3400 ####[facility] [address] [place], [address] RDW SD 47.4 fl High 35.1-43.9 [facility] Comment on above: Performed By: #### L 501.2300, L501.5200, L501.9520, L500.2500, L100.0100, L500.3400 ####[facility] [address] [place], [address] WBC (Bld) [#/Vol] 7.5 10*3/uL Normal 4.4-11.0 [facility] Comment on above: Performed By: #### L 501.2300, L501.5200, L501.9520, L500.2500, L100.0100, L500.3400 ####[facility] [address] [place], [address] Liver Profileon 03-29-2024 Albumin [Mass/Vol] 2.7 g/dL Low 3.2-5.0 [facility] Comment on above: Performed By: #### L 501.2300, L501.5200, L501.9520, L500.2500, L100.0100, L500.3400 ####[facility] [address] [place], [address] ALK P 58 U/L Normal 45-117 [facility] Comment on above: Performed By: #### L 501.2300, L501.5200, L501.9520, L500.2500, L100.0100, L500.3400 ####[facility] [address] [place], [address] ALT [Catalytic activity/Vol] 26 U/L Normal 16-61 [facility] Comment on above: Performed By: #### L 501.2300, L501.5200, L501.9520, L500.2500, L100.0100, L500.3400 ####[facility] [address] [place], [address] AST [Catalytic activity/Vol] 15 U/L Normal 15-37 [facility] Comment on above: Performed By: #### L 501.2300, L501.5200, L501.9520, L500.2500, L100.0100, L500.3400 ####[facility] [address] [place], [address] Bilirubin [Mass/Vol] 0.40 mg/dL Normal 0.20-1.00 [facility] Comment on above: Result Comment: For patients on eltrombopag therapy, use of Dimension [place] TBIL is not recommended. Performed By: #### L 501.2300, L501.5200, L501.9520, L500.2500, L100.0100, L500.3400 ####[facility] [address] [place], [address] Bilirubin.direct [Mass/Vol] 0.13 mg/dL Normal 0.00-0.30 [facility] Comment on above: Performed By: #### L 501.2300, L501.5200, L501.9520, L500.2500, L100.0100, L500.3400 ####[facility] [address] [place], [address] Globulin (S) [Mass/Vol] 3.5 g/dL Normal 2.2-4.2 [facility] Comment on above: Performed By: #### L 501.2300, L501.5200, L501.9520, L500.2500, L100.0100, L500.3400 ####[facility] [address] [place], [address] T PROT 6.2 g/dL Low 6.4-8.2 [facility] Comment on above: Performed By: #### L 501.2300, L501.5200, L501.9520, L500.2500, L100.0100, L500.3400 ####[facility] [address] [place], [address] Magnesiumon 03-29-2024 Magnesium [Mass/Vol] 2.0 mg/dL Normal 1.6-2.6 [facility] Comment on above: Performed By: #### L 501.2300, L501.5200, L501.9520, L500.2500, L100.0100, L500.3400 ####[facility] [address] [place], [address] Phosphoruson 03-29-2024 Phosphate [Mass/Vol] 3.1 mg/dL Normal 2.5-4.9 [facility] Comment on above: Performed By: #### L 501.2300, L501.5200, L501.9520, L500.2500, L100.0100, L500.3400 ####[facility] [address] [place], [address] Thyroid Stim Hormone (TSH)on 03-29-2024 TSH 0.169 uIU/mL Low 0.358-3.740 [facility] Comment on above: Performed By: #### L 501.2300, L501.5200, L501.9520, L500.2500, L100.0100, L500.3400 ####[facility] [address] [place], [address] Vitamin B12on 03-29-2024 Cobalamin (Vitamin B12) [Mass/Vol] 281 pg/mL Normal 211-911 [facility] Comment on above: Performed By: #### L 503.0105 ####[facility] [address], [address] 12 Lead EKGon 03-28-2024 12 Lead EKG [facility] [address] [place] [address] 12 Lead EKG 03/28/24 1027 MR#: [id number] Acct: [id number] Name: J LUIS MADERA Rep #: [id number] : 1950 73 From: Jass Rawls MD Attending Dr: Dr. Kike Malave MD Status: ADM EDUARDO Ordering Dr: Pablo Bill DO Date: 4 Location: [facility] Sex: M C Admitted: 03/28/24 Test Reason : Blood Pressure : / mmHG Vent. Rate : 075 BPM Atrial Rate : 075 BPM P-R Int : 168 ms QRS Dur : 130 ms QT Int : 396 ms P-R-T Axes : 059 077 045 degrees QTc Int : 442 ms Normal sinus rhythm Right bundle branch block Abnormal ECG Confirmed by DULCE TRIPATHI, JASS ([id number]), visual effects editor CYN MATHUR ([id number]) on 03/30/2024 8:09:42 AM Referred By: AK Confirmed By:JASS RAWLS MD 03/30/24 0809 Date Jass Rawls MD CC: Dr. Pablo Bill DO; Dr. Usman Patel MD; Dr. Kike Malave MD Signed Normal [facility] Basic Metabolic Profile (BMP )on 03-28-2024 BUN/CRE 13.8 RATIO Normal 10-20 [facility] Comment on above: Order Comment: 'TROP ' Serial specimen #1, #2 or #3: 1 Performed By: #### L 503.6005, L500.2500, L501.4020, L100.0100 #### [facility] [address] [place], [address] CA,Total 9.3 mg/dL Normal 8.5-10.1 [facility] Comment on above: Order Comment: 'TROP ' Serial specimen #1, #2 or #3: 1 Performed By: #### L 503.6005, L500.2500, L501.4020, L100.0100 #### [facility] [address] [place], [address] Chloride [Moles/Vol] 108 mmol/L High 98-107 [facility] Comment on above: Order Comment: 'TROP ' Serial specimen #1, #2 or #3: 1 Performed By: #### L 503.6005, L500.2500, L501.4020, L100.0100 #### [facility] [address] [place], [address] CO2 [Moles/Vol] 27.0 mmol/L Normal 21.0-32.0 [facility] Comment on above: Order Comment: 'TROP ' Serial specimen #1, #2 or #3: 1 Performed By: #### L 503.6005, L500.2500, L501.4020, L100.0100 #### [facility] [address] [place], [address] Creatinine [Mass/Vol] 1.30 mg/dL Normal 0.70-1.30 [facility] Comment on above: Order Comment: 'TROP ' Serial specimen #1, #2 or #3: 1 Result Comment: The validity of the calculated GFR GFRAA in patients over 70 years has not been determined. Clinical correlation is essential. Performed By: #### L 503.6005, L500.2500, L501.4020, L100.0100 #### [facility] [address] [place], [address] ECRCL 51.97 ml/min Normal [facility] Comment on above: Order Comment: 'TROP ' Serial specimen #1, #2 or #3: 1 Performed By: #### L 503.6005, L500.2500, L501.4020, L100.0100 #### [facility] [address] [place], [address] EST GFR - AA 69 mL/min Normal >60 [facility] Comment on above: Order Comment: 'TROP ' Serial specimen #1, #2 or #3: 1 Result Comment: Afri can Ghanaian GFR Calc Performed By: #### L 503.6005, L500.2500, L501.4020, L100.0100 #### [facility] [address] [place], [address] GAP 4 Low 5-15 [facility] Comment on above: Order Comment: 'TROP ' Serial specimen #1, #2 or #3: 1 Performed By: #### L 503.6005, L500.2500, L501.4020, L100.0100 #### [facility] [address] [place], [address] GFR/1.73 sq M.predicted among non-blacks MDRD (S/P/Bld) [Vol rate/Area] 57 mL/min/{1.73_m2} Low >60 [facility] Comment on above: Order Comment: 'TROP ' Serial specimen #1, #2 or #3: 1 Result Comment: Non- GFR Calc Performed By: #### L 503.6005, L500.2500, L501.4020, L100.0100 #### [facility] [address] [place], [address] Glucose [Mass/Vol] 124 mg/dL High 74-106 [facility] Comment on above: Order Comment: 'TROP ' Serial specimen #1, #2 or #3: 1 Result Comment: Fast ing Glucose result from 100 to 125 mg/dL suggests IMPAIRED HOMEOSTASIS per A.D.A. criteria. Performed By: #### L 503.6005, L500.2500, L501.4020, L100.0100 #### [facility] [address] [place], [address] Potassium [Moles/Vol] 4.2 mmol/L Normal 3.5-5.1 [facility] Comment on above: Order Comment: 'TROP ' Serial specimen #1, #2 or #3: 1 Performed By: #### L 503.6005, L500.2500, L501.4020, L100.0100 #### [facility] [address] [place], [address] Sodium [Moles/Vol] 139 mmol/L Normal 136-145 [facility] Comment on above: Order Comment: 'TROP ' Serial specimen #1, #2 or #3: 1 Performed By: #### L 503.6005, L500.2500, L501.4020, L100.0100 #### [facility] [address] [place], [address] Urea nitrogen [Mass/Vol] 18 mg/dL Normal 7-18 [facility] Comment on above: Order Comment: 'TROP ' Serial specimen #1, #2 or #3: 1 Performed By: #### L 503.6005, L500.2500, L501.4020, L100.0100 #### [facility] [address] [place], [address] CBC W/Diff, Automatedon 03-17-2023 Absolute Lymph 1.10 X10 3/uL Normal 0.83-4.51 [facility] Comment on above: Performed By: #### L 503.6005, L500.2500, L501.4020, L100.0100 #### [facility] [address] [place], [address] Absolute Neut 4.7 X10 3/uL Normal 2.0-7.7 [facility] Comment on above: Performed By: #### L 503.6005, L500.2500, L501.4020, L100.0100 #### [facility] [address] [place], [address] Basophils/100 WBC (Bld) 0.7 % Normal 0-1 [facility] Comment on above: Performed By: #### L 503.6005, L500.2500, L501.4020, L100.0100 #### [facility] [address] [place], [address] Eosinophils/100 WBC (Bld) 1.9 % Normal 0-5 [facility] Comment on above: Performed By: #### L 503.6005, L500.2500, L501.4020, L100.0100 #### [facility] [address] [place], [address] Erythrocyte distribution width (RBC) [Ratio] 12.8 % Normal 11.6-14.6 [facility] Comment on above: Performed By: #### L 503.6005, L500.2500, L501.4020, L100.0100 #### [facility] [address] [place], [address] Hematocrit (Bld) [Volume fraction] 39.7 % Low 40-54 [facility] Comment on above: Performed By: #### L 503.6005, L500.2500, L501.4020, L100.0100 #### [facility] [address] [place], [address] Hemoglobin (Bld) [Mass/Vol] 12.6 g/dL Low 13.0-16.5 [facility] Comment on above: Performed By: #### L 503.6005, L500.2500, L501.4020, L100.0100 #### [facility] [address] [place], [address] IG% 1.000 High 0.0-0.9 [facility] Comment on above: Result Comment: IG% - Immature Granulocytes (promyelocytes, myelocytes and metamyelocytes) > 1% indicates that a LEFT SHIFT is Present. Performed By: #### L 503.6005, L500.2500, L501.4020, L100.0100 #### [facility] [address] [place], [address] Lymphocytes/100 WBC (Bld) 16.4 % Low 19-41 [facility] Comment on above: Performed By: #### L 503.6005, L500.2500, L501.4020, L100.0100 #### [facility] [address] [place], [address] MCH (RBC) [Entitic mass] 31.7 pg Normal 27.0-32.0 [facility] Comment on above: Performed By: #### L 503.6005, L500.2500, L501.4020, L100.0100 #### [facility] [address] [place], [address] MCHC (RBC) [Mass/Vol] 31.7 g/dL Low 32-36 [facility] Comment on above: Performed By: #### L 503.6005, L500.2500, L501.4020, L100.0100 #### [facility] [address] [place], [address] MCV (RBC) [Entitic vol] 100.0 fL High 80-94 [facility] Comment on above: Performed By: #### L 503.6005, L500.2500, L501.4020, L100.0100 #### [facility] [address] [place], [address] Monocytes/100 WBC (Bld) 9.7 % Normal 0-10 [facility] Comment on above: Performed By: #### L 503.6005, L500.2500, L501.4020, L100.0100 #### [facility] [address] [place], [address] Neutrophils/100 WBC (Bld) 70.3 % High 47-70 [facility] Comment on above: Performed By: #### L 503.6005, L500.2500, L501.4020, L100.0100 #### [facility] [address] [place], [address] Nucleated RBC (Bld) [#/Vol] 0 10*3/uL Normal 0-5 [facility] Comment on above: Performed By: #### L 503.6005, L500.2500, L501.4020, L100.0100 #### [facility] [address] [place], [address] Platelet mean volume (Bld) [Entitic vol] 9.5 fL Normal 6.2-12.0 [facility] Comment on above: Performed By: #### L 503.6005, L500.2500, L501.4020, L100.0100 #### [facility] [address] [place], [address] Platelets (Bld) [#/Vol] 250 10*3/uL Normal 150-450 [facility] Comment on above: Performed By: #### L 503.6005, L500.2500, L501.4020, L100.0100 #### [facility] [address] [place], [address] RBC (Bld) [#/Vol] 3.97 10*6/uL Low 4.6-6.2 [facility] Comment on above: Performed By: #### L 503.6005, L500.2500, L501.4020, L100.0100 #### [facility] [address] [place], [address] RDW SD 47.1 fl High 35.1-43.9 [facility] Comment on above: Performed By: #### L 503.6005, L500.2500, L501.4020, L100.0100 #### [facility] [address] [place], [address] WBC (Bld) [#/Vol] 6.7 10*3/uL Normal 4.4-11.0 [facility] Comment on above: Performed By: #### L 503.6005, L500.2500, L501.4020, L100.0100 #### [facility] [address] [place], [address] Chest 1 View (Portable)on Chest 1 View (Portable) [facility] Imaging Services [address] [place] [address] Chest 1 View (Portable) MR#: [id number] Acct: [id number] Name: J LUIS MADERA Rep #: [id number] : 1950 M 73 From: Vj antoine MD PCP: Dr. Usman Patel MD Status: REG ER Study: Chest 1 View (Portable) Date of Exam: 03/28/24 Exam# [id number] Ordering Dr: Pablo Bill DO [id number] STUDY: X-RAY CHEST REASON FOR EXAM: Male, [...] Signed: Vj Fisher MD at 11:01 EDT , CC: Dr. Pablo Bill DO; Dr. Usman Ptael MD Blackjack Pit Boss: Signed Normal [facility] Emergency Department Summary on 03-28-2024 Emergency Department Summary [facility] Medical Records Department [address] [place] [address] Emergency Department Summary 03/28/24 MR#: [id number] Acct: [id number] Name: JLUIS MADERA Rep #: [id number] : 1950 73 From: Pablo Bill DO PCP: Dr. Usman Patel MD Status:ADM EDUARDO Location: MS3 [id number] HPI History of Present Illness Chief Complaint: [...] This was compared to previous chest x-ray. [facility] Medical History (Updated 07/03/23 @ 00:01 by Colette Stanford) Generalized weakness Hx of cerebral palsy Post-nasal [...] making narrative: (more content not included)... Normal [facility] Ferritinon 03-28-2024 Ferritin [Mass/Vol] 286 ng/mL Normal 26-388 [facility] Comment on above: Performed By: #### L 503.0105, L503.6550, L503.6030, L506.1000 ####[facility] [address] [place], [address] H AND P Exam - Hospitaliston 03-28-2024 H&P Exam - Hospitalist [facility] Medical Records Department [address] [place] [address] H P Exam - Hospitalist 03/28/24 1337 MR#: [id number] Acct: [id number] Name: J LUIS MADERA Rep #: [id number] : 1950 73 From: Melissa Burton MD PCP: Dr. Usman Patel MD Status:ADM EDUARDO Location: [place] [address] HPI - General General Date of Admission: 03/28/24 Date of Service: 03/28/24 Chief Complaint: Weakness and difficulty ambulating HPI Narrative J LUIS MADERA, is a 73 M with history of cerebral palsy, COPD, seizure disorder presented [facility] ED 03/28/2024 d/t difficulty with ambulating and [...] Medical History (Updated 07/03/23 @ 00:01 by Colette Stanford) COPD with exacerbation DVT of proximal lower [...] 97 Oxy (more content not included)... Normal [facility] Iron+Iron Binding Capacityon 03-28-2024 Iron [Mass/Vol] 88 ug/dL Normal 65-175 [facility] Comment on above: Result Comment: Slig ht Hemolysis, Result may be falsely increased. Performed By: #### L 503.0105, L503.6550, L503.6030, L506.1000 #### [facility] [address] [place], [address] IRON SATURATION 31.9 Normal 15.0-55.0 [facility] Comment on above: Performed By: #### L 503.0105, L503.6550, L503.6030, L506.1000 #### [facility] [address] [place], [address] TIBC 276 ug/dL Normal 250-450 [facility] Comment on above: Performed By: #### L 503.0105, L503.6550, L503.6030, L506.1000 #### [facility] [address] [place], [address] L501.4020on 03-28-2024 TROPONIN-I HS 4 pg/mL Normal 3.0-78.0 [facility] Comment on above: Order Comment: 'TROP ' Serial specimen #1, #2 or #3: 1 Result Comment: Plea se Note: New Test Units and Gender Specific Reference Ranges. For more information see Policy Stat Procedure [place] High Sensitivity Troponin (TNIH) and attachments. Performed By: #### L 503.6005, L500.2500, L501.4020, L100.0100 #### [facility] [address] [place], [address] Lactic Acidon 03-28-2024 Lactate [Moles/Vol] 1.8 mmol/L Normal 0.4-1.9 [facility] Comment on above: Order Comment: Y Performed By: #### L 503.6005, L500.2500, L501.4020, L100.0100 #### [facility] [address] [place], [address] M100.678on 03-28-2024 M100.678 Pending SARS-CoV-2 (COVID 19) Negative INFLUENZA A Negative INFLUENZA B Negative RSV PCR Negative Normal [facility] Comment on above: Performed By: #### M 100.678 #### [facility] [address] [place], [address] Urinalysis, Completeon 03-28 BACTERIA 1+ /hpf Normal None Seen [facility] Comment on above: Order Comment: CLEAN CATCH Performed By: #### L 400.0001 #### [facility] [address] [place], [address] EPI,SQUAMOUS 0-5 SEEN Normal 0-5 [facility] Comment on above: Order Comment: CLEAN CATCH Performed By: #### L 400.0001 #### [facility] [address] [place], [address] WBC 0-5 SEEN Normal 0-5 [facility] Comment on above: Order Comment: CLEAN CATCH Performed By: #### L 400.0001 #### [facility] [address] [place], [address] Mucus Ql (Urine sed) [address] [facility] Comment on above: Order Comment: CLEAN CATCH Performed By: #### L 400.0001 #### [facility] [address] [place], [address] RBC 0 SEEN Normal 0-5 [facility] Comment on above: Order Comment: CLEAN CATCH Performed By: #### L 400.0001 #### [facility] [address] [place], [address] Venous Duplex US - Bright Extre mon 03-28-2024 Venous Duplex US - Bright Extrem [facility] Cardiovascular Services [address] [place] [address] Venous Duplex US - Bright Extrem 03/28/24 1456 MR#: [id number] Acct: [id number] Name: J LUIS MADERA Rep #: [id number] : 1950 73 From: Grady Dupree MD [...] was called and/or faxed to M/S 3 unit supervisor. VL/Venous Duplex US - Bright Extrem Interpretation [...] MD Usman Patel Performed By: Luke Stephens, Kwmae 03/28/241925 Date rGady Dupree MD CC: Dr. Usman Patel MD; Dr. Melissa Burton MD Date Dictated: 03/28/241455 Date Transcribed: 03/28/241925 Blackjack Pit Boss: Signed Normal [facility] Vitamin B12on 03-28-2024 Cobalamin (Vitamin B12) [Mass/Vol] 361 pg/mL Normal 211-911 [facility] Comment on above: Performed By: #### L 503.0105, L503.6550, L503.6030, L506.1000 #### [facility] [address] [place], [address] Vitamin D,25 Hydroxyon 03-28 Vitamin D 25-OH 17.4 ng/mL Normal [facility] Comment on above: Result Comment: Ammy min D 25(OH) Status Range Deficiency <20 ng/mL (50nmol/L) Insufficiency 20 - 30 ng/mL (50 - 75 nmol/L) Sufficiency 30 - 100 ng/mL (75 - 250 nmol/L) Toxicity >100 ng/mL (>250 nmol/L) Performed By: #### L 503.0105, L503.6550, L503.6030, L506.1000 #### [facility] [address] [place], [address] CNPFlory 02-06-2024 [facility]IS [facility]AD[facility] ([id number]) 1950 M Date Time Provider Department 02/06/24 [facility] During your visit today, we recorded the following information about you: Norma Rogers MA 02/06/2024 9:49 AM Signed Type of letter/form/fax request - order for adult daycare Form received from fax on 1 floor and placed on MD desk (Dr. Patel) for completion. Completed form needs to be faxed to [facility] at [phone].. Route to [place] when form completed for processing Norma Rogers MA 02/06/2024 3:28 PM Signed Form faxed. Norma Rogers MA Allergies As of Date: 02/06/2024 Noted Allergy Reaction SEASONAL ALLERGIES 03/13/2012 14 - Other: See Comments Date Reviewed: 10/20/2023 Reviewed by: Julieta Mckay MA - Fully Assessed Reason for Visit: Forms [793] Cmt: [facility] 90 day order Prescriptions as of 02/06/2024 [...] Encounter Status:Closed by NORMA ROGERS on 02/06/24 [facility] CNOVon 10-20-2023 CNOV Office Visit (FAMPWS ) J LUIS MADERA ([id number]) 1950 M Date Time Provider Department 10/20/23 [...] obstructive pulmonary disease based on initial evaluation ([facility]) 2018 Previous Surgical History PAST SURGICAL HISTORY [...] Directive Dis (more content not included)... Normal [facility] HbA1c (Bld)on 10-20-2023 Average glucose Estimated from glycated hemoglobin (Bld) [Mass/Vol] 123 mg/dL Normal [facility] Comment on above: Order Comment: Emil obrien Type: BLOOD SPECIMENOrdering Facility: [facility] Address: [address] [place] [address] Result Comment: eAG: (Estimated average glucose) is a calculated value from HgbA1c and is quality control representative of the average blood glucose level in the last 2-3 month period. Performed By: #### 5 5454-3 ####[facility] LABCLIA [id number] [place] [address] [place] HbA1c (Bld) [Mass fraction] 5.9 % High 4.3-5.6 [facility] Comment on above: Order Comment: Emil obrien Type: BLOOD SPECIMENOrdering Facility: [facility] Address: [address] [place] [address] Result Comment: Amer ican Diabetes Association guidelines indicate that patients with HgbA1c in the range 5.7-6.4% are at increased risk for development of diabetes, and intervention by lifestyle modification may be beneficial. HgbA1c greater or equal to 6.5% is considered diagnostic of diabetes. Performed By: #### 5 5454-3 ####[facility] LABCLIA [id number] [place] [id number] [place] TSH SerPl-aCncon 10-20-2023 TSH Qn 0.998 m[IU]/L Normal 0.270-4.200 [facility] Comment on above: Order Comment: Speci men Type: BLOOD SPECIMENOrdering Facility: [facility] Address: [address] [place] [address] Performed By: #### 3 016-3 ####[facility] LABCLIA [id number] [place] [id number] [place] CNPNon 10-19-2023 [facility] MADERA ([id number]) 1950 M Date Time Provider Department 10/19/23 USMAN PATEL [facility] During your visit today, we recorded the following information about you: Julieta Mckay MA 10/19/2023 9:29 AM Signed Type of form: 90 day order from [employer] Form received via fax When form is completed, Fax form to [phone] Form has been forwarded to Physician Desk: ALLISON Velazquez Rilee, MA 10/19/2023 11:56 AM Signed Form signed and faxed back to information below. Julieta Mckay MA Allergies As of Date: 10/19/2023 Noted Allergy Reaction SEASONAL ALLERGIES 03/13/2012 14 - Other: See Comments Date Reviewed: 08/28/2023 Reviewed by: Aiden Mccrary MD - Fully Assessed Reason for Visit: Forms [913] Cmt: Orders from [employer] - 90 day Prescriptions as of 10/19/2023 [...] Status:Closed by JULIETA MCKAY on 10/19/23 Normal [facility] US CAROTID ARTERIES BRIGHT VAS LABon 09-19-2023 CAROTID ARTERIES BRIGHT VAS LAB Non-Invasive Vascular Laboratory [facility] Carotid Duplex Bilateral/Complete Date of service/time: 09/19/2023 [...] MCCRARY Interpreting physician: MANISHA Melendez DO Final CC M-DISC Medical Image : [id number] See Link below for Image Normal [facility] ECHOon 09-05-2023 Echocardiography Echocardiography Report: Transthoracic Echo [facility] Date of service: 09/05/2023 1:10:31 PM NET STRINGER Ordering physician: AIDEN MCCRARY Indication: Syncope Technologist: Dayna Riojas [facility] Interpreting physician: Livan Flores DO PATIENT: Name: [...] * * Final * * * CC M-DISC Medical Image : [id number] Normal [facility] CNOVon 08-28-2023 CNOV Office Visit (CAWSTR ) J LUIS MADERA ([id number]) 1950 M Date Time Provider Department 08/28/23 10:20 AM AIDEN MCCRARYWSTR During your visit today, we recorded the following information about you: Pulse Respiration Blood pressure Weight 71/minute 16/minute 151/64 91.6 kg Aiden Mccrary MD 08/28/2023 11:43 AM Signed [facility] SE[facility] REGIONAL CARDIOLOGY Cardiology ([facility]) [address] [address] OUTPATIENT VISIT DATE 08/28/2023 PRIMARY CARE PHYSICIAN: Usman Patel [address] [place] [address] REFERRING PHYSICIAN: Temitope Lara [address] [facility] [address] CHIEF COMPLAINT: Dizziness HISTORY OF PRESENT ILLNESS: [...] S2 with (more content not included)... Normal [facility] MRI CERVICAL SPINE WO IVCONo n 08-15-2023 [...] vertebrae with counting from the craniocervical junction. Blackjack Pit Boss: PSCB Transcribe Date/Time: Aug 15 2023 2:23P Dictated by : SHIRIN PRADO MD This examination was interpreted and the report reviewed and electronically signed by: SHIRIN PRADO MD on Aug 15 2023 2:25PM EST [id number] Normal [facility] CNPNon 08-14-2023 CNPN Telephone (4CQ) J LUIS MADERA ([id number]) 1950 M Date Time Provider Department 08/14/23 USMAN PATEL 4CQ During your visit today, we recorded the following information about you: Batsheva Parry 08/14/2023 2:32 PM Signed Patient is requesting new PT order for Dizziness [R42] Balance problem [R26.89] Abnormality of gait [R26.9] And then would like this order faxed to [facility] as [place] is to far to travel for the patient. Usman Patel MD 08/14/2023 3:22 PM Signed Order printed MD Ken Fraire Ma, Kathryn 08/14/2023 3:40 PM Signed Order faxed to [facility] [place]. Detailed message left on pt identified VM [...] [R26.89] Dizziness [R42] Order(s):CONSULT TO PHYSICAL THERAPY [9059] Order #: [id number]: 1 FUTURE Prescriptions as of 08/14/2023 - [...] Status:Closed by NORMA ROGERS MA on 08/14/23 [facility] CNTHERAPYon 08-08-2023 CNTHERAPY OT/PT/Speech Visit (LDPT) J LUIS MADERA ([id number]) 1950 M Date Time Provider Department 08/08/23 1:30 PM MARY KAY BAIRES LDPT Date Time Provider Department [place] 08/08/2023 1:30 PM [id number], SARAH LDPT [facility] Reason for Visit: PT Progress Note [...] tablet by mouth two times a day. Data Warehouse Developer: Addendum Therapy (PT/OT/Speech/Resp) ID: [id number] 08/08/2023 2:14 PM Author: MARY KAY BAIRES Signed by MARY KAY BAIRES PT, DPT on 08/08/2023 at 2:14 PM * * * This document replaces document [id number] * * * Document text: Program_ID:[id number] Access Code: [email or web address] URL: [email or web address] Date: 08-08-2023 Prepared By: Mary Kay Baires [...] 2 sets - 10 reps ----- Normal [facility] THERAPY NTon 08-08-2023 THERAPY NT HNO ID: [id number] Author: MARY KAY BAIRES, PT, DPT Service: ? Author Type: Physical Therapist Type: Therapy (PT/OT/Speech/Resp) Filed: 08/08/2023 14:06 Note Text: Program_ID:[id number] Access Code: [email or web address] URL: [email or web address] Date: 08-08-2023 Prepared By: Mary Kay Baires Program Notes Exercises - Sit to Stand with Armchair - x daily - 7 x weekly - 2 sets - 10 reps Normal [facility] CNPNon 07-20-2023 [facility] Telephone ([place]) J LUIS MADERA ([id number]) 1950 M Date Time Provider Department 07/20/23 [...] Encounter Status:Closed by CAITY CAI on 07/20/23 Normal [facility] CNOVon 07-19-2023 CNOV Office Visit (NEMOWS ) J LUIS MADERA ([id number]) 1950 M Date Time Provider Department 07/19/23 2:30 PM TEMITOPE LARA During your visit today, we recorded the following information about you: Pulse Respiration Blood pressure Weight 74/minute 18/minute 125/78 90.3 kg Temitope Lara PA-C 07/19/2023 4:16 PM Signed [facility] Out[facility] Date: July 19, 2023 Patient Name: J Luis Madera Referring physician: Usman Patel [address] [place] [phone] Consult requested for dizziness by Dr. Patel. Recommendations will be communicated via shared medical record or US mail. Primary physician: Usman Patel [phone] [place] [phone] Reason for Evaluation: Dizziness and seizures Subjective [...] He is here for established care with [facility] epilepsy department again. No seizure was reported [...] niece called EMS and he was transported [facility]. Reported that his dizziness gets worse with standing but denies any presyncope or lightheaded sensation, described more of a room spinning dizziness. Improves when he sits down or lays down, has difficulty stating how often it occurs but notes that he falls from this dizziness once or twice a month. MRI obtained at [facility] showed no acute infarct and stable chronic changes. Patient does not remember much about his admission, states that no scans were obtained and has difficulty remembering. Notes that he has passed out in the past secondary to this dizziness and he estimates the last occurrence was 6 to 12 months ago. 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 Normal [facility] Regulo 07-19-2023 [place] Telephone (FAMPWS) J LUIS MADERA ([id number]) 1950 M Date Time Provider Department 07/19/23 TEMITOPE LARA During your visit today, we [...] Status:Closed by BRENDA LUNDY on 07/19/23 Normal [facility] CRP SerPl-mCncon 07-19-2023 CRP [Mass/Vol] 1.3 mg/dL High <0.9 [facility] Comment on above: Order Comment: Speci men Type: BLOOD SPECIMENOrdering Facility: [facility] Address: [address] [place] [address] Performed By: #### 2 132-9, 1987-5, 2885-2 ####[facility] LABIA [id number] [place] [address] [place] ESR Westergren method (Bld) [Velocity]on 07-19-2023 ESR (Bld) [Velocity] 46 mm/h High 0-15 [facility] Comment on above: Order Comment: Speci men Type: BLOOD SPECIMENOrdering Facility: [facility] Address: [address] [place] [address] Performed By: #### 4 537-7 ####[facility] LABCLIA [id number] [place] [address] [place] Methylmalonate SerPl-sCncon 07-19-2023 Methylmalonate [Moles/Vol] 0.40 umol/L Normal <=0.40 [facility] Comment on above: Order Comment: Speci men Type: BLOOD SPECIMENOrdering Facility: [facility] Address: [address] [place] [address] Result Comment: This test was developed and its performance characteristics determined by [facility]'s [facility] Pathology and Laboratory Medicine [place] ([facility]). It has not been cleared or approved by the FDA. -[facility] is regulated under CLIA as qualified to perform high-complexity testing. This test is used for clinical purposes. It should not be regarded as investigational or for research. Performed By: #### 1 3964-2 ####[facility] LABIA [id number] [place] [address] [place] PROTEIN ELECTROPHORESIS SERU M WITH ANGEL (P)on 07-19-2023 Albumin [Mass/Vol] 4.11 g/dL Normal 3.43-5.41 [facility] Comment on above: Order Comment: Speci men Type: BLOOD SPECIMENOrdering Facility: [facility] Address: [address] [place] [address] Performed By: #### L [id number] ####[facility] LABIA [id number] [place] [address] [place] Alpha 1 globulin Elph [Mass/Vol] 0.30 g/dL Normal 0.18-0.43 [facility] Comment on above: Order Comment: Speci men Type: BLOOD SPECIMENOrdering Facility: [facility] Address: [address] [place] [address] Performed By: #### L [id number] ####[facility] LABIA [id number] [place] [address] [place] Alpha 2 globulin Elph [Mass/Vol] 0.79 g/dL Normal 0.42-0.98 [facility] Comment on above: Order Comment: Speci men Type: BLOOD SPECIMENOrdering Facility: [facility] Address: [address] [place] [address] Performed By: #### L [id number] ####[facility] LABIA [id number] [place] [address] [place] Beta globulin Elph [Mass/Vol] 0.89 g/dL Normal 0.61-1.17 [facility] Comment on above: Order Comment: Speci men Type: BLOOD SPECIMENOrdering Facility: [facility] Address: [address] [place] [address] Performed By: #### L [id number] ####[facility] LABIA [id number] [place] [address] [place] COMMENT (SERUM PROT ELECTRO) Monoclonal Protein analysis (immunofixation) is not indicated. Normal [facility] Comment on above: Order Comment: Speci men Type: BLOOD SPECIMENOrdering Facility: [facility] Address: [address] [place] [address] Performed By: #### L [id number] ####[facility] LABIA [id number] [place] [address] [place] Gamma globulin Elph [Mass/Vol] 1.12 g/dL Normal 0.53-1.51 [facility] Comment on above: Order Comment: Speci men Type: BLOOD SPECIMENOrdering Facility: [facility] Address: [address] [place] [address] Performed By: #### L [id number] ####[facility] [id number] [address] [place] M-PROTEIN LOCATION Normal [facility] Comment on above: Order Comment: Speci men Type: BLOOD SPECIMENOrdering Facility: [facility] Address: [address] [place] [address] Result Comment: Not Applicable. Performed By: #### L [id number] ####[facility] LABIA [id number] [place] [address] [place] Protein Fractions [Interp] No definitive M protein is identified on protein electrophoresis. Normal No definitive M protein is identified on protein electrophores is. [facility] Comment on above: Order Comment: Speci men Type: BLOOD SPECIMENOrdering Facility: [facility] Address: [address] [place] [address] Performed By: #### L [id number] ####[facility] LABCLIA [id number] [place] [address] [place] Protein.monoclonal Elph [Mass/Vol] 0.00 g/dL Normal <=0.00 [facility] Comment on above: Order Comment: Speci men Type: BLOOD SPECIMENOrdering Facility: [facility] Address: [address] [place] [address] Performed By: #### L [id number] ####[facility] LABIA [id number] [place] [address] [place] SPE STAFF REVIEW Reviewed by Dr. Kira May MD [facility] Comment on above: Order Comment: Speci men Type: BLOOD SPECIMENOrdering Facility: [facility] Address: [address] [place] [address] Performed By: #### L [id number] ####[facility] LABIA [id number] [place] [address] [place] Prot SerPl-mCncon 07-19-2023 Protein [Mass/Vol] 7.2 g/dL Normal 6.3-8.0 [facility] Comment on above: Order Comment: Speci men Type: BLOOD SPECIMENOrdering Facility: [facility] Address: [address] [place] [address] Performed By: #### 2 132-9, 1987-5, 5-2 ####[facility] LABIA [id number] [place] [address] [place] Vit B12 SerPl-mCncon 024 Cobalamin (Vitamin B12) [Mass/Vol] 285 pg/mL Normal 232-1245 [facility] Comment on above: Order Comment: Speci men Type: BLOOD SPECIMENOrdering Facility: [facility] Address: [address] [place] [address] Performed By: #### 2 132-9, 1987-11, 2885 ####[facility] LABCLIA [id number] [id number] [address] [place] CNTHERAPYon 07-14-2023 CNTHERAPY OT/PT/Speech Visit (LDPT) J LUIS MADERA ([id number]) 1950 M Date Time Provider Department 07/14/23 3:00 PM ELSA JOAQUIN LDPT Date Time Provider Department Center 07/14/2023 3:00 PM [id number]-BDVEUKTO, GABRIEL*LDPT [facility] Reason for Visit: PT Eval [747] Primary Visit Diagnosis:Abnormality of gait [R26.9] Other [...] by mouth two times a day. [facility] - Chemistry and C hemistry - challengeOrdered By: Kike Malave on 06-25-2023 Free T4 [Mass/Vol] 0.82 ng/dL 0.76-1.46 [facility] Absolute lymphocyte countOrd ered By: Raoul Oliver on 06-24-2023 Lymphocytes Auto (Unsp spec) [#/Vol] 1.39 10*3/uL 0.83-4.51 [facility] Basophil percentageOrdered B y: Raoul Oliver on 06-24-2023 Basophils/100 WBC (Bld) 1.2 % 0-1 [facility] Chloride [Moles/Vol] 111 mmol/L 98-107 [facility] Eosinophils/100 WBC (Bld) 5.3 % 0-5 [facility] Glucose [Mass/Vol] 105 mg/dL 74-106 [facility] Comment on above: Fasting Glucose resu lt from 100 to 125 mg/dL suggests IMPAIRED HOMEOSTASIS per A.D.A. criteria. Neutrophils (Bld) [#/Vol] 3.3 10*3/uL 2.0-7.7 [facility] Neutrophils/100 WBC (Bld) 57.0 % 47-70 [facility] Potassium [Moles/Vol] 3.8 mmol/L 3.5-5.1 [facility] Sodium [Moles/Vol] 140 mmol/L 136-145 [facility] WBC (Bld) [#/Vol] 5.7 10*3/uL 4.4-11.0 [facility] Blood erythrocytes count (nu mber/volume)Ordered By: Raoul Oliver on 06-24-2023 RBC (Bld) [#/Vol] 3.54 10*6/uL 4.6-6.2 [facility] Blood hemoglobin measurement (mass/volume)Ordered By: Raoul Oliver on 06-24-2023 Hemoglobin (Bld) [Mass/Vol] 11.4 g/dL 13.0-16.5 [facility] Blood lymphocytes/100 leukoc ytesOrdered By: Raoul Oliver on 06-24-2023 Lymphocytes/100 WBC (Bld) 24.4 % 19-41 [facility] Blood monocytes/100 leukocyt esOrdered By: Raoul Oliver on 06-24-2023 Monocytes/100 WBC (Bld) 11.4 % 0-10 [facility] Blood platelet mean volumeOr dered By: Raoul Oliver on 06-24-2023 Platelet mean volume (Bld) [Entitic vol] 10.0 fL 6.2-12.0 [facility] Determination of erythrocyte mean corpuscular volume (MCV)Ordered By: Raoul Oliver on 06-24-2023 MCV (RBC) [Entitic vol] 99.2 fL 80-94 [facility] Hematocrit Auto (Bld) [Volum e fraction]Ordered By: Raoul Oliver on 06-24-2023 Hematocrit (Bld) [Volume fraction] 35.1 % 40-54 [facility] Laboratory - Chemistry and C hemistry - challengeOrdered By: Raoul Oliver on 06-24-2023 CO2 [Moles/Vol] 26.0 mmol/L 21.0-32.0 [facility] Urea nitrogen/Creatinine [Mass ratio] 9.0 mg/mg 10-20 [facility] Laboratory - Hematology and Cell countsOrdered By: Raoul Oliver on 06-24-2023 Erythrocyte distribution width (RBC) [Entitic vol] 48.0 fL 35.1-43.9 [facility] Erythrocyte distribution width (RBC) [Ratio] 13.1 % 11.6-14.6 [facility] Immature granulocytes/100 WBC (Bld) 0.700 % 0.0-0.9 [facility] Comment on above: IG% - Immature Granu locytes (promyelocytes, myelocytes and metamyelocytes) > 1% indicates that a LEFT SHIFT is Present. MCH (RBC) [Entitic mass] 32.2 pg 27.0-32.0 [facility] Nucleated RBC/100 WBC (Bld) [Ratio] 0 % 0-5 [facility] [Mass/Vol]Or dered By: Raoul Oliver on 06-24-2023 MCHC (RBC) [Mass/Vol] 32.5 g/dL 32-36 [facility] No Panel InformationOrdered By: Raoul Oliver on 06-24-2023 Estimated Creatinine Clearance Calc 49.63 ml/min [facility] Estimated GFR (MDRD) Amer 84 mL/min >60 [facility] Comment on above: GFR Calc Estimated GFR (MDRD) Non-Af Amer 69 mL/min >60 [facility] Comment on above: Non- GFR Calc Platelets bldOrdered By: Main Oliver on 06-24-2023 Platelets (Bld) [#/Vol] 249 10*3/uL 150-450 [facility] Serum or plasma calcium marvin urement (mass/volume)Ordered By: Raoul Oliver on 06-24-2023 Calcium [Mass/Vol] 8.3 mg/dL 8.5-10.1 [facility] Serum or plasma creatinine m easurement (mass/volume)Ordered By: Raoul Oliver on 06-24-2023 Creatinine [Mass/Vol] 1.11 mg/dL 0.70-1.30 [facility] Comment on above: The validity of the calculated GFR & GFRAA in patients over 70 years has not been determined. Clinical correlation is essential. Serum or plasma urea nitroge n measurement (mass/volume)Ordered By: Raoul Oliver on 06-24-2023 Urea nitrogen [Mass/Vol] 10 mg/dL 7-18 [facility] Thin prep Papanicolaou smear with manual screeningOrdered By: Raoul Oliver on 06-24-2023 Thin prep Papanicolaou smear with manual screening 3 5-15 [facility] Basophil percentageOrdered B y: Ethan Martinez on 06-23-2023 Basophil percentage 0 SEEN /hpf 0-5 [facility] Bilirubin Test strip Ql (U)O rdered By: Ethan Martinez on 06-23-2023 Bilirubin Ql (U) Negative Negative [facility] Ketones Test strip Ql (U)Ord ered By: Remus Michelle on 06-23-2023 Ketones Ql (U) Negative Negative [facility] Mucus LM Ql (Urine sed)Order ed By: Remus Michelle on 06-23-2023 Mucus Ql (Urine sed) 0 SEEN /hpf [facility] Nitrite Test strip Ql (U)Ord ered By: Remus Michelle on 06-23-2023 Nitrite Ql (U) Negative Negative [facility] No Panel InformationOrdered By: Raoul Oliver on 06-23-2023 Thyroid Stimulating Hormone (TSH) 4.71 uIU/mL 0.358-3.74 [facility] No Panel InformationOrdered By: Ethan Martinez on 06-23-2023 Troponin I High Sensitivity 6 pg/mL 3.0-78.0 [facility] Comment on above: Please Note: New Doming[place] t Units and Gender Specific Reference Ranges. For more information see Policy Stat Procedure [place] High Sensitivity Troponin (TNIH) and attachments. Protein Test strip Ql (U)Ord ered By: Remus Martinez on 06-23-2023 Protein Ql (U) 15 mg/dl Negative [facility] Squamous epithelial cells de tection in urine sediment by light microscopyOrdered By: Ethan Martinez on 06-23-2023 Epithelial cells.squamous LM Ql (Urine sed) 0-5 SEEN /hpf 0-5 [facility] Urine blood detectionOrdered By: Remus Martinez on 06-23-2023 RBC Ql (U) Negative Negative [facility] RBC Ql (U) 0 SEEN /hpf 0-5 [facility] Urine clarityOrdered By: Rem us Michelle on 06-23-2023 Clarity (U) Clear Clear [facility] Urine color determinationOrd ered By: Remus Martinez on 06-23-2023 Color (U) Yellow Yellow [facility] Urine glucose detectionOrder ed By: Remus Michelle on 06-23-2023 Glucose Ql (U) 100 mg/dl Normal [facility] Urine leukocyte esterase det ection by dipstickOrdered By: Remus Martinez on 06-23-2023 Leukocyte esterase Test strip Ql (U) Negative Negative [facility] Urine pHOrdered By: Ethan Romero gur on 06-23-2023 pH (U) 6.0 [pH] 5.0 - 8.0 [facility] Urine sediment bacteria coun t by microscopy (number/high power field)Ordered By: Ethan Michelle on 06-23-2023 Bacteria LM.HPF (Urine sed) [#/Area] 0 /[HPF] None Seen [facility] Urine specific gravity measu rementOrdered By: Ethan Martinez on 06-23-2023 Specific gravity (U) [Rel density] 1.015 1.002-1.030 [facility] Urobilinogen Auto test strip Ql (U)[facility]: [facility] 06-23-2023 Urobilinogen Ql (U) Normal mg/dl Normal [facility] CT CHEST WO IVCONon 11-25-19 [facility] US SCREENING FOR AAAon 11-15 [facility] LUNG VOLUMESon 09-13-2022 [facility] NITRIC OXIDE, EXHALEDon 08-18 [facility] SPIROMETRY - BASELINE AND PO ST DILATORon 09-13-2022 ERV BOX (L) 0.43 L [facility] ZWQ38-46% POST (L/S) 1.49 L/S [facility] GLT38-42% PRE (L/S) 2.39 L/S [facility] FEV1 PRE (L) 1.98 L [facility] FEV1/FVC POST (%) 78 % [facility] FEV1/FVC PRE (%) 84 % [facility] FEV1_POST (L) 1.84 L [facility] FRC Box (L) 1.89 L [facility] FVC POST (L) 2.35 L [facility] FVC PRE (L) 2.37 L [facility] IC BOX (L) 1.91 L [facility] PEF POST (L/S) 5.55 L/S [facility] PEF PRE (L/S) 5.58 L/S [facility] RV Box (L) 1.42 L [facility] RV/TLC Box (%) 39 % [facility] TLC Box (L) 3.68 L [facility] VC (L) BOX 2.40 L [facility] CT CHEST WO IVCONon 11-24-19 Radiology Result ACTIONABLE Abnormal [facility] XR Chest PA and Lateralon IMPRESSION: Left upper lobe nodular opacity could be infectious. Lungs are otherwise clear. Recommend follow-up with nonemergent chest CT. Blackjack Pit Boss: JUJU Transcribe Date/Time: Aug 13 2021 4:33P Dictated by : POORNIMA CANAS MD This examination was interpreted and the report reviewed and electronically signed by: POORNIMA CANAS MD on Aug 13 2021 4:35PM EST DIVISION OF RADIOLOGY * * *Final Report* [...] No pulmonary edema. DIVISION OF RADIOLOGY Provider, Rian [facility] - 08/13/2021 * * *Final Report* * [...] clear. Recommend follow-up with nonemergent chest CT. Blackjack Pit [facility] Transcribe Date/Time: Aug 13 2021 4:33P Dictated by : POORNIMA CANAS MD This examination was interpreted and the report reviewed and electronically signed by: POORNIMA CANAS MD on Aug 13 2021 4:35PM EST [facility] Radiology Study observation (narrative) [facility] XR Chest PA and LateralOrder ed By: [facility] Provider on 08-13-2021 [facility] Vital Signs Date Time Vital Sign Value Performing Clinician Facility 10-20-2023 14:22-0400 Body weight 91.35 kg Usman Patel MD Work Phone: [facility] 10-20-2023 14:22-0400 Diastolic blood pressure 74 mm[Hg] Usman Patel MD Work Phone: [facility] 10-20-2023 14:22-0400 Heart rate 82 /min Usman Patel MD Work Phone: [facility] 10-20-2023 14:22-0400 Respiratory rate 18 /min Usman Patel MD Work Phone: [facility] 10-20-2023 14:22-0400 Systolic blood pressure 122 mm[Hg] Usman Patel MD Work Phone: [facility] 08-28-2023 10:36-0500 Body weight 91.63 kg Aiden Mccrary MD Work Phone: [facility] 08-28-2023 10:36-0500 Diastolic blood pressure 64 mm[Hg] Aiden Mccrary MD Work Phone: [facility] 08-28-2023 10:36-0500 Heart rate 71 /min Aiden Mccrary MD Work Phone: [facility] 08-28-2023 10:36-0500 Respiratory rate 16 /min Aiden Mccrary MD Work Phone: [facility] 08-28-2023 10:36-0500 SaO2% (BldA) [Mass fraction] 100 % Aiden Mccrary MD Work Phone: [facility] 08-28-2023 10:36-0500 Systolic blood pressure 151 mm[Hg] Aiden Mccrary MD Work Phone: [facility] 06-25-2023 13:23-0500 Heart rate 78 /min Dr. Usman Patel Work Phone: [facility] 06-25-2023 13:23-0500 Respiratory rate 18 /min Dr. Usman Patel Work Phone: [facility] 06-25-2023 11:36-0500 Body temperature 98 [degF] Dr. Usman Patel Work Phone: [facility] 06-25-2023 11:36-0500 Diastolic blood pressure 61 mm[Hg] Dr. Usman Patel Work Phone: [facility] 06-25-2023 11:36-0500 SaO2% (BldA) [Mass fraction] 96 % Dr. Usman Patel Work Phone: [facility] 06-25-2023 11:36-0500 Systolic blood pressure 113 mm[Hg] Dr. Usman Patel Work Phone: [facility] 06-23-2023 20:06-0500 Body height 162.[address] Usman Patel Work Phone: [facility] 06-23-2023 20:06-0500 Body mass index (BMI) [Ratio] 34.2 kg/m2 Dr. Usman Patel Work Phone: [facility] 06-23-2023 20:06-0500 Body weight 90.[address] Usman Patel Work Phone: [facility] 05-17-2023 13:59-0400 Body weight 90.27 kg Shayna Frias APRN.MANAGER GIFT Work Phone: [facility] 05-17-2023 13:59-0400 Diastolic blood pressure 76 mm[Hg] Shayna Frias MECHANICAL SPREADER OPERATOR.MANAGER GIFT Work Phone: [facility] 05-17-2023 13:59-0400 Heart rate 88 /min Shayna Frias MECHANICAL SPREADER OPERATOR.MANAGER GIFT Work Phone: [facility] 05-17-2023 13:59-0400 Respiratory rate 16 /min Shayna Frias MECHANICAL SPREADER OPERATOR.MANAGER GIFT Work Phone: [facility] 05-17-2023 13:59-0400 SaO2% (BldA) [Mass fraction] 98 % Shayna Frias MECHANICAL SPREADER OPERATOR.MANAGER GIFT Work Phone: [facility] 05-17-2023 13:59-0400 Systolic blood pressure 110 mm[Hg] Shayna Frias APRN.MANAGER GIFT Work Phone: [facility] 02-24-2023 19:04-0400 Body mass index (BMI) [Ratio] 34.2 kg/m2 [facility] 02-24-2023 19:04-0400 Body weight 93.3 kg [facility] 02-24-2023 13:55-0400 Body height 165.1 cm [facility] 02-24-2023 13:55-0400 Body temperature 97.1 [degF] [facility] 02-24-2023 13:55-0400 Diastolic blood pressure 80 mm[Hg] [facility] 02-24-2023 13:55-0400 Heart rate 72 /min [facility] 02-24-2023 13:55-0400 Respiratory rate 18 /min [facility] 02-24-2023 13:55-0400 SaO2% (BldA) [Mass fraction] 99 % [facility] 02-24-2023 13:55-0400 Systolic blood pressure 159 mm[Hg] [facility] 09-13-2022 13:21-0500 Body height 160 cm Pulm Wstr Work Phone: [facility] 09-13-2022 13:21-0500 Body weight 92.08 kg Pulm Wstr Work Phone: [facility] 09-13-2022 13:21-0500 Heart rate 74 /min Pulm Wstr Work Phone: [facility] 09-13-2022 13:21-0500 Respiratory rate 16 /min Pulm Wstr Work Phone: [facility] 09-13-2022 13:21-0500 SaO2% (BldA) [Mass fraction] 96 % Pulm Wstr Work Phone: [facility] 09-08-2022 14:01-0500 Body temperature 98.01 [degF] Shayna Frias APRN.MANAGER GIFT Work Phone: [facility] 02-23-2023 14:01-0500 Body weight 93.44 kg Shayna Tannhof MECHANICAL SPREADER OPERATOR.MANAGER GIFT Work Phone: [facility] 09-08-2022 14:01-0500 Diastolic blood pressure 74 mm[Hg] Shayna Tannhof MECHANICAL SPREADER OPERATOR.MANAGER GIFT Work Phone: [facility] 09-08-2022 14:01-0500 Heart rate 104 /min Shayna Tannhof MECHANICAL SPREADER OPERATOR.MANAGER GIFT Work Phone: [facility] 09-08-2022 14:01-0500 Respiratory rate 16 /min Shayna Tannhof MECHANICAL SPREADER OPERATOR.MANAGER GIFT Work Phone: [facility] 09-08-2022 14:01-0500 SaO2% (BldA) [Mass fraction] 96 % Shayna Tannhof MECHANICAL SPREADER OPERATOR.MANAGER GIFT Work Phone: [facility] 09-08-2022 14:01-0500 Systolic blood pressure 126 mm[Hg] Shayna Tannhof MECHANICAL SPREADER OPERATOR.MANAGER GIFT Work Phone: [facility] 08-24-2022 16:11-0500 Body temperature 98.1 [degF] Shayna Tannhof MECHANICAL SPREADER OPERATOR.MANAGER GIFT Work Phone: [facility] 08-24-2022 16:11-0500 Body weight 90.72 kg Shayna Tannhof MECHANICAL SPREADER OPERATOR.MANAGER GIFT Work Phone: [facility] 08-24-2022 16:11-0500 Diastolic blood pressure 90 mm[Hg] Shayna Tannhof MECHANICAL SPREADER OPERATOR.MANAGER GIFT Work Phone: [facility] 08-24-2022 16:11-0500 Heart rate 99 /min Shayna Tannhof MECHANICAL SPREADER OPERATOR.MANAGER GIFT Work Phone: [facility] 08-24-2022 16:11-0500 Respiratory rate 16 /min Shayna Tannhof MECHANICAL SPREADER OPERATOR.MANAGER GIFT Work Phone: [facility] 08-24-2022 16:11-0500 SaO2% (BldA) [Mass fraction] 97 % Shayna Tannhof MECHANICAL SPREADER OPERATOR.MANAGER GIFT Work Phone: [facility] 08-24-2022 16:11-0500 Systolic blood pressure 138 mm[Hg] Shayna Altagracia QUAN Work Phone: [facility] 05-17-2022 14:44-0400 Body weight 92.9 kg Usman Patel MD Work Phone: [facility] 05-17-2022 14:44-0400 Diastolic blood pressure 90 mm[Hg] Usman Patel MD Work Phone: [facility] 05-17-2022 14:44-0400 Heart rate 74 /min Usman Patel MD Work Phone: [facility] 05-17-2022 14:44-0400 Respiratory rate 16 /min Usman Patel MD Work Phone: [facility] 05-17-2022 14:44-0400 Systolic blood pressure 154 mm[Hg] Usman Patel MD Work Phone: [facility] Encounters Encounter Date Encounter Type Care Provider Facility Start: 03-18-2025 ambulatory Jolly MÉNDEZ Fac ility:[facility] Start: 03-18-2025 Registered Referred Jolly Macdonald OFFICE ELECTRICIAN-C -[facility] Start: 02-18-2025 End: 02-18-[address] iMcaela Holder MD -[facility] Work Phone: Start: 02-18-2025 End: 02-18-[address] Usman Patel MD Work Phone: [facility] Start: 02-18-2025 Registered Referred Micaela Holder MD -[facility] Start: 02-06-2025 End: 02-06-[address] Usman Patel MD Work Phone: [facility] Start: 02-06-2025 End: 02-06-2025 Patient encounter procedure Poornima LOTT -[facility] Work Phone: Start: 01-14-2025 ambulatory Usman Patel Facilit y:[facility] Start: 01-14-2025 Registered Referred Jolly Macdonald NP-C [facility] Start: 01-07-2025 ambulatory Micaela MÉNDEZ Fa cility:[facility] Start: 01-07-2025 Registered Referred Micaela Holder MD -[facility] Start: 12-24-2024 End: 12-24-[address] Usman Patel MD Work Phone: [facility] Start: 12-24-2024 End: 12-24-[address] Micaela Holder MD -[facility] Work Phone: Start: 12-17-2024 ambulatory Jolly MÉNDEZ Fac ility:[facility] Start: 12-17-2024 Registered Referred Jolly Macdonald OFFICE ELECTRICIAN-C [facility] Start: 11-26-2024 End: 11-26-[address] Usman Patel MD Work Phone: [facility] Work Phone: Start: 11-26-2024 End: 11-26-2024 Departed Referred Micaela Holder MD [facility] Start: 11-26-2024 End: 11-26-2024 ambulatory Micaela MÉNDEZ Facility:[facility] Start: 11-19-2024 End: 11-19-[address] Usman Patel MD Work Phone: [facility] Work Phone: Start: 11-19-2024 End: 11-19-2024 Departed Referred Jolly Macdonald OFFICE ELECTRICIAN-C [facility] Start: 11-19-2024 Registered Referred Jolly Macdonald OFFICE ELECTRICIAN-C -[facility] Start: 11-18-2024 End: 11-19-[address] Usman Patel MD Work Phone: [facility] Start: 11-18-2024 End: 11-18-2024 Patient encounter procedure Jolly Macdonald NP-[facility] Work Phone: Start: 10-15-2024 End: 10-15-[address] Usman Patel MD Work Phone: [facility] Work Phone: Start: 10-15-2024 End: 10-15-[address] Micaela Holder MD -[facility] Work Phone: Start: 10-15-2024 End: 10-15-2024 Departed Referred Jolly Macdonald OFFICE ELECTRICIAN-C -[facility] Start: 10-15-2024 Registered Referred Jolly Macdonald OFFICE ELECTRICIAN-C -[facility] Start: 10-15-2024 End: 10-15-2024 ambulatory Jolly MÉNDEZ Facility:[facility] Start: 10-04-2024 End: 10-04-[address] Usman Patel MD Work Phone: [facility] Work Phone: Start: 10-04-2024 End: 10-04-2024 [facility] Start: 10-04-2024 [facility] Start: 10-04-2024 End: 10-04-2024 ambulatory Efewongbe Gallo OLS Facility:[facility] Start: 09-17-2024 End: 09-17-[address] Usman Patel MD Work Phone: [facility] Work Phone: Start: 09-17-2024 End: 09-17-2024 [facility] Start: 09-17-2024 End: 09-17-2024 ambulatory Efewvinicio Holder OLS Facility:[facility] Start: 09-03-2024 ambulatory Efchet MÉNDEZ Fa cility:[facility] Start: 09-03-2024 [facility] Start: 08-20-2024 ambulatory Efewongbe Loriee OLS Fa cility:[facility] Start: 08-20-2024 Registered Referred Micaela Holder MD -[facility] Start: 07-23-2024 ambulatory Efnannetteongbe Loriee OLS Fa cility:[facility] Start: 07-23-2024 Registered Referred Micaela Holder MD -[facility] Start: 07-02-2024 End: 07-02-2024 Telephone encounter Usman Patel MD Work Phone: [facility] Comment on above: Forms (90 day order for [place]) Start: 06-18-2024 End: 06-18-2024 ambulatory Efnannetteongbe Loriee OLS Facility:[facility] Start: 05-17-2024 ambulatory Efewongbe Loriee OLS Fa cility:[facility] Start: 05-10-2024 ambulatory Efewongbe Loriee OLS Fa cility:[facility] Start: 05-09-2024 End: 05-10-2024 Telephone encounter Usman Patel MD Work Phone: [facility] Comment on above: Forms ([place]) Start: 05-03-2024 ambulatory Efewongbe Loriee OLS Fa cility:[facility] Start: 04-26-2024 ambulatory Efewongbe Oleghe OLS Fa cility:[facility] Start: 04-19-2024 ambulatory Efewongbe Olekamilahe OLS Fa cility:[facility] Start: 04-12-2024 ambulatory Efewongbe Olekamilahe OLS Fa cility:[facility] Start: 04-08-2024 ambulatory Efewongbe Oleghe OLS Fa cility:[facility] Start: 03-28-2024 End: 04-05-2024 ambulatory Melissa Burton Facility:[facility] Start: 03-25-2024 End: 03-25-2024 ambulatory Usman Patel Facility:[facility] Start: 03-05-2024 End: 03-05-2024 Refill Usman Patel MD Work Phone: [facility] Comment on above: Med Change Request Start: 03-04-2024 End: 03-04-2024 Refill Usman Patel MD Work Phone: [facility] Comment on above: Refill Request Start: 02-06-2024 Telephone encounter Usman mccarthy MD Work Phone: [facility] Comment on above: Forms ([facility] order) Start: 10-20-2023 End: 10-20-2023 ambulatory USMAN PATEL Facility:[facility] Start: 10-20-2023 End: 10-20-2023 Patient encounter procedure Usman Patel MD Work Phone: [facility] Comment on above: Hypothyroidism, acqu ired (Primary Dx); Balance problem; Dizziness; Generalized convulsive epilepsy (HCC); COPD with chronic bronchitis (HCC); Cerebral palsy, unspecified type (HCC) Start: 10-19-2023 Telephone encounter Usman mccarthy MD Work Phone: [facility] Comment on above: Forms (Orders from [place] - 90 day) Start: 09-19-2023 End: 09-19-2023 ambulatory AIDEN MCCRARY Facility:[facility] Start: 09-05-2023 End: 09-05-2023 ambulatory AIDEN MCCRARY Facility:[facility] Start: 08-28-2023 End: 08-28-2023 ambulatory [facility] Facility:[facility] Start: 08-28-2023 End: 08-28-2023 Patient encounter procedure Aiden Mccrary MD Work Phone: Cardiology Comment on above: Syncope and collapse ; Vasovagal syncope; Palpitations Start: 08-15-2023 End: 08-15-2023 ambulatory [facility] Facility:[facility] Start: 08-08-2023 End: 08-08-2023 ambulatory USMAN PATEL Facility:[facility] Start: 07-19-2023 End: 07-19-2023 ambulatory [facility] Facility:[facility] Start: 07-19-2023 End: 07-19-2023 ambulatory [facility] Facility:[facility] Start: 07-14-2023 End: 07-15-2023 ambulatory USMAN PATEL Facility:[facility] Start: 06-27-2023 Patient Outreach Usman zuñiga MD Work Phone: [facility] Comment on above: Transition Of Care Start: 06-25-2023 Non-patient / Non-visit Dr. Allison Patel Work Phone: [facility] Work Phone: Start: 06-24-2023 Non-patient / Non-visit Dr. Allison Patel Work Phone: [facility] Work Phone: Start: 06-23-2023 Non-patient / Non-visit Dr. Allison Patel Work Phone: [facility] Work Phone: Start: 06-23-2023 End: 06-25-2023 Evaluation and management of inpatient Dr. Usman Patel Work Phone: [facility]-Medical Surgical 3 Work Phone: Start: 06-23-2023 End: 06-25-[address] Usman Patel Work Phone: [facility] Work Phone: Start: 06-23-2023 Telephone encounter Usman mccarthy MD Work Phone: [facility] Comment on above: Patient Update Start: 06-01-2023 Refill Usman humphries MD Work Phone: [facility] Comment on above: Refill Request Start: 05-17-2023 End: 05-17-2023 Patient encounter procedure Shayna Frias APRN.CNP Work Phone: [facility] Comment on above: Generalized convulsi ve epilepsy (HCC) (Primary Dx); Imbalance; COPD with chronic bronchitis; Hypothyroidism, acquired; Cerebral palsy, unspecified type (HCC); Prostate cancer screening; Dyslipidemia, goal LDL below 100 Start: 02-27-2023 Telephone encounter Usman mccarthy MD Work Phone: [facility] Comment on above: Patient Update (Fall ) Start: 02-24-2023 End: 02-24-2023 Emergency department patient visit [facility]Emergency [facility] Work Phone: Start: 11-24-2022 End: 11-24-2022 Subsequent hospital visit by physician [facility] (I-Stat) Work Phone: Cat Scan Comment on above: Lung nodules [R91.8] Start: 11-15-2022 End: 11-15-2022 Subsequent hospital visit by physician Us [facility] Work Phone: Radiology Comment on above: Screening for AAA (a bdominal aortic aneurysm) [Z13.6] Start: 09-19-2022 Telephone encounter Shayna mahoney MECHANICAL SPREADER OPERATOR.MANAGER GIFT Work Phone: [facility] Comment on above: Results (PFT's) Start: 09-13-2022 End: 09-13-2022 ambulatory Pulm Lab [facility] Work Phone: [facility] Comment on above: Spirometry Start: 09-13-2022 End: 09-13-2022 [facility] Work Phone: [facility] Start: 09-08-2022 End: 09-08-2022 Patient encounter procedure Shayna Frias APRN.MANAGER GIFT Work Phone: [facility] Comment on above: Cough, unspecified t ype (Primary Dx); SOB (shortness of breath); COPD with chronic bronchitis (HCC) Start: 09-07-2022 Telephone encounter Usman mccarthy MD Work Phone: [facility] Comment on above: Appointment Start: 08-25-2022 Telephone encounter Shayna mahoney APRN.MANAGER GIFT Work Phone: [facility] Comment on above: Results (COVID/flu.) Start: 08-24-2022 End: 08-24-2022 Patient encounter procedure Shayna Tannhof MECHANICAL SPREADER OPERATOR.MANAGER GIFT Work Phone: [facility] Comment on above: Sinobronchitis (Prim uvaldo Dx) Start: 07-12-2022 Telephone encounter Usman mccarthy MD Work Phone: [facility] Comment on above: Forms ([facility]) Start: 06-10-2022 Telephone encounter Usman mccarthy MD Work Phone: [facility] Comment on above: Results Start: 05-24-2022 Telephone encounter Fritz fritz MECHANICAL SPREADER OPERATOR.MANAGER GIFT Work Phone: [facility] Comment on above: Results Start: 05-17-2022 End: 05-17-2022 Patient encounter procedure Usman Patel MD Work Phone: [facility] Comment on above: Hypothyroidism, acqu ired (Primary Dx); Need for influenza vaccination; Need for COVID-19 vaccine; Generalized convulsive epilepsy (HCC); Imbalance; COPD with chronic bronchitis (HCC); Obesity, Class II, BMI 35-39.9; Elevated PSA; Cerebral palsy, unspecified type (HCC) Start: 12-08-2021 ambulatory Lora chauhan RN Work Phone: [employer] Comment on above: [employer] [facility] (Enrollment Outreach) Start: 11-23-2021 End: 11-23-2021 Subsequent hospital visit by physician [facility] (I-Stat) Work Phone: Cat Scan Comment on above: Lung nodules [R91.8] Start: 11-12-2021 Telephone encounter Usman mccarthy MD Work Phone: [facility] Comment on above: Results Start: 08-13-2021 End: 08-13-2021 Subsequent hospital visit by physician Xr [facility] Work Phone: Radiology Comment on above: Suspected [...] 09-13-2022 Nitric oxide gas determination Shayna Frias MECHANICAL SPREADER OPERATOR.MANAGER GIFT Work Phone: Start: 09-13-2022 Brncdilat rspse spmt ry pre&post-brncdilat admn Shayna Frias MECHANICAL SPREADER OPERATOR.MANAGER GIFT Work Phone: Start: 05-17-2022 INFLUENZA SEASONAL QUADRIVALENT HIGH DOSE AGE 65+ Usman Patel MD Work Phone: Start: 05-17-2022 [employer] COVI D-19 BIVALENT BOOSTER VACCINE, AGE 12+ YR Usman Patel MD Work Phone: Start: 11-23-2021 Ct thorax w/o contra st material Usman Patel MD Work Phone: Start: 08-13-2021 Radiologic exam ches t 2 views Brenda Oneal MECHANICAL SPREADER OPERATOR.MANAGER GIFT Work Phone: Start: 05-10-2021 Adult depression scr eening assessment Usman Patel MD Work Phone: Start: 03-03-2020 Lipid 1996 panel - S arabella or Plasma Shayna rFias MECHANICAL SPREADER OPERATOR.MANAGER GIFT Work Phone: Start: 02-01-2016 Colonoscopy Usman woodruff MD Work Phone: Plan of Treatment Date Care Activity Detail Author Start: 11-14-2032 Urine microalbumin profile [facility] Start: 06-05-2028 Lipid 1996 panel - S arabella or Plasma Lipid Screening [facility] Start: 06-05-2028 Lipid panel Lipid Screening [facility] Start: 10-19-2026 Diabetes Screening Diabetes Screenin g [facility] Start: 06-05-2026 Diabetes Screening Diabetes Screenin g [facility] Start: 01-31-2026 Colonoscopy COLONOSCOPY [facility] Start: 01-31-2026 COLORECTAL CANCER SCREENING COLORECTAL CANCER SCREENING [facility] Start: 01-31-2026 Screening for malign ant neoplasm of colon [facility] Start: 03-03-2025 Lipid 1996 panel - S arabella or Plasma Lipid Screening [facility] Start: 03-03-2025 LIPID SCREEN LIPID SCREEN [facility] Start: 11-08-2024 DIABETES SCREEN DIABETES SCREEN [facility] Start: 11-08-2024 Diabetes Screening Diabetes Screenco g [facility] Start: 10-19-2024 Annual PCP Team Special Services Coordinator main Disease Visit Annual PCP Team Chronic Disease Visit [facility] Start: 10-19-2024 Covid-19 Vaccine () Covid-19 Vaccine () [facility] Comment on above: Postponed from 03/17 (Declined at this time) Start: 07-08-2024 End: 07-08-2024 Patient encounter procedure 07/08/2024 3:20 PM EST Office Visit Cardiology [address] [place] [id number] Maria Guadalupe Shin MD [address], [address] [place] [address] follow up Cardiology Comment on above: follow up Start: 07-04-2024 Annual PCP Team Special Services Coordinator main Disease Visit Annual PCP Team Chronic Disease Visit [facility] Start: 05-17-2024 Annual PCP Team Special Services Coordinator main Disease Visit Annual PCP Team Chronic Disease Visit [facility] Start: 04-19-2024 End: 04-19-2024 Patient encounter procedure 04/19/2024 2:00 PM EDT Office Visit [facility] [address] [place] [place] [id number] Usman Patel MD [address] [place] [address] 6 month follow up [facility] Comment on above: 6 month follow up Start: 03-17-2024 Covid-19 Vaccine ( season) Covid-19 Vaccine ( season) [facility] Start: 03-17-2024 Influenza vaccination Influenza Vacc ine (#1) [facility] Start: 03-13-2024 End: 03-13-2024 Patient encounter procedure 03/13/2024 3:30 PM EDT Office Visit Neurology [address] [place] [address] Temitope Lara PA-C [address] [place] [address] 3 month follow up Neurology Comment on above: 3 month follow up Start: 11-15-2023 ANNUAL PCP TEAM JOB PLACEMENT SPECIALIST MAIN DISEASE VISIT ANNUAL PCP TEAM CHRONIC DISEASE VISIT [facility] Start: 09-08-2023 ANNUAL PCP TEAM JOB PLACEMENT SPECIALIST MAIN DISEASE VISIT ANNUAL PCP TEAM CHRONIC DISEASE VISIT [facility] Start: 08-24-2023 ANNUAL PCP TEAM JOB PLACEMENT SPECIALIST MAIN DISEASE VISIT ANNUAL PCP TEAM CHRONIC DISEASE VISIT [facility] Start: 07-17-2023 Advance Directive Discussion Advance Directive Discussion [facility] Start: 07-17-2023 Behavioral Health Screening Behavioral Health Screening [facility] Start: 07-17-2023 Depression Assessment Depression Ass essment [facility] Start: 06-25-2023 Patient discharge [facility] Start: 06-23-2023 End: 06-23-2023 Following clinical pathway protocol [facility] Start: 06-23-2023 Ambulation without limitation [facility] Start: 06-23-2023 Assessment of risk o f venous thromboembolism [facility] Start: 06-23-2023 Insertion of cathete r into peripheral vein [facility] Start: 06-23-2023 Providing care accor ding to standard [facility] Start: 06-23-2023 Referral to occupati onal therapist [facility] Start: 06-23-2023 Referral to service [facility] Start: 06-23-2023 [facility] Start: 06-23-2023 Admission procedure [facility] Start: 06-23-2023 Inhalation therapy procedure [facility] Start: 05-17-2023 ANNUAL PCP TEAM JOB PLACEMENT SPECIALIST MAIN DISEASE VISIT ANNUAL PCP TEAM CHRONIC DISEASE VISIT [facility] Start: 05-17-2023 End: 08-16-2023 carBAMazepine [Mass/volume] in Serum or Plasma CARBAMAZEPI/TEGRETOL Lab Routine Generalized convulsive epilepsy (HCC) Expected: 05/17/2023, Expires: 08/16/[address] [facility] Work Phone: Comment on above: Expected: 05/17/2023 , Expires: 08/16/2023 Start: 05-17-2023 End: 08-16-2023 CBC W Auto Differential panel - Blood CBC + DIFF Lab Routine Generalized convulsive epilepsy (HCC) Expected: 05/17/2023, Expires: 08/16/[address] [facility] Work Phone: Comment on above: Expected: 05/17/2023 , Expires: 08/16/2023 Start: 05-17-2023 End: 08-16-2023 Comprehensive metabolic 2000 panel - Serum or Plasma COMP METABOLIC PANEL Lab Routine Generalized convulsive epilepsy (HCC) Expected: 05/17/2023, Expires: 08/16/[address] [facility] Work Phone: Comment on above: Expected: 05/17/2023 , Expires: 08/16/2023 Start: 05-17-2023 End: 08-16-2023 levETIRAcetam [Mass/volume] in Serum or Plasma LEVETIRACETAM Lab Routine Generalized convulsive epilepsy (HCC) Expected: 05/17/2023, Expires: 08/16/[address] [facility] Work Phone: Comment on above: Expected: 05/17/2023 , Expires: 08/16/2023 Start: 05-17-2023 End: 08-16-2023 Lipid 1996 panel - Serum or Plasma LIPID PANEL BASIC Lab Routine Dyslipidemia, goal LDL below 100 Expected: 05/17/2023, Expires: 08/16/[address] [facility] Work Phone: Comment on above: Expected: 05/17/2023 , Expires: 08/16/2023 Start: 05-17-2023 End: 08-16-2023 PSA/PROSTSPECAG SCRN PSA/PROSTSPECAG SCRN Lab Routine Prostate cancer screening Expected: 05/17/2023, Expires: 08/16/[address] [facility] Work Phone: Comment on above: Expected: 05/17/2023 , Expires: 08/16/2023 Start: 05-17-2023 End: 08-16-2023 Thyrotropin [Units/volume] in Serum or Plasma TSH BLD Lab Routine Hypothyroidism, acquired Expected: 05/17/2023, Expires: 08/16/[address] [facility] Work Phone: Comment on above: Expected: 05/17/2023 , Expires: 08/16/2023 Start: 03-17-2023 Covid-19 Vaccine () Covid-19 Vaccine () [facility] Start: 03-17-2023 Influenza vaccination [facility] Start: 11-23-2022 Influenza vaccination LUNG CANCER SC REENING [facility] Start: 11-14-2022 End: 01-14-2023 carBAMazepine [Mass/volume] in Serum or Plasma CARBAMAZEPI/TEGRETOL Lab Routine Generalized convulsive epilepsy (HCC) Expected: 11/14/2022 (Approximate), Expires: 01/14/[address] [facility] Work Phone: Comment on above: Expected: 11/14/2022 (Approximate), Expires: 01/14/2023 Start: 11-14-2022 End: 01-14-2023 Comprehensive metabolic 2000 panel - Serum or Plasma COMP METABOLIC PANEL Lab Routine Obesity, Class II, BMI 35-39.9 Expected: 11/14/2022 (Approximate), Expires: 01/14/[address] [facility] Work Phone: Comment on above: Expected: 11/14/2022 (Approximate), Expires: 01/14/2023 Start: 11-14-2022 End: 01-14-2023 levETIRAcetam [Mass/volume] in Serum or Plasma LEVETIRACETAM Lab Routine Generalized convulsive epilepsy (HCC) Expected: 11/14/2022 (Approximate), Expires: 01/14/[address] [facility] Work Phone: Comment on above: Expected: 11/14/2022 (Approximate), Expires: 01/14/2023 Start: 11-14-2022 End: 01-14-2023 Lipid 1996 panel - Serum or Plasma LIPID PANEL BASIC Lab Routine Obesity, Class II, BMI 35-39.9 Expected: 11/14/2022 (Approximate), Expires: 01/14/[address] [facility] Work Phone: Comment on above: Expected: 11/14/2022 (Approximate), Expires: 01/14/2023 Start: 11-14-2022 End: 01-14-2023 Thyrotropin [Units/volume] in Serum or Plasma TSH BLD Lab Routine Hypothyroidism, acquired Expected: 11/14/2022 (Approximate), Expires: 01/14/[address] [facility] Work Phone: Comment on above: Expected: 11/14/2022 (Approximate), Expires: 01/14/2023 Start: 11-08-2022 ANNUAL PCP TEAM JOB PLACEMENT SPECIALIST MAIN DISEASE VISIT ANNUAL PCP TEAM CHRONIC DISEASE VISIT [facility] Start: 09-14-2022 COVID-19 VACCINE (5 - Moderna series) COVID-19 VACCINE (5 - Moderna series) [facility] Start: 09-08-2022 End: 10-08-2023 LUNG VOLUMES LUNG VOLUMES PFT Routine SOB (shortness of breath) COPD with chronic bronchitis (HCC) Expected: 09/08/2022, Expires: 10/08/[address] [facility] Work Phone: Comment on above: Expected: 09/08/2022 , Expires: 10/08/2023 Start: 07-24-2022 End: 09-23-2022 Thyrotropin [Units/volume] in Serum or Plasma TSH BLD Lab Routine Hypothyroidism, acquired Expected: 07/24/2022 (Approximate), Expires: 09/23/[address] [facility] Work Phone: Comment on above: Expected: 07/24/2022 (Approximate), Expires: 09/23/2022 Start: 07-17-2022 ADVANCE DIRECTIVE DISCUSSION ADVANCE DIRECTIVE DISCUSSION [facility] Start: 07-17-2022 DEPRESSION ASSESSMENT DEPRESSION ASS ESSMENT [facility] Start: 05-17-2022 End: 07-17-2022 Prostate specific Ag [Mass/volume] in Serum or Plasma [facility] Work Phone: Comment on above: Expected: 05/17/2022 , Expires: 07/17/2022 Start: 05-17-2022 End: 07-17-2022 Thyrotropin [Units/volume] in Serum or Plasma [facility] Work Phone: Comment on above: Expected: 05/17/2022 , Expires: 07/17/2022 Start: 05-10-2022 Adult depression scr [facility] assessment DEPRESSION SCREENING [facility] Start: 11-30-2021 COVID-19 VACCINE (4 - Booster for Moderna series) COVID-19 VACCINE (4 - Booster for Moderna series) [facility] Start: 07-17-2021 DEPRESSION ASSESSMENT DEPRESSION ASS ESSMENT [facility] Start: 2010 RSV Vaccine (1 - 1-d ose 60+ series) RSV Vaccine (1 - 1-dose 60+ series) [facility] Start: 2010 RSV Vaccine (1 - Ris k 60-74 years 1-dose series) RSV Vaccine (1 - Risk 60-74 years 1-dose series) [facility] Start: 2005 Influenza vaccination LUNG CANCER SC REENING [facility] Start: 2000 SHINGRIX VACCINE (1 of 2) DUMONT GRIX VACCINE (1 of 2) [facility] Start: 1995 COLOGUARD (FIT-DNA) COLOGUARD (FIT-D NA) [facility] Start: [address] [facility] Start: 1995 FECAL OCCULT BLOOD FECAL OCCULT BLOO D [facility] Start: 1995 Screening for malign ant neoplasm of colon [facility] Start: 1995 SIGMOIDOSCOPY SIGMOIDOSCOPY [facility] Start: 1980 Zoledronic acid therapy ALPHA- 1 ANTITRYPSIN DEFICIENCY SCREENING [facility] Start: 1969 Urine microalbumin profile DTAP,TDAP ,TD (1 - Tdap) [facility] Start: 1968 Anxiety Screening Anxiety Screening [facility] Start: 1968 Depression Screening Depression Scre ening [facility] Start: 1956 PNEUMOCOCCAL: 65+ (1 - PCV) PNEUMOCOCCAL: 65+ (1 - PCV) [facility] Start: 1950 ABDOMINAL AORTIC ANE URYSM SCREENING ABDOMINAL AORTIC ANEURYSM SCREENING [facility] End: 08-28-2024 Echocardiography ECHO Cardiology Routine Syncope and collapse Palpitations 1 Occurrences starting 08/28/2023 until 08/28/[address] [facility] Work Phone: Comment on above: 1 Occurrences starti ng 08/28/2023 until 08/28/2024 Influenza virus A an d B RNA and SARS-CoV-2 (COVID-19) N gene panel - Respiratory specimen by JOY with probe detection COVID WITH FLUA+B, ROUTINE Microbiology Routine Sinobronchitis Ordered: 08/24/[address] [facility] Work Phone: Comment on above: Ordered: 08/24/2022 End: 10-08-2023 NITRIC OXIDE, EXHALED NITRIC OXIDE, EXHALED PFT Routine SOB (shortness of breath) COPD with chronic bronchitis (HCC) 1 Occurrences starting 09/08/2022 until 10/08/[address] [facility] Work Phone: Comment on above: 1 Occurrences starti ng 09/08/2022 until 10/08/2023 OUTSIDE VENDOR CARDI AC OUTPATIENT EXTENDED RHYTHM RECORDING (WITHOUT TELEMETRY) OUTSIDE VENDOR CARDIAC OUTPATIENT EXTENDED RHYTHM RECORDING (WITHOUT TELEMETRY) Holter Routine Syncope and collapse Palpitations Ordered: 08/28/[address] [facility] Work Phone: Comment on above: Ordered: 08/28/2023 Patient Education ED Fracture, Foot [place] [facility] Work Phone: Patient referral [facility] Work Phone: End: 10-08-2023 SPIROMETRY - BASELINE AND POST DILATOR SPIROMETRY - BASELINE AND POST DILATOR PFT Routine SOB (shortness of breath) COPD with chronic bronchitis (HCC) 1 Occurrences starting 09/08/2022 until 10/08/[address] [facility] Work Phone: Comment on above: 1 Occurrences starti ng 09/08/2022 until 10/08/2023 End: 08-28-2024 US Carotid arteries - bilateral US CAROTID ARTERIES [facility] Vascular Lab Routine Syncope and collapse 1 Occurrences starting 08/28/2023 until 08/28/[address] [facility] Work Phone: Comment on above: 1 Occurrences starti ng 08/28/2023 until 08/28/2024 [facility] Immunizations Immunization Date Immunization Notes Care Provider [facility] 06-24-2023 Influenza High-Dose Quadrivalent Dr. Usman Patel Work Phone: [facility] 06-24-2023 influenza virus vacc ine, unspecified formulation Usman Patel MD Work Phone: [facility] 11-14-2022 tetanus toxoid, redu silvia diphtheria toxoid, and acellular pertussis vaccine, adsorbed Usman Patel MD Work Phone: [facility] 05-17-2022 COVID-19 booster vaccine, age 12+ yr, bivalent (PFIZER-BIONTECH) Usman Patel MD Work Phone: [facility] 05-17-2022 influenza, high-dose , quadrivalent vaccine (FLUZONE HIGH DOSE QUADRIVALENT) Usman Patel MD Work Phone: [facility] 05-17-2022 influenza virus vacc ine, unspecified formulation Shayna Frias APRN.CNP Work Phone: [facility] 08-02-2021 COVID-19 vaccine, ag e 12+ yr (PFIZER-BIONTECH - BEYER TOP) Usman Patel MD Work Phone: [facility] Work Phone: 05-10-2021 influenza, high-dose , quadrivalent vaccine (FLUZONE HIGH DOSE QUADRIVALENT) Usman Patel MD Work Phone: [facility] 09-11-2020 COVID-19 vaccine, fu ll dose (MODERNA) Usman Patel MD Work Phone: [facility] 08-14-2020 COVID-19 vaccine, fu ll dose (MODERNA) Usman Patel MD Work Phone: [facility] 05-07-2020 influenza, high dose seasonal, preservative-free Usman Patel MD Work Phone: [facility] 05-07-2020 influenza, high-dose , quadrivalent vaccine (FLUZONE HIGH DOSE QUADRIVALENT) Usman Patel MD Work Phone: [facility] 05-21-2019 influenza, high dose seasonal, preservative-free Usman Patel MD Work Phone: [facility] 07-26-2018 influenza, high dose seasonal, preservative-free Usman Patel MD Work Phone: [facility] 05-12-2017 influenza, high dose seasonal, preservative-free Usman Patel MD Work Phone: [facility] 04-16-2017 influenza, high dose seasonal, preservative-free Usman Patel MD Work Phone: [facility] 03-17-2017 Influenza virus vaccine [facility] 03-17-2017 influenza, seasonal, injectable, preservative free Usman Patel MD Work Phone: [facility] 12-02-2016 pneumococcal polysaccharide vaccine, 23 valent Usman Patel MD Work Phone: [facility] 05-23-2016 influenza, high dose seasonal, preservative-free Usman Patel MD Work Phone: [facility] 11-30-2015 pneumococcal conjuga te vaccine, 13 valent Usman Patel MD Work Phone: [facility] 07-27-2013 pneumococcal polysaccharide vaccine, 23 valent Usman Patel MD Work Phone: [facility] 07-27-2013 pneumococcal vaccine , unspecified formulation [facility] 05-27-2013 influenza virus vacc ine, unspecified formulation Usman Patel MD Work Phone: [facility] 05-17-2013 Influenza virus vaccine [facility] 07-27-2009 novel influenza-H1N1 -09, preservative-free, injectable Usman Patel MD Work Phone: [facility] 05-08-2009 influenza virus vacc ine, whole virus Usman Patel MD Work Phone: [facility] 05-22-2008 influenza virus vacc ine, unspecified formulation Usman Patel MD Work Phone: [facility] 05-15-2007 influenza virus vacc ine, whole virus Usman Patel MD Work Phone: [facility] Payers Date Payer Category Payer Unknown [id number] 2024 Unknown [id number] 2023 Self-pay [id number] 2023 Unknown [id number] 2022 Medicare [id number] 2020 Medicare HUMANA MEDICARE HUMANA GOLD PLUS [id number] 2020-Present [phone] [address] [address] [place] [address] O [id number] 2020 Medicare [id number] [id number] 2001 Medicare MEDICARE PART A B [id number] Unknown [id number] 2.16.840.1.831115.3.579.2.462 Unknown [id number] 2.16.840.1.077951.3.579.2.462 Unknown [id number] 2.16.840.1.252182.3.579.2.462 Unknown [id number] 2.16.840.1.542398.3.579.2.462 Unknown [id number] 2.840.1.032856.3.579.2.462 Unknown [id number] 2.840.1.500832.3.579.2.462 Unknown [id number] 2.840.1.308466.3.579.2.462 Unknown [id number] 2.840.1.012386.3.579.2.462 Unknown [id number] 2.840.1.153016.3.579.2.462 Unknown [id number] 2.840.1.766646.3.579.2.462 Unknown [id number] 2.840.1.815617.3.579.2.462 Unknown [id number] 2.840.1.530637.3.579.2.462 Unknown [id number] 2.840.1.335234.3.579.2.462 Unknown [id number] 2.840.1.868160.3.579.2.462 Unknown [id number] 2.840.1.309359.3.579.2.462 Unknown [id number] 2.840.1.149386.3.579.2.462 Unknown [id number] 2.16840.1.513148.3.579.2.462 Unknown [id number] 2.840.1.875856.3.579.2.462 Unknown [id number] 2.840.1.176983.3.579.2.462 Unknown [id number] 2.16.840.1.046714.3.579.2.462 Unknown [id number] 2.16.840.1.464742.3.579.2.462 Unknown [id number] 2.16.840.1.171374.3.579.2.462 Unknown [id number] 2.16.840.1.317220.3.579.2.462 Unknown [id number] 2.16.840.1.882026.3.579.2.462 Unknown [id number] 2.16.840.1.015165.3.579.2.462 Unknown [id number] 2.16.840.1.626099.3.579.2.462 Unknown [id number] 2.16.840.1.651285.3.579.2.462 Unknown [id number] 2.16.840.1.979824.3.579.2.462 Unknown [id number] 2.16.840.1.077150.3.579.2.462 Unknown [id number] 2.16.840.1.334956.3.579.2.462 Social History Date Type Detail Facility Start: 05-17-2022 End: 03-28-2024 Tobacco smoking status NHIS Ex-smoker [facility] Work Phone: Start: 1968 End: 05-09-2007 History of tobacco use Current smoker [facility] Work Phone: Start: 11-08-2021 End: 10-20-2023 Alcohol intake Current drinker of alcohol (finding) [facility] Start: 11-01-2016 History SDOH Alcohol Comment Very occasionally. [facility] Start: 11-01-2016 End: 05-17-2022 Tobacco Comment Father smoked in childhood home. Prior roomate smoked. [facility] Start: 1950 Sex Assigned At Not on file C [facility] Start: 07-14-2021 End: 05-17-2022 Exposure to SARS-CoV-2 (event) Not sure [facility] Start: 1968 End: 05-09-2007 History of tobacco use Cigarette Smoker [facility] Start: 05-17-2022 End: 05-17-2023 Cigarettes smoked current (pack per day) - Reported 1.5 [facility] Work Phone: Start: 11-01-2016 End: 05-17-2022 Tobacco use and exposure Smokeless tobacco non-user [facility] Start: 02-24-2023 End: 06-23-2023 Tobacco smoking status NHIS Unknown if ever smoked [facility] Start: 08-30-2017 None [facility] Start: 02-24-2023 Alone [facility] Start: 02-24-2023 Non-smoker [facility] Start: 1950 Sex Assigned At Male [facility] Start: 11-14-2022 End: 05-17-2023 Tobacco use panel [facility] Work Phone: Adult Depression Screening Assessment 0 [facility] Work Phone: Start: 10-17-2024 End: 10-23-2024 Sex Male (finding) [facility] Goals Date Patient Goal Desired Activity /State Functional Status Date Assessment Result Facility 06-25-2023 Functional status Ambulates [facility] Work Phone: Mental Status Date Assessment Result Facility 06-25-2023 Cognitive function Voice/Name [facility] Work Phone: Clinical Notes 06-27-2014 to 07-02-2024 Telephone Encounter - Julieta Mckay MA - 07/02/2024 11:52 AM ESTTelephone Encounter - Julieta Mckay MA - 07/02/2024 11:52 AM ESTTelephone Encounter - Norma Rogers MA - 07/02/2024 9:24 AM EST Note Date & Type Note Facility 07-02-2024 Telephone encounter Note Form signed and faxed back to number below. Julieta Mckay MA [facility] 07-02-2024 Miscellaneous Notes Form signed and faxed back to number below. Julieta Mckay MA Type of letter/form/fax request - order from [facility] [employer] [facility] Form received from fax on 1 floor and placed on MD desk (Dr. Patel) for completion. Completed form needs to be faxed to [employer] at [phone]. Route to [place] when form completed for processing documented in this encounter [facility] 07-02-2024 Telephone encounter Note Type of letter/form/fax request - order from [employer] [facility] Form received from fax on 1 floor and placed on MD desk (Dr. Patel) for completion. Completed form needs to be faxed to [employer] at [phone]. Route to [place] when form completed for processing [facility] 05-10-2024 Telephone encounter Note Faxed. Norma Rogers MA [facility] 05-10-2024 Miscellaneous Notes Faxed. Norma Rogers MA Type of form: 90 day order for Adult Day Care Services through [employer] Form received via fax When form is completed, Fax form to [phone] Form has been forwarded to Physician Desk: Dr. Jorge Mckay MA documented in this encounter [facility] 05-09-2024 Telephone encounter Note Type of form: 90 day order for Adult Day Care Services through [facility] Form received via fax When form is completed, Fax form to [phone] Form has been forwarded to Physician Desk: Dr. Jorge Mckay MA [facility] 04-05-2024 Note [facility] Medical Records Department [address] [place] [address] Discharge Summary 04/05/24 1442 MR#: [id number] Acct: [id number] Name: J LUIS MADERA Rep #: [id number] : 1950 73 From: Kike Malave MD PCP: Dr. Usman Ptael MD Status:ADM EDUARDO Location: [place] [address] Providers Date of Admission: 03/28/24 Date of [...] got the pre-CERT and is going to long term. Discharge meds reconciliation done. No acute issues. [...] Microbiology Data 09 (more content not included)... [facility] 03-05-2024 Telephone encounter Note OK to refill as ordered Usman Patel MD [facility] 03-05-2024 Miscellaneous Notes OK to refill as ordered Usman Patel MD Images from the original note were not included. See prescription sig note from Pharmacy regarding medication use. documented in this encounter [facility] 03-05-2024 Telephone encounter Note Images from the original note were not included. See prescription sig note from Pharmacy regarding medication use. T [facility] 03-04-2024 Telephone encounter Note The following approved [...] a day. Authorizing Provider: USMAN PATEL MA [facility] 03-04-2024 Miscellaneous Notes The following approved medication [...] mouth two times a day. Amara Farr [facility] March 04, 2024 2:19 PM documented in this encounter [facility] 03-04-2024 Telephone encounter Note OK to refill as ordered Usman Patel MD [facility] 03-04-2024 Telephone encounter Note Prescription Refill Information [...] by mouth two times a day. Amara Almaraz March 04, 2024 2:19 PM [facility] 02-06-2024 Telephone encounter Note Form faxed. Norma Rogers MA [facility] 02-06-2024 Miscellaneous Notes Form faxed. Norma Rogers MA Type of letter/form/fax request - 90 day order for adult daycare Form received from fax on 1 floor and placed on desk (Dr. Patel) for completion. Completed form needs to be faxed to [facility] at [phone].. Route to [place] when form completed for processing documented in this encounter [facility] 02-06-2024 Telephone encounter Note Type of letter/form/fax request - 90 day order for adult daycare Form received from fax on 1 floor and placed on desk (Dr. Patel) for completion. Completed form needs to be faxed to [facility] at [phone].. Route to [place] when form completed for processing [facility] 10-20-2023 History of Presen t illness Narrative [...] (HCC) 06/27/2014 Peroneal DVT (deep venous thrombosis) ([facility]) 09/05/2013 Right spastic hemiparesis (HCC) 06/27/2014 Screening [...] 1-dose 60+ series) Never done Covid-19 Vaccine( season) due on 03/17/2023 Advance Directive Discussion [...] Dizziness - ICD9: 780.4, ICD10: R42 Follow iwth Neuro PT 4. Generalized convulsive epilepsy (HCC) [...] Usman Patel MD documented in this encounter [facility] 10-20-2023 Note HNO ID: [id number] Author: USMAN PATEL MD Service: ? Author [...] Vaccine(2 - Td (more content not included)... [facility] 10-19-2023 Miscellaneous Notes Form signed and faxed back to information below. Julieta Mckay MA Type of form: 90 day order from [employer] Form received via fax When form is completed, Fax form to [phone] Form has been forwarded to Physician Desk: Dr. Jorge Mckay MA documented in this encounter [facility] 10-05-2023 Note HNO ID: [id number] Author: JAGRUTI TSANG PT Service: ? Author Type: Physical Therapist Type: Progress Notes Filed: 10/05/2023 07:53 Note Text: Summary: PT DC 10/05/2023 [facility] PHYSICAL THERAPY DISCONTINUANCE [...] scheduled additional follow-up appointments. Jagruti Tsang, BHAVYA [facility] 08-28-2023 Note HNO ID: [id number] Author: RACHELLE PEARL, CONCHITA Service: ? Author Type: Registered Nurse Type: Progress Notes Filed: 08/28/2023 11:43 Note Text: EVENT MONITOR DISPOSABLE PATCH INSTRUCTIONS Patient Name: J Luis Madera [facility] Number: [id number] Skin prepped and cleansed with alcohol Patch secured to prepped area Monitor Activated Serial #: [id number] Patient Instructed: Prescribed order timeframe Bathing guidelines Usage of event button and diary documentation Return of monitor at the end of prescribed order Call with problems [phone] or [phone]. [phone] Patient expresses a good understanding of instructions Rachelle Pearl RN [facility] 08-28-2023 History of Presen t illness Narrative EVENT MONITOR DISPOSABLE PATCH INSTRUCTIONS Patient Name: J Luis [facility] Number: [id number] Skin prepped and cleansed with alcohol Patch secured to prepped area Monitor Activated Serial #: [id number] Patient Instructed: Prescribed order timeframe Bathing guidelines Usage of event button and diary documentation Return of monitor at the end of prescribed order Call with problems [phone] or [phone]. [phone] Patient expresses a good understanding of instructions Rachelle Pearl RN Images from the original note were not included. [facility] SE[facility]IONAL CARDIOLOGY Cardiology ([facility]) [address] [id number] OUTPATIENT VISIT DATE 08/28/2023 PRIMARY CARE PHYSICIAN: Usman Patel [address] [place] [address] REFERRING PHYSICIAN: Temitope Lara [address] [place] [address] CHIEF COMPLAINT: Dizziness HISTORY OF PRESENT ILLNESS: [...] Aiden Mccrary MD documented in this encounter [facility] 08-28-2023 Instructions Aiden Mccrary MD - 08/28/2023 10:48 AM EST We are ordering an Echocardiogram, Carotid ultrasound and a heart monitor documented in this encounter [facility] 08-28-2023 Note HNO ID: [id number] Author: AIDEN MCCRARY MD Service: ? Author Type: Physician Type: Progress Notes Filed: 08/28/2023 11:43 Note Text: [facility]ARDIOLOGY Cardiology ([facility]) [address] [facility] [address] OUTPATIENT VISIT DATE 08/28/2023 PRIMARY CARE PHYSICIAN: Usman Patel [address] [place] [address] REFERRING PHYSICIAN: Temitope Lara [address] [facility] [address] CHIEF COMPLAINT: Dizziness HISTORY OF PRESENT ILLNESS: [...] artery are norm (more content not included)... [facility] 08-15-2023 Note HNO ID: [id number] Author: MARAH THOMAS RT(Franco) Service: ? Author Type: Technologist Type: Progress [...] PATIENT PRESENTS WITH AN IMPLANTABLE OR ATTACHED SCHEDULING ADMINISTRATOR: No RADIOLOGY DEPARTMENT: MR; Exam(s) Completed: Spine: Cervical spine PERIPHERAL IV DATA: Not applicable SIGNED BY: RT Joelle(R) August 15, 2023 1:58 PM [facility] 08-08-2023 Note HNO ID: [id number] Author: MARY KAY BAIRES, PT, DPT Service: [...] he is requesting to transfer to the [facility] which is closer to home. He demonstrates [...] Patient to be seen for Therapeutic exercise (73448), Neuromuscular re-education (70389), Therapeutic activities (21857), Self-mcfp management (55423), Gait Training (25867) PLAN FOR NEXT VISIT: Gait and balance training. Functional strengthening. Transfer of Care Due To: Closer to Home Patient transferring care to: [facility] SUBJECTIVE: J Luis returns for first follow up since his eval; he is limited in ability to attend PT at this clinic due to distance from home and reliance on others for transportation. He would like to transfer to the [facility]. He denies falls since his last [...] and purpose f (more content not included)... [facility] 07-19-2023 Note HNO ID: [id number] Author: Temitope Lara PA-C Service: ? Author Type: Physician Marble Finisher Type: Progress Notes Filed: 07/19/2023 4:16 PM Note Text: Neurology Outpatient Clinic Date: July 19, 2023 Patient Name: J Luis Madera Referring physician: Usman Patel [address] [facility] [address] Consult requested for dizziness by Dr. Patel. Recommendations will be communicated via shared medical record or US mail. Primary physician: Usman Patel [address] [place] [address] Reason for Evaluation: Dizziness and seizures Subjective [...] He is here for established care with [facility] epilepsy department again. No seizure was reported [...] niece called EMS and he was transported [facility]. Reported that his dizziness gets worse with standing but denies any presyncope or lightheaded sensation, described more of a room spinning dizziness. Improves when he sits down or lays down, has difficulty stating how often it occurs but notes that he falls from this dizziness once or twice a month. MRI obtained at [facility] showed no acute infarct and stable chronic changes. Patient does not remember much about his admission, states that no scans were obtained and has difficulty remembering. Notes that he has passed out in the past secondary to this dizziness and he estimates the last occurrence was 6 to 12 months ago. 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 States that his last seizure was about a year a (more content not included)... [facility] 07-14-2023 Note HNO ID: [id number] Author: Elsa Joaquin PT Service: ? Author [...] Planned: 8 Planned Treatment Interventions: Therapeutic exercise (07454), Neuromuscular re-education (01956), Therapeutic activities (37709) PLAN FOR NEXT VISIT: neuro training, LE flexibility, balance ex, and neuro tx Patient demonstrates good understanding of plan of care and treatment. The above goals and plan of care were discussed and agreed upon by patient/family. SUBJECTIVE: pt reports he is not sure why he was sent to come here vs [place], due to the long drive, here and [...] Flexibility Flexibility: Hip (more content not included)... [facility] 06-27-2023 History of Presen t illness Narrative Noted; will discuss at his follow up appt Usman Patel MD TRANSITION CARE MANAGEMENT (TCM) INITIAL CONTACT Portable Irrigation Operator Outreach Provider Action/FYI: Patient calls and states [...] might be hidden SUMMARY: -Pt discharged from [facility] on 06/25/23. -Admitted for: dizziness Do [...] hospitalization: Care Everywhere documented in this encounter [facility] 06-26-2023 Miscellaneous Notes I agree with the [...] weak and he needs to go to long term, she can not care for him, she can not get him down the steps to first floor. Advised to call squad and have him go to ER for evaluation, would need 3 day stay at the hospital and then get long term placement. documented in this encounter [facility] 06-25-2023 Discharge summary Note Date/Time June 25, 2023 12:25pm [facility] Medical Records Department [address] [place] [address] Discharge Summary 06/25/23 1223 MR#: [id number] Acct: [id number] Name: J LUIS MADERA Rep #:[id number] : 1950 73 From: Kike Putnam PCP: Dr. Usman Patel MD Status:ADARSH CLARK Location: [place] [address] Providers Date of Admission: 06/23/23 Date of [...] history of cerebralpalsy: Patient is admitted to MedSur floor. Etiology unclear but patient is asymptomatic [...] Self Care Charges/Coding Visit Charges Inpatient E&M: 48295 Disch Hosp >30min 06/25/23 1228 <Electronically signed by Kike Malave MD> Cosigner Signature (if applicable): CC: Dr. Usman Patel MD; Dr. Kike Malave MD~ Signed [facility] Work Phone: 1(193) 224-245612-10-2023 Discharge summary Author Kike Malave [facility] June 25, 2023 12:23pm Note Date/Time June 25, 2023 11:53am [facility] Medical Records Department [address] [place] [address] Instructions for Home/Discharge Instructions 06/25/23 1000 MR#: [id number] Acct: [id number] Name: J LUIS MADERA Rep #:[id number] : 1950 73 From: Kike Putnam PCP: Dr. Usman Patel MD Status:ADARSH CLARK Discharge Instructions Diet Discharge Diet: No restrictions [...] Primary Care Provider: Usman Patel Consulting Providers: Raolu Oliver Instructions Additional Instructions / Restrictions: Advised [...] can be placed): Home, Self Care 06/25/23 2015<Electronically signed by Kike Malave MD>Kike Malave MD CC: Dr. Usman Patel MD; Dr. Raoul Oliver MD ~ Signed [facility] Work Phone: 1(579) 843-283812-09-2023 Progress note Author Kike Malave [facility] June 24, 2023 12:00pm Note Date/Time June 24, 2023 7 :37am [facility] Medical Records Department [address] [place] [address] Progress Note - Hospitalist 06/24/23 0735 MR#: [id number] Acct: [id number] Name: J LUIS MADERA Rep #:[id number] : 1950 73 From: Kike Putnam PCP: Dr. Usman Patel MD Status:AD M EDUARDO Location: MS3 [id number] Reason for Visit Reason for Visit: Diagnoses [...] (Auto) 71.2 H, Lymph % (Auto)16.1 L, [place] % (Auto) 8.6, Eos % (Auto) 2.3, [...] Clarity Clear, Urine pH 6.0, Ur Specific Jud 1.015, Urine Protein 15 H, Urine Glucose [...] % (Auto) 57.0, Lymph % (Auto) 24.4, [place] % (Auto) 11.4 H, Eos % (Auto) [...] Signed: Jani Solorio MD at 19:12 EST Reading Location ID and State: [facility] / [place] Tel , Service support , Physical Exam Narrative Seen and examined. [...] history of cerebralpalsy: Patient is admitted to MedSur floor. Etiology unclear but patient is asymptomatic [...] DVT: Heparin Charges/Coding Visit Charges Inpatient E&M: 18856 Subs Hosp L2 06/24/23 1200 <Electronically signed by Kike Malave MD> Cosigner Signature (if applicable): CC: ~ Signed [facility] Work Phone: 1(874) 101-712412-09-2023 Discharge summary Author Ethan Martinez [facility] June 23, 2023 11:16pm Note Date/Time June 23, 2023 2 :12pm [facility] Medical Records Department [address] [place] [address] Emergency Department Summary 06/23/23 MR#: [id number] Acct: [id number] Name: J LUIS MADERA Rep #:[id number] : 1950 73 From: Ethan Martinez DO PCP: Dr. Usman Patel MD Status:AD M [facility] Location: [place] [address] HPI History of Present Illness Chief Complaint: Dizziness [...] palsy but normally ambulates on his own. [facility] Medical History (Updated 06/23/23 @ 16:36 by [...] 71.2 H Lymph % (Auto) 16.1 L [place] % (Auto) 8.6 Eos % (Auto) 2.3 [...] Clarity Clear Urine pH 6.0 Ur Specific Jud 1.015 Urine Protein 15 H Urine Glucose [...] Signed: Vj Fisher MD at 14:57 EST Reading Location ID and State: [facility] / [place] , Service support , EKG Initial EKG: Attestation: I personally reviewed and interpreted this EKG as follows: Comments: Sinus rhythm with a rate of 78 bpm with no acute ST segment changes Discharge Plan Dx/Rx/DC Orders Clinical Impression: Dizziness, Hx of cerebral palsy, Generalized weakness Disposition Disposition: Acute Care Hospital [facility] What to do if you have Problems For any increased pain, shortness of breath, bleeding, nausea or vomiting, chestpain, or any unexpected problems, contact your Primary Care Provider. Call [facility] ([phone]) or report to the closest Emergency Room. Call 911 if necessary. 06/23/23 5366 <Electronically signed by Ethan Martinez DO> Cosigner Signature (if applicable): CC: Dr. Usman Patel MD ~ Signed [facility] Work Phone: 1(830) 582-550612-08-2023 History and physical note Author Raoul Oliver [facility] June 23, 2023 6:57pm Note Date/Time June 23, 2023 5 :22pm [facility] Medical Records Department [address] [place] [address] H&P Exam - Hospitalist 06/23/23 1715 MR#: [id number] Acct: [id number] Name: J LUIS MADERA Rep #:[id number] : 1950 73 From: Raoul ly MD PCP: Dr. Usman Patel MD Status:AD M [facility] Location: [place] [id number] HPI - General General Date of Admission: [...] (Auto) 71.2 H, Lymph % (Auto)16.1 L, [place] % (Auto) 8.6, Eos % (Auto) 2.3, [...] Clarity Clear, Urine pH 6.0, Ur Specific Jud 1.015, Urine Protein 15 H, Urine Glucose [...] with colleagues Charges/Coding Visit Charges Inpatient E&M: 90781 Init Hosp L3 06/23/231856 <Electronically signed by Raoul Oliver MD> Cosigner Signature (if applicable): CC: Dr. Usman Patel MD; Dr. Raoul Oliver MD~ Signed [facility] Work Phone: [phone]) 526-272611-16-2023 Miscellaneous Notes* Telephone Encounter - Renee Quintanilla [...] you. Tyra Frazier LPN. documented in this encounterGrand [facility]11-01-[facility] Instructions* Patient Instructions* Shayna Frias APRN.CNP - 05/17/2023 2:16 PM EDT Get fasting labs done, no food 10 hours prior, water and black coffee are okay Get flu vaccine next week when you are feeling better Continue medications as prescribed Follow up in 6 months or sooner as needed documented in this encounterGrand Lake [facility]11-01-2023 History of Present illness Narrative* Shayna Frias APRN.CNP - 05/17/2023 2:00 PM EDT This is [...] like his [facility] so he [...] discussed and patient voices understanding. Shayna Frias APRN.MANAGER GIFT documented in this encounterGrand Lake [facility]08-14-2023 Miscellaneous Notes* Telephone Encounter - Renee Quintanilla [...] reports that he fell on Monday02/24/23 at [facility] when he was getting up to go the restroom. Notes he made a turn to quickly and lost his balance. States that his right foot buckled on him, causing him to go sideways causing him to fall on his bad foot. He broke a couple of bones in his ankle of his already bad food. Was seen at [facility] ED, this is where they gave [...] AM EDT Patient fell 02/24 at the [facility], he hurt his right foot. They advised him to let Dr. Patel know. Patient also has some questions regarding the brace they gave him. Please review and advise. Kimmy Webb documented in this encounterGrand Lake [facility]05-11-2023 History of Present illness Narrative* Terri Tomas [...] 24, 2022 4:07 PM documented in this encounterGrand Lake [facility]05-02-2023 History of Present illness Narrative* Brenda Yusuf [...] 15, 2022 2:02 PM documented in this encounterGrand Lake [facility]03-06-2023 Miscellaneous Notes* Telephone Encounter - Jolly Laguerre LPN - 09/19/2022 10:00 AM EST TC to pt. LM to call office, ask for triage nurse to get results. Jolly Laguerre LPN * Telephone Encounter - Shayna Frias APRN.MANAGER GIFT - 09/19/2022 9:39 AM EST Can you [...] refer him over to pulmonology. Shayna Frias APRN.CNP documented in this encounterGrand Lake Joint [facility]02-28-2023 Procedure note* CHELSY Tovar - 09/13/2022 1:23 PM ESTAssociated Order(s): NITRIC [...] Nitric Oxide (ppb) 09/13/2022 22.0 NAME: CHELSY Tovar PATIENT NAME: J Luis Madera DATE: September 13, 2022 TIME: 1:23 PM documented in this encounterGrand Lake Joint Township [facility] Hospital02-28-2023 History of Present illness Narrative* CHELSY Tovar - 09/13/2022 1:21 PM EST PULM FUNCTION SMARTBLOCK: Provider: Shayna Frias APRN.CNP Assisting Tech: CHELSY Tovar Spirometry w/BD: 1 LV - Box: 1 Exhaled Nitric Oxide: 1 documented in this encounterGrand Lake [facility] Hospital02-23-2023 History of Present illness Narrative* Shayna Frias APRN.MANAGER GIFT - 09/08/2022 2:20 PM EST This is [...] discussed and patient voices understanding. Shayna Frias APRN.MANAGER GIFT This note was partially generated using [employer] recognition system. Note was reviewed for accuracy. There may be minor misspellings or grammar miscues with [employer] voice recognition. documented in this encounterGrand Lake Joint [facility] Hospital02-23-2023 Instructions* Patient Instructions* Shayna Frias APRN.CNP - 09/08/2022 2:15 PM EST Schedule Chest CT scan Complete pulmonary tests Continue to take all medication as prescribed. Follow up pending test results or sooner as needed. documented in this encounterGrand Lake [facility]02-22-2023 Miscellaneous Notes* Telephone Encounter - Salima Teixeira RN - 09/07/2022 4:40 PM EST Insurance was added. Pt was scheduled. * Telephone Encounter - Salima Teixeira RN - 09/07/2022 4:28 PM EST Pt was transferred to scheduling so they could put his insurance information into the computer. A hold was placed on Shayna Frias OFFICE ELECTRICIAN 220 pm appointment tomorrow for the Pt. Please schedule Pt once insurance info is in. documented in this encounterGrand Lake [facility]02-09-2023 Miscellaneous Notes* Telephone Encounter - Jolly Laguerre [...] you. Shayna Frias APRN.CNP documented in this encounterGrand Lake Joint Township [facility]02-08-2023 Instructions* Patient Instructions* Shayna Frias APRN.CNP - [...] to prevent muscle stiffness. documented in this encounterGrand Lake [facility]02-08-2023 History of Present illness Narrative* Shayna Frias APRN.CNP - 08/24/2022 4:00 PM EST This is a 72 year old male who presents today with: Patient presents with: Acute Visit: upper repiratory HISTORY OF PRESENT ILLNESS: J Luis Maedra is a 72 year old male. Patient [...] palsy (HCC) 06/27/2014 COPD with chronic bronchitis ([facility]) 12/02/2016 Debility Diarrhea Hypoxia 2018 Infantile cerebral [...] or wheezing. - May continue to use [id number] cold and cough medications as needed. - [...] discussed and patient voices understanding. Shayna Frias APRN.MANAGER GIFT This note was partially generated using [employer] recognition system. Note was reviewed for accuracy. There may be minor misspellings or grammar miscues with [employer] voice recognition. documented in this encounterGrand Lake [facility] Hospital12-27-2022 Miscellaneous Notes* Telephone Encounter - Norma Rogers Ma - 07/12/2022 3:02 PM EST faxed * Telephone Encounter - Norma Rogers Ma - 07/12/2022 12:36 PM EST Patient has been identified by name and date of : Yes, Provider Jorge Date 07/12/22 Time 12:36 pm Type of form: plan of care Form received via: [employer] When form is completed, fax form to fax number provided. Form has been forwarded to: Provider's desk. Provider name: Jorge Rogers Ma documented in this encounterGrand Lake Joint Township [facility]11-25-2022 Miscellaneous Notes* Telephone Encounter - Roger Pfeiffer RN - 06/10/2022 3:04 PM EST See 05-24-22 encounter. Patient returned call and given provider's message. 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 Reports there was a week he missed taking the levothyroxine 88 mcg, because he had to wait until his money came. Patient agreeable to return tolab in 2 mths for recheck. documented in this encounterGrand Lake Joint [facility]11-10-2022 Miscellaneous Notes* Telephone Encounter - Norma Rogers Ma - 05/26/2022 9:17 AM EST [employer] message sent to pt, asking them to [...] MA * Telephone Encounter - Fritz Granados APRN.CNP - 05/24/2022 2:19 PM EST Please let [...] stomach. For Thyroid Authorizing Provider: FRITZ GRANADOS APRN.CNP documented in this encounterGrand Lake Joint [facility]11-01-2022 History of Present illness Narrative* Usman Patel MD - 05/17/2022 3:00 PM EDT Chief Complaint Patient presents with: 6 Month Exam Immunizations: Flu vaccination HPI J Luis Madera is a 72 year old male who presents here today for 6 month follow up. Goes to [facility] 3 days/week. He states that the nurse at [facility] is working with him on trying to [...] obstructive pulmonary disease based on initial evaluation ([facility]) 2018 Previous Surgical History PAST SURGICAL HISTORY Procedure Laterality Date COLONOSCOPY FLX DX W/COLLJ SPEC WHEN PFRMD 02/01/2016 Repeat 01/2026 COLSC FLX W/RMVL OF TUMOR POLYP LESION SNARE TQ 02/05/10 COLSC FLX W/RMVL OF TUMOR POLYP LESION SNARE TQ 04/02/12 CRANIECTOMY/CRANIOTOMY EXPL SUPRATENTORIAL 1979 Craniotomy LAPAROSCOPY COLECTOMY PARTIAL W/ANASTOMOSIS 03-17-10 PAST [...] Past Histories independently gathered by the clinical clinical support nurse and the remaining scribed note accurately describes [...] PM. Norma Rogers Ma documented in this encounterGrand Lake Joint [facility]05-25-2022 History of Present illness Narrative* Lora Des, RN - 12/08/2021 1:51 PM EDT [employer] Enrollment Provider Action/FYI: MyChart message introducing [employer] Monitoring program sent to pt. Will outreach pt x1-2 days. Patient referred by: [facility] Berenice Contact made with patient: No - Unable to leave message: (Keep encounter open and attempt 2nd outreach in two business days from today). END OUTREACH Lora Nunes RN December 08, 2021 1:53 PM documented in this encounterGrand Lake Joint Township [facility]05-10-2022 History of Present illness Narrative* RT Nimisha(R) - 11/23/2021 2:20 PM EDT Radiology Service [...] IV DATA: Not applicable SIGNED BY: RT Michael(Franco) November 23, 2021 3:23 PM documented in this encounterGrand Lake Joint Township [facility] Hospital04-29-2022 Miscellaneous Notes* Telephone Encounter - Norma Rogers Ma - 11/12/2021 2:03 PM EDT Pt notified of results via [employer]. Norma Rogers Ma * Telephone Encounter - Usman Patel MD - 11/12/2021 2:01 PM EDT Please notify patient that his blood test results look OK; stay on the same medications and follow up in 6 months as planned Usman Patel MD documented in this encounterGrand Lake Joint Township [facility] Hospital01-28-2022 History of Present illness Narrative* Sylvia Gates [...] 13, 2021 4:21 PM documented in this encounterGrand Lake Joint Township District [facility] Hospital12-12-2014 History of Past illness Narrative* Problem Noted Date Resolved Date Partial small bowel obstruction 06/27/2014 12/02/2016 Peroneal DVT (deep venous thrombosis) 09/05/2013 06/27/2014 ASA CLASS III 05/10/2002 10/30/2018 documented as of this encounter (statuses as of 11/12/2021) [facility]12-12-[facility] History of Past illness Narrative* Problem Noted Date Resolved Date Partial small bowel obstruction 06/27/2014 12/02/2016 Peroneal DVT (deep venous thrombosis) 09/05/2013 06/27/2014 ASA CLASS III 05/10/2002 10/30/2018 documented as of this encounter (statuses as of 11/24/2021) [facility]12[facility] of Past illness Narrative* Problem Noted Date Resolved Date Partial small bowel obstruction 06/27/2014 12/02/2016 Peroneal DVT (deep venous thrombosis) 09/05/2013 06/27/2014 ASA CLASS III 05/10/2002 10/30/2018 documented as of this encounter (statuses as of 12/08/2021) [facility] of Past illness Narrative* Problem Noted Date Resolved Date Partial small bowel obstruction 06/27/2014 12/02/2016 Peroneal DVT (deep venous thrombosis) 09/05/2013 06/27/2014 ASA CLASS III 05/10/2002 10/30/2018 documented as of this encounter (statuses as of 05/17/2022) [facility] of Past illness Narrative* Problem Noted Date Resolved Date Partial small bowel obstruction 06/27/2014 12/02/2016 Peroneal DVT (deep venous thrombosis) 09/05/2013 06/27/2014 ASA CLASS III 05/10/2002 10/30/2018 documented as of this encounter (statuses as of 05/27/2022) [facility] of Past illness Narrative* Problem Noted Date Resolved Date Partial small bowel obstruction 06/27/2014 12/02/2016 Peroneal DVT (deep venous thrombosis) 09/05/2013 06/27/2014 ASA CLASS III 05/10/2002 10/30/2018 documented as of this encounter (statuses as of 07/18/2022) [facility] of [facility] illness Narrative* Problem Noted Date Resolved Date Partial small bowel obstruction 06/27/2014 12/02/2016 Peroneal DVT (deep venous thrombosis) 09/05/2013 06/27/2014 ASA CLASS III 05/10/2002 10/30/2018 documented as of this encounter (statuses as of 08/25/2022) [facility] of [facility] illness Narrative* Problem Noted Date Resolved Date Partial small bowel obstruction 06/27/2014 12/02/2016 Peroneal DVT (deep venous thrombosis) 09/05/2013 06/27/2014 ASA CLASS III 05/10/2002 10/30/2018 documented as of this encounter (statuses as of 08/25/2022) [facility] Narrative* Problem Noted Date Resolved Date Partial small bowel obstruction 06/27/2014 12/02/2016 Peroneal DVT (deep venous thrombosis) 09/05/2013 06/27/2014 ASA CLASS III 05/10/2002 10/30/2018 documented as of this encounter (statuses as of 09/08/2022) [facility] Narrative* Problem Noted Date Resolved Date Partial small bowel obstruction 06/27/2014 12/02/2016 Peroneal DVT (deep venous thrombosis) 09/05/2013 06/27/2014 ASA CLASS III 05/10/2002 10/30/2018 documented as of this encounter (statuses as of 09/08/2022) [facility] Narrative* Problem Noted Date Resolved Date Partial small bowel obstruction 06/27/2014 12/02/2016 Peroneal DVT (deep venous thrombosis) 09/05/2013 06/27/2014 ASA CLASS III 05/10/2002 10/30/2018 documented as of this encounter (statuses as of 09/13/2022) [facility] Narrative* Problem Noted Date Resolved Date Partial small bowel obstruction 06/27/2014 12/02/2016 Peroneal DVT (deep venous thrombosis) 09/05/2013 06/27/2014 ASA CLASS III 05/10/2002 10/30/2018 documented as of this encounter (statuses as of 09/19/2022) [facility] Narrative* Problem Noted Date Resolved Date Partial small bowel obstruction 06/27/2014 12/02/2016 Peroneal DVT (deep venous thrombosis) 09/05/2013 06/27/2014 ASA CLASS III 05/10/2002 10/30/2018 documented as of this encounter (statuses as of 11/10/2022) [facility] Narrative* Problem Noted Date Diagnosed Date Resolved Date Partial small bowel obstruction 06/27/2014 12/02/2016 Peroneal DVT (deep venous thrombosis) 09/05/2013 06/27/2014 ASA CLASS III 05/10/2002 10/30/2018 documented as of this encounter (statuses as of 02/28/2023) [facility] Narrative* Problem Noted Date Diagnosed Date Resolved Date Partial small bowel obstruction 06/27/2014 12/02/2016 Peroneal DVT (deep venous thrombosis) 09/05/2013 06/27/2014 ASA CLASS III 05/10/2002 10/30/2018 documented as of this encounter (statuses as of 05/18/2023) [facility] Narrative* Problem Noted Date Diagnosed Date Resolved Date Partial small bowel obstruction 06/27/2014 12/02/2016 Peroneal DVT (deep venous thrombosis) 09/05/2013 06/27/2014 ASA CLASS III 05/10/2002 10/30/2018 documented as of this encounter (statuses as of 05/20/2023) [facility] Narrative* Problem Noted Date Diagnosed Date Resolved Date Partial small bowel obstruction 06/27/2014 12/02/2016 Peroneal DVT (deep venous thrombosis) 09/05/2013 06/27/2014 ASA CLASS III 05/10/2002 10/30/2018 documented as of this encounter (statuses as of 06/02/2023) [facility] Narrative* Problem Noted Date Diagnosed Date Resolved Date Partial small bowel obstruction 06/27/2014 12/02/2016 Peroneal DVT (deep venous thrombosis) 09/05/2013 06/27/2014 ASA CLASS III 05/10/2002 10/30/2018 documented as of this encounter (statuses as of 06/27/2023) [facility] Narrative* Problem Noted Date Diagnosed Date Resolved Date Partial small bowel obstruction 06/27/2014 12/02/2016 Peroneal DVT (deep venous thrombosis) 09/05/2013 06/27/2014 ASA CLASS III 05/10/2002 10/30/2018 documented as of this encounter (statuses as of 06/28/2023) [facility] Narrative* Problem Noted Date Diagnosed Date Resolved Date Partial small bowel obstruction 06/27/2014 12/02/2016 Peroneal DVT (deep venous thrombosis) 09/05/2013 06/27/2014 ASA CLASS III 05/10/2002 10/30/2018 documented as of this encounter (statuses as of 08/28/2023) [facility] Narrative* Problem Noted Date Diagnosed Date Resolved Date Partial small bowel obstruction 06/27/2014 12/02/2016 Peroneal DVT (deep venous thrombosis) 09/05/2013 06/27/2014 ASA CLASS III 05/10/2002 10/30/2018 documented as of this encounter (statuses as of 10/20/2023) [facility] illness Narrative* Problem Noted Date Diagnosed Date Resolved Date Partial small bowel obstruction 06/27/2014 12/02/2016 Peroneal DVT (deep venous thrombosis) 09/05/2013 06/27/2014 ASA CLASS III 05/10/2002 10/30/2018 documented as of this encounter (statuses as of 10/20/2023) [facility] Diagnosis Lung nodules Other nonspecific abnormal finding of lung field documented in this encounter [facility]* Diagnosis Hypothyroidism, acquired- Primary Unspecified hypothyroidism [...] unspecified type (HCC) documented in this encounter [facility]* Diagnosis Hypothyroidism, acquired Unspecified hypothyroidism documented in this encounter [facility]* Diagnosis Sinobronchitis- Primary Unspecified sinusitis (chronic) documented in this encounter [facility]* Diagnosis Cough, unspecified type- Primary SOB (shortness of breath) Shortness of breath COPD with chronic bronchitis (HCC) Obstructive chronic bronchitis without exacerbation documented in this encounter [facility]* Diagnosis SOB (shortness of breath) Shortness of breath COPD with chronic bronchitis (HCC) Obstructive chronic bronchitis without exacerbation documented in this encounter [facility]* Diagnosis SOB (shortness of breath) Shortness of breath COPD with chronic bronchitis (HCC) Obstructive chronic bronchitis without exacerbation documented in this encounter [facility]Evaluw[facility] noteNo assessment information availableWMcKitrick Hospital Work Phone: Evaluation note* Diagnosis 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 Imbalance Abnormality of gait COPD with chronic bronchitis Obstructive chronic bronchitis without exacerbation Hypothyroidism, acquired Unspecified hypothyroidism Cerebral palsy, unspecified type (HCC) Prostate cancer screening Special screening for malignant neoplasm of prostate Dyslipidemia, goal LDL below 100 Other and unspecified hyperlipidemia documented in this encounter [facility] note* Diagnosis Lung nodules Other nonspecific abnormal finding of lung field documented in this encounter [facility] note* Diagnosis Screening for AAA (abdominal aortic aneurysm) Screening for other and unspecified cardiovascular conditions documented in this encounter [facility] note* Diagnosis Hypothyroidism, acquired Unspecified hypothyroidism documented in this encounter [facility] note* Diagnosis Onset Date Resolution Status Dizziness acute Generalized weakness acute Hx of cerebral palsy acute [facility] Work Phone: Evaluation note* Diagnosis Syncope and collapse Vasovagal syncope Syncope and collapse Palpitations documented in this encounter [facility] note* Diagnosis Hypothyroidism, acquired- Primary Unspecified hypothyroidism Balance problem Other symptoms involving nervous and musculoskeletal systems Dizziness Dizziness and giddiness 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) Obstructive chronic bronchitis without exacerbation Cerebral palsy, unspecified type (HCC) documented in this encounter [facility] note* Diagnosis Hypothyroidism, acquired Unspecified hypothyroidism documented in this encounter [facility] note* Diagnosis Suspected COVID-19 virus infection documented in this encounter [facility] for referral (narrative)* Diagnostic Procedure Only (Routine) - Closed Specialty Diagnoses / Procedures Referred By Contac Referred To Contact CT IMAGING Diagnoses Lung nodules Procedures CT CHEST WO IVCON DIAGNOSTIC COMPUTED TOMOGRAPHY THORAX W/O CNTRST Usman Patel MD [address] [place] [address] Ct Imaging Referral ID Status Reason Start Date Expiration Date Visits Re quested Visits Authorized [id number] Closed 11/23/2021 12/23/2021 1 1 [facility] for referral (narrative)* Outpatient Procedure (Routine) - Authorized Specialty Diagnoses / Procedures Referred By Contac t Referred To Contact [facility] Diagnoses SOB (shortness of breath) COPD with chronic bronchitis (HCC) Procedures LUNG VOLUMES Shayna Frias, MECHANICAL SPREADER OPERATOR.MANAGER GIFT [address] [place] [address] [address] Referral ID Status Reason Start Date Expiration Date Visits Requested Visits Authorized [id number] Authorized Auto-Generat ed Referral 09/08/2022 07/16/2023 1 1 * Outpatient Procedure (Routine) - Authorized Specialty Diagnoses / Procedures Referred By Contac t Referred To Contact [facility] Diagnoses SOB (shortness of breath) COPD with chronic bronchitis (HCC) Procedures NITRIC OXIDE, EXHALED NITRIC OXIDE GAS DETERMINATION Shayna Frias APRN.CNP [address] [place] [address] [address] Referral ID Status Reason Start Date Expiration Date Visits Requested Visits Authorized [id number] Authorized Auto-Generat ed Referral 09/08/2022 10/08/2023 1 1 * Outpatient Procedure (Routine) - Authorized Specialty Diagnoses / Procedures Referred By Contac t Referred To Contact [facility] Diagnoses SOB (shortness of breath) COPD with chronic bronchitis (HCC) Procedures SPIROMETRY - BASELINE AND POST DILATOR BRNCDILAT RSPSE SPMTRY PRE&POST-BRNCDILAT ADMN Shayna Frias APRN.MANAGER GIFT [address] [place] [address] [address] Referral ID Status Reason Start Date Expiration Date Visits Requested Visits Authorized [id number] Authorized Auto-Generat ed Referral 09/08/2022 10/08/2023 1 1 [facility] Diagnostic Procedure Only (Routine) - Closed Specialty Diagnoses / Procedures Referred By Contac t Referred To Contact US IMAGING Diagnoses Screening for AAA (abdominal aortic aneurysm) Procedures US SCREENING FOR AAA (2017) US ABDOMINAL AORTA REAL TIME SCREEN STUDY AAA Elderbrock, Usman D, MD [address] [place] [address] [place] [address] Referral ID Status Reason Start Date Expiration Date V isits Requested Visits Authorized [id number] Closed Auto-Generate d Referral 11/14/2022 12/14/2023 1 1 [facility] for referral (narrative)* Outpatient Procedure (Routine) - Authorized Specialty Diagnoses / Procedures Referred By Contac t Referred To Contact [facility] [place] Diagnoses Syncope and collapse Procedures US CAROTID ARTERIES BRIGHT VAS LAB DUPLEX SCAN EXTRACRANIAL ART COMPL BI STUDY Aiden Mccrary MD [address] [place] [address] [facility] [place] [address] [place] [address] Referral ID Status Reason Start Date Expiration Date Visits Requested Visits Authorized [id number] Authorized Auto-Generat ed Referral 08/28/2023 08/27/2024 1 1 * Outpatient Procedure (Routine) - Authorized Specialty Diagnoses / Procedures Referred By Contac t Referred To Contact [facility] [place] Diagnoses Syncope and collapse Palpitations Procedures ECHO ECHO TTHRC R-T 2D W/WOM-MODE COMPL SPEC&COLR D Aiden Mccrary MD [address] [place] [address] [facility] [place] [address] [place] [id number] Referral ID Status Reason Start Date Expiration Date Visits Requested Visits Authorized [id number] Authorized Auto-Generat ed Referral 08/28/2023 10/26/2023 2 1 [facility] for referral (narrative)No reason for referral information availableWMcKit[facility] Work Phone: Advance Directives No Advanced Directives Records FoundDocuments on File Type Date Recorded Patient Technical Training Instructor Expl anation Advance Directive(s) Advance Directive(s) 02/01/2016 9:58 AM Advance Directive(s) 12/25/2015 9:25 AM Documents on File Type Date Recorded Patient Technical Training Instructor Expl anation Advance Directive(s) Advance Directive(s) 02/01/2016 9:58 AM Advance Directive(s) 12/25/2015 9:25 AM Advance Directive Response Recorded Date/ Time Advance Directives No August 02, 2013 10:12pm Living Will No February 24 7:04pm Power of Feed Mill Supervisor No February 24, 023 7:04pm Advance Directive Response Recorded Date/ Time Advance Directives No August 02, 2013 9:12pm Living Will No June 23 8:10pm Power of Feed Mill Supervisor No June 23, 2023 8:10pm Advance Directive Response Recorded Date/ Time Advance Directives No August 02, 2013 10:12pm Chief Complaint and Reason for Visit Chief Complaint RIGHT ANKLE INJURY Chief Complaint DIZZINESS Dizziness (cardiology) Dizziness (cardiology) Dizziness (cardiology) Reason for Visit Dizziness Generalized weakness Hx of cerebral palsy Chief Complaint Admit Date PRISON LAB WORK July 23, 2024 4:50am PRISON LAB WORK August 20, 2024 5:00am LABWORK September 03, 2024 5:00am PRISON LAB WORK September 17, 2024 4: 00am Chief Complaint Admit Date PRISON LAB WORK July 23, 2024 4:50am PRISON LAB WORK August 20, 2024 5:00am LABWORK September 03, 2024 5:00am PRISON LAB WORK September 17, 2024 4: 00am PRISON LAB WORK October 04, 2024 5 :00am Chief Complaint Admit Date PRISON LAB WORK August 20, 2024 5:00am LABWORK September 03, 2024 5:00am PRISON LAB WORK September 17, 2024 4: 00am PRISON LAB WORK October 04, 2024 5 :00am PRISON LAB WORK October 15, 2024 5: 00am LABWORK November 26, 2024 5:00a m Chief Complaint Admit Date LABWORK September 03, 2024 5:00am PRISON LAB WORK September 17, 2024 4: 00am PRISON LAB WORK October 04, 2024 5 :00am PRISON LAB WORK October 15, 2024 5: 00am PRISON LAB WORK November 19, 2024 5:00 am LABWORK November 26, 2024 5:00a m Chief Complaint Admit Date PRISON LAB WORK September 17, 2024 4: 00am PRISON LAB WORK October 04, 2024 5 :00am PRISON LAB WORK October 15, 2024 5: 00am Monthly Exam October 15, 2024 5:11 pm PRISON LAB WORK November 19, 2024 5:00 am LABWORK November 26, 2024 5:00a m Chief Complaint Admit Date PRISON LAB WORK October 04, 2024 5 :00am PRISON LAB WORK October 15, 2024 5: 00am Monthly Exam October 15, 2024 5:11 pm PRISON LAB WORK November 19, 2024 5:00 am LABWORK November 26, 2024 5:00a m PRISON LAB WORK December 17, 2024 5:0 0am MONTHLY EXAM December 24, 2024 3:15 pm PRISON LAB WORK January 14, 2025 5:0 0am Chief Complaint Admit Date PRISON LAB WORK October 15, 2024 5: 00am Monthly Exam October 15, 2024 5:11 pm MONTHLY EXAM November 18, 2024 2:51pm PRISON LAB WORK November 19, 2024 5:00 am LABWORK November 26, 2024 5:00a m PRISON LAB WORK December 17, 2024 5:0 0am MONTHLY EXAM December 24, 2024 3:15 pm PRISON LAB WORK January 07, 2025 5: 00am PRISON LAB WORK January 14, 2025 5:0 0am Chief Complaint Admit Date MONTHLY EXAM November 18, 2024 2:51pm PRISON LAB WORK November 19, 2024 5:00 am LABWORK November 26, 2024 5:00a m PRISON LAB WORK December 17, 2024 5:0 0am MONTHLY EXAM December 24, 2024 3:15 pm PRISON LAB WORK January 07, 2025 5: 00am PRISON LAB WORK January 14, 2025 5:0 0am Monthly Exam February 06, 2025 11:2 1am Chief Complaint Admit Date MONTHLY EXAM November 18, 2024 2:51pm PRISON LAB WORK November 19, 2024 5:00 am LABWORK November 26, 2024 5:00a m PRISON LAB WORK December 17, 2024 5:0 0am MONTHLY EXAM December 24, 2024 3:15 pm PRISON LAB WORK Lisa 24th, 2025 5: 00am PRISON LAB WORK January 14, 2025 5:0 0am Monthly Exam February 06, 2025 11:2 1am PRISON LAB WORK February 18, 2025 5 :00am MONTHLY EXAM February 18, 2025 4:2 3pm Family History No Family History Records Found [...] TOMOGRAPHY THORAX W/O CNTRST Usman Patel MD [address] [place] [address] [place] [address] Referral ID Status Reason Start Date Expiration Date V isits Requested Visits Authorized [id number] Closed Auto-Generate d Referral 11/24/2022 12/24/2022 1 1 Summary Purpose Additional Source Comments Source Comments (unrecognize d section and content) In the event this informatio n is protected by the Federal Confidentiality of Alcohol and Drug Abuse Patient Records regulations: The Federal rules restrict any use of the information to criminally investigate or prosecute any alcohol or drug abuse patient.[facility] the event this information is protected by the Federal Confidentiality of Alcohol and Drug Abuse Patient Records regulations: The Federal rules restrict any use of the information to criminally investigate or prosecute any alcohol or drug abuse patient.[facility] Hospital[facility] the event this information is protected by the Federal Confidentiality of Alcohol and Drug Abuse Patient Records regulations: The Federal rules restrict any use of the information to criminally investigate or prosecute any alcohol or drug abuse patient.[facility]In the event this information is protected by the Federal Confidentiality of Alcohol and Drug Abuse Patient Records regulations: The Federal rules restrict any use of the information to criminally investigate or prosecute any alcohol or drug abuse patient.[facility] HospitalIn the event this information is protected by the Federal Confidentiality of Alcohol and Drug Abuse Patient Records regulations: The Federal rules restrict any use of the information to criminally investigate or prosecute any alcohol or drug abuse patient.[facility] HospitalIn the event this information is protected by the Federal Confidentiality of Alcohol and Drug Abuse Patient Records regulations: The Federal rules restrict any use of the information to criminally investigate or prosecute any alcohol or drug abuse patient.[facility] HospitalIn the event this information is protected by the Federal Confidentiality of Alcohol and Drug Abuse Patient Records regulations: The Federal rules restrict any use of the information to criminally investigate or prosecute any alcohol or drug abuse patient.[facility] HospitalIn the event this information is protected by the Federal Confidentiality of Alcohol and Drug Abuse Patient Records regulations: The Federal rules restrict any use of the information to criminally investigate or prosecute any alcohol or drug abuse patient.[facility] HospitalIn the event this information is protected by the Federal Confidentiality of Alcohol and Drug Abuse Patient Records regulations: The Federal rules restrict any use of the information to criminally investigate or prosecute any alcohol or drug abuse patient.[facility] HospitalIn the event this information is protected by the Federal Confidentiality of Alcohol and Drug Abuse Patient Records regulations: The Federal rules restrict any use of the information to criminally investigate or prosecute any alcohol or drug abuse patient.[facility] HospitalIn the event this information is protected by the Federal Confidentiality of Alcohol and Drug Abuse Patient Records regulations: The Federal rules restrict any use of the information to criminally investigate or prosecute any alcohol or drug abuse patient.[facility] HospitalIn the event this information is protected by the Federal Confidentiality of Alcohol and Drug Abuse Patient Records regulations: The Federal rules restrict any use of the information to criminally investigate or prosecute any alcohol or drug abuse patient.[facility] HospitalIn the event this information is protected by the Federal Confidentiality of Alcohol and Drug Abuse Patient Records regulations: The Federal rules restrict any use of the information to criminally investigate or prosecute any alcohol or drug abuse patient.[facility] HospitalIn the event this information is protected by the Federal Confidentiality of Alcohol and Drug Abuse Patient Records regulations: The Federal rules restrict any use of the information to criminally investigate or prosecute any alcohol or drug abuse patient.[facility] HospitalIn the event this information is protected by the Federal Confidentiality of Alcohol and Drug Abuse Patient Records regulations: The Federal rules restrict any use of the information to criminally investigate or prosecute any alcohol or drug abuse patient.[facility] HospitalIn the event this information is protected by the Federal Confidentiality of Alcohol and Drug Abuse Patient Records regulations: The Federal rules restrict any use of the information to criminally investigate or prosecute any alcohol or drug abuse patient.[facility] HospitalIn the event this information is protected by the Federal Confidentiality of Alcohol and Drug Abuse Patient Records regulations: The Federal rules restrict any use of the information to criminally investigate or prosecute any alcohol or drug abuse patient.[facility] HospitalIn the event this information is protected by the Federal Confidentiality of Alcohol and Drug Abuse Patient Records regulations: The Federal rules restrict any use of the information to criminally investigate or prosecute any alcohol or drug abuse patient.[facility] HospitalIn the event this information is protected by the Federal Confidentiality of Alcohol and Drug Abuse Patient Records regulations: The Federal rules restrict any use of the information to criminally investigate or prosecute any alcohol or drug abuse patient.[facility] HospitalIn the event this information is protected by the Federal Confidentiality of Alcohol and Drug Abuse Patient Records regulations: The Federal rules restrict any use of the information to criminally investigate or prosecute any alcohol or drug abuse patient.[facility] HospitalIn the event this information is protected by the Federal Confidentiality of Alcohol and Drug Abuse Patient Records regulations: The Federal rules restrict any use of the information to criminally investigate or prosecute any alcohol or drug abuse patient.[facility] HospitalIn the event this information is protected by the Federal Confidentiality of Alcohol and Drug Abuse Patient Records regulations: The Federal rules restrict any use of the information to criminally investigate or prosecute any alcohol or drug abuse patient.[facility] HospitalIn the event this information is protected by the Federal Confidentiality of Alcohol and Drug Abuse Patient Records regulations: The Federal rules restrict any use of the information to criminally investigate or prosecute any alcohol or drug abuse patient.[facility] HospitalIn the event this information is protected by the Federal Confidentiality of Alcohol and Drug Abuse Patient Records regulations: The Federal rules restrict any use of the information to criminally investigate or prosecute any alcohol or drug abuse patient.[facility] HospitalIn the event this information is protected by the Federal Confidentiality of Alcohol and Drug Abuse Patient Records regulations: The Federal rules restrict any use of the information to criminally investigate or prosecute any alcohol or drug abuse patient.[facility] HospitalIn the event this information is protected by the Federal Confidentiality of Alcohol and Drug Abuse Patient Records regulations: The Federal rules restrict any use of the information to criminally investigate or prosecute any alcohol or drug abuse patient.[facility] HospitalIn the event this information is protected by the Federal Confidentiality of Alcohol and Drug Abuse Patient Records regulations: The Federal rules restrict any use of the information to criminally investigate or prosecute any alcohol or drug abuse patient.[facility] HospitalIn the event this information is protected by the Federal Confidentiality of Alcohol and Drug Abuse Patient Records regulations: The Federal rules restrict any use of the information to criminally investigate or prosecute any alcohol or drug abuse patient.[facility] HospitalIn the event this information is protected by the Federal Confidentiality of Alcohol and Drug Abuse Patient Records regulations: The Federal rules restrict any use of the information to criminally investigate or prosecute any alcohol or drug abuse patient.[facility] HospitalIn the event this information is protected by the Federal Confidentiality of Alcohol and Drug Abuse Patient Records regulations: The Federal rules restrict any use of the information to criminally investigate or prosecute any alcohol or drug abuse patient.[facility] HospitalIn the event this information is protected by the Federal Confidentiality of Alcohol and Drug Abuse Patient Records regulations: The Federal rules restrict any use of the information to criminally investigate or prosecute any alcohol or drug abuse patient.[facility] Reason for Visit (unrecogniz ed section and content) Reason Comments Results Reason Comments Radiology CT Specialty Diagnoses / Procedures Referred By Dov t Referred To Contact CT IMAGING Diagnoses Lung nodules Procedures CT CHEST WO IVCON DIAGNOSTIC COMPUTED TOMOGRAPHY THORAX W/O Usman Crandall MD [address] [place] [address] Ct Imaging Referral ID Status Reason Start Date Expiration Date Visits Re quested Visits Authorized [id number] Closed 11/23/2021 12/23/2021 1 1 Reason Onset Date Comments [facility] Monitoring 12/08/2021 Enrollme nt Outreach Reason Onset Date Comments 6 Month Exam Immunizations 05/17/2022 Flu vaccination Reason Comments Forms [facility] Reason Comments Acute Visit upper repiratory Reason Comments Results COVID/flu. Reason Comments Appointment Reason Comments Acute Visit headcold/fatique Reason Comments Spirometry Specialty Diagnoses / Procedures Referred By Contac t Referred To Contact [facility] Diagnoses SOB (shortness of breath) COPD with chronic bronchitis (HCC) Procedures SPIROMETRY - BASELINE AND POST DILATOR BRNCDILAT RSPSE SPMTRY PRE&POST-BRNCDILAT ADMN Shayna Frias APRN.MANAGER GIFT [address] [place] [address] Res[facility] [place] [address] [place] [address] Referral ID Status Reason Start Date Expiration Date V isits Requested Visits Authorized [id number] Closed Auto-Generate d Referral 09/08/2022 10/08/2023 1 1 Specialty Diagnoses / Procedures Referred By Contac t Referred To Contact [facility] Diagnoses SOB (shortness of breath) COPD with chronic bronchitis (HCC) Procedures NITRIC OXIDE, EXHALED NITRIC OXIDE GAS DETERMINATION Shayna Frias, COLIN.MANAGER GIFT [address] [place] [address] [address] Referral ID Status Reason Start Date Expiration Date V isits Requested Visits Authorized [id number] Closed Auto-Generate d Referral 09/08/2022 10/08/2023 1 1 Specialty Diagnoses / Procedures Referred By Contac t Referred To Contact [facility] Diagnoses SOB (shortness of breath) COPD with chronic bronchitis (HCC) Procedures LUNG VOLUMES Shayna Frias, COLIN.MANAGER GIFT [address] [place] [address] [facility] [place] [address] [place] [id number] Referral ID Status Reason Start Date Expiration Date V isits Requested Visits Authorized [id number] Closed Auto-Generate d Referral 09/08/2022 07/16/2023 1 1 Reason Comments Results PFT's Reason Onset Date Comments Results 06/10/2022 Reason Comments Patient Update Fall Reason Onset Date Comments 6 Month Exam Immunizations 05/17/2023 Flu vaccination Specialty Diagnoses / Procedures Referred By Contac t Referred To Contact CT IMAGING Diagnoses Lung nodules Procedures CT CHEST WO IVCON DIAGNOSTIC COMPUTED TOMOGRAPHY THORAX W/O JAYSONRST Usman Patel MD [address] [place] [address] [place] [address] Referral ID Status Reason Start Date Expiration Date V isits Requested Visits Authorized [id number] Closed Auto-Generate d Referral 11/24/2022 12/24/2022 1 1 Reason Comments Radiology US Specialty Diagnoses / Procedures Referred By Contac t Referred To Contact US IMAGING Diagnoses Screening for AAA (abdominal aortic aneurysm) Procedures US SCREENING FOR AAA (2017) US ABDOMINAL AORTA REAL TIME SCREEN STUDY AAA Usman Patel MD [address] [place] [address] [place] [address] Referral ID Status Reason Start Date Expiration Date V isits Requested Visits Authorized [id number] Closed Auto-Generate d Referral 11/14/2022 12/14/2023 1 1 Reason Onset Date Comments Refill Request 06/01/2023 Reason Comments Patient Update Reason Onset Date Comments Transition Of Care 06/27/2023 Reason Comments Consult Specialty Diagnoses / Procedures Referred By Contac t Referred To Contact Cardiology Diagnoses Syncope and collapse Procedures CONSULT TO CARDIOLOGY OFFICE/OUTPATIENT [facility] 60 MINUTES Temitope Lara PA-C [address] [place] [address] Referral ID Status Reason Start Date Expiration Date V isits Requested Visits Authorized [id number] Closed PCP Requested Referral 07/19/2023 07/18/2024 1 1 Reason Comments Forms Orders from [facility] - 90 day Reason Comments F/U 3 Month Reason Comments Forms [facility] 90 d ay order Reason Onset Date Comments Refill Request 03/04/2024 Reason Comments Med Change Request Reason Comments Forms [facility] Reason Comments Forms 90 day order for [facility] Care Teams (unrecognized sec tion and content) Custody Officer Relationship Specialty Start Date End Date Usman Patel MD [address] [place], [place] [id number] PCP - General Family Practice 05/10/21 Custody Officer Relationship Specialty Start Date End Date Usman Patel MD [address] [place], [place] [id number] PCP - General Family Practice 05/10/21 Custody Officer Relationship Specialty Start Date End Date Usman Patel MD [address] [facility] [address] PCP - General Family Practice 05/10/21 Custody Officer Relationship Specialty Start Date End Date Usman Patel MD [address] [facility] [address] PCP - General Family Medicine 05/10/21 Custody Officer Relationship Specialty Start Date End Date Usman Patel MD [address] [facility] [address] PCP - General Family Medicine 05/10/21 Custody Officer Relationship Specialty Start Date End Date Usman Patel MD [address] [facility] [address] PCP - General Family Medicine 05/10/21 Custody Officer Relationship Specialty Start Date End Date Usman Patel MD [address] [facility] [address] PCP - General Family Medicine 05/10/21 Custody Officer Relationship Specialty Start Date End Date Usman Patel MD [address] [facility] [address] PCP - General Family Medicine 05/10/21 Custody Officer Relationship Specialty Start Date End Date Usman Patel MD [address] [facility] [place] [address] PCP - General Family Medicine 05/10/21 Custody Officer Relationship Specialty Start Date End Date Usman Patel MD [address] [facility] [place] [address] PCP - General Family Medicine 05/10/21 Custody Officer Relationship Specialty Start Date End Date Usman Patel MD [address] [facility] [place] [address] PCP - General Family Medicine 05/10/21 Custody Officer Relationship Specialty Start Date End Date Usman Patel MD [address] [place] [address] PCP - General Family Medicine 05/10/21 Team Status: Active Member Role Status Dates Dr. Nakul Lopez III, MD Family Provider Active Dr. Usman Patel MD Primary Care Provider Active Team Status: Inactive Member Role Status Dates Dr. Prince Zimmer , DO Emergency Provider Active Dr. Usman Patel MD Primary Care Provider Active Custody Officer Relationship Specialty Start Date End Date Usman Patel MD [address] [place] [address] PCP - General Family Medicine 05/10/21 Custody Officer Relationship Specialty Start Date End Date Usman Patel MD [address] [place] [address] PCP - General Family Medicine 05/10/21 Custody Officer Relationship Specialty Start Date End Date Usman Patel MD [address] [place] [address] PCP - General Family Medicine 05/10/21 Custody Officer Relationship Specialty Start Date End Date Usman Patel MD [address] [place] [address] PCP - General Family Medicine 05/10/21 Team Status: Active Member Role Status Dates Dr. Usman Patel MD Primary Care Provider Active Dr. Ethan Martinez , Emergency Provider Active Dr. Raoul Oliver MD [...] Dr. Kike Malave MD Attending Provider Active Custody Officer Relationship Specialty Start Date End Date Usman Patel MD [address] [facility] [place] [address] PCP - General Family Medicine 05/10/21 Custody Officer Relationship Specialty Start Date End Date Usman Patel MD [address] [place] [address] PCP - General Family Medicine 05/10/21 Custody Officer Relationship Specialty Start Date End Date Usman Patel MD [address] [facility] [place] [address] PCP - General Family Medicine 05/10/21 Custody Officer Relationship Specialty Start Date End Date Usman Patel MD [address] [facility] [place] [address] PCP - General Family Medicine 05/10/21 Custody Officer Relationship Specialty Start Date End Date Usman Patel MD [address] [facility] [place] [address] PCP - General Family Medicine 05/10/21 Custody Officer Relationship Specialty Start Date End Date Usman Patel MD [address] [facility] [place] [address] PCP - General Family Medicine 05/10/21 Custody Officer Relationship Specialty Start Date End Date Usman Patel MD [address] [place] [address] PCP - General Family Medicine 05/10/21 Custody Officer Relationship Specialty Start Date End Date Usman Patel MD [address] [place] [address] PCP - General Family Medicine 05/10/21 Shayna Frias APRN.CNP [address] [place] [address] Beverage Server Family Medicine 06/23/24 Team Status: Active Member [...] Care Provider Active Start: October 15, 2024 BETHANIE Casanova Attending Provider Active Start: October 15, 2024 [...] 2024 End: October 15, 2024 Jolly MÉNDEZ OFFICE ELECTRICIAN-C Attending Provider Active Start: October 15, 2024 End: October 15, 2024 Team Status: Active Member Role Status Dates Dr. Usman Patel MD Primary Care Provider Active Start: November 19, 2024 Jolly MÉNDEZ OFFICE ELECTRICIAN-C Attending Provider Active Start: November 19, 2024 [...] November 19, 2024 End: November 19, 2024 Jolly MÉNDEZ OFFICE ELECTRICIAN-C Attending Provider Active Start: November 19, 2024 End: November 19, 2024 Team Status: Active Member Role Status Dates Dr. Usman Patel MD Primary Care Provider Active Start: December 17, 2024 Jolly MÉNDEZ OFFICE ELECTRICIAN-C Attending Provider Active Start: December 17, 2024 Team Status: Inactive Member Role Status Dates Dr. Usman Patel MD Primary Care Provider Active Start: October 15, 2024 End: October 15, 2024 Dr. Micaela Holder MD Attending Provider Active Start: October 15, 2024 End: October 15, 2024 Team Status: Active Member Role/Relationship Status Dates Dr. Nakul Lopez III, MD Family Provider Active Dr. Usman Patel MD Primary Care Provider Active Team Status: Inactive Member Role/Relationship Status Dates Dr. Usman Patel MD Primary Care Provider Active Start: October 04, 2024 End: October 04, 2024 Micaela MÉNDEZ MD Attending Provider Active Start: October 04, 2024 End: October 04, 2024 Team Status: Inactive Member Role/Relationship Status Dates Dr. Usman Patel MD Primary Care Provider Active Start: October 15, 2024 End: October 15, 2024 NINA CasanovaC Attending Provider Active Start: October 15, 2024 End: October 15, 2024 Team Status: Inactive Member Role/Relationship Status Dates Dr. Usman Patel MD Primary Care Provider Active Start: October 15, 2024 End: October 15, 2024 Dr. Micaela Holder MD Attending Provider Active Start: October 15, 2024 End: October 15, 2024 Team Status: Inactive Member Role/Relationship Status Dates Dr. Usman Patel MD Primary Care Provider Active Start: November 19, 2024 End: November 19, 2024 NINA CasanovaC Attending Provider Active Start: November 19, 2024 End: November 19, 2024 Team Status: Inactive Member Role/Relationship Status Dates Dr. Usman Patel MD Primary Care Provider Active Start: November 26, 2024 End: November 26, 2024 Micaela MÉNDEZ MD Attending Provider Active Start: November 26, 2024 End: November 26, 2024 Team Status: Active Member Role/Relationship Status Dates Dr. Usman Patel MD Primary Care Provider Active Start: December 17, 2024 Jolly MÉNDEZ NP-C Attending Provider Active Start: December 17, 2024 Team Status: Inactive Member Role/Relationship Status Dates Dr. Usman Patel MD Primary Care Provider Active Start: December 24, 2024 End: December 24, 2024 Dr. Micaela Holder MD Attending Provider Active Start: December 24, 2024 End: December 24, 2024 Team Status: Active Member Role/Relationship Status Dates Dr. Usman Patel MD Primary Care Provider Active Start: January 07, 2025 Micaela MÉNDEZ MD Attending Provider Active Start: January 07, 2025 Team Status: Active Member Role/Relationship Status Dates Dr. Usman Patel MD Primary Care Provider Active Start: January 14, 2025 NINA CasanovaC Attending Provider Active Start: January 14, 2025 Team Status: Inactive Member Role/Relationship Status Dates Dr. Usman Patel MD Primary Care Provider Active Start: October 15, 2024 End: October 15, 2024 Jolly MÉNDEZ OFFICE ELECTRICIAN-C Attending Provider Active Start: October 15, 2024 End: October 15, 2024 Team Status: Inactive Member Role/Relationship Status Dates Dr. Usman Patel MD Primary Care Provider Active Start: October 15, 2024 End: October 15, 2024 Dr. Micaela Holder MD Attending Provider Active Start: October 15, 2024 End: October 15, 2024 Team Status: Inactive Member Role/Relationship Status Dates Dr. Usman Patel MD Primary Care Provider Active Start: November 18, 2024 End: November 18, 2024 Jolly Macdonald NP, OFFICE ELECTRICIAN-C Attending Provider Active Start: November 18, 2024 End: November 18, 2024 Team Status: Inactive Member Role/Relationship Status Dates Dr. Usman Patel MD Primary Care Provider Active Start: November 18, 2024 End: November 18, 2024 Jolly Macdonald NP, OFFICE ELECTRICIAN-C Attending Provider Active Start: November 18, 2024 End: November 18, 2024 Team Status: Inactive Member Role/Relationship Status Dates Dr. Usman Patel MD Primary Care Provider Active Start: November 19, 2024 End: November 19, 2024 Jolly MÉNDEZ OFFICE ELECTRICIAN-C Attending Provider Active Start: November 19, 2024 End: November 19, 2024 Team Status: Inactive Member Role/Relationship Status Dates Dr. Usman Patel MD Primary Care Provider Active Start: November 26, 2024 End: November 26, 2024 Micaela MÉNDEZ MD Attending Provider Active Start: November 26, 2024 End: November 26, 2024 Team Status: Active Member Role/Relationship Status Dates Dr. Usman Patel MD Primary Care Provider Active Start: December 17, 2024 Jolly MÉNDEZ OFFICE ELECTRICIAN-C Attending Provider Active Start: December 17, 2024 Team Status: Inactive Member Role/Relationship Status Dates Dr. Usman Patel MD Primary Care Provider Active Start: December 24, 2024 End: December 24, 2024 Dr. Micaela Holder MD Attending Provider Active Start: December 24, 2024 End: December 24, 2024 Team Status: Active Member Role/Relationship Status Dates Dr. Usman Patel MD Primary Care Provider Active Start: January 07, 2025 Micaela MÉNDEZ MD Attending Provider Active Start: January 07, 2025 Team Status: Active Member Role/Relationship Status Dates Dr. Usman Patel MD Primary Care Provider Active Start: January 14, 2025 BETHANIE Casanova Attending Provider Active Start: January 14, 2025 Team Status: Inactive Member Role/Relationship Status Dates Dr. Usman Patel MD Primary Care Provider Active Start: February 06, 2025 End: February 06, 2025 Poornima LOTT PA Attending Provider Active St art: February 06, 2025 End: February 06, 2025 Team Status: Active Member Role/Relationship Status Dates Dr. Usman Patel MD Primary Care Provider Active Start: February 18, 2025 Micaela MÉNDEZ MD Attending Provider Active Start: February 18, 2025 Team Status: Inactive Member Role/Relationship Status Dates Dr. Usman Patel MD Primary Care Provider Active Start: February 18, 2025 End: February 18, 2025 Dr. Micaela Holder MD Attending Provider Active Start: February 18, 2025 End: February 18, 2025 Team Status: Active Member Role/Relationship Status Dates Dr. Usman Patel MD Primary Care Provider Active Start: March 18, 2025 BETHANIE Casanova Attending Provider Active Start: March 18, 2025 Goals (unrecognized section and content) Goals may [...] section and content) DATE CREATED AUTHOR 10/06/2023 [facility] DATE CREATED AUTHOR AUTHOR'S DANY ATION 07/05/2024 [facility] DATE CREATED AUTHOR AUTHOR'S ORGANIZ ATION 03/18/2025 [facility] FOR RECORDS PERTAINING TO PATIENTS WHO ARE [...] BE BASED ON THE PRIMARY CLINICAL RECORDS. [facility] [employer] [facility]. provides no warranty or guarantee of the accuracy or completeness of information in this document.
== END ==
LOC: OLS.WHLEAS 05:00
PROVIDERS: PCP Family Medicine; Visit Provider Nurse Practitioner Adult Health
DX: E03.9 Hypothyroidism, unspecified (principal); G80.9 Cerebral palsy, unspecified; M62.562 Muscle wasting and atrophy, not elsewhere classified, left lower leg
CPT/HCPCS: 36415; 84443

== ENCOUNTER → 2025-04-22 06:40 | Outpatient (REF) | payer MEDICARE, MEDICAID, SELFPAY ==
[2025-04-22 10:41] LABS: AST(SGOT) 18 U/L (<=37); Alanine Aminotransfer ALT/SGPT 12 U/L (<=46); Albumin, Serum 3.7 g/dL (3.4-4.8); Alkaline Phosphatase 106 U/L (40-129); Bilirubin, Direct 0.09 mg/dL (0.00-0.30); Globulin 3.0 g/dL (2.2-4.2); Vitamin B12 383 pg/mL (180-914)
== END ==
LOC: OLS.WHLEAS 06:40
PROVIDERS: PCP Family Medicine; Visit Provider Nurse Practitioner Adult Health
DX: G80.9 Cerebral palsy, unspecified (principal); R54 Age-related physical debility; M62.561 Muscle wasting and atrophy, not elsewhere classified, right lower leg; M62.562 Muscle wasting and atrophy, not elsewhere classified, left lower leg; R48.8 Other symbolic dysfunctions
CPT/HCPCS: 36415; 80076; 82607

== ENCOUNTER → 2025-05-13 04:00 | Outpatient (REF) | payer MEDICARE, MEDICAID, SELFPAY | LOC: OLS.WHLEAS 04:00 | PROVIDERS: PCP Family Medicine; Referring Provider Internal Medicine; Visit Provider Internal Medicine | DX: G80.9 Cerebral palsy, unspecified (principal); R54 Age-related physical debility; M62.562 Muscle wasting and atrophy, not elsewhere classified, left lower leg; M62.561 Muscle wasting and atrophy, not elsewhere classified, right lower leg | CPT/HCPCS: 36415; 84443 ==

== ENCOUNTER → 2025-05-20 | Outpatient (REF) | payer MEDICARE, MEDICAID, SELFPAY ==
--- OUTSIDE RECORDS SUMMARY | 2025-05-20 04:20 | XMS RPT_ITS | CCD ---
Author Organization [facility] Care Team Providers Care Genetic Technologist Name Role Phone Usman Patel MD Primary [...] TRIPATHI, Dr. Wilks Primary Care Provider [phone] Gallo TRIPATHI, Micaela Attending Provider Sara Holder MD, Micaela Referring Provider Unavailoscar Macdonald DOCKWORKER-C, Jolly Attending Provider [phone] Jorge TRIPATHI, Dr. Wilks Primary Care Provider Gallo TRIPATHI, Micaela Attending Provider Unavailoscar Holder MD, Micaela Referring Provider Sara Patel MD, Dr. Wilks Primary Care Provider [phone] Glalo TRIPATHI, Micaela Attending Provider Sara Patel MD, Dr. Wilks Primary Care Provider Gallo TRIPATHI, Micaela Attending Provider Sara Holder MD, Dr. Hinojosa Attending Provider [phone] Jorge TRIPATHI, Dr. Wilks Primary Care Provider Gallo TRIPATHI, Micaela Attending Provider Unavailoscar Patel MD, Dr. Wilks Primary Care Provider [phone] Renae DOCKWORKER-C, Jolly Attending Provider Gallo TRIPATHI, Micaela Attending Provider Sara Patel MD, Dr. Wilks Primary Care Provider [phone] Renae DOCKWORKER-C, Jolly Attending Provider [phone] Gallo TRIPATHI, Dr. Hinojosa Attending Provider [phone] Poornima Holden Attending Provider Dr. Usman Patel MD Primary Care Physician Gallo TRIPATHI, Dr. Hinojosa Attending Physician [phone] Micaela Holder MD Attending Physician Unavail able Renae DOCKWORKER-C, Jolly Attending Physician Poornima Holden Attending Physician Jorge TRIAPTHI, Dr. Wilks Primary Care Physician Micaela Holder MD Attending Physician Unavail maricarmen Holder MD, Dr. Hinojosa Attending Physician Renae DOCKWORKER-CJolly Attending Physician Usman Patel Primary Care Unavailable Renae OLSJolly Attending Unavailable [place], Usman Primary Care Unavailable Renae DOCKWORKERJolly Attending Unavailable [place], Usman Primary Care Unavailable Poornima Holden Attending Unavailable [place], Usman Primary Care Unavailable Oleghe OLS, Efewongbe Attending Unavailabl e [place], Usman Primary Care Unavailable [place] OLSJolly Attending Unavailable [place], Usman Primary Care Unavailable Oleghe OLS, Efewongbe Attending Unavailabl e [place], Usman Primary Care Unavailable [place] OLS, Jolly Attending Unavailable [place], Usman Primary Care Unavailable Oleghe OLS, Efewongbe Attending Unavailabl e [place], Usman Primary Care Unavailable Oleghe, Efewongbe Attending Unavailable [place], Usman Primary Care Unavailable Jolly Bueno Attending Unavailable [place], Usman Primary Care Unavailable Renae MÉNDEZ, Jolly Attending Unavailable [place], Usman Primary Care Unavailable [place] OLS, Jolly Attending Unavailable [place], Usman Primary Care Unavailable Oleghe, Efewongbe Attending Unavailable [place], Usman Primary Care Unavailable Oleghe, Efewongbe Attending Unavailable [place], Usman Primary Care Unavailable Renae DOCKWORKERJolly Attending Unavailable [place], Usman Primary Care Unavailable [...] Care Unavailable [place]ickton OLS, Jolly Attending Unavailable Allergies Allergy Classification Reported Allergen(s) Allergy Type Date of Onset Reaction(s) Facility (20 sources) Seasonal allergy; Translations: [SEASONAL ALLERGIES] Allergy to substance 2 Other: See Comments [facility] Medications Current Medications Medication Drug Class(es) Dates Sig (Normalized) Sig (Original) [id number] 200 actuat albuterol 0.09 mg/actuat metered dose inhaler (20 sources) beta2-Adrenergic Agonist Start: 08-24-2022 End: 09-18-2022 take 2 puff(s) by inhalation every four hours as needed for wheezing albuterol HFA (VENTOLIN HFA) 90 mcg/actuation inhaler Indications: SOB (shortness of breath) Inhale 2 Puffs as instructed every 4 hours as needed for wheezing/shortnes s of breath for up to 10 days. 1 Each 3 09/08/2022 Active Start: 03-23-2018 End: 11-08-2021 take 2 puff(s) by inhalation every four hours as needed albuterol HFA (PROVENTIL HFA, VENTOLIN HFA) 90 mcg/actuation inhaler Indications: COPD with chronic bronchitis (HCC) 2 PUFFS EVERY 4 HOURS NEEDED 3 Inhaler 3 03/23/2018 11/08/2021 Discontinued Start: 09-01-2017 End: 03-28-2024 Start: 09-01-2017 take 1 puff(s) by in [...] tablet by cj th three times daily Start: 08-23-2013 End: 09-01-2013 take 300 mg [...] evening docusate sodium 50 mg / sennosides, retirement 8.6 mg oral tablet (11 sources) Start: 4 doxycycline hyclate 100 mg oral tablet (15 sources) Tetracycline-clas s Drug Start: 3 End: 3 take 1 tablet by mouth twice daily doxycycline (VIBRA-TABS) 100 mg tablet Indications: Sinobronchitis Take 1 tablet by mouth twice daily for 10 days. 20 tablet 0 08/24/2022 09/03/2022 Active Start: 10-19-2018 End: 06-23-2023 take 1 capsule by mouth twice daily Doxycycline Monohydrate 100 MG capsule Discontinued 100 mg PO TWICE A DAY 20 October 19, 2018 12:00am June 23, 2023 9:20pm Comment on above: Take 1 tablet by cj th twice daily for 10 days. ergocalciferol 1.25 mg oral capsule (11 sources) Provitamin D2 Compound Start: 04-05-20 24 fluticasone / salmeterol (20 sources) Corticosteroid, beta2-Adrenergic Agonist Start: 03-04-20 24 take 1 puff(s) by inhalation twice daily fluticasone-salmet shanta (ADVAIR DISKUS) 500-50 mcg/dose dsdv Inhale 1 Puff as instructed two times a day. 3 Each 3 03/04/2024 Active Start: 06-23-2023 Start: 06-23-2023 Fluticasone Pr opion-Salmeterol 500-50 mcg/dose [...] 500 mg oral tablet (20 sources) Start: 08-29-2017 End: 03-05-2024 take 1 tablet by mouth twice daily Comment on above: Take 1 tablet by cj th twice daily. Take 1 tablet by cj th two times a day. vitamin b12 1 mg oral tablet (11 sources) Vitamin B12 Start: 04-05-2024 take 1 tablet by mouth at breakfast Completed/Discontinued Medications Medication Drug Class(es) Dates Sig (Normalized) Sig (Original) acetaminophen 650 mg rectal suppository (13 sources) Start: 08-02-2013 End: 09-01-2013 take 650 mg rectal route every eight hours as needed for fever Acetaminophen 650 MG Suppos. Discontinued 650 mg RECTAL Q8H as needed for Fever 14 0 August 02, 2013 1:00am September 01, 2013 11:49am acetaminophen 325 mg / oxyCODONE hydrochloride 5 mg oral tablet (13 sources) Opioid Agonist Start: 08-02-2013 End: 08-23-2013 [...] 2017 1:00am March 28, 2024 12:48pm Budesonide-Formoterol (13 sources) Corticosteroid, beta2-Adrenergic Agonist Start: 09-01-2017 End: [...] bromide 0.042 mg/actuat metered dose nasal spray (14 sources) Anticholinergic Start: 09-01-2017 End: 11-08-2021 take 2 spray(s) nasal route three times daily ipratropium bromide (ATROVENT) 42 mcg (0.06 %) nasal spray use 2 (TWO) sprays in each nostril THREE TIMES DAILY. 0 09/01/2017 11/08/2021 Discontinued Start: 09-01-2017 End: 06-23-2023 Ipratropium Bryant 1 SPRAY spray,non-aerosol Discontinued 2 NMA NASAL THREE TIMES A DAY 1 0 September 01, 2017 1:00am June 23, 2023 9:21pm Start: 09-01-2017 End: 06-23-2023 Ipratropium Bryant Disconti nued 2 SPRAY NASAL THREE TIMES [...] Comment on above: Take 1 tablet by [facility] once daily. Take on empty stomach. For Thyroid meclizine hydrochloride 25 mg oral tablet (12 sources) Antiemetic Start: 06-25-20 End: 03-28-20 24 take 1 tablet by mouth three times daily as needed for dizziness Meclizine 25 mg Tablet Discontinued 25 mg PO 3 TIMES DAILY NEEDED as needed for Dizziness 30 June 25, 2023 1:00am March 28, 2024 12:47pm moxifloxacin 400 mg oral tablet (13 sources) Quinolone Antimicrobial Start: 08-02-19 14 End: 08-23-19 14 take 1 tablet by mouth once daily Moxifloxacin Hcl (Avelox) 400 MG tablet Discontinued 400 mg PO DAILY 3 August 02, 2013 1:00am August 23, 2013 7:04pm pantoprazole 20 mg delayed release oral tablet (13 sources) Proton Pump Inhibitor Start: 08-02-19 14 End: 08-23-19 14 take 1 tablet by mouth once daily Pantoprazole 20 MG tablet Discontinued 20 mg PO DAILY 30 August 02, 2013 1:00am August 23, 2013 7:04pm predniSONE 20 mg oral tablet (20 sources) Start: 10-20-19 19 End: 06-23-20 23 take 3 tablets by mouth once daily [...] STOP promethazine hydrochloride 25 mg oral tablet (13 sources) Phenothiazine Start: 08-02-2013 End: 09-01-2013 take [...] te Episodic/Chronic Acute and unspecified renal failure (13 sources) Acute renal failure syndrome; Translations: [Acute [...] 10-02-2006 09-22-2016 Chronic Fracture of lower limb (13 sources) Closed fracture of fifth metatarsal bone; Translations: [Nondisplaced fracture of fifth metatarsal bone, right foot, initial encounter for closed fracture] 02-24-2023 Episodic Immunizations and screening for infectious disease (3 sources) Needs influenza immunization; Translations: [Encounter for immunization] Episodic Malaise and fatigue (13 sources) Asthenia; Translations: [Weakness] 06-23-2023 Episodic Noninfectious gastroenteritis (13 sources) Gastroenteritis; Translations: [Noninfective gastroenteritis and colitis, unspecified] 08-30-2017 Episodic Other circulatory disease (6 sources) Suspected respiratory disease; Translations: [Other specified symptoms and signs involving the circulatory and respiratory systems] 09-28-2017 Episodic Other connective tissue disease (2 sources) Muscle wasting and atrophy, not elsewhere classified, left lower leg; Translations: [Muscle wasting and atrophy, not elsewhere classified, left lower leg] Onset: 01-01-2025 Episodic Other connective tissue disease (2 sources) Muscle wasting and atrophy, not elsewhere classified, right lower leg; Translations: [Muscle wasting and atrophy, not elsewhere classified, right lower leg] Onset: 01-01-2025 Episodic Other lower respiratory disease (2 sources) Multiple nodules of lung; Translations: [Other nonspecific abnormal finding of lung field] Episodic Other lower respiratory disease (1 source) Cough; Translations: [Cough, unspecified type] Episodic Other lower respiratory disease (4 sources) Dyspnea; Translations: [Shortness of breath] Episodic Other lower respiratory disease (13 sources) Hypoxia; Translations: [Hypoxemia] 09-29-2017 Episodic Other nervous system disorders (1 source) Polyneuropathy, unspecified; Translations: [Neuropathy] Onset: 07-19-2023 Chronic Other nervous system disorders (20 sources) H/O: brain disorder; Translations: [Personal history of other diseases of the nervous system and sense organs] Onset: 03-15-2018 03-15-2018 Episodic Other nervous system disorders (13 sources) H/O: epilepsy; Translations: [Personal history of [...] symbolic dysfunctions; Translations: [Other symbolic dysfunctions] Onset: 04-18-2025 Episodic Other nutritional; endocrine; and metabolic disorders (20 sources) Obese class II; Translations: [Obesity, unspecified] Onset: 03-15-2018 03-15-2018 Chronic Other screening for suspected conditions (not mental disorders or infectious disease) (3 sources) Raised prostate specific antigen; Translations: [Elevated prostate specific antigen [PSA]] Episodic Other upper respiratory infections (1 source) Chronic sinusitis; Translations: [Chronic sinusitis, unspecified] Chronic Other upper respiratory infections (13 sources) Posterior rhinorrhea; Translations: [Postnasal drip] 09-28-2017 Episodic Paralysis (20 sources) Right hemiparesis; Translations: [Spastic hemiplegia affecting right dominant side] Onset: 06-27-2014 06-27-2014 Chronic Phlebitis; thrombophlebitis and thromboembolism (19 sources) Deep venous thrombosis of lower extremity; [...] cause] Onset: 06-27-2014 Resolved: 12-02-2016 12-02-2016 Episodic Other and unspecified benign neoplasm (20 [...] Test Name Value Interpretation Reference Range Facility TSH DL <= 0.005 mIU/L QnOrde red By: Micaela Holder on 05-13-2025 TSH Qn 2.140 uIU/mL 0.300-4.200 [facility] Bilirubin directOrdered By: Jolly Macdonald on 04-22-2025 Bilirubin.direct [Mass/Vol] 0.09 mg/dL 0.00-0.30 [facility] Bilirubin, totalOrdered By: Jolly Macdonald on 04-22-2025 Bilirubin [Mass/Vol] 0.24 mg/dL 0.00-1.30 [facility] Laboratory - Chemistry and C hemistry - challengeOrdered By: Jolly Macdonald on 04-22-2025 AST [Catalytic activity/Vol] 18 U/L <38 [facility] Serum globulin measurementOr dered By: Jolly Macdonald on 04-22-2025 Globulin (S) [Mass/Vol] 3.0 g/dL 2.2-4.2 [facility] Serum or plasma alanine ty otransferase (ALT) measurementOrdered By: Jolly Macdonald on 04-22-2025 ALT [Catalytic activity/Vol] 12 U/L <47 [facility] Serum or plasma albumin marvin urement (mass/volume)Ordered By: Jolly Macdonald on 04-22-2025 Albumin [Mass/Vol] 3.7 g/dL 3.4-4.8 [facility] Serum or plasma alkaline macho sphatase measurementOrdered By: Jolly Macdonald on 04-22-2025 ALP [Catalytic activity/Vol] 106 U/L 40-129 [facility] Total proteinOrdered By: Salvador Macdonald on 04-22-2025 Protein [Mass/Vol] 6.6 g/dL 5.9-8.4 [facility] Vitamin B12 ser/plasOrdered By: Jolly Macdonald on 04-22-2025 Cobalamin (Vitamin B12) [Mass/Vol] 383 pg/mL 180-914 [facility] TSH DL <= 0.005 mIU/L QnOrde red By: Jolly Macdonald on 04-01-2025 TSH Qn 2.880 uIU/mL 0.300-4.200 [facility] Bilirubin directOrdered By: Jolly Macdonald on 03-18-2025 Bilirubin.direct [Mass/Vol] 0.12 mg/dL 0.00-0.30 [facility] Bilirubin, totalOrdered By: Jolly Macdonald on 03-18-2025 Bilirubin [Mass/Vol] 0.24 mg/dL 0.00-1.30 [facility] Laboratory - Chemistry and C hemistry - challengeOrdered By: Jolly Macdonald on 03-18-2025 AST [Catalytic activity/Vol] 18 U/L <38 [facility] Serum globulin measurementOr dered By: Jolly Macdonald on 03-18-2025 Globulin (S) [Mass/Vol] 3.0 g/dL 2.2-4.2 [facility] Serum or plasma alanine ty otransferase (ALT) measurementOrdered By: Jolly Macdonald on 03-18-2025 ALT [Catalytic activity/Vol] 15 U/L <47 [facility] Serum or plasma albumin marvin urement (mass/volume)Ordered By: Jolly Macdonald on 03-18-2025 Albumin [Mass/Vol] 3.5 g/dL 3.4-4.8 [facility] Serum or plasma alkaline macho sphatase measurementOrdered By: Jolly Macdonald on 03-18-2025 ALP [Catalytic activity/Vol] 67 U/L 40-129 [facility] Total proteinOrdered By: Salvador Macdonald on 03-18-2025 Protein [Mass/Vol] 6.5 g/dL 5.9-8.4 [facility] Vitamin B12 ser/plasOrdered By: Jolly Macdonald on 03-18-2025 Cobalamin (Vitamin B12) [Mass/Vol] 450 pg/mL 180-914 [facility] Absolute lymphocyte countOrd ered By: Micaela Holder on 02-18-2025 Lymphocytes Auto (Unsp spec) [#/Vol] 1.71 10*3/uL 0.83-4.51 [facility] Absolute neutrophil countOrd ered By: Micaela Holder on 02-18-2025 Neutrophils (Bld) [#/Vol] 3.2 10*3/uL 2.0-7.7 [facility] Anion gap in Serum or Plasma Ordered By: Micaela Holder on 02-18-2025 Anion gap [Moles/Vol] 11 mmol/L 5-15 [facility] Automated lymphocyte count a s percentage of total leukocytesOrdered By: Micaela Holder on 02-18-2025 Lymphocytes/100 WBC Auto (Unsp spec) 28.4 % 19-41 [facility] BUN/creatinine ratioOrdered By: Micaela Holder on 02-18-2025 Urea nitrogen/Creatinine [Mass ratio] 18.7 mg/mg 10-20 [facility] Basophil percentageOrdered B y: Micaela Holder on 02-18-2025 Basophils/100 WBC (Bld) 0.8 % 0-1 [facility] Bilirubin directOrdered By: Micaela Holder on 02-18-2025 Bilirubin.direct [Mass/Vol] 0.09 mg/dL 0.00-0.30 [facility] Bilirubin, totalOrdered By: Micaela Holder on 02-18-2025 Bilirubin [Mass/Vol] 0.21 mg/dL 0.00-1.30 [facility] Carbon dioxide, total [Moles /volume] in Central venous bloodOrdered By: Micaela Holder on 02-18-2025 CO2 [Moles/Vol] 20.9 mmol/L Low 21.0-32.0 [facility] Chloride assayOrdered By: Mylene Holder on 02-18-2025 Chloride [Moles/Vol] 108 mmol/L 98-108 [facility] Eosinophil percentageOrdered By: Micaela Holder on 02-18-2025 Eosinophils/100 WBC (Bld) 5.1 % High 0-5 [facility] Erythrocyte distribution wid th ratioOrdered By: Micaela Holder on 02-18-2025 Erythrocyte distribution width (RBC) [Ratio] 12.9 % 11.6-14.6 [facility] Erythrocyte distribution wid th standard deviationOrdered By: Micaela Holder on 02-18-2025 Erythrocyte distribution width (RBC) [Ratio] 47.1 fl High 35.1-43.9 [facility] Glomerular filtration rate ( GFR) estimation/1.73 sq m using serum, plasma, or whole bOrdered By: Micaela Holder on 02-18-2025 GFR/1.73 sq M.predicted among non-blacks MDRD (S/P/Bld) [Vol rate/Area] 74 mL/min/{1.73_m2} >60 [facility] Comment on above: mL/min/1.73m2 CKD-EP I Creatinine Equation (2020) Hematocrit Auto (Bld) [Volum e fraction]Ordered By: Micaela Holder on 02-18-2025 Hematocrit (Bld) [Volume fraction] 35.9 % Low 40-54 [facility] Hemoglobin measurementOrdere d By: Micaela Holder on 02-18-2025 Hemoglobin (Bld) [Mass/Vol] 11.8 g/dL Low 13.0-16.5 [facility] Immature granulocytes/100 WB C Auto (Bld)Ordered By: Micaela Holder on 02-18-2025 Immature granulocytes/100 WBC (Bld) 0.300 % 0.0-0.9 [facility] Comment on above: IG% - Immature Granu locytes (promyelocytes, myelocytes and metamyelocytes) > 1% indicates that a LEFT SHIFT is Present. Laboratory - Chemistry and C hemistry - challengeOrdered By: Micaela Holder on 02-18-2025 AST [Catalytic activity/Vol] 16 U/L <38 [facility] LevetiracetamOrdered By: Frank Holder on 02-18-2025 levETIRAcetam [Mass/Vol] 16.9 ug/mL 10.0-40.0 [facility] Comment on above: Performed at: [address] [id number] Director: Daniel Bailey MD, Phone: [phone] MCV (mean corpuscular volume ) determinationOrdered By: Micaela Holder on 02-18-2025 MCV (RBC) [Entitic vol] 98.6 fL High 80-94 [facility] Mean corpuscular hemoglobin (MCH) determinationOrdered By: Micaela Holder on 02-18-2025 MCH (RBC) [Entitic mass] 32.4 pg High 27.0-32.0 [facility] Mean corpuscular hemoglobin concentration (MCHC) determinationOrdered By: Micaela Holder on 02-18-2025 MCHC (RBC) [Mass/Vol] 32.9 g/dL 32-36 [facility] Mean platelet volume determi nationOrdered By: Micaela Holder on 02-18-2025 Platelet mean volume (Bld) [Entitic vol] 9.9 fL 6.2-12.0 [facility] Monocyte percentageOrdered B y: Micaela Holder on 02-18-2025 Monocytes/100 WBC (Bld) 11.6 % High 0-10 [facility] Neutrophil percentageOrdered By: Micaela Holder on 02-18-2025 Neutrophils/100 WBC (Bld) 53.8 % 47-70 [facility] Nucleated red blood cell per centageOrdered By: Micaela Holder on 02-18-2025 Nucleated RBC/100 WBC (Bld) [Ratio] 0 % 0-5 [facility] Platelet countOrdered By: Mylene Holder on 02-18-2025 Platelets (Bld) [#/Vol] 243 10*3/uL 150-450 [facility] Potassium measurement (mass/ volume)Ordered By: Micaela Holder on 02-18-2025 Potassium (Unsp spec) [Mass/Vol] 4.2 mmol/L 3.3-5.1 [facility] RBC Auto (Bld) [#/Vol]Ordere d By: Micaela Holder on 02-18-2025 RBC (Bld) [#/Vol] 3.64 10*6/uL Low 4.6-6.2 [facility] Serum creatinine measurement (mass/volume)Ordered By: Micaela Holder on 02-18-2025 Creatinine [Mass/Vol] 1.06 mg/dL 0.70-1.20 [facility] Serum globulin measurementOr dered By: Micaela Holder on 02-18-2025 Globulin (S) [Mass/Vol] 2.9 g/dL 2.2-4.2 [facility] Serum glucose measurement (m ass/volume)Ordered By: Micaela Holder on 02-18-2025 Glucose [Mass/Vol] 103 mg/dL High 70-99 [facility] Serum or plasma alanine ty otransferase (ALT) measurementOrdered By: Micaela Holder on 02-18-2025 ALT [Catalytic activity/Vol] 16 U/L <47 [facility] Serum or plasma albumin marvin urement (mass/volume)Ordered By: Micaela Holder on 02-18-2025 Albumin [Mass/Vol] 3.7 g/dL 3.4-4.8 [facility] Serum or plasma alkaline macho sphatase measurementOrdered By: Micaela Holder on 02-18-2025 ALP [Catalytic activity/Vol] 76 U/L 40-129 [facility] Serum or plasma calcium marvin urement (mass/volume)Ordered By: Micaela Holder on 02-18-2025 Calcium [Mass/Vol] 8.9 mg/dL 7.6-11.0 [facility] Serum or plasma carbamazepin e level (mass/volume)Ordered By: Micaela Holder on 02-18-2025 carBAMazepine [Mass/Vol] 10.7 ug/mL 4.0-12.0 [facility] Serum or plasma urea nitroge n measurement (mass/volume)Ordered By: Micaela Holder on 02-18-2025 Urea nitrogen [Mass/Vol] 20 mg/dL High 4-19 [facility] Sodium levelOrdered By: Jose holdencornelius Gallo on 02-18-2025 Sodium [Moles/Vol] 140 mmol/L 133-145 [facility] TSH DL <= 0.005 mIU/L QnOrde red By: Micaela Holder on 02-18-2025 TSH Qn 4.240 uIU/mL High 0.300-4.200 [facility] Total proteinOrdered By: Frank Holder on 02-18-2025 Protein [Mass/Vol] 6.6 g/dL 5.9-8.4 [facility] Vitamin B12 ser/plasOrdered By: Micaela Holder on 02-18-2025 Cobalamin (Vitamin B12) [Mass/Vol] 429 pg/mL 180-914 [facility] White blood cell (WBC) count Ordered By: Micaela Holder on 02-18-2025 WBC (Bld) [#/Vol] 6.0 10*3/uL 4.4-11.0 [facility] Bilirubin directOrdered By: Jolly Macdonald on 01-14-2025 Bilirubin.direct [Mass/Vol] mg/dL 0.00-0.30 [facility] Bilirubin, totalOrdered By: Jolly Macdonald on 01-14-2025 Bilirubin [Mass/Vol] 0.18 mg/dL 0.00-1.30 [facility] Laboratory - Chemistry and C hemistry - challengeOrdered By: Jolly Macdonald on 01-14-2025 AST [Catalytic activity/Vol] 19 U/L <38 [facility] LevetiracetamOrdered By: Salvador Macdonald on 01-14-2025 levETIRAcetam [Mass/Vol] 15.6 ug/mL 10.0-40.0 [facility] Comment on above: Performed at: [address] [id number] Director: Daniel Bailey MD, Phone: [phone] Serum globulin measurementOr dered By: Jolly Macdonald on 01-14-2025 Globulin (S) [Mass/Vol] 2.9 g/dL 2.2-4.2 [facility] Serum or plasma alanine ty otransferase (ALT) measurementOrdered By: Jolly Macdonald on 01-14-2025 ALT [Catalytic activity/Vol] 14 U/L <47 [facility] Serum or plasma albumin marvin urement (mass/volume)Ordered By: Jolly Macdonald on 01-14-2025 Albumin [Mass/Vol] 3.5 g/dL 3.4-4.8 [facility] Serum or plasma alkaline macho sphatase measurementOrdered By: Jolly Macdonald on 01-14-2025 ALP [Catalytic activity/Vol] 79 U/L 40-129 [facility] Serum or plasma carbamazepin e level (mass/volume)Ordered By: Jolly Macdonald on 01-14-2025 carBAMazepine [Mass/Vol] 10.8 ug/mL 4.0-12.0 [facility] Total proteinOrdered By: Salvador Macdonald on 01-14-2025 Protein [Mass/Vol] 6.5 g/dL 5.9-8.4 [facility] Vitamin B12 ser/plasOrdered By: Jolly Macdonald on 01-14-2025 Cobalamin (Vitamin B12) [Mass/Vol] 431 pg/mL 180-914 [facility] TSH DL <= 0.005 mIU/L QnOrde red By: Micaela Holder on 01-07-2025 TSH Qn 3.420 uIU/mL 0.300-4.200 [facility] Bilirubin directOrdered By: Jolly Macdonald on 12-17-2024 Bilirubin.direct [Mass/Vol] mg/dL 0.00-0.30 [facility] Bilirubin, totalOrdered By: Jolly Macdonald on 12-17-2024 Bilirubin [Mass/Vol] 0.19 mg/dL 0.00-1.30 [facility] Laboratory - Chemistry and C hemistry - challengeOrdered By: Jolly Macdonald on 12-17-2024 AST [Catalytic activity/Vol] 18 U/L <38 [facility] Serum globulin measurementOr dered By: Jolly Macdonald on 12-17-2024 Globulin (S) [Mass/Vol] 2.9 g/dL 2.2-4.2 [facility] Serum or plasma alanine ty otransferase (ALT) measurementOrdered By: Jolly Macdonald on 12-17-2024 ALT [Catalytic activity/Vol] 18 U/L <47 [facility] Serum or plasma albumin marvin urement (mass/volume)Ordered By: Jolly Macdonald on 12-17-2024 Albumin [Mass/Vol] 3.7 g/dL 3.4-4.8 [facility] Serum or plasma alkaline macho sphatase measurementOrdered By: Jolly Macdonald on 12-17-2024 ALP [Catalytic activity/Vol] 85 U/L 40-129 [facility] Total proteinOrdered By: Salvador Macdonald on 12-17-2024 Protein [Mass/Vol] 6.6 g/dL 5.9-8.4 [facility] Vitamin B12 ser/plasOrdered By: Jolly Macdonald on 12-17-2024 Cobalamin (Vitamin B12) [Mass/Vol] 455 pg/mL 180-914 [facility] TSH DL <= 0.005 mIU/L QnOrde red By: Micaela Gallo on 11-26-2024 TSH Qn 3.470 uIU/mL 0.300-4.200 [facility] Bilirubin directOrdered By: Jolly Macdonald on 11-19-2024 Bilirubin.direct [Mass/Vol] 0.11 mg/dL 0.00-0.30 [facility] Bilirubin, totalOrdered By: Jolly Macdonald on 11-19-2024 Bilirubin [Mass/Vol] 0.20 mg/dL 0.00-1.30 [facility] Laboratory - Chemistry and C hemistry - challengeOrdered By: Jolly Macdonald on 11-19-2024 AST [Catalytic activity/Vol] 18 U/L <38 [facility] Serum globulin measurementOr dered By: Jolly Macdonald on 11-19-2024 Globulin (S) [Mass/Vol] 3.1 g/dL 2.2-4.2 [facility] Serum or plasma alanine ty otransferase (ALT) measurementOrdered By: Jolly Macdonald on 11-19-2024 ALT [Catalytic activity/Vol] 12 U/L <47 [facility] Serum or plasma albumin marvin urement (mass/volume)Ordered By: Jolly Macdonald on 11-19-2024 Albumin [Mass/Vol] 3.6 g/dL 3.4-4.8 [facility] Serum or plasma alkaline macho sphatase measurementOrdered By: Jolly Macdonald on 11-19-2024 ALP [Catalytic activity/Vol] 75 U/L 40-129 [facility] Total proteinOrdered By: Salvador Macdonald on 11-19-2024 Protein [Mass/Vol] 6.7 g/dL 5.9-8.4 [facility] Vitamin B12 ser/plasOrdered By: Jolly Macdonald on 11-19-2024 Cobalamin (Vitamin B12) [Mass/Vol] 521 pg/mL 180-914 [facility] Absolute lymphocyte countOrd ered By: Jolly Macdonald on 10-15-2024 Lymphocytes Auto (Unsp spec) [#/Vol] 1.44 10*3/uL 0.83-4.51 [facility] Absolute neutrophil countOrd ered By: Jolly Macdonald on 10-15-2024 Neutrophils (Bld) [#/Vol] 2.5 10*3/uL 2.0-7.7 [facility] Anion gap in Serum or Plasma Ordered By: Jolly Macdonald on 10-15-2024 Anion gap [Moles/Vol] 11 mmol/L 5-15 [facility] Automated lymphocyte count a s percentage of total leukocytesOrdered By: Jolly Macdonald on 10-15-2024 Lymphocytes/100 WBC Auto (Unsp spec) 28.9 % 19-41 [facility] BUN/creatinine ratioOrdered By: Jolly Macdonald on 10-15-2024 Urea nitrogen/Creatinine [Mass ratio] 12.1 mg/mg 10-20 [facility] Basophil percentageOrdered B y: Jolly Macdonald on 10-15-2024 Basophils/100 WBC (Bld) 0.8 % 0-1 [facility] Bilirubin directOrdered By: Jolly Macdonald on 10-15-2024 Bilirubin.direct [Mass/Vol] 0.09 mg/dL 0.00-0.30 [facility] Bilirubin, totalOrdered By: Jolly Macdonald on 10-15-2024 Bilirubin [Mass/Vol] 0.24 mg/dL 0.00-1.30 [facility] Carbon dioxide, total [Moles /volume] in Central venous bloodOrdered By: Jolly Macdonald on 10-15-2024 CO2 [Moles/Vol] 21.3 mmol/L 21.0-32.0 [facility] Chloride assayOrdered By: Saroj Macdonald on 10-15-2024 Chloride [Moles/Vol] 108 mmol/L 98-108 [facility] Eosinophil percentageOrdered By: Jolly Macdonald on 10-15-2024 Eosinophils/100 WBC (Bld) 7.6 % High 0-5 [facility] Erythrocyte distribution wid th (RBC) [Ratio]Ordered By: Jolly Macdonald on 10-15-2024 Erythrocyte distribution width (RBC) [Entitic vol] 45.4 fL High 35.1-43.9 [facility] Erythrocyte distribution wid th ratioOrdered By: Jolly Macdonald on 10-15-2024 Erythrocyte distribution width (RBC) [Ratio] 12.7 % 11.6-14.6 [facility] Erythrocyte distribution wid th standard deviationOrdered By: Jolly Macdonald on 10-15-2024 Erythrocyte distribution width (RBC) [Ratio] 45.4 fl High 35.1-43.9 [facility] GFR/1.73 sq M.predicted yang g non-blacks MDRD (S/P/Bld) [Vol rate/Area]Ordered By: Jolly Macdonald on 10-15-2024 Estimated GFR (MDRD) Non-Af Amer 78 >60 [facility] Comment on above: mL/min/1.73m2 CKD-EP I Creatinine Equation (2020) Glomerular filtration rate ( GFR) estimation/1.73 sq m using serum, plasma, or whole bOrdered By: Jolly Macdonald on 10-15-2024 GFR/1.73 sq M.predicted among non-blacks MDRD (S/P/Bld) [Vol rate/Area] 78 mL/min/{1.73_m2} >60 [facility] Comment on above: mL/min/1.73m2 CKD-EP I Creatinine Equation (2020) Hematocrit Auto (Bld) [Volum e fraction]Ordered By: Jolly Macdonald on 10-15-2024 Hematocrit (Bld) [Volume fraction] 33.6 % Low 40-54 [facility] Hemoglobin measurementOrdere d By: Jolly Macdonald on 10-15-2024 Hemoglobin (Bld) [Mass/Vol] 11.0 g/dL Low 13.0-16.5 [facility] Immature granulocytes/100 WB C Auto (Bld)Ordered By: Jolly Macdonald on 10-15-2024 Immature granulocytes/100 WBC (Bld) 0.400 % 0.0-0.9 [facility] Comment on above: IG% - Immature Granu locytes (promyelocytes, myelocytes and metamyelocytes) > 1% indicates that a LEFT SHIFT is Present. Laboratory - Chemistry and C hemistry - challengeOrdered By: Jolly Macdonald on 10-15-2024 AST [Catalytic activity/Vol] 19 U/L <38 [facility] Lymphocytes Auto (Unsp spec) [#/Vol]Ordered By: Jolly Macdonald on 10-15-2024 Lymphocytes (Bld) [#/Vol] 1.44 10*3/uL 0.83-4.51 [facility] Lymphocytes/100 WBC Auto (Un sp spec)Ordered By: Jolly Macdonald on 10-15-2024 Lymphocytes/100 WBC (Bld) 28.9 % 19-41 [facility] MCV (mean corpuscular volume ) determinationOrdered By: Jolly Macdonald on 10-15-2024 MCV (RBC) [Entitic vol] 98.2 fL High 80-94 [facility] Mean corpuscular hemoglobin (MCH) determinationOrdered By: Jolly Macdonald on 10-15-2024 MCH (RBC) [Entitic mass] 32.2 pg High 27.0-32.0 [facility] Mean corpuscular hemoglobin concentration (MCHC) determinationOrdered By: Jolly Macdonald on 10-15-2024 MCHC (RBC) [Mass/Vol] 32.7 g/dL 32-36 [facility] Mean platelet volume determi nationOrdered By: Jolly Macdonald on 10-15-2024 Platelet mean volume (Bld) [Entitic vol] 10.4 fL 6.2-12.0 [facility] Monocyte percentageOrdered B y: Jolly Macdonald on 10-15-2024 Monocytes/100 WBC (Bld) 13.1 % High 0-10 [facility] Neutrophil percentageOrdered By: Jolly Macdonald on 10-15-2024 Neutrophils/100 WBC (Bld) 49.2 % 47-70 [facility] Nucleated red blood cell per centageOrdered By: Jolly Macdonald on 10-15-2024 Nucleated RBC/100 WBC (Bld) [Ratio] 0 % 0-5 [facility] Platelet countOrdered By: Saroj Macdonald on 10-15-2024 Platelets (Bld) [#/Vol] 226 10*3/uL 150-450 [facility] Potassium (Unsp spec) [Mass/ Vol]Ordered By: Jolly Macdonald on 10-15-2024 Potassium [Moles/Vol] 4.0 mmol/L 3.3-5.1 [facility] Potassium measurement (mass/ volume)Ordered By: Jolly Macdonald on 10-15-2024 Potassium (Unsp spec) [Mass/Vol] 4.0 mmol/L 3.3-5.1 [facility] RBC Auto (Bld) [#/Vol]Ordere d By: Jolly Macdonald on 10-15-2024 RBC (Bld) [#/Vol] 3.42 10*6/uL Low 4.6-6.2 [facility] Serum creatinine measurement (mass/volume)Ordered By: Jolly Macdonald on 10-15-2024 Creatinine [Mass/Vol] 1.01 mg/dL 0.70-1.20 [facility] Serum globulin measurementOr dered By: Jolly Macdonald on 10-15-2024 Globulin (S) [Mass/Vol] 2.9 g/dL 2.2-4.2 [facility] Serum glucose measurement (m ass/volume)Ordered By: Jolly Macdonald on 10-15-2024 Glucose [Mass/Vol] 102 mg/dL High 70-99 [facility] Serum or plasma alanine ty otransferase (ALT) measurementOrdered By: Jolly Macdonald on 10-15-2024 ALT [Catalytic activity/Vol] 15 U/L <47 [facility] Serum or plasma albumin marvin urement (mass/volume)Ordered By: Jolly Macdonald on 10-15-2024 Albumin [Mass/Vol] 3.5 g/dL 3.4-4.8 [facility] Serum or plasma alkaline macho sphatase measurementOrdered By: Jolly Macdonald on 10-15-2024 ALP [Catalytic activity/Vol] 79 U/L 40-129 [facility] Serum or plasma calcium marvin urement (mass/volume)Ordered By: Jolly Macdonald on 10-15-2024 Calcium [Mass/Vol] 8.6 mg/dL 7.6-11.0 [facility] Serum or plasma urea nitroge n measurement (mass/volume)Ordered By: Jolly Macdonald on 10-15-2024 Urea nitrogen [Mass/Vol] 12 mg/dL 4-19 [facility] Sodium levelOrdered By: Larissa Macdonald on 10-15-2024 Sodium [Moles/Vol] 141 mmol/L 133-145 [facility] TSH DL <= 0.005 mIU/L QnOrde red By: Jolly Macdonald on 10-15-2024 Thyroid Stimulating Hormone (TSH) 1.270 uIU/mL 0.300-4.200 [facility] TSH Qn 1.270 uIU/mL 0.300-4.200 [facility] Total proteinOrdered By: Salvador Macdonald on 10-15-2024 Protein [Mass/Vol] 6.4 g/dL 5.9-8.4 [facility] Vitamin B12 ser/plasOrdered By: Jolly Macdonald on 10-15-2024 Cobalamin (Vitamin B12) [Mass/Vol] 533 pg/mL 180-914 [facility] White blood cell (WBC) count Ordered By: Jolly Macdonald on 10-15-2024 WBC (Bld) [#/Vol] 5.0 10*3/uL 4.4-11.0 [facility] Calculated very low density lipoprotein (VLDL) cholesterol measurementOrdered By: Micaela Holder on 10-04-2024 Calculated very low density lipoprotein (VLDL) cholesterol measurement 9 mg/dL 5-40 [facility] VLDL Cholesterol 9 mg/dL 5-40 [facility] LDL calc ser/plasOrdered By: Micaela Holder on 10-04-2024 Cholesterol in LDL [Mass/Vol] 113 mg/dL [facility] Comment on above: Slnlxukwpv=654-613 m g/dL & Higher Hrkd=587 mg/dL or greater LDL Cholesterol, Calculated 113 mg/dL [facility] Comment on above: Smwqkmxfdf=017-512 m g/dL & Higher Mxsd=485 mg/dL or greater Screening total cholesterol/ high density lipoprotein (HDL) cholesterol ratioOrdered By: Micaela Holder on 10-04-2024 Cholesterol.total/Choles terol in HDL [Mass ratio] 2.88 {ratio} [facility] Serum or plasma cholesterol in HDL measurement (mass/volume)Ordered By: Micaela Holder on 10-04-2024 Cholesterol in HDL [Mass/Vol] 65 mg/dL >40 [facility] Comment on above: National Cholesterol Education Program (NCEP) guidelines:<40 mg/dL: Low HDL-cholesterol (major risk factor for CHD)>= 60 mg/dL: High HDL-cholesterol (negative risk factor for CHD)HDL-cholesterol is affected by a number of factors, e.g. smoking, exercise, hormones, sex and age. Serum or plasma cholesterol measurement (mass/volume)Ordered By: Micaela Holder on 10-04-2024 Cholesterol [Mass/Vol] 187 mg/dL <201 [facility] Comment on above: Cholesterol level, D esirable <200 mg/dLBorderline high cholesterol 200-239 mg/dLHigh cholesterol >=240 mg/dLRecommendations of the NCEP Adult Treatment Panel for the following risk-cutoff thresholds for the [place] population. Triglycerides measurementOrd ered By: Micaela Holder on 10-04-2024 Triglyceride [Mass/Vol] 46 mg/dL <199 [facility] Comment on above: The drugs N-Acetylcy steine and Metamizole may falsely depress this assay. Normal range: <150 mg/dLBorderline High: 150-199 mg/dLHigh: 200-499 mg/dLVery High: >500 mg/dL Bilirubin directOrdered By: Micaela Holder on 09-17-2024 Bilirubin.direct [Mass/Vol] 0.09 mg/dL 0.00-0.30 [facility] Bilirubin, totalOrdered By: Micaela Holder on 09-17-2024 Bilirubin [Mass/Vol] 0.18 mg/dL 0.00-1.30 [facility] Laboratory - Chemistry and C hemistry - challengeOrdered By: Micaela Holder on 09-17-2024 AST [Catalytic activity/Vol] 19 U/L <38 [facility] Serum globulin measurementOr dered By: Micaela Holder on 09-17-2024 Globulin (S) [Mass/Vol] 3.0 g/dL 2.2-4.2 [facility] Serum or plasma alanine ty otransferase (ALT) measurementOrdered By: Micaela Holder on 09-17-2024 ALT [Catalytic activity/Vol] 15 U/L <47 [facility] Serum or plasma albumin marvin urement (mass/volume)Ordered By: Micaela Holder on 09-17-2024 Albumin [Mass/Vol] 3.4 g/dL 3.4-4.8 [facility] Serum or plasma alkaline macho sphatase measurementOrdered By: Micaela Holder on 09-17-2024 ALP [Catalytic activity/Vol] 74 U/L 40-129 [facility] Total proteinOrdered By: Frank Holder on 09-17-2024 Protein [Mass/Vol] 6.4 g/dL 5.9-8.4 [facility] Vitamin B12 ser/plasOrdered By: Micaela Holder on 09-17-2024 Cobalamin (Vitamin B12) [Mass/Vol] 603 pg/mL 180-914 [facility] Serum or plasma thyroid stim ulating hormone (TSH) measurement (units/volume)Ordered By: Micaela Holder on 09-03-2024 TSH Qn 18.400 uIU/mL High 0.358-3.740 [facility] TSH QnOrdered By: Micaela Holder on 09-03-2024 Thyroid Stimulating Hormone (TSH) 18.400 uIU/mL High 0.358-3.740 [facility] Bilirubin directOrdered By: Micaela Holder on 08-20-2024 Bilirubin.direct [Mass/Vol] 0.11 mg/dL 0.00-0.30 [facility] Bilirubin, totalOrdered By: Micaela Holder on 08-20-2024 Bilirubin [Mass/Vol] 0.30 mg/dL 0.20-1.00 [facility] Comment on above: For patients on eltr ombopag therapy, use of Dimension [place] TBIL is not recommended. Laboratory - Chemistry and C hemistry - challengeOrdered By: Micaela Holder on 08-20-2024 AST [Catalytic activity/Vol] 24 U/L 15-37 [facility] Serum globulin measurementOr dered By: Micaela Holder on 08-20-2024 Globulin (S) [Mass/Vol] 3.8 g/dL 2.2-4.2 [facility] Serum or plasma alanine ty otransferase (ALT) measurementOrdered By: Micaela Holder on 08-20-2024 ALT [Catalytic activity/Vol] 38 U/L 16-61 [facility] Serum or plasma albumin marvin urement (mass/volume)Ordered By: Micaela Holder on 08-20-2024 Albumin [Mass/Vol] 3.0 g/dL Low 3.2-5.0 [facility] Serum or plasma alkaline macho sphatase measurementOrdered By: Micaela Holder on 08-20-2024 ALP [Catalytic activity/Vol] 86 U/L 45-117 [facility] Total proteinOrdered By: Frank Holder on 08-20-2024 Protein [Mass/Vol] 6.8 g/dL 6.4-8.2 [facility] Vitamin B12 measurementOrder ed By: Micaela Holder on 08-20-2024 Cobalamin (Vitamin B12) [Mass/Vol] 1165 pg/mL High 211-911 [facility] 15-LP-Yvgpbjo DOrdered By: Haroon Holder on 07-23-2024 Vitamin D 25-Hydroxy 46.8 ng/mL [facility] Comment on above: Vitamin D 25(OH) Sta tus Range Deficiency <20 ng/mL (50nmol/L) Insufficiency 20 - 30 ng/mL (50 - 75 nmol/L) Sufficiency 30 - 100 ng/mL (75 - 250 nmol/L) Toxicity >100 ng/mL (>250 nmol/L) Bilirubin directOrdered By: Micaela Holder on 07-23-2024 Bilirubin.direct [Mass/Vol] 0.06 mg/dL 0.00-0.30 [facility] Bilirubin, totalOrdered By: Micaela Holder on 07-23-2024 Bilirubin [Mass/Vol] 0.30 mg/dL 0.20-1.00 [facility] Comment on above: For patients on eltr ombopag therapy, use of Dimension [place] TBIL is not recommended. Laboratory - Chemistry and C hemistry - challengeOrdered By: Micaela Holder on 07-23-2024 AST [Catalytic activity/Vol] 16 U/L 15-37 [facility] LevetiracetamOrdered By: Frank Holder on 07-23-2024 Levetiracetam (Keppra) Level 14.1 ug/mL 10.0-40.0 [facility] Comment on above: Performed at: - [facility] [address] [id number] Director: Daniel Bailey MD, Phone: [phone] Serum globulin measurementOr dered By: Micaela Holder on 07-23-2024 Globulin (S) [Mass/Vol] 3.7 g/dL 2.2-4.2 [facility] Serum or plasma alanine ty otransferase (ALT) measurementOrdered By: Micaela Holder on 07-23-2024 ALT [Catalytic activity/Vol] 26 U/L 16-61 [facility] Serum or plasma albumin marvin urement (mass/volume)Ordered By: Micaela Holder on 07-23-2024 Albumin [Mass/Vol] 2.9 g/dL Low 3.2-5.0 [facility] Serum or plasma alkaline macho sphatase measurementOrdered By: Micaela Holder on 07-23-2024 ALP [Catalytic activity/Vol] 70 U/L 45-117 [facility] TSH QnOrdered By: Micaela Holder on 07-23-2024 Thyroid Stimulating Hormone (TSH) 18.700 uIU/mL High 0.358-3.740 [facility] Total proteinOrdered By: Frank Holder on 07-23-2024 Protein [Mass/Vol] 6.6 g/dL 6.4-8.2 [facility] Vitamin B12 measurementOrder ed By: Micaela Holder on 07-23-2024 Cobalamin (Vitamin B12) [Mass/Vol] 1011 pg/mL High 211-911 [facility] carBAMazepine [Mass/Vol]Orde red By: Micaela Holder on 07-23-2024 Carbamazepine (Tegretol) Level 9.6 ug/mL 4.0-12.0 [facility] CNPNon 07-02-2024 CNPN Telephone (FAMPWS) J LUIS MADERA ([id number]) 1950 M Date Time Provider Department 07/02/24 USMAN PATEL During your visit today, we recorded the following information about you: Norma Rogers MA 07/02/2024 9:25 AM Signed Type of letter/form/fax request - order from [employer] [facility] Form received from fax on 1 floor and placed on MD desk (Dr. Patel) for completion. Completed form needs to be faxed to [employer] at [phone]. Route to [place] when form completed for processing Julieta Mckay MA 07/02/2024 11:53 AM Signed Form signed and faxed back to number below. Julieta Mckay MA Allergies As of Date: 07/02/2024 Noted Allergy Reaction SEASONAL ALLERGIES 03/13/2012 14 - Other: See Comments Date Reviewed: 10/20/2023 Reviewed by: Julieta Mckay MA - Fully Assessed Reason for Visit: Forms [913] Cmt: 90 day order for [employer] Prescriptions as of 07/02/2024 - levETIRAcetam (KEPPRA) [...] Encounter Status:Closed by JULIETA MCKAY on 07/02/24 [facility] ([id number]) 1950 M Date Time Provider Department 05/09/24 USMAN PATEL [facility] During your visit today, we recorded the following information about you: Julieta Mckay MA 05/09/2024 1:27 PM Signed Type of form: 90 day order for Adult Day Care Services through [employer] Form received via fax When form is completed, Fax form to [phone] Form has been forwarded to Physician Desk: ALLISON Velazquez Kathryn, MA 05/10/2024 9:00 AM Signed Faxed. Norma Rogers MA Allergies As of Date: 05/09/2024 Noted Allergy Reaction SEASONAL ALLERGIES 03/13/2012 14 - Other: See Comments Date Reviewed: 10/20/2023 Reviewed by: Julieta Mckay MA - Fully Assessed Reason for Visit: Forms [913] Cmt: [facility] Prescriptions as of 05/10/2024 - levETIRAcetam (KEPPRA) [...] Encounter Status:Closed by [facility] LU[facility] MADERA ([id number]) 1950 M Date Time Provider Department 02/06/24 USMAN PATEL During your visit today, we recorded the following information about you: Norma Rogers MA 02/06/2024 9:49 AM Signed Type of letter/form/fax request - 90 day order for adult daycare Form received from fax on 1 floor and placed on MD desk (Dr. Patel) for completion. Completed form needs to be faxed to [facility] at [phone].. Route to [place] when form completed for processing Norma Rogers MA 02/06/2024 3:28 PM Signed Form faxed. Norma Rogers MA Allergies As of Date: 02/06/2024 Noted Allergy Reaction SEASONAL ALLERGIES 03/13/2012 14 - Other: See Comments Date Reviewed: 10/20/2023 Reviewed by: Julieta Mckay MA - Fully Assessed Reason for Visit: Forms [913] Cmt: [facility] 90 day order Prescriptions as of 02/06/2024 [...] Encounter Status:Closed by NORMA ROGERS on 02/06/24 [facility] CNOVon 10-20-2023 CNOV Office Visit (FAMPWS ) J LUIS MADERA ([id number]) 1950 M Date Time Provider Department 10/20/23 2:00 PM USMAN PATEL [facility] During your visit today, we recorded the [...] Vaccine( season) due on 03/17/2023 Advance Directive Dis (more content not included)... Normal [facility] HbA1c (Bld)on 10-20-2023 Average glucose Estimated from glycated hemoglobin (Bld) [Mass/Vol] 123 mg/dL Normal [facility] Comment on above: Order Comment: Eiml obrien Type: BLOOD SPECIMENOrdering Facility: [facility] Address: [address] [place] [address] Result Comment: eAG: (Estimated average glucose) is a calculated value from HgbA1c and is customer loyalty representative of the average blood glucose level in the last 2-3 month period. Performed By: #### 5 5454-3 ####[facility]IA [id number] [place] [address] [place] [facility] HbA1c (Bld) [Mass fraction] 5.9 % High 4.3-5.6 [facility] Comment on above: Order Comment: Emil obrien Type: BLOOD SPECIMENOrdering Facility: [facility] Address: [address] [place] [address] Result Comment: [place] Diabetes Association guidelines indicate that patients with HgbA1c in the range 5.7-6.4% are at increased risk for development of diabetes, and intervention by lifestyle modification may be beneficial. HgbA1c greater or equal to 6.5% is considered diagnostic of diabetes. Performed By: #### 5 5454-3 ####[facility] [id number] [address] [place] TSH SerPl-aCncon 10-20-2023 TSH Qn 0.998 m[IU]/L Normal 0.270-4.200 [facility] Comment on above: Order Comment: Emil obrien Type: BLOOD SPECIMENOrdering Facility: [facility] Address: [address] [place] [address] Performed By: #### 3 016-3 ####[facility] [id number] [address] [place] CNPNon 10-19-2023 CNPN Telephone (FAMPWS) J LUIS MADERA ([id number]) 1950 M Date Time Provider Department 10/19/23 USMAN PATEL During your visit today, we recorded the following information about you: Julieta Mckay MA 10/19/2023 9:29 AM Signed Type of form: 90 day order from [employer] Form received via fax When form is completed, Fax form to [phone] Form has been forwarded to Physician Desk: ALLISON Velazquez Rilee, MA 10/19/2023 11:56 AM Signed Form signed and faxed back to information below. Julieta Mckay MA Allergies As of Date: 10/19/2023 Noted Allergy Reaction SEASONAL ALLERGIES 03/13/2012 14 - Other: See Comments Date Reviewed: 08/28/2023 Reviewed by: Aiden Mccrary MD - Fully Assessed Reason for Visit: Forms [913] Cmt: Orders from [employer] - 90 day Prescriptions as of 10/19/2023 [...] Status:Closed by JULIETA MCKAY on 10/19/23 Normal [facility] US CAROTID ARTERIES [facility] LABon 09-19-2023 US CAROTID ARTERIES [facility] Non-Invasive Vascular Laboratory [facility] Carotid Duplex Bilateral/Complete Date of service/time: 09/19/2023 [...] Interpreting physician: MANISHA Melendez DO Final CC [employer] [facility] Image : [id number] See Link below for Image Normal [facility] ECHOon 09-05-2023 Echocardiography Echocardiography Report: Transthoracic Echo [facility] Date of service: 09/05/2023 1:10:31 PM [facility]ER Ordering physician: AIDEN MCCRARY Indication: Syncope Technologist: Dayna Riojas [facility] Interpreting physician: Livan Flores DO PATIENT: Name: [...] * * Final * * * CC [employer] Medical Image : [id number] Normal [facility] CNOVon 08-28-2023 CNOV Office Visit (CAWSTR ) J LUIS MADERA ([id number]) 1950 M Date Time Provider Department 08/28/23 10:20 AM AIDEN MCCRARY During your visit today, we recorded the following information about you: Pulse Respiration Blood pressure Weight 71/minute 16/minute 151/64 91.6 kg Aiden Mccrary MD 08/28/2023 11:43 AM Signed [facility]ARDIOLOGY Cardiology ([address]) [address] [facility] [address] OUTPATIENT VISIT DATE 08/28/2023 PRIMARY CARE PHYSICIAN: Usman Patel [address] [place] [address] REFERRING PHYSICIAN: Temitope Lara [address] [facility] [address] CHIEF COMPLAINT: Dizziness HISTORY OF PRESENT ILLNESS: [...] S2 with (more content not included)... Normal [facility] MRI CERVICAL SPINE WO IVCONo n [...] vertebrae with counting from the craniocervical junction. Art Therapy Specialist: PSCB Transcribe Date/Time: Aug 15 2023 2:23P Dictated by : SHIRIN PRADO MD This examination was interpreted and the report reviewed and electronically signed by: SHIRIN PRADO MD on Aug 15 2023 2:25PM EST [id number] Normal [facility] Regulo 08-14-2023 CNPN Telephone (4CQ) J LUIS MADERA ([id number]) 1950 M Date Time Provider Department 08/14/23 USMAN PATEL 4CQ During your visit today, we recorded the following information about you: Batsheva Parry 08/14/2023 2:32 PM Signed Patient is requesting new PT order for Dizziness [R42] Balance problem [R26.89] Abnormality of gait [R26.9] And then would like this order faxed to [facility] as [place] is to far to travel for the patient. Usman Patel MD 08/14/2023 3:22 PM Signed Order printed MD Ken Fraire Ma, Kathryn 08/14/2023 3:40 PM Signed Order faxed to [facility]. Detailed message left on pt identified VM [...] [R26.89] Dizziness [R42] Order(s):CONSULT TO PHYSICAL THERAPY [6031] Order #: [id number]: 1 FUTURE Prescriptions as of 08/14/2023 - [...] Status:Closed by NORMA ROGERS MA on 08/14/23 [facility] CNTHERAPYon 08-08-2023 CNTHERAPY OT/PT/Speech Visit (LDPT) J LUIS MADERA ([id number]) 1950 M Date Time Provider Department 08/08/23 1:30 PM MARY KAY BAIRES LDPT Date Time Provider Department Center 08/08/2023 1:30 PM [id number], SARAH LDPT [facility] Reason for Visit: PT Progress Note [...] tablet by mouth two times a day. Guide Excursion: Addendum Therapy (PT/OT/Speech/Resp) ID: [id number] 08/08/2023 2:14 PM Author: MARY KAY BAIRES Signed by MARY KAY BAIRES PT, DPT on 08/08/2023 at 2:14 PM * * * This document replaces document [id number] * * * Document text: Program_ID:[id number] Access Code: [email or web address] URL: [email or web address] Date: 08-08-2023 Prepared By: Mary Kay Baires [...] 2 sets - 10 reps ----- Normal [facility] THERAPY NTon 08-08-2023 THERAPY NT HNO ID: [id number] Author: MARY KAY BAIRES, PT, DPT Service: ? Author Type: Physical Therapist Type: Therapy (PT/OT/Speech/Resp) Filed: 08/08/2023 14:06 Note Text: Program_ID:[id number] Access Code: [email or web address] URL: [email or web address] Date: 08-08-2023 Prepared By: Mary Kay Baires Program Notes Exercises - Sit to Stand with Armchair - x daily - 7 x weekly - 2 sets - 10 reps Normal [facility] CNPNon 07-20-2023 GERAN Telephone (NE50MN) J LUIS MADERA ([id number]) 1950 M Date Time Provider Department 07/20/23 [...] Encounter Status:Closed by CAITY CAI on 07/20/23 [facility] CNOVon 07-19-2023 CNOV Office Visit (NEMOWS ) J LUIS MADERA ([id number]) 1950 M Date Time Provider Department 07/19/23 2:30 PM TEMITOPE LARA During your visit today, we recorded the following information about you: Pulse Respiration Blood pressure Weight 74/minute 18/minute 125/78 90.3 kg Temitope Lara PA-C 07/19/2023 4:16 PM Signed [facility] Out[facility] Date: July 19, 2023 Patient Name: J Luis Madera Referring physician: Usman Patel [address] [id number] Consult requested for dizziness by Dr. Patel. Recommendations will be communicated via shared medical record or US mail. Primary physician: Usman Patel [address] [place] [address] Reason for Evaluation: Dizziness and seizures Subjective [...] He is here for established care with [facility] epilepsy department again. No seizure was reported [...] niece called EMS and he was transported [facility]. Reported that his dizziness gets worse with standing but denies any presyncope or lightheaded sensation, described more of a room spinning dizziness. Improves when he sits down or lays down, has difficulty stating how often it occurs but notes that he falls from this dizziness once or twice a month. MRI obtained at [facility] showed no acute infarct and stable chronic changes. Patient does not remember much about his admission, states that no scans were obtained and has difficulty remembering. Notes that he has passed out in the past secondary to this dizziness and he estimates the last occurrence was 6 to 12 months ago. 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 Normal [facility] CNPNon 07-19-2023 CNPN Telephone (FAMPWS) J LUIS MADERA ([id number]) 1950 M Date Time Provider Department 07/19/23 [...] Status:Closed by BRENDA LUNDY on 07/19/23 Normal [facility] CRP SerPl-mCncon 07-19-2023 CRP [Mass/Vol] 1.3 mg/dL High <0.9 [facility] Comment on above: Order Comment: Speci men Type: BLOOD SPECIMENOrdering Facility: [facility] Address: [address] [place] [address] Performed By: #### 2 132-9, 1987-5, 2885-2 ####[facility] LABCLIA [id number] [place] [address] [place] ESR Westergren method (Bld) [Velocity]on 07-19-2023 ESR (Bld) [Velocity] 46 mm/h High 0-15 [facility] Comment on above: Order Comment: Speci men Type: BLOOD SPECIMENOrdering Facility: [facility] Address: [address] [place] [address] Performed By: #### 4 537-7 ####[facility] LABIA [id number] [place] [address] [place] Methylmalonate SerPl-sCncon 07-19-2023 Methylmalonate [Moles/Vol] 0.40 umol/L Normal <=0.40 [facility] Comment on above: Order Comment: Speci men Type: BLOOD SPECIMENOrdering Facility: [facility] Address: [address] [place] [address] Result Comment: This test was developed and its performance characteristics determined by [facility]'s Alon JJody [facility] Pathology and Laboratory Medicine [place] ([facility]). It has not been cleared or approved by the FDA. [facility] is regulated under CLIA as qualified to perform high-complexity testing. This test is used for clinical purposes. It should not be regarded as investigational or for research. Performed By: #### 1 3964-2 ####[facility] LABIA [id number] [place] [address] [place] PROTEIN ELECTROPHORESIS SERU M WITH ANGEL (P)on 07-19-2023 Albumin [Mass/Vol] 4.11 g/dL Normal 3.43-5.41 [facility] Comment on above: Order Comment: Speci men Type: BLOOD SPECIMENOrdering Facility: [facility] Address: [address] [place] [address] Performed By: #### L [id number] ####[facility] LABIA [id number] [place] [address] [place] Alpha 1 globulin Elph [Mass/Vol] 0.30 g/dL Normal 0.18-0.43 [facility] Comment on above: Order Comment: Speci men Type: BLOOD SPECIMENOrdering Facility: [facility] Address: [address] [place] [address] Performed By: #### L [id number] ####[facility] LABIA [id number] [address] [place] Alpha 2 globulin Elph [Mass/Vol] 0.79 g/dL Normal 0.42-0.98 [facility] Comment on above: Order Comment: Speci men Type: BLOOD SPECIMENOrdering Facility: [facility] Address: [address] [place] [address] Performed By: #### L [id number] ####[facility] LABIA [id number] [place] [address] [place] Beta globulin Elph [Mass/Vol] 0.89 g/dL Normal 0.61-1.17 [facility] Comment on above: Order Comment: Speci men Type: BLOOD SPECIMENOrdering Facility: [facility] Address: [address] [place] [address] Performed By: #### L [id number] ####[facility] LABIA [id number] [place] [address] [place] COMMENT (SERUM PROT ELECTRO) Monoclonal Protein analysis (immunofixation) is not indicated. Normal [facility] Comment on above: Order Comment: Speci men Type: BLOOD SPECIMENOrdering Facility: [facility] Address: [address] [place] [address] Performed By: #### L [id number] ####[facility] LABIA [id number] [place] [address] [place] Gamma globulin Elph [Mass/Vol] 1.12 g/dL Normal 0.53-1.51 [facility] Comment on above: Order Comment: Speci men Type: BLOOD SPECIMENOrdering Facility: [facility] Address: [address] [place] [address] Performed By: #### L [id number] ####[facility] LABIA [id number] [place] [address] [place] M-PROTEIN LOCATION Normal [facility] Comment on above: Order Comment: Speci men Type: BLOOD SPECIMENOrdering Facility: [facility] Address: [address] [place] [address] Result Comment: Not Applicable. Performed By: #### L [id number] ####[facility] LABIA [id number] [place] [address] [place] Protein Fractions [Interp] No definitive M protein is identified on protein electrophoresis. Normal No definitive M protein is identified on protein electrophores is. [facility] Comment on above: Order Comment: Speci men Type: BLOOD SPECIMENOrdering Facility: [facility] Address: [address] [place] [address] Performed By: #### L [id number] ####[facility] LABCLIA [id number] [place] [address] [place] Protein.monoclonal Elph [Mass/Vol] 0.00 g/dL Normal <=0.00 [facility] Comment on above: Order Comment: Speci men Type: BLOOD SPECIMENOrdering Facility: [facility] Address: [address] [place] [address] Performed By: #### L [id number] ####[facility] LABCLIA [id number] [place] [address] [place] SPE STAFF REVIEW Reviewed by Dr. Kira May MD [facility] Comment on above: Order Comment: Speci men Type: BLOOD SPECIMENOrdering Facility: [facility] Address: [address] [place] [address] Performed By: #### L [id number] ####[facility] LABCLIA [id number] [place] [address] [place] Prot SerPl-ncon 07-19-2023 Protein [Mass/Vol] 7.2 g/dL Normal 6.3-8.0 [facility] Comment on above: Order Comment: Speci men Type: BLOOD SPECIMENOrdering Facility: [facility] Address: [address] [place] [address] Performed By: #### 2 132-9, 2884-08 ####[facility] LABCLIA [id number] [address] [place] Vit B12 [facility] 024 Cobalamin (Vitamin B12) [Mass/Vol] 285 pg/mL Normal 232-1245 [facility] Comment on above: Order Comment: Speci men Type: BLOOD SPECIMENOrdering Facility: [facility] Address: [address] [place] [address] Performed By: #### 2 132-9, 2884-08 ####[facility] LABIA [id number] [place] [address] [place] CNTHERAPYon 07-14-2023 CNTHERAPY OT/PT/Speech Visit (LDPT) J LUIS MADERA ([id number]) 1950 M Date Time Provider Department 07/14/23 3:00 PM MADDIJOSE MARTIN STERLINGELSA LDPT Date Time Provider Department Center 07/14/2023 3:00 PM [id number], GABRIEL*LDPT [facility] Reason for Visit: PT Eval [747] [...] by mouth two times a day. Normal [facility] Laboratory - Chemistry and C hemistry - challengeOrdered By: Kike Malave on 06-25-2023 Free T4 [Mass/Vol] 0.82 ng/dL 0.76-1.46 [facility] Absolute lymphocyte countOrd ered By: Raoul Oliver on 06-24-2023 Lymphocytes Auto (Unsp spec) [#/Vol] 1.39 10*3/uL 0.83-4.51 [facility] Basophil percentageOrdered B y: Raoul Oliver on 06-24-2023 Basophils/100 WBC (Bld) 1.2 % 0-1 [facility] Chloride [Moles/Vol] 111 mmol/L 98-107 [facility] Eosinophils/100 WBC (Bld) 5.3 % 0-5 [facility] Glucose [Mass/Vol] 105 mg/dL 74-106 [facility] Comment on above: Fasting Glucose resu lt from 100 to 125 mg/dL suggests IMPAIRED HOMEOSTASIS per A.D.A. criteria. Neutrophils (Bld) [#/Vol] 3.3 10*3/uL 2.0-7.7 [facility] Neutrophils/100 WBC (Bld) 57.0 % 47-70 [facility] Potassium [Moles/Vol] 3.8 mmol/L 3.5-5.1 [facility] Sodium [Moles/Vol] 140 mmol/L 136-145 [facility] WBC (Bld) [#/Vol] 5.7 10*3/uL 4.4-11.0 [facility] Blood erythrocytes count (nu mber/volume)Ordered By: Raoul Oliver on 06-24-2023 RBC (Bld) [#/Vol] 3.54 10*6/uL 4.6-6.2 [facility] Blood hemoglobin measurement (mass/volume)Ordered By: Raoul Oliver on 06-24-2023 Hemoglobin (Bld) [Mass/Vol] 11.4 g/dL 13.0-16.5 [facility] Blood lymphocytes/100 leukoc ytesOrdered By: Raoul Oliver on 06-24-2023 Lymphocytes/100 WBC (Bld) 24.4 % 19-41 [facility] Blood monocytes/100 leukocyt esOrdered By: Raoul Oliver on 06-24-2023 Monocytes/100 WBC (Bld) 11.4 % 0-10 [facility] Blood platelet mean volumeOr dered By: Raoul Oliver on 06-24-2023 Platelet mean volume (Bld) [Entitic vol] 10.0 fL 6.2-12.0 [facility] Determination of erythrocyte mean corpuscular volume (MCV)Ordered By: Raoul Oliver on 06-24-2023 MCV (RBC) [Entitic vol] 99.2 fL 80-94 [facility] Hematocrit Auto (Bld) [Volum e fraction]Ordered By: Raoul Oliver on 06-24-2023 Hematocrit (Bld) [Volume fraction] 35.1 % 40-54 [facility] Laboratory - Chemistry and C hemistry - challengeOrdered By: Raoul Oliver on 06-24-2023 CO2 [Moles/Vol] 26.0 mmol/L 21.0-32.0 [facility] Urea nitrogen/Creatinine [Mass ratio] 9.0 mg/mg 10-20 [facility] Laboratory - Hematology and Cell countsOrdered By: Raoul Oliver on 06-24-2023 Erythrocyte distribution width (RBC) [Entitic vol] 48.0 fL 35.1-43.9 [facility] Erythrocyte distribution width (RBC) [Ratio] 13.1 % 11.6-14.6 [facility] Immature granulocytes/100 WBC (Bld) 0.700 % 0.0-0.9 [facility] Comment on above: IG% - Immature Granu locytes (promyelocytes, myelocytes and metamyelocytes) > 1% indicates that a LEFT SHIFT is Present. MCH (RBC) [Entitic mass] 32.2 pg 27.0-32.0 [facility] Nucleated RBC/100 WBC (Bld) [Ratio] 0 % 0-5 [facility] MCHC Auto (RBC) [Mass/Vol]Or dered By: Raoul Oliver on 06-24-2023 MCHC (RBC) [Mass/Vol] 32.5 g/dL 32-36 [facility] No Panel InformationOrdered By: Raoul Oliver on 06-24-2023 Estimated Creatinine Clearance Calc 49.63 ml/min [facility] Estimated GFR (MDRD) Amer 84 mL/min >60 [facility] Comment on above: GFR Calc Estimated GFR (MDRD) Non-Af Amer 69 mL/min >60 [facility] Comment on above: Non- GFR Calc Platelets bldOrdered By: Main Oliver on 06-24-2023 Platelets (Bld) [#/Vol] 249 10*3/uL 150-450 [facility] Serum or plasma calcium marvin urement (mass/volume)Ordered By: Raoul Oliver on 06-24-2023 Calcium [Mass/Vol] 8.3 mg/dL 8.5-10.1 [facility] Serum or plasma creatinine m easurement (mass/volume)Ordered By: Raoul Oliver on 06-24-2023 Creatinine [Mass/Vol] 1.11 mg/dL 0.70-1.30 [facility] Comment on above: The validity of the calculated GFR & GFRAA in patients over 70 years has not been determined. Clinical correlation is essential. Serum or plasma urea nitroge n measurement (mass/volume)Ordered By: Raoul Oliver on 06-24-2023 Urea nitrogen [Mass/Vol] 10 mg/dL 7-18 [facility] Thin prep Papanicolaou smear with manual screeningOrdered By: Raoul Oliver on 06-24-2023 Thin prep Papanicolaou smear with manual screening 3 5-15 [facility] Basophil percentageOrdered B y: Ethan Martinez on 06-23-2023 Basophil percentage 0 SEEN /hpf 0-5 [facility] Bilirubin Test strip Ql (U)O rdered By: Ethan Martinez on 06-23-2023 Bilirubin Ql (U) Negative Negative [facility] Ketones Test strip Ql (U)Ord ered By: Ethan Martinez on 06-23-2023 Ketones Ql (U) Negative Negative [facility] Mucus LM Ql (Urine sed)Order ed By: Ethan Martinez on 06-23-2023 Mucus Ql (Urine sed) 0 SEEN /hpf [facility] Nitrite Test strip Ql (U)Ord ered By: Ethan Martinez on 06-23-2023 Nitrite Ql (U) Negative Negative [facility] No Panel InformationOrdered By: Raoul Oliver on 06-23-2023 Thyroid Stimulating Hormone (TSH) 4.71 uIU/mL 0.358-3.74 [facility] No Panel InformationOrdered By: Ethan Martinez on 06-23-2023 Troponin I High Sensitivity 6 pg/mL 3.0-78.0 [facility] Comment on above: Please Note: New Doming[place] t Units and Gender Specific Reference Ranges. For more information see Policy Stat Procedure [place] High Sensitivity Troponin (TNIH) and attachments. Protein Test strip Ql (U)Ord ered By: Remus Michelle on 06-23-2023 Protein Ql (U) 15 mg/dl Negative [facility] Squamous epithelial cells de tection in urine sediment by light microscopyOrdered By: Remus Michelle on 06-23-2023 Epithelial cells.squamous LM Ql (Urine sed) 0-5 SEEN /hpf 0-5 [facility] Urine blood detectionOrdered By: Remus Michelle on 06-23-2023 RBC Ql (U) Negative Negative [facility] RBC Ql (U) 0 SEEN /hpf 0-5 [facility] Urine clarityOrdered By: Rem us Michelle on 06-23-2023 Clarity (U) Clear Clear [facility] Urine color determinationOrd ered By: Remus Martinez on 06-23-2023 Color (U) Yellow Yellow [facility] Urine glucose detectionOrder ed By: Remus Martinez on 06-23-2023 Glucose Ql (U) 100 mg/dl Normal [facility] Urine leukocyte esterase det ection by dipstickOrdered By: Remus Michelle on 06-23-2023 Leukocyte esterase Test strip Ql (U) Negative Negative [facility] Urine pHOrdered By: Ethan Romero gur on 06-23-2023 pH (U) 6.0 [pH] 5.0 - 8.0 [facility] Urine sediment bacteria coun t by microscopy (number/high power field)Ordered By: Ethan Martinez on 06-23-2023 Bacteria LM.HPF (Urine sed) [#/Area] 0 /[HPF] None Seen [facility] Urine specific gravity measu rementOrdered By: Remus Martinez on 06-23-2023 Specific gravity (U) [Rel density] 1.015 1.002-1.030 [facility] Urobilinogen Auto test strip Ql (U)Ordered By: Remus Michelle on 06-23-2023 Urobilinogen Ql (U) Normal mg/dl Normal [facility] CT CHEST WO IVCONon 11-25-19 [facility] US SCREENING FOR AAAon 11-15 [facility] LUNG VOLUMESon 09-13-2022 [facility] NITRIC OXIDE, EXHALEDon 02-2 [facility] SPIROMETRY - BASELINE AND PO ST DILATORon 09-13-2022 ERV BOX (L) 0.43 L [facility] AWN31-83% POST (L/S) 1.49 L/S [facility] EFF73-25% PRE (L/S) 2.39 L/S [facility] FEV1 PRE (L) 1.98 L [facility] FEV1/FVC POST (%) 78 % [facility] FEV1/FVC PRE (%) 84 % [facility] FEV1_POST (L) 1.84 L [facility] FRC Box (L) 1.89 L [facility] FVC POST (L) 2.35 L [facility] FVC PRE (L) 2.37 L [facility] IC BOX (L) 1.91 L [facility] PEF POST (L/S) 5.55 L/S [facility] PEF PRE (L/S) 5.58 L/S [facility] RV Box (L) 1.42 L [facility] RV/TLC Box (%) 39 % [facility] TLC Box (L) 3.68 L [facility] VC (L) BOX 2.40 L [facility] CT CHEST WO IVCONon 11-24-19 Radiology Result ACTION[address] Abnormal [facility] XR Chest PA and Lateralon IMPRESSION: Left upper lobe nodular opacity could be infectious. Lungs are otherwise clear. Recommend follow-up with nonemergent chest CT. Art Therapy Specialist: [facility] Transcribe Date/Time: Aug 13 2021 4:33P Dictated by : POORNIMA CANAS MD This examination was interpreted and the report reviewed and electronically signed by: POORNIMA CANAS MD on Aug 13 2021 4:35PM [facility] DIVISION OF RADIOLOGY * * *Final Report* [...] No pulmonary edema. DIVISION OF RADIOLOGY Provider, [facility] - 08/13/2021 * * *Final [...] clear. Recommend follow-up with nonemergent chest CT. Art Therapy Specialist: [facility] Transcribe Date/Time: Aug 13 2021 4:33P Dictated by : POORNIMA CANAS MD This examination was interpreted and the report reviewed and electronically signed by: POORNIMA CANAS MD on Aug 13 2021 4:35PM [facility] Radiology Study observation (narrative) [facility] XR Chest PA and LateralOrder ed By: [facility] Provider on 08-13-2021 [facility] Vital Signs Date Time Vital Sign Value Performing Clinician Facility 05-02-2025 14:43-0400 Body height 162.[address] Usman Patel MD Work Phone: [facility] 10-20-2023 14:22-0400 Body weight 91.35 kg Usman Patel MD Work Phone: [facility] 10-20-2023 14:22-0400 Diastolic blood pressure 74 mm[Hg] Usman Patel MD Work Phone: [facility] 10-20-2023 14:22-0400 Heart rate 82 /min Usman Patel MD Work Phone: [facility] 10-20-2023 14:22-0400 Respiratory rate 18 /min Usman Patel MD Work Phone: [facility] 10-20-2023 14:22-0400 Systolic blood pressure 122 mm[Hg] Usman Patel MD Work Phone: [facility] 08-28-2023 10:36-0500 Body weight 91.63 kg Aiden Mccrary MD Work Phone: [facility] 08-28-2023 10:36-0500 Diastolic blood pressure 64 mm[Hg] Aiden Mccrary MD Work Phone: [facility] 08-28-2023 10:36-0500 Heart rate 71 /min Aiden Mccrary MD Work Phone: [facility] 08-28-2023 10:36-0500 Respiratory rate 16 /min Aiden Mccrary MD Work Phone: [facility] 08-28-2023 10:36-0500 SaO2% (BldA) [Mass fraction] 100 % Aiden Mccrary MD Work Phone: [facility] 08-28-2023 10:36-0500 Systolic blood pressure 151 mm[Hg] Aiden Mccrary MD Work Phone: [facility] 06-25-2023 13:23-0500 Heart rate 78 /min Dr. Usman Patel Work Phone: [facility] 06-25-2023 13:23-0500 Respiratory rate 18 /min Dr. Usman Patel Work Phone: [facility] 06-25-2023 11:36-0500 Body temperature 98 [degF] Dr. Usman Patel Work Phone: [facility] 06-25-2023 11:36-0500 Diastolic blood pressure 61 mm[Hg] Dr. Usman Patel Work Phone: [facility] 06-25-2023 11:36-0500 SaO2% (BldA) [Mass fraction] 96 % Dr. Usman Patel Work Phone: [facility] 06-25-2023 11:36-0500 Systolic blood pressure 113 mm[Hg] Dr. Usman Patel Work Phone: [facility] 06-23-2023 20:06-0500 Body height 162.[address] Usman Patel Work Phone: [facility] 06-23-2023 20:06-0500 Body mass index (BMI) [Ratio] 34.2 kg/m2 Dr. Usman Patel Work Phone: [facility] 06-23-2023 20:06-0500 Body weight 90.[address] Usman Patel Work Phone: [facility] 05-17-2023 13:59-0400 Body weight 90.27 kg Shayna Frias CHANNEL MARKETING COORDINATOR.MECHANICAL DESIGN ENGINEER FACILITIES Work Phone: [facility] 05-17-2023 13:59-0400 Diastolic blood pressure 76 mm[Hg] Shayna Frias CHANNEL MARKETING COORDINATOR.MECHANICAL DESIGN ENGINEER FACILITIES Work Phone: [facility] 05-17-2023 13:59-0400 Heart rate 88 /min Shayna Frias CHANNEL MARKETING COORDINATOR.MECHANICAL DESIGN ENGINEER FACILITIES Work Phone: [facility] 05-17-2023 13:59-0400 Respiratory rate 16 /min Shayna Frias CHANNEL MARKETING COORDINATOR.MECHANICAL DESIGN ENGINEER FACILITIES Work Phone: [facility] 05-17-2023 13:59-0400 SaO2% (BldA) [Mass fraction] 98 % Shayna Frias CHANNEL MARKETING COORDINATOR.MECHANICAL DESIGN ENGINEER FACILITIES Work Phone: [facility] 05-17-2023 13:59-0400 Systolic blood pressure 110 mm[Hg] Shayna Frias CHANNEL MARKETING COORDINATOR.MECHANICAL DESIGN ENGINEER FACILITIES Work Phone: [facility] 02-24-2023 19:04-0400 Body mass index (BMI) [Ratio] 34.2 kg/m2 [facility] 02-24-2023 19:04-0400 Body weight 93.3 kg [facility] 02-24-2023 13:55-0400 Body height 165.1 cm [facility] 02-24-2023 13:55-0400 Body temperature 97.1 [degF] [facility] 02-24-2023 13:55-0400 Diastolic blood pressure 80 mm[Hg] [facility] 02-24-2023 13:55-0400 Heart rate 72 /min [facility] 02-24-2023 13:55-0400 Respiratory rate 18 /min [facility] 02-24-2023 13:55-0400 SaO2% (BldA) [Mass fraction] 99 % [facility] 02-24-2023 13:55-0400 Systolic blood pressure 159 mm[Hg] [facility] 09-13-2022 13:21-0500 Body height 160 cm Pulm Wstr Work Phone: [facility] 09-13-2022 13:21-0500 Body weight 92.08 kg Pulm Wstr Work Phone: [facility] 09-13-2022 13:21-0500 Heart rate 74 /min Pulm Wstr Work Phone: [facility] 09-13-2022 13:21-0500 Respiratory rate 16 /min Pulm Wstr Work Phone: [facility] 09-13-2022 13:21-0500 SaO2% (BldA) [Mass fraction] 96 % Pulm Wstr Work Phone: [facility] 09-08-2022 14:01-0500 Body temperature 98.01 [degF] Shayna Tannhof CHANNEL MARKETING COORDINATOR.MECHANICAL DESIGN ENGINEER FACILITIES Work Phone: [facility] 09-08-2022 14:01-0500 Body weight 93.44 kg Shayna Tannhof CHANNEL MARKETING COORDINATOR.MECHANICAL DESIGN ENGINEER FACILITIES Work Phone: [facility] 09-08-2022 14:01-0500 Diastolic blood pressure 74 mm[Hg] Shayna Tannhof CHANNEL MARKETING COORDINATOR.MECHANICAL DESIGN ENGINEER FACILITIES Work Phone: [facility] 09-08-2022 14:01-0500 Heart rate 104 /min Shayna Tannhof CHANNEL MARKETING COORDINATOR.MECHANICAL DESIGN ENGINEER FACILITIES Work Phone: [facility] 09-08-2022 14:01-0500 Respiratory rate 16 /min Shayna Tannhof CHANNEL MARKETING COORDINATOR.MECHANICAL DESIGN ENGINEER FACILITIES Work Phone: [facility] 09-08-2022 14:01-0500 SaO2% (BldA) [Mass fraction] 96 % Shayna Tannhof CHANNEL MARKETING COORDINATOR.MECHANICAL DESIGN ENGINEER FACILITIES Work Phone: [facility] 09-08-2022 14:01-0500 Systolic blood pressure 126 mm[Hg] Shayna Tannhof CHANNEL MARKETING COORDINATOR.MECHANICAL DESIGN ENGINEER FACILITIES Work Phone: [facility] 08-24-2022 16:11-0500 Body temperature 98.1 [degF] Shayna Tannhof CHANNEL MARKETING COORDINATOR.MECHANICAL DESIGN ENGINEER FACILITIES Work Phone: [facility] 08-24-2022 16:11-0500 Body weight 90.72 kg Shayna Tannhof CHANNEL MARKETING COORDINATOR.MECHANICAL DESIGN ENGINEER FACILITIES Work Phone: [facility] 08-24-2022 16:11-0500 Diastolic blood pressure 90 mm[Hg] Shayna Tannhof CHANNEL MARKETING COORDINATOR.MECHANICAL DESIGN ENGINEER FACILITIES Work Phone: [facility] 08-24-2022 16:11-0500 Heart rate 99 /min Shayna Tannhof CHANNEL MARKETING COORDINATOR.MECHANICAL DESIGN ENGINEER FACILITIES Work Phone: [facility] 08-24-2022 16:11-0500 Respiratory rate 16 /min Shayna Tannhof CHANNEL MARKETING COORDINATOR.MECHANICAL DESIGN ENGINEER FACILITIES Work Phone: [facility] 08-24-2022 16:11-0500 SaO2% (BldA) [Mass fraction] 97 % Shayna Tannhof CHANNEL MARKETING COORDINATOR.MECHANICAL DESIGN ENGINEER FACILITIES Work Phone: [facility] 08-24-2022 16:11-0500 Systolic blood pressure 138 mm[Hg] Shayna Tannhof CHANNEL MARKETING COORDINATOR.MECHANICAL DESIGN ENGINEER FACILITIES Work Phone: [facility] 05-17-2022 14:44-0400 Body weight 92.9 kg Usman Patel MD Work Phone: [facility] 05-17-2022 14:44-0400 Diastolic blood pressure 90 mm[Hg] Usman Patel MD Work Phone: [facility] 05-17-2022 14:44-0400 Heart rate 74 /min Usman Patel MD Work Phone: [facility] 05-17-2022 14:44-0400 Respiratory rate 16 /min Usman Patel MD Work Phone: [facility] 05-17-2022 [id number] Systolic blood pressure 154 mm[Hg] Usman Patel MD Work Phone: [facility] Encounters Encounter Date Encounter Type Care Provider Facility Start: 05-13-2025 ambulatory Micaela Smith cility:[facility] Start: 04-22-2025 ambulatory Usman Patel Facilit y:[facility] Start: 04-22-2025 Registered Referred Jolly Macdonald DOCKWORKER-C [facility] Start: 04-01-2025 ambulatory Usman Patel Facilit y:[facility] Start: 04-01-2025 Registered Referred Jolly Macdonald DOCKWORKER-C -[facility] Start: 03-28-2025 End: 03-28-[address] Usman Patel MD Work Phone: [facility] Start: 03-28-2025 End: 03-28-2025 Patient encounter procedure Jolly Macdonald DOCKWORKER-[facility] Work Phone: Start: 03-18-2025 ambulatory Usman Wallace y:[facility] Start: 03-18-2025 Registered Referred Jolly Macdonald DOCKWORKER-C -[facility] Start: 02-18-2025 End: 02-18-[address] Usman Patel MD Work Phone: [facility] Start: 02-18-2025 End: 02-18-[address] Micaela Holder MD -[facility] Work Phone: Start: 02-18-2025 Registered Referred Micaela Holder MD -[facility] Start: 02-18-2025 End: 02-18-2025 ambulatory Usman Patel Facility:[facility] Start: 02-06-2025 End: 02-06-[address] Usman Patel MD Work Phone: [facility] Start: 02-06-2025 End: 02-06-2025 Patient encounter procedure Poornima LOTT -[facility] Work Phone: Start: 01-14-2025 End: 01-14-[address] Usman Patel MD Work Phone: [facility] Start: 01-14-2025 End: 01-14-2025 Departed Referred Jolly Macdonald DOCKWORKER-[facility] Start: 01-14-2025 Registered Referred Jolly Macdonald DOCKWORKER-[facility] Start: 01-14-2025 End: 01-14-2025 ambulatory Usman Patel Facility:[facility] Start: 01-07-2025 ambulatory Usman Wallace y:[facility] Start: 01-07-2025 Registered Referred Micaela Holder MD -[facility] Start: 12-24-2024 End: 12-24-[address] Usman Patel MD Work Phone: [facility] Start: 12-24-2024 End: 12-24-[address] Micaela Holder MD -[facility] Work Phone: Start: 12-17-2024 ambulatory Usman Wallace y:[facility] Start: 12-17-2024 Registered Referred Jolly Macdonald NP-[facility] Start: 11-26-2024 End: 11-26-[address] Usman Paetl MD Work Phone: [facility] Work Phone: Start: 11-26-2024 End: 11-26-2024 Departed Referred Micaela Holder MD -[facility] Start: 11-26-2024 End: 11-26-2024 ambulatory Usman Patel Facility:[facility] Start: 11-19-2024 End: 11-19-[address] Usman Patel MD Work Phone: [facility] Work Phone: Start: 11-19-2024 End: 11-19-2024 Departed Referred Jolly Macdonald DOCKWORKER-C -[facility] Start: 11-19-2024 Registered Referred Jolly Macdonald DOCKWORKER-[facility] -[facility] Start: 11-18-2024 End: 11-19-[address] Usman Patel MD Work Phone: [facility] Start: 11-18-2024 End: 11-18-2024 Patient encounter procedure Jolly Macdonald DOCKWORKER-C -[facility] Work Phone: Start: 10-15-2024 End: 10-15-[address] Usman Patel MD Work Phone: [facility] Work Phone: Start: 10-15-2024 End: 10-15-[address] Micaela Holder MD -[facility] Work Phone: Start: 10-15-2024 End: 10-15-2024 Departed Referred oJlly Macdonald DOCKWORKER-C -[facility] Start: 10-15-2024 Registered Referred Jolly Macdonald DOCKWORKER-C -[facility] Start: 10-15-2024 End: 10-15-2024 ambulatory Usman Patel Facility:[facility] Start: 10-04-2024 End: 10-04-[address] Usman Patel MD Work Phone: [facility] Work Phone: Start: 10-04-2024 End: 10-04-2024 Departed Referred Micaela Holder MD -[facility] Start: 10-04-2024 Registered Referred Micaela Holder MD -[facility] Start: 10-04-2024 End: 10-04-2024 ambulatory Usman Patel Facility:[facility] Start: 09-17-2024 End: 09-17-[address] Usman Patel MD Work Phone: [facility] Work Phone: Start: 09-17-2024 End: 09-17-2024 [facility]ed [facility] Start: 09-17-2024 End: 09-17-2024 ambulatory Micaela MÉNDEZ Facility:[facility] Start: 09-03-2024 ambulatory Usman Patel Facilit y:[facility] Start: 09-03-2024 [facility]istered [facility] Start: 08-20-2024 ambulatory Usman Evanslalytrevon Facilit y:[facility] Start: 08-20-2024 Registered Referred Micaela Holder MD [facility] Start: 07-23-2024 ambulatory Micaela MÉNDEZ Fa cility:[facility] Start: 07-23-2024 Registered [facility] Start: 07-02-2024 End: 07-02-2024 Telephone encounter Usman Patel MD Work Phone: [facility] Comment on above: Forms (90 day order for [facility]) Start: 06-18-2024 End: 06-18-2024 [facility] Start: 05-09-2024 End: 05-10-2024 Telephone encounter Usman Patel MD Work Phone: [facility] Comment on above: Forms ([facility]) Start: 03-05-2024 End: 03-05-2024 Refill Usman Patel MD Work Phone: [facility] Comment on above: Med Change Request Start: 03-04-2024 End: 03-04-2024 Refill Usman Patel MD Work Phone: [facility] [place] Comment on above: Refill Request Start: 02-06-2024 Telephone encounter Usman mccarthy MD Work Phone: [facility] Comment on above: Forms ([facility] 90 day order) Start: 10-20-2023 End: 10-20-2023 ambulatory USMAN PATEL Facility:[facility] Start: 10-20-2023 End: 10-20-2023 Patient encounter procedure Usman Patel MD Work Phone: [facility] [place] Comment on above: Hypothyroidism, acqu ired (Primary Dx); Balance problem; Dizziness; Generalized convulsive epilepsy (HCC); COPD with chronic bronchitis (HCC); Cerebral palsy, unspecified type (HCC) Start: 10-19-2023 Telephone encounter Usman mccarthy MD Work Phone: [facility] [place] Comment on above: Forms (Orders from [facility] - day) Start: 09-19-2023 End: 09-19-2023 ambulatory AIDEN MCCRARY Facility:[facility] Start: 09-05-2023 End: 09-05-2023 ambulatory AIDEN MCCRARY Facility:[facility] Start: 08-28-2023 End: 08-28-2023 ambulatory [facility] Facility:[facility] Start: 08-28-2023 End: 08-28-2023 Patient encounter procedure Aiden Mccrary MD Work Phone: Cardiology Comment on above: Syncope and collapse ; Vasovagal syncope; Palpitations Start: 08-15-2023 End: 08-15-2023 ambulatory [facility] Facility:[facility] Start: 08-08-2023 End: 08-08-2023 ambulatory USMAN Putnam [facility] Facility:[facility] Start: 07-19-2023 End: 07-19-2023 ambulatory [facility] Facility:[facility] Start: 07-19-2023 End: 07-19-2023 ambulatory [facility] Facility:[facility] Start: 07-14-2023 End: 07-15-2023 ambulatory USMAN PATEL Facility:[facility] Start: 06-27-2023 Patient Outreach Usman zuñiga MD Work Phone: [facility] [place] Comment on above: Transition Of Care Start: 06-25-2023 Non-patient / Non-visit [facility]. Allison [facility] Work [facility]: Start: 06-24-2023 Non-patient / Non-visit Dr. Allison Patel Work Phone: [facility] Work Phone: Start: 06-23-2023 Non-patient / Non-visit Dr. Allison Patel Work Phone: [facility] Work Phone: Start: 06-23-2023 End: 06-25-2023 Evaluation and management of inpatient Dr. Usman Patel Work Phone: [facility]-Medical Surgical 3 Work Phone: Start: 06-23-2023 End: 06-25-[address] Usman Patel Work Phone: [facility] Work Phone: Start: 06-23-2023 Telephone encounter Usman mccarthy MD Work Phone: [facility] Comment on above: Patient Update Start: 06-01-2023 Refill Usman humphries MD Work Phone: [facility] Comment on above: Refill Request Start: 05-17-2023 End: 05-17-2023 Patient encounter procedure Shayna Frias APRN.MECHANICAL DESIGN ENGINEER FACILITIES Work Phone: [facility] Comment on above: Generalized convulsi ve epilepsy (HCC) (Primary Dx); Imbalance; COPD with chronic bronchitis; Hypothyroidism, acquired; Cerebral palsy, unspecified type (HCC); Prostate cancer screening; Dyslipidemia, goal LDL below 100 Start: 02-27-2023 Telephone encounter Usman mccarthy MD Work Phone: [facility] Comment on above: Patient Update (Fall ) Start: 02-24-2023 End: 02-24-2023 Emergency department patient visit [facility]-Emergency Department Work Phone: Start: 11-24-2022 End: 11-24-2022 Subsequent hospital visit by physician [facility] (I-Stat) Work Phone: Cat Scan Comment on above: Lung nodules [R91.8] Start: 11-15-2022 End: 11-15-2022 Subsequent hospital visit by physician [facility] Work Phone: Radiology Comment on above: Screening for AAA (a bdominal aortic aneurysm) [Z13.6] Start: 09-19-2022 Telephone encounter Shayna mahoney CHANNEL MARKETING COORDINATOR.MECHANICAL DESIGN ENGINEER FACILITIES Work Phone: [facility] [place] Comment on above: Results (PFT's) Start: 09-13-2022 End: 09-13-2022 ambulatory Pulm Lab [facility] Work Phone: PULM [facility] Comment on above: Spirometry Start: 09-13-2022 End: 09-13-2022 Patient encounter procedure Pulm [facility] Work Phone: [facility] Start: 09-08-2022 End: 09-08-2022 Patient encounter procedure Shayna Frias APRN.MECHANICAL DESIGN ENGINEER FACILITIES Work Phone: [facility] [place] Comment on above: Cough, unspecified t ype (Primary Dx); SOB (shortness of breath); COPD with chronic bronchitis (HCC) Start: 09-07-2022 Telephone encounter Usman mccarthy MD Work Phone: [facility] [place] Comment on above: Appointment Start: 08-25-2022 Telephone encounter Shayna mahoney CHANNEL MARKETING COORDINATOR.MECHANICAL DESIGN ENGINEER FACILITIES Work Phone: [facility] [place] Comment on above: Results (COVID/flu.) Start: 08-24-2022 End: 08-24-2022 Patient encounter procedure Shayna Frias APRN.MECHANICAL DESIGN ENGINEER FACILITIES Work Phone: [facility] [place] Comment on above: Sinobronchitis (Prim uvaldo Dx) Start: 07-12-2022 Telephone encounter Usman mccarthy MD Work Phone: [facility] [place] Comment on above: [facility] Start: 06-10-2022 Telephone encounter Usman mccarthy MD Work Phone: [facility] [place] Comment on above: Results Start: 05-24-2022 Telephone encounter Fritz Ryan lam KOWALSKIMECHANICAL DESIGN ENGINEER FACILITIES Work Phone: [facility] Comment on above: Results Start: 05-17-2022 End: 05-17-2022 Patient encounter procedure Usman Patel MD Work Phone: [facility] Comment on above: Hypothyroidism, acqu ired (Primary Dx); Need for influenza vaccination; Need for COVID-19 vaccine; Generalized convulsive epilepsy (HCC); Imbalance; COPD with chronic bronchitis (HCC); Obesity, Class II, BMI 35-39.9; Elevated PSA; Cerebral palsy, unspecified type (HCC) Start: 12-08-2021 ambulatory Lora chauhan RN Work Phone: [employer] Comment on above: [employer] [facility] Monitor ing (Enrollment Outreach) Start: 11-23-2021 End: 11-23-2021 Subsequent hospital visit by physician [facility] (I-Stat) Work Phone: Cat Scan Comment on above: Lung nodules [R91.8] Start: 11-12-2021 Telephone encounter Usman mccarthy MD Work Phone: [facility] Comment on above: Results Start: 08-13-2021 End: 08-13-2021 Subsequent hospital visit by physician Xr [facility] [place] Work Phone: Radiology Comment on above: Suspected [...] 09-13-2022 Nitric oxide gas determination Shayna Frias CHANNEL MARKETING COORDINATOR.MECHANICAL DESIGN ENGINEER FACILITIES Work Phone: Start: 09-13-2022 Brncdilat rspse spmt ry pre&post-brncdilat admn Shayna Frias CHANNEL MARKETING COORDINATOR.MECHANICAL DESIGN ENGINEER FACILITIES Work Phone: Start: 05-17-2022 INFLUENZA SEASONAL QUADRIVALENT HIGH DOSE AGE 65+ Usman Patel MD Work Phone: Start: 05-17-2022 [employer] COVI D-19 BIVALENT BOOSTER VACCINE, AGE 12+ YR Usman Patel MD Work Phone: Start: 11-23-2021 Ct thorax w/o contra st material Usman Patel MD Work Phone: Start: 08-13-2021 Radiologic exam ches t 2 views Brenda Oneal CHANNEL MARKETING COORDINATOR.MECHANICAL DESIGN ENGINEER FACILITIES Work Phone: Start: 05-10-2021 Adult depression scr eening assessment Usman Patel MD Work Phone: Start: 03-03-2020 Lipid 1996 panel - S arabella or Plasma Shayna Frias CHANNEL MARKETING COORDINATOR.MECHANICAL DESIGN ENGINEER FACILITIES Work Phone: Start: 02-01-2016 Colonoscopy Usman woodruff MD Work Phone: Plan of Treatment Date Care Activity Detail Author Start: 11-14-2032 Urine microalbumin profile [facility] Start: 06-05-2028 Lipid 1996 panel - S arabella or Plasma Lipid Screening [facility] Start: 06-05-2028 Lipid panel Lipid Screening [facility] Start: 10-19-2026 Diabetes Screening Diabetes Screenin g [facility] Start: 06-05-2026 Diabetes Screening Diabetes Screenin [facility] Start: 01-31-2026 Colonoscopy COLONOSCOPY [facility] Start: 01-31-2026 COLORECTAL CANCER SCREENING COLORECTAL CANCER SCREENING [facility] Start: 01-31-2026 Screening for malign ant neoplasm of colon [facility] Start: 05-13-2025 Registered Referred Registered Refer rosas [facility] Start: 03-03-2025 Lipid 1996 panel - S arabella or Plasma Lipid Screening [facility] Start: 03-03-2025 LIPID SCREEN LIPID SCREEN [facility] Start: 11-08-2024 DIABETES SCREEN DIABETES SCREEN [facility] Start: 11-08-2024 Diabetes Screening Diabetes Screenin g [facility] Start: 10-19-2024 Annual PCP Team Medical Device Sales Consultant main Disease Visit Annual PCP Team Chronic Disease Visit [facility] Start: 10-19-2024 Covid-19 Vaccine ( season) Covid-19 Vaccine () [facility] Comment on above: Postponed from 03/17 (Declined at this time) Start: 07-08-2024 End: 07-08-2024 Patient encounter procedure 07/08/2024 3:20 PM EST Office Visit Cardiology [address] [place] [id number] Maria Guadalupe Shin MD [address], [address] [place], [place] [id number] follow up Cardiology Comment on above: follow up Start: 07-04-2024 Annual PCP Team Medical Device Sales Consultant main Disease Visit Annual PCP Team Chronic Disease Visit [facility] Start: 05-17-2024 Annual PCP Team Medical Device Sales Consultant main Disease Visit Annual PCP Team Chronic Disease Visit [facility] Start: 04-19-2024 End: 04-19-2024 Patient encounter procedure 04/19/2024 2:00 PM EDT Office Visit Family [facility] [place] [address] [place] [id number] Usman Patel MD [address] [place], [place] [id number] 6 month follow up Family [facility] Comment on above: 6 month follow up Start: 03-17-2024 Covid-19 Vaccine ( season) Covid-19 Vaccine () [facility] Start: 03-17-2024 Influenza vaccination Influenza Vacc ine (#1) [facility] Start: 03-13-2024 End: 03-13-2024 Patient encounter procedure 03/13/2024 3:30 PM EDT Office Visit Neurology [address] [place] [address] Temitope Lara PA-C [address] [place] [address] 3 month follow up Neurology Comment on above: 3 month follow up Start: 11-15-2023 ANNUAL PCP TEAM DATA MANAGEMENT ANALYST MAIN DISEASE VISIT ANNUAL PCP TEAM CHRONIC DISEASE VISIT [facility] Start: 09-08-2023 ANNUAL PCP TEAM DATA MANAGEMENT ANALYST MAIN DISEASE VISIT ANNUAL PCP TEAM CHRONIC DISEASE VISIT [facility] Start: 08-24-2023 ANNUAL PCP TEAM DATA MANAGEMENT ANALYST MAIN DISEASE VISIT ANNUAL PCP TEAM CHRONIC DISEASE VISIT [facility] Start: 07-17-2023 Advance Directive Discussion Advance Directive Discussion [facility] Start: 07-17-2023 Behavioral Health Screening Behavioral Health Screening [facility] Start: 07-17-2023 Depression Assessment Depression Ass essment [facility] Start: 06-25-2023 Patient discharge [facility] Start: 06-23-2023 End: 06-23-2023 Following clinical pathway protocol [facility] Start: 06-23-2023 Ambulation without limitation [facility] Start: 06-23-2023 Assessment of risk o f venous thromboembolism [facility] Start: 06-23-2023 Insertion of cathete r into peripheral vein [facility] Start: 06-23-2023 Providing care accor ding to standard [facility] Start: 06-23-2023 Referral to occupati onal therapist [facility] Start: 06-23-2023 Referral to service [facility] Start: 06-23-2023 [facility] Start: 06-23-2023 Admission procedure [facility] Start: 06-23-2023 Inhalation therapy procedure [facility] Start: 05-17-2023 ANNUAL PCP TEAM DATA MANAGEMENT ANALYST MAIN DISEASE VISIT ANNUAL PCP TEAM CHRONIC DISEASE VISIT [facility] Start: 05-17-2023 End: 08-16-2023 carBAMazepine [Mass/volume] in Serum or Plasma CARBAMAZEPI/TEGRETOL Lab Routine Generalized convulsive epilepsy (HCC) Expected: 05/17/2023, Expires: 08/16/2023 [facility] Work Phone: Comment on above: Expected: 05/17/2023 , Expires: 08/16/2023 Start: 05-17-2023 End: 08-16-2023 CBC W Auto Differential panel - Blood CBC + DIFF Lab Routine Generalized convulsive epilepsy (HCC) Expected: 05/17/2023, Expires: 08/16/2023 [facility] Work Phone: Comment on above: Expected: 05/17/2023 , Expires: 08/16/2023 Start: 05-17-2023 End: 08-16-2023 Comprehensive metabolic 2000 panel - Serum or Plasma COMP METABOLIC PANEL Lab Routine Generalized convulsive epilepsy (HCC) Expected: 05/17/2023, Expires: 08/16/2023 [facility] Work Phone: Comment on above: Expected: 05/17/2023 , Expires: 08/16/2023 Start: 05-17-2023 End: 08-16-2023 levETIRAcetam [Mass/volume] in Serum or Plasma LEVETIRACETAM Lab Routine Generalized convulsive epilepsy (HCC) Expected: 05/17/2023, Expires: 08/16/2023 [facility] Work Phone: Comment on above: Expected: 05/17/2023 , Expires: 08/16/2023 Start: 05-17-2023 End: 08-16-2023 Lipid 1996 panel - Serum or Plasma LIPID PANEL BASIC Lab Routine Dyslipidemia, goal LDL below 100 Expected: 05/17/2023, Expires: 08/16/2023 [facility] Work Phone: Comment on above: Expected: 05/17/2023 , Expires: 08/16/2023 Start: 05-17-2023 End: 08-16-2023 PSA/PROSTSPECAG SCRN PSA/PROSTSPECAG SCRN Lab Routine Prostate cancer screening Expected: 05/17/2023, Expires: 08/16/2023 [facility] Work Phone: Comment on above: Expected: 05/17/2023 , Expires: 08/16/2023 Start: 05-17-2023 End: 08-16-2023 Thyrotropin [Units/volume] in Serum or Plasma TSH BLD Lab Routine Hypothyroidism, acquired Expected: 05/17/2023, Expires: 08/16/2023 [facility] Work Phone: Comment on above: Expected: 05/17/2023 , Expires: 08/16/2023 Start: 03-17-2023 Covid-19 Vaccine () Covid-19 Vaccine () [facility] Start: 03-17-2023 Influenza vaccination [facility] Start: 11-23-2022 Influenza vaccination LUNG CANCER SC REENING [facility] Start: 11-14-2022 End: 01-14-2023 carBAMazepine [Mass/volume] in Serum or Plasma CARBAMAZEPI/TEGRETOL Lab Routine Generalized convulsive epilepsy (HCC) Expected: 11/14/2022 (Approximate), Expires: 01/14/2023 [facility] Work Phone: Comment on above: Expected: 11/14/2022 (Approximate), Expires: 01/14/2023 Start: 11-14-2022 End: 01-14-2023 Comprehensive metabolic 2000 panel - Serum or Plasma COMP METABOLIC PANEL Lab Routine Obesity, Class II, BMI 35-39.9 Expected: 11/14/2022 (Approximate), Expires: 01/14/2023 [facility] Work Phone: Comment on above: Expected: 11/14/2022 (Approximate), Expires: 01/14/2023 Start: 11-14-2022 End: 01-14-2023 levETIRAcetam [Mass/volume] in Serum or Plasma LEVETIRACETAM Lab Routine Generalized convulsive epilepsy (HCC) Expected: 11/14/2022 (Approximate), Expires: 01/14/2023 [facility] Work Phone: Comment on above: Expected: 11/14/2022 (Approximate), Expires: 01/14/2023 Start: 11-14-2022 End: 01-14-2023 Lipid 1996 panel - Serum or Plasma LIPID PANEL BASIC Lab Routine Obesity, Class II, BMI 35-39.9 Expected: 11/14/2022 (Approximate), Expires: 01/14/2023 [facility] Work Phone: Comment on above: Expected: 11/14/2022 (Approximate), Expires: 01/14/2023 Start: 11-14-2022 End: 01-14-2023 Thyrotropin [Units/volume] in Serum or Plasma TSH BLD Lab Routine Hypothyroidism, acquired Expected: 11/14/2022 (Approximate), Expires: 01/14/2023 [facility] Work Phone: Comment on above: Expected: 11/14/2022 (Approximate), Expires: 01/14/2023 Start: 11-08-2022 ANNUAL PCP TEAM DATA MANAGEMENT ANALYST MAIN DISEASE VISIT ANNUAL PCP TEAM CHRONIC DISEASE VISIT [facility] Start: 09-14-2022 COVID-19 VACCINE (5 - Moderna series) COVID-19 VACCINE (5 - Moderna series) [facility] Start: 09-08-2022 End: 10-08-2023 LUNG VOLUMES LUNG VOLUMES PFT Routine SOB (shortness of breath) COPD with chronic bronchitis (HCC) Expected: 09/08/2022, Expires: 10/08/2023 [facility] Work Phone: Comment on above: Expected: 09/08/2022 , Expires: 10/08/2023 Start: 07-24-2022 End: 09-23-2022 Thyrotropin [Units/volume] in Serum or Plasma TSH BLD Lab Routine Hypothyroidism, acquired Expected: 07/24/2022 (Approximate), Expires: 09/23/2022 [facility] Work Phone: Comment on above: Expected: 07/24/2022 (Approximate), Expires: 09/23/2022 Start: 07-17-2022 ADVANCE DIRECTIVE DISCUSSION ADVANCE DIRECTIVE DISCUSSION [facility] Start: 07-17-2022 DEPRESSION ASSESSMENT DEPRESSION ASS ESSMENT [facility] Start: 05-17-2022 End: 07-17-2022 Prostate specific Ag [Mass/volume] in Serum or Plasma [facility] Work Phone: Comment on above: Expected: 05/17/2022 , Expires: 07/17/2022 Start: 05-17-2022 End: 07-17-2022 Thyrotropin [Units/volume] in Serum or Plasma [facility] Work Phone: Comment on above: Expected: 05/17/2022 , Expires: 07/17/2022 Start: 05-10-2022 Adult depression scr eening assessment DEPRESSION SCREENING [facility] Start: 11-30-2021 COVID-19 VACCINE (4 - Booster for Moderna series) COVID-19 VACCINE (4 - Booster for Moderna series) [facility] Start: 07-17-2021 DEPRESSION ASSESSMENT DEPRESSION ASS ESSMENT [facility] Start: 2010 RSV Vaccine (1 - 1-d ose 60+ series) RSV Vaccine (1 - 1-dose 60+ series) [facility] Start: 2010 RSV Vaccine (1 - Ris k 60-74 years 1-dose series) RSV Vaccine (1 - Risk 60-74 years 1-dose series) [facility] Start: 2005 Influenza vaccination LUNG CANCER SC REENING [facility] Start: 2000 SHINGRIX VACCINE (1 of 2) DUMONT GRIX VACCINE (1 of 2) [facility] Start: 1995 COLOGUARD (FIT-DNA) COLOGUARD (FIT-D NA) [facility] Start: [address] COLONOGRAPHY [facility] Start: 1995 FECAL OCCULT BLOOD FECAL OCCULT BLOO D [facility] Start: 1995 Screening for malign ant neoplasm of colon [facility] Start: [address] [facility] Start: 1980 Zoledronic acid therapy ALPHA- 1 ANTITRYPSIN DEFICIENCY SCREENING [facility] Start: 1969 Urine microalbumin profile DTAP,TDAP ,TD (1 - Tdap) [facility] Start: 1968 Anxiety Screening Anxiety Screening [facility] Start: 1968 Depression Screening Depression Scre ening [facility] Start: 1956 PNEUMOCOCCAL: 65+ (1 - PCV) PNEUMOCOCCAL: 65+ (1 - PCV) [facility] Start: 1950 ABDOMINAL AORTIC ANE URYSM SCREENING ABDOMINAL AORTIC ANEURYSM SCREENING [facility] End: 08-28-2024 Echocardiography ECHO Cardiology Routine Syncope and collapse Palpitations 1 Occurrences starting 08/28/2023 until 08/28/2024 [facility] Work Phone: Comment on above: 1 Occurrences starti ng 08/28/2023 until 08/28/2024 Influenza virus A an d B RNA and SARS-CoV-2 (COVID-19) N gene panel - Respiratory specimen by JOY with probe detection COVID WITH FLUA+B, ROUTINE Microbiology Routine Sinobronchitis Ordered: 08/24/2022 [facility] Work Phone: Comment on above: Ordered: 08/24/2022 End: 10-08-2023 NITRIC OXIDE, EXHALED NITRIC OXIDE, EXHALED PFT Routine SOB (shortness of breath) COPD with chronic bronchitis (HCC) 1 Occurrences starting 09/08/2022 until 10/08/2023 [facility] Work Phone: Comment on above: 1 Occurrences starti ng 09/08/2022 until 10/08/2023 OUTSIDE VENDOR CARDI AC OUTPATIENT EXTENDED RHYTHM RECORDING (WITHOUT TELEMETRY) OUTSIDE VENDOR CARDIAC OUTPATIENT EXTENDED RHYTHM RECORDING (WITHOUT TELEMETRY) Holter Routine Syncope and collapse Palpitations Ordered: 08/28/2023 [facility] Work Phone: Comment on above: Ordered: 08/28/2023 Patient Education ED Fracture, Foot [facility] Work Phone: Patient referral [facility] Work Phone: End: 10-08-2023 SPIROMETRY - BASELINE AND POST DILATOR SPIROMETRY - BASELINE AND POST DILATOR PFT Routine SOB (shortness of breath) COPD with chronic bronchitis (HCC) 1 Occurrences starting 09/08/2022 until 10/08/2023 [facility] Work Phone: Comment on above: 1 Occurrences starti ng 09/08/2022 until 10/08/2023 End: 08-28-2024 US Carotid arteries - bilateral US CAROTID ARTERIES [facility] Routine Syncope and collapse 1 Occurrences starting 08/28/2023 until 08/28/2024 [facility] Work Phone: Comment on above: 1 Occurrences starti ng 08/28/2023 until 08/28/2024 [facility] Immunizations Immunization Date Immunization Notes Care Provider Fa marta 06-24-2023 Influenza High-Dose Quadrivalent Dr. Usman Patel Work Phone: [facility] 06-24-2023 influenza virus vacc ine, unspecified formulation Usman Patel MD Work Phone: [facility] 11-14-2022 tetanus toxoid, redu silvia diphtheria toxoid, and acellular pertussis vaccine, adsorbed Usman Patel MD Work Phone: [facility] 05-17-2022 COVID-19 booster vaccine, age 12+ yr, bivalent (PFIZER-BIONTECH) Usman Patel MD Work Phone: [facility] 05-17-2022 influenza, high-dose , quadrivalent vaccine (FLUZONE HIGH DOSE QUADRIVALENT) Usman Patel MD Work Phone: [facility] 05-17-2022 influenza virus vacc ine, unspecified formulation Shayna Frias APRN.CNP Work Phone: [facility] 08-02-2021 COVID-19 vaccine, ag e 12+ yr (PFIZER-BIONTECH - BEYER TOP) Usman Patel MD Work Phone: [facility] Work Phone: 05-10-2021 influenza, high-dose , quadrivalent vaccine (FLUZONE HIGH DOSE QUADRIVALENT) Usman Patel MD Work Phone: [facility] 09-11-2020 COVID-19 vaccine, fu ll dose (MODERNA) Usman Patel MD Work Phone: [facility] 08-14-2020 COVID-19 vaccine, fu ll dose (MODERNA) Usman Patel MD Work Phone: [facility] 05-07-2020 influenza, high dose seasonal, preservative-free Usman Patel MD Work Phone: [facility] 05-07-2020 influenza, high-dose , quadrivalent vaccine (FLUZONE HIGH DOSE QUADRIVALENT) Usman Patel MD Work Phone: [facility] 05-21-2019 influenza, high dose seasonal, preservative-free Usman Patel MD Work Phone: [facility] 07-26-2018 influenza, high dose seasonal, preservative-free Usamn Patel MD Work Phone: [facility] 05-12-2017 influenza, high dose seasonal, preservative-free Usman Patel MD Work Phone: [facility] 04-16-2017 influenza, high dose seasonal, preservative-free Usman Patel MD Work Phone: [facility] 03-17-2017 Influenza virus vaccine [facility] 03-17-2017 influenza, seasonal, injectable, preservative free Usman Patel MD Work Phone: [facility] 12-02-2016 pneumococcal polysaccharide vaccine, 23 valent Usman Patel MD Work Phone: [facility] 05-23-2016 influenza, high dose seasonal, preservative-free Usman Patel MD Work Phone: [facility] 11-30-2015 pneumococcal conjuga te vaccine, 13 valent Usman Patel MD Work Phone: [facility] 07-27-2013 pneumococcal polysaccharide vaccine, 23 valent Usman Patel MD Work Phone: [facility] 07-27-2013 pneumococcal vaccine , unspecified formulation [facility] 05-27-2013 influenza virus vacc ine, unspecified formulation Usman Patel MD Work Phone: [facility] 05-17-2013 Influenza virus vaccine [facility] 07-27-2009 novel influenza-H1N1 -09, preservative-free, injectable Usman Patel MD Work Phone: [facility] 05-08-2009 influenza virus vacc ine, whole virus Usman Patel MD Work Phone: [facility] 05-22-2008 influenza virus vacc ine, unspecified formulation Usman Patel MD Work Phone: [facility] 05-15-2007 influenza virus vacc ine, whole virus Usman Patel MD Work Phone: [facility] Payers Date Payer Category Payer Unknown [id number] 2024 Unknown [id number] 2024 Self-pay [id number] 2024 Unknown [id number] 2022 Medicare [id number] 2020 Medicare HUMANA MEDICARE HUMANA GOLD PLUS [id number] 2020-[facility] [phone] [place] [id number] [facility] [place] [place] [id number] 2020 Medicare [id number] 2001 Medicare MEDICARE PART A B [id number] Unknown [id number] Unknown [id number] Unknown [id number] Unknown [id number] Unknown [id number] Unknown [id number] Unknown [id number] Unknown [id number] Unknown [id number] Unknown [id number] Unknown [id number] Unknown [id number] [id number] Unknown [id number] [id number] Unknown [id number] [id number] Unknown [id number] [id number] Unknown [id number] [id number] Unknown [id number] [id number] Unknown [id number] [id number] Unknown [id number] Unknown [id number] [id number] Unknown [id number] [id number] Unknown [id number] Unknown [id number] Social History Date Type Detail Facility Start: 05-17-2022 End: 05-02-2025 Tobacco smoking status NHIS Ex-smoker [facility] Work Phone: Start: 1968 End: 05-09-2007 History of tobacco use Current smoker [facility] Work Phone: Start: 11-08-2021 End: 10-20-2023 Alcohol intake Current drinker of alcohol (finding) [facility] Start: 11-01-2016 History SDOH Alcohol Comment Very occasionally. [facility] Start: 11-01-2016 End: 05-17-2022 Tobacco Comment Father smoked in childhood home. Prior roomate smoked. [facility] Start: 1950 Sex Assigned At Not on file [facility] Start: 07-14-2021 End: 05-17-2022 Exposure to SARS-CoV-2 (event) Not sure [facility] Start: 1968 End: 05-09-2007 History of tobacco use Cigarette Smoker [facility] Start: 05-17-2022 End: 05-17-2023 Cigarettes smoked current (pack per day) - Reported 1.5 [facility] Work Phone: Start: 11-01-2016 End: 05-17-2022 Tobacco use and exposure Smokeless tobacco non-user [facility] Start: 02-24-2023 End: 06-23-2023 Tobacco smoking status NHIS Unknown if ever smoked [facility] Start: 08-30-2017 None [facility] Start: 02-24-2023 Alone [facility] Start: 02-24-2023 Non-smoker [facility] Start: 1950 Sex Assigned At Male [facility] Start: 11-14-2022 End: 05-17-2023 Tobacco use panel [facility] Work Phone: Adult Depression Screening Assessment 0 [facility] Work Phone: Start: 10-17-2024 End: 10-23-2024 Sex Male (finding) [facility] Goals Date Patient Goal Desired Activity /State Functional Status Date Assessment Result Facility 06-25-2023 Functional status Ambulates Nirmal Barber [facility] Work Phone: Mental Status Date Assessment Result Facility 06-25-2023 Cognitive function Voice/Name Nirmal Harris [facility] Work Phone: Clinical Notes 06-27-2014 to 07-02-2024 Telephone Encounter - Julieta Mckay MA - 07/02/2024 11:52 AM ESTTelephone Encounter - Julieta Mckay MA - 07/02/2024 11:52 AM ESTTelephone Encounter - Norma Rogers MA - 07/02/2024 9:24 AM EST Note Date & Type Note Facility 07-02-2024 Telephone encounter Note Form signed and faxed back to number below. Julieta Mckay MA [facility] 07-02-2024 Miscellaneous Notes Form signed and faxed back to number below. Julieta Mckay MA Type of letter/form/fax request - order from [facility] Form received from fax on 1 floor and placed on MD desk (Dr. Patel) for completion. Completed form needs to be faxed to [employer] at [phone]. Route to [place] when form completed for processing documented in this encounter [facility] 07-02-2024 Telephone encounter Note Type of letter/form/fax request - order from [facility] Form received from fax on 1 floor and placed on MD desk (Dr. Patel) for completion. Completed form needs to be faxed to [employer] at [phone]. Route to [place] when form completed for processing [facility] 05-10-2024 Telephone encounter Note Faxed. Norma Rogers MA [facility] 05-10-2024 Miscellaneous Notes Faxed. Norma Rogers MA Type of form: 90 day order for Adult Day Care Services through [facility] Form received via fax When form is completed, Fax form to [phone] Form has been forwarded to Physician Desk: Dr. Jorge Mckay MA documented in this encounter [facility] 05-09-2024 Telephone encounter Note Type of form: 90 day order for Adult Day Care Services through [facility] Form received via fax When form is completed, Fax form to [phone] Form has been forwarded to Physician Desk: Dr. Jorge Mckay MA [facility] 03-05-2024 Telephone encounter Note OK to refill as ordered Usman Patel MD [facility] 03-05-2024 Miscellaneous Notes OK to refill as ordered Usman Patel MD Images from the original note were not included. See prescription sig note from Pharmacy regarding medication use. documented in this encounter [facility] 03-05-2024 Telephone encounter Note Images from the original note were not included. See prescription sig note from Pharmacy regarding medication use. [facility] 03-04-2024 Telephone encounter Note The following approved [...] a day. Authorizing Provider: USMAN PATEL MA [facility] 03-04-2024 Miscellaneous Notes The following approved medication [...] Amara Almaraz March 04, 2024 2:19 PM documented in this encounter [facility] 03-04-2024 Telephone encounter Note OK to refill as ordered Usman Patel MD [facility] 03-04-2024 Telephone encounter Note Prescription Refill Information [...] mouth two times a day. Amara Farr [facility] March 04, 2024 2:19 PM [facility] 02-06-2024 Telephone encounter Note Form faxed. Norma Rogers MA [facility] 02-06-2024 Miscellaneous Notes Form faxed. Norma Rogers MA Type of letter/form/fax request - 90 day order for adult daycare Form received from fax on 1 floor and placed on MD desk (Dr. Patel) for completion. Completed form needs to be faxed to [facility] at [phone].. Route to [place] when form completed for processing documented in this encounter [facility] 02-06-2024 Telephone encounter Note Type of letter/form/fax request - 90 day order for adult daycare Form received from fax on 1 floor and placed on MD desk (Dr. Patel) for completion. Completed form needs to be faxed to [facility] at [phone].. Route to [place] when form completed [facility] processing [facility] [facility] History of Presen t illness Narrative [...] with chronic bronchitis 12/02/2016 Debility Diarrhea Hypoxia 2017 Infantile cerebral palsy, unspecified Other convulsions Partial small bowel obstruction (HCC) 06/27/2014 Peroneal DVT (deep venous thrombosis) (HCC) 09/05/2013 Right spastic hemiparesis (HCC) 06/27/2014 Screening for malignant neoplasm of colon 02/01/2016 Seasonal allergic rhinitis Spring through . Seizures (HCC) Small bowel obstruction (HCC) Suspected chronic obstructive pulmonary disease based on initial evaluation (HCC) 2017 Previous Surgical History PAST SURGICAL HISTORY Procedure [...] Usman Patel MD documented in this encounter [facility] 10-20-2023 Note HNO ID: [id number] Author: USMAN PATEL MD Service: ? Author [...] Vaccine(2 - Td (more content not included)... [facility] 10-19-2023 Miscellaneous Notes Form signed and faxed back to information below. Julieta Mckay MA Type of form: 90 day order from [employer] Form received via fax When form is completed, Fax form to [phone] Form has been forwarded to Physician Desk: Dr. Jorge Mckay MA documented in this encounter [facility] 10-05-2023 Note HNO ID: [id number] Author: JAGRUTI TSANG PT Service: ? Author Type: Physical Therapist Type: Progress Notes Filed: 10/05/2023 07:53 Note Text: Summary: PT DC 10/05/2023 [facility] PHYSICAL THERAPY [...] or scheduled additional follow-up appointments. Jagruti Tsang, PT [facility] 08-28-2023 Note HNO ID: [id number] Author: RACHELLE PEARL RN Service: ? Author Type: Registered Nurse Type: Progress Notes Filed: 08/28/2023 11:43 Note Text: EVENT MONITOR DISPOSABLE PATCH INSTRUCTIONS Patient Name: J Luis Madera [facility] Number: [id number] Skin prepped and cleansed with alcohol Patch secured to prepped area Monitor Activated Serial #: [id number] Patient Instructed: Prescribed order timeframe Bathing guidelines Usage of event button and diary documentation Return of monitor at the end of prescribed order Call with problems [phone] or [phone]. [phone] Patient expresses a good understanding of instructions Rachelle Pearl RN [facility] 08-28-2023 History of Presen t illness Narrative EVENT MONITOR DISPOSABLE PATCH INSTRUCTIONS Patient Name: J Luis Madera [facility] Number: [id number] Skin prepped and cleansed with alcohol Patch secured to prepped area Monitor Activated Serial #: [id number] Patient Instructed: Prescribed order timeframe Bathing guidelines Usage of event button and diary documentation Return of monitor at the end of prescribed order Call with problems [phone] or [phone]. [phone] Patient expresses a good understanding of instructions Rachelle Pearl RN Images from the original note were not included. [facility] SECTION OF REGIONAL CARDIOLOGY Cardiology ([facility]) [address] [phone] OUTPATIENT VISIT DATE 08/28/2023 PRIMARY CARE PHYSICIAN: Usman Patel [address] [place] [address] REFERRING PHYSICIAN: Temitope Lara [address] [facility] [address] CHIEF COMPLAINT: Dizziness HISTORY OF PRESENT ILLNESS: [...] CHLORIDE 0.9 % (FLUSH) INJECTION SYRINGE - US CAROTID ARTERIES [facility] - OUTSIDE VENDOR CARDIAC OUTPATIENT [...] Aiden Mccrary MD documented in this encounter [facility] 08-28-2023 Instructions Aiden Mccrary MD - 08/28/2023 10:48 AM EST We are ordering an Echocardiogram, Carotid ultrasound and a heart monitor documented in this encounter [facility] 08-28-2023 Note HNO ID: [id number] Author: AIDEN MCCRARY MD Service: ? Author Type: Physician Type: Progress Notes Filed: 08/28/2023 11:43 Note Text: [facility] REGIONAL CARDIOLOGY Cardiology ([facility]) [address] [facility] [phone] OUTPATIENT VISIT DATE 08/28/2023 PRIMARY CARE PHYSICIAN: Usman Patel [address] [place] [address] REFERRING PHYSICIAN: Temitope Lara [address] [facility] [address] CHIEF COMPLAINT: Dizziness HISTORY OF PRESENT ILLNESS: [...] artery are norm (more content not included)... [facility] 08-15-2023 Note HNO ID: [id number] Author: JALEESA THOMAS RT(R) Service: ? Author Type: Technologist [...] PATIENT PRESENTS WITH AN IMPLANTABLE OR ATTACHED CAMPUS SAFETY OFFICER: No RADIOLOGY DEPARTMENT: MR; Exam(s) Completed: Spine: Cervical spine PERIPHERAL IV DATA: Not applicable SIGNED BY: Jaleesa Thomas RT(R) August 15, 2023 1:58 PM [facility] 08-08-2023 Note HNO ID: [id number] Author: MARY KAY BAIRES, PT, DPT Service: [...] he is requesting to transfer to the [facility] which is closer to home. He [...] Patient to be seen for Therapeutic exercise (76512), Neuromuscular re-education (14291), Therapeutic activities (57227), Self-skilled nursing management (42582), Gait Training (42441) PLAN FOR NEXT VISIT: Gait and balance training. Functional strengthening. Transfer of Care Due To: Closer to Home Patient transferring care to: [place] SUBJECTIVE: J Luis returns for first follow up since his eval; he is limited in ability to attend PT at this clinic due to distance from home and reliance on others for transportation. He would like to transfer to the [place] clinic. He denies falls since his last [...] and purpose f (more content not included)... [facility] 07-19-2023 Note HNO ID: [id number] Author: Temitope Lara PA-C Service: ? Author Type: Physician Underwriting Director Type: Progress Notes Filed: 07/19/2023 4:16 PM Note Text: Neurology Outpatient Clinic Date: July 19, 2023 Patient Name: J Luis Madera Referring physician: Usman Patel [address] [phone] Consult requested for dizziness by Dr. Patel. Recommendations will be communicated via shared medical record or US mail. Primary physician: Usman Patel [address] [phone] Reason for Evaluation: Dizziness and seizures Subjective [...] He is here for established care with [facility] epilepsy department again. No seizure was reported [...] On tegretol and keppra and sent to T for dizziness at that appointment. Saw PCP [...] niece called EMS and he was transported [facility]. Reported that his dizziness gets worse with standing but denies any presyncope or lightheaded sensation, described more of a room spinning dizziness. Improves when he sits down or lays down, has difficulty stating how often it occurs but notes that he falls from this dizziness once or twice a month. MRI obtained at [facility] showed no acute infarct and stable chronic changes. Patient does not remember much about his admission, states that no scans were obtained and has difficulty remembering. Notes that he has passed out in the past secondary to this dizziness and he estimates the last occurrence was 6 to 12 months ago. 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 [facility] 07-14-2023 Note HNO ID: [id number] Author: Elsa Joaquin PT Service: ? Author [...] Planned: 8 Planned Treatment Interventions: Therapeutic exercise (36497), Neuromuscular re-education (47134), Therapeutic activities (56462) PLAN FOR NEXT VISIT: neuro training, LE [...] Flexibility Flexibility: Hip (more content not included)... [facility] 06-27-2023 History of Presen t illness Narrative Noted; will discuss at his follow up appt Usman Patel MD TRANSITION CARE MANAGEMENT (TCM) INITIAL CONTACT Manhole Builder Outreach Provider Action/FYI: Patient calls and states [...] might be hidden SUMMARY: -Pt discharged from [facility] on 06/25/23. -Admitted for: dizziness Do [...] hospitalization: Care Everywhere documented in this encounter [facility] 06-26-2023 Miscellaneous Notes I agree with the [...] weak and he needs to go to shelter, she can not care for him, she can not get him down the steps to first floor. Advised to call squad and have him go to ER for evaluation, would need 3 day stay at the hospital and then get shelter placement. documented in this encounter [facility] 06-25-2023 Discharge summary Note Date/Time June 25, 2023 12:25pm [facility] Medical Records Department [address] [place] [address] Discharge Summary 06/25/23 1223 MR#: [id number] Acct: [id number] Name: J LUIS MADERA Rep #:[id number] : 1950 73 From: Kike Putnam PCP: Dr. Usman Patel MD Status:ADARSH CLARK [facility]: [facility] GL131-1 Providers Date of Admission: 06/23/23 Date of [...] history of cerebralpalsy: [facility] Etiology unclear but patient is asymptomatic [...] Self Care Charges/Coding Visit Charges Inpatient E&M: 09968 Disch Hosp >30min 06/25/23 1228 <Electronically signed by Kike Malave MD> Cosigner Signature (if applicable): CC: Dr. Usman Patel MD; Dr. Kike Malave MD~ Signed [facility] Work Phone: 1(935) 929-583212-10-2023 Discharge summary Author Kike Malave [facility] June 25, 2023 12:23pm Note Date/Time June 25, 2023 11:53am [facility] Medical Records Department [address] [place] [address] Instructions for Home/Discharge Instructions 06/25/23 1000 MR#: [id number] Acct: [id number] Name: J LUIS MADERA Rep #:[id number] : 1950 73 From: Kike Putnam PCP: [...] Care 06/25/23 1223<Electronically signed by Kike Malave MD>Kike Malave MD CC: Dr. Usman Patel MD; Dr. Raoul Oliver MD ~ Signed [facility] Work Phone: 1(582) 278-987112-09-2023 Progress note Author Kike Malave [facility] June 24, 2023 12:00pm Note Date/Time June 24, 2023 7 :37am [facility] Health System Medical Records Department [address] [place] [address] Progress Note - Hospitalist 06/24/23 0735 MR#: [id number] Acct: [id number] Name: J LUIS MADERA Rep #:[id number] : 1950 73 From: Kike Putnam PCP: Dr. Usman Patel MD Status:ADARSH CLARK Location: [place]3 IQ637-5 Reason for Visit Reason for Visit: Diagnoses [...] (Auto) 71.2 H, Lymph % (Auto)16.1 L, [place] % (Auto) 8.6, Eos % (Auto) 2.3, [...] Clarity Clear, Urine pH 6.0, Ur Specific [place] 1.015, Urine Protein 15 H, Urine Glucose [...] % (Auto) 57.0, Lymph % (Auto) 24.4, [place] % (Auto) 11.4 H, Eos % (Auto) [...] 19:12 EST Reading Location ID and State: [facility] / MD Tel , Service support , Physical Exam [...] history of cerebralpalsy: [facility]. Etiology unclear but patient is asymptomatic [...] DVT: Heparin Charges/Coding Visit Charges Inpatient E&M: 59902 Subs Hosp L2 06/24/23 1200 <Electronically signed by Kike Malave MD> Cosigner Signature (if applicable): CC: ~ Signed [facility] Work Phone: 1(939) 212-793012-09-2023 Discharge summary Author Ethan Martinez [facility] June 23, 2023 11:16pm Note Date/Time June 23, 2023 2 :12pm [facility] Medical Records Department [address] [place] [address] Emergency Department Summary 06/23/23 MR#: [id number] Acct: [id number] Name: J LUIS MADERA Rep #:[id number] : 1950 73 From: Ethan Martinez DO PCP: Dr. Usman Patel MD Status:AD M EDUARDO Location: [place] [address] HPI History of Present Illness Chief Complaint: [...] palsy but normally ambulates on his own. [facility] Medical History (Updated 06/23/23 @ 16:36 [...] 71.2 H Lymph % (Auto) 16.1 L [place] % (Auto) 8.6 Eos % (Auto) 2.3 [...] Clarity Clear Urine pH 6.0 Ur Specific [place] 1.015 Urine Protein 15 H Urine Glucose [...] Generalized weakness Disposition Disposition: Acute Care Hospital [facility] What to do if you have Problems For any increased pain, shortness of breath, bleeding, nausea or vomiting, chestpain, or any unexpected problems, contact your Primary Care Provider. Call [facility] ([phone]) or report to the closest Emergency Room. Call 911 if necessary. 06/23/232315 <Electronically signed by Ethan Martinez DO> Cosigner Signature (if applicable): CC: Dr. Usman Patel MD ~ Signed [facility] Work Phone: 1(116) 814-218512-08-2023 History and physical note Author Raoul Oliver [facility] June 23, 2023 6:57pm Note Date/Time June 23, 2023 5 :22pm [facility] Medical Records Department [address] [place] [address] H&P Exam - Hospitalist 06/23/23 1715 MR#: [id number] Acct: [id number] Name: J LUIS MADERA Rep #:[id number] : 1950 73 From: Raoul ly MD PCP: Dr. Usman Patel MD Status:AD M EDUARDO Location: [place]3 BM793-5 HPI - General General Date of Admission: [...] any change in his baseline neurological functioning. [facility] Medical History (Updated 06/23/23 @ 16:36 [...] History (Updated 06/23/23 @ 17:[address] Roaul Oliver MD) History of tonsillectomy Social History [...] (Auto) 71.2 H, Lymph % (Auto)16.1 L, [place] % (Auto) 8.6, Eos % (Auto) 2.3, [...] Clarity Clear, Urine pH 6.0, Ur Specific [place] 1.015, Urine Protein 15 H, Urine Glucose [...] with colleagues Charges/Coding Visit Charges Inpatient E&M: 49751 Init Hosp L3 06/23/23 4197 <Electronically signed by Raoul lOiver MD> Cosigner Signature (if applicable): CC: Dr. Usman Patel MD; Dr. Raoul Oliver MD~ Signed [facility] Work Phone: 1(547) 721-871411-16-2023 Miscellaneous Notes* Telephone Encounter - Renee Quintanilla [...] you. Tyra Frazier LPN. [facility] [place] Instructions* Patient Instructions* Shayna Frias APRN.CNP - 05/17/2023 2:16 PM EDT Get fasting labs done, no food 10 hours prior, water and black coffee are okay Get flu vaccine next week when you are feeling better Continue medications as prescribed Follow up in 6 months or sooner as needed [facility] [place] History of Present illness Narrative* Shayna Frias [...] like his increased [facility] so he [...] palsy (HCC) 06/27/2014 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 Shayna Frias APRN.MECHANICAL DESIGN ENGINEER FACILITIES [facility] [place] Miscellaneous Notes* Telephone Encounter - Renee Quintanilla, RN - 02/27/2023 5:27 PM EDT Spoke [...] reports that he fell on Monday02/24/23 at [facility] when he was getting up to go the restroom. Notes he made a turn to quickly and lost his balance. States that his right foot buckled on him, causing him to go sideways causing him to fall on his bad foot. He broke a couple of bones in his ankle of his already bad food. Was seen at [facility] ED, this is where they gave [...] Patient fell 02/24 at the [facility], he hurt his right foot. They advised him to let Dr. Patel know. Patient also has some questions regarding the brace they gave him. Please review and advise. Kimmy Webb [facility] [place] History of Present illness Narrative* Terri Tomas RT(Franco) - 11/24/2022 3:00 PM EDT Radiology Service [...] 24, 2022 4:07 PM documented [facility] [place] History of Present illness Narrative* Brenda Yusuf [...] 15, 2022 2:02 PM [facility] [place]23 Miscellaneous Notes* Telephone Encounter - Jolly Laguerre [...] pulmonology. Shayna Frias APRN.GERA documented [facility] [place] Procedure note* CHELSY Tovar - 09/13/2022 1:23 [...] 2022 TIME: 1:23 PM documented [facility] [place] History of Present illness Narrative* CHELSY Tovar - 09/13/2022 1:21 PM EST PULM FUNCTION SMARTBLOCK: Provider: Shayna Frias APRN.MECHANICAL DESIGN ENGINEER FACILITIES Assisting Tech: CHELSY Tovar Spirometry w/BD: 1 LV - Box: 1 Exhaled Nitric Oxide: 1 documented [facility] [place] History of Present illness Narrative* Shayna Frias APRN.MECHANICAL DESIGN ENGINEER FACILITIES - 09/08/2022 2:20 PM EST This is [...] (HCC) 06/27/2014 Peroneal DVT (deep venous thrombosis) ([facility]) 09/05/2013 Right spastic hemiparesis (HCC) [...] discussed and patient voices understanding. Shayna Frias APRN.MECHANICAL DESIGN ENGINEER FACILITIES This note was partially generated using [employer] voice recognition system. Note was reviewed for accuracy. There may be minor misspellings or grammar miscues with [employer] voice recognition. documented [facility] [place] Instructions* Patient Instructions* Shayna Frias APRN.CNP - 09/08/2022 2:15 PM EST Schedule Chest CT scan Complete pulmonary tests Continue to take all medication as prescribed. Follow up pending test results or sooner as needed. documented [facility] [place]23 Miscellaneous Notes* Telephone Encounter - Salima Teixeira RN - 09/07/2022 4:40 PM EST Insurance was added. Pt was scheduled. * Telephone Encounter - Salima Teixeira RN - 09/07/2022 4:28 PM EST Pt was transferred to scheduling so they could put his insurance information into the computer. A hold was placed on Shayna Frias NP 220 pm appointment tomorrow for the Pt. Please schedule Pt once insurance info is in. documented [facility] [place]23 Miscellaneous Notes* Telephone Encounter - Jolly Laguerre [...] you. Shayna Frias APRN.CNP documented in [facility] [place]23 Instructions* Patient Instructions* Shayna Frias APRN.CNP - [...] to prevent muscle stiffness. 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 - May continue to use [id number] cold and cough medications as needed. - [...] discussed and patient voices understanding. Shayna Frias APRN.MECHANICAL DESIGN ENGINEER FACILITIES This note was partially generated using [employer] voice recognition system. Note was reviewed for accuracy. There may be minor misspellings or grammar miscues with [employer] voice recognition. [facility] [place] Miscellaneous Notes* Telephone Encounter - Norma Rogers Ma - 07/12/2022 3:02 PM EST faxed * Telephone Encounter - Norma Rogers Ma - 07/12/2022 12:36 PM EST Patient has been identified by name and date of : Yes, Provider Jorge Date 07/12/22 Time 12:36 pm Type of form: plan of care Form received via: Fax-Prior Knowledge When form is completed, fax form to fax number provided. Form has been forwarded to: Provider's desk. Provider name: Jorge Rogers Ma documented in [facility] encounter[facility] [place] Miscellaneous Notes* Telephone Encounter - Roger Pfeiffer RN - 06/10/2022 3:04 PM EST See 05-24-22 encounter. Patient returned call and given provider's message. 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 Reports there was a week he missed taking the levothyroxine 88 mcg, because he had to wait until his money came. Patient agreeable to return tolab in 2 mths for recheck. documented in this encounter[facility] [place] Miscellaneous Notes* Telephone Encounter - Norma Rogers Ma - 05/26/2022 9:17 AM EST [employer] message sent to pt, asking them to [...] Provider: FRITZ GRANADOS APRN.CNP documented in this encounter[facility] [place] History of Present illness Narrative* Usman Patel MD - 05/17/2022 3:00 PM EDT Chief Complaint Patient presents with: 6 Month Exam Immunizations: Flu vaccination HPI J Luis Madera is a 72 year old male who presents here today for 6 month follow up. Goes to [facility] 3 days/week. He states that the nurse at [facility] is working with him on trying to [...] obstructive pulmonary disease based on initial evaluation ([facility]) 2018 Previous Surgical History PAST [...] Past Histories independently gathered by the clinical customer support analyst and the remaining scribed note accurately describes [...] PM. Norma Rogers Ma documented in this encounter[facility] [place] History of Present illness Narrative* Lora Nunes RN - 12/08/2021 1:51 PM EDT [employer] Enrollment Provider Action/FYI: [employer] message introducing [employer] Home Monitoring program sent to pt. Will outreach pt x1-2 days. Patient referred by: [facility] Berenice Contact made with patient: No - Unable to leave message: (Keep encounter open and attempt 2nd outreach in two business days from today). END OUTREACH Lora Nunes RN December 08, 2021 1:53 PM documented in this encounterSelect [facility] [place]22 History of Present illness Narrative* RT Nimisha(R) [...] 23, 2021 3:23 PM documented in [facility] encounterSelect [facility] [place]-2022 Miscellaneous Notes* Telephone Encounter - Norma Rogers Ma - 11/12/2021 2:03 PM EDT Pt notified of results via [email or web address]. Norma Rogers Ma * Telephone Encounter - Usman Patel MD - 11/12/2021 2:01 PM EDT Please notify patient that his blood test results look OK; stay on the same medications and follow up in 6 months as planned Usman Patel MD documented [facility] encounter[facility] [place] History of Present illness Narrative* Sylvia Gates [...] 13, 2021 4:21 PM documented in [facility] encounter[facility] [place] History of Past illness Narrative* Problem Noted Date Resolved Date Partial small bowel obstruction 06/27/2014 12/02/2016 Peroneal DVT (deep venous thrombosis) 09/05/2013 06/27/2014 ASA CLASS III 05/10/2002 10/30/2018 documented as of this encounter (statuses as of 11/12/2021) [facility] [place] History of Past illness Narrative* Problem Noted Date Resolved Date Partial small bowel obstruction 06/27/2014 12/02/2016 Peroneal DVT (deep venous thrombosis) 09/05/2013 06/27/2014 ASA CLASS III 05/10/2002 10/30/2018 documented as of this encounter (statuses as of 11/24/2021) [facility] [place] History of Past illness Narrative* Problem Noted Date Resolved Date Partial small bowel obstruction 06/27/2014 12/02/2016 Peroneal DVT (deep venous thrombosis) 09/05/2013 06/27/2014 ASA CLASS III 05/10/2002 10/30/2018 documented as of this encounter (statuses as of 12/08/2021) [facility] [place] History of Past illness Narrative* Problem Noted Date Resolved Date Partial small bowel obstruction 06/27/2014 12/02/2016 Peroneal DVT (deep venous thrombosis) 09/05/2013 06/27/2014 ASA CLASS III 05/10/2002 10/30/2018 documented as of this encounter (statuses as of 05/17/2022) [facility] [place] History of Past illness Narrative* Problem Noted Date Resolved Date Partial small bowel obstruction 06/27/2014 12/02/2016 Peroneal DVT (deep venous thrombosis) 09/05/2013 06/27/2014 ASA CLASS III 05/10/2002 10/30/2018 documented as of this encounter (statuses as of 05/27/2022) [facility] [place]12-[facility] History of Past illness Narrative* Problem Noted Date Resolved Date Partial small bowel obstruction 06/27/2014 12/02/2016 Peroneal DVT (deep venous thrombosis) 09/05/2013 06/27/2014 ASA CLASS III 05/10/2002 10/30/2018 documented as of this encounter (statuses as of 07/18/2022) [facility] [place]12[facility]12[facility] History of Past illness Narrative* Problem Noted Date Resolved Date Partial small bowel obstruction 06/27/2014 12/02/2016 Peroneal DVT (deep venous thrombosis) 09/05/2013 06/27/2014 ASA CLASS III 05/10/2002 10/30/2018 documented as of this encounter (statuses as of 08/25/2022) [facility] [place]12-[facility] History of Past illness Narrative* Problem Noted Date Resolved Date Partial small bowel obstruction 06/27/2014 12/02/2016 Peroneal DVT (deep venous thrombosis) 09/05/2013 06/27/2014 ASA CLASS III 05/10/2002 10/30/2018 documented as of this encounter (statuses as of 08/25/2022) [facility] [place] History of Past illness Narrative* Problem Noted Date Resolved Date Partial small bowel obstruction 06/27/2014 12/02/2016 Peroneal DVT (deep venous thrombosis) 09/05/2013 06/27/2014 ASA CLASS III 05/10/2002 10/30/2018 documented as of this encounter (statuses as of 09/08/2022) [facility] [place] History of Past illness Narrative* Problem Noted Date Resolved Date Partial small bowel obstruction 06/27/2014 12/02/2016 Peroneal DVT (deep venous thrombosis) 09/05/2013 06/27/2014 ASA CLASS III 05/10/2002 10/30/2018 documented as of this encounter (statuses as of 09/08/2022) [facility] [place] History of Past illness Narrative* Problem Noted Date Resolved Date Partial small bowel obstruction 06/27/2014 12/02/2016 Peroneal DVT (deep venous thrombosis) 09/05/2013 06/27/2014 ASA CLASS III 05/10/2002 10/30/2018 documented as of this encounter (statuses as of 09/13/2022) [facility] [place]12[facility] History of Past illness Narrative* Problem Noted Date Resolved Date Partial small bowel obstruction 06/27/2014 12/02/2016 Peroneal DVT (deep venous thrombosis) 09/05/2013 06/27/2014 ASA CLASS III 05/10/2002 10/30/2018 documented as of this encounter (statuses as of 09/19/2022) [facility] [place] History of Past illness Narrative* Problem Noted Date Resolved Date Partial small bowel obstruction 06/27/2014 12/02/2016 Peroneal DVT (deep venous thrombosis) 09/05/2013 06/27/2014 ASA CLASS III 05/10/2002 10/30/2018 documented as of this encounter (statuses as of 11/10/2022) [facility] [place] History of Past illness Narrative* Problem Noted Date Diagnosed Date Resolved Date Partial small bowel obstruction 06/27/2014 12/02/2016 Peroneal DVT (deep venous thrombosis) 09/05/2013 06/27/2014 ASA CLASS III 05/10/2002 10/30/2018 documented as of this encounter (statuses as of 02/28/2023) [place] [address]-12-2014 History of Past illness Narrative* Problem Noted Date Diagnosed Date Resolved Date Partial small bowel obstruction 06/27/2014 12/02/2016 Peroneal DVT (deep venous thrombosis) 09/05/2013 06/27/2014 ASA CLASS III 05/10/2002 10/30/2018 documented as of this encounter (statuses as of 05/18/2023) [facility] [place] History of Past illness Narrative* Problem Noted Date Diagnosed Date Resolved Date Partial small bowel obstruction 06/27/2014 12/02/2016 Peroneal DVT (deep venous thrombosis) 09/05/2013 06/27/2014 ASA CLASS III 05/10/2002 10/30/2018 documented as of this encounter (statuses as of 05/20/2023) [facility] [place] History of Past illness Narrative* Problem Noted Date Diagnosed Date Resolved Date Partial small bowel obstruction 06/27/2014 12/02/2016 Peroneal DVT (deep venous thrombosis) 09/05/2013 06/27/2014 ASA CLASS III 05/10/2002 10/30/2018 documented as of this encounter (statuses as of 06/02/2023) [facility] [place] History of Past illness Narrative* Problem Noted Date Diagnosed Date Resolved Date Partial small bowel obstruction 06/27/2014 12/02/2016 Peroneal DVT (deep venous thrombosis) 09/05/2013 06/27/2014 ASA CLASS III 05/10/2002 10/30/2018 documented as of this encounter (statuses as of 06/27/2023) [facility] [place] History of Past illness Narrative* Problem Noted Date Diagnosed Date Resolved Date Partial small bowel obstruction 06/27/2014 12/02/2016 Peroneal DVT (deep venous thrombosis) 09/05/2013 06/27/2014 ASA CLASS III 05/10/2002 10/30/2018 documented as of this encounter (statuses as of 06/28/2023) [facility] [place] History of Past illness Narrative* Problem Noted Date Diagnosed Date Resolved Date Partial small bowel obstruction 06/27/2014 12/02/2016 Peroneal DVT (deep venous thrombosis) 09/05/2013 06/27/2014 ASA CLASS III 05/10/2002 10/30/2018 documented as of this encounter (statuses as of 08/28/2023) [facility] [place] History of Past illness Narrative* Problem Noted Date Diagnosed Date Resolved Date Partial small bowel obstruction 06/27/2014 12/02/2016 Peroneal DVT (deep venous thrombosis) 09/05/2013 06/27/2014 ASA CLASS III 05/10/2002 10/30/2018 documented as of this encounter (statuses as of 10/20/2023) [facility] [place] History of Past illness Narrative* Problem Noted Date Diagnosed Date Resolved Date Partial small bowel obstruction 06/27/2014 12/02/2016 Peroneal DVT (deep venous thrombosis) 09/05/2013 06/27/2014 ASA CLASS III 05/10/2002 10/30/2018 documented as of this encounter (statuses as of 10/20/2023) [facility] Diagnosis Lung nodules Other nonspecific abnormal finding of lung field [facility] [place] Diagnosis Hypothyroidism, acquired- Primary Unspecified hypothyroidism [...] unspecified type (HCC) documented [facility] Diagnosis Hypothyroidism, acquired Unspecified hypothyroidism [facility] [place]* Diagnosis Sinobronchitis- Primary Unspecified sinusitis (chronic) documented [facility] [place]* Diagnosis Cough, unspecified type- Primary SOB (shortness of breath) Shortness of breath COPD with chronic bronchitis (HCC) Obstructive chronic bronchitis without exacerbation [facility]* Diagnosis SOB (shortness of breath) Shortness of breath COPD with chronic bronchitis (HCC) Obstructive chronic bronchitis without exacerbation [facility] [place]* Diagnosis SOB (shortness of breath) Shortness of breath COPD with chronic bronchitis (HCC) Obstructive chronic bronchitis without exacerbation [facility] [place] noteNo assessment information availableWMartins Ferry [facility] Work Phone: Evaluation note* Diagnosis Generalized [...] and unspecified hyperlipidemia documented in this encounter [facility] note* Diagnosis Lung nodules Other nonspecific abnormal finding of lung field documented in this encounter [facility] note* Diagnosis Screening for AAA (abdominal aortic aneurysm) Screening for other and unspecified cardiovascular conditions documented in this encounter [facility] note* Diagnosis Hypothyroidism, acquired Unspecified hypothyroidism documented in this encounter [facility] note* Diagnosis Onset Date Resolution Status Dizziness acute Generalized weakness acute Hx of cerebral palsy acute [facility] Work Phone: Evaluation note* Diagnosis Syncope and collapse Vasovagal syncope Syncope and collapse Palpitations documented in this encounter [facility] note* Diagnosis Hypothyroidism, acquired- Primary Unspecified hypothyroidism Balance problem Other symptoms involving nervous and musculoskeletal systems Dizziness Dizziness and giddiness 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) Obstructive chronic bronchitis without exacerbation Cerebral palsy, unspecified type (HCC) documented in this encounter [facility] note* Diagnosis Hypothyroidism, acquired Unspecified hypothyroidism documented in this encounter [facility] note* Diagnosis Suspected COVID-19 virus infection documented in this encounter [facility] for referral (narrative)* Diagnostic Procedure Only (Routine) - Closed Specialty Diagnoses / Procedures Referred By Contac Referred To Contact CT IMAGING Diagnoses Lung nodules Procedures CT CHEST WO IVCON DIAGNOSTIC COMPUTED TOMOGRAPHY THORAX W/O CNTRST Usman Patel MD [address] [place] [id number] [facility] Referral ID Status Reason Start Date Expiration Date Visits Re quested Visits Authorized [id number] Closed 11/23/2021 12/23/2021 1 1 [facility] for referral (narrative)* Outpatient Procedure (Routine) - Authorized Specialty Diagnoses / Procedures Referred By Contac t Referred To Contact [facility] Diagnoses SOB (shortness of breath) COPD with chronic bronchitis (HCC) Procedures LUNG VOLUMES Shayna Frias APRN.CNP [address] [place] [address] [address] Referral ID Status Reason Start Date Expiration Date Visits Requested Visits Authorized [id number] Authorized Auto-Generat ed Referral 09/08/2022 07/16/2023 1 1 * Outpatient Procedure (Routine) - Authorized Specialty Diagnoses / Procedures Referred By Dov t Referred To Contact [facility] Diagnoses SOB (shortness of breath) COPD with chronic bronchitis (HCC) Procedures NITRIC OXIDE, EXHALED NITRIC OXIDE GAS DETERMINATION Shayna Frias APRN.CNP [address] [place] [address] [place] [id number] [place] [address] Referral ID Status Reason Start Date Expiration Date Visits Requested Visits Authorized [id number] Authorized Auto-Generat ed Referral 09/08/2022 10/08/2023 1 1 * Outpatient Procedure (Routine) - Authorized Specialty Diagnoses / Procedures Referred By Dov t Referred To Contact [facility] Diagnoses SOB (shortness of breath) COPD with chronic bronchitis (HCC) Procedures SPIROMETRY - BASELINE AND POST DILATOR BRNCDILAT RSPSE SPMTRY PRE&POST-BRNCDILAT ADMN Shayna Frias APRN.MECHANICAL DESIGN ENGINEER [employer] [address] [place] [address] [id number] [place] [address] Referral ID Status Reason Start Date Expiration Date Visits Requested Visits Authorized [id number] Authorized Auto-Generat ed Referral 09/08/2022 10/08/2023 1 1 [facility] for referral (narrative)* Diagnostic Procedure Only (Routine) - Closed Specialty Diagnoses / Procedures Referred By Contac t Referred To Contact [facility] Diagnoses Screening for AAA (abdominal aortic aneurysm) Procedures US SCREENING FOR AAA (2017) US ABDOMINAL AORTA REAL TIME SCREEN STUDY AAA Usman Patel MD [address] [place] [address] [place] [address] Referral ID Status Reason Start Date Expiration Date V isits Requested Visits Authorized [id number] Closed Auto-Generate d Referral 11/14/2022 12/14/2023 1 1 [facility] for referral (narrative)* Outpatient Procedure (Routine) - Authorized Specialty Diagnoses / Procedures Referred By Contac t Referred To Contact [facility] Diagnoses Syncope and collapse Procedures US CAROTID ARTERIES [facility] DUPLEX SCAN EXTRACRANIAL ART COMPL BI STUDY Aiden Mccrary MD [address] [place] [address] [place] [id number] [facility] [place] [id number] Referral ID Status Reason Start Date Expiration Date Visits Requested Visits Authorized [id number] Authorized Auto-Generat ed Referral 08/28/2023 08/27/2024 1 1 * Outpatient Procedure (Routine) - Authorized Specialty Diagnoses / Procedures [facility] Diagnoses Syncope and collapse Palpitations Procedures ECHO ECHO TTHRC R-T 2D W/WOM-MODE COMPL SPEC&COLR D Aiden Mccrary MD [address] [place] [address] [place] [address] [facility] [place] [address] [place] [address] Referral ID Status Reason Start Date Expiration Date Visits Requested Visits Authorized [id number] Authorized Auto-Generat ed Referral 08/28/2023 10/26/2023 2 1 [facility] for referral (narrative)No reason for referral information availableWMartins Ferry Hospital Work Phone: Advance Directives No Advanced Directives Records FoundDocuments on File Type Date Recorded 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 Advance Directive(s) Advance Directive(s) 02/01/2016 9:58 AM Advance Directive(s) 12/25/2015 9:25 AM Documents on File Type Date Recorded 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 Advance Directive(s) Advance Directive(s) 02/01/2016 9:58 AM Advance Directive(s) 12/25/2015 9:25 AM Advance Directive Response Recorded Date/ Time Advance Directives No August 02, 2013 10:12pm Living Will No February 24 7:04pm Power of Mapping Specialist No February 24 023 7:04pm Advance Directive Response Recorded Date/ Time Advance Directives No August 02, 2013 9:12pm Living Will No June 23 8:10pm Power of Mapping Specialist No June 23, 2023 8:10pm Advance Directive Response Recorded Date/ Time Advance Directives No August 02, 2013 10:12pm Advance Directive Response Recorded Date/ Time Advance Directives No May 02, 2025 2:43pm Chief Complaint and Reason for Visit Chief Complaint RIGHT ANKLE INJURY Chief Complaint DIZZINESS Dizziness (cardiology) Dizziness (cardiology) Dizziness (cardiology) Reason for Visit Dizziness Generalized weakness Hx of cerebral palsy Chief Complaint Admit Date PENITENTIARY LAB WORK July 23, 2024 4:50am PENITENTIARY LAB WORK August 20, 2024 5:00am LABWORK September 03, 2024 5:00am PENITENTIARY LAB WORK September 17, 2024 4: 00am Chief Complaint Admit Date PENITENTIARY LAB WORK July 23, 2024 4:50am PENITENTIARY LAB WORK August 20, 2024 5:00am LABWORK September 03, 2024 5:00am PENITENTIARY LAB WORK September 17, 2024 4: 00am PENITENTIARY LAB WORK October 04, 2024 5 :00am Chief Complaint Admit Date PENITENTIARY LAB WORK August 20, 2024 5:00am LABWORK September 03, 2024 5:00am PENITENTIARY LAB WORK September 17, 2024 4: 00am PENITENTIARY LAB WORK October 04, 2024 5 :00am PENITENTIARY LAB WORK October 15, 2024 5: 00am LABWORK November 26, 2024 5:00a m Chief Complaint Admit Date LABWORK September 03, 2024 5:00am PENITENTIARY LAB WORK September 17, 2024 4: 00am PENITENTIARY LAB WORK October 04, 2024 5 :00am PENITENTIARY LAB WORK October 15, 2024 5: 00am PENITENTIARY LAB WORK November 19, 2024 5:00 am LABWORK November 26, 2024 5:00a m Chief Complaint Admit Date PENITENTIARY LAB WORK September 17, 2024 4: 00am PENITENTIARY LAB WORK October 04, 2024 5 :00am PENITENTIARY LAB WORK October 15, 2024 5: 00am Monthly Exam October 15, 2024 5:11 pm PENITENTIARY LAB WORK November 19, 2024 5:00 am LABWORK November 26, 2024 5:00a m Chief Complaint Admit Date PENITENTIARY LAB WORK October 04, 2024 5 :00am PENITENTIARY LAB WORK October 15, 2024 5: 00am Monthly Exam October 15, 2024 5:11 pm PENITENTIARY LAB WORK November 19, 2024 5:00 am LABWORK November 26, 2024 5:00a m PENITENTIARY LAB WORK December 17, 2024 5:0 0am MONTHLY EXAM December 24, 2024 3:15 pm PENITENTIARY LAB WORK January 14, 2025 5:0 0am Chief Complaint Admit Date PENITENTIARY LAB WORK October 15, 2024 5: 00am Monthly Exam October 15, 2024 5:11 pm MONTHLY EXAM November 18, 2024 2:51pm PENITENTIARY LAB WORK November 19, 2024 5:00 am LABWORK November 26, 2024 5:00a m PENITENTIARY LAB WORK December 17, 2024 5:0 0am MONTHLY EXAM December 24, 2024 3:15 pm PENITENTIARY LAB WORK January 07, 2025 5: 00am PENITENTIARY LAB WORK January 14, 2025 5:0 0am Chief Complaint Admit Date MONTHLY EXAM November 18, 2024 2:51pm PENITENTIARY LAB WORK November 19, 2024 5:00 am LABWORK November 26, 2024 5:00a m PENITENTIARY LAB WORK December 17, 2024 5:0 0am MONTHLY EXAM December 24, 2024 3:15 pm PENITENTIARY LAB WORK January 07, 2025 5: 00am PENITENTIARY LAB WORK January 14, 2025 5:0 0am Monthly Exam February 06, 2025 11:2 1am Chief Complaint Admit Date MONTHLY EXAM November 18, 2024 2:51pm PENITENTIARY LAB WORK November 19, 2024 5:00 am LABWORK November 26, 2024 5:00a m PENITENTIARY LAB WORK December 17, 2024 5:0 0am MONTHLY EXAM December 24, 2024 3:15 pm PENITENTIARY LAB WORK January 07, 2025 5: 00am PENITENTIARY LAB WORK January 14, 2025 5:0 0am Monthly Exam February 06, 2025 11:2 1am PENITENTIARY LAB WORK February 18, 2025 5 :00am MONTHLY EXAM February 18, 2025 4:2 3pm Chief Complaint Admit Date MONTHLY EXAM December 24, 2024 3:15 pm PENITENTIARY LAB WORK January 07, 2025 5: 00am PENITENTIARY LAB WORK January 14, 2025 5:0 0am Monthly Exam February 06, 2025 11:2 1am PENITENTIARY LAB WORK February 18, 2025 5 :00am MONTHLY EXAM February 18, 2025 4:2 3pm PENITENTIARY LAB WORK March 18 5:00am PENITENTIARY LAB WORK April 01 5:00am Chief Complaint Admit Date PENITENTIARY LAB WORK January 14, 2025 5:0 0am Monthly Exam February 06, 2025 11:2 1am PENITENTIARY LAB WORK February 18, 2025 5 :00am MONTHLY EXAM February 18, 2025 4:2 3pm PENITENTIARY LAB WORK March 18 5:00am MONTHLY EXAM March 28, 2025 3:11pm PENITENTIARY LAB WORK April 01 5:00am PENITENTIARY LAB WORK April 22, 2025 6:40am Family History No Family History Records Found [...] COMPUTED TOMOGRAPHY THORAX W/O Usman Crandall MD [address] [place] [address] [address] [place] [address] Referral ID Status Reason Start Date Expiration Date V isits Requested Visits Authorized [id number] Closed Auto-Generate d Referral 11/24/2022 12/24/2022 1 1 Summary Purpose Additional Source Comments Source Comments (unrecognize d section and content) In the event this informatio n is protected by the Federal Confidentiality of Alcohol and Drug Abuse Patient Records regulations: The Federal rules restrict any use of the information to criminally investigate or prosecute any alcohol or drug abuse patient.[facility] [place] the event this information is protected by the Federal Confidentiality of Alcohol and Drug Abuse Patient Records regulations: The Federal rules restrict any use of the information to criminally investigate or prosecute any alcohol or drug abuse patient.[facility] [place] the event this information is protected by the Federal Confidentiality of Alcohol and Drug Abuse Patient Records regulations: The Federal rules restrict any use of the information to criminally investigate or prosecute any alcohol or drug abuse patient.[facility] [place] the event this information is protected by the Federal Confidentiality of Alcohol and Drug Abuse Patient Records regulations: The Federal rules restrict any use of the information to criminally investigate or prosecute any alcohol or drug abuse patient.[facility] [place] the event this information is protected by the Federal Confidentiality of Alcohol and Drug Abuse Patient Records regulations: The Federal rules restrict any use of the information to criminally investigate or prosecute any alcohol or drug abuse patient.[facility] [place] the event this information is protected by the Federal Confidentiality of Alcohol and Drug Abuse Patient Records regulations: The Federal rules restrict any use of the information to criminally investigate or prosecute any alcohol or drug abuse patient.[facility] [place] the event this information is protected by the Federal Confidentiality of Alcohol and Drug Abuse Patient Records regulations: The Federal rules restrict any use of the information to criminally investigate or prosecute any alcohol or drug abuse patient.[facility] [place] the event this information is protected by the Federal Confidentiality of Alcohol and Drug Abuse Patient Records regulations: The Federal rules restrict any use of the information to criminally investigate or prosecute any alcohol or drug abuse patient.[facility] [place] the event this information is protected by the Federal Confidentiality of Alcohol and Drug Abuse Patient Records regulations: The Federal rules restrict any use of the information to criminally investigate or prosecute any alcohol or drug abuse patient.[facility] [place] the event this information is protected by the Federal Confidentiality of Alcohol and Drug Abuse Patient Records regulations: The Federal rules restrict any use of the information to criminally investigate or prosecute any alcohol or drug abuse patient.[facility] [place] the event this information is protected by the Federal Confidentiality of Alcohol and Drug Abuse Patient Records regulations: The Federal rules restrict any use of the information to criminally investigate or prosecute any alcohol or drug abuse patient.[facility] [place] the event this information is protected by the Federal Confidentiality of Alcohol and Drug Abuse Patient Records regulations: The Federal rules restrict any use of the information to criminally investigate or prosecute any alcohol or drug abuse patient.[facility] [place] the event this information is protected by the Federal Confidentiality of Alcohol and Drug Abuse Patient Records regulations: The Federal rules restrict any use of the information to criminally investigate or prosecute any alcohol or drug abuse patient.[facility] [place] the event this information is protected by the Federal Confidentiality of Alcohol and Drug Abuse Patient Records regulations: The Federal rules restrict any use of the information to criminally investigate or prosecute any alcohol or drug abuse patient.[facility] [place] the event this information is protected by the Federal Confidentiality of Alcohol and Drug Abuse Patient Records regulations: The Federal rules restrict any use of the information to criminally investigate or prosecute any alcohol or drug abuse patient.[facility] [place] the event this information is protected by the Federal Confidentiality of Alcohol and Drug Abuse Patient Records regulations: The Federal rules restrict any use of the information to criminally investigate or prosecute any alcohol or drug abuse patient.[facility] [place]In the event this information is protected by the Federal Confidentiality of Alcohol and Drug Abuse Patient Records regulations: The Federal rules restrict any use of the information to criminally investigate or prosecute any alcohol or drug abuse patient.[facility] [place]In the event this information is protected by the Federal Confidentiality of Alcohol and Drug Abuse Patient Records regulations: The Federal rules restrict any use of the information to criminally investigate or prosecute any alcohol or drug abuse patient.[facility] [place]In the event this information is protected by the Federal Confidentiality of Alcohol and Drug Abuse Patient Records regulations: The Federal rules restrict any use of the information to criminally investigate or prosecute any alcohol or drug abuse patient.[facility] [place]In the event this information is protected by the Federal Confidentiality of Alcohol and Drug Abuse Patient Records regulations: The Federal rules restrict any use of the information to criminally investigate or prosecute any alcohol or drug abuse patient.[facility] [place]In the event this information is protected by the Federal Confidentiality of Alcohol and Drug Abuse Patient Records regulations: The Federal rules restrict any use of the information to criminally investigate or prosecute any alcohol or drug abuse patient.[facility] OhioIn the event this information is protected by the Federal Confidentiality of Alcohol and Drug Abuse Patient Records regulations: The Federal rules restrict any use of the information to criminally investigate or prosecute any alcohol or drug abuse patient.[facility] [place]In the event this information is protected by the Federal Confidentiality of Alcohol and Drug Abuse Patient Records regulations: The Federal rules restrict any use of the information to criminally investigate or prosecute any alcohol or drug abuse patient.[facility] OhioIn the event this information is protected by the Federal Confidentiality of Alcohol and Drug Abuse Patient Records regulations: The Federal rules restrict any use of the information to criminally investigate or prosecute any alcohol or drug abuse patient.[facility] [place]In the event this information is protected by the Federal Confidentiality of Alcohol and Drug Abuse Patient Records regulations: The Federal rules restrict any use of the information to criminally investigate or prosecute any alcohol or drug abuse patient.[facility] [place]In the event this information is protected by the Federal Confidentiality of Alcohol and Drug Abuse Patient Records regulations: The Federal rules restrict any use of the information to criminally investigate or prosecute any alcohol or drug abuse patient.[facility] [place]In the event this information is protected by the Federal Confidentiality of Alcohol and Drug Abuse Patient Records regulations: The Federal rules restrict any use of the information to criminally investigate or prosecute any alcohol or drug abuse patient.[facility] [place]In the event this information is protected by the Federal Confidentiality of Alcohol and Drug Abuse Patient Records regulations: The Federal rules restrict any use of the information to criminally investigate or prosecute any alcohol or drug abuse patient.[facility] OhioIn the event this information is protected by the Federal Confidentiality of Alcohol and Drug Abuse Patient Records regulations: The Federal rules restrict any use of the information to criminally investigate or prosecute any alcohol or drug abuse patient.[facility] [place]In the event this information is protected by the Federal Confidentiality of Alcohol and Drug Abuse Patient Records regulations: The Federal rules restrict any use of the information to criminally investigate or prosecute any alcohol or drug abuse patient.[facility] [place]In the event this information is protected by the Federal Confidentiality of Alcohol and Drug Abuse Patient Records regulations: The Federal rules restrict any use of the information to criminally investigate or prosecute any alcohol or drug abuse patient.[facility] [place] Reason for Visit (unrecogniz ed section and content) Reason Comments Results Reason Comments Radiology CT Specialty Diagnoses / Procedures Referred By Contac t Referred To Contact CT IMAGING Diagnoses Lung nodules Procedures CT CHEST WO IVCON DIAGNOSTIC COMPUTED TOMOGRAPHY THORAX W/O CNTRST Usman Patel MD [id number] Imaging Referral ID Status Reason Start Date Expiration Date Visits Re quested Visits Authorized [id number] Closed 11/23/2021 12/23/2021 1 1 Reason Onset Date Comments [facility] Monitoring 12/08/2021 Enrollme nt Outreach Reason Onset Date Comments 6 Month Exam Immunizations 05/17/2022 Flu vaccination Reason Comments Forms [facility] Reason Comments Acute Visit upper repiratory Reason Comments Results COVID/flu. Reason Comments Appointment Reason Comments Acute Visit headcold/fatique Reason Comments Spirometry Specialty Diagnoses / Procedures Referred By Contac t Referred To Contact [facility] Diagnoses SOB (shortness of breath) COPD with chronic bronchitis (HCC) Procedures SPIROMETRY - BASELINE AND POST DILATOR BRNCDILAT RSPSE SPMTRY PRE&POST-BRNCDILAT ADMN Shayna Frias APRN.MECHANICAL DESIGN ENGINE[employer] [address] [place] [address] [facility] [place] [address] [place] [id number] Referral ID Status Reason Start Date Expiration Date V isits Requested Visits Authorized [id number] Closed Auto-Generate d Referral 09/08/2022 10/08/2023 1 1 Specialty Diagnoses / Procedures Referred By Contac t Referred To Contact [facility] Diagnoses SOB (shortness of breath) COPD with chronic bronchitis (HCC) Procedures NITRIC OXIDE, EXHALED NITRIC OXIDE GAS DETERMINATION Shayna Frias APRN.MECHANICAL DESIGN ENGINE[employer] [address] [place] [address] [facility] [place] [address] [place] [address] Referral ID Status Reason Start Date Expiration Date V isits Requested Visits Authorized [id number] Closed Auto-Generate d Referral 09/08/2022 10/08/2023 1 1 Specialty Diagnoses / Procedures Referred By Contac t Referred To Contact [facility] Diagnoses SOB (shortness of breath) COPD with chronic bronchitis (HCC) Procedures LUNG VOLUMES Shayna Frias, COLIN.MECHANICAL DESIGN [employer] [address] [place] [address] [facility] [place] [address] [place] [address] Referral ID Status Reason Start Date Expiration Date V isits Requested Visits Authorized [id number] Closed Auto-Generate d Referral 09/08/2022 07/16/2023 1 [...] THORAX W/O CNTRST Usman Patel MD [address] [place] [address] [place] [address] Referral ID Status Reason Start Date Expiration Date V isits Requested Visits Authorized [id number] Closed Auto-Generate d Referral 11/24/2022 12/24/2022 1 1 Reason Comments Radiology US Specialty Diagnoses / Procedures Referred By Contac t Referred To Contact US IMAGING Diagnoses Screening for AAA (abdominal aortic aneurysm) Procedures US SCREENING FOR AAA (2016) US ABDOMINAL AORTA REAL TIME SCREEN STUDY AAA Usman Patel MD [address] [place] [address] Us Imaging [id number] Referral ID Status Reason Start Date Expiration Date V isits Requested Visits Authorized [id number] Closed Auto-Generate d Referral 11/14/2022 12/14/2023 1 1 Reason Onset Date Comments Refill Request 06/01/2023 Reason Comments Patient Update Reason Onset Date Comments Transition Of Care 06/27/2023 Reason Comments Consult Specialty Diagnoses / Procedures Referred By Contac t Referred To Contact Cardiology Diagnoses Syncope and collapse Procedures CONSULT TO CARDIOLOGY OFFICE/OUTPATIENT [facility] 60 MINUTES Temitope Lara PA-C [address] [place] [address] Referral ID Status Reason Start Date Expiration Date V isits Requested Visits Authorized [id number] Closed PCP Requested Referral 07/19/2023 07/18/2024 1 1 Reason Comments Forms Orders from [facility] - 90 day Reason Comments F/U 3 Month Reason Comments Forms [facility] 90 d ay order Reason Onset Date Comments Refill Request 03/04/2024 Reason Comments Med Change Request Reason Comments Forms [facility] Reason Comments Forms 90 day order for [facility] Teams (unrecognized sec tion and content) Genetic Technologist Relationship Specialty Start Date End Date Usman Patel MD [address] [place] [address] PCP - General Family Practice 05/10/21 Genetic Technologist Relationship Specialty Start Date End Date Usman Patel MD [address] [place] [address] PCP - General Family Practice 05/10/21 Genetic Technologist Relationship Specialty Start Date End Date Usman Patel MD [address] [place] [address] PCP - General Family Practice 05/10/21 Genetic Technologist Relationship Specialty Start Date End Date Usman Patel MD [address] [place] [address] PCP - General Family Medicine 05/10/21 Genetic Technologist Relationship Specialty Start Date End Date Usman Patel MD [address] [place] [address] PCP - General Family Medicine 05/10/21 Genetic Technologist Relationship Specialty Start Date End Date Usman Patel MD [address] [place] [address] PCP - General Family Medicine 05/10/21 Genetic Technologist Relationship Specialty Start Date End Date Usman Patel MD [address] [place] [address] PCP - General Family Medicine 05/10/21 Genetic Technologist Relationship Specialty Start Date End Date Usman Patel MD [address] [place] [address] PCP - General Family Medicine 05/10/21 Genetic Technologist Relationship Specialty Start Date End Date Usman Patel MD [address] [place] [address] PCP - General Family Medicine 05/10/21 Genetic Technologist Relationship Specialty Start Date End Date Usman Patel MD [address] [place] [address] PCP - General Family Medicine 05/10/21 Genetic Technologist Relationship Specialty Start Date End Date Usman Patel MD [address] [place] [address] PCP - General Family Medicine 05/10/21 Genetic Technologist Relationship Specialty Start Date End Date Usman Patel MD [address] [place] [address] PCP - General Family Medicine 05/10/21 Team Status: Active Member Role Status Dates Dr. Nakul Lopez III, MD Family Provider Active Dr. Usman Patel MD Primary Care Provider Active Team Status: Inactive Member Role Status Dates Dr. Prince Zimmer DO Emergency Provider Active Dr. Usman Patel MD Primary Care Provider Active Genetic Technologist Relationship Specialty Start Date End Date Usman Patel MD [address] [place] [address] PCP - General Family Medicine 05/10/21 Genetic Technologist Relationship Specialty Start Date End Date Usman Patel MD [address] [place] [address] PCP - General Family Medicine 05/10/21 Genetic Technologist Relationship Specialty Start Date End Date Usman Patel MD [address] [place] [address] PCP - General Family Medicine 05/10/21 Genetic Technologist Relationship Specialty Start Date End Date Usman Patel MD [address] [place] [address] PCP - General Family Medicine 05/10/21 Team [...] Dr. Kike Malave MD Attending Provider Active Genetic Technologist Relationship Specialty Start Date End Date Usman Patel MD [address] [place] [address] PCP - General Family Medicine 05/10/21 Genetic Technologist Relationship Specialty Start Date End Date Usman Patel MD [address] [place] [address] PCP - General Family Medicine 05/10/21 Genetic Technologist Relationship Specialty Start Date End Date Usman Patel MD [address] [place] [address] PCP - General Family Medicine 05/10/21 Genetic Technologist Relationship Specialty Start Date End Date Usman Patel MD [address] [place] [address] PCP - General Family Medicine 05/10/21 Genetic Technologist Relationship Specialty Start Date End Date Usman Patel MD [address] [place] [address] PCP - General Family Medicine 05/10/21 Genetic Technologist Relationship Specialty Start Date End Date Usman Patel MD [address] [place] [address] PCP - General Family Medicine 05/10/21 Genetic Technologist Relationship Specialty Start Date End Date Usman Patel MD [address] [place] [address] PCP - General Family Medicine 05/10/21 Genetic Technologist Relationship Specialty Start Date End Date sUman Patel MD [address] [place] [address] PCP - General Family Medicine 05/10/21 Shayna Frias APRN.CNP [address] [place] [address] [facility] 06/23/24 Team Status: Active Member [...] October 15, 2024 End: October 15, 2024 BETHANIE Casanova Attending Provider [...] Active Start: December 17, 2024 Jolly MÉNDEZ DOCKWORKER-C Attending Provider Active Start: December 17, 2024 [...] Care Provider Active Start: January 14, 2025 Jolly MÉNDEZ, DOCKWORKER-C Attending Provider Active Start: January 14, 2025 Team Status: Inactive Member Role/Relationship Status Dates Dr. Usman Patel MD Primary Care Provider Active Start: October 15, 2024 End: October 15, 2024 Jolly MÉNDEZ, DOCKWORKER-C Attending Provider Active Start: October 15, 2024 [...] 2024 End: November 18, 2024 Jolly Macdonald DOCKWORKER, DOCKWORKER-C Attending Provider Active Start: November 18, 2024 End: November 18, 2024 Team Status: Inactive Member Role/Relationship Status Dates Dr. Usman Patel MD Primary Care Provider Active Start: November 18, 2024 End: November 18, 2024 Jolly Macdonald DOCKWORKER, DOCKWORKER-C Attending Provider Active Start: November 18, 2024 End: November 18, 2024 Team Status: Inactive Member Role/Relationship Status Dates Dr. Usman Patel MD Primary Care Provider Active Start: November 19, 2024 End: November 19, 2024 Jolly MÉNDEZ NP-C Attending [...] Care Provider Active Start: January 14, 2025 Jolly MÉNDEZ NP-C Attending Provider Active Start: January 14, 2025 Team Status: Inactive Member Role/Relationship Status Dates Dr. Usman Patel MD Primary Care Provider Active Start: February 06, 2025 End: February 06, 2025 KAYLIE Walker Attending Provider Active St art: February 06, [...] Attending Provider Active Start: March 18, 2025 Team Status: Active Member Role/Relationship Status Dates Dr. Nakul Lopez III, MD Primary care physician Activ e Dr. Usman Patel MD Primary care physician Active Team Status: Inactive Member Role/Relationship Status Dates Dr. Usman Patel MD Primary care physician Active Start: December 24, 2024 End: December 24, 2024 Dr. Micaela Holder MD Attending physician Active Start: December 24, 2024 End: December 24, 2024 Team Status: Active Member Role/Relationship Status Dates Dr. Usman Patel MD Primary care physician Active Start: January 07, 2025 Micaela MÉNDEZ MD Attending physician Active Start: January 07, 2025 Team Status: Inactive Member Role/Relationship Status Dates Dr. Usman Patel MD Primary care physician Active Start: January 14, 2025 End: January 14, 2025 BETHANIE Casanova Attending physician Active Start: January 14, 2025 End: January 14, 2025 Team Status: Inactive Member Role/Relationship Status Dates Dr. Usman Patel MD Primary care physician Active Start: February 06, 2025 End: February 06, 2025 KAYLIE Walker Attending physician Active S tart: February 06, 2025 End: February 06, 2025 Team Status: Active Member Role/Relationship Status Dates Dr. Usman Patel MD Primary care physician Active Start: February 18, 2025 Micaela MÉNDEZ MD Attending physician Active Start: February 18, 2025 Team Status: Inactive Member Role/Relationship Status Dates Dr. Usman Patel MD Primary care physician Active Start: February 18, 2025 End: February 18, 2025 Dr. Micaela Holder MD Attending physician Active Start: February 18, 2025 End: February 18, 2025 Team Status: Active Member Role/Relationship Status Dates Dr. Usman Patel MD Primary care physician Active Start: March 18, 2025 BETHANIE Casanova Attending physician Active Start: March 18, 2025 Team Status: Active Member Role/Relationship Status Dates Dr. Usman Patel MD Primary care physician Active Start: April 01, 2025 Jolly MÉNDEZ, DOCKWORKER-C Attending physician Active Start: April 01, 2025 Team Status: Inactive Member Role/Relationship Status Dates Dr. Usman Patel MD Primary care physician Active Start: January 14, 2025 End: January 14, 2025 Jolly MÉNDEZ, DOCKWORKER-C Attending physician Active Start: January 14, 2025 End: January 14, 2025 Team Status: Inactive Member Role/Relationship Status Dates Dr. Usman Patel MD Primary care physician Active Start: February 06, 2025 End: February 06, 2025 KAYLIE Walker Attending physician Active S tart: February 06, 2025 End: February 06, 2025 Team Status: Active Member Role/Relationship Status Dates Dr. Usman Patel MD Primary care physician Active Start: February 18, 2025 Micaela MÉNDEZ MD Attending physician Active Start: February 18, 2025 Team Status: Inactive Member Role/Relationship Status Dates Dr. Usman Patel MD Primary care physician Active Start: February 18, 2025 End: February 18, 2025 Dr. Micaela Holder MD Attending physician Active Start: February 18, 2025 End: February 18, 2025 Team Status: Active Member Role/Relationship Status Dates Dr. Usman Patel MD Primary care physician Active Start: March 18, 2025 Jolly MÉNDEZ, DOCKWORKER-C Attending physician Active Start: March 18, 2025 Team Status: Inactive Member Role/Relationship Status Dates Dr. Usman Patel MD Primary care physician Active Start: March 28, 2025 End: March 28, 2025 Jolly Macdonald NP, DOCKWORKER-C Attending physician Active Start: March 28, 2025 End: March 28, 2025 Team Status: Active Member Role/Relationship Status Dates Dr. Usman Patel MD Primary care physician Active Start: April 01, 2025 Jolly MÉNDEZ, DOCKWORKER-C Attending physician Active Start: April 01, 2025 Team Status: Active Member Role/Relationship Status Dates Dr. Usman Patel MD Primary care physician Active Start: April 22, 2025 Jolly MÉNDEZ, DOCKWORKER-C Attending physician Active Start: April 22, 2025 Team Status: Active Member Role/Relationship Status Dates Dr. Usman Patel MD Primary care physician Active Start: May 13, 2025 Micaela MÉNDEZ MD Attending physician Active Start: May 13, 2025 Goals (unrecognized section and content) Goals [...] section and content) DATE CREATED AUTHOR 10/06/2023 [facility] DATE CREATED AUTHOR AUTHOR'S ORGANIZ ATION 07/05/2024 [facility] DATE CREATED AUTHOR AUTHOR'S ORGANIZ ATION 05/20/2025 [facility] FOR RECORDS PERTAINING TO PATIENTS WHO [...] BE BASED ON THE PRIMARY CLINICAL RECORDS. [employer] provides no warranty or guarantee of the accuracy or completeness of information in this document.
[2025-05-20 09:18] LABS: Vitamin B12 430 pg/mL (180-914)
[2025-05-20 09:19] LABS: AST(SGOT) 18 U/L (<=37); Alanine Aminotransfer ALT/SGPT 12 U/L (<=46); Albumin, Serum 3.6 g/dL (3.4-4.8); Alkaline Phosphatase 97 U/L (40-129); Bilirubin, Direct < 0.08 mg/dL (0.00-0.30); Globulin 2.9 g/dL (2.2-4.2)
== END ==
LOC: OLS.WHLEAS 05:00
PROVIDERS: PCP Family Medicine; Visit Provider Nurse Practitioner Adult Health
DX: R48.8 Other symbolic dysfunctions (principal); G80.9 Cerebral palsy, unspecified
CPT/HCPCS: 36415; 80076; 82607

== ENCOUNTER → 2025-06-17 05:00 | Outpatient (REF) | payer MEDICARE, MEDICAID, SELFPAY ==
--- OUTSIDE RECORDS SUMMARY | 2025-06-17 03:43 | XMS RPT_ITS | CCD ---
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 Wilks Primary Care Provider Gallo TRIPATHI, Micaela Attending Provider Unavailoscar Holder MD, Micaela Referring Provider Sara Patel MD, Dr. Wilks Primary Care Provider [phone] Gallo TRIPATHI, Micaela Attending Provider Sara Patel MD, Dr. Wilks Primary Care Provider [phone] Gallo TRIPATHI, Micaela Attending Provider Sara Holder MD, Dr. Hinojosa Attending Provider [phone] Jorge TRIPATHI, Dr. Wilks Primary Care Provider Gallo TRIPATHI, Micaela Attending Provider Unavailoscar Patel MD, Dr. Wilks Primary Care Provider [phone] Renae RN HEMO DIALYSIS-C, Jolly Attending Provider Gallo TRIPATHI, Micaela Attending Provider Sara Patel MD, Dr. Wilks Primary Care Provider [phone] Renae RN HEMO DIALYSIS-C, Jolly Attending Provider [phone] Gallo TRIPATHI, Dr. Hinojosa Attending Provider [phone] Poornima Holden Attending Provider Dr. Usman Patel MD Primary Care Physician Gallo TRIPATHI, Dr. Hinojosa Attending Physician [phone] Micaela Holder MD Attending Physician Unavail able Renae RN HEMO DIALYSIS-C, Jolly Attending Physician Poornima Holden Attending Physician Jorge TRIPATHI, Dr. Wilks Primary Care Physician Micaela Holder MD Attending Physician Unavail maricarmen Holder MD, Dr. Hinojosa Attending Physician [phone] Renae RN HEMO DIALYSIS-CJolly Attending Physician Gallo Efewongbe Attending Unavailable [place]brock, Usman Primary Care Unavailable Tickmonse RN HEMO DIALYSISJolly Attending Unavailable Elderbrock, Usman Primary Care Unavailable [...] Unavailable Oleghe OLS, Efewongbe Attending Unavailabl e Poornima Holden Attending Unavailable [place]brock, Usman Primary Care Unavailable Tickton RN HEMO DIALYSISJolly Attending Unavailable [place]brock, Usman Primary Care Unavailable Elderbrock, Usman Primary Care Unavailable Tickton Jolly MÉNDEZ Attending Unavailable Oleghe OLS, Efewongbe Referring Unavailabl e Elderbrock, [...] e Oleghe OLS, Efewongbe Attending Unavailabl e Tickton OLSJolly Attending Unavailable [place], Usman Primary Care Unavailable Oleghe OLS, Efewongbe Attending Unavailabl e Elderbrock, Usman Primary Care Unavailable Oleghe OLS, Efewongbe Attending Unavailabl e [place]brock, Usman Primary Care Unavailable Tickton OLSJolly Attending Unavailable [place]brock, Usman Primary Care Unavailable Oleghe OLS, Efewongbe Attending Unavailabl e Elderbrock, Usman Primary Care Unavailable Allergies Allergy Classification Reported Allergen(s) Allergy Type Date of Onset Reaction(s) Facility (20 sources) Seasonal allergy; Translations: [SEASONAL ALLERGIES] Allergy to substance 2 Other: See Comments [facility] Medications Current Medications Medication Drug Class(es) Dates Sig (Normalized) Sig (Original) [id number] 200 actuat albuterol 0.09 mg/actuat metered dose [...] evening docusate sodium 50 mg / sennosides, senior care 8.6 mg oral tablet (11 sources) Start: [...] on above: Take 1 tablet by cj twice daily for 10 days. ergocalciferol 1.25 [...] 11/08/2021 Discontinued Start: 09-01-2017 End: 06-23-2023 Ipratropium [place] 1 SPRAY spray,non-aerosol Discontinued 2 NMA NASAL THREE TIMES A DAY 1 0 September 01, 2017 1:00am June 23, 2023 9:21pm Start: 09-01-2017 End: 06-23-2023 Ipratropium [place] Disconti nued 2 SPRAY NASAL THREE TIMES A DAY September 01, 2017 12:00am June 23, 2023 [...] Comment on above: Take 1 tablet by [facility] once daily. Take on empty stomach. For [...] on 05-13-2025 TSH Qn 2.140 uIU/mL 0.300-4.200 [facility] Bilirubin directOrdered By: Jolly Macdonald on 04-22-2025 Bilirubin.direct [Mass/Vol] 0.09 mg/dL 0.00-0.30 [facility] Bilirubin, totalOrdered By: Jolly Macdonald on 04-22-2025 Bilirubin [Mass/Vol] 0.24 mg/dL 0.00-1.30 [facility] - Chemistry and C hemistry - challengeOrdered By: Jolly Macdonald on 04-22-2025 AST [Catalytic activity/Vol] 18 U/L <38 [facility] Serum globulin measurementOr dered By: Jolly Macdonald on 04-22-2025 Globulin (S) [Mass/Vol] 3.0 g/dL 2.2-4.[address] [facility] Serum or plasma alanine ty otransferase (ALT) measurementOrdered By: Jolly Macdonald on 04-22-2025 ALT [Catalytic activity/Vol] 12 U/L <47 [facility] Serum or plasma albumin marvin urement (mass/volume)Ordered By: Jolly Macdonald on 04-22-2025 Albumin [Mass/Vol] 3.7 g/dL 3.4-4.8 [facility] Serum or plasma alkaline macho sphatase measurementOrdered By: Jolly Macdonald on 04-22-2025 ALP [Catalytic activity/Vol] 106 U/L 40-129 [facility] Total proteinOrdered By: Salvador Macdonald on 04-22-2025 Protein [Mass/Vol] 6.6 g/dL 5.9-8.4 [facility] Vitamin B12 ser/plasOrdered By: Jolly Macdonald on 04-22-2025 Cobalamin (Vitamin B12) [Mass/Vol] 383 pg/mL 180-914 [facility] TSH DL <= 0.005 mIU/L QnOrde red By: Jolly Macdonald on 04-01-2025 TSH Qn 2.880 uIU/mL 0.300-4.200 [facility] Bilirubin directOrdered By: Jolly Macdonald on 03-18-2025 Bilirubin.direct [Mass/Vol] 0.12 mg/dL 0.00-0.30 [facility] Bilirubin, totalOrdered By: Jolly Macdonald on 03-18-2025 Bilirubin [Mass/Vol] 0.24 mg/dL 0.00-1.30 [facility] - Chemistry and C hemistry - challengeOrdered By: Jolly Macdonald on 03-18-2025 AST [Catalytic activity/Vol] 18 U/L <38 [facility] Serum globulin measurementOr dered By: Jolly Macdonald on 03-18-2025 Globulin (S) [Mass/Vol] 3.0 g/dL 2.2-4.[address] [facility] Serum or plasma alanine ty otransferase (ALT) measurementOrdered By: Jolly Macdonald on 03-18-2025 ALT [Catalytic activity/Vol] 15 U/L <47 [facility] Serum or plasma albumin marvin urement (mass/volume)Ordered By: Jolly Macdonald on 03-18-2025 Albumin [Mass/Vol] 3.5 g/dL 3.4-4.8 [facility] Serum or plasma alkaline macho sphatase measurementOrdered By: Jolly Macdonald on 03-18-2025 ALP [Catalytic activity/Vol] 67 U/L 40-129 [facility] Total proteinOrdered By: Salvador Macdonald on 03-18-2025 Protein [Mass/Vol] 6.5 g/dL 5.9-8.4 [facility] Vitamin B12 ser/plasOrdered By: Jolly Macdonald on 03-18-2025 Cobalamin (Vitamin B12) [Mass/Vol] 450 pg/mL 180-914 [facility] Absolute lymphocyte countOrd ered By: Micaela Holder on 02-18-2025 Lymphocytes Auto (Unsp spec) [#/Vol] 1.71 10*3/uL 0.83-4.51 [facility] Absolute neutrophil countOrd ered By: Micaela Holder on 02-18-2025 Neutrophils (Bld) [#/Vol] 3.2 10*3/uL 2.0-7.7 [facility] Anion gap in Serum or Plasma Ordered By: Micaela Holder on 02-18-2025 Anion gap [Moles/Vol] 11 mmol/L 5-15 [facility] Automated lymphocyte count a s percentage of total leukocytesOrdered By: Micaela Holder on 02-18-2025 Lymphocytes/100 WBC Auto (Unsp spec) 28.4 % 19-41 [facility] BUN/creatinine ratioOrdered By: Micaela Holder on 02-18-2025 Urea nitrogen/Creatinine [Mass ratio] 18.7 mg/mg 10-20 [facility] Basophil percentageOrdered B y: Micaela Holder on 02-18-2025 Basophils/100 WBC (Bld) 0.8 % 0-[address] [facility] Bilirubin directOrdered By: Micaela Holder on 02-18-2025 Bilirubin.direct [Mass/Vol] 0.09 mg/dL 0.00-0.30 [facility] Bilirubin, totalOrdered By: Micaela Holder on 02-18-2025 Bilirubin [Mass/Vol] 0.21 mg/dL 0.00-1.30 [facility] Carbon dioxide, total [Moles /volume] in Central venous bloodOrdered By: Micaela Holder on 02-18-2025 CO2 [Moles/Vol] 20.9 mmol/L Low 21.0-32.0 [facility] Chloride assayOrdered By: Mylene Holder on 02-18-2025 Chloride [Moles/Vol] 108 mmol/L 98-108 [facility] Eosinophil percentageOrdered By: Micaela Holder on 02-18-2025 Eosinophils/100 WBC (Bld) 5.1 % High 0-5 [facility] Erythrocyte distribution wid th ratioOrdered By: Micaela Holder on 02-18-2025 Erythrocyte distribution width (RBC) [Ratio] 12.9 % 11.6-14.6 [facility] Erythrocyte distribution wid th standard deviationOrdered By: Micaela Holder on 02-18-2025 Erythrocyte distribution width (RBC) [Ratio] 47.1 fl High 35.1-43.9 [facility] Glomerular filtration rate ( GFR) estimation/1.73 sq m using serum, plasma, or whole bOrdered By: Micaela Holder on 02-18-2025 GFR/1.73 sq M.predicted among non-blacks MDRD (S/P/Bld) [Vol rate/Area] 74 mL/min/{1.73_m2} >60 [facility] Comment on above: mL/min/1.73m2 CKD-EP I Creatinine Equation (2020) Hematocrit Auto (Bld) [Volum e fraction]Ordered By: Micaela Holder on 02-18-2025 Hematocrit (Bld) [Volume fraction] 35.9 % Low 40-54 [facility] Hemoglobin measurementOrdere d By: Micaela Holder on 02-18-2025 Hemoglobin (Bld) [Mass/Vol] 11.8 g/dL Low 13.0-16.5 [facility] Immature granulocytes/100 WB C Auto (Bld)Ordered By: Micaela Holder on 02-18-2025 Immature granulocytes/100 WBC (Bld) 0.300 % 0.0-0.9 [facility] Comment on above: IG% - Immature Granu locytes (promyelocytes, myelocytes and metamyelocytes) > 1% indicates that a LEFT SHIFT is Present. Laboratory - Chemistry and C hemistry - challengeOrdered By: Micaela Holder on 02-18-2025 AST [Catalytic activity/Vol] 16 U/L <38 [facility] LevetiracetamOrdered By: Frank Holder on 02-18-2025 levETIRAcetam [Mass/Vol] 16.9 ug/mL 10.0-40.0 [facility] Comment on above: Performed at: [address] [id number] Director: Daniel Bailey MD, Phone: [phone] MCV (mean corpuscular volume ) determinationOrdered By: Micaela Holder on 02-18-2025 MCV (RBC) [Entitic vol] 98.6 fL High 80-[address] [facility] Mean corpuscular hemoglobin (MCH) determinationOrdered By: Micaela Holder on 02-18-2025 MCH (RBC) [Entitic mass] 32.4 pg High 27.0-32.0 [facility] Mean corpuscular hemoglobin concentration (MCHC) determinationOrdered By: Micaela Holder on 02-18-2025 MCHC (RBC) [Mass/Vol] 32.9 g/dL 32-36 [facility] Mean platelet volume determi nationOrdered By: Micaela Holder on 02-18-2025 Platelet mean volume (Bld) [Entitic vol] 9.9 fL 6.2-12.0 [facility] Monocyte percentageOrdered B y: Micaela Holder on 02-18-2025 Monocytes/100 WBC (Bld) 11.6 % High 0-[address] [facility] Neutrophil percentageOrdered By: Micaela Holder on 02-18-2025 Neutrophils/100 WBC (Bld) 53.8 % 47-70 [facility] Nucleated red blood cell per centageOrdered By: Micaela Holder on 02-18-2025 Nucleated RBC/100 WBC (Bld) [Ratio] 0 % 0-5 [facility] Platelet countOrdered By: Mylene Holder on 02-18-2025 Platelets (Bld) [#/Vol] 243 10*3/uL 150-450 [facility] Potassium measurement (mass/ volume)Ordered By: Micaela Holder on 02-18-2025 Potassium (Unsp spec) [Mass/Vol] 4.2 mmol/L 3.3-5.1 [facility] RBC Auto (Bld) [#/Vol]Ordere d By: Micaela Holder on 02-18-2025 RBC (Bld) [#/Vol] 3.64 10*6/uL Low 4.6-6.2 [facility] Serum creatinine measurement (mass/volume)Ordered By: Mciaela Holder on 02-18-2025 Creatinine [Mass/Vol] 1.06 mg/dL 0.70-1.20 [facility] Serum globulin measurementOr dered By: Micaela Holder on 02-18-2025 Globulin (S) [Mass/Vol] 2.9 g/dL 2.2-4.2 [facility] Serum glucose measurement (m ass/volume)Ordered By: Micaela Holder on 02-18-2025 Glucose [Mass/Vol] 103 mg/dL High 70-99 [facility] Serum or plasma alanine ty otransferase (ALT) measurementOrdered By: Micaela Holder on 02-18-2025 ALT [Catalytic activity/Vol] 16 U/L <47 [facility] Serum or plasma albumin marvin urement (mass/volume)Ordered By: Micaela Holder on 02-18-2025 Albumin [Mass/Vol] 3.7 g/dL 3.4-4.8 [facility] Serum or plasma alkaline macho sphatase measurementOrdered By: Micaela Holder on 02-18-2025 ALP [Catalytic activity/Vol] 76 U/L 40-129 [facility] Serum or plasma calcium marvin urement (mass/volume)Ordered By: Micaela Holder on 02-18-2025 Calcium [Mass/Vol] 8.9 mg/dL 7.6-11.0 [facility] Serum or plasma carbamazepin e level (mass/volume)Ordered By: Micaela Holder 02-18-2025 carBAMazepine [Mass/Vol] 10.7 ug/mL 4.0-12.0 [facility] Serum or plasma urea nitroge n measurement (mass/volume)Ordered By: Micaela Holder on 02-18-2025 Urea nitrogen [Mass/Vol] 20 mg/dL High 4-19 [facility] Sodium levelOrdered By: Jose Holder on 02-18-2025 Sodium [Moles/Vol] 140 mmol/L 133-145 [facility] TSH DL <= 0.005 mIU/L QnOrde red By: Micaela Holder on 02-18-2025 TSH Qn 4.240 uIU/mL High 0.300-4.200 [facility] Total proteinOrdered By: Frank Holder 02-18-2025 Protein [Mass/Vol] 6.6 g/dL 5.9-8.4 [facility] Vitamin B12 ser/plasOrdered By: Micaela Holder on 02-18-2025 Cobalamin (Vitamin B12) [Mass/Vol] 429 pg/mL 180-914 [facility] White blood cell (WBC) count Ordered By: Micaela Holder 02-18-2025 WBC (Bld) [#/Vol] 6.0 10*3/uL 4.4-11.0 [facility] Bilirubin directOrdered By: Jolly Macdonald on 01-14-2025 Bilirubin.direct [Mass/Vol] mg/dL 0.00-0.30 [facility] Bilirubin, totalOrdered By: Jolly Macdonald on 01-14-2025 Bilirubin [Mass/Vol] 0.18 mg/dL 0.00-1.30 [facility] - Chemistry and C hemistry - challengeOrdered By: Jolly Macdonald on 01-14-2025 AST [Catalytic activity/Vol] 19 U/L <38 [facility] LevetiracetamOrdered By: Salvador Macdonald on 01-14-2025 levETIRAcetam [Mass/Vol] 15.6 ug/mL 10.0-40.0 [facility] Comment on above: Performed at: [address] [id number] Director: Daniel Bailey MD, Phone: [phone] Serum globulin measurementOr dered By: Jolly Macdonald on 01-14-2025 Globulin (S) [Mass/Vol] 2.9 g/dL 2.2-4.[address] [facility] Serum or plasma alanine ty otransferase (ALT) measurementOrdered By: Jolly Macdonald on 01-14-2025 ALT [Catalytic activity/Vol] 14 U/L <47 [facility] Serum or plasma albumin marvin urement (mass/volume)Ordered By: Jolly Macdonald on 01-14-2025 Albumin [Mass/Vol] 3.5 g/dL 3.4-4.8 [facility] Serum or plasma alkaline macho sphatase measurementOrdered By: Jolly Macdonald on 01-14-2025 ALP [Catalytic activity/Vol] 79 U/L 40-129 [facility] Serum or plasma carbamazepin e level (mass/volume)Ordered By: Jolly Macdonald on 01-14-2025 carBAMazepine [Mass/Vol] 10.8 ug/mL 4.0-12.0 [facility] Total proteinOrdered By: Salvador Macdonald on 01-14-2025 Protein [Mass/Vol] 6.5 g/dL 5.9-8.4 [facility] Vitamin B12 ser/plasOrdered By: Jolly Macdonald on 01-14-2025 Cobalamin (Vitamin B12) [Mass/Vol] 431 pg/mL 180-914 [facility] TSH DL <= 0.005 mIU/L QnOrde red By: Micaela Casianoazalea on 01-07-2025 TSH Qn 3.420 uIU/mL 0.300-4.200 [facility] Bilirubin directOrdered By: Jolly Macdonald on 12-17-2024 Bilirubin.direct [Mass/Vol] mg/dL 0.00-0.30 [facility] Bilirubin, totalOrdered By: Jolly Macdonald on 12-17-2024 Bilirubin [Mass/Vol] 0.19 mg/dL 0.00-1.30 [facility] - Chemistry and C hemistry - challengeOrdered By: Jolly Macdonald on 12-17-2024 AST [Catalytic activity/Vol] 18 U/L <38 [facility] Serum globulin measurementOr dered By: Jolly Macdonald on 12-17-2024 Globulin (S) [Mass/Vol] 2.9 g/dL 2.2-4.[address] [facility] Serum or plasma alanine ty otransferase (ALT) measurementOrdered By: Jolly Macdonald on 12-17-2024 ALT [Catalytic activity/Vol] 18 U/L <47 [facility] Serum or plasma albumin marvin urement (mass/volume)Ordered By: Jolly Macdonald on 12-17-2024 Albumin [Mass/Vol] 3.7 g/dL 3.4-4.8 [facility] Serum or plasma alkaline macho sphatase measurementOrdered By: Jolly Macdonald on 12-17-2024 ALP [Catalytic activity/Vol] 85 U/L 40-129 [facility] Total proteinOrdered By: Salvador Macdonald on 12-17-2024 Protein [Mass/Vol] 6.6 g/dL 5.9-8.4 [facility] Vitamin B12 ser/plasOrdered By: Jolly Macdonald on 12-17-2024 Cobalamin (Vitamin B12) [Mass/Vol] 455 pg/mL 180-914 [facility] TSH DL <= 0.005 mIU/L QnOrde red By: Micaela Gallo on 11-26-2024 TSH Qn 3.470 uIU/mL 0.300-4.200 [facility] Bilirubin directOrdered By: Jolly Macdonald on 11-19-2024 Bilirubin.direct [Mass/Vol] 0.11 mg/dL 0.00-0.30 [facility] Bilirubin, totalOrdered By: Jolly Macdonald on 11-19-2024 Bilirubin [Mass/Vol] 0.20 mg/dL 0.00-1.30 [facility] - Chemistry and C hemistry - challengeOrdered By: Jolly Macdonald on 11-19-2024 AST [Catalytic activity/Vol] 18 U/L <38 [facility] Serum globulin measurementOr dered By: Jolly Macdonadl on 11-19-2024 Globulin (S) [Mass/Vol] 3.1 g/dL 2.2-4.[address] [facility] Serum or plasma alanine ty otransferase (ALT) measurementOrdered By: Jolly Macdonald on 11-19-2024 ALT [Catalytic activity/Vol] 12 U/L <47 [facility] Serum or plasma albumin marvin urement (mass/volume)Ordered By: Jolly Macdonald on 11-19-2024 Albumin [Mass/Vol] 3.6 g/dL 3.4-4.8 [facility] Serum or plasma alkaline macho sphatase measurementOrdered By: Jolly Macdonald on 11-19-2024 ALP [Catalytic activity/Vol] 75 U/L 40-129 [facility] Total proteinOrdered By: Salvador Macdonald on 11-19-2024 Protein [Mass/Vol] 6.7 g/dL 5.9-8.4 [facility] Vitamin B12 ser/plasOrdered By: Jolly Macdonald on 11-19-2024 Cobalamin (Vitamin B12) [Mass/Vol] 521 pg/mL 180-914 [facility] Absolute lymphocyte countOrd ered By: Jolly Macdonald on 10-15-2024 Lymphocytes Auto (Unsp spec) [#/Vol] 1.44 10*3/uL 0.83-4.51 [facility] Absolute neutrophil countOrd ered By: Jolly Macdonald on 10-15-2024 Neutrophils (Bld) [#/Vol] 2.5 10*3/uL 2.0-7.7 [facility] Anion gap in Serum or Plasma Ordered By: Jolly Macdonald on 10-15-2024 Anion gap [Moles/Vol] 11 mmol/L 5-15 [facility] Automated lymphocyte count a s percentage of total leukocytesOrdered By: Jolly Macdonald on 10-15-2024 Lymphocytes/100 WBC Auto (Unsp spec) 28.9 % 19-41 [facility] BUN/creatinine ratioOrdered By: Jolly Macdonald on 10-15-2024 Urea nitrogen/Creatinine [Mass ratio] 12.1 mg/mg 10-20 [facility] Basophil percentageOrdered B y: Jolly Macdonald on 10-15-2024 Basophils/100 WBC (Bld) 0.8 % 0-[address] [facility] Bilirubin directOrdered By: Jolly Macdonald on 10-15-2024 Bilirubin.direct [Mass/Vol] 0.09 mg/dL 0.00-0.30 [facility] Bilirubin, totalOrdered By: Jolly Macdonald on 10-15-2024 Bilirubin [Mass/Vol] 0.24 mg/dL 0.00-1.30 [facility] Carbon dioxide, total [Moles /volume] in Central venous bloodOrdered By: Jolly Macdonald on 10-15-2024 CO2 [Moles/Vol] 21.3 mmol/L 21.0-32.0 [facility] Chloride assayOrdered By: Saroj Macdonald on 10-15-2024 Chloride [Moles/Vol] 108 mmol/L 98-108 [facility] Eosinophil percentageOrdered By: Jolly Macdonald on 10-15-2024 Eosinophils/100 WBC (Bld) 7.6 % High 0-5 [facility] Erythrocyte distribution wid th (RBC) [Ratio]Ordered By: Jolly Macdonald on 10-15-2024 Erythrocyte distribution width (RBC) [Entitic vol] 45.4 fL High 35.1-43.9 [facility] Erythrocyte distribution wid th ratioOrdered By: Jolly Macdonald on 10-15-2024 Erythrocyte distribution width (RBC) [Ratio] 12.7 % 11.6-14.6 [facility] Erythrocyte distribution wid th standard deviationOrdered By: Jolly Macdonald on 10-15-2024 Erythrocyte distribution width (RBC) [Ratio] 45.4 fl High 35.1-43.9 [facility] GFR/1.73 sq M.predicted yang g non-blacks MDRD (S/P/Bld) [Vol rate/Area]Ordered By: Jolly Macdonald on 10-15-2024 Estimated GFR (MDRD) Non-Af Amer 78 >60 [facility] Comment on above: mL/min/1.73m2 CKD-EP I Creatinine Equation (2020) Glomerular filtration rate ( GFR) estimation/1.73 sq m using serum, plasma, or whole bOrdered By: Jolly Macdonald on 10-15-2024 GFR/1.73 sq M.predicted among non-blacks MDRD (S/P/Bld) [Vol rate/Area] 78 mL/min/{1.73_m2} >60 [facility] Comment on above: mL/min/1.73m2 CKD-EP I Creatinine Equation (2020) Hematocrit Auto (Bld) [Volum e fraction]Ordered By: Jolly Macdonald on 10-15-2024 Hematocrit (Bld) [Volume fraction] 33.6 % Low 40-54 [facility] Hemoglobin measurementOrdere d By: Jolly Macdonald on 10-15-2024 Hemoglobin (Bld) [Mass/Vol] 11.0 g/dL Low 13.0-16.5 [facility] Immature granulocytes/100 WB C Auto (Bld)Ordered By: Jolly Macdonald on 10-15-2024 Immature granulocytes/100 WBC (Bld) 0.400 % 0.0-0.9 [facility] Comment on above: IG% - Immature Granu locytes (promyelocytes, myelocytes and metamyelocytes) > 1% indicates that a LEFT SHIFT is Present. Laboratory - Chemistry and C hemistry - challengeOrdered By: Jolly Macdonald on 10-15-2024 AST [Catalytic activity/Vol] 19 U/L <38 [facility] Lymphocytes Auto (Unsp spec) [#/Vol]Ordered By: Jolly Macdonald on 10-15-2024 Lymphocytes (Bld) [#/Vol] 1.44 10*3/uL 0.83-4.51 [facility] Lymphocytes/100 WBC Auto (Un sp spec)Ordered By: Jolly Macdonald on 10-15-2024 Lymphocytes/100 WBC (Bld) 28.9 % 19-41 [facility] MCV (mean corpuscular volume ) determinationOrdered By: Jolly Macdonald on 10-15-2024 MCV (RBC) [Entitic vol] 98.2 fL High 80-[address] [facility] Mean corpuscular hemoglobin (MCH) determinationOrdered By: Jolly Macdonald on 10-15-2024 MCH (RBC) [Entitic mass] 32.2 pg High 27.0-32.0 [facility] Mean corpuscular hemoglobin concentration (MCHC) determinationOrdered By: Jolly Macdonald on 10-15-2024 MCHC (RBC) [Mass/Vol] 32.7 g/dL 32-36 [facility] Mean platelet volume determi nationOrdered By: Jolly Macdonald on 10-15-2024 Platelet mean volume (Bld) [Entitic vol] 10.4 fL 6.2-12.0 [facility] Monocyte percentageOrdered B y: Jolly Macdonald on 10-15-2024 Monocytes/100 WBC (Bld) 13.1 % High 0-[address] [facility] Neutrophil percentageOrdered By: Jolly Macdonald on 10-15-2024 Neutrophils/100 WBC (Bld) 49.2 % 47-70 [facility] Nucleated red blood cell per centageOrdered By: Jolly Macdonald on 10-15-2024 Nucleated RBC/100 WBC (Bld) [Ratio] 0 % 0-5 [facility] Platelet countOrdered By: Saroj Macdonald on 10-15-2024 Platelets (Bld) [#/Vol] 226 10*3/uL 150-450 [facility] Potassium (Unsp spec) [Mass/ Vol]Ordered By: Jolly Macdonald on 10-15-2024 Potassium [Moles/Vol] 4.0 mmol/L 3.3-5.1 [facility] Potassium measurement (mass/ volume)Ordered By: Jolly Macdonald on 10-15-2024 Potassium (Unsp spec) [Mass/Vol] 4.0 mmol/L 3.3-5.1 [facility] RBC Auto (Bld) [#/Vol]Ordere d By: Jolly Macdonald on 10-15-2024 RBC (Bld) [#/Vol] 3.42 10*6/uL Low 4.6-6.2 [facility] Serum creatinine measurement (mass/volume)Ordered By: Jolly Macdonald on 10-15-2024 Creatinine [Mass/Vol] 1.01 mg/dL 0.70-1.20 [facility] Serum globulin measurementOr dered By: Jolly Macdonald on 10-15-2024 Globulin (S) [Mass/Vol] 2.9 g/dL 2.2-4.[address] [facility] Serum glucose measurement (m ass/volume)Ordered By: Jolly Macdonald on 10-15-2024 Glucose [Mass/Vol] 102 mg/dL High 70-99 [facility] Serum or plasma alanine ty otransferase (ALT) measurementOrdered By: Jolly Macdonald on 10-15-2024 ALT [Catalytic activity/Vol] 15 U/L <47 [facility] Serum or plasma albumin marvin urement (mass/volume)Ordered By: Jolly Macdonald on 10-15-2024 Albumin [Mass/Vol] 3.5 g/dL 3.4-4.8 [facility] Serum or plasma alkaline macho sphatase measurementOrdered By: Jolly Macdonald on 10-15-2024 ALP [Catalytic activity/Vol] 79 U/L 40-129 [facility] Serum or plasma calcium marvin urement (mass/volume)Ordered By: Jolly Macdonald on 10-15-2024 Calcium [Mass/Vol] 8.6 mg/dL 7.6-11.0 [facility] Serum or plasma urea nitroge n measurement (mass/volume)Ordered By: Jolly Macdonald on 10-15-2024 Urea nitrogen [Mass/Vol] 12 mg/dL 4-19 [facility] Sodium levelOrdered By: Larissa Macdonald on 10-15-2024 Sodium [Moles/Vol] 141 mmol/L 133-145 [facility] TSH DL <= 0.005 mIU/L QnOrde red By: Jolly Macdonald on 10-15-2024 Thyroid Stimulating Hormone (TSH) 1.270 uIU/mL 0.300-4.200 [facility] TSH Qn 1.270 uIU/mL 0.300-4.200 [facility] Total proteinOrdered By: Salvador Macdonald on 10-15-2024 Protein [Mass/Vol] 6.4 g/dL 5.9-8.4 [facility] Vitamin B12 ser/plasOrdered By: Jolly Macdonald on 10-15-2024 Cobalamin (Vitamin B12) [Mass/Vol] 533 pg/mL 180-914 [facility] White blood cell (WBC) count Ordered By: Jolly Macdonald on 10-15-2024 WBC (Bld) [#/Vol] 5.0 10*3/uL 4.4-11.0 [facility] Calculated very low density lipoprotein (VLDL) cholesterol measurementOrdered By: Micaela Holder on 10-04-2024 Calculated very low density lipoprotein (VLDL) cholesterol measurement 9 mg/dL 5-40 [facility] VLDL Cholesterol 9 mg/dL 5-40 [facility] LDL calc ser/plasOrdered By: Micaela Holder on 10-04-2024 Cholesterol in LDL [Mass/Vol] 113 mg/dL [facility] Comment on above: Bsbgdhmcbx=142-166 m g/dL & Higher Mhff=690 mg/dL or greater LDL Cholesterol, Calculated 113 mg/dL [facility] Comment on above: Ahznziwdjn=711-284 m g/dL & Higher Gkrw=929 mg/dL or greater Screening total cholesterol/ high density lipoprotein (HDL) cholesterol ratioOrdered By: Micaela Holder on 10-04-2024 Cholesterol.total/Choles terol in HDL [Mass ratio] 2.88 {ratio} [facility] Serum or plasma cholesterol in HDL measurement (mass/volume)Ordered By: Micaela Holder on 10-04-2024 Cholesterol in HDL [Mass/Vol] 65 mg/dL >40 [facility] Comment on above: National Cholesterol Education Program (NCEP) guidelines:<40 mg/dL: Low HDL-cholesterol (major risk factor for CHD)>= 60 mg/dL: High HDL-cholesterol (negative risk factor for CHD)HDL-cholesterol is affected by a number of factors, e.g. smoking, exercise, hormones, sex and age. Serum or plasma cholesterol measurement (mass/volume)Ordered By: Micaela Holder on 10-04-2024 Cholesterol [Mass/Vol] 187 mg/dL <201 [facility] Comment on above: Cholesterol level, D esirable <200 mg/dLBorderline high cholesterol 200-239 mg/dLHigh cholesterol >=240 mg/dLRecommendations of the NCEP Adult Treatment Panel for the following risk-cutoff thresholds for the [place] population. Triglycerides measurementOrd ered By: Micaela Holder on 10-04-2024 Triglyceride [Mass/Vol] 46 mg/dL <[address] [facility] Comment on above: The drugs N-Acetylcy steine and Metamizole may falsely depress this assay. Normal range: <150 mg/dLBorderline High: 150-199 mg/dLHigh: 200-499 mg/dLVery High: >500 mg/dL Bilirubin directOrdered By: Micaela Holder on 09-17-2024 Bilirubin.direct [Mass/Vol] 0.09 mg/dL 0.00-0.30 [facility] Bilirubin, totalOrdered By: Micaela Holder on 09-17-2024 Bilirubin [Mass/Vol] 0.18 mg/dL 0.00-1.30 [facility] - Chemistry and C hemistry - challengeOrdered By: Micaela Holder on 09-17-2024 AST [Catalytic activity/Vol] 19 U/L <38 [facility] Serum globulin measurementOr dered By: Micaela Holder on 09-17-2024 Globulin (S) [Mass/Vol] 3.0 g/dL 2.2-4.[address] [facility] Serum or plasma alanine ty otransferase (ALT) measurementOrdered By: Micaela Holder on 09-17-2024 ALT [Catalytic activity/Vol] 15 U/L <47 [facility] Serum or plasma albumin marvin urement (mass/volume)Ordered By: Micaela Holder on 09-17-2024 Albumin [Mass/Vol] 3.4 g/dL 3.4-4.8 [facility] Serum or plasma alkaline macho sphatase measurementOrdered By: Micaela Holder on 09-17-2024 ALP [Catalytic activity/Vol] 74 U/L 40-129 [facility] Total proteinOrdered By: Frank Holder on 09-17-2024 Protein [Mass/Vol] 6.4 g/dL 5.9-8.4 [facility] Vitamin B12 ser/plasOrdered By: Micaela Holder on 09-17-2024 Cobalamin (Vitamin B12) [Mass/Vol] 603 pg/mL 180-914 [facility] Serum or plasma thyroid stim ulating hormone (TSH) measurement (units/volume)Ordered By: Micaela Holder on 09-03-2024 TSH Qn 18.400 uIU/mL High 0.358-3.740 [facility] TSH QnOrdered By: Micaela Holder on 09-03-2024 Thyroid Stimulating Hormone (TSH) 18.400 uIU/mL High 0.358-3.740 [facility] Bilirubin directOrdered By: Micaela Holder on 08-20-2024 Bilirubin.direct [Mass/Vol] 0.11 mg/dL 0.00-0.30 [facility] Bilirubin, totalOrdered By: Micaela Holder on 08-20-2024 Bilirubin [Mass/Vol] 0.30 mg/dL 0.20-1.00 [facility] Comment on above: For patients on eltr ombopag therapy, use of Dimension [place] TBIL is not recommended. Laboratory - Chemistry and C hemistry - challengeOrdered By: Micaela Holder on 08-20-2024 AST [Catalytic activity/Vol] 24 U/L 15-37 [facility] Serum globulin measurementOr dered By: Micaela Holder on 08-20-2024 Globulin (S) [Mass/Vol] 3.8 g/dL 2.2-4.[address] [facility] Serum or plasma alanine ty otransferase (ALT) measurementOrdered By: Micaela Holder on 08-20-2024 ALT [Catalytic activity/Vol] 38 U/L 16-61 [facility] Serum or plasma albumin marvin urement (mass/volume)Ordered By: Micaela Holder on 08-20-2024 Albumin [Mass/Vol] 3.0 g/dL Low 3.2-5.0 [facility] Serum or plasma alkaline macho sphatase measurementOrdered By: Micaela Holder on 08-20-2024 ALP [Catalytic activity/Vol] 86 U/L 45-117 [facility] Total proteinOrdered By: Frank Holder on 08-20-2024 Protein [Mass/Vol] 6.8 g/dL 6.4-8.2 [facility] Vitamin B12 measurementOrder ed By: Micaela Holder on 08-20-2024 Cobalamin (Vitamin B12) [Mass/Vol] 1165 pg/mL High 211-911 [facility] 11-AW-Axiibmy DOrdered By: Haroon Holder on 07-23-2024 Vitamin D 25-Hydroxy 46.8 ng/mL [facility] Comment on above: Vitamin D 25(OH) Sta tus Range Deficiency <20 ng/mL (50nmol/L) Insufficiency 20 - 30 ng/mL (50 - 75 nmol/L) Sufficiency 30 - 100 ng/mL (75 - 250 nmol/L) Toxicity >100 ng/mL (>250 nmol/L) Bilirubin directOrdered By: Micaela Holder on 07-23-2024 Bilirubin.direct [Mass/Vol] 0.06 mg/dL 0.00-0.30 [facility] Bilirubin, totalOrdered By: Micaela Holder on 07-23-2024 Bilirubin [Mass/Vol] 0.30 mg/dL 0.20-1.00 [facility] Comment on above: For patients on eltr ombopag therapy, use of Dimension [place] TBIL is not recommended. Laboratory - Chemistry and C hemistry - challengeOrdered By: Micaela Holder on 07-23-2024 AST [Catalytic activity/Vol] 16 U/L 15-37 [facility] LevetiracetamOrdered By: Frank Holder on 07-23-2024 Levetiracetam (Keppra) Level 14.1 ug/mL 10.0-40.0 [facility] Comment on above: Performed at: [facility] [address] p[address] [id number] Director: Daniel Bailey MD, Phone: [phone] Serum globulin measurementOr dered By: Micaela Holder on 07-23-2024 Globulin (S) [Mass/Vol] 3.7 g/dL 2.2-4.2 [facility] Serum or plasma alanine ty otransferase (ALT) measurementOrdered By: Micaela Holder on 07-23-2024 ALT [Catalytic activity/Vol] 26 U/L 16-61 [facility] Serum or plasma albumin marvin urement (mass/volume)Ordered By: Micaela Holder on 07-23-2024 Albumin [Mass/Vol] 2.9 g/dL Low 3.2-5.0 [facility] Serum or plasma alkaline macho sphatase measurementOrdered By: Micaela Holder on 07-23-2024 ALP [Catalytic activity/Vol] 70 U/L 45-117 [facility] TSH QnOrdered By: Micaela Holder on 07-23-2024 Thyroid Stimulating Hormone (TSH) 18.700 uIU/mL High 0.358-3.740 [facility] Total proteinOrdered By: Frank Holder on 07-23-2024 Protein [Mass/Vol] 6.6 g/dL 6.4-8.2 [facility] Vitamin B12 measurementOrder ed By: Micaela Holder on 07-23-2024 Cobalamin (Vitamin B12) [Mass/Vol] 1011 pg/mL High 211-911 [facility] carBAMazepine [Mass/Vol]Orde red By: Micaela Holder on 07-23-2024 Carbamazepine (Tegretol) Level 9.6 ug/mL 4.0-12.0 [facility] CNPNon 07-02-2024 CNPN Telephone (FAMPWS) CASSYJ LUIS ([id number]) 1950 M Date Time Provider Department 07/02/24 USMAN PATEL During your visit today, we recorded the following information about you: Norma Rogers MA 07/02/2024 9:25 AM Signed Type of letter/form/fax request - order from [facility] Form received from fax on 1 floor and placed on MD desk (Dr. Patel) for completion. Completed form needs to be faxed to [facility] at [phone]. Route to [place] when form completed for processing Julieta Mckay MA 07/02/2024 11:53 AM Signed Form signed and faxed back to number below. Julieta Mckay MA Allergies As of Date: 07/02/2024 Noted Allergy Reaction SEASONAL ALLERGIES 03/13/2012 14 - Other: See Comments Date Reviewed: 10/20/2023 Reviewed by: Julieta Mckay MA - Fully Assessed Reason for Visit: Forms [913] Cmt: 90 day order for [facility] Prescriptions as of 07/02/2024 - levETIRAcetam (KEPPRA) [...] Encounter Status:Closed by JULIETA MCKAY on 07/02/24 [facility] J LUIS MADERA ([id number]) 1950 M Date Time Provider Department 05/09/24 USMAN PATEL [facility] During your visit today, we recorded the following information about you: Julieta Mckay MA 05/09/2024 1:27 PM Signed Type of form: 90 day order for Adult Day Care Services through [facility] Form received via fax When form is completed, Fax form to [phone] Form has been forwarded to Physician Desk: ALLISON Velazquez Kathryn, MA 05/10/2024 9:00 AM Signed Faxed. Norma Rogers MA Allergies As of Date: 05/09/2024 Noted Allergy Reaction SEASONAL ALLERGIES 03/13/2012 14 - Other: See Comments Date Reviewed: 10/20/2023 Reviewed by: Julieta Mckay MA - Fully Assessed Reason for Visit: Forms [913] Cmt: [facility] Prescriptions as of 05/10/2024 - levETIRAcetam (KEPPRA) [...] Encounter Status:Closed by [facility] ROG[facility] J LUIS MADERA ([id number]) 1950 M Date Time Provider Department 02/06/24 USMAN PATEL During your visit today, we recorded the following information about you: Norma Rogers MA 02/06/2024 9:49 AM Signed Type of letter/form/fax request - 90 day order for adult daycare Form received from fax on 1 floor and placed on MD desk (Dr. Patel) for completion. Completed form needs to be faxed to [facility] at [phone].. Route to AL when form completed for processing Norma Rogers MA 02/06/2024 3:28 PM Signed Form faxed. Norma Rogers MA Allergies As of Date: 02/06/2024 Noted Allergy Reaction SEASONAL ALLERGIES 03/13/2012 14 - Other: See Comments Date Reviewed: 10/20/2023 Reviewed by: Julieta Mckay MA - Fully Assessed Reason for Visit: Forms [913] Cmt: [facility] 90 day order Prescriptions as of 02/06/2024 [...] Encounter Status:Closed by NORMA ROGERS on 02/06/24 [facility] CNOVon 10-20-2023 CNOV Office Visit (FAMPWS ) J LUIS MADERA ([id number]) 1950 M Date Time Provider Department 10/20/23 [...] SNARE TQ 04/02/12 CRANIECTOMY/CRANIOTOM Y EXPL SUPRATENTORIAL 1979 Craniotomy LAPAROSCOPY COLECTOMY PARTIAL [...] Directive Dis (more content not included)... [facility] (Bld)[facility] 10-20-2023 Average glucose Estimated from glycated hemoglobin (Bld) [Mass/Vol] 123 mg/dL Normal [facility] Comment on above: Order Comment: Emil obrien Type: BLOOD SPECIMENOrdering Facility: [facility] Address: [address] [place] [address] Result Comment: eAG: (Estimated average glucose) is a calculated value from HgbA1c and is sales representative raw fibers of the average blood glucose level in the last 2-3 month period. Performed By: #### 5 5454-3 ####[facility] [id number] [place] [address] [place] HbA1c (Bld) [Mass fraction] 5.9 % High 4.3-5.6 [facility] Comment on above: Order Comment: Emil obrien Type: BLOOD SPECIMENOrdering Facility: [facility] Address: [address] [place] [address] Result Comment: Amer ican Diabetes Association guidelines indicate that patients with HgbA1c in the range 5.7-6.4% are at increased risk for development of diabetes, and intervention by lifestyle modification may be beneficial. HgbA1c greater or equal to 6.5% is considered diagnostic of diabetes. Performed By: #### 5 5454-3 ####[facility] [id number] [address] [place] TSH SerPl-aCncon 10-20-2023 TSH Qn 0.998 m[IU]/L Normal 0.270-4.200 [facility] Comment on above: Order Comment: Emil obrien Type: BLOOD SPECIMENOrdering Facility: [facility] Address: [address] [place] [address] Performed By: #### 3 016-3 ####[facility] [id number] [place] [address] [place] CNPNon 10-19-2023 CNPN Telephone (FAMPWS) J LUIS MADERA ([id number]) 1950 M Date Time Provider Department 10/19/23 USMAN PATEL During your visit today, we recorded the following information about you: Julieta Mckay MA 10/19/2023 9:29 AM Signed Type of form: 90 day order from [facility] Form received via fax When form is completed, Fax form to [phone] Form has been forwarded to Physician Desk: ALLISON Velazquez Rilee, MA 10/19/2023 11:56 AM Signed Form signed and faxed back to information below. Julieta Mckay MA Allergies As of Date: 10/19/2023 Noted Allergy Reaction SEASONAL ALLERGIES 03/13/2012 14 - Other: See Comments Date Reviewed: 08/28/2023 Reviewed by: Aiden Mccrary MD - Fully Assessed Reason for Visit: Forms [913] Cmt: Orders from [facility] - 90 day Prescriptions as of 10/19/2023 [...] Status:Closed by JULIETA MCKAY on 10/19/23 [facility] US CAROTID ARTERIES LISHA VAS LABon 09-19-2023 US CAROTID ARTERIES [facility]ISHA VAS LAB Non-Invasive Vascular Laboratory [facility] Carotid Duplex Bilateral/Complete Date of service/time: [...] Interpreting physician: MANISHA Melendez DO Final CC [facility] : [id number] [id number] See Link below for Image Normal [facility] ECHOon 09-05-2023 Echocardiography Echocardiography Report: Transthoracic Echo [facility] Date of service: 09/05/2023 1:10:31 PM [employer] Ordering physician: AIDEN MCCRARY Indication: Syncope Technologist: Dayna Riojas [facility] Interpreting physician: Livan Flores DO PATIENT: [...] * * Final * * * [facility] : [id number] [id number] [facility] CNOVon 08-28-2023 CNOV Office Visit (CAWSTR ) J LUIS MADERA ([id number]) 1950 M Date Time Provider Department 08/28/23 10:20 AM AIDEN MCCRARY During your visit today, we recorded the following information about you: Pulse Respiration Blood pressure Weight 71/minute 16/minute 151/64 91.6 kg Aiden Mccrary MD 08/28/2023 11:43 AM Signed [facility] SE[facility] REGIONAL CARDIOLOGY Cardiology ([facility]) [address] [facility] [id number] OUTPATIENT VISIT DATE 08/28/2023 PRIMARY CARE PHYSICIAN: Usman Patel [address] [place] [address] REFERRING PHYSICIAN: Temitope Lara [address] [facility] [address] CHIEF COMPLAINT: Dizziness HISTORY OF PRESENT ILLNESS: [...] obstructive pulmonary disease based on initial evaluation ([facility]) 2018 PAST SURGICAL HISTORY Procedure Laterality Date [...] S2 with (more content not included)... Normal [facility] MRI CERVICAL SPINE WO IVCONo n [...] vertebrae with counting from the craniocervical junction. Wood Hacker: JUJU Transcribe Date/Time: Aug 15 2023 2:23P Dictated by : SHIRIN PRADO MD This examination was interpreted and the report reviewed and electronically signed by: SHIRIN PRADO MD on Aug 15 2023 2:25PM EST [id number] Normal [facility] CNPNon 08-14-2023 CNPN Telephone (4CQ) CASSYJ LUIS R ([id number]) 1950 M Date Time Provider Department 08/14/23 USMAN PATEL 4CQ During your visit today, we recorded the following information about you: Batsheva Parry 08/14/2023 2:32 PM Signed Patient is requesting new PT order for Dizziness [R42] Balance problem [R26.89] Abnormality of gait [R26.9] And then would like this order faxed to [facility] as [place] is to far to travel for the patient. Usman Patel MD 08/14/2023 3:22 PM Signed Order printed MD Ken Fraire Ma, Kathryn 08/14/2023 3:40 PM Signed Order faxed to [facility]. Detailed message left on pt identified [...] [R26.89] Dizziness [R42] Order(s):CONSULT TO PHYSICAL THERAPY [9034] Order #: [id number]: 1 FUTURE Prescriptions as of 08/14/2023 - [...] Status:Closed by NORMA ROGERS MA on 08/14/23 [facility] CNTHERAPYon 08-08-2023 CNTHERAPY OT/PT/Speech Visit (LDPT) J LUIS MADERA ([id number]) 1950 M Date Time Provider Department 08/08/23 1:30 PM CAWNEEN, MARY KAY LDPT Date Time Provider Department Center 08/08/2023 1:30 PM [id number], SARAH LDPT [facility] Reason for Visit: PT Progress Note [...] tablet by mouth two times a day. Television Reporter: Addendum Therapy (PT/OT/Speech/Resp) ID: [id number] 08/08/2023 2:14 PM Author: MARY KAY BAIRES Signed by MARY KAY BAIRES PT, DPT on 08/08/2023 at 2:14 PM * * * This document replaces document [id number] * * * Document text: Program_ID:[id number] Access Code: [email or web address] URL: [email or web address] Date: 08-08-2023 Prepared By: Mary Kay Baires [...] 2 sets - 10 reps ----- Normal [facility] THERAPY NTon 08-08-2023 THERAPY NT HNO ID: [id number] Author: MARY KAY BAIRES, PT, DPT Service: ? Author Type: Physical Therapist Type: Therapy (PT/OT/Speech/Resp) Filed: 08/08/2023 14:06 Note Text: Program_ID:[id number] Access Code: [email or web address] URL: [email or web address] Date: 08-08-2023 Prepared By: Mary Kay Baires Program Notes Exercises - Sit to Stand with Armchair - x daily - 7 x weekly - 2 sets - 10 reps Normal [facility] CNPNon 07-20-2023 [place] Telephone ([place]) J LUIS MADREA ([id number]) 1950 M Date Time Provider Department 07/20/23 [...] Encounter Status:Closed by CAITY CAI on 07/20/23 [facility] CNOVon 07-19-2023 CNOV Office Visit (NEMOWS ) J LUIS MADERA ([id number]) 1950 M Date Time Provider Department 07/19/23 2:30 PM TEMITOPE LARA During your visit today, we recorded the following information about you: Pulse Respiration Blood pressure Weight 74/minute 18/minute 125/78 90.3 kg Temitope Lara PA-C 07/19/2023 4:16 PM Signed [facility] Date: July 19, 2023 Patient Name: J Luis Madera Referring physician: Usman Patel [address] [address] Consult requested for dizziness by Dr. Patel. Recommendations will be communicated via shared medical record or US mail. Primary physician: Usman Patel [address] [phone] Reason for Evaluation: Dizziness and seizures Subjective [...] He is here for [facility]. No seizure was reported [...] niece called EMS and he was transported [facility]. Reported that his dizziness gets worse with standing but denies any presyncope or lightheaded sensation, described more of a room spinning dizziness. Improves when he sits down or lays down, has difficulty stating how often it occurs but notes that he falls from this dizziness once or twice a month. MRI obtained at [facility] showed no acute infarct and stable chronic changes. Patient does not remember much about his admission, states that no scans were obtained and has difficulty remembering. Notes that he has passed out in the past secondary to this dizziness and he estimates the last occurrence was 6 to 12 months ago. 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 [facility] CASSYJ LUIS R ([id number]) 1950 M Date Time Provider Department 07/19/23 [...] Status:Closed by BRENDA LUNDY on 07/19/23 [facility] CRP SerPl-mCncon 07-19-2023 CRP [Mass/Vol] 1.3 mg/dL High <0.9 [facility] Comment on above: Order Comment: Speci men Type: BLOOD SPECIMENOrdering Facility: [facility] Address: [address] [place] [address] Performed By: #### 2 132-9, 1987-5, 2885-2 ####[facility] [id number] [place] [address] [place] ESR Westergren method (Bld) [Velocity]on 07-19-2023 ESR (Bld) [Velocity] 46 mm/h High 0-15 [facility] Comment on above: Order Comment: Speci men Type: BLOOD SPECIMENOrdering Facility: [facility] Address: [address] [place] [address] Performed By: #### 4 537-7 ####[facility] [id number] [place] [address] [place] Methylmalonate SerPl-sCncon 07-19-2023 Methylmalonate [Moles/Vol] 0.40 umol/L Normal <=0.40 [facility] Comment on above: Order Comment: Speci men Type: BLOOD SPECIMENOrdering Facility: [facility] Address: [address] [place] [address] Result Comment: This test was developed and its performance characteristics determined by [facility]'s Alon JJody [facility] Pathology and Laboratory Medicine [facility] ([facility]). It has not been cleared or approved by the FDA. [facility] is regulated under CLIA as qualified to perform high-complexity testing. This test is used for clinical purposes. It should not be regarded as investigational or for research. Performed By: #### 1 3964-2 ####[facility] [id number] [place] [address] [place] PROTEIN ELECTROPHORESIS SERU M WITH ANGEL (P)on 07-19-2023 Albumin [Mass/Vol] 4.11 g/dL Normal 3.43-5.41 [facility] Comment on above: Order Comment: Speci men Type: BLOOD SPECIMENOrdering Facility: [facility] Address: [address] [place] [address] Performed By: #### L [id number] ####[facility] [id number] [place] [address] [place] Alpha 1 globulin Elph [Mass/Vol] 0.30 g/dL Normal 0.18-0.43 [facility] Comment on above: Order Comment: Speci men Type: BLOOD SPECIMENOrdering Facility: [facility] Address: [address] [place] [address] Performed By: #### L [id number] ####[facility] [id number] [address] [place] Alpha 2 globulin Elph [Mass/Vol] 0.79 g/dL Normal 0.42-0.98 [facility] Comment on above: Order Comment: Speci men Type: BLOOD SPECIMENOrdering Facility: [facility] Address: [address] [place] [address] Performed By: #### L [id number] ####[facility] [id number] [place] [address] [place] Beta globulin Elph [Mass/Vol] 0.89 g/dL Normal 0.61-1.17 [facility] Comment on above: Order Comment: Speci men Type: BLOOD SPECIMENOrdering Facility: [facility] Address: [address] [place] [address] Performed By: #### L [id number] ####[facility] [id number] [place] [address] [place] COMMENT (SERUM PROT ELECTRO) Monoclonal Protein analysis (immunofixation) is not indicated. Normal [facility] Comment on above: Order Comment: Speci men Type: BLOOD SPECIMENOrdering Facility: [facility] Address: [address] [place] [address] Performed By: #### L [id number] ####[facility] [id number] [place] [address] [place] Gamma globulin Elph [Mass/Vol] 1.12 g/dL Normal 0.53-1.51 [facility] Comment on above: Order Comment: Speci men Type: BLOOD SPECIMENOrdering Facility: [facility] Address: [address] [place] [address] Performed By: #### L [id number] ####[facility] [id number] [address] [place] M-PROTEIN LOCATION Normal [facility] Comment on above: Order Comment: Speci men Type: BLOOD SPECIMENOrdering Facility: [facility] Address: [address] [place] [address] Result Comment: Not Applicable. Performed By: #### L [id number] ####[facility] [id number] [place] [address] [place] Protein Fractions [Interp] No definitive M protein is identified on protein electrophoresis. Normal No definitive M protein is identified on protein electrophores is. [facility] Comment on above: Order Comment: Speci men Type: BLOOD SPECIMENOrdering Facility: [facility] Address: [address] [place] [address] Performed By: #### L [id number] ####[facility] [id number] [place] [address] [place] Protein.monoclonal Elph [Mass/Vol] 0.00 g/dL Normal <=0.00 [facility] Comment on above: Order Comment: Speci men Type: BLOOD SPECIMENOrdering Facility: [facility] Address: [address] [place] [address] Performed By: #### L [id number] ####[facility] [id number] [place] [address] [place] SPE STAFF REVIEW Reviewed by Dr. Kira May MD [facility] Comment on above: Order Comment: Speci men Type: BLOOD SPECIMENOrdering Facility: [facility] Address: [address] [place] [address] Performed By: #### L [id number] ####[facility] [id number] [place] [address] [place] Prot SerPl-ncon 07-19-2023 Protein [Mass/Vol] 7.2 g/dL Normal 6.3-8.0 [facility] Comment on above: Order Comment: Speci men Type: BLOOD SPECIMENOrdering Facility: [facility] Address: [address] [place] [address] Performed By: #### 2 132-9, 1987-11, 2884-08 ####[facility] [id number] [address] Vit B12 [facility] 024 Cobalamin (Vitamin B12) [Mass/Vol] 285 pg/mL Normal 232-1245 [facility] Comment on above: Order Comment: Speci men Type: BLOOD SPECIMENOrdering Facility: [facility] Address: [address] [place] [address] Performed By: #### 2 132-9, 2884-08 ####[facility] [id number] [place] [id number] [place] CNTHERAPYon 07-14-2023 CNTHERAPY OT/PT/Speech Visit (LDPT) J LUIS MADERA ([id number]) 1950 M Date Time Provider Department 07/14/23 3:00 PM LESA JOAQUIN LDPT Date Time Provider Department Center 07/14/2023 3:00 PM [id number], GABRIEL*LDPT [facility] Reason for Visit: PT Eval [747] [...] by mouth two times a day. Normal [facility] Laboratory - Chemistry and C hemistry - challengeOrdered By: Kike Malave on 06-25-2023 Free T4 [Mass/Vol] 0.82 ng/dL 0.76-1.46 [facility] Absolute lymphocyte countOrd ered By: Raoul Oliver on 06-24-2023 Lymphocytes Auto (Unsp spec) [#/Vol] 1.39 10*3/uL 0.83-4.51 [facility] Basophil percentageOrdered B y: Raoul Oliver on 06-24-2023 Basophils/100 WBC (Bld) 1.2 % 0-[address] [facility] Chloride [Moles/Vol] 111 mmol/L 98-107 [facility] Eosinophils/100 WBC (Bld) 5.3 % 0-5 [facility] Glucose [Mass/Vol] 105 mg/dL 74-106 [facility] Comment on above: Fasting Glucose resu lt from 100 to 125 mg/dL suggests IMPAIRED HOMEOSTASIS per A.D.A. criteria. Neutrophils (Bld) [#/Vol] 3.3 10*3/uL 2.0-7.7 [facility] Neutrophils/100 WBC (Bld) 57.0 % 47-70 [facility] Potassium [Moles/Vol] 3.8 mmol/L 3.5-5.1 [facility] Sodium [Moles/Vol] 140 mmol/L 136-145 [facility] WBC (Bld) [#/Vol] 5.7 10*3/uL 4.4-11.0 [facility] Blood erythrocytes count (nu mber/volume)Ordered By: Raoul Oliver on 06-24-2023 RBC (Bld) [#/Vol] 3.54 10*6/uL 4.6-6.2 [facility] Blood hemoglobin measurement (mass/volume)Ordered By: Raoul Oliver on 06-24-2023 Hemoglobin (Bld) [Mass/Vol] 11.4 g/dL 13.0-16.5 [facility] Blood lymphocytes/100 leukoc ytesOrdered By: Raoul Oliver on 06-24-2023 Lymphocytes/100 WBC (Bld) 24.4 % 19-41 [facility] Blood monocytes/100 leukocyt esOrdered By: Raoul Oliver on 06-24-2023 Monocytes/100 WBC (Bld) 11.4 % 0-[address] [facility] Blood platelet mean volumeOr dered By: Raoul Oliver on 06-24-2023 Platelet mean volume (Bld) [Entitic vol] 10.0 fL 6.2-12.0 [facility] Determination of erythrocyte mean corpuscular volume (MCV)Ordered By: Raoul Oliver on 06-24-2023 MCV (RBC) [Entitic vol] 99.2 fL 80-[address] [facility] Hematocrit Auto (Bld) [Volum e fraction]Ordered By: Raoul Oliver on 06-24-2023 Hematocrit (Bld) [Volume fraction] 35.1 % 40-54 [facility] Laboratory - Chemistry and C hemistry - challengeOrdered By: Raoul Oliver on 06-24-2023 CO2 [Moles/Vol] 26.0 mmol/L 21.0-32.0 [facility] Urea nitrogen/Creatinine [Mass ratio] 9.0 mg/mg 10-20 [facility] Laboratory - Hematology and Cell countsOrdered By: Raoul Oliver on 06-24-2023 Erythrocyte distribution width (RBC) [Entitic vol] 48.0 fL 35.1-43.9 [facility] Erythrocyte distribution width (RBC) [Ratio] 13.1 % 11.6-14.6 [facility] Immature granulocytes/100 WBC (Bld) 0.700 % 0.0-0.9 [facility] Comment on above: IG% - Immature Granu locytes (promyelocytes, myelocytes and metamyelocytes) > 1% indicates that a LEFT SHIFT is Present. MCH (RBC) [Entitic mass] 32.2 pg 27.0-32.0 [facility] Nucleated RBC/100 WBC (Bld) [Ratio] 0 % 0-5 [facility] MCHC Auto (RBC) [Mass/Vol]Or dered By: Raoul Oliver on 06-24-2023 MCHC (RBC) [Mass/Vol] 32.5 g/dL 32-36 [facility] No Panel InformationOrdered By: Raoul Oliver on 06-24-2023 Estimated Creatinine Clearance Calc 49.63 ml/min [facility] Estimated GFR (MDRD) Amer 84 mL/min >60 [facility] Comment on above: GFR Calc Estimated GFR (MDRD) Non-Af Amer 69 mL/min >60 [facility] Comment on above: Non- GFR Calc Platelets bldOrdered By: Main Oliver on 06-24-2023 Platelets (Bld) [#/Vol] 249 10*3/uL 150-450 [facility] Serum or plasma calcium marvin urement (mass/volume)Ordered By: Raoul Oliver on 06-24-2023 Calcium [Mass/Vol] 8.3 mg/dL 8.5-10.1 [facility] Serum or plasma creatinine m easurement (mass/volume)Ordered By: Raoul Oliver on 06-24-2023 Creatinine [Mass/Vol] 1.11 mg/dL 0.70-1.30 [facility] Comment on above: The validity of the calculated GFR & GFRAA in patients over 70 years has not been determined. Clinical correlation is essential. Serum or plasma urea nitroge n measurement (mass/volume)Ordered By: Raoul Oliver on 06-24-2023 Urea nitrogen [Mass/Vol] 10 mg/dL 7-18 [facility] Thin prep Papanicolaou smear with manual screeningOrdered By: Raoul Oliver on 06-24-2023 Thin prep Papanicolaou smear with manual screening 3 5-15 [facility] Basophil percentageOrdered B y: Ethan Martinez on 06-23-2023 Basophil percentage 0 SEEN /hpf 0-5 [facility] Bilirubin Test strip Ql (U)O rdered By: Ethan Martinez on 06-23-2023 Bilirubin Ql (U) Negative Negative [facility] Ketones Test strip Ql (U)Ord ered By: Alisaus Michelle on 06-23-2023 Ketones Ql (U) Negative Negative [facility] Mucus LM Ql (Urine sed)Order ed By: Ethan Martinez on 06-23-2023 Mucus Ql (Urine sed) 0 SEEN /hpf [facility] Nitrite Test strip Ql (U)Ord ered By: Ethan Martinez on 06-23-2023 Nitrite Ql (U) Negative Negative [facility] No Panel InformationOrdered By: Raoul Oliver on 06-23-2023 Thyroid Stimulating Hormone (TSH) 4.71 uIU/mL 0.358-3.74 [facility] No Panel InformationOrdered By: Ethan Martinez on 06-23-2023 Troponin I High Sensitivity 6 pg/mL 3.0-78.0 [facility] Comment on above: Please Note: [place] t Units and Gender Specific Reference Ranges. For more information see Policy Stat Procedure [place] High Sensitivity Troponin (TNIH) and attachments. Protein Test strip Ql (U)Ord ered By: Remus Michelle on 06-23-2023 Protein Ql (U) 15 mg/dl Negative [facility] Squamous epithelial cells de tection in urine sediment by light microscopyOrdered By: Remus Ungjose on 06-23-2023 Epithelial cells.squamous LM Ql (Urine sed) 0-5 SEEN /hpf 0-5 [facility] Urine blood detectionOrdered By: Remus Ungjose on 06-23-2023 RBC Ql (U) Negative Negative [facility] RBC Ql (U) 0 SEEN /hpf 0-5 [facility] Urine clarityOrdered By: Rem us Michelle on 06-23-2023 Clarity (U) Clear Clear [facility] Urine color determinationOrd ered By: Remus Michelle on 06-23-2023 Color (U) Yellow Yellow [facility] Urine glucose detectionOrder ed By: Remus Michelle on 06-23-2023 Glucose Ql (U) 100 mg/dl Normal [facility] Urine leukocyte esterase det ection by dipstickOrdered By: Remus Michelle on 06-23-2023 Leukocyte esterase Test strip Ql (U) Negative Negative [facility] Urine pHOrdered By: Remus Un gur on 06-23-2023 pH (U) 6.0 [pH] 5.0 - 8.0 [facility] Urine sediment bacteria coun t by microscopy (number/high power field)Ordered By: Remus Michelle on 06-23-2023 Bacteria LM.HPF (Urine sed) [#/Area] 0 /[HPF] None Seen [facility] Urine specific gravity measu rementOrdered By: Remus Michelle on 06-23-2023 Specific gravity (U) [Rel density] 1.015 1.002-1.030 [facility] Urobilinogen Auto test strip Ql (U)Ordered By: Remus Ungjose on 06-23-2023 Urobilinogen Ql (U) Normal mg/dl Normal [facility] CT CHEST WO IVCONon 11-25-19 [facility] SCREENING FOR AAAon 11-15 [facility] LUNG VOLUMESon 09-13-2022 [facility] NITRIC OXIDE, EXHALEDon - [facility] SPIROMETRY - BASELINE AND PO ST DILATORon 09-13-2022 ERV BOX (L) 0.43 L [facility] [id number]% POST (L/S) 1.49 L/S [facility] RNZ11-09% PRE (L/S) 2.39 L/S [facility] FEV1 PRE (L) 1.98 L [facility] FEV1/FVC POST (%) 78 % [facility] FEV1/FVC PRE (%) 84 % [facility] FEV1_POST (L) 1.84 L [facility] FRC Box (L) 1.89 L [facility] FVC POST (L) 2.35 L [facility] FVC PRE (L) 2.37 L [facility] IC BOX (L) 1.91 L [facility] PEF POST (L/S) 5.55 L/S [facility] PEF PRE (L/S) 5.58 L/S [facility] RV Box (L) 1.42 L [facility] RV/TLC Box (%) 39 % [facility] TLC Box (L) 3.68 L [facility] VC (L) BOX 2.[address] [facility] [address] CHEST WO IVCONon 11-24-19 22 Radiology Result ACTIONABLE Abnormal [facility] XR Chest PA and Lateralon IMPRESSION: Left upper lobe nodular opacity could be infectious. Lungs are otherwise clear. Recommend follow-up with nonemergent chest CT. Wood H[facility] Transcribe Date/Time: Aug 13 2021 4:33P Dictated by : POORNIMA CANAS MD This examination was interpreted and the report reviewed and electronically signed by: POORNIMA CANAS MD on Aug 13 2021 4:35PM [facility] DIVISION OF RADIOLOGY * * *Final [...] pulmonary edema. DIVISION OF RADIOLOGY Provider, Rian Sanchez - 08/13/2021 * * *Final Report* * [...] clear. Recommend follow-up with nonemergent chest CT. Wood Hacker: [facility] Transcribe Date/Time: Aug 13 2021 4:33P Dictated by : POORNIMA CANAS MD This examination was interpreted and the report reviewed and electronically signed by: POORNIMA CANAS MD on Aug 13 2021 4:35PM EST [facility] Radiology Study observation (narrative) Quinn Brown XR Chest PA and LateralOrder ed By: [facility] Provider on 08-13-2021 [facility] Vital Signs Date Time Vital Sign Value Performing Clinician Facility 05-02-2025 14:43-0400 Body height 162.[address] Usman Patel MD Work Phone: [facility] 10-20-2023 14:22-0400 Body weight 91.35 kg Usman Patel MD Work Phone: [facility] 10-20-2023 14:22-0400 Diastolic blood pressure 74 mm[Hg] Usman Patel MD Work Phone: [facility] 10-20-2023 14:22-0400 Heart rate 82 /min Usman Patel MD Work Phone: [facility] 10-20-2023 14:22-0400 Respiratory rate 18 /min Usman Patel MD Work Phone: [facility] 10-20-2023 14:22-0400 Systolic blood pressure 122 mm[Hg] Usman Patel MD Work Phone: [facility] 08-28-2023 10:36-0500 Body weight 91.63 kg Aiden Mccrary MD Work Phone: [facility] 08-28-2023 10:36-0500 Diastolic blood pressure 64 mm[Hg] Aiden Mccrary MD Work Phone: [facility] 08-28-2023 10:36-0500 Heart rate 71 /min Aiden Mccrary MD Work Phone: [facility] 08-28-2023 10:36-0500 Respiratory rate 16 /min Aiden Mccrary MD Work Phone: [facility] 08-28-2023 10:36-0500 SaO2% (BldA) [Mass fraction] 100 % Aiden Mccrary MD Work Phone: [facility] 08-28-2023 10:36-0500 Systolic blood pressure 151 mm[Hg] Aiden Mccrary MD Work Phone: [facility] 06-25-2023 13:23-0500 Heart rate 78 /min Dr. Usman Patel Work Phone: [facility] 06-25-2023 13:23-0500 Respiratory rate 18 /min Dr. Usman Patel Work Phone: [facility] 06-25-2023 11:36-0500 Body temperature 98 [degF] Dr. Usman Patel Work Phone: [facility] 06-25-2023 11:36-0500 Diastolic blood pressure 61 mm[Hg] Dr. Usman Patel Work Phone: [facility] 06-25-2023 11:36-0500 SaO2% (BldA) [Mass fraction] 96 % Dr. Usman Patel Work Phone: [facility] 06-25-2023 11:36-0500 Systolic blood pressure 113 mm[Hg] Dr. Usman Patel Work Phone: [facility] 06-23-2023 20:06-0500 Body height 162.[address] Usman Patel Work Phone: [facility] 06-23-2023 20:06-0500 Body mass index (BMI) [Ratio] 34.2 kg/m2 Dr. Usman Patel Work Phone: [facility] 06-23-2023 20:06-0500 Body weight 90.[address] Usman Patel Work Phone: [facility] 05-17-2023 13:59-0400 Body weight 90.27 kg 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.OUTPATIENT PSYCHIATRIST Work Phone: [facility] 05-17-2023 13:59-0400 Diastolic blood pressure 76 mm[Hg] 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.OUTPATIENT PSYCHIATRIST Work Phone: [facility] 05-17-2023 13:59-0400 Heart rate 88 /min Shyana Frias [employer] MACHINE OPERATOR.OUTPATIENT PSYCHIATRIST Work Phone: [facility] 05-17-2023 13:59-0400 Respiratory rate 16 /min 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.OUTPATIENT PSYCHIATRIST Work Phone: [facility] 05-17-2023 13:59-0400 SaO2% (BldA) [Mass fraction] 98 % 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.OUTPATIENT PSYCHIATRIST Work Phone: [facility] 05-17-2023 13:59-0400 Systolic blood pressure 110 mm[Hg] 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.OUTPATIENT PSYCHIATRIST Work Phone: [facility] 02-24-2023 19:04-0400 Body mass index (BMI) [Ratio] 34.2 kg/m2 [facility] 02-24-2023 19:04-0400 Body weight 93.3 kg [facility] 02-24-2023 13:55-0400 Body height 165.1 cm [facility] 02-24-2023 13:55-0400 Body temperature 97.1 [degF] [facility] 02-24-2023 13:55-0400 Diastolic blood pressure 80 mm[Hg] [facility] 02-24-2023 13:55-0400 Heart rate 72 /min [facility] 02-24-2023 13:55-0400 Respiratory rate 18 /min [facility] 02-24-2023 13:55-0400 SaO2% (BldA) [Mass fraction] 99 % [facility] 02-24-2023 13:55-0400 Systolic blood pressure 159 mm[Hg] [facility] 09-13-2022 13:21-0500 Body height 160 cm Pulm Wstr Work Phone: [facility] 09-13-2022 13:21-0500 Body weight 92.08 kg Pulm Wstr Work Phone: [facility] 09-13-2022 13:21-0500 Heart rate 74 /min Pulm Wstr Work Phone: [facility] 09-13-2022 13:21-0500 Respiratory rate 16 /min Pulm Wstr Work Phone: [facility] 09-13-2022 13:21-0500 SaO2% (BldA) [Mass fraction] 96 % Pulm Wstr Work Phone: [facility] 09-08-2022 14:01-0500 Body temperature 98.01 [degF] Shayna Tannhof [employer] MACHINE OPERATOR.OUTPATIENT PSYCHIATRIST Work Phone: [facility] 09-08-2022 14:01-0500 Body weight 93.44 kg Shayna Tannhof [employer] MACHINE OPERATOR.OUTPATIENT PSYCHIATRIST Work Phone: [facility] 09-08-2022 14:01-0500 Diastolic blood pressure 74 mm[Hg] Shayna Tannhof [employer] MACHINE OPERATOR.OUTPATIENT PSYCHIATRIST Work Phone: [facility] 09-08-2022 14:01-0500 Heart rate 104 /min Shayna Tannhof [employer] MACHINE OPERATOR.OUTPATIENT PSYCHIATRIST Work Phone: [facility] 09-08-2022 14:01-0500 Respiratory rate 16 /min Shayna Tannhof [employer] MACHINE OPERATOR.OUTPATIENT PSYCHIATRIST Work Phone: [facility] 09-08-2022 14:01-0500 SaO2% (BldA) [Mass fraction] 96 % Shayna Tannhof [employer] MACHINE OPERATOR.OUTPATIENT PSYCHIATRIST Work Phone: [facility] 09-08-2022 14:01-0500 Systolic blood pressure 126 mm[Hg] Shayna Tannhof [employer] MACHINE OPERATOR.OUTPATIENT PSYCHIATRIST Work Phone: [facility] 08-24-2022 16:11-0500 Body temperature 98.1 [degF] Shayna Tannhof [employer] MACHINE OPERATOR.OUTPATIENT PSYCHIATRIST Work Phone: [facility] 08-24-2022 16:11-0500 Body weight 90.72 kg Shayna Tannhof [employer] MACHINE OPERATOR.OUTPATIENT PSYCHIATRIST Work Phone: [facility] 08-24-2022 16:11-0500 Diastolic blood pressure 90 mm[Hg] Shayna Tannhof [employer] MACHINE OPERATOR.OUTPATIENT PSYCHIATRIST Work Phone: [facility] 08-24-2022 16:11-0500 Heart rate 99 /min Shayna Tannhof [employer] MACHINE OPERATOR.OUTPATIENT PSYCHIATRIST Work Phone: [facility] 08-24-2022 16:11-0500 Respiratory rate 16 /min Shayna Tannhof [employer]SEM[employer] MACHINE OPERATOR.OUTPATIENT PSYCHIATRIST Work Phone: [facility] 08-24-2022 16:11-0500 SaO2% (BldA) [Mass fraction] 97 % Shayna Tannhof [employer] MACHINE OPERATOR.OUTPATIENT PSYCHIATRIST Work Phone: [facility] 08-24-2022 16:11-0500 Systolic blood pressure 138 mm[Hg] Shayna Tannhof [employer] MACHINE OPERATOR.OUTPATIENT PSYCHIATRIST Work Phone: [facility] 05-17-2022 14:44-0400 Body weight 92.9 kg Usman Patel MD Work Phone: [facility] 05-17-2022 14:44-0400 Diastolic blood pressure 90 mm[Hg] Usman Patel MD Work Phone: [facility] 05-17-2022 14:44-0400 Heart rate 74 /min Usman Patel MD Work Phone: [facility] 05-17-2022 14:44-0400 Respiratory rate 16 /min Usman Patel MD Work Phone: [facility] 05-17-2022 14:44-0400 Systolic blood pressure 154 mm[Hg] Usman Patel MD Work Phone: [facility] Encounters Encounter Date Encounter Type Care Provider Facility Start: 05-20-2025 ambulatory Usman Patel Facilit y:[facility] Start: 05-13-2025 ambulatory Usman Patel Facilit y:[facility] Start: 04-22-2025 ambulatory Jollyteofilo Macdonald OLS Fac ility:[facility] Start: 04-22-2025 Registered Referred Jolly Macdonald RN HEMO DIALYSIS-C -[facility] Start: 04-01-2025 ambulatory Jolly Macdonald OLS Fac ility:[facility] Start: 04-01-2025 Registered Referred Jolly Macdonald RN HEMO DIALYSIS-C -[facility] Start: 03-28-2025 End: 03-28-[address] Usman Patel MD Work Phone: [facility] Start: 03-28-2025 End: 03-28-2025 Patient encounter procedure Jolly Macdonald RN HEMO DIALYSIS- -[facility] Work Phone: Start: 03-18-2025 ambulatory Jolly Macdonald OLS Fac ility:[facility] Start: 03-18-2025 Registered Referred Jolly Macdonald NP-C -[facility] Start: 02-18-2025 End: 02-18-[address] Usman Patel MD Work Phone: [facility] Start: 02-18-2025 End: 02-18-[address] Micaela Holder MD -[facility] Work Phone: Start: 02-18-2025 Registered Referred Micaela Holder MD -[facility] Start: 02-18-2025 End: 02-18-2025 ambulatory Micaela MÉNDEZ Facility:[facility] Start: 02-06-2025 End: 02-06-[address] Usman Patel MD Work Phone: [facility] Start: 02-06-2025 End: 02-06-2025 Patient encounter procedure Poornima LOTT -[facility] Work Phone: Start: 01-14-2025 End: 01-14-[address] Usman Patel MD Work Phone: [facility] Start: 01-14-2025 End: 01-14-2025 Departed Referred Jolly Macdonald -[facility] Start: 01-14-2025 Registered Referred Jolly Macdonald [facility] Start: 01-14-2025 End: 01-14-2025 ambulatory Jolly MÉNDEZ Facility:[facility] Start: 01-07-2025 ambulatory Micaela MÉNDEZ Fa cility:[facility] Start: 01-07-2025 Registered Referred Micaela Holder MD [facility] Start: 12-24-2024 End: 12-24-[address] Usman Patel MD Work Phone: [facility] Start: 12-24-2024 End: 12-24-[address] Micaela Holder MD -[facility] Work Phone: Start: 12-17-2024 ambulatory Jolly MÉNDEZ Fac ility:[facility] Start: 12-17-2024 Registered Referred Jolly Macdonald [facility] Start: 11-26-2024 End: 11-26-[address] Usman Patel MD Work Phone: [facility] Work Phone: Start: 11-26-2024 End: 11-26-2024 Departed Referred Micaela Holder MD [facility] Start: 11-26-2024 End: 11-26-2024 ambulatory Micaela MÉNDEZ Facility:[facility] Start: 11-19-2024 End: 11-19-[address] Usman Patel MD Work Phone: [facility] Work Phone: Start: 11-19-2024 End: 11-19-2024 Departed Referred Jolly Macdonald RN HEMO DIALYSIS-C -[facility] Start: 11-19-2024 Registered Referred Jolly Macdonald RN HEMO DIALYSIS-C -[facility] Start: 11-18-2024 End: 11-19-[address] Usman Patel MD Work Phone: [facility] Start: 11-18-2024 End: 11-18-2024 Patient encounter procedure Jolly Macdonald RN HEMO DIALYSIS-C -[facility] Work Phone: Start: 10-15-2024 End: 10-15-[address] Usman Patel MD Work Phone: [facility] Work Phone: Start: 10-15-2024 End: 10-15-[address] Micaela Holder MD -[facility] Work Phone: Start: 10-15-2024 End: 10-15-2024 Departed Referred Jolly Macdonald RN HEMO DIALYSIS-C -[facility] Start: 10-15-2024 Registered Referred Jolly Macdonald RN HEMO DIALYSIS-C -[facility] Start: 10-15-2024 End: 10-15-2024 ambulatory Jolly MÉNDEZ Facility:[facility] Start: 10-04-2024 End: 10-04-[address] Usman Patel MD Work Phone: [facility] Work Phone: Start: 10-04-2024 End: 10-04-2024 Departed Referred Micaela Holder MD -[facility] Start: 10-04-2024 Registered Referred Micaela Holder MD [facility] Start: 10-04-2024 End: 10-04-2024 ambulatory Micaela MÉNDEZ Facility:[facility] Start: 09-17-2024 End: 09-17-[address] Usman Patel MD Work Phone: [facility] Work Phone: Start: 09-17-2024 End: 09-17-2024 Departed Referred iMcaela Holder MD [facility] Start: 09-17-2024 End: 09-17-2024 ambulatory Efewongbe Olekamilahe OLS Facility:[facility] Start: 09-03-2024 ambulatory Efewongbe Loriee OLS Fa cility:[facility] Start: 09-03-2024 Registered Referred Micaela Holder MD [facility] Start: 08-20-2024 ambulatory Efewongbe Oleghe OLS Fa cility:[facility] Start: 08-20-2024 [facility] Start: 07-23-2024 ambulatory Efewongjesi Meloe OLS Fa cility:[facility] Start: 07-23-2024 Registered Referred Micaela Holder MD [facility] Start: 07-02-2024 End: 07-02-2024 Telephone encounter Usman Patel MD Work Phone: [facility] Comment on above: Forms (90 day order for [place]) Start: 06-18-2024 End: 06-18-2024 ambulatory Usman Patel Facility:[facility] Start: 05-09-2024 End: 05-10-2024 Telephone encounter Usman Patel MD Work Phone: [facility] Comment on above: Forms ([place]) Start: 03-05-2024 End: 03-05-2024 Refill Usman Patel MD Work Phone: [facility] Comment on above: Med Change Request Start: 03-04-2024 End: 03-04-2024 Refill Usman Patel MD Work Phone: [facility] Comment on above: Refill Request Start: 02-06-2024 Telephone encounter Usman mccarthy MD Work Phone: [facility] [place] Comment on above: Forms ([place] [facility] 90 day order) Start: 10-20-2023 End: 10-20-2023 [facility] Start: 10-20-2023 End: 10-20-2023 Patient encounter procedure Usamn Patel MD Work Phone: [facility] [place] Comment on above: Hypothyroidism, acqu ired (Primary Dx); Balance problem; Dizziness; Generalized convulsive epilepsy (HCC); COPD with chronic bronchitis (HCC); Cerebral palsy, unspecified type (HCC) Start: 10-19-2023 Telephone encounter Usman mccarthy MD Work Phone: [facility] [place] Comment on above: Forms (Orders from [place] - 90 day) Start: 09-19-2023 End: 09-19-2023 ambulatory AIDEN MCCRARY Facility:[facility] Start: 09-05-2023 End: 09-05-2023 ambulatory AIDEN MCCRARY Facility:[facility] Start: 08-28-2023 End: 08-28-2023 ambulatory [facility] Facility:[facility] Start: 08-28-2023 End: 08-28-2023 Patient encounter procedure Aiden Mccrary MD Work Phone: Cardiology Comment on above: Syncope and collapse ; Vasovagal syncope; Palpitations Start: 08-15-2023 End: 08-15-2023 ambulatory [facility] Facility:[facility] Start: 08-08-2023 End: 08-08-2023 ambulatory [facility] Facility:[facility] Start: 07-19-2023 End: 07-19-2023 ambulatory [facility] Facility:[facility] Start: 07-19-2023 End: 07-19-2023 ambulatory [facility] Facility:[facility] Start: 07-14-2023 End: 07-15-2023 ambulatory [facility] Facility:[facility] Start: 06-27-2023 Patient Outreach Usman zuñiga MD Work Phone: [facility] [place] Comment on above: Transition Of Care Start: 06-25-2023 Non-patient / Non-visit Dr. Allison Patel Work Phone: [facility] Work Phone: Start: 06-24-2023 Non-patient / Non-visit Dr. Allison Patel Work Phone: [facility] Work Phone: Start: 06-23-2023 Non-patient / Non-visit Dr. Allison Patel Work Phone: [facility] Work Phone: Start: 06-23-2023 End: 06-25-2023 Evaluation and management of inpatient Dr. Usman Patel Work Phone: [facility] 3 Work Phone: Start: 06-23-2023 End: 06-25-[address] Usman Patel Work Phone: [facility] Work Phone: Start: 06-23-2023 Telephone encounter Usman mccarthy MD Work Phone: [facility] Comment on above: Patient Update Start: 06-01-2023 Refill Usman humphries MD Work Phone: [facility] Comment on above: Refill Request Start: 05-17-2023 End: 05-17-2023 Patient encounter procedure Shayna Frias APRN.CNP Work Phone: [facility] Comment on above: Generalized convulsi ve epilepsy (HCC) (Primary Dx); Imbalance; COPD with chronic bronchitis; Hypothyroidism, acquired; Cerebral palsy, unspecified type (HCC); Prostate cancer screening; Dyslipidemia, goal LDL below 100 Start: 02-27-2023 Telephone encounter Usman mccarthy MD Work Phone: [facility] Comment on above: Patient Update (Fall ) Start: 02-24-2023 End: 02-24-2023 Emergency department patient visit [facility] Work Phone: Start: 11-24-2022 End: 11-24-2022 Subsequent hospital visit by physician Ct [facility] (I-Stat) Work Phone: Cat Scan Comment on above: Lung nodules [R91.8] Start: 11-15-2022 End: 11-15-2022 Subsequent hospital visit by physician Us [facility] Mob 2 Work Phone: Radiology Comment on above: Screening for AAA (a bdominal aortic aneurysm) [Z13.6] Start: 09-19-2022 Telephone encounter Shayna mahoney BALLPOINT PEN ASSEMBLY MACHINE OPERATOR.OUTPATIENT PSYCHIATRIST Work Phone: [facility] [place] Comment on above: Results (PFT's) Start: 09-13-2022 End: 09-13-2022 ambulatory Pulm Lab [facility] Work Phone: PULM LAB [facility] Comment on above: Spirometry Start: 09-13-2022 End: 09-13-2022 Patient encounter procedure [facility] Work Phone: [facility] Start: 09-08-2022 End: 09-08-2022 Patient encounter procedure Shayna Frias APRN.OUTPATIENT PSYCHIATRIST Work Phone: [facility] [place] Comment on above: Cough, unspecified t ype (Primary Dx); SOB (shortness of breath); COPD with chronic bronchitis (HCC) Start: 09-07-2022 Telephone encounter Usman mccarthy MD Work Phone: [facility] [place] Comment on above: Appointment Start: 08-25-2022 Telephone encounter Shayna mahoney BALLPOINT PEN ASSEMBLY MACHINE OPERATOR.OUTPATIENT PSYCHIATRIST Work Phone: [facility] [place] Comment on above: Results (COVID/flu.) Start: 08-24-2022 End: 08-24-2022 Patient encounter procedure Shayna Frias APRN.OUTPATIENT PSYCHIATRIST Work Phone: [facility] [place] Comment on above: Sinobronchitis (Prim uvaldo Dx) Start: 07-12-2022 Telephone encounter Usman mccarthy MD Work Phone: [facility] Comment on above: Forms ([facility]) Start: 06-10-2022 Telephone encounter Usman mccarthy MD Work Phone: [facility] Comment on above: Results Start: 05-24-2022 Telephone encounter Fritz fritz OUTPATIENT PSYCHIATRIST Work Phone: [facility] Comment on above: Results Start: 05-17-2022 End: 05-17-2022 Patient encounter procedure Usman Patel MD Work Phone: [facility] Comment on above: Hypothyroidism, acqu ired (Primary Dx); Need for influenza vaccination; Need for COVID-19 vaccine; Generalized convulsive epilepsy (HCC); Imbalance; COPD with chronic bronchitis (HCC); Obesity, Class II, BMI 35-39.9; Elevated PSA; Cerebral palsy, unspecified type (HCC) Start: 12-08-2021 ambulatory Lora chauhan RN Work Phone: [employer] Comment on above: [employer] [facility] ing (Enrollment Outreach) Start: 11-23-2021 End: 11-23-2021 Subsequent hospital visit by physician Ct [facility] (I-Stat) Work Phone: Cat Scan Comment on above: Lung nodules [R91.8] Start: 11-12-2021 Telephone encounter Usman mccarthy MD Work Phone: [facility] Comment on above: Results Start: 08-13-2021 End: 08-13-2021 Subsequent hospital visit by physician Xr [facility] [place] Work Phone: Radiology Comment on above: Suspected [...] 09-13-2022 Nitric oxide gas determination 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.OUTPATIENT PSYCHIATRIST Work Phone: Start: 09-13-2022 Brncdilat rspse spmt ry pre&post-brncdilat admn 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.OUTPATIENT PSYCHIATRIST Work Phone: Start: 05-17-2022 INFLUENZA SEASONAL QUADRIVALENT HIGH DOSE AGE 65+ Usman Patel MD Work Phone: Start: 05-17-2022 [employer] ([employer]) COVI D-19 BIVALENT BOOSTER VACCINE, AGE 12+ YR Usman Patel MD Work Phone: Start: 11-23-2021 Ct thorax w/o contra st material Usman Patel MD Work Phone: Start: 08-13-2021 Radiologic exam ches t 2 views Brenda Oneal BALLPOINT PEN ASSEMBLY MACHINE OPERATOR.OUTPATIENT PSYCHIATRIST Work Phone: Start: 05-10-2021 Adult depression scr eening assessment Usman Patel MD Work Phone: Start: 03-03-2020 Lipid 1996 panel - S arabella or Plasma 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.OUTPATIENT PSYCHIATRIST Work Phone: Start: 02-01-2016 Colonoscopy Usman woodruff MD Work Phone: Plan of Treatment Date Care Activity Detail Author Start: 11-14-2032 Urine microalbumin profile [facility] Start: 06-05-2028 Lipid 1996 panel - S arabella or Plasma Lipid Screening [facility] Start: 06-05-2028 Lipid panel Lipid Screening [facility] Start: 10-19-2026 Diabetes Screening Diabetes Screenin g [facility] Start: 06-05-2026 Diabetes Screening Diabetes Screenin g [facility] Start: 01-31-2026 Colonoscopy COLONOSCOPY [facility] Start: 01-31-2026 COLORECTAL CANCER SCREENING COLORECTAL CANCER SCREENING [facility] Start: 01-31-2026 Screening for malign ant neoplasm of colon [facility] Start: 05-13-2025 Registered Referred Registered Refer [facility] Start: 03-03-2025 Lipid 1996 panel - S arabella or Plasma Lipid Screening [facility] Start: 03-03-2025 LIPID SCREEN LIPID SCREEN [facility] Start: 11-08-2024 DIABETES SCREEN DIABETES SCREEN [facility] Start: 11-08-2024 Diabetes Screening Diabetes Screenin g [facility] Start: 10-19-2024 Annual PCP Team Certified Dialysis Technician main Disease Visit Annual PCP Team Chronic Disease Visit [facility] Start: 10-19-2024 Covid-19 Vaccine () Covid-19 Vaccine () [facility] Comment on above: Postponed from 03/17 (Declined at this time) Start: 07-08-2024 End: 07-08-2024 Patient encounter procedure 07/08/2024 3:20 PM EST Office Visit Cardiology [address] [place] [id number] Maria Guadalupe Shin MD [address], [address] [place] [address] follow up Cardiology Comment on above: follow up Start: 07-04-2024 Annual PCP Team Certified Dialysis Technician main Disease Visit Annual PCP Team Chronic Disease Visit [facility] Start: 05-17-2024 Annual PCP Team Certified Dialysis Technician main Disease Visit Annual PCP Team Chronic Disease Visit [facility] Start: 04-19-2024 End: 04-19-2024 Patient encounter procedure 04/19/2024 2:00 PM EDT Office Visit [facility] [address] [place], [place] [address] Usman Patel MD [address] [place], [place] [id number] 6 month follow up [facility] Comment on above: 6 month follow up Start: 03-17-2024 Covid-19 Vaccine ( season) Covid-19 Vaccine () [facility] Start: 03-17-2024 Influenza vaccination Influenza Vacc ine (#1) [facility] Start: 03-13-2024 End: 03-13-2024 Patient encounter procedure 03/13/2024 3:30 PM EDT Office Visit Neurology [address], [place] [id number] Temitope Lara PA-C [address] [place], [place] [id number] 3 month follow up Neurology Comment on above: 3 month follow up Start: 11-15-2023 ANNUAL PCP TEAM VEHICLE LEASING AND RENTAL MANAGER MAIN DISEASE VISIT ANNUAL PCP TEAM CHRONIC DISEASE VISIT [facility] Start: 09-08-2023 ANNUAL PCP TEAM VEHICLE LEASING AND RENTAL MANAGER MAIN DISEASE VISIT ANNUAL PCP TEAM CHRONIC DISEASE VISIT [facility] Start: 08-24-2023 ANNUAL PCP TEAM VEHICLE LEASING AND RENTAL MANAGER MAIN DISEASE VISIT ANNUAL PCP TEAM CHRONIC DISEASE VISIT [facility] Start: 07-17-2023 Advance Directive Discussion Advance Directive Discussion [facility] Start: 07-17-2023 Behavioral Health Screening Behavioral Health Screening [facility] Start: 07-17-2023 Depression Assessment Depression Ass essment [facility] Start: 06-25-2023 Patient discharge [facility] Start: 06-23-2023 End: 06-23-2023 Following clinical pathway protocol [facility] Start: 06-23-2023 Ambulation without limitation [facility] Start: 06-23-2023 Assessment of risk o f venous thromboembolism [facility] Start: 06-23-2023 Insertion of cathete r into peripheral vein [facility] Start: 06-23-2023 Providing care accor ding to standard [facility] Start: 06-23-2023 Referral to occupati onal therapist [facility] Start: 06-23-2023 Referral to service [facility] Start: 06-23-2023 [facility] Start: 06-23-2023 Admission procedure [facility] Start: 06-23-2023 Inhalation therapy procedure [facility] Start: 05-17-2023 ANNUAL PCP TEAM VEHICLE LEASING AND RENTAL MANAGER MAIN DISEASE VISIT ANNUAL PCP TEAM CHRONIC DISEASE VISIT [facility] Start: 05-17-2023 End: 08-16-2023 carBAMazepine [Mass/volume] in Serum or Plasma CARBAMAZEPI/TEGRETOL Lab Routine Generalized convulsive epilepsy (HCC) Expected: 05/17/2023, Expires: 08/16/2023 [facility] Work Phone: Comment on above: Expected: 05/17/2023 , Expires: 08/16/2023 Start: 05-17-2023 End: 08-16-2023 CBC W Auto Differential panel - Blood CBC + DIFF Lab Routine Generalized convulsive epilepsy (HCC) Expected: 05/17/2023, Expires: 08/16/2023 [facility] Work Phone: Comment on above: Expected: 05/17/2023 , Expires: 08/16/2023 Start: 05-17-2023 End: 08-16-2023 Comprehensive metabolic 2000 panel - Serum or Plasma COMP METABOLIC PANEL Lab Routine Generalized convulsive epilepsy (HCC) Expected: 05/17/2023, Expires: 08/16/2023 [facility] Work Phone: Comment on above: Expected: 05/17/2023 , Expires: 08/16/2023 Start: 05-17-2023 End: 08-16-2023 levETIRAcetam [Mass/volume] in Serum or Plasma LEVETIRACETAM Lab Routine Generalized convulsive epilepsy (HCC) Expected: 05/17/2023, Expires: 08/16/2023 [facility] Work Phone: Comment on above: Expected: 05/17/2023 , Expires: 08/16/2023 Start: 05-17-2023 End: 08-16-2023 Lipid 1996 panel - Serum or Plasma LIPID PANEL BASIC Lab Routine Dyslipidemia, goal LDL below 100 Expected: 05/17/2023, Expires: 08/16/2023 [facility] Work Phone: Comment on above: Expected: 05/17/2023 , Expires: 08/16/2023 Start: 05-17-2023 End: 08-16-2023 PSA/PROSTSPECAG SCRN PSA/PROSTSPECAG SCRN Lab Routine Prostate cancer screening Expected: 05/17/2023, Expires: 08/16/2023 [facility] Work Phone: Comment on above: Expected: 05/17/2023 , Expires: 08/16/2023 Start: 05-17-2023 End: 08-16-2023 Thyrotropin [Units/volume] in Serum or Plasma TSH BLD Lab Routine Hypothyroidism, acquired Expected: 05/17/2023, Expires: 08/16/2023 [facility] Work Phone: Comment on above: Expected: 05/17/2023 , Expires: 08/16/2023 Start: 03-17-2023 Covid-19 Vaccine () Covid-19 Vaccine () [facility] Start: 03-17-2023 Influenza vaccination [facility] Start: 11-23-2022 Influenza vaccination LUNG CANCER SC REENING [facility] Start: 11-14-2022 End: 01-14-2023 carBAMazepine [Mass/volume] in Serum or Plasma CARBAMAZEPI/TEGRETOL Lab Routine Generalized convulsive epilepsy (HCC) Expected: 11/14/2022 (Approximate), Expires: 01/14/2023 [facility] Work Phone: Comment on above: Expected: 11/14/2022 (Approximate), Expires: 01/14/2023 Start: 11-14-2022 End: 01-14-2023 Comprehensive metabolic 2000 panel - Serum or Plasma COMP METABOLIC PANEL Lab Routine Obesity, Class II, BMI 35-39.9 Expected: 11/14/2022 (Approximate), Expires: 01/14/2023 [facility] Work Phone: Comment on above: Expected: 11/14/2022 (Approximate), Expires: 01/14/2023 Start: 11-14-2022 End: 01-14-2023 levETIRAcetam [Mass/volume] in Serum or Plasma LEVETIRACETAM Lab Routine Generalized convulsive epilepsy (HCC) Expected: 11/14/2022 (Approximate), Expires: 01/14/2023 [facility] Work Phone: Comment on above: Expected: 11/14/2022 (Approximate), Expires: 01/14/2023 Start: 11-14-2022 End: 01-14-2023 Lipid 1996 panel - Serum or Plasma LIPID PANEL BASIC Lab Routine Obesity, Class II, BMI 35-39.9 Expected: 11/14/2022 (Approximate), Expires: 01/14/2023 [facility] Work Phone: Comment on above: Expected: 11/14/2022 (Approximate), Expires: 01/14/2023 Start: 11-14-2022 End: 01-14-2023 Thyrotropin [Units/volume] in Serum or Plasma TSH BLD Lab Routine Hypothyroidism, acquired Expected: 11/14/2022 (Approximate), Expires: 01/14/2023 [facility] Work Phone: Comment on above: Expected: 11/14/2022 (Approximate), Expires: 01/14/2023 Start: 11-08-2022 ANNUAL PCP TEAM VEHICLE LEASING AND RENTAL MANAGER MAIN DISEASE VISIT ANNUAL PCP TEAM CHRONIC DISEASE VISIT [facility] Start: 09-14-2022 COVID-19 VACCINE (5 - Moderna series) COVID-19 VACCINE (5 - Moderna series) [facility] Start: 09-08-2022 End: 10-08-2023 LUNG VOLUMES LUNG VOLUMES PFT Routine SOB (shortness of breath) COPD with chronic bronchitis (HCC) Expected: 09/08/2022, Expires: 10/08/2023 [facility] Work Phone: Comment on above: Expected: 09/08/2022 , Expires: 10/08/2023 Start: 07-24-2022 End: 09-23-2022 Thyrotropin [Units/volume] in Serum or Plasma TSH BLD Lab Routine Hypothyroidism, acquired Expected: 07/24/2022 (Approximate), Expires: 09/23/2022 [facility] Work Phone: Comment on above: Expected: 07/24/2022 (Approximate), Expires: 09/23/2022 Start: 07-17-2022 ADVANCE DIRECTIVE DISCUSSION ADVANCE DIRECTIVE DISCUSSION [facility] Start: 07-17-2022 DEPRESSION ASSESSMENT DEPRESSION ASS ESSMENT [facility] Start: 05-17-2022 End: 07-17-2022 Prostate specific Ag [Mass/volume] in Serum or Plasma [facility] Work Phone: Comment on above: Expected: 05/17/2022 , Expires: 07/17/2022 Start: 05-17-2022 End: 07-17-2022 Thyrotropin [Units/volume] in Serum or Plasma [facility] Work Phone: Comment on above: Expected: 05/17/2022 , Expires: 07/17/2022 Start: 05-10-2022 Adult depression scr ning assessment DEPRESSION SCREENING [facility] Start: 11-30-2021 COVID-19 VACCINE (4 - Booster for Moderna series) COVID-19 VACCINE (4 - Booster for Moderna series) [facility] Start: 07-17-2021 DEPRESSION ASSESSMENT DEPRESSION ASS ESSMENT [facility] Start: 2010 RSV Vaccine (1 - 1-d ose 60+ series) RSV Vaccine (1 - 1-dose 60+ series) [facility] Start: 2010 RSV Vaccine (1 - Ris k 60-74 years 1-dose series) RSV Vaccine (1 - Risk 60-74 years 1-dose series) [facility] Start: 2005 [facility] Start: 2000 SHINGRIX VACCINE (1 of 2) DUMONT GRIX VACCINE (1 of 2) [facility] Start: 1995 COLOGUARD (FIT-DNA) COLOGUARD (FIT-D NA) [facility] Start: [address] COLONOGRAPHY [facility] Start: 1995 FECAL OCCULT BLOOD FECAL OCCULT BLOO D [facility] Start: 1995 Screening for malign ant neoplasm of colon [facility] Start: 1995 SIGMOIDOSCOPY SIGMOIDOSCOPY [facility] Start: 1980 Zoledronic acid therapy ALPHA- 1 ANTITRYPSIN DEFICIENCY SCREENING [facility] Start: 1969 Urine microalbumin profile DTAP,TDAP ,TD (1 - Tdap) [facility] Start: 1968 Anxiety Screening Anxiety Screening [facility] Start: 1968 Depression Screening Depression Scre ening [facility] Start: 1956 PNEUMOCOCCAL: 65+ (1 - PCV) PNEUMOCOCCAL: 65+ (1 - PCV) [facility] Start: 1950 ABDOMINAL AORTIC ANE URYSM SCREENING ABDOMINAL AORTIC ANEURYSM SCREENING [facility] End: 08-28-2024 Echocardiography ECHO Cardiology Routine Syncope and collapse Palpitations 1 Occurrences starting 08/28/2023 until 08/28/2024 [facility] Work Phone: Comment on above: 1 Occurrences starti ng 08/28/2023 until 08/28/2024 Influenza virus A an d B RNA and SARS-CoV-2 (COVID-19) N gene panel - Respiratory specimen by JOY with probe detection COVID WITH FLUA+B, ROUTINE Microbiology Routine Sinobronchitis Ordered: 08/24/2022 [facility] Work Phone: Comment on above: Ordered: 08/24/2022 End: 10-08-2023 NITRIC OXIDE, EXHALED NITRIC OXIDE, EXHALED PFT Routine SOB (shortness of breath) COPD with chronic bronchitis (HCC) 1 Occurrences starting 09/08/2022 until 10/08/2023 [facility] Work Phone: Comment on above: 1 Occurrences starti ng 09/08/2022 until 10/08/2023 OUTSIDE VENDOR CARDI AC OUTPATIENT EXTENDED RHYTHM RECORDING (WITHOUT TELEMETRY) OUTSIDE VENDOR CARDIAC OUTPATIENT EXTENDED RHYTHM RECORDING (WITHOUT TELEMETRY) Holter Routine Syncope and collapse Palpitations Ordered: 08/28/2023 [facility] Work Phone: Comment on above: Ordered: 08/28/2023 Patient Education ED Fracture, Foot [facility] Work Phone: Patient referral [facility] Work Phone: End: 10-08-2023 SPIROMETRY - BASELINE AND POST DILATOR SPIROMETRY - BASELINE AND POST DILATOR PFT Routine SOB (shortness of breath) COPD with chronic bronchitis (HCC) 1 Occurrences starting 09/08/2022 until 10/08/2023 [facility] Work Phone: Comment on above: 1 Occurrences starti ng 09/08/2022 until 10/08/2023 End: 08-28-2024 US Carotid arteries - bilateral US CAROTID ARTERIES [facility] V[facility] Lab Routine Syncope and collapse 1 Occurrences starting 08/28/2023 until 08/28/2024 [facility] Work Phone: Comment on above: 1 Occurrences starti ng 08/28/2023 until 08/28/2024 [facility] Immunizations Immunization Date Immunization Notes Care Provider Sarah diaz 06-24-2023 Influenza High-Dose Quadrivalent Dr. Usman Patel Work Phone: [facility] 06-24-2023 influenza virus vacc ine, unspecified formulation Usman Patel MD Work Phone: [facility] 11-14-2022 tetanus toxoid, redu silvia diphtheria toxoid, and acellular pertussis vaccine, adsorbed Usman Patel MD Work Phone: [facility] 05-17-2022 COVID-19 booster vaccine, age 12+ yr, bivalent (PFIZER-BIONTECH) Usman Patel MD Work Phone: [facility] 05-17-2022 influenza, high-dose , quadrivalent vaccine (FLUZONE HIGH DOSE QUADRIVALENT) Usman Patel MD Work Phone: [facility] 05-17-2022 influenza virus vacc ine, unspecified formulation Shayna Frias APRN.OUTPATIENT PSYCHIATRIST Work Phone: [facility] 08-02-2021 COVID-19 vaccine, ag e 12+ yr (PFIZER-BIONTECH - BEYER TOP) Usman Patel MD Work Phone: [facility] Work Phone: 05-10-2021 influenza, high-dose , quadrivalent vaccine (FLUZONE HIGH DOSE QUADRIVALENT) Usman aPtel MD Work Phone: [facility] 09-11-2020 COVID-19 vaccine, fu ll dose (MODERNA) Usman Patel MD Work Phone: [facility] 08-14-2020 COVID-19 vaccine, fu ll dose (MODERNA) Usman Patel MD Work Phone: [facility] 05-07-2020 influenza, high dose seasonal, preservative-free Usman Patel MD Work Phone: [facility] 05-07-2020 influenza, high-dose , quadrivalent vaccine (FLUZONE HIGH DOSE QUADRIVALENT) Usman Patel MD Work Phone: [facility] 05-21-2019 influenza, high dose seasonal, preservative-free Usman Patel MD Work Phone: [facility] 07-26-2018 influenza, high dose seasonal, preservative-free Usman Patel MD Work Phone: [facility] 05-12-2017 influenza, high dose seasonal, preservative-free Usman Patel MD Work Phone: [facility] 04-16-2017 influenza, high dose seasonal, preservative-free Usman Patel MD Work Phone: [facility] 03-17-2017 Influenza virus vaccine [facility] 03-17-2017 influenza, seasonal, injectable, preservative free Usman Patel MD Work Phone: [facility] 12-02-2016 pneumococcal polysaccharide vaccine, 23 valent Usman Patel MD Work Phone: [facility] 05-23-2016 influenza, high dose seasonal, preservative-free Usman Patel MD Work Phone: [facility] 11-30-2015 pneumococcal conjuga te vaccine, 13 valent Usman Patel MD Work Phone: [facility] 07-27-2013 pneumococcal polysaccharide vaccine, 23 valent Usman Patel MD Work Phone: [facility] 07-27-2013 pneumococcal vaccine , unspecified formulation [facility] 05-27-2013 influenza virus vacc ine, unspecified formulation Usman Patel MD Work Phone: [facility] 05-17-2013 Influenza virus vaccine [facility] 07-27-2009 novel influenza-H1N1 -09, preservative-free, injectable Usman Patel MD Work Phone: [facility] 05-08-2009 influenza virus vacc ine, whole virus Usman Patel MD Work Phone: [facility] 05-22-2008 influenza virus vacc ine, unspecified formulation Usman Patel MD Work Phone: [facility] 05-15-2007 influenza virus vacc ine, whole virus Usman Patel MD Work Phone: [facility] Payers Date Payer Category Payer Unknown [id number] 2024 Unknown [id number] 2024 Self-pay [id number] 2024 Unknown [id number] 2022 Medicare [id number] 2020 Medicare HUMANA MEDICARE HUMANA GOLD PLUS [id number] 2020-Present [id number] [place] [id number] [facility] [id number] 2020 Medicare [id number] 2001 Medicare MEDICARE PART A B [id number] Unknown [id number] Unknown [id number] 2.16.840.1.791931.3.579.2.462 Unknown [id number] 2.16.840.1.374917.3.579.2.462 Unknown [id number] 2.16.840.1.715457.3.579.2.462 Unknown [id number] 2.16840.1.623115.3.579.2.462 Unknown [id number] 2.840.1.500981.3.579.2.462 Unknown [id number] 2.840.1.544112.3.579.2.462 Unknown [id number] 2.840.1.455598.3.579.2.462 Unknown [id number] 2.840.1.774399.3.579.2.462 Unknown [id number] 2.840.1.168786.3.579.2.462 Unknown [id number] 2.840.1.275117.3.579.2.462 Unknown [id number] 2.840.1.867551.3.579.2.462 Unknown [id number] 2.840.1.928259.3.579.2.462 Unknown [id number] 2.840.1.294215.3.579.2.462 Unknown [id number] 2.840.1.032844.3.579.2.462 Unknown [id number] 2.840.1.681426.3.579.2.462 Unknown [id number] 2.840.1.208423.3.579.2.462 Unknown [id number] 2.16840.1.668833.3.579.2.462 Unknown [id number] 2.840.1.370482.3.579.2.462 Unknown [id number] 2.840.1.839648.3.579.2.462 Unknown [id number] 2.16.840.1.241993.3.579.2.462 Unknown [id number] 2.16.840.1.277831.3.579.2.462 Unknown [id number] 2.16.840.1.363167.3.579.2.462 Unknown [id number] 2.16.840.1.176194.3.579.2.462 Social History Date Type Detail Facility Start: 05-17-2022 End: 05-02-2025 Tobacco smoking status NHIS Ex-smoker [facility] Work Phone: Start: 1968 End: 05-09-2007 History of tobacco use Current smoker [facility] Work Phone: Start: 11-08-2021 End: 10-20-2023 Alcohol intake Current drinker of alcohol (finding) [facility] Start: 11-01-2016 History SDOH Alcohol Comment Very occasionally. [facility] Start: 11-01-2016 End: 05-17-2022 Tobacco Comment Father smoked in childhood home. Prior roomate smoked. [facility] Start: 1950 Sex Assigned At Not on file [facility] Start: 07-14-2021 End: 05-17-2022 Exposure to SARS-CoV-2 (event) Not sure [facility] Start: 1968 End: 05-09-2007 History of tobacco use Cigarette Smoker [facility] Start: 05-17-2022 End: 05-17-2023 Cigarettes smoked current (pack per day) - Reported 1.5 [facility] Work Phone: Start: 11-01-2016 End: 05-17-2022 Tobacco use and exposure Smokeless tobacco non-user [facility] Start: 02-24-2023 End: 06-23-2023 Tobacco smoking status DEIS Unknown if ever smoked [facility] Start: 08-30-2017 None [facility] Start: 02-24-2023 Alone [facility] Start: 02-24-2023 Non-smoker [facility] Start: 1950 Sex Assigned At Male [facility] Start: 11-14-2022 End: 05-17-2023 Tobacco use panel [facility] Work Phone: Adult Depression Screening Assessment 0 [facility] Work Phone: Start: 10-17-2024 End: 10-23-2024 Sex Male (finding) [facility] Goals Date Patient Goal Desired Activity /State Functional Status Date Assessment Result Facility 06-25-2023 Functional status Ambulates [facility] Work Phone: Mental Status Date Assessment Result Facility 06-25-2023 Cognitive function Voice/Name [facility] Work Phone: Clinical Notes 06-27-2014 to 07-02-2024 Telephone Encounter - Julieta Mckay MA - 07/02/2024 11:52 AM ESTTelephone Encounter - Julieta Mckay MA - 07/02/2024 11:52 AM ESTTelephone Encounter - Norma Rogers MA - 07/02/2024 9:24 AM EST Note Date & Type Note Facility 07-02-2024 Telephone encounter Note Form signed and faxed back to number below. Julieta Mckay MA [facility] 07-02-2024 Miscellaneous Notes Form signed and faxed back to number below. Julieta Mckay MA Type of letter/form/fax request - order from [facility] Form received from fax on 1 floor and placed on MD desk (Dr. Patel) for completion. Completed form needs to be faxed to [facility] at [phone]. Route to [place] when form completed for processing documented in this encounter [facility] 07-02-2024 Telephone encounter Note Type of letter/form/fax request - order from [facility] Form received from fax on 1 floor and placed on MD desk (Dr. Patel) for completion. Completed form needs to be faxed to [facility] at [phone]. Route to AL when form completed for processing [facility] 05-10-2024 Telephone encounter Note Faxed. Norma Rogers MA [facility] 05-10-2024 Miscellaneous Notes Faxed. Norma Rogers MA Type of form: 90 day order for Adult Day Care Services through [facility] Form received via fax When form is completed, Fax form to [phone] Form has been forwarded to Physician Desk: Dr. Jorge Mckay MA documented in this encounter [facility] 05-09-2024 Telephone encounter Note Type of form: 90 day order for Adult Day [facility] Services through [facility] Form received via fax When form is completed, Fax form to [phone] Form has been forwarded to Physician Desk: Dr. Jorge Mckay MA [facility] 03-05-2024 Telephone encounter Note OK to refill as ordered Usman Patel MD [facility] 03-05-2024 Miscellaneous Notes OK to refill as ordered Usman Patel MD Images from the original note were not included. See prescription sig note from Pharmacy regarding medication use. documented in this encounter [facility] 03-05-2024 Telephone encounter Note Images from the original note were not included. See prescription sig note from Pharmacy regarding medication use. [facility] 03-04-2024 Telephone encounter Note The following [...] a day. Authorizing Provider: USMAN PATEL MA [facility] 03-04-2024 Miscellaneous Notes The following approved medication requests have been transmitted electronically. Requested Prescriptions Signed Prescriptions Disp Refills carBAMazepine (TEGRETOL) 200 mg tablet 270 tablet 3 Sig: one tablet every AM, and 2 every evening Authorizing Provider: ELDERBROCK, USMAN D levothyroxine (LEVOXYL) 100 mcg tablet 90 tablet [...] 2024 2:19 PM documented in this encounter [facility] 03-04-2024 Telephone encounter Note OK to refill as ordered Usman Patel MD [facility] 03-04-2024 Telephone encounter Note Prescription Refill [...] mouth two times a day. Amara Farr [facility] March 04, 2024 2:19 PM [facility] 02-06-2024 Telephone encounter Note Form faxed. Norma Rogers MA [facility] 02-06-2024 Miscellaneous Notes Form faxed. Norma Rogers MA Type of letter/form/fax request - 90 day order for adult daycare Form received from fax on 1 floor and placed on MD desk (Dr. Patel) for completion. Completed form needs to be faxed to [facility] at [phone].. Route to AL when form completed for processing documented in this encounter [facility] 02-06-2024 Telephone encounter Note Type of letter/form/fax request - day order for adult daycare Form received from fax on 1 floor and placed on MD desk (Dr. Patel) for completion. Completed form needs to be faxed to [facility] at [phone].. Route to AL when form completed for processing [facility] 10-20-2023 History of Presen t illness [...] obstructive pulmonary disease based on initial evaluation ([facility]) 2017 Previous Surgical History PAST SURGICAL HISTORY [...] - 1-dose 60+ series) Never done Covid-19 Vaccine() due on 03/17/2023 Advance Directive Discussion due [...] Usman Patel MD documented in this encounter [facility] 10-20-2023 Note HNO ID: [id number] Author: USMAN PATEL MD Service: ? Author [...] Vaccine(2 - Td (more content not included)... [facility] 10-19-2023 Miscellaneous Notes Form signed and faxed back to information below. Julieta Mckay MA Type of form: 90 day order from [facility] Form received via fax When form is completed, Fax form to [phone] Form has been forwarded to Physician Desk: Dr. Jorge Mckay MA documented in this encounter [facility] 10-05-2023 Note HNO ID: [id number] Author: JAGRUTI TSANG PT Service: ? Author Type: Physical Therapist Type: Progress Notes Filed: 10/05/2023 07:53 Note Text: Summary: PT DC 10/05/2023 [facility] PHYSICAL THERAPY [...] scheduled additional follow-up appointments. Jagruti Tsang, PT [facility] 08-28-2023 Note HNO ID: [id number] Author: RACHELLE PEARL, RN Service: ? Author Type: Registered Nurse Type: Progress Notes Filed: 08/28/2023 11:43 Note Text: EVENT MONITOR DISPOSABLE PATCH INSTRUCTIONS Patient Name: J Luis Madera [facility] Number: [id number] Skin prepped and cleansed with alcohol Patch secured to prepped area Monitor Activated Serial #: [id number] Patient Instructed: Prescribed order timeframe Bathing guidelines Usage of event button and diary documentation Return of monitor at the end of prescribed order Call with problems [phone] or [phone]. [phone] Patient expresses a good understanding of instructions Rachelle Pearl RN [facility] 08-28-2023 History of Presen t illness Narrative EVENT MONITOR DISPOSABLE PATCH INSTRUCTIONS Patient Name: J Luis Madera [facility] Number: [id number] Skin prepped and cleansed with alcohol Patch secured to prepped area Monitor Activated Serial #: [id number] Patient Instructed: Prescribed order timeframe Bathing guidelines Usage of event button and diary documentation Return of monitor at the end of prescribed order Call with problems [phone] or [phone]. [phone] Patient expresses a good understanding of instructions Rachelle Pearl RN Images from the original note were not included. [facility] SECTION [facility] REGIONAL CARDIOLOGY Cardiology ([facility]) [address] [facility] [id number] OUTPATIENT VISIT DATE 08/28/2023 PRIMARY CARE PHYSICIAN: Usman Patel [address] [place] [address] REFERRING PHYSICIAN: Temitope Lara [address] [facility] [address] CHIEF COMPLAINT: Dizziness HISTORY OF PRESENT ILLNESS: [...] (HCC) 06/27/2014 Peroneal DVT (deep venous thrombosis) ([facility]) 09/05/2013 Right spastic hemiparesis ([facility]) 06/27/2014 Screening for malignant neoplasm of colon 02/01/2016 Seasonal allergic rhinitis Spring through . Seizures ([facility]) Small bowel obstruction ([facility]) Suspected chronic obstructive pulmonary disease based on initial evaluation ([facility]) 2017 PAST SURGICAL HISTORY Procedure Laterality Date [...] Aiden Mccrary MD documented in this encounter [facility] 08-28-2023 Instructions Aiden Mccrary MD - 08/28/2023 10:48 AM EST We are ordering an Echocardiogram, Carotid ultrasound and a heart monitor documented in this encounter [facility] 08-28-2023 Note HNO ID: [id number] Author: AIDEN MCCRARY MD Service: ? Author Type: Physician Type: Progress Notes Filed: 08/28/2023 11:43 Note Text: [facility]AL CARDIOLOGY Cardiology ([facility]) [address] [facility] [id number] OUTPATIENT VISIT DATE 08/28/2023 PRIMARY CARE PHYSICIAN: Usman Patel [address] [place] [address] REFERRING PHYSICIAN: Temitope Lara [address] [facility] [address] CHIEF COMPLAINT: Dizziness HISTORY OF PRESENT ILLNESS: [...] (HCC) 06/27/2014 Peroneal DVT (deep venous thrombosis) ([facility]) 09/05/2013 Right spastic hemiparesis ([facility]) 06/27/2014 Screening for malignant neoplasm of colon 02/01/2016 Seasonal allergic rhinitis Spring through . Seizures ([facility]) Small bowel obstruction (HCC) Suspected chronic obstructive pulmonary disease based on initial evaluation ([facility]) 2017 PAST SURGICAL HISTORY Procedure Laterality Date [...] artery are norm (more content not included)... [facility] 08-15-2023 Note HNO ID: [id number] Author: MARAH THOMAS RT(R) Service: ? Author [...] PATIENT PRESENTS WITH AN IMPLANTABLE OR ATTACHED STRAW HAT PRESSER: No RADIOLOGY DEPARTMENT: MR; Exam(s) Completed: Spine: Cervical spine PERIPHERAL IV DATA: Not applicable SIGNED BY: RT Joelle(R) August 15, 2023 1:58 PM [facility] 08-08-2023 Note HNO ID: [id number] Author: MARY KAY BAIRES, PT, DPT Service: [...] he is requesting to transfer to the [facility] which is closer to home. He demonstrates [...] Patient to be seen for Therapeutic exercise (31965), Neuromuscular re-education (42149), Therapeutic activities (13978), Self-snf management (63177), Gait Training (02028) PLAN FOR NEXT VISIT: Gait and balance training. Functional strengthening. Transfer of Care Due To: Closer to Home Patient transferring care to: [facility] SUBJECTIVE: J Luis returns for first follow up since his eval; he is limited in ability to attend PT at this clinic due to distance from home and reliance on others for transportation. He would like to transfer to the [facility] clinic. He denies falls since his last [...] and purpose f (more content not included)... [facility] 07-19-2023 Note HNO ID: [id number] Author: Temitope Lara PA-C Service: ? Author Type: Physician Canoe Builder Type: Progress Notes Filed: 07/19/2023 4:16 PM Note Text: Neurology Outpatient Clinic Date: July 19, 2023 Patient Name: J Luis Madera Referring physician: Usman Patel [address] [phone] Consult requested for dizziness by Dr. Patel. Recommendations will be communicated via shared medical record or US mail. Primary physician: Usman Patel [address] [phone] Reason for Evaluation: Dizziness and seizures Subjective [...] He is here for established care with [facility] epilepsy department again. No seizure was reported [...] niece called EMS and he was transported [facility]. Reported that his dizziness gets worse with standing but denies any presyncope or lightheaded sensation, described more of a room spinning dizziness. Improves when he sits down or lays down, has difficulty stating how often it occurs but notes that he falls from this dizziness once or twice a month. MRI obtained at [facility] showed no acute infarct and stable chronic changes. Patient does not remember much about his admission, states that no scans were obtained and has difficulty remembering. Notes that he has passed out in the past secondary to this dizziness and he estimates the last occurrence was 6 to 12 months ago. Denies any cardiac workup, states that he saw pbx mechanic when he was a child but none [...] a year a (more content not included)... [facility] 07-14-2023 Note HNO ID: [id number] Author: Elsa Joaquin, PT Service: ? Author Type: Physical Therapist [...] Planned: 8 Planned Treatment Interventions: Therapeutic exercise (53384), Neuromuscular re-education (45408), Therapeutic activities (17731) PLAN FOR NEXT VISIT: neuro training, LE flexibility, balance ex, and neuro tx Patient demonstrates good understanding of plan of care and treatment. The above goals and plan of care were discussed and agreed upon by patient/family. SUBJECTIVE: pt reports he is not sure why he was sent to come here vs [facility], due to the long drive, here and [...] Flexibility Flexibility: Hip (more content not included)... [facility] 06-27-2023 History of Presen t illness Narrative Noted; will discuss at his follow up appt Usman Patel MD TRANSITION CARE MANAGEMENT (TCM) INITIAL CONTACT [employer] Outreach Provider Action/FYI: Patient calls and states [...] might be hidden SUMMARY: -Pt discharged from [facility] on 06/25/23. -Admitted for: dizziness Do you [...] hospitalization: Care Everywhere documented in this encounter [facility] 06-26-2023 Miscellaneous Notes I agree with [...] weak and he needs to go to [facility], she can not care for him, she can not get him down the steps to first floor. Advised to call squad and have him go to ER for evaluation, would need 3 day stay at the hospital and then get [facility] placement. documented in this encounter [facility] 06-25-2023 Discharge summary Note Date/Time June 25, 2023 12:25pm [facility] Medical Records Department [address] [place] [address] Discharge Summary 06/25/23 1223 MR#: [id number] Acct: [id number] Name: J LUIS MADERA Rep #:[id number] : 1950 73 From: Kike Putnam PCP: Dr. Usman Patel MD Status:ADARSH [facility]ARK Location: [place]3 RU836-0 Providers Date of Admission: 06/23/23 Date of [...] Self Care Charges/Coding Visit Charges Inpatient E&M: 28436 Disch Hosp >30min 06/25/23 1228 <Electronically signed by Kike Malave MD> Cosigner Signature (if applicable): CC: Dr. Usman Patel MD; Dr. Kike Malave MD~ Signed [facility] Work Phone: 1(150) 538-127812-10-2023 Discharge summary Author Kike Malave [facility] June 25, 2023 12:23pm Note Date/Time June 25, 2023 11:53am [facility] Medical Records Department [address] [place] [address] Instructions for Home/Discharge Instructions 06/25/23 1000 MR#: [id number] Acct: [id number] Name: J LUIS MADERA Rep #:[id number] : 1950 73 From: Kike Putnam PCP: [...] MD; Dr. Raoul Oliver MD ~ Signed [facility] Work Phone: 1(375) 290-784512-09-2023 Progress note Author Kike Malave [facility] June 24, 2023 12:00pm Note Date/Time June 24, 2023 7 :37am [facility] Medical Records Department [address] [place] [address] Progress Note - Hospitalist 06/24/23 0735 MR#: [id number] Acct: [id number] Name: J LUIS MADERA Franco Rep #:[id number] : 1950 73 From: Kike Putnam PCP: Dr. Usman Patel MD Status:AD M [facility] Location: [place]3 CW167-6 Reason for Visit Reason for Visit: Diagnoses [...] (Auto) 71.2 H, Lymph % (Auto)16.1 L, Osborne % (Auto) 8.6, Eos % (Auto) 2.3, [...] Clarity Clear, Urine pH 6.0, Ur Specific Norris 1.015, Urine Protein 15 H, Urine Glucose [...] % (Auto) 57.0, Lymph % (Auto) 24.4, Osborne % (Auto) 11.4 H, Eos % (Auto) [...] history of cerebralpalsy: [facility]. Etiology unclear but patient is asymptomatic [...] DVT: Heparin Charges/Coding Visit Charges Inpatient E&M: 15847 Subs Hosp L2 06/24/23 1200 <Electronically signed by Kike Malave MD> Cosigner Signature (if applicable): CC: ~ Signed [facility] Work Phone: 1(358) 120-823012-09-2023 Discharge summary Author Ethan Martinez [facility] June 23, 2023 11:16pm Note Date/Time June 23, 2023 2 :12pm [facility] Medical Records Department [address] [place] [address] Emergency Department Summary 06/23/23 MR#: [id number] Acct: [id number] Name: J LUIS MADERA Rep #:[id number] : 1950 73 From: Ethan Martinez DO PCP: Dr. Usman Patel MD Status:AD M [facility] Location: [place]3 ML662-4 HPI History of Present Illness Chief Complaint: [...] palsy but normally ambulates on his own. [facility] Medical History (Updated 06/23/23 @ 16:[address] Ehtan Martinez DO) COPD with exacerbation DVT of [...] 71.2 H Lymph % (Auto) 16.1 L Osborne % (Auto) 8.6 Eos % (Auto) 2.3 [...] Clarity Clear Urine pH 6.0 Ur Specific Norris 1.015 Urine Protein 15 H Urine Glucose [...] palsy, Generalized weakness Disposition Disposition: Acute Care [facility] What to do if you have Problems For any increased pain, shortness of breath, bleeding, nausea or vomiting, chestpain, or any unexpected problems, contact your Primary Care Provider. Call [facility] ([phone]) or report to the closest Emergency Room. Call 911 if necessary. 06/23/23 7276 <Electronically signed by Ethan Martinez DO> Cosigner Signature (if applicable): CC: Dr. Usman Patel MD ~ Signed [facility] Work Phone: 1(878) 450-599912-08-2023 History and physical note Author Raoul Oliver [facility] June 23, 2023 6:57pm Note Date/Time June 23, 2023 5 :22pm [facility] Medical Records Department [address] [place] [address] H&P Exam - Hospitalist 06/23/23 1715 MR#: [id number] Acct: [id number] Name: J LUIS MADERA Rep #:[id number] : 1950 73 From: Raoul ly MD PCP: Dr. Usman Patel MD Status:AD M [facility] Location: [facility] [place] [id number] HPI - General General Date of Admission: [...] any change in his baseline neurological functioning. [facility] Medical History (Updated 06/23/23 @ 16:36 by [...] (Auto) 71.2 H, Lymph % (Auto)16.1 L, Osborne % (Auto) 8.6, Eos % (Auto) 2.3, [...] Clarity Clear, Urine pH 6.0, Ur Specific Norris 1.015, Urine Protein 15 H, Urine Glucose [...] with colleagues Charges/Coding Visit Charges Inpatient E&M: 69084 Init Hosp L3 06/23/231856 <Electronically signed by Raoul Oliver MD> Cosigner Signature (if applicable): CC: Dr. Usman Patel MD; Dr. Raoul Oliver MD~ Signed [facility] Work Phone: 1(523) 614-104711-16-2023 Miscellaneous Notes* Telephone Encounter - Renee Quintanilla [...] you. Tyra Frazier LPN. documented in this encounterProvidence [facility]11-01-2023 Instructions* Patient Instructions* Shayna Frias APRN.CNP - 05/17/2023 2:16 PM EDT Get fasting labs done, no food 10 hours prior, water and black coffee are okay Get flu vaccine next week when you are feeling better Continue medications as prescribed Follow up in 6 months or sooner as needed documented in this encounterProvidence Hospital11-01-2023 History of Present illness Narrative* Shayna [...] like 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 Shayna Frias APRN.OUTPATIENT PSYCHIATRIST documented in this encounterProvidence Hospital08-14-2023 Miscellaneous Notes* Telephone Encounter - Renee [...] reports that he fell on Monday02/24/23 at [facility] when he was getting up to go the restroom. Notes he made a turn to quickly and lost his balance. States that his right foot buckled on him, causing him to go sideways causing him to fall on his bad foot. He broke a couple of bones in his ankle of his already bad food. Was seen at [facility], this is where they gave him [...] AM EDT Patient fell 02/24 at the [facility], he hurt his right foot. They advised him to let Dr. Patel know. Patient also has some questions regarding the brace they gave him. Please review and advise. Kimmy Webb documented in this encounterProvidence Hospital05-11-2023 History of Present illness Narrative* Terri Tomas, RT(R) - 11/24/2022 3:00 PM EDT Radiology [...] 24, 2022 4:07 PM documented in this encounterProvidence Hospital05-02-2023 History of Present illness Narrative* Brenda [...] 15, 2022 2:02 PM documented in this encounterProvidence Hospital03-06-2023 Miscellaneous Notes* Telephone Encounter - Jolly [...] pulmonology. Shayna Frias APRN.GERA documented in this encounterProvidence Hospital02-28-2023 Procedure note* CHELSY Tovar - 09/13/2022 [...] 2022 TIME: 1:23 PM documented in this encounterProvidence Hospital02-28-2023 History of Present illness Narrative* CHELSY Tovar - 09/13/2022 1:21 PM EST PULM FUNCTION SMARTBLOCK: Provider: Shayna Frias APRN.OUTPATIENT PSYCHIATRIST Assisting Tech: CHELSY Tovar Spirometry w/BD: 1 LV - Box: 1 Exhaled Nitric Oxide: 1 documented in this encounterProvidence Hospital02-23-2023 History of Present illness Narrative* Shayna Frias APRN.OUTPATIENT PSYCHIATRIST - 09/08/2022 2:20 PM EST This is [...] APRN.CNP This note was partially generated using [employer] voice recognition system. Note was reviewed for accuracy. There may be minor misspellings or grammar miscues with [employer] voice recognition. documented in this encounterProvidence Hospital02-23-2023 Instructions* Patient Instructions* Shayna Frias APRN.CNP - 09/08/2022 2:15 PM EST Schedule Chest CT scan Complete pulmonary tests Continue to take all medication as prescribed. Follow up pending test results or sooner as needed. documented in this encounterProvidence Hospital02-22-2023 Miscellaneous Notes* Telephone Encounter - Salima [...] insurance info is in. documented in this encounterProvidence Hospital02-09-2023 Miscellaneous Notes* Telephone Encounter - Jolly [...] has any questions. Thank you. Shayna Frias APRN.GERA documented in this encounterProvidence Hospital02-08-2023 Instructions* Patient Instructions* Shayna Frias APRN.CNP [...] to prevent muscle stiffness. documented in this encounterProvidence Hospital02-08-2023 History of Present illness Narrative* Shayna [...] or wheezing. - May continue to use [id number] cold and cough medications as needed. - [...] APRN.GERA This note was partially generated using [employer] voice recognition system. Note was reviewed for accuracy. There may be minor misspellings or grammar miscues with [employer] voice recognition. documented in this encounterProvidence Hospital12-27-2022 Miscellaneous Notes* Telephone Encounter - Norma Rogers Ma - 07/12/2022 3:02 PM EST faxed * Telephone Encounter - Norma Rogers Ma - 07/12/2022 12:36 PM EST Patient has been identified by name and date of : Yes, Provider Jorge Date 07/12/22 Time 12:36 pm Type of form: plan of care Form received via: [employer] [place] When form is completed, fax form to fax number provided. Form has been forwarded to: Provider's desk. Provider name: Jorge Rogers Ma documented in this encounterProvidence Hospital11-25-2022 Miscellaneous Notes* Telephone Encounter - Roger Pfeiffer RN - 06/10/2022 3:04 PM EST See 05-24-22 encounter. Patient returned call and given provider's message. 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 Reports there was a week he missed taking the levothyroxine 88 mcg, because he had to wait until his money came. Patient agreeable to return tolab in 2 mths for recheck. documented in this encounterProvidence Hospital11-10-2022 Miscellaneous Notes* Telephone Encounter - Norma Rogers Ma - 05/26/2022 9:17 AM EST [employer] message sent to pt, asking them to [...] Provider: FRITZ GRANADOS APRN.CNP documented in this encounterProvidence Hospital11-01-2022 History of Present illness Narrative* Usman Patel MD - 05/17/2022 3:00 PM EDT Chief Complaint Patient presents with: 6 Month Exam Immunizations: Flu vaccination HPI J Luis Madera is a 72 year old male who presents here today for 6 month follow up. Goes to [facility] 3 days/week. 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 Norma Rogers Ma documented in this encounterProvidence Hospital05-25-2022 History of Present illness Narrative* Lora Nunes RN - 12/08/2021 1:51 PM EDT [employer] Enrollment Provider Action/FYI: MyChart message introducing [employer] program sent to pt. Will outreach pt x1-2 days. Patient referred by: [facility] Berenice Contact made with patient: No - Unable to leave message: (Keep encounter open and attempt 2nd outreach in two business days from today). END OUTREACH Lora Nunes RN December 08, 2021 1:53 PM documented in this encounterProvidence Hospital05-10-2022 History of Present illness Narrative* RT Nimisha(Franco) - 11/23/2021 2:20 PM EDT Radiology Service [...] 23, 2021 3:23 PM documented in this encounterProvidence Hospital04-29-2022 Miscellaneous Notes* Telephone Encounter - Norma Rogers Ma - 11/12/2021 2:03 PM EDT Pt notified of results via [employer]. Norma Rogers Ma * Telephone Encounter - Usman Patel MD - 11/12/2021 2:01 PM EDT Please notify patient that his blood test results look OK; stay on the same medications and follow up in 6 months as planned Usman Patel MD documented in this encounterProvidence Hospital01-28-2022 History of Present illness Narrative* Sylvia [...] 13, 2021 4:21 PM documented in this encounterProvidence Hospital12-12-2014 History of Past illness Narrative* Problem Noted Date Resolved Date Partial small bowel obstruction 06/27/2014 12/02/2016 Peroneal DVT (deep venous thrombosis) 09/05/2013 06/27/2014 ASA CLASS III 05/10/2002 10/30/2018 documented as of this encounter (statuses as of 11/12/2021) [facility] of Past illness Narrative* Problem Noted Date Resolved Date Partial small bowel obstruction 06/27/2014 12/02/2016 Peroneal DVT (deep venous thrombosis) 09/05/2013 06/27/2014 ASA CLASS III 05/10/2002 10/30/2018 documented as of this encounter (statuses as of 11/24/2021) [facility] of Past illness Narrative* Problem Noted Date Resolved Date Partial small bowel obstruction 06/27/2014 12/02/2016 Peroneal DVT (deep venous thrombosis) 09/05/2013 06/27/2014 ASA CLASS III 05/10/2002 10/30/2018 documented as of this encounter (statuses as of 12/08/2021) [facility] Narrative* Problem Noted Date Resolved Date Partial small bowel obstruction 06/27/2014 12/02/2016 Peroneal DVT (deep venous thrombosis) 09/05/2013 06/27/2014 ASA CLASS III 05/10/2002 10/30/2018 documented as of this encounter (statuses as of 05/17/2022) [facility] Narrative* Problem Noted Date Resolved Date Partial small bowel obstruction 06/27/2014 12/02/2016 Peroneal DVT (deep venous thrombosis) 09/05/2013 06/27/2014 ASA CLASS III 05/10/2002 10/30/2018 documented as of this encounter (statuses as of 05/27/2022) [facility] Narrative* Problem Noted Date Resolved Date Partial small bowel obstruction 06/27/2014 12/02/2016 Peroneal DVT (deep venous thrombosis) 09/05/2013 06/27/2014 ASA CLASS III 05/10/2002 10/30/2018 documented as of this encounter (statuses as of 07/18/2022) [facility] Narrative* Problem Noted Date Resolved Date Partial small bowel obstruction 06/27/2014 12/02/2016 Peroneal DVT (deep venous thrombosis) 09/05/2013 06/27/2014 ASA CLASS III 05/10/2002 10/30/2018 documented as of this encounter (statuses as of 08/25/2022) [facility] Narrative* Problem Noted Date Resolved Date Partial small bowel obstruction 06/27/2014 12/02/2016 Peroneal DVT (deep venous thrombosis) 09/05/2013 06/27/2014 ASA CLASS III 05/10/2002 10/30/2018 documented as of this encounter (statuses as of 08/25/2022) [facility] Narrative* Problem Noted Date Resolved Date Partial small bowel obstruction 06/27/2014 12/02/2016 Peroneal DVT (deep venous thrombosis) 09/05/2013 06/27/2014 ASA CLASS III 05/10/2002 10/30/2018 documented as of this encounter (statuses as of 09/08/2022) [facility] Narrative* Problem Noted Date Resolved Date Partial small bowel obstruction 06/27/2014 12/02/2016 Peroneal DVT (deep venous thrombosis) 09/05/2013 06/27/2014 ASA CLASS III 05/10/2002 10/30/2018 documented as of this encounter (statuses as of 09/08/2022) [facility] Narrative* Problem Noted Date Resolved Date Partial small bowel obstruction 06/27/2014 12/02/2016 Peroneal DVT (deep venous thrombosis) 09/05/2013 06/27/2014 ASA CLASS III 05/10/2002 10/30/2018 documented as of this encounter (statuses as of 09/13/2022) [facility] Narrative* Problem Noted Date Resolved Date Partial small bowel obstruction 06/27/2014 12/02/2016 Peroneal DVT (deep venous thrombosis) 09/05/2013 06/27/2014 ASA CLASS III 05/10/2002 10/30/2018 documented as of this encounter (statuses as of 09/19/2022) [facility] Narrative* Problem Noted Date Resolved Date Partial small bowel obstruction 06/27/2014 12/02/2016 Peroneal DVT (deep venous thrombosis) 09/05/2013 06/27/2014 ASA CLASS III 05/10/2002 10/30/2018 documented as of this encounter (statuses as of 11/10/2022) [facility] Narrative* Problem Noted Date Diagnosed Date Resolved Date Partial small bowel obstruction 06/27/2014 12/02/2016 Peroneal DVT (deep venous thrombosis) 09/05/2013 06/27/2014 ASA CLASS III 05/10/2002 10/30/2018 documented as of this encounter (statuses as of 02/28/2023) [facility] Narrative* Problem Noted Date Diagnosed Date Resolved Date Partial small bowel obstruction 06/27/2014 12/02/2016 Peroneal DVT (deep venous thrombosis) 09/05/2013 06/27/2014 ASA CLASS III 05/10/2002 10/30/2018 documented as of this encounter (statuses as of 05/18/2023) [facility] Narrative* Problem Noted Date Diagnosed Date Resolved Date Partial small bowel obstruction 06/27/2014 12/02/2016 Peroneal DVT (deep venous thrombosis) 09/05/2013 06/27/2014 ASA CLASS III 05/10/2002 10/30/2018 documented as of this encounter (statuses as of 05/20/2023) [facility] Narrative* Problem Noted Date Diagnosed Date Resolved Date Partial small bowel obstruction 06/27/2014 12/02/2016 Peroneal DVT (deep venous thrombosis) 09/05/2013 06/27/2014 ASA CLASS III 05/10/2002 10/30/2018 documented as of this encounter (statuses as of 06/02/2023) [facility]* Problem Noted Date Diagnosed Date Resolved Date Partial small bowel obstruction 06/27/2014 12/02/2016 Peroneal DVT (deep venous thrombosis) 09/05/2013 06/27/2014 ASA CLASS III 05/10/2002 10/30/2018 documented as of this encounter (statuses as of 06/27/2023) [facility] Narrative* Problem Noted Date Diagnosed Date Resolved Date Partial small bowel obstruction 06/27/2014 12/02/2016 Peroneal DVT (deep venous thrombosis) 09/05/2013 06/27/2014 ASA CLASS III 05/10/2002 10/30/2018 documented as of this encounter (statuses as of 06/28/2023) [facility] Narrative* Problem Noted Date Diagnosed Date Resolved Date Partial small bowel obstruction 06/27/2014 12/02/2016 Peroneal DVT (deep venous thrombosis) 09/05/2013 06/27/2014 ASA CLASS III 05/10/2002 10/30/2018 documented as of this encounter (statuses as of 08/28/2023) [facility] Narrative* Problem Noted Date Diagnosed Date Resolved Date Partial small bowel obstruction 06/27/2014 12/02/2016 Peroneal DVT (deep venous thrombosis) 09/05/2013 06/27/2014 ASA CLASS III 05/10/2002 10/30/2018 documented as of this encounter (statuses as of 10/20/2023) [facility] Narrative* Problem Noted Date Diagnosed Date Resolved Date Partial small bowel obstruction 06/27/2014 12/02/2016 Peroneal DVT (deep venous thrombosis) 09/05/2013 06/27/2014 ASA CLASS III 05/10/2002 10/30/2018 documented as of this encounter (statuses as of 10/20/2023) [facility]* Diagnosis Lung nodules Other nonspecific abnormal finding of lung field [facility] encounter [facility]* Diagnosis Hypothyroidism, acquired- Primary Unspecified [...] unspecified type (HCC) [facility] encounter [facility]* Diagnosis Hypothyroidism, acquired Unspecified hypothyroidism [facility] Sinobronchitis- Primary Unspecified sinusitis (chronic) [facility]* Diagnosis Cough, unspecified type- Primary SOB (shortness of breath) Shortness of breath COPD with chronic bronchitis (HCC) Obstructive chronic bronchitis without exacerbation [facility] encounter [facility]* Diagnosis SOB (shortness of breath) Shortness of breath COPD with chronic bronchitis (HCC) Obstructive chronic bronchitis without exacerbation documented in this encounter [facility] note* Diagnosis SOB (shortness of breath) Shortness of breath COPD with chronic bronchitis (HCC) Obstructive chronic bronchitis without exacerbation documented in this encounter [facility] noteNo assessment information availableWMercy Health St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 Imbalance Abnormality of gait COPD with chronic bronchitis Obstructive chronic bronchitis without exacerbation Hypothyroidism, acquired Unspecified hypothyroidism Cerebral palsy, unspecified type (HCC) Prostate cancer screening Special screening for malignant neoplasm of prostate Dyslipidemia, goal LDL below 100 Other and unspecified hyperlipidemia documented in this encounter [facility] note* Diagnosis Lung nodules Other nonspecific abnormal finding of lung field documented in this encounter [facility] note* Diagnosis Screening for AAA (abdominal aortic aneurysm) Screening for other and unspecified cardiovascular conditions documented in this encounter [facility] note* Diagnosis Hypothyroidism, acquired Unspecified hypothyroidism documented in this encounter [facility] note* Diagnosis Onset Date Resolution Status Dizziness acute Generalized weakness acute Hx of cerebral palsy acute [facility] Work Phone: Evaluation note* Diagnosis Syncope and collapse Vasovagal syncope Syncope and collapse Palpitations documented in this encounter [facility] note* Diagnosis Hypothyroidism, acquired- Primary Unspecified hypothyroidism Balance problem Other symptoms involving nervous and musculoskeletal systems Dizziness Dizziness and giddiness 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) Obstructive chronic bronchitis without exacerbation Cerebral palsy, unspecified type (HCC) documented in this encounter [facility] note* Diagnosis Hypothyroidism, acquired Unspecified hypothyroidism documented in this encounter [facility] note* Diagnosis Suspected COVID-19 virus infection documented in this encounter [facility] for referral (narrative)* Diagnostic Procedure Only (Routine) - Closed Specialty Diagnoses / Procedures Referred By Dov t Referred To Contact CT IMAGING Diagnoses Lung nodules Procedures CT CHEST WO IVCON DIAGNOSTIC COMPUTED TOMOGRAPHY THORAX W/O Usman Crandall MD [address] [place] [address] Ct Imaging Referral ID Status Reason Start Date Expiration Date Visits Re quested Visits Authorized [id number] Closed 11/23/2021 12/23/2021 1 1 [facility] for referral (narrative)* Outpatient Procedure (Routine) - Authorized Specialty Diagnoses / Procedures Referred By Contac t Referred To Contact [facility] Diagnoses SOB (shortness of breath) COPD with chronic bronchitis (HCC) Procedures LUNG VOLUMES Shayna Frias APRN.CNP [address] [place] [address] [address] Referral ID Status Reason Start Date Expiration Date Visits Requested Visits Authorized [id number] Authorized Auto-Generat ed Referral 09/08/2022 07/16/2023 1 1 * Outpatient Procedure (Routine) - Authorized Specialty Diagnoses / Procedures Referred By Contac t Referred To [facility] Diagnoses SOB (shortness of breath) COPD with chronic bronchitis (HCC) Procedures NITRIC OXIDE, EXHALED NITRIC OXIDE GAS DETERMINATION Shayna Frias APRN.OUTPATIENT PSYCHIATRIST [address] [place] [address] [address] Referral ID Status Reason Start Date Expiration Date Visits Requested Visits Authorized [id number] Authorized Auto-Generat ed Referral 09/08/2022 10/08/2023 1 1 * Outpatient Procedure (Routine) - Authorized Specialty Diagnoses / Procedures Referred By Contac t Referred To [facility] Diagnoses SOB (shortness of breath) COPD with chronic bronchitis (HCC) Procedures SPIROMETRY - BASELINE AND POST DILATOR BRNCDILAT RSPSE SPMTRY PRE&POST-BRNCDILAT ADMN Shayna Frias APRN.CNP [address] [place] [address] [address] Referral ID Status Reason Start Date Expiration Date Visits Requested Visits Authorized [id number] Authorized Auto-Generat ed Referral 09/08/2022 10/08/2023 1 1 [facility] for referral (narrative)* Diagnostic Procedure Only (Routine) - Closed Specialty Diagnoses / Procedures Referred By Contac t Referred To Contact [facility] IMAGING Diagnoses Screening for AAA (abdominal aortic aneurysm) Procedures US SCREENING FOR AAA (2017) US ABDOMINAL AORTA REAL TIME SCREEN STUDY AAA Usman Patel MD [address] [place] [address] [place] [address] Referral ID Status Reason Start Date Expiration Date V isits Requested Visits Authorized [id number] Closed Auto-Generate d Referral 11/14/2022 12/14/2023 1 1 [facility] for referral (narrative)* Outpatient Procedure (Routine) - Authorized Specialty Diagnoses / Procedures Referred By Contac t Referred To Contact [facility] Diagnoses Syncope and collapse Procedures US CAROTID ARTERIES LISHA VAS LAB DUPLEX SCAN EXTRACRANIAL ART COMPL BI STUDY Aiden Mccrary MD [address] [place] [id number] [facility] [address] [place] [address] Referral ID Status Reason Start Date Expiration Date Visits Requested Visits Authorized [id number] Authorized Auto-Generat ed Referral 08/28/2023 08/27/2024 1 1 * Outpatient Procedure (Routine) - Authorized Specialty Diagnoses / Procedures Referred By Contac t Referred To [facility] Diagnoses Syncope and collapse Palpitations Procedures ECHO ECHO TTHRC R-T 2D W/WOM-MODE COMPL SPEC&COLR D Aiden Mccrary MD [address] [place] [address] [facility] [address] [address] Referral ID Status Reason Start Date Expiration Date Visits Requested Visits Authorized [id number] Authorized Auto-Generat ed Referral 08/28/2023 10/26/2023 2 1 L [facility] for referral (narrative)No reason for referral information availableWMercy Health St. [facility] Work Phone: Advance Directives No Advanced Directives Records FoundDocuments on File Type Date Recorded Patient Engineer Exhauster Expl anation Advance Directive(s) Advance Directive(s) 02/01/2016 9:58 AM Advance Directive(s) 12/25/2015 9:25 AM Documents on File Type Date Recorded Patient Engineer Exhauster Expl anation Advance Directive(s) Advance Directive(s) 02/01/2016 9:58 AM Advance Directive(s) 12/25/2015 9:25 AM Advance Directive Response Recorded Date/ Time Advance Directives No August 02, 2013 10:12pm Living Will No February 24 7:04pm Power of Senior Technical Support Engineer No February 24 023 7:04pm Advance Directive Response Recorded Date/ Time Advance Directives No August 02, 2013 9:12pm Living Will No June 23 8:10pm Power of Senior Technical Support Engineer No June 23, 2023 8:10pm Advance Directive [...] of cerebral palsy Chief Complaint Admit Date [facility] WORK July 23, 2024 4:50am [facility] August 20, 2024 5:00am LABWORK September 03, 2024 5:00am [facility] September 17, 2024 4: 00am Chief Complaint Admit Date [facility] WORK July 23, 2024 4:50am [facility] August 20, 2024 5:00am LABWORK September 03, 2024 5:00am [facility] WORK September 17, 2024 4: 00am [facility] October 04, 2024 5 :00am Chief Complaint Admit Date [facility] August 20, 2024 5:00am LABWORK September 03, 2024 5:00am [facility] September 17, 2024 4: 00am [facility] October 04, 2024 5 :00am [facility] October 15, 2024 5: 00am LABWORK November 26, 2024 5:00a m Chief Complaint Admit Date LABWORK September 03, 2024 5:00am [facility] September 17, 2024 4: 00am [facility] October 04, 2024 5 :00am [facility] October 15, 2024 5: 00am [facility] November 19, 2024 5:00 am LABWORK November 26, 2024 5:00a m Chief Complaint Admit Date [facility] September 17, 2024 4: 00am [facility] October 04, 2024 5 :00am [facility] October 15, 2024 5: 00am Monthly Exam October 15, 2024 5:11 pm [facility] November 19, 2024 5:00 am LABWORK November 26, 2024 5:00a m Chief Complaint Admit Date [facility] October 04, 2024 5 :00am [facility] October 15, 2024 5: 00am Monthly Exam October 15, 2024 5:11 pm [facility] November 19, 2024 5:00 am LABWORK November 26, 2024 5:00a m [facility] December 17, 2024 5:0 0am MONTHLY EXAM December 24, 2024 3:15 pm [facility] January 14, 2025 5:0 0am Chief Complaint Admit Date [facility] October 15, 2024 5: 00am Monthly Exam October 15, 2024 5:11 pm MONTHLY EXAM November 18, 2024 2:51pm [facility] November 19, 2024 5:00 am LABWORK November 26, 2024 5:00a m [facility] December 17, 2024 5:0 0am MONTHLY EXAM December 24, 2024 3:15 pm [facility] January 07, 2025 5: 00am [facility] January 14, 2025 5:0 0am Chief Complaint Admit Date MONTHLY EXAM November 18, 2024 2:51pm [facility] November 19, 2024 5:00 am LABWORK November 26, 2024 5:00a m [facility] December 17, 2024 5:0 0am MONTHLY EXAM December 24, 2024 3:15 pm [facility] January 07, 2025 5: 00am [facility] January 14, 2025 5:0 0am Monthly Exam February 06, 2025 11:2 1am Chief Complaint Admit Date MONTHLY EXAM November 18, 2024 2:51pm [facility] November 19, 2024 5:00 am LABWORK November 26, 2024 5:00a m [facility] December 17, 2024 5:0 0am MONTHLY EXAM December 24, 2024 3:15 pm [facility] January 07, 2025 5: 00am [facility] January 14, 2025 5:0 0am Monthly Exam February 06, 2025 11:2 1am [facility] February 18, 2025 5 :00am MONTHLY EXAM February 18, 2025 4:2 3pm Chief Complaint Admit Date MONTHLY EXAM December 24, 2024 3:15 pm [facility] January 07, 2025 5: 00am [facility] January 14, 2025 5:0 0am Monthly Exam February 06, 2025 11:2 1am [facility] February 18, 2025 5 :00am MONTHLY EXAM February 18, 2025 4:2 3pm [facility] March 18 5:00am [facility] April 01 5:00am Chief Complaint Admit Date [facility] January 14, 2025 5:0 0am Monthly Exam February 06, 2025 11:2 1am [facility] February 18, 2025 5 :00am MONTHLY EXAM February 18, 2025 4:2 3pm [facility] March 18 5:00am MONTHLY EXAM March 28, 2025 3:11pm [facility] April 01 5:00am [facility] April 22, 2025 6:40am Family [...] TOMOGRAPHY THORAX W/O CNTRST Usman Patel MD [address] [facility] [place] [address] [place] [address] Referral ID Status Reason Start Date Expiration Date V isits Requested Visits Authorized [id number] Closed Auto-Generate d Referral 11/24/2022 12/24/2022 1 1 Summary Purpose Additional Source Comments Source Comments (unrecognize d section and content) In the event this informatio n is protected by the Federal Confidentiality of Alcohol and Drug Abuse Patient Records regulations: The Federal rules restrict any use of the information to criminally investigate or prosecute any alcohol or drug abuse patient.[facility] HospitalIn the event this information is protected by the Federal Confidentiality of Alcohol and Drug Abuse Patient Records regulations: The Federal rules restrict any use of the information to criminally investigate or prosecute any alcohol or drug abuse patient.[facility] HospitalIn the event this information is protected by the Federal Confidentiality of Alcohol and Drug Abuse Patient Records regulations: The Federal rules restrict any use of the information to criminally investigate or prosecute any alcohol or drug abuse patient.[facility] HospitalIn the event this information is protected by the Federal Confidentiality of Alcohol and Drug Abuse Patient Records regulations: The Federal rules restrict any use of the information to criminally investigate or prosecute any alcohol or drug abuse patient.[facility] HospitalIn the event this information is protected by the Federal Confidentiality of Alcohol and Drug Abuse Patient Records regulations: The Federal rules restrict any use of the information to criminally investigate or prosecute any alcohol or drug abuse patient.[facility] HospitalIn the event this information is protected by the Federal Confidentiality of Alcohol and Drug Abuse Patient Records regulations: The Federal rules restrict any use of the information to criminally investigate or prosecute any alcohol or drug abuse patient.[facility] HospitalIn the event this information is protected by the Federal Confidentiality of Alcohol and Drug Abuse Patient Records regulations: The Federal rules restrict any use of the information to criminally investigate or prosecute any alcohol or drug abuse patient.[facility] HospitalIn the event this information is protected by the Federal Confidentiality of Alcohol and Drug Abuse Patient Records regulations: The Federal rules restrict any use of the information to criminally investigate or prosecute any alcohol or drug abuse patient.[facility] HospitalIn the event this information is protected by the Federal Confidentiality of Alcohol and Drug Abuse Patient Records regulations: The Federal rules restrict any use of the information to criminally investigate or prosecute any alcohol or drug abuse patient.[facility] HospitalIn the event this information is protected by the Federal Confidentiality of Alcohol and Drug Abuse Patient Records regulations: The Federal rules restrict any use of the information to criminally investigate or prosecute any alcohol or drug abuse patient.[facility] HospitalIn the event this information is protected by the Federal Confidentiality of Alcohol and Drug Abuse Patient Records regulations: The Federal rules restrict any use of the information to criminally investigate or prosecute any alcohol or drug abuse patient.[facility] HospitalIn the event this information is protected by the Federal Confidentiality of Alcohol and Drug Abuse Patient Records regulations: The Federal rules restrict any use of the information to criminally investigate or prosecute any alcohol or drug abuse patient.[facility] HospitalIn the event this information is protected by the Federal Confidentiality of Alcohol and Drug Abuse Patient Records regulations: The Federal rules restrict any use of the information to criminally investigate or prosecute any alcohol or drug abuse patient.[facility] HospitalIn the event this information is protected by the Federal Confidentiality of Alcohol and Drug Abuse Patient Records regulations: The Federal rules restrict any use of the information to criminally investigate or prosecute any alcohol or drug abuse patient.[facility] HospitalIn the event this information is protected by the Federal Confidentiality of Alcohol and Drug Abuse Patient Records regulations: The Federal rules restrict any use of the information to criminally investigate or prosecute any alcohol or drug abuse patient.[facility] HospitalIn the event this information is protected by the Federal Confidentiality of Alcohol and Drug Abuse Patient Records regulations: The Federal rules restrict any use of the information to criminally investigate or prosecute any alcohol or drug abuse patient.[facility] HospitalIn the event this information is protected by the Federal Confidentiality of Alcohol and Drug Abuse Patient Records regulations: The Federal rules restrict any use of the information to criminally investigate or prosecute any alcohol or drug abuse patient.[facility] HospitalIn the event this information is protected by the Federal Confidentiality of Alcohol and Drug Abuse Patient Records regulations: The Federal rules restrict any use of the information to criminally investigate or prosecute any alcohol or drug abuse patient.[facility] HospitalIn the event this information is protected by the Federal Confidentiality of Alcohol and Drug Abuse Patient Records regulations: The Federal rules restrict any use of the information to criminally investigate or prosecute any alcohol or drug abuse patient.[facility] HospitalIn the event this information is protected by the Federal Confidentiality of Alcohol and Drug Abuse Patient Records regulations: The Federal rules restrict any use of the information to criminally investigate or prosecute any alcohol or drug abuse patient.[facility] HospitalIn the event this information is protected by the Federal Confidentiality of Alcohol and Drug Abuse Patient Records regulations: The Federal rules restrict any use of the information to criminally investigate or prosecute any alcohol or drug abuse patient.[facility] HospitalIn the event this information is protected by the Federal Confidentiality of Alcohol and Drug Abuse Patient Records regulations: The Federal rules restrict any use of the information to criminally investigate or prosecute any alcohol or drug abuse patient.[facility] HospitalIn the event this information is protected by the Federal Confidentiality of Alcohol and Drug Abuse Patient Records regulations: The Federal rules restrict any use of the information to criminally investigate or prosecute any alcohol or drug abuse patient.[facility] HospitalIn the event this information is protected by the Federal Confidentiality of Alcohol and Drug Abuse Patient Records regulations: The Federal rules restrict any use of the information to criminally investigate or prosecute any alcohol or drug abuse patient.[facility] HospitalIn the event this information is protected by the Federal Confidentiality of Alcohol and Drug Abuse Patient Records regulations: The Federal rules restrict any use of the information to criminally investigate or prosecute any alcohol or drug abuse patient.[facility] HospitalIn the event this information is protected by the Federal Confidentiality of Alcohol and Drug Abuse Patient Records regulations: The Federal rules restrict any use of the information to criminally investigate or prosecute any alcohol or drug abuse patient.[facility] HospitalIn the event this information is protected by the Federal Confidentiality of Alcohol and Drug Abuse Patient Records regulations: The Federal rules restrict any use of the information to criminally investigate or prosecute any alcohol or drug abuse patient.[facility] HospitalIn the event this information is protected by the Federal Confidentiality of Alcohol and Drug Abuse Patient Records regulations: The Federal rules restrict any use of the information to criminally investigate or prosecute any alcohol or drug abuse patient.[facility] HospitalIn the event this information is protected by the Federal Confidentiality of Alcohol and Drug Abuse Patient Records regulations: The Federal rules restrict any use of the information to criminally investigate or prosecute any alcohol or drug abuse patient.[facility] HospitalIn the event this information is protected by the Federal Confidentiality of Alcohol and Drug Abuse Patient Records regulations: The Federal rules restrict any use of the information to criminally investigate or prosecute any alcohol or drug abuse patient.[facility] HospitalIn the event this information is protected by the Federal Confidentiality of Alcohol and Drug Abuse Patient Records regulations: The Federal rules restrict any use of the information to criminally investigate or prosecute any alcohol or drug abuse patient.[facility] Reason for Visit (unrecogniz ed section and content) Reason Comments Results Reason Comments Radiology CT Specialty Diagnoses / Procedures Referred By Dov morin Referred To Contact CT IMAGING Diagnoses Lung nodules Procedures CT CHEST WO IVCON DIAGNOSTIC COMPUTED TOMOGRAPHY THORAX W/O KALIT Usman Patel MD [address] [place] [address] Ct Imaging Referral ID Status Reason Start Date Expiration Date Visits Re quested Visits Authorized [id number] Closed 11/23/2021 12/23/2021 1 1 Reason Onset Date Comments [facility] Monitoring 12/08/2021 Enrollme nt Outreach Reason Onset Date Comments 6 Month Exam Immunizations 05/17/2022 Flu vaccination Reason Comments Forms [facility] Reason Comments Acute Visit upper repiratory Reason Comments Results COVID/flu. Reason Comments Appointment Reason Comments Acute Visit headcold/fatique Reason Comments Spirometry Specialty Diagnoses / Procedures Referred By Dov morin Referred To Contact [facility] Diagnoses SOB (shortness of breath) COPD with chronic bronchitis (HCC) Procedures SPIROMETRY - BASELINE AND POST DILATOR BRNCDILAT RSPSE SPMTRY PRE&POST-BRNCDILAT ADMN Shayna Frias, COLIN.OUTPATIENT PSYCHIATRIST [address] [place] [address] [facility] [address] [place] [address] Referral ID Status Reason Start Date Expiration Date V isits Requested Visits Authorized [id number] Closed Auto-Generate d Referral 09/08/2022 10/08/2023 1 1 Specialty Diagnoses / Procedures Referred By Contac t Referred To Contact [facility] Diagnoses SOB (shortness of breath) COPD with chronic bronchitis (HCC) Procedures NITRIC OXIDE, EXHALED NITRIC OXIDE GAS DETERMINATION Shayna Frias APRN.OUTPATIENT PSYCHIATRIST [address] [place] [address] [facility] [address] [place] [id number] Referral ID Status Reason Start Date Expiration Date V isits Requested Visits Authorized [id number] Closed Auto-Generate d Referral 09/08/2022 10/08/2023 1 1 Specialty Diagnoses / Procedures Referred By Contac t Referred To Contact [facility] Diagnoses SOB (shortness of breath) COPD with chronic bronchitis (HCC) Procedures LUNG VOLUMES Shayna Frias APRN.OUTPATIENT PSYCHIATRIST [address] [place] [address] [address] Referral ID Status Reason Start Date Expiration Date V isits Requested Visits Authorized [id number] Closed Auto-Generate d Referral 09/08/2022 07/16/2023 1 [...] TOMOGRAPHY THORAX W/O CNTRST Usman Patel MD [facility] [place] [id number] Imaging [facility] Referral ID Status Reason Start Date Expiration Date V isits Requested Visits Authorized [id number] Closed Auto-Generate d Referral 11/24/2022 12/24/2022 1 1 Reason Comments Radiology US Specialty Diagnoses / Procedures Referred By Contac t Referred To Contact US IMAGING Diagnoses Screening for AAA (abdominal aortic aneurysm) Procedures US SCREENING FOR AAA (2017) US ABDOMINAL AORTA REAL TIME SCREEN STUDY AAA Usman Patel MD [address] [place] [address] [place] [address] Referral ID Status Reason Start Date Expiration Date V isits Requested Visits Authorized [id number] Closed Auto-Generate d Referral 11/14/2022 12/14/2023 1 1 Reason Onset Date Comments Refill Request 06/01/2023 Reason Comments Patient Update Reason Onset Date Comments Transition Of Care 06/27/2023 Reason Comments Consult Specialty Diagnoses / Procedures Referred By Contac t Referred To Contact Cardiology Diagnoses Syncope and collapse Procedures CONSULT TO CARDIOLOGY OFFICE/OUTPATIENT NEW HIGH MDM 60 MINUTES Temitope Lara PA-C [address] [place] [address] Referral ID Status Reason Start Date Expiration Date V isits Requested Visits Authorized [id number] Closed PCP Requested Referral 07/19/2023 07/18/2024 1 1 Reason Comments Forms Orders from [facility] - 90 day Reason Comments F/U 3 Month Reason Comments Forms [facility] 90 d ay order Reason Onset Date Comments Refill Request 03/04/2024 Reason Comments Med Change Request Reason Comments Forms [facility] Reason Comments Forms 90 day order for [facility] Care Teams (unrecognized sec tion and content) 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 Relationship Specialty Start Date End Date Usman Patel MD [address] [place], [place] [address] PCP - General Family Practice 05/10/21 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 Relationship Specialty Start Date End Date Usman Patel MD [address] [place] [address] PCP - General Family Practice 05/10/21 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 Relationship Specialty Start Date End Date Usman Patel MD [address] [place] [address] PCP - General Family Practice 05/10/21 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 Relationship Specialty Start Date End Date Usman Patel MD [address] [place] [address] PCP - General Family Medicine 05/10/21 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 Relationship Specialty Start Date End Date Usman Patel MD [address] [place] [address] PCP - General Family Medicine 05/10/21 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 Relationship Specialty Start Date End Date Usman Patel MD [address] [place] [address] PCP - General Family Medicine 05/10/21 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 Relationship Specialty Start Date End Date Usman Patel MD [address] [place] [address] PCP - General Family Medicine 05/10/21 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 Relationship Specialty Start Date End Date Usman Patel MD [address] [place] [address] PCP - General Family Medicine 05/10/21 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 Relationship Specialty Start Date End Date Usman Patel MD [address] [place] [address] PCP - General Family Medicine 05/10/21 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 Relationship Specialty Start Date End Date Usman Patel MD [address] [place] [address] PCP - General Family Medicine 05/10/21 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 Relationship Specialty Start Date End Date Usman Patel MD [address] [place] [address] PCP - General Family Medicine 05/10/21 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 Nakul Lopez III, MD Family Provider Active Dr. Usman Patel MD Primary Care Provider Active Team Status: Inactive Member Role Status Dates Dr. Prince Zimmer DO Emergency Provider Active Dr. 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 Relationship Specialty Start Date End Date Usman Patel MD [address] [place] [address] PCP - General Family Medicine 05/10/21 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 Relationship Specialty Start Date End Date Usman Patel MD [address] [place] [address] PCP - General Family Medicine 05/10/21 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 Relationship Specialty Start Date End Date Usman Patel MD [address] [place] [address] PCP - General Family Medicine 05/10/21 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 Relationship Specialty Start Date End Date Usman Patel MD [address] [place] [address] PCP - General Family Medicine 05/10/21 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 Usman Patel MD Primary Care Provider Active Start: December 17, 2024 Jolly MÉNDEZ RN [facility] Attending Provider Active Start: December 17, 2024 [...] 2024 End: October 15, 2024 Jolly MÉNDEZ RN [facility] Attending Provider Active Start: October 15, 2024 [...] 2024 End: November 19, 2024 Jolly MÉNDEZ RN [facility] Attending Provider Active Start: November 19, 2024 [...] Active Start: December 17, 2024 Jolly MÉNDEZ RN [facility] Attending Provider Active Start: December 17, 2024 [...] Active Start: January 14, 2025 Jolly MÉNDEZ RN [facility] Attending Provider Active Start: January 14, 2025 Team Status: Inactive Member Role/Relationship Status Dates Dr. Usman Patel MD Primary Care Provider Active Start: October 15, 2024 End: October 15, 2024 Jolly MÉNDEZ, RN [facility] Attending Provider Active Start: October 15, 2024 [...] 2024 End: November 18, 2024 Jolly Macdonald NP RN [facility] Attending Provider Active Start: November 18, 2024 End: November 18, 2024 Team Status: Inactive Member Role/Relationship Status Dates Dr. Usman Patel MD Primary Care Provider Active Start: November 18, 2024 End: November 18, 2024 Jolly Macdonald NP RN [facility] Attending Provider Active Start: November 18, 2024 [...] Active Start: January 14, 2025 Jolly MÉNDEZ RN [facility] Attending Provider Active Start: January 14, 2025 [...] Care Provider Active Start: March 18, 2025 Jolly MÉNDEZ NP-C Attending Provider Active Start: March 18, 2025 [...] 14, 2025 End: January 14, 2025 Jolly MÉNDEZ NP-C Attending physician Active Start: January 14, 2025 End: January 14, 2025 Team Status: Inactive Member Role/Relationship Status Dates Dr. Usman Patel MD Primary care physician Active Start: February 06, 2025 End: February 06, 2025 Poornima LOTT PA Attending physician Active S tart: February 06, [...] physician Active Start: March 18, 2025 Jolly MÉNDEZ RN [facility] Attending physician Active Start: March 18, 2025 Team Status: Active Member Role/Relationship Status Dates Dr. Usman Patel MD Primary care physician Active Start: April 01, 2025 Jolly MÉNDEZ RN [facility] Attending physician Active Start: April 01, 2025 Team Status: Inactive Member Role/Relationship Status Dates Dr. Usman Patel MD Primary care physician Active Start: January 14, 2025 End: January 14, 2025 Jolly MÉNDEZ RN [facility] Attending physician Active Start: January 14, 2025 [...] physician Active Start: March 18, 2025 Jolly MÉNDEZ RN [facility] Attending physician Active Start: March 18, 2025 Team Status: Inactive Member Role/Relationship Status Dates Dr. Usman Patel MD Primary care physician Active Start: March 28, 2025 End: March 28, 2025 Jolly Macdonald NP RN [facility] Attending physician Active Start: March 28, 2025 End: March 28, 2025 Team Status: Active Member Role/Relationship Status Dates Dr. Usman Patel MD Primary care physician Active Start: April 01, 2025 BETHANIE Casanova Attending physician Active Start: April 01, 2025 Team Status: Active Member Role/Relationship Status Dates Dr. Usman Patel MD Primary care physician Active Start: April 22, 2025 BETHANIE Casanova Attending physician Active Start: April 22, 2025 [...] section and content) DATE CREATED AUTHOR 10/06/2023 [facility] DATE CREATED AUTHOR AUTHOR'S ORGANIZ ATION 07/05/2024 [facility] DATE CREATED AUTHOR AUTHOR'S ORGANIZ ATION 05/21/2025 [facility] FOR RECORDS PERTAINING TO PATIENTS WHO ARE [...] BE BASED ON THE PRIMARY CLINICAL RECORDS. [email or web address] [facility]. provides no warranty or guarantee of the accuracy or completeness of information in this document.
[2025-06-17 08:04] LABS: Hematocrit 35.5 % (40-54); Hemoglobin 11.6 g/dL (13.0-16.5); Immature Granulocytes Count 0.030 X10^3/uL (0.0-0.0); Mean Corp Hgb Conc 32.7 g/dL (32-36); Mean Corpuscular Volume 100.3 fL (80-94); Mean Platelet Vol. 10.1 fl (6.2-12.0); NRBC Flagged by Analyzer 0 % (0-5); Platelet Count 223 K/mm3 (150-450); RBC Distribution Width CV 12.3 % (11.6-14.6); RBC Distribution Width SD 45.4 fl (35.1-43.9); Red Blood Count 3.54 M/mm3 (4.6-6.2); White Blood Count 5.7 K/mm3 (4.4-11.0)
[2025-06-17 08:42] LABS: AST(SGOT) 18 U/L (<=37); Alanine Aminotransfer ALT/SGPT 13 U/L (<=46); Albumin, Serum 3.4 g/dL (3.4-4.8); Alkaline Phosphatase 73 U/L (40-129); Anion Gap 10 (5-15); BUN 17 mg/dL (4-19); BUN/Creat Ratio 16.9 RATIO (10-20); Bilirubin, Direct < 0.08 mg/dL (0.00-0.30); Calcium,Total 8.7 mg/dL (7.6-11.0); Carbon Dioxide 22.0 mmol/L (21.0-32.0); Chloride 108 mmol/L (98-108); Globulin 2.9 g/dL (2.2-4.2); Glucose 105 mg/dL (70-99); Potassium 4.1 mmol/L (3.3-5.1)
[2025-06-17 09:30] LABS: Vitamin B12 400 pg/mL (180-914)
== END ==
LOC: OLS.WHLEAS 05:00
PROVIDERS: PCP Family Medicine; Visit Provider Nurse Practitioner Adult Health
DX: G80.9 Cerebral palsy, unspecified (principal); R48.8 Other symbolic dysfunctions; M62.562 Muscle wasting and atrophy, not elsewhere classified, left lower leg; M62.561 Muscle wasting and atrophy, not elsewhere classified, right lower leg
CPT/HCPCS: 36415; 80048; 80076; 82607; 85025

== ENCOUNTER → 2025-06-24 | Outpatient (REF) | payer MEDICARE, MEDICAID, SELFPAY ==
--- OUTSIDE RECORDS SUMMARY | 2025-06-24 04:44 | XMS RPT_ITS | CCD ---
Author Organization [facility] Care Team Providers Care Tectonophysicist Name Role Phone Usman Patel MD Primary [...] Holder MD, Micaela Referring Provider Unavailoscar Macdonald DOG BOARDER-C, Jolly Attending Provider [phone] Jorge TRIPATHI, Dr. Wilks Primary Care Provider [phone] Gallo TRIPATHI, Micaela Attending Provider Unavailoscar Holder MD, Micaela Referring Provider Sara Patel MD, Dr. Wilks Primary Care Provider Gallo TRIPATHI, Micaela Attending Provider Sara Patel MD, Dr. Wilks Primary Care Provider [phone] Gallo TRIPATHI, Micaela Attending Provider Sara Holder MD, Dr. Hinojosa Attending Provider [phone] Jorge TRIPATHI, Dr. Wilks Primary Care Provider Gallo TRIPATHI, Micaela Attending Provider Unavailoscar Patel MD, Dr. Wilks Primary Care Provider [phone] Renae DOG BOARDER-C, Jolly Attending Provider Gallo TRIPATHI, Micaela Attending Provider Sara Patel MD, Dr. Wilks Primary Care Provider Renae DOG BOARDER-C, Jolly Attending Provider [phone] Gallo TRIPATHI, Dr. Hinojosa Attending Provider [phone] Poornima Holden Attending Provider Dr. Usman Patel MD Primary Care Physician Gallo TRIPATHI, Dr. Hinojosa Attending Physician [phone] Micaela Holder MD Attending Physician Unavail able Renae DOG BOARDER-C, Jolly Attending Physician Poornima Holden Attending Physician Jorge TRIPATHI, Dr. Wilks Primary Care Physician Micaela Holder MD Attending Physician Unavail maricarmen Holder MD, Dr. Hinojosa Attending Physician [phone] Renae DOG BOARDER-CJolly Attending Physician Gallo Efewongbe Attending Unavailable Elderbrock, Usman Primary Care Unavailable Tickmonse DOG BOARDERJolly Attending Unavailable Elderbrock, Usman Primary Care Unavailable [...] Unavailable Elderbrock, Usman Primary Care Unavailable Tickton DOG BOARDERJolly Attending Unavailable Elderbrock, Usman Primary Care Unavailable [...] Allergy to substance 2 Other: See Comments [facility] Medications Current Medications Medication Drug Class(es) Dates Sig (Normalized) Sig (Original) [id number] 200 actuat albuterol 0.09 mg/actuat metered dose [...] evening docusate sodium 50 mg / sennosides, prison 8.6 mg oral tablet (11 sources) Start: [...] 11/08/2021 Discontinued Start: 09-01-2017 End: 06-23-2023 Ipratropium [place] 1 SPRAY spray,non-aerosol Discontinued 2 NMA NASAL THREE TIMES A DAY 1 0 September 01, 2017 1:00am June 23, 2023 9:21pm Start: 09-01-2017 End: 06-23-2023 Ipratropium [place] Disconti nued 2 SPRAY NASAL THREE TIMES [...] Comment on above: Take 1 tablet by [facility] once daily. Take on empty stomach. For [...] DL <= 0.005 mIU/L QnOrde red By: Micaeal Holder on 05-13-2025 TSH Qn 2.140 uIU/mL 0.300-4.200 [facility] Bilirubin directOrdered By: Jolly Macdonald on 04-22-2025 Bilirubin.direct [Mass/Vol] 0.09 mg/dL 0.00-0.30 [facility] Bilirubin, totalOrdered By: Jolly Macdonald on 04-22-2025 Bilirubin [Mass/Vol] 0.24 mg/dL 0.00-1.30 [facility] Laboratory - Chemistry and C hemistry - challengeOrdered By: Jolly Macdonald on 04-22-2025 AST [Catalytic activity/Vol] 18 U/L <38 [facility] Serum globulin measurementOr dered By: Jolly Macdonald on 04-22-2025 Globulin (S) [Mass/Vol] 3.0 g/dL 2.2-4.2 [facility] Serum or plasma alanine ty otransferase (ALT) measurementOrdered By: Jolly Macdonald on 04-22-2025 ALT [Catalytic activity/Vol] 12 U/L <47 [facility] Serum or plasma albumin marvin urement (mass/volume)Ordered By: Jolly Macdonald on 04-22-2025 Albumin [Mass/Vol] 3.7 g/dL 3.4-4.8 [facility] Serum or plasma alkaline macho sphatase measurementOrdered By: Jolly Macdonald on 04-22-2025 ALP [Catalytic activity/Vol] 106 U/L 40-129 [facility] Total proteinOrdered By: Salvador Macdonald on 04-22-2025 Protein [Mass/Vol] 6.6 g/dL 5.9-8.4 [facility] Vitamin B12 ser/plasOrdered By: Jolly Macdonald on 04-22-2025 Cobalamin (Vitamin B12) [Mass/Vol] 383 pg/mL 180-914 [facility] TSH DL <= 0.005 mIU/L QnOrde red By: Jolly Macdonald on 04-01-2025 TSH Qn 2.880 uIU/mL 0.300-4.200 [facility] Bilirubin directOrdered By: Jolly Macdonald on 03-18-2025 Bilirubin.direct [Mass/Vol] 0.12 mg/dL 0.00-0.30 [facility] Bilirubin, totalOrdered By: Jolly Macdonald on 03-18-2025 Bilirubin [Mass/Vol] 0.24 mg/dL 0.00-1.30 [facility] Laboratory - Chemistry and C hemistry - challengeOrdered By: Jolly Macdonald on 03-18-2025 AST [Catalytic activity/Vol] 18 U/L <38 [facility] Serum globulin measurementOr dered By: Jolly Macdonald on 03-18-2025 Globulin (S) [Mass/Vol] 3.0 g/dL 2.2-4.2 [facility] Serum or plasma alanine ty otransferase (ALT) measurementOrdered By: Jolly Macdonald on 03-18-2025 ALT [Catalytic activity/Vol] 15 U/L <47 [facility] Serum or plasma albumin marvin urement (mass/volume)Ordered By: Jolly Macdonald on 03-18-2025 Albumin [Mass/Vol] 3.5 g/dL 3.4-4.8 [facility] Serum or plasma alkaline macho sphatase measurementOrdered By: Jolly Macdonald on 03-18-2025 ALP [Catalytic activity/Vol] 67 U/L 40-129 [facility] Total proteinOrdered By: Salvador Macdonald on 03-18-2025 Protein [Mass/Vol] 6.5 g/dL 5.9-8.4 [facility] Vitamin B12 ser/plasOrdered By: Jolly Macdonald on 03-18-2025 Cobalamin (Vitamin B12) [Mass/Vol] 450 pg/mL 180-914 [facility] Absolute lymphocyte countOrd ered By: Micaela Holder on 02-18-2025 Lymphocytes Auto (Unsp spec) [#/Vol] 1.71 10*3/uL 0.83-4.51 [facility] Absolute neutrophil countOrd ered By: Micaela Holder on 02-18-2025 Neutrophils (Bld) [#/Vol] 3.2 10*3/uL 2.0-7.7 [facility] Anion gap in Serum or Plasma Ordered By: Micaela Holder on 02-18-2025 Anion gap [Moles/Vol] 11 mmol/L 5-15 [facility] Automated lymphocyte count a s percentage of total leukocytesOrdered By: Micaela Holder on 02-18-2025 Lymphocytes/100 WBC Auto (Unsp spec) 28.4 % 19-41 [facility] BUN/creatinine ratioOrdered By: Micaela Holder on 02-18-2025 Urea nitrogen/Creatinine [Mass ratio] 18.7 mg/mg 10-20 [facility] Basophil percentageOrdered B y: Micaela Holder on 02-18-2025 Basophils/100 WBC (Bld) 0.8 % 0-1 [facility] Bilirubin directOrdered By: Micaela Holder on 02-18-2025 Bilirubin.direct [Mass/Vol] 0.09 mg/dL 0.00-0.30 [facility] Bilirubin, totalOrdered By: Micaela Holder on 02-18-2025 Bilirubin [Mass/Vol] 0.21 mg/dL 0.00-1.30 [facility] Carbon dioxide, total [Moles /volume] in Central venous bloodOrdered By: Micaela Holder on 02-18-2025 CO2 [Moles/Vol] 20.9 mmol/L Low 21.0-32.0 [facility] Chloride assayOrdered By: Mylene Holder on 02-18-2025 Chloride [Moles/Vol] 108 mmol/L 98-108 [facility] Eosinophil percentageOrdered By: Micaela Holder on 02-18-2025 Eosinophils/100 WBC (Bld) 5.1 % High 0-5 [facility] Erythrocyte distribution wid th ratioOrdered By: Micaela Holder on 02-18-2025 Erythrocyte distribution width (RBC) [Ratio] 12.9 % 11.6-14.6 [facility] Erythrocyte distribution wid th standard deviationOrdered By: Micaela Holder on 02-18-2025 Erythrocyte distribution width (RBC) [Ratio] 47.1 fl High 35.1-43.9 [facility] Glomerular filtration rate ( GFR) estimation/1.73 sq m using serum, plasma, or whole bOrdered By: Micaela Holder on 02-18-2025 GFR/1.73 sq M.predicted among non-blacks MDRD (S/P/Bld) [Vol rate/Area] 74 mL/min/{1.73_m2} >60 [facility] Comment on above: mL/min/1.73m2 CKD-EP I Creatinine Equation (2020) Hematocrit Auto (Bld) [Volum e fraction]Ordered By: Micaela Holder on 02-18-2025 Hematocrit (Bld) [Volume fraction] 35.9 % Low 40-54 [facility] Hemoglobin measurementOrdere d By: Micaela Holder on 02-18-2025 Hemoglobin (Bld) [Mass/Vol] 11.8 g/dL Low 13.0-16.5 [facility] Immature granulocytes/100 WB C Auto (Bld)Ordered By: Micaela Holder on 02-18-2025 Immature granulocytes/100 WBC (Bld) 0.300 % 0.0-0.9 [facility] Comment on above: IG% - Immature Granu locytes (promyelocytes, myelocytes and metamyelocytes) > 1% indicates that a LEFT SHIFT is Present. Laboratory - Chemistry and C hemistry - challengeOrdered By: Micaela Holder on 02-18-2025 AST [Catalytic activity/Vol] 16 U/L <38 [facility] LevetiracetamOrdered By: Frank Holder on 02-18-2025 levETIRAcetam [Mass/Vol] 16.9 ug/mL 10.0-40.0 [facility] Comment on above: Performed at: [address] [id number] Director: Daniel Bailey MD, Phone: [phone] MCV (mean corpuscular volume ) determinationOrdered By: Micaela Holder on 02-18-2025 MCV (RBC) [Entitic vol] 98.6 fL High 80-94 [facility] Mean corpuscular hemoglobin (MCH) determinationOrdered By: Micaela Holder on 02-18-2025 MCH (RBC) [Entitic mass] 32.4 pg High 27.0-32.0 [facility] Mean corpuscular hemoglobin concentration (MCHC) determinationOrdered By: Micaela Holder on 02-18-2025 MCHC (RBC) [Mass/Vol] 32.9 g/dL 32-36 [facility] Mean platelet volume determi nationOrdered By: Micaela Holder on 02-18-2025 Platelet mean volume (Bld) [Entitic vol] 9.9 fL 6.2-12.0 [facility] Monocyte percentageOrdered B y: Micaela Holder on 02-18-2025 Monocytes/100 WBC (Bld) 11.6 % High 0-10 [facility] Neutrophil percentageOrdered By: Micaela Holder on 02-18-2025 Neutrophils/100 WBC (Bld) 53.8 % 47-70 [facility] Nucleated red blood cell per centageOrdered By: Micaela Holder on 02-18-2025 Nucleated RBC/100 WBC (Bld) [Ratio] 0 % 0-5 [facility] Platelet countOrdered By: Mylene Holder on 02-18-2025 Platelets (Bld) [#/Vol] 243 10*3/uL 150-450 [facility] Potassium measurement (mass/ volume)Ordered By: Micaela Holder on 02-18-2025 Potassium (Unsp spec) [Mass/Vol] 4.2 mmol/L 3.3-5.1 [facility] RBC Auto (Bld) [#/Vol]Ordere d By: Micaela Holder on 02-18-2025 RBC (Bld) [#/Vol] 3.64 10*6/uL Low 4.6-6.2 [facility] Serum creatinine measurement (mass/volume)Ordered By: Micaela Holder on 02-18-2025 Creatinine [Mass/Vol] 1.06 mg/dL 0.70-1.20 [facility] Serum globulin measurementOr dered By: Micaela Holder on 02-18-2025 Globulin (S) [Mass/Vol] 2.9 g/dL 2.2-4.2 [facility] Serum glucose measurement (m ass/volume)Ordered By: Micaela Holder on 02-18-2025 Glucose [Mass/Vol] 103 mg/dL High 70-99 [facility] Serum or plasma alanine ty otransferase (ALT) measurementOrdered By: Micaela Holder on 02-18-2025 ALT [Catalytic activity/Vol] 16 U/L <47 [facility] Serum or plasma albumin marvin urement (mass/volume)Ordered By: Micaela Holder on 02-18-2025 Albumin [Mass/Vol] 3.7 g/dL 3.4-4.8 [facility] Serum or plasma alkaline macho sphatase measurementOrdered By: Micaela Holder on 02-18-2025 ALP [Catalytic activity/Vol] 76 U/L 40-129 [facility] Serum or plasma calcium marvin urement (mass/volume)Ordered By: Micaela Holder on 02-18-2025 Calcium [Mass/Vol] 8.9 mg/dL 7.6-11.0 [facility] Serum or plasma carbamazepin e level (mass/volume)Ordered By: Micaela Holder 02-18-2025 carBAMazepine [Mass/Vol] 10.7 ug/mL 4.0-12.0 [facility] Serum or plasma urea nitroge n measurement (mass/volume)Ordered By: Micaela Holder on 02-18-2025 Urea nitrogen [Mass/Vol] 20 mg/dL High 4-19 [facility] Sodium levelOrdered By: Jose Holder on 02-18-2025 Sodium [Moles/Vol] 140 mmol/L 133-145 [facility] TSH DL <= 0.005 mIU/L QnOrde red By: Micaela Holder on 02-18-2025 TSH Qn 4.240 uIU/mL High 0.300-4.200 [facility] Total proteinOrdered By: Frank Holder 02-18-2025 Protein [Mass/Vol] 6.6 g/dL 5.9-8.4 [facility] Vitamin B12 ser/plasOrdered By: Micaela Holder on 02-18-2025 Cobalamin (Vitamin B12) [Mass/Vol] 429 pg/mL 180-914 [facility] White blood cell (WBC) count Ordered By: Micaela Holder 02-18-2025 WBC (Bld) [#/Vol] 6.0 10*3/uL 4.4-11.0 [facility] Bilirubin directOrdered By: Jolly Macdonald on 01-14-2025 Bilirubin.direct [Mass/Vol] mg/dL 0.00-0.30 [facility] Bilirubin, totalOrdered By: Jolly Macdonald on 01-14-2025 Bilirubin [Mass/Vol] 0.18 mg/dL 0.00-1.30 [facility] Laboratory - Chemistry and C hemistry - challengeOrdered By: Jolly Macdonald on 01-14-2025 AST [Catalytic activity/Vol] 19 U/L <38 [facility] LevetiracetamOrdered By: Salvador Macdonald on 01-14-2025 levETIRAcetam [Mass/Vol] 15.6 ug/mL 10.0-40.0 [facility] Comment on above: Performed at: [address] [id number] Director: Daniel Bailey MD, Phone: [phone] Serum globulin measurementOr dered By: Jolly Macdonald on 01-14-2025 Globulin (S) [Mass/Vol] 2.9 g/dL 2.2-4.2 [facility] Serum or plasma alanine ty otransferase (ALT) measurementOrdered By: Jolly Macdonald on 01-14-2025 ALT [Catalytic activity/Vol] 14 U/L <47 [facility] Serum or plasma albumin marvin urement (mass/volume)Ordered By: Jolly Macdonald on 01-14-2025 Albumin [Mass/Vol] 3.5 g/dL 3.4-4.8 [facility] Serum or plasma alkaline macho sphatase measurementOrdered By: Jolly Macdonald on 01-14-2025 ALP [Catalytic activity/Vol] 79 U/L 40-129 [facility] Serum or plasma carbamazepin e level (mass/volume)Ordered By: Jolly Macdonald on 01-14-2025 carBAMazepine [Mass/Vol] 10.8 ug/mL 4.0-12.0 [facility] Total proteinOrdered By: Salvador Macdonald on 01-14-2025 Protein [Mass/Vol] 6.5 g/dL 5.9-8.4 [facility] Vitamin B12 ser/plasOrdered By: Jolly Macdonald on 01-14-2025 Cobalamin (Vitamin B12) [Mass/Vol] 431 pg/mL 180-914 [facility] TSH DL <= 0.005 mIU/L QnOrde red By: Micaela Casianoazalea on 01-07-2025 TSH Qn 3.420 uIU/mL 0.300-4.200 [facility] Bilirubin directOrdered By: Jolly Macdonald on 12-17-2024 Bilirubin.direct [Mass/Vol] mg/dL 0.00-0.30 [facility] Bilirubin, totalOrdered By: Jolly Macdonald on 12-17-2024 Bilirubin [Mass/Vol] 0.19 mg/dL 0.00-1.30 [facility] Laboratory - Chemistry and C hemistry - challengeOrdered By: Jolly Macdonald on 12-17-2024 AST [Catalytic activity/Vol] 18 U/L <38 [facility] Serum globulin measurementOr dered By: Jolly Macdonald on 12-17-2024 Globulin (S) [Mass/Vol] 2.9 g/dL 2.2-4.2 [facility] Serum or plasma alanine ty otransferase (ALT) measurementOrdered By: Jolly Macdonald on 12-17-2024 ALT [Catalytic activity/Vol] 18 U/L <47 [facility] Serum or plasma albumin marvin urement (mass/volume)Ordered By: Jolly Macdonald on 12-17-2024 Albumin [Mass/Vol] 3.7 g/dL 3.4-4.8 [facility] Serum or plasma alkaline macho sphatase measurementOrdered By: Jolly Macdonald on 12-17-2024 ALP [Catalytic activity/Vol] 85 U/L 40-129 [facility] Total proteinOrdered By: Salvador Macdonald on 12-17-2024 Protein [Mass/Vol] 6.6 g/dL 5.9-8.4 [facility] Vitamin B12 ser/plasOrdered By: Jolly Macdonald on 12-17-2024 Cobalamin (Vitamin B12) [Mass/Vol] 455 pg/mL 180-914 [facility] TSH DL <= 0.005 mIU/L QnOrde red By: Micaela Gallo on 11-26-2024 TSH Qn 3.470 uIU/mL 0.300-4.200 [facility] Bilirubin directOrdered By: Jolly Macdonald on 11-19-2024 Bilirubin.direct [Mass/Vol] 0.11 mg/dL 0.00-0.30 [facility] Bilirubin, totalOrdered By: Jolly Macdonald on 11-19-2024 Bilirubin [Mass/Vol] 0.20 mg/dL 0.00-1.30 [facility] Laboratory - Chemistry and C hemistry - challengeOrdered By: Jolly Macdonald on 11-19-2024 AST [Catalytic activity/Vol] 18 U/L <38 [facility] Serum globulin measurementOr dered By: Jolly Macdonald on 11-19-2024 Globulin (S) [Mass/Vol] 3.1 g/dL 2.2-4.2 [facility] Serum or plasma alanine ty otransferase (ALT) measurementOrdered By: Jolly Macdonald on 11-19-2024 ALT [Catalytic activity/Vol] 12 U/L <47 [facility] Serum or plasma albumin marvin urement (mass/volume)Ordered By: Jolly Macdonald on 11-19-2024 Albumin [Mass/Vol] 3.6 g/dL 3.4-4.8 [facility] Serum or plasma alkaline macho sphatase measurementOrdered By: Jolly Macdonald on 11-19-2024 ALP [Catalytic activity/Vol] 75 U/L 40-129 [facility] Total proteinOrdered By: Salvador Macdonald on 11-19-2024 Protein [Mass/Vol] 6.7 g/dL 5.9-8.4 [facility] Vitamin B12 ser/plasOrdered By: Jolly Macdonald on 11-19-2024 Cobalamin (Vitamin B12) [Mass/Vol] 521 pg/mL 180-914 [facility] Absolute lymphocyte countOrd ered By: Jolly Macdonald on 10-15-2024 Lymphocytes Auto (Unsp spec) [#/Vol] 1.44 10*3/uL 0.83-4.51 [facility] Absolute neutrophil countOrd ered By: Jolly Macdonald on 10-15-2024 Neutrophils (Bld) [#/Vol] 2.5 10*3/uL 2.0-7.7 [facility] Anion gap in Serum or Plasma Ordered By: Jolly Macdonald on 10-15-2024 Anion gap [Moles/Vol] 11 mmol/L 5-15 [facility] Automated lymphocyte count a s percentage of total leukocytesOrdered By: Jolly Macdonald on 10-15-2024 Lymphocytes/100 WBC Auto (Unsp spec) 28.9 % 19-41 [facility] BUN/creatinine ratioOrdered By: Jolly Macdonald on 10-15-2024 Urea nitrogen/Creatinine [Mass ratio] 12.1 mg/mg 10-20 [facility] Basophil percentageOrdered B y: Jolly Macdonald on 10-15-2024 Basophils/100 WBC (Bld) 0.8 % 0-1 [facility] Bilirubin directOrdered By: oJlly Macdonald on 10-15-2024 Bilirubin.direct [Mass/Vol] 0.09 mg/dL 0.00-0.30 [facility] Bilirubin, totalOrdered By: Jolly Macdonald on 10-15-2024 Bilirubin [Mass/Vol] 0.24 mg/dL 0.00-1.30 [facility] Carbon dioxide, total [Moles /volume] in Central venous bloodOrdered By: Jolly Macdonald on 10-15-2024 CO2 [Moles/Vol] 21.3 mmol/L 21.0-32.0 [facility] Chloride assayOrdered By: Saroj Macdonald on 10-15-2024 Chloride [Moles/Vol] 108 mmol/L 98-108 [facility] Eosinophil percentageOrdered By: Jolly Macdonald on 10-15-2024 Eosinophils/100 WBC (Bld) 7.6 % High 0-5 [facility] Erythrocyte distribution wid th (RBC) [Ratio]Ordered By: Jolly Macdonald on 10-15-2024 Erythrocyte distribution width (RBC) [Entitic vol] 45.4 fL High 35.1-43.9 [facility] Erythrocyte distribution wid th ratioOrdered By: Jolly Macdonald on 10-15-2024 Erythrocyte distribution width (RBC) [Ratio] 12.7 % 11.6-14.6 [facility] Erythrocyte distribution wid th standard deviationOrdered By: Jolly Macdonald on 10-15-2024 Erythrocyte distribution width (RBC) [Ratio] 45.4 fl High 35.1-43.9 [facility] GFR/1.73 sq M.predicted yang g non-blacks MDRD (S/P/Bld) [Vol rate/Area]Ordered By: Jolly Macdonald on 10-15-2024 Estimated GFR (MDRD) Non-Af Amer 78 >60 [facility] Comment on above: mL/min/1.73m2 CKD-EP I Creatinine Equation (2020) Glomerular filtration rate ( GFR) estimation/1.73 sq m using serum, plasma, or whole bOrdered By: Jolly Macdonald on 10-15-2024 GFR/1.73 sq M.predicted among non-blacks MDRD (S/P/Bld) [Vol rate/Area] 78 mL/min/{1.73_m2} >60 [facility] Comment on above: mL/min/1.73m2 CKD-EP I Creatinine Equation (2020) Hematocrit Auto (Bld) [Volum e fraction]Ordered By: Jolly Macdonald on 10-15-2024 Hematocrit (Bld) [Volume fraction] 33.6 % Low 40-54 [facility] Hemoglobin measurementOrdere d By: Jolly Macdonald on 10-15-2024 Hemoglobin (Bld) [Mass/Vol] 11.0 g/dL Low 13.0-16.5 [facility] Immature granulocytes/100 WB C Auto (Bld)Ordered By: Jolly Macdonald on 10-15-2024 Immature granulocytes/100 WBC (Bld) 0.400 % 0.0-0.9 [facility] Comment on above: IG% - Immature Granu locytes (promyelocytes, myelocytes and metamyelocytes) > 1% indicates that a LEFT SHIFT is Present. Laboratory - Chemistry and C hemistry - challengeOrdered By: Jolly Macdonald on 10-15-2024 AST [Catalytic activity/Vol] 19 U/L <38 [facility] Lymphocytes Auto (Unsp spec) [#/Vol]Ordered By: Jolly Macdonald on 10-15-2024 Lymphocytes (Bld) [#/Vol] 1.44 10*3/uL 0.83-4.51 [facility] Lymphocytes/100 WBC Auto (Un sp spec)Ordered By: Jolly Macdonald on 10-15-2024 Lymphocytes/100 WBC (Bld) 28.9 % 19-41 [facility] MCV (mean corpuscular volume ) determinationOrdered By: Jolly Macdonald on 10-15-2024 MCV (RBC) [Entitic vol] 98.2 fL High 80-94 [facility] Mean corpuscular hemoglobin (MCH) determinationOrdered By: Jolly Macdonald on 10-15-2024 MCH (RBC) [Entitic mass] 32.2 pg High 27.0-32.0 [facility] Mean corpuscular hemoglobin concentration (MCHC) determinationOrdered By: Jolly Macdonald on 10-15-2024 MCHC (RBC) [Mass/Vol] 32.7 g/dL 32-36 [facility] Mean platelet volume determi nationOrdered By: Jolly Macdonald on 10-15-2024 Platelet mean volume (Bld) [Entitic vol] 10.4 fL 6.2-12.0 [facility] Monocyte percentageOrdered B y: Jolly Macdonald on 10-15-2024 Monocytes/100 WBC (Bld) 13.1 % High 0-10 [facility] Neutrophil percentageOrdered By: Jolly Macdonald on 10-15-2024 Neutrophils/100 WBC (Bld) 49.2 % 47-70 [facility] Nucleated red blood cell per centageOrdered By: Jolly Macdonald on 10-15-2024 Nucleated RBC/100 WBC (Bld) [Ratio] 0 % 0-5 [facility] Platelet countOrdered By: Saroj Macdonald on 10-15-2024 Platelets (Bld) [#/Vol] 226 10*3/uL 150-450 [facility] Potassium (Unsp spec) [Mass/ Vol]Ordered By: Jolly Macdonald on 10-15-2024 Potassium [Moles/Vol] 4.0 mmol/L 3.3-5.1 [facility] Potassium measurement (mass/ volume)Ordered By: Jolly Macdonald on 10-15-2024 Potassium (Unsp spec) [Mass/Vol] 4.0 mmol/L 3.3-5.1 [facility] RBC Auto (Bld) [#/Vol]Ordere d By: Jolly Macdonald on 10-15-2024 RBC (Bld) [#/Vol] 3.42 10*6/uL Low 4.6-6.2 [facility] Serum creatinine measurement (mass/volume)Ordered By: Jolly Macdonald on 10-15-2024 Creatinine [Mass/Vol] 1.01 mg/dL 0.70-1.20 [facility] Serum globulin measurementOr dered By: Jolly Macdonald on 10-15-2024 Globulin (S) [Mass/Vol] 2.9 g/dL 2.2-4.2 [facility] Serum glucose measurement (m ass/volume)Ordered By: Jolly Macdonald on 10-15-2024 Glucose [Mass/Vol] 102 mg/dL High 70-99 [facility] [facility] Serum or plasma alanine ty otransferase (ALT) measurementOrdered By: Jolly Macdonald on 10-15-2024 ALT [Catalytic activity/Vol] 15 U/L <47 [facility] Serum or plasma albumin marvin urement (mass/volume)Ordered By: Jolly Macdonald on 10-15-2024 Albumin [Mass/Vol] 3.5 g/dL 3.4-4.8 [facility] Serum or plasma alkaline macho sphatase measurementOrdered By: Jolly Macdonald on 10-15-2024 ALP [Catalytic activity/Vol] 79 U/L 40-129 [facility] Serum or plasma calcium marvin urement (mass/volume)Ordered By: Jolly Macdonald on 10-15-2024 Calcium [Mass/Vol] 8.6 mg/dL 7.6-11.0 [facility] Serum or plasma urea nitroge n measurement (mass/volume)Ordered By: Jolly Macdonald on 10-15-2024 Urea nitrogen [Mass/Vol] 12 mg/dL 4-19 [facility] Sodium levelOrdered By: Larissa Macdonald on 10-15-2024 Sodium [Moles/Vol] 141 mmol/L 133-145 [facility] TSH DL <= 0.005 mIU/L QnOrde red By: Jolly Macdonald on 10-15-2024 Thyroid Stimulating Hormone (TSH) 1.270 uIU/mL 0.300-4.200 [facility] TSH Qn 1.270 uIU/mL 0.300-4.200 [facility] Total proteinOrdered By: Salvador Macdonald on 10-15-2024 Protein [Mass/Vol] 6.4 g/dL 5.9-8.4 [facility] Vitamin B12 ser/plasOrdered By: Jolly Macdonald on 10-15-2024 Cobalamin (Vitamin B12) [Mass/Vol] 533 pg/mL 180-914 [facility] White blood cell (WBC) count Ordered By: Jolly Macdonald on 10-15-2024 WBC (Bld) [#/Vol] 5.0 10*3/uL 4.4-11.0 [facility] Calculated very low density lipoprotein (VLDL) cholesterol measurementOrdered By: Micaela Holder on 10-04-2024 Calculated very low density lipoprotein (VLDL) cholesterol measurement 9 mg/dL 5-40 [facility] VLDL Cholesterol 9 mg/dL 5-40 [facility] LDL calc ser/plasOrdered By: Micaela Holder on 10-04-2024 Cholesterol in LDL [Mass/Vol] 113 mg/dL [facility] Comment on above: Pbljitpnrp=978-643 m g/dL & Higher Xgql=386 mg/dL or greater LDL Cholesterol, Calculated 113 mg/dL [facility] Comment on above: Kbjodgnxmc=270-492 m g/dL & Higher Qxnz=769 mg/dL or greater Screening total cholesterol/ high density lipoprotein (HDL) cholesterol ratioOrdered By: Micaela Holder on 10-04-2024 Cholesterol.total/Choles terol in HDL [Mass ratio] 2.88 {ratio} [facility] Serum or plasma cholesterol in HDL measurement (mass/volume)Ordered By: Micaela Holder on 10-04-2024 Cholesterol in HDL [Mass/Vol] 65 mg/dL >40 [facility] Comment on above: National Cholesterol Education Program (NCEP) guidelines:<40 mg/dL: Low HDL-cholesterol (major risk factor for CHD)>= 60 mg/dL: High HDL-cholesterol (negative risk factor for CHD)HDL-cholesterol is affected by a number of factors, e.g. smoking, exercise, hormones, sex and age. Serum or plasma cholesterol measurement (mass/volume)Ordered By: Micaela Holder on 10-04-2024 Cholesterol [Mass/Vol] 187 mg/dL <201 [facility] Comment on above: Cholesterol level, D esirable <200 mg/dLBorderline high cholesterol 200-239 mg/dLHigh cholesterol >=240 mg/dLRecommendations of the NCEP Adult Treatment Panel for the following risk-cutoff thresholds for the [place] population. Triglycerides measurementOrd ered By: Micaela Holder on 10-04-2024 Triglyceride [Mass/Vol] 46 mg/dL <199 [facility] Comment on above: The drugs N-Acetylcy steine and Metamizole may falsely depress this assay. Normal range: <150 mg/dLBorderline High: 150-199 mg/dLHigh: 200-499 mg/dLVery High: >500 mg/dL Bilirubin directOrdered By: Micaela Holder on 09-17-2024 Bilirubin.direct [Mass/Vol] 0.09 mg/dL 0.00-0.30 [facility] Bilirubin, totalOrdered By: Micaela Holder on 09-17-2024 Bilirubin [Mass/Vol] 0.18 mg/dL 0.00-1.30 [facility] Laboratory - Chemistry and C hemistry - challengeOrdered By: Micaela Holder on 09-17-2024 AST [Catalytic activity/Vol] 19 U/L <38 [facility] Serum globulin measurementOr dered By: Micaela Holder on 09-17-2024 Globulin (S) [Mass/Vol] 3.0 g/dL 2.2-4.2 [facility] Serum or plasma alanine ty otransferase (ALT) measurementOrdered By: Micaela Holder on 09-17-2024 ALT [Catalytic activity/Vol] 15 U/L <47 [facility] Serum or plasma albumin marvin urement (mass/volume)Ordered By: Micaela Holder on 09-17-2024 Albumin [Mass/Vol] 3.4 g/dL 3.4-4.8 [facility] Serum or plasma alkaline macho sphatase measurementOrdered By: Micaela Holder on 09-17-2024 ALP [Catalytic activity/Vol] 74 U/L 40-129 [facility] Total proteinOrdered By: Frank Holder on 09-17-2024 Protein [Mass/Vol] 6.4 g/dL 5.9-8.4 [facility] Vitamin B12 ser/plasOrdered By: Micaela Holder on 09-17-2024 Cobalamin (Vitamin B12) [Mass/Vol] 603 pg/mL 180-914 [facility] Serum or plasma thyroid stim ulating hormone (TSH) measurement (units/volume)Ordered By: Micaela Holder on 09-03-2024 TSH Qn 18.400 uIU/mL High 0.358-3.740 [facility] TSH QnOrdered By: Micaela Holder on 09-03-2024 Thyroid Stimulating Hormone (TSH) 18.400 uIU/mL High 0.358-3.740 [facility] Bilirubin directOrdered By: Micaela Holder on 08-20-2024 Bilirubin.direct [Mass/Vol] 0.11 mg/dL 0.00-0.30 [facility] Bilirubin, totalOrdered By: Micaela Holder on 08-20-2024 Bilirubin [Mass/Vol] 0.30 mg/dL 0.20-1.00 [facility] Comment on above: For patients on eltr ombopag therapy, use of Dimension [place] TBIL is not recommended. Laboratory - Chemistry and C hemistry - challengeOrdered By: Micaela Holder on 08-20-2024 AST [Catalytic activity/Vol] 24 U/L 15-37 [facility] Serum globulin measurementOr dered By: Micaela Holder on 08-20-2024 Globulin (S) [Mass/Vol] 3.8 g/dL 2.2-4.2 [facility] Serum or plasma alanine ty otransferase (ALT) measurementOrdered By: Micaela Holder on 08-20-2024 ALT [Catalytic activity/Vol] 38 U/L 16-61 [facility] Serum or plasma albumin marvin urement (mass/volume)Ordered By: Micaela Holder on 08-20-2024 Albumin [Mass/Vol] 3.0 g/dL Low 3.2-5.0 [facility] Serum or plasma alkaline macho sphatase measurementOrdered By: Micaela Holder on 08-20-2024 ALP [Catalytic activity/Vol] 86 U/L 45-117 [facility] Total proteinOrdered By: Frank Holder on 08-20-2024 Protein [Mass/Vol] 6.8 g/dL 6.4-8.2 [facility] Vitamin B12 measurementOrder ed By: Micaela Holder on 08-20-2024 Cobalamin (Vitamin B12) [Mass/Vol] 1165 pg/mL High 211-911 [facility] 58-MH-Zoodjwk DOrdered By: Haroon Holder on 07-23-2024 Vitamin D 25-Hydroxy 46.8 ng/mL [facility] Comment on above: Vitamin D 25(OH) Sta tus Range Deficiency <20 ng/mL (50nmol/L) Insufficiency 20 - 30 ng/mL (50 - 75 nmol/L) Sufficiency 30 - 100 ng/mL (75 - 250 nmol/L) Toxicity >100 ng/mL (>250 nmol/L) Bilirubin directOrdered By: Micaela Holder on 07-23-2024 Bilirubin.direct [Mass/Vol] 0.06 mg/dL 0.00-0.30 [facility] Bilirubin, totalOrdered By: Micaela Holder on 07-23-2024 Bilirubin [Mass/Vol] 0.30 mg/dL 0.20-1.00 [facility] Comment on above: For patients on eltr ombopag therapy, use of Dimension [place] TBIL is not recommended. Laboratory - Chemistry and C hemistry - challengeOrdered By: Micaela Holder on 07-23-2024 AST [Catalytic activity/Vol] 16 U/L 15-37 [facility] LevetiracetamOrdered By: Frank Holder on 07-23-2024 Levetiracetam (Keppra) Level 14.1 ug/mL 10.0-40.0 [facility] Comment on above: Performed at: [facility] [address] [id number] Director: Daniel Bailey MD, Phone: [phone] Serum globulin measurementOr dered By: Micaela Holder on 07-23-2024 Globulin (S) [Mass/Vol] 3.7 g/dL 2.2-4.2 [facility] Serum or plasma alanine ty otransferase (ALT) measurementOrdered By: Micaela Holder on 07-23-2024 ALT [Catalytic activity/Vol] 26 U/L 16-61 [facility] Serum or plasma albumin marvin urement (mass/volume)Ordered By: Micaela Holder on 07-23-2024 Albumin [Mass/Vol] 2.9 g/dL Low 3.2-5.0 [facility] Serum or plasma alkaline macho sphatase measurementOrdered By: Micaela Holder on 07-23-2024 ALP [Catalytic activity/Vol] 70 U/L 45-117 [facility] TSH QnOrdered By: Micaela Holder on 07-23-2024 Thyroid Stimulating Hormone (TSH) 18.700 uIU/mL High 0.358-3.740 [facility] Total proteinOrdered By: Frank Holder on 07-23-2024 Protein [Mass/Vol] 6.6 g/dL 6.4-8.2 [facility] Vitamin B12 measurementOrder ed By: Micaela Holder on 07-23-2024 Cobalamin (Vitamin B12) [Mass/Vol] 1011 pg/mL High 211-911 [facility] carBAMazepine [Mass/Vol]Orde red By: Micaela Holder on 07-23-2024 Carbamazepine (Tegretol) Level 9.6 ug/mL 4.0-12.0 [facility] CNPNon 07-02-2024 CNPN Telephone (FAMPWS) CASSYJ LUIS ([id number]) 1950 M Date Time Provider Department 07/02/24 USMAN PATEL During your visit today, we recorded the following information about you: Norma Rogers MA 07/02/2024 9:25 AM Signed Type of letter/form/fax request - order from [facility] Form received from fax on 1 floor and placed on MD desk (Dr. Patel) for completion. Completed form needs to be faxed to [facility] at [phone]. Route to [place] when form completed for processing Julieta Mckay MA 07/02/2024 11:53 AM Signed Form signed and faxed back to number below. Julieta Mckay MA Allergies As of Date: 07/02/2024 Noted Allergy Reaction SEASONAL ALLERGIES 03/13/2012 14 - Other: See Comments Date Reviewed: 10/20/2023 Reviewed by: Julieta Mckay MA - Fully Assessed Reason for Visit: Forms [913] Cmt: 90 day order for [facility] Prescriptions as of 07/02/2024 - levETIRAcetam (KEPPRA) [...] Encounter Status:Closed by JULIETA MCKAY on 07/02/24 [facility] 05-09-2024 [facility] J LUIS MADERA ([id number]) 1950 M Date Time Provider Department 05/09/24 USMAN PATEL [facility] During your visit today, we recorded the following information about you: Julieta Mckay MA 05/09/2024 1:27 PM Signed Type of form: 90 day order for Adult Day [facility] Services through [facility] Form received via fax When form is completed, Fax form to [phone] Form has been forwarded to Physician Desk: ALLISON Velazquez Kathryn, MA 05/10/2024 9:00 AM Signed Faxed. Norma Rogers MA Allergies As of Date: 05/09/2024 Noted Allergy Reaction SEASONAL ALLERGIES 03/13/2012 14 - Other: See Comments Date Reviewed: 10/20/2023 Reviewed by: Julieta Mckay MA - Fully Assessed Reason for Visit: Forms [913] Cmt: [place] Prescriptions as of 05/10/2024 - levETIRAcetam (KEPPRA) [...] Encounter Status:Closed by [facility] J LU[facility]AD[facility] ([id number]) 1950 M Date Time Provider Department 02/06/24 USMAN PATEL During your visit today, we recorded the following information about you: Norma Rogers MA 02/06/2024 9:49 AM Signed Type of letter/form/fax request - 90 day order for adult daycare Form received from fax on 1 floor and placed on MD desk (Dr. Patel) for completion. Completed form needs to be faxed to [facility] at [phone].. Route to [place] when form completed for processing Norma Rogers MA 02/06/2024 3:28 PM Signed Form faxed. Norma Rogers MA Allergies As of Date: 02/06/2024 Noted Allergy Reaction SEASONAL ALLERGIES 03/13/2012 14 - Other: See Comments Date Reviewed: 10/20/2023 Reviewed by: Julieta Mckay MA - Fully Assessed Reason for Visit: Forms [913] Cmt: [facility] 90 day order Prescriptions as of 02/06/2024 [...] Encounter Status:Closed by NORMA ROGERS on 02/06/24 [facility] CNOVon 10-20-2023 CNOV Office Visit (FAMPWS ) J LUIS MADERA ([id number]) 1950 M Date Time Provider Department 10/20/23 [...] Directive Dis (more content not included)... [facility] (Bld)[facility] 10-20-2023 Average glucose Estimated from glycated hemoglobin (Bld) [Mass/Vol] 123 mg/dL [facility] Comment on above: Order Comment: Emil obrien Type: BLOOD SPECIMENOrdering Facility: [facility] Address: [address] [place] [address] Result Comment: eAG: (Estimated average glucose) is a calculated value from HgbA1c and is metals sales representative of the average blood glucose level in the last 2-3 month period. Performed By: #### 5 5454-3 ####[facility] LABIA [id number] [place] [address] [place] HbA1c (Bld) [Mass fraction] 5.9 % High 4.3-5.6 [facility] Comment on above: Order Comment: Emil obrien Type: BLOOD SPECIMENOrdering Facility: [facility] Address: [address] [place] [address] Result Comment: Amer [place] Diabetes Association guidelines indicate that patients with HgbA1c in the range 5.7-6.4% are at increased risk for development of diabetes, and intervention by lifestyle modification may be beneficial. HgbA1c greater or equal to 6.5% is considered diagnostic of diabetes. Performed By: #### 5 5454-3 ####[facility] [id number] [address] [place] TSH SerPl-aCncon 10-20-2023 TSH Qn 0.998 m[IU]/L Normal 0.270-4.200 [facility] Comment on above: Order Comment: Emil obrien Type: BLOOD SPECIMENOrdering Facility: [facility] Address: [address] [place] [address] Performed By: #### 3 016-3 ####[facility] LABIA [id number] [place] [address] [place] CNPNon 10-19-2023 CNPN Telephone (FAMPWS) J LUIS MADERA ([id number]) 1950 M Date Time Provider Department 10/19/23 USMAN PATEL During your visit today, we recorded the following information about you: Julieta Mckay MA 10/19/2023 9:29 AM Signed Type of form: 90 day order from [facility] Form received via fax When form is completed, Fax form to [phone] Form has been forwarded to Physician Desk: ALLISON Velazquez Rilee, MA 10/19/2023 11:56 AM Signed Form signed and faxed back to information below. Julieta Mckay MA Allergies As of Date: 10/19/2023 Noted Allergy Reaction SEASONAL ALLERGIES 03/13/2012 14 - Other: See Comments Date Reviewed: 08/28/2023 Reviewed by: Aiden Mccrary MD - Fully Assessed Reason for Visit: Forms [913] Cmt: Orders from [facility] - 90 day Prescriptions as of 10/19/2023 [...] Status:Closed by JULIETA MCKAY on 10/19/23 [facility] US CAROTID ARTERIES LISHA VAS LABon 09-19-2023 US CAROTID ARTERIES [facility]IS[facility] LAB Non-Invasive Vascular Laboratory [facility] Carotid Duplex Bilateral/Complete Date of service/time: [...] Interpreting physician: MANISHA Melendez DO Final CC mobile mum Medical Image : [id number] See Link below for Image [facility] ECHOon 09-05-2023 Echocardiography Echocardiography Report: Transthoracic Echo [facility] Date of service: 09/05/2023 1:10:31 PM SENSING SPECIALIST Ordering physician: AIDEN MCCRARY Indication: Syncope Technologist: Dayna Riojas [facility] Interpreting physician: Livan Flores DO PATIENT: [...] * * Final * * * CC mobile mum Medical Image : [id number] [id number] [facility] CNOVon 08-28-2023 CNOV Office Visit (CAWSTR ) J LUIS MADERA ([id number]) 1950 M Date Time Provider Department 08/28/23 10:20 AM AIDEN MCCRARY During your visit today, we recorded the following information about you: Pulse Respiration Blood pressure Weight 71/minute 16/minute 151/64 91.6 kg Aiden Mccrary MD 08/28/2023 11:43 AM Signed [facility]IONAL CARDIOLOGY Cardiology ([facility]) [address] [facility] [address] OUTPATIENT VISIT DATE 08/28/2023 PRIMARY CARE PHYSICIAN: Usman Patel [address] [place] [address] REFERRING PHYSICIAN: Temitope Lara [address] [facility] [address] CHIEF COMPLAINT: Dizziness HISTORY OF PRESENT ILLNESS: [...] obstructive pulmonary disease based on initial evaluation ([facility]) 2018 PAST SURGICAL HISTORY Procedure Laterality Date [...] S2 with (more content not included)... [facility] MRI CERVICAL SPINE WO IVCONo n [...] vertebrae with counting from the craniocervical junction. Drug Abuse Social Worker: JUJU Transcribe Date/Time: Aug 15 2023 2:23P Dictated by : SHIRIN PRADO MD This examination was interpreted and the report reviewed and electronically signed by: SHIRIN PRADO MD on Aug 15 2023 2:25PM EST [id number] [facility] CNPNon 08-14-2023 CNPN Telephone (4CQ) CASSYJ LUIS R ([id number]) 1950 M Date Time Provider Department 08/14/23 USMAN PATEL 4CQ During your visit today, we recorded the following information about you: Batsheva Parry 08/14/2023 2:32 PM Signed Patient is requesting new PT order for Dizziness [R42] Balance problem [R26.89] Abnormality of gait [R26.9] And then would like this order faxed to [facility] as [place] is to far to travel for the patient. Usman Patel MD 08/14/2023 3:22 PM Signed Order printed MD Ken Fraire Ma, Kathryn 08/14/2023 3:40 PM Signed Order faxed to [facility]. Detailed message left on pt identified [...] [R26.89] Dizziness [R42] Order(s):CONSULT TO PHYSICAL THERAPY [9052] Order #: [id number]: 1 FUTURE Prescriptions as of 08/14/2023 - [...] Status:Closed by NORMA ROGERS MA on 08/14/23 [facility] CNTHERAPYon 08-08-2023 CNTHERAPY OT/PT/Speech Visit (LDPT) J LUIS MADERA ([id number]) 1950 M Date Time Provider Department 08/08/23 1:30 PM CAWNEEN, MARY KAY LDPT Date Time Provider Department Center 08/08/2023 1:30 PM [id number], SARAH LDPT [place] [facility] Reason for Visit: PT Progress Note [...] tablet by mouth two times a day. Crm Campaign Manager: Addendum Therapy (PT/OT/Speech/Resp) ID: [id number] 08/08/2023 2:14 PM Author: MARY KAY BAIRES Signed by MARY KAY BAIRES PT, DPT on 08/08/2023 at 2:14 PM * * * This document replaces document [id number] * * * Document text: Program_ID:[id number] Access Code: [email or web address] URL: [email or web address] Date: 08-08-2023 Prepared By: Mary Kay Baires [...] 2 sets - 10 reps ----- Normal [facility] THERAPY NTon 08-08-2023 THERAPY NT HNO ID: [id number] Author: MARY KAY BAIRES, PT, DPT Service: ? Author Type: Physical Therapist Type: Therapy (PT/OT/Speech/Resp) Filed: 08/08/2023 14:06 Note Text: Program_ID:[id number] Access Code: [email or web address] URL: [email or web address] Date: 08-08-2023 Prepared By: Mary Kay Baires Program Notes Exercises - Sit to Stand with Armchair - x daily - 7 x weekly - 2 sets - 10 reps Normal [facility] CNPNon 07-20-2023 [place] Telephone ([place]) J LUIS MADERA ([id number]) 1950 M Date Time Provider Department 07/20/23 [...] Encounter Status:Closed by CAITY CAI on 07/20/23 [facility] CNOVon 07-19-2023 CNOV Office Visit (NEMOWS ) J LUIS MADERA ([id number]) 1950 M Date Time Provider Department 07/19/23 2:30 PM TEMITOPE LARA During your visit today, we recorded the following information about you: Pulse Respiration Blood pressure Weight 74/minute 18/minute 125/78 90.3 kg Temitope Lara PA-C 07/19/2023 4:16 PM Signed [facility] Date: July 19, 2023 Patient Name: J Luis Madera Referring physician: Usman Patel [address] [place] [address] Consult requested for dizziness by Dr. Patel. Recommendations will be communicated via shared medical record or US mail. Primary physician: Usman Patel [address] [place] [phone] Reason for Evaluation: Dizziness and seizures Subjective [...] He is here for established care with [facility] epilepsy department again. No seizure [...] niece called EMS and he was transported [facility]. Reported that his dizziness gets worse with standing but denies any presyncope or lightheaded sensation, described more of a room spinning dizziness. Improves when he sits down or lays down, has difficulty stating how often it occurs but notes that he falls from this dizziness once or twice a month. MRI obtained at [facility] showed no acute infarct and stable chronic changes. Patient does not remember much about his admission, states that no scans were obtained and has difficulty remembering. Notes that he has passed out in the past secondary to this dizziness and he estimates the last occurrence was 6 to 12 months ago. 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 [facility] CNPNon 07-19-2023 [facility] (NAT[facility]) CASSYJ LUIS R ([id number]) 1950 M Date Time Provider Department 07/19/23 [...] Status:Closed by BRENDA LUNDY on 07/19/23 [facility] CRP SerPl-mCncon 07-19-2023 CRP [Mass/Vol] 1.3 mg/dL High <0.9 [facility] Comment on above: Order Comment: Speci men Type: BLOOD SPECIMENOrdering Facility: [facility] Address: [address] [place] [address] Performed By: #### 2 132-9, 1987-5, 2885-2 ####[facility] LABCLIA [id number] [place] [address] [place] ESR Westergren method (Bld) [Velocity]on 07-19-2023 ESR (Bld) [Velocity] 46 mm/h High 0-15 [facility] Comment on above: Order Comment: Speci men Type: BLOOD SPECIMENOrdering Facility: [facility] Address: [address] [place] [address] Performed By: #### 4 537-7 ####[facility] LABIA [id number] [place] [address] [place] Methylmalonate SerPl-sCncon 07-19-2023 Methylmalonate [Moles/Vol] 0.40 umol/L Normal <=0.40 [facility] Comment on above: Order Comment: Speci men Type: BLOOD SPECIMENOrdering Facility: [facility] Address: [address] [place] [address] Result Comment: This test was developed and its performance characteristics determined by [facility]'s Alon JJody [facility] Pathology and Laboratory Medicine [place] ([facility]). It has not been cleared or approved by the FDA. [facility] is regulated under CLIA as qualified to perform high-complexity testing. This test is used for clinical purposes. It should not be regarded as investigational or for research. Performed By: #### 1 3964-2 ####[facility] LABCLIA [id number] [place] [address] [place] PROTEIN ELECTROPHORESIS SERU M WITH ANGEL (P)on 07-19-2023 Albumin [Mass/Vol] 4.11 g/dL Normal 3.43-5.41 [facility] Comment on above: Order Comment: Speci men Type: BLOOD SPECIMENOrdering Facility: [facility] Address: [address] [place] [address] Performed By: #### L [id number] ####[facility] LABIA [id number] [place] [address] [place] Alpha 1 globulin Elph [Mass/Vol] 0.30 g/dL Normal 0.18-0.43 [facility] Comment on above: Order Comment: Speci men Type: BLOOD SPECIMENOrdering Facility: [facility] Address: [address] [place] [address] Performed By: #### L [id number] ####[facility] LABIA [id number] [address] [place] Alpha 2 globulin Elph [Mass/Vol] 0.79 g/dL Normal 0.42-0.98 [facility] Comment on above: Order Comment: Speci men Type: BLOOD SPECIMENOrdering Facility: [facility] Address: [address] [place] [address] Performed By: #### L [id number] ####[facility] LABIA [id number] [place] [address] [place] Beta globulin Elph [Mass/Vol] 0.89 g/dL Normal 0.61-1.17 [facility] Comment on above: Order Comment: Speci men Type: BLOOD SPECIMENOrdering Facility: [facility] Address: [address] [place] [address] Performed By: #### L [id number] ####[facility] LABIA [id number] [place] [address] [place] COMMENT (SERUM PROT ELECTRO) Monoclonal Protein analysis (immunofixation) is not indicated. Normal [facility] Comment on above: Order Comment: Speci men Type: BLOOD SPECIMENOrdering Facility: [facility] Address: [address] [place] [address] Performed By: #### L [id number] ####[facility] LABCLIA [id number] [place] [address] [place] Gamma globulin Elph [Mass/Vol] 1.12 g/dL Normal 0.53-1.51 [facility] Comment on above: Order Comment: Speci men Type: BLOOD SPECIMENOrdering Facility: [facility] Address: [address] [place] [address] Performed By: #### L [id number] ####[facility] LABIA [id number] [address] [place] M-PROTEIN LOCATION Normal [facility] Comment on above: Order Comment: Speci men Type: BLOOD SPECIMENOrdering Facility: [facility] Address: [address] [place] [address] Result Comment: Not Applicable. Performed By: #### L [id number] ####[facility] LABCLIA [id number] [place] [address] [place] Protein Fractions [Interp] No definitive M protein is identified on protein electrophoresis. Normal No definitive M protein is identified on protein electrophores is. [facility] Comment on above: Order Comment: Speci men Type: BLOOD SPECIMENOrdering Facility: [facility] Address: [address] [place] [address] Performed By: #### L [id number] ####[facility] LABIA [id number] [place] [address] [place] Protein.monoclonal Elph [Mass/Vol] 0.00 g/dL Normal <=0.00 [facility] Comment on above: Order Comment: Speci men Type: BLOOD SPECIMENOrdering Facility: [facility] Address: [address] [place] [address] Performed By: #### L [id number] ####[facility] LABCLIA [id number] [place] [address] [place] SPE STAFF REVIEW Reviewed by Dr. Kira May MD [facility] Comment on above: Order Comment: Speci men Type: BLOOD SPECIMENOrdering Facility: [facility] Address: [address] [place] [address] Performed By: #### L [id number] ####[facility] LABIA [id number] [place] [address] [place] Prot SerPl-ncon 07-19-2023 Protein [Mass/Vol] 7.2 g/dL Normal 6.3-8.0 [facility] Comment on above: Order Comment: Speci men Type: BLOOD SPECIMENOrdering Facility: [facility] Address: [address] [place] [address] Performed By: #### 2 132-9, 1987-11, 2884-08 ####[facility] [id number] [address] Vit B12 [facility] 024 Cobalamin (Vitamin B12) [Mass/Vol] 285 pg/mL Normal 232-1245 [facility] Comment on above: Order Comment: Speci men Type: BLOOD SPECIMENOrdering Facility: [facility] Address: [address] [place] [address] Performed By: #### 2 132-9, 2884-08 ####[facility] [id number] [place] [id number] [place] CNTHERAPYon 07-14-2023 CNTHERAPY OT/PT/Speech Visit (LDPT) J LUIS MADERA ([id number]) 1950 M Date Time Provider Department 07/14/23 3:00 PM ELSA JOAQUIN LDPT Date Time Provider Department Center 07/14/2023 3:00 PM [id number], GABRIEL*LDPT [facility] Reason for Visit: PT Eval [747] [...] by mouth two times a day. Normal [facility] Laboratory - Chemistry and C hemistry - challengeOrdered By: Kike Malave on 06-25-2023 Free T4 [Mass/Vol] 0.82 ng/dL 0.76-1.46 [facility] Absolute lymphocyte countOrd ered By: Raoul Oliver on 06-24-2023 Lymphocytes Auto (Unsp spec) [#/Vol] 1.39 10*3/uL 0.83-4.51 [facility] Basophil percentageOrdered B y: Raoul Oliver on 06-24-2023 Basophils/100 WBC (Bld) 1.2 % 0-1 [facility] Chloride [Moles/Vol] 111 mmol/L 98-107 [facility] Eosinophils/100 WBC (Bld) 5.3 % 0-5 [facility] Glucose [Mass/Vol] 105 mg/dL 74-106 [facility] Comment on above: Fasting Glucose resu lt from 100 to 125 mg/dL suggests IMPAIRED HOMEOSTASIS per A.D.A. criteria. Neutrophils (Bld) [#/Vol] 3.3 10*3/uL 2.0-7.7 [facility] Neutrophils/100 WBC (Bld) 57.0 % 47-70 [facility] Potassium [Moles/Vol] 3.8 mmol/L 3.5-5.1 [facility] Sodium [Moles/Vol] 140 mmol/L 136-145 [facility] WBC (Bld) [#/Vol] 5.7 10*3/uL 4.4-11.0 [facility] Blood erythrocytes count (nu mber/volume)Ordered By: Raoul Oliver on 06-24-2023 RBC (Bld) [#/Vol] 3.54 10*6/uL 4.6-6.2 [facility] Blood hemoglobin measurement (mass/volume)Ordered By: Raoul Oliver on 06-24-2023 Hemoglobin (Bld) [Mass/Vol] 11.4 g/dL 13.0-16.5 [facility] Blood lymphocytes/100 leukoc ytesOrdered By: Raoul Oliver on 06-24-2023 Lymphocytes/100 WBC (Bld) 24.4 % 19-41 [facility] Blood monocytes/100 leukocyt esOrdered By: Raoul Oliver on 06-24-2023 Monocytes/100 WBC (Bld) 11.4 % 0-10 [facility] Blood platelet mean volumeOr dered By: Raoul Oliver on 06-24-2023 Platelet mean volume (Bld) [Entitic vol] 10.0 fL 6.2-12.0 [facility] Determination of erythrocyte mean corpuscular volume (MCV)Ordered By: Raoul Oliver on 06-24-2023 MCV (RBC) [Entitic vol] 99.2 fL 80-94 [facility] Hematocrit Auto (Bld) [Volum e fraction]Ordered By: Raoul Oliver on 06-24-2023 Hematocrit (Bld) [Volume fraction] 35.1 % 40-54 [facility] Laboratory - Chemistry and C hemistry - challengeOrdered By: Raoul Oliver on 06-24-2023 CO2 [Moles/Vol] 26.0 mmol/L 21.0-32.0 [facility] Urea nitrogen/Creatinine [Mass ratio] 9.0 mg/mg 10-20 [facility] Laboratory - Hematology and Cell countsOrdered By: Raoul Oliver on 06-24-2023 Erythrocyte distribution width (RBC) [Entitic vol] 48.0 fL 35.1-43.9 [facility] Erythrocyte distribution width (RBC) [Ratio] 13.1 % 11.6-14.6 [facility] Immature granulocytes/100 WBC (Bld) 0.700 % 0.0-0.9 [facility] Comment on above: IG% - Immature Granu locytes (promyelocytes, myelocytes and metamyelocytes) > 1% indicates that a LEFT SHIFT is Present. MCH (RBC) [Entitic mass] 32.2 pg 27.0-32.0 [facility] Nucleated RBC/100 WBC (Bld) [Ratio] 0 % 0-5 [facility] MCHC Auto (RBC) [Mass/Vol]Or dered By: Raoul Oliver on 06-24-2023 MCHC (RBC) [Mass/Vol] 32.5 g/dL 32-36 [facility] No Panel InformationOrdered By: Raoul Oliver on 06-24-2023 Estimated Creatinine Clearance Calc 49.63 ml/min [facility] Estimated GFR (MDRD) Amer 84 mL/min >60 [facility] Comment on above: GFR Calc Estimated GFR (MDRD) Non-Af Amer 69 mL/min >60 [facility] Comment on above: Non- GFR Calc Platelets bldOrdered By: Main Oliver on 06-24-2023 Platelets (Bld) [#/Vol] 249 10*3/uL 150-450 [facility] Serum or plasma calcium marvin urement (mass/volume)Ordered By: Raoul Oliver on 06-24-2023 Calcium [Mass/Vol] 8.3 mg/dL 8.5-10.1 [facility] Serum or plasma creatinine m easurement (mass/volume)Ordered By: Raoul Oliver on 06-24-2023 Creatinine [Mass/Vol] 1.11 mg/dL 0.70-1.30 [facility] Comment on above: The validity of the calculated GFR & GFRAA in patients over 70 years has not been determined. Clinical correlation is essential. Serum or plasma urea nitroge n measurement (mass/volume)Ordered By: Raoul Oliver on 06-24-2023 Urea nitrogen [Mass/Vol] 10 mg/dL 7-18 [facility] Thin prep Papanicolaou smear with manual screeningOrdered By: Raoul Oliver on 06-24-2023 Thin prep Papanicolaou smear with manual screening 3 5-15 [facility] Basophil percentageOrdered B y: Ethan Martinez on 06-23-2023 Basophil percentage 0 SEEN /hpf 0-5 [facility] Bilirubin Test strip Ql (U)O rdered By: Ethan Martinez on 06-23-2023 Bilirubin Ql (U) Negative Negative [facility] Ketones Test strip Ql (U)Ord ered By: Alisaus Michelle on 06-23-2023 Ketones Ql (U) Negative Negative [facility] Mucus LM Ql (Urine sed)Order ed By: Ethan Martinez on 06-23-2023 Mucus Ql (Urine sed) 0 SEEN /hpf [facility] Nitrite Test strip Ql (U)Ord ered By: Ethan Martinez on 06-23-2023 Nitrite Ql (U) Negative Negative [facility] No Panel InformationOrdered By: Raoul Oliver on 06-23-2023 Thyroid Stimulating Hormone (TSH) 4.71 uIU/mL 0.358-3.74 [facility] No Panel InformationOrdered By: Ethan Martinez on 06-23-2023 Troponin I High Sensitivity 6 pg/mL 3.0-78.0 [facility] Comment on above: Please Note: New [place] t Units and Gender Specific Reference Ranges. For more information see Policy Stat Procedure [place] High Sensitivity Troponin (TNIH) and attachments. Protein Test strip Ql (U)Ord ered By: Remus Michelle on 06-23-2023 Protein Ql (U) 15 mg/dl Negative [facility] Squamous epithelial cells de tection in urine sediment by light microscopyOrdered By: Remus Ungjose on 06-23-2023 Epithelial cells.squamous LM Ql (Urine sed) 0-5 SEEN /hpf 0-5 [facility] Urine blood detectionOrdered By: Remus Ungjose on 06-23-2023 RBC Ql (U) Negative Negative [facility] RBC Ql (U) 0 SEEN /hpf 0-5 [facility] Urine clarityOrdered By: Rem us Michelle on 06-23-2023 Clarity (U) Clear Clear [facility] Urine color determinationOrd ered By: Remus Michelle on 06-23-2023 Color (U) Yellow Yellow [facility] Urine glucose detectionOrder ed By: Remus Michelle on 06-23-2023 Glucose Ql (U) 100 mg/dl Normal [facility] Urine leukocyte esterase det ection by dipstickOrdered By: Remus Michelle on 06-23-2023 Leukocyte esterase Test strip Ql (U) Negative Negative [facility] Urine pHOrdered By: Remus Un gur on 06-23-2023 pH (U) 6.0 [pH] 5.0 - 8.0 [facility] Urine sediment bacteria coun t by microscopy (number/high power field)Ordered By: Remus Michelle on 06-23-2023 Bacteria LM.HPF (Urine sed) [#/Area] 0 /[HPF] None Seen [facility] Urine specific gravity measu rementOrdered By: Remus Michelle on 06-23-2023 Specific gravity (U) [Rel density] 1.015 1.002-1.030 [facility] Urobilinogen Auto test strip Ql (U)Ordered By: Remus Ungjose on 06-23-2023 Urobilinogen Ql (U) Normal mg/dl Normal [facility] CT CHEST WO IVCONon 11-25-19 [facility] SCREENING FOR AAAon 11-15 [facility] LUNG VOLUMESon 09-13-2022 [facility] NITRIC OXIDE, EXHALEDon - [facility] SPIROMETRY - BASELINE AND PO ST DILATORon 09-13-2022 ERV BOX (L) 0.43 L [facility] KHC16-29% POST (L/S) 1.49 L/S [facility] ZMJ21-95% PRE (L/S) 2.39 L/S [facility] FEV1 PRE (L) 1.98 L [facility] FEV1/FVC POST (%) 78 % [facility] FEV1/FVC PRE (%) 84 % [facility] FEV1_POST (L) 1.84 L [facility] FRC Box (L) 1.89 L [facility] FVC POST (L) 2.35 L [facility] FVC PRE (L) 2.37 L [facility] IC BOX (L) 1.91 L [facility] PEF POST (L/S) 5.55 L/S [facility] PEF PRE (L/S) 5.58 L/S [facility] RV Box (L) 1.42 L [facility] RV/TLC Box (%) 39 % [facility] TLC Box (L) 3.68 L [facility] VC (L) BOX 2.[address] [facility] [address] CHEST WO IVCONon 11-24-19 22 Radiology Result ACTIONABLE Abnormal [facility] XR Chest PA and Lateralon IMPRESSION: Left upper lobe nodular opacity could be infectious. Lungs are otherwise clear. Recommend follow-up with nonemergent chest CT. Drug Abuse Social Worker[facility] Transcribe Date/Time: Aug 13 2021 4:33P Dictated by : POORNIMA CANAS MD This examination was interpreted and the report reviewed and electronically signed by: POORNIMA CANAS MD on Aug 13 2021 4:35PM [facility] DIVISION OF RADIOLOGY * * *Final [...] clear. Recommend follow-up with nonemergent chest CT. Drug Abuse Social Worker: [facility] Transcribe Date/Time: Aug 13 2021 4:33P Dictated by : POORNIMA CANAS MD This examination was interpreted and the report reviewed and electronically signed by: POORNIMA CANAS MD on Aug 13 2021 4:35PM EST [facility] Radiology Study observation (narrative) Quinn Brown XR Chest PA and LateralOrder ed By: Ccf Provider on 08-13-2021 [facility] Vital Signs Date Time Vital Sign Value Performing Clinician Facility 05-02-2025 14:43-0400 Body height 162.[address] Usman Patel MD Work Phone: [facility] 10-20-2023 14:22-0400 Body weight 91.35 kg Usman Patel MD Work Phone: [facility] 10-20-2023 14:22-0400 Diastolic blood pressure 74 mm[Hg] Usman Patel MD Work Phone: [facility] 10-20-2023 14:22-0400 Heart rate 82 /min Usman Patel MD Work Phone: [facility] 10-20-2023 14:22-0400 Respiratory rate 18 /min Usman Patel MD Work Phone: [facility] 10-20-2023 14:22-0400 Systolic blood pressure 122 mm[Hg] Usman Patel MD Work Phone: [facility] 08-28-2023 10:36-0500 Body weight 91.63 kg Aiden Mccrary MD Work Phone: [facility] 08-28-2023 10:36-0500 Diastolic blood pressure 64 mm[Hg] Aiden Mccrary MD Work Phone: [facility] 08-28-2023 10:36-0500 Heart rate 71 /min Aiden Mccrary MD Work Phone: [facility] 08-28-2023 10:36-0500 Respiratory rate 16 /min Aiden Mccrary MD Work Phone: [facility] 08-28-2023 10:36-0500 SaO2% (BldA) [Mass fraction] 100 % Aiden Mccrary MD Work Phone: [facility] 08-28-2023 10:36-0500 Systolic blood pressure 151 mm[Hg] Aiden Mccrary MD Work Phone: [facility] 06-25-2023 13:23-0500 Heart rate 78 /min Dr. Usman Patel Work Phone: [facility] 06-25-2023 13:23-0500 Respiratory rate 18 /min Dr. Usman Patel Work Phone: [facility] 06-25-2023 11:36-0500 Body temperature 98 [degF] Dr. Usman Patel Work Phone: [facility] 06-25-2023 11:36-0500 Diastolic blood pressure 61 mm[Hg] Dr. Usman Patel Work Phone: [facility] 06-25-2023 11:36-0500 SaO2% (BldA) [Mass fraction] 96 % Dr. Usman Patel Work Phone: [facility] 06-25-2023 11:36-0500 Systolic blood pressure 113 mm[Hg] Dr. Usman Patel Work Phone: [facility] 06-23-2023 20:06-0500 Body height 162.[address] Usman Patel Work Phone: [facility] 06-23-2023 20:06-0500 Body mass index (BMI) [Ratio] 34.2 kg/m2 Dr. Usman Patel Work Phone: [facility] 06-23-2023 20:06-0500 Body weight 90.[address] Usman Patel Work Phone: [facility] 05-17-2023 13:59-0400 Body weight 90.27 kg Shayna Frias TELEPHONE INTERVIEWER.NURSING HOME SOCIAL WORKER Work Phone: [facility] 05-17-2023 13:59-0400 Diastolic blood pressure 76 mm[Hg] Shayna Frias TELEPHONE INTERVIEWER.NURSING HOME SOCIAL WORKER Work Phone: [facility] 05-17-2023 13:59-0400 Heart rate 88 /min Shayna Frias TELEPHONE INTERVIEWER.NURSING HOME SOCIAL WORKER Work Phone: [facility] 05-17-2023 13:59-0400 Respiratory rate 16 /min Shayna Frias TELEPHONE INTERVIEWER.NURSING HOME SOCIAL WORKER Work Phone: [facility] 05-17-2023 13:59-0400 SaO2% (BldA) [Mass fraction] 98 % Shayna Frias TELEPHONE INTERVIEWER.NURSING HOME SOCIAL WORKER Work Phone: [facility] 05-17-2023 13:59-0400 Systolic blood pressure 110 mm[Hg] Shayna Frias TELEPHONE INTERVIEWER.NURSING HOME SOCIAL WORKER Work Phone: [facility] 02-24-2023 19:04-0400 Body mass index (BMI) [Ratio] 34.2 kg/m2 [facility] 02-24-2023 19:04-0400 Body weight 93.3 kg [facility] 02-24-2023 13:55-0400 Body height 165.1 cm [facility] 02-24-2023 13:55-0400 Body temperature 97.1 [degF] [facility] 02-24-2023 13:55-0400 Diastolic blood pressure 80 mm[Hg] [facility] 02-24-2023 13:55-0400 Heart rate 72 /min [facility] 02-24-2023 13:55-0400 Respiratory rate 18 /min [facility] 02-24-2023 13:55-0400 SaO2% (BldA) [Mass fraction] 99 % [facility] 02-24-2023 13:55-0400 Systolic blood pressure 159 mm[Hg] [facility] 09-13-2022 13:21-0500 Body height 160 cm Pulm Wstr Work Phone: [facility] 09-13-2022 13:21-0500 Body weight 92.08 kg Pulm Wstr Work Phone: [facility] 09-13-2022 13:21-0500 Heart rate 74 /min Pulm Wstr Work Phone: [facility] 09-13-2022 13:21-0500 Respiratory rate 16 /min Pulm Wstr Work Phone: [facility] 09-13-2022 13:21-0500 SaO2% (BldA) [Mass fraction] 96 % Pulm Wstr Work Phone: [facility] 09-08-2022 14:01-0500 Body temperature 98.01 [degF] Shayna Tannhof TELEPHONE INTERVIEWER.NURSING HOME SOCIAL WORKER Work Phone: [facility] 09-08-2022 14:01-0500 Body weight 93.44 kg Shayna Tannhof TELEPHONE INTERVIEWER.NURSING HOME SOCIAL WORKER Work Phone: [facility] 09-08-2022 14:01-0500 Diastolic blood pressure 74 mm[Hg] Shayna Tannhof TELEPHONE INTERVIEWER.NURSING HOME SOCIAL WORKER Work Phone: [facility] 09-08-2022 14:01-0500 Heart rate 104 /min Shayna Tannhof TELEPHONE INTERVIEWER.NURSING HOME SOCIAL WORKER Work Phone: [facility] 09-08-2022 14:01-0500 Respiratory rate 16 /min Shayna Tannhof TELEPHONE INTERVIEWER.NURSING HOME SOCIAL WORKER Work Phone: [facility] 09-08-2022 14:01-0500 SaO2% (BldA) [Mass fraction] 96 % Shayna Tannhof TELEPHONE INTERVIEWER.NURSING HOME SOCIAL WORKER Work Phone: [facility] 09-08-2022 14:01-0500 Systolic blood pressure 126 mm[Hg] Shayna Tannhof TELEPHONE INTERVIEWER.NURSING HOME SOCIAL WORKER Work Phone: [facility] 08-24-2022 16:11-0500 Body temperature 98.1 [degF] Shayna Tannhof TELEPHONE INTERVIEWER.NURSING HOME SOCIAL WORKER Work Phone: [facility] 08-24-2022 16:11-0500 Body weight 90.72 kg Shayna Tannhof TELEPHONE INTERVIEWER.NURSING HOME SOCIAL WORKER Work Phone: [facility] 08-24-2022 16:11-0500 Diastolic blood pressure 90 mm[Hg] Shayna Tannhof TELEPHONE INTERVIEWER.NURSING HOME SOCIAL WORKER Work Phone: [facility] 08-24-2022 16:11-0500 Heart rate 99 /min Shayna Tannhof TELEPHONE INTERVIEWER.NURSING HOME SOCIAL WORKER Work Phone: [facility] 08-24-2022 16:11-0500 Respiratory rate 16 /min Shayna Tannhof TELEPHONE INTERVIEWER.NURSING HOME SOCIAL WORKER Work Phone: [facility] 08-24-2022 16:11-0500 SaO2% (BldA) [Mass fraction] 97 % Shayna Tannhof TELEPHONE INTERVIEWER.NURSING HOME SOCIAL WORKER Work Phone: [facility] 08-24-2022 16:11-0500 Systolic blood pressure 138 mm[Hg] Shayna Tannhof TELEPHONE INTERVIEWER.NURSING HOME SOCIAL WORKER Work Phone: [facility] 05-17-2022 14:44-0400 Body weight 92.9 kg Usman Patel MD Work Phone: [facility] 05-17-2022 14:44-0400 Diastolic blood pressure 90 mm[Hg] Usman Patel MD Work Phone: [facility] 05-17-2022 14:44-0400 Heart rate 74 /min Usman Patel MD Work Phone: [facility] 05-17-2022 14:44-0400 Respiratory rate 16 /min Usman Patel MD Work Phone: [facility] 05-17-2022 14:44-0400 Systolic blood pressure 154 mm[Hg] Usman Patel MD Work Phone: [facility] Encounters Encounter Date Encounter Type Care Provider Facility Start: 05-20-2025 ambulatory Usman Patel Facilit y:[facility] Start: 05-13-2025 ambulatory Usman Patel Facilit y:[facility] Start: 04-22-2025 ambulatory Jollyteofilo Macdonald OLS Fac ility:[facility] Start: 04-22-2025 Registered Referred Jolly Macdonald DOG BOARDER-C -[facility] Start: 04-01-2025 ambulatory Jolly Macdonald OLS Fac ility:[facility] Start: 04-01-2025 Registered Referred Jolly Macdonald DOG BOARDER-C -[facility] Start: 03-28-2025 End: 03-28-[address] Usman Paetl MD Work Phone: [facility] Start: 03-28-2025 End: 03-28-2025 Patient encounter procedure Jolly Macdonald DOG BOARDER- -[facility] Work Phone: Start: 03-18-2025 ambulatory Jolly Macdonald OLS Fac ility:[facility] Start: 03-18-2025 Registered Referred Jolly Macdonald NP-C -[facility] Start: 02-18-2025 End: 02-18-[address] Usmna Patel MD Work Phone: [facility] Start: 02-18-2025 End: 02-18-[address] Micaela Holder MD -[facility] Work Phone: Start: 02-18-2025 Registered Referred Micaela Holder MD -[facility] Start: 02-18-2025 End: 02-18-2025 ambulatory Micaela MÉNDEZ Facility:[facility] Start: 02-06-2025 End: 02-06-[address] Usman Patel MD Work Phone: [facility] Start: 02-06-2025 End: 02-06-2025 Patient encounter procedure Poornima LOTT -[facility] Work Phone: Start: 01-14-2025 End: 01-14-[address] Usman Patel MD Work Phone: [facility] Start: 01-14-2025 End: 01-14-2025 Departed Referred Jolly Macdonald -[facility] Start: 01-14-2025 Registered Referred Jolly Macdonald [facility] Start: 01-14-2025 End: 01-14-2025 ambulatory Jolly MÉNDEZ Facility:[facility] Start: 01-07-2025 ambulatory Micaela MÉNDEZ Fa cility:[facility] Start: 01-07-2025 Registered Referred Micaela Holder MD [facility] Start: 12-24-2024 End: 12-24-[address] Usman Patel MD Work Phone: [facility] Start: 12-24-2024 End: 12-24-[address] Micaela Holder MD -[facility] Work Phone: Start: 12-17-2024 ambulatory Jolly MÉNDEZ Fac ility:[facility] Start: 12-17-2024 Registered Referred Jolly Macdonald [facility] Start: 11-26-2024 End: 11-26-[address] Usman Patel MD Work Phone: [facility] Work Phone: Start: 11-26-2024 End: 11-26-2024 Departed Referred Micaela Holder MD [facility] Start: 11-26-2024 End: 11-26-2024 ambulatory Micaela MÉNDEZ Facility:[facility] Start: 11-19-2024 End: 11-19-[address] Usman Patel MD Work Phone: [facility] Work Phone: Start: 11-19-2024 End: 11-19-2024 Departed Referred Jolly Macdonald DOG BOARDER-C -[facility] Start: 11-19-2024 Registered Referred Jolly Macdonald DOG BOARDER-C -[facility] Start: 11-18-2024 End: 11-19-[address] Usman Patel MD Work Phone: [facility] Start: 11-18-2024 End: 11-18-2024 Patient encounter procedure Jolly Macdonald DOG BOARDER-C -[facility] Work Phone: Start: 10-15-2024 End: 10-15-[address] Usman Patel MD Work Phone: [facility] Work Phone: Start: 10-15-2024 End: 10-15-[address] Micaela Holder MD -[facility] Work Phone: Start: 10-15-2024 End: 10-15-2024 Departed Referred Jolly Macdonald DOG BOARDER-C -[facility] Start: 10-15-2024 Registered Referred Jolly Macdonald DOG BOARDER-C -[facility] Start: 10-15-2024 End: 10-15-2024 ambulatory Jolly MÉNDEZ Facility:[facility] Start: 10-04-2024 End: 10-04-[address] Usman Patel MD Work Phone: [facility] Work Phone: Start: 10-04-2024 End: 10-04-2024 Departed Referred Micaela Holder MD -[facility] Start: 10-04-2024 Registered Referred Micaela Holder MD [facility] Start: 10-04-2024 End: 10-04-2024 ambulatory Micaela MÉNDEZ Facility:[facility] Start: 09-17-2024 End: 09-17-[address] Usman Patel MD Work Phone: [facility] Work Phone: Start: 09-17-2024 End: 09-17-2024 Departed Referred Micaela Holder MD [facility] Start: 09-17-2024 End: 09-17-2024 ambulatory Efewongbe Olekamilahe OLS Facility:[facility] Start: 09-03-2024 ambulatory Efewongbe Loriee OLS Fa cility:[facility] Start: 09-03-2024 Registered Referred Micaela Holder MD [facility] Start: 08-20-2024 ambulatory Efewongbe Oleghe OLS Fa cility:[facility] Start: 08-20-2024 [facility] Start: 07-23-2024 ambulatory Efewongjesi Meloe OLS Fa cility:[facility] Start: 07-23-2024 Registered Referred Micaela Holder MD [facility] Start: 07-02-2024 End: 07-02-2024 Telephone encounter Usman Patel MD Work Phone: [facility] Comment on above: Forms (90 day order for [place]) Start: 06-18-2024 End: 06-18-2024 ambulatory Usman Patel Facility:[facility] Start: 05-09-2024 End: 05-10-2024 Telephone encounter Usman Patel MD Work Phone: [facility] Comment on above: Forms ([place]) Start: 03-05-2024 End: 03-05-2024 Refill Usman Patel MD Work Phone: [facility] Comment on above: Med Change Request Start: 03-04-2024 End: 03-04-2024 Refill Usman Patel MD Work Phone: [facility] Comment on above: Refill Request Start: 02-06-2024 Telephone encounter Usman mccarthy MD Work Phone: [facility] [place] Comment on above: Forms ([place] [facility] 90 day order) Start: 10-20-2023 End: 10-20-2023 [facility] Start: 10-20-2023 End: 10-20-2023 Patient encounter procedure Usman Patel MD Work Phone: [facility] [place] Comment on above: Hypothyroidism, acqu ired (Primary Dx); Balance problem; Dizziness; Generalized convulsive epilepsy (HCC); COPD with chronic bronchitis (HCC); Cerebral palsy, unspecified type (HCC) Start: 10-19-2023 Telephone encounter Usman mccarthy MD Work Phone: [facility] [place] Comment on above: Forms (Orders from [place] - 90 day) Start: 09-19-2023 End: 09-19-2023 ambulatory AIDEN MCCRARY Facility:[facility] Start: 09-05-2023 End: 09-05-2023 ambulatory AIDEN MCCRARY Facility:[facility] Start: 08-28-2023 End: 08-28-2023 ambulatory [facility] Facility:[facility] Start: 08-28-2023 End: 08-28-2023 Patient encounter procedure Aiden Mccrary MD Work Phone: Cardiology Comment on above: Syncope and collapse ; Vasovagal syncope; Palpitations Start: 08-15-2023 End: 08-15-2023 ambulatory [facility] Facility:[facility] Start: 08-08-2023 End: 08-08-2023 ambulatory [facility] Facility:[facility] Start: 07-19-2023 End: 07-19-2023 ambulatory [facility] Facility:[facility] Start: 07-19-2023 End: 07-19-2023 ambulatory [facility] Facility:[facility] Start: 07-14-2023 End: 07-15-2023 ambulatory [facility] Facility:[facility] Start: 06-27-2023 Patient Outreach Usman zuñiga MD Work Phone: [facility] [place] Comment on above: Transition Of Care Start: 06-25-2023 Non-patient / Non-visit Dr. Allison Patel Work Phone: [facility] Work Phone: Start: 06-24-2023 Non-patient / Non-visit Dr. Allison Patel Work Phone: [facility] Work Phone: Start: 06-23-2023 Non-patient / Non-visit Dr. Allison Patel Work Phone: [facility] Work Phone: Start: 06-23-2023 End: 06-25-2023 Evaluation and management of inpatient Dr. Usman Patel Work Phone: [facility] Surgical 3 Work Phone: Start: 06-23-2023 End: 06-25-[address] Usman Patel Work Phone: [facility] Work Phone: Start: 06-23-2023 Telephone encounter Usman mccarthy MD Work Phone: [facility] Comment on above: Patient Update Start: 06-01-2023 Refill Usman humphries MD Work Phone: [facility] Comment on above: Refill Request Start: 05-17-2023 End: 05-17-2023 Patient encounter procedure Shayna Frias APRN.CNP Work Phone: [facility] Comment on above: Generalized convulsi ve epilepsy (HCC) (Primary Dx); Imbalance; COPD with chronic bronchitis; Hypothyroidism, acquired; Cerebral palsy, unspecified type (HCC); Prostate cancer screening; Dyslipidemia, goal LDL below 100 Start: 02-27-2023 Telephone encounter Usman mccarthy MD Work Phone: [facility] Comment on above: Patient Update (Fall ) Start: 02-24-2023 End: 02-24-2023 Emergency department patient visit [facility] Work Phone: Start: 11-24-2022 End: 11-24-2022 Subsequent hospital visit by physician [facility] (I-[facility]) Work Phone: Cat Scan Comment on above: Lung nodules [R91.8] Start: 11-15-2022 End: 11-15-2022 Subsequent hospital visit by physician Us [facility] 2 Work Phone: Radiology Comment on above: Screening for AAA (a bdominal aortic aneurysm) [Z13.6] Start: 09-19-2022 Telephone encounter Shayna mahoney TELEPHONE INTERVIEWER.NURSING HOME SOCIAL WORKER Work Phone: [facility] [place] Comment on above: Results (PFT's) Start: 09-13-2022 End: 09-13-2022 ambulatory Pulm Lab [facility] Work Phone: [facility] Comment on above: Spirometry Start: 09-13-2022 End: 09-13-2022 Patient encounter procedure [facility] Work Phone: [facility] Start: 09-08-2022 End: 09-08-2022 Patient encounter procedure Shayna rFias APRN.NURSING HOME SOCIAL WORKER Work Phone: [facility] [place] Comment on above: Cough, unspecified t ype (Primary Dx); SOB (shortness of breath); COPD with chronic bronchitis (HCC) Start: 09-07-2022 Telephone encounter Usman mccarthy MD Work Phone: [facility] Comment on above: Appointment Start: 08-25-2022 Telephone encounter Shayna mahoney TELEPHONE INTERVIEWER.NURSING HOME SOCIAL WORKER Work Phone: [facility] Comment on above: Results (COVID/flu.) Start: 08-24-2022 End: 08-24-2022 Patient encounter procedure Shayna Frias APRN.NURSING HOME SOCIAL WORKER Work Phone: [facility] Comment on above: Sinobronchitis (Prim uvaldo Dx) Start: 07-12-2022 Telephone encounter Usman mccarthy MD Work Phone: [facility] Comment on above: Forms ([facility]) Start: 06-10-2022 Telephone encounter Usman mccarthy MD Work Phone: [facility] Comment on above: Results Start: 05-24-2022 Telephone encounter Fritz fritz NURSING HOME SOCIAL WORKER Work Phone: [facility] Comment on above: Results Start: 05-17-2022 End: 05-17-2022 Patient encounter procedure Usman Patel MD Work Phone: [facility] Comment on above: Hypothyroidism, acqu ired (Primary Dx); Need for influenza vaccination; Need for COVID-19 vaccine; Generalized convulsive epilepsy (HCC); Imbalance; COPD with chronic bronchitis (HCC); Obesity, Class II, BMI 35-39.9; Elevated PSA; Cerebral palsy, unspecified type (HCC) Start: 12-08-2021 ambulatory Lora chauhan RN Work Phone: [employer] Comment on above: [employer] Monitor ing (Enrollment Outreach) Start: 11-23-2021 End: 11-23-2021 Subsequent hospital visit by physician [facility] (I-Stat) Work Phone: Cat Scan Comment on above: Lung nodules [R91.8] Start: 11-12-2021 Telephone encounter Usman mccarthy MD Work Phone: [facility] Comment on above: Results Start: 08-13-2021 End: 08-13-2021 Subsequent hospital visit by physician Xr [facility] [place] Work Phone: Radiology Comment on above: [...] 09-13-2022 Nitric oxide gas determination Shayna Frias TELEPHONE INTERVIEWER.NURSING HOME SOCIAL WORKER Work Phone: Start: 09-13-2022 Brncdilat rspse spmt ry pre&post-brncdilat admn Shayna Frias TELEPHONE INTERVIEWER.NURSING HOME SOCIAL WORKER Work Phone: Start: 05-17-2022 INFLUENZA SEASONAL QUADRIVALENT HIGH DOSE AGE 65+ Usman Patel MD Work Phone: Start: 05-17-2022 [employer] COVI D-19 BIVALENT BOOSTER VACCINE, AGE 12+ YR Usman Patel MD Work Phone: Start: 11-23-2021 Ct thorax w/o contra st material Usman Patel MD Work Phone: Start: 08-13-2021 Radiologic exam ches t 2 views Brenda Oneal TELEPHONE INTERVIEWER.NURSING HOME SOCIAL WORKER Work Phone: Start: 05-10-2021 Adult depression scr eening assessment Usman Patel MD Work Phone: Start: 03-03-2020 Lipid 1996 panel - S arabella or Plasma Shayna Frias TELEPHONE INTERVIEWER.NURSING HOME SOCIAL WORKER Work Phone: Start: 02-01-2016 Colonoscopy Usman woodruff MD Work Phone: Plan of Treatment Date Care Activity Detail Author Start: 11-14-2032 Urine microalbumin profile [facility] Start: 06-05-2028 Lipid 1996 panel - S arabella or Plasma Lipid Screening [facility] Start: 06-05-2028 Lipid panel Lipid Screening [facility] Start: 10-19-2026 Diabetes Screening Diabetes Screenin g [facility] Start: 06-05-2026 Diabetes Screening Diabetes Screenin g [facility] Start: 01-31-2026 Colonoscopy COLONOSCOPY [facility] Start: 01-31-2026 COLORECTAL CANCER SCREENING COLORECTAL CANCER SCREENING [facility] Start: 01-31-2026 Screening for malign ant neoplasm of colon [facility] Start: 05-13-2025 Registered Referred Registered Refer [facility] Start: 03-03-2025 Lipid 1996 panel - S arabella or Plasma Lipid Screening [facility] Start: 03-03-2025 LIPID SCREEN LIPID SCREEN [facility] Start: 11-08-2024 DIABETES SCREEN DIABETES SCREEN [facility] Start: 11-08-2024 Diabetes Screening Diabetes Screenin g [facility] Start: 10-19-2024 Annual PCP Team Art Objects Repairer main Disease Visit Annual PCP Team Chronic Disease Visit [facility] Start: 10-19-2024 Covid-19 Vaccine () Covid-19 Vaccine () [facility] Comment on above: Postponed from 03/17 (Declined at this time) Start: 07-08-2024 End: 07-08-2024 Patient encounter procedure 07/08/2024 3:20 PM EST Office Visit Cardiology [address] [place] [id number] Maria Guadalupe Shin MD [address] [facility] [address], [address] [place] [address] follow up Cardiology Comment on above: follow up Start: 07-04-2024 Annual PCP Team Art Objects Repairer main Disease Visit Annual PCP Team Chronic Disease Visit [facility] Start: 05-17-2024 Annual PCP Team Art Objects Repairer main Disease Visit Annual PCP Team Chronic Disease Visit [facility] Start: 04-19-2024 End: 04-19-2024 Patient encounter procedure 04/19/2024 2:00 PM EDT Office Visit Family [facility] [address] [place], [place] [id number] Usman Patel MD [address] [place], [place] [id number] 6 month follow up [facility] Comment on above: 6 month follow up Start: 03-17-2024 Covid-19 Vaccine ( season) Covid-19 Vaccine () [facility] Start: 03-17-2024 Influenza vaccination Influenza Vacc ine (#1) [facility] Start: 03-13-2024 End: 03-13-2024 Patient encounter procedure 03/13/2024 3:30 PM EDT Office Visit Neurology [address] [place], [place] [address] Temitope Lara PA-C [address] [place], [place] [id number] 3 month follow up Neurology Comment on above: 3 month follow up Start: 11-15-2023 ANNUAL PCP TEAM HULL GRINDER MAIN DISEASE VISIT ANNUAL PCP TEAM CHRONIC DISEASE VISIT [facility] Start: 09-08-2023 ANNUAL PCP TEAM HULL GRINDER MAIN DISEASE VISIT ANNUAL PCP TEAM CHRONIC DISEASE VISIT [facility] Start: 08-24-2023 ANNUAL PCP TEAM HULL GRINDER MAIN DISEASE VISIT ANNUAL PCP TEAM CHRONIC DISEASE VISIT [facility] Start: 07-17-2023 Advance Directive Discussion Advance Directive Discussion [facility] Start: 07-17-2023 Behavioral Health Screening Behavioral Health Screening [facility] Start: 07-17-2023 Depression Assessment Depression Ass essment [facility] Start: 06-25-2023 Patient discharge [facility] Start: 06-23-2023 End: 06-23-2023 Following clinical pathway protocol [facility] Start: 06-23-2023 Ambulation without limitation [facility] Start: 06-23-2023 Assessment of risk o f venous thromboembolism [facility] Start: 06-23-2023 Insertion of cathete r into peripheral vein [facility] Start: 06-23-2023 Providing care accor ding to standard [facility] Start: 06-23-2023 Referral to occupati onal therapist [facility] Start: 06-23-2023 Referral to service [facility] Start: 06-23-2023 [facility] Start: 06-23-2023 Admission procedure [facility] Start: 06-23-2023 Inhalation therapy procedure [facility] Start: 05-17-2023 ANNUAL PCP TEAM HULL GRINDER MAIN DISEASE VISIT ANNUAL PCP TEAM CHRONIC DISEASE VISIT [facility] Start: 05-17-2023 End: 08-16-2023 carBAMazepine [Mass/volume] in Serum or Plasma CARBAMAZEPI/TEGRETOL Lab Routine Generalized convulsive epilepsy (HCC) Expected: 05/17/2023, Expires: 08/16/2023 [facility] Work Phone: Comment on above: Expected: 05/17/2023 , Expires: 08/16/2023 Start: 05-17-2023 End: 08-16-2023 CBC W Auto Differential panel - Blood CBC + DIFF Lab Routine Generalized convulsive epilepsy (HCC) Expected: 05/17/2023, Expires: 08/16/2023 [facility] Work Phone: Comment on above: Expected: 05/17/2023 , Expires: 08/16/2023 Start: 05-17-2023 End: 08-16-2023 Comprehensive metabolic 2000 panel - Serum or Plasma COMP METABOLIC PANEL Lab Routine Generalized convulsive epilepsy (HCC) Expected: 05/17/2023, Expires: 08/16/2023 [facility] Work Phone: Comment on above: Expected: 05/17/2023 , Expires: 08/16/2023 Start: 05-17-2023 End: 08-16-2023 levETIRAcetam [Mass/volume] in Serum or Plasma LEVETIRACETAM Lab Routine Generalized convulsive epilepsy (HCC) Expected: 05/17/2023, Expires: 08/16/2023 [facility] Work Phone: Comment on above: Expected: 05/17/2023 , Expires: 08/16/2023 Start: 05-17-2023 End: 08-16-2023 Lipid 1996 panel - Serum or Plasma LIPID PANEL BASIC Lab Routine Dyslipidemia, goal LDL below 100 Expected: 05/17/2023, Expires: 08/16/2023 [facility] Work Phone: Comment on above: Expected: 05/17/2023 , Expires: 08/16/2023 Start: 05-17-2023 End: 08-16-2023 PSA/PROSTSPECAG SCRN PSA/PROSTSPECAG SCRN Lab Routine Prostate cancer screening Expected: 05/17/2023, Expires: 08/16/2023 [facility] Work Phone: Comment on above: Expected: 05/17/2023 , Expires: 08/16/2023 Start: 05-17-2023 End: 08-16-2023 Thyrotropin [Units/volume] in Serum or Plasma TSH BLD Lab Routine Hypothyroidism, acquired Expected: 05/17/2023, Expires: 08/16/2023 [facility] Work Phone: Comment on above: Expected: 05/17/2023 , Expires: 08/16/2023 Start: 03-17-2023 Covid-19 Vaccine () Covid-19 Vaccine () [facility] Start: 03-17-2023 Influenza vaccination [facility] Start: 11-23-2022 Influenza vaccination LUNG CANCER SC REENING [facility] Start: 11-14-2022 End: 01-14-2023 carBAMazepine [Mass/volume] in Serum or Plasma CARBAMAZEPI/TEGRETOL Lab Routine Generalized convulsive epilepsy (HCC) Expected: 11/14/2022 (Approximate), Expires: 01/14/2023 [facility] Work Phone: Comment on above: Expected: 11/14/2022 (Approximate), Expires: 01/14/2023 Start: 11-14-2022 End: 01-14-2023 Comprehensive metabolic 2000 panel - Serum or Plasma COMP METABOLIC PANEL Lab Routine Obesity, Class II, BMI 35-39.9 Expected: 11/14/2022 (Approximate), Expires: 01/14/2023 [facility] Work Phone: Comment on above: Expected: 11/14/2022 (Approximate), Expires: 01/14/2023 Start: 11-14-2022 End: 01-14-2023 levETIRAcetam [Mass/volume] in Serum or Plasma LEVETIRACETAM Lab Routine Generalized convulsive epilepsy (HCC) Expected: 11/14/2022 (Approximate), Expires: 01/14/2023 [facility] Work Phone: Comment on above: Expected: 11/14/2022 (Approximate), Expires: 01/14/2023 Start: 11-14-2022 End: 01-14-2023 Lipid 1996 panel - Serum or Plasma LIPID PANEL BASIC Lab Routine Obesity, Class II, BMI 35-39.9 Expected: 11/14/2022 (Approximate), Expires: 01/14/2023 [facility] Work Phone: Comment on above: Expected: 11/14/2022 (Approximate), Expires: 01/14/2023 Start: 11-14-2022 End: 01-14-2023 Thyrotropin [Units/volume] in Serum or Plasma TSH BLD Lab Routine Hypothyroidism, acquired Expected: 11/14/2022 (Approximate), Expires: 01/14/2023 [facility] Work Phone: Comment on above: Expected: 11/14/2022 (Approximate), Expires: 01/14/2023 Start: 11-08-2022 ANNUAL PCP TEAM HULL GRINDER MAIN DISEASE VISIT ANNUAL PCP TEAM CHRONIC DISEASE VISIT [facility] Start: 09-14-2022 COVID-19 VACCINE (5 - Moderna series) COVID-19 VACCINE (5 - Moderna series) [facility] Start: 09-08-2022 End: 10-08-2023 LUNG VOLUMES LUNG VOLUMES PFT Routine SOB (shortness of breath) COPD with chronic bronchitis (HCC) Expected: 09/08/2022, Expires: 10/08/2023 [facility] Work Phone: Comment on above: Expected: 09/08/2022 , Expires: 10/08/2023 Start: 07-24-2022 End: 09-23-2022 Thyrotropin [Units/volume] in Serum or Plasma TSH BLD Lab Routine Hypothyroidism, acquired Expected: 07/24/2022 (Approximate), Expires: 09/23/2022 [facility] Work Phone: Comment on above: Expected: 07/24/2022 (Approximate), Expires: 09/23/2022 Start: 07-17-2022 ADVANCE DIRECTIVE DISCUSSION ADVANCE DIRECTIVE DISCUSSION [facility] Start: 07-17-2022 DEPRESSION ASSESSMENT DEPRESSION ASS ESSMENT [facility] Start: 05-17-2022 End: 07-17-2022 Prostate specific Ag [Mass/volume] in Serum or Plasma [facility] Work Phone: Comment on above: Expected: 05/17/2022 , Expires: 07/17/2022 Start: 05-17-2022 End: 07-17-2022 Thyrotropin [Units/volume] in Serum or Plasma [facility] Work Phone: Comment on above: Expected: 05/17/2022 , Expires: 07/17/2022 Start: 05-10-2022 Adult depression scr ning assessment DEPRESSION SCREENING [facility] Start: 11-30-2021 COVID-19 VACCINE (4 - Booster for Moderna series) COVID-19 VACCINE (4 - Booster for Moderna series) [facility] Start: 07-17-2021 DEPRESSION ASSESSMENT DEPRESSION ASS ESSMENT [facility] Start: 2010 RSV Vaccine (1 - 1-d ose 60+ series) RSV Vaccine (1 - 1-dose 60+ series) [facility] Start: 2010 RSV Vaccine (1 - Ris k 60-74 years 1-dose series) RSV Vaccine (1 - Risk 60-74 years 1-dose series) [facility] Start: 2005 [facility] Start: 2000 SHINGRIX VACCINE (1 of 2) DUMONT GRIX VACCINE (1 of 2) [facility] Start: 1995 COLOGUARD (FIT-DNA) COLOGUARD (FIT-D NA) [facility] Start: [address] COLONOGRAPHY [facility] Start: 1995 FECAL OCCULT BLOOD FECAL OCCULT BLOO D [facility] Start: 1995 Screening for malign ant neoplasm of colon [facility] Start: 1995 SIGMOIDOSCOPY SIGMOIDOSCOPY [facility] Start: 1980 Zoledronic acid therapy ALPHA- 1 ANTITRYPSIN DEFICIENCY SCREENING [facility] Start: 1969 Urine microalbumin profile DTAP,TDAP ,TD (1 - Tdap) [facility] Start: 1968 Anxiety Screening Anxiety Screening [facility] Start: 1968 Depression Screening Depression Scre ening [facility] Start: 1956 PNEUMOCOCCAL: 65+ (1 - PCV) PNEUMOCOCCAL: 65+ (1 - PCV) [facility] Start: 1950 ABDOMINAL AORTIC ANE URYSM SCREENING ABDOMINAL AORTIC ANEURYSM SCREENING [facility] End: 08-28-2024 Echocardiography ECHO Cardiology Routine Syncope and collapse Palpitations 1 Occurrences starting 08/28/2023 until 08/28/2024 [facility] Work Phone: Comment on above: 1 Occurrences starti ng 08/28/2023 until 08/28/2024 Influenza virus A an d B RNA and SARS-CoV-2 (COVID-19) N gene panel - Respiratory specimen by JOY with probe detection COVID WITH FLUA+B, ROUTINE Microbiology Routine Sinobronchitis Ordered: 08/24/2022 [facility] Work Phone: Comment on above: Ordered: 08/24/2022 End: 10-08-2023 NITRIC OXIDE, EXHALED NITRIC OXIDE, EXHALED PFT Routine SOB (shortness of breath) COPD with chronic bronchitis (HCC) 1 Occurrences starting 09/08/2022 until 10/08/2023 [facility] Work Phone: Comment on above: 1 Occurrences starti ng 09/08/2022 until 10/08/2023 OUTSIDE VENDOR CARDI AC OUTPATIENT EXTENDED RHYTHM RECORDING (WITHOUT TELEMETRY) OUTSIDE VENDOR CARDIAC OUTPATIENT EXTENDED RHYTHM RECORDING (WITHOUT TELEMETRY) Holter Routine Syncope and collapse Palpitations Ordered: 08/28/2023 [facility] Work Phone: Comment on above: Ordered: 08/28/2023 Patient Education ED Fracture, Foot [facility] Work Phone: Patient referral [facility] Work Phone: End: 10-08-2023 SPIROMETRY - BASELINE AND POST DILATOR SPIROMETRY - BASELINE AND POST DILATOR PFT Routine SOB (shortness of breath) COPD with chronic bronchitis (HCC) 1 Occurrences starting 09/08/2022 until 10/08/2023 [facility] Work Phone: Comment on above: 1 Occurrences starti ng 09/08/2022 until 10/08/2023 End: 08-28-2024 US Carotid arteries - bilateral US CAROTID ARTERIES [facility] Vascular Lab Routine Syncope and collapse 1 Occurrences starting 08/28/2023 until 08/28/2024 [facility] Work Phone: Comment on above: 1 Occurrences starti ng 08/28/2023 until 08/28/2024 [facility] Immunizations Immunization Date Immunization Notes Care Provider Sarah diaz 06-24-2023 Influenza High-Dose Quadrivalent Dr. Usman Patel Work Phone: [facility] 06-24-2023 influenza virus vacc ine, unspecified formulation Usman Patel MD Work Phone: [facility] 11-14-2022 tetanus toxoid, redu silvia diphtheria toxoid, and acellular pertussis vaccine, adsorbed Usman Patel MD Work Phone: [facility] 05-17-2022 COVID-19 booster vaccine, age 12+ yr, bivalent (PFIZER-BIONTECH) Usman Patel MD Work Phone: [facility] 05-17-2022 influenza, high-dose , quadrivalent vaccine (FLUZONE HIGH DOSE QUADRIVALENT) Usman Patel MD Work Phone: [facility] 05-17-2022 influenza virus vacc ine, unspecified formulation Shayna Frias APRN.NURSING HOME SOCIAL WORKER Work Phone: [facility] 08-02-2021 COVID-19 vaccine, ag e 12+ yr (PFIZER-BIONTECH - BEYER TOP) Usman Patel MD Work Phone: [facility] Work Phone: 05-10-2021 influenza, high-dose , quadrivalent vaccine (FLUZONE HIGH DOSE QUADRIVALENT) Usman Patel MD Work Phone: [facility] 09-11-2020 COVID-19 vaccine, fu ll dose (MODERNA) Usman Patel MD Work Phone: [facility] 08-14-2020 COVID-19 vaccine, fu ll dose (MODERNA) Usman Patel MD Work Phone: [facility] 05-07-2020 influenza, high dose seasonal, preservative-free Usman Patel MD Work Phone: [facility] 05-07-2020 influenza, high-dose , quadrivalent vaccine (FLUZONE HIGH DOSE QUADRIVALENT) Usman Patel MD Work Phone: [facility] 05-21-2019 influenza, high dose seasonal, preservative-free Usman Patel MD Work Phone: [facility] 07-26-2018 influenza, high dose seasonal, preservative-free Usman Patel MD Work Phone: [facility] 05-12-2017 influenza, high dose seasonal, preservative-free Usman Patel MD Work Phone: [facility] 04-16-2017 influenza, high dose seasonal, preservative-free Usman Patel MD Work Phone: [facility] 03-17-2017 Influenza virus vaccine [facility] 03-17-2017 influenza, seasonal, injectable, preservative free Usman Patel MD Work Phone: [facility] 12-02-2016 pneumococcal polysaccharide vaccine, 23 valent Usman Patel MD Work Phone: [facility] 05-23-2016 influenza, high dose seasonal, preservative-free Usman Patel MD Work Phone: [facility] 11-30-2015 pneumococcal conjuga te vaccine, 13 valent Usman Patel MD Work Phone: [facility] 07-27-2013 pneumococcal polysaccharide vaccine, 23 valent Usman Patel MD Work Phone: [facility] 07-27-2013 pneumococcal vaccine , unspecified formulation [facility] 05-27-2013 influenza virus vacc ine, unspecified formulation Usman Patel MD Work Phone: [facility] 05-17-2013 Influenza virus vaccine [facility] 07-27-2009 novel influenza-H1N1 -09, preservative-free, injectable Usman Patel MD Work Phone: [facility] 05-08-2009 influenza virus vacc ine, whole virus Usman Patel MD Work Phone: [facility] 05-22-2008 influenza virus vacc ine, unspecified formulation Usman Patel MD Work Phone: [facility] 05-15-2007 influenza virus vacc ine, whole virus Usman Patel MD Work Phone: [facility] Payers Date Payer Category Payer Unknown [id number] 2024 Unknown [id number] 2024 Self-pay [id number] 2024 Unknown [id number] 2022 Medicare [id number] 2020 Medicare HUMANA MEDICARE HUMANA GOLD PLUS [id number] 2020-Present [phone] [place] [id number] [facility] [id number] 2020 Medicare [id number] [id number] 2001 Medicare MEDICARE PART A B [id number] Unknown [id number] Unknown [id number] 2.16.840.1.922645.3.579.2.462 Unknown [id number] 2.16.840.1.577297.3.579.2.462 Unknown [id number] 2.16.840.1.602810.3.579.2.462 Unknown [id number] 2.16840.1.712436.3.579.2.462 Unknown [id number] 2.840.1.734351.3.579.2.462 Unknown [id number] 2.840.1.147834.3.579.2.462 Unknown [id number] 2.840.1.478592.3.579.2.462 Unknown [id number] 2.840.1.350339.3.579.2.462 Unknown [id number] 2.840.1.319928.3.579.2.462 Unknown [id number] 2.840.1.607396.3.579.2.462 Unknown [id number] 2.840.1.906389.3.579.2.462 Unknown [id number] 2.840.1.370813.3.579.2.462 Unknown [id number] 2.840.1.738845.3.579.2.462 Unknown [id number] 2.840.1.879723.3.579.2.462 Unknown [id number] 2.840.1.118957.3.579.2.462 Unknown [id number] 2.840.1.963014.3.579.2.462 Unknown [id number] 2.16840.1.653352.3.579.2.462 Unknown [id number] 2.840.1.676444.3.579.2.462 Unknown [id number] 2.840.1.592596.3.579.2.462 Unknown [id number] 2.16.840.1.420119.3.579.2.462 Unknown [id number] 2.16.840.1.218864.3.579.2.462 Unknown [id number] 2.16.840.1.834027.3.579.2.462 Unknown [id number] 2.16.840.1.591372.3.579.2.462 Social History Date Type Detail Facility Start: 05-17-2022 End: 05-02-2025 Tobacco smoking status NHIS Ex-smoker [facility] Work Phone: Start: 1968 End: 05-09-2007 History of tobacco use Current smoker [facility] Work Phone: Start: 11-08-2021 End: 10-20-2023 Alcohol intake Current drinker of alcohol (finding) [facility] Start: 11-01-2016 History SDOH Alcohol Comment Very occasionally. [facility] Start: 11-01-2016 End: 05-17-2022 Tobacco Comment Father smoked in childhood home. Prior roomate smoked. [facility] Start: 1950 Sex Assigned At Not on file [facility] Start: 07-14-2021 End: 05-17-2022 Exposure to SARS-CoV-2 (event) Not sure [facility] Start: 1968 End: 05-09-2007 History of tobacco use Cigarette Smoker [facility] Start: 05-17-2022 End: 05-17-2023 Cigarettes smoked current (pack per day) - Reported 1.5 [facility] Work Phone: Start: 11-01-2016 End: 05-17-2022 Tobacco use and exposure Smokeless tobacco non-user [facility] Start: 02-24-2023 End: 06-23-2023 Tobacco smoking status SCIS Unknown if ever smoked [facility] Start: 08-30-2017 None [facility] Start: 02-24-2023 Alone [facility] Start: 02-24-2023 Non-smoker [facility] Start: 1950 Sex Assigned At Male [facility] Start: 11-14-2022 End: 05-17-2023 Tobacco use panel [facility] Work Phone: Adult Depression Screening Assessment 0 [facility] Work Phone: Start: 10-17-2024 End: 10-23-2024 Sex Male (finding) [facility] Goals Date Patient Goal Desired Activity /State Functional Status Date Assessment Result Facility 06-25-2023 Functional status Ambulates [facility] Work Phone: Mental Status Date Assessment [...] back to number below. Julieta Mckay MA [facility] 07-02-2024 Miscellaneous Notes Form signed and faxed back to number below. Julieta Mckay MA Type of letter/form/fax request - order from [facility] Form received from fax on 1 floor and placed on MD desk (Dr. Patel) for completion. Completed form needs to be faxed to [employer] at [phone]. Route to MT when form completed for processing documented in this encounter [facility] 07-02-2024 Telephone encounter Note Type of letter/form/fax request - order from [facility] Form received from fax on 1 floor and placed on MD desk (Dr. Patel) for completion. Completed form needs to be faxed to [place] at [phone]. Route to MT when form completed for processing [facility] 05-10-2024 Telephone encounter Note Faxed. Norma Rogers MA [facility] 05-10-2024 Miscellaneous Notes Faxed. Norma Rogers MA Type of form: 90 day order for Adult Day Care Services through [employer] Form received via fax When form is completed, Fax form to [phone] Form has been forwarded to Physician Desk: Dr. Jorge Mckay MA documented in this encounter [facility] 05-09-2024 Telephone encounter Note Type of form: 90 day order for Adult Day Care Services through [employer] Form received via fax When form is completed, Fax form to [phone] Form has been forwarded to Physician Desk: Dr. Jorge Mckay MA [facility] 03-05-2024 Telephone encounter Note OK to refill as ordered Usman Patel MD [facility] 03-05-2024 Miscellaneous Notes OK to refill as ordered Usman Patel MD Images from the original note were not included. See prescription sig note from Pharmacy regarding medication use. documented in this encounter [facility] 03-05-2024 Telephone encounter Note Images from the original note were not included. See prescription sig note from Pharmacy regarding medication use. [facility] 03-04-2024 Telephone encounter Note The following approved [...] a day. Authorizing Provider: USMAN PATEL MA [facility] 03-04-2024 Miscellaneous Notes The following approved medication [...] 2024 2:19 PM documented in this encounter [facility] 03-04-2024 Telephone encounter Note OK to refill as ordered Usman Patel MD [facility] 03-04-2024 Telephone encounter Note Prescription Refill Information [...] [facility] March 04, 2024 2:19 PM [facility] 02-06-2024 Telephone encounter Note Form faxed. Norma Rogers MA [facility] 02-06-2024 Miscellaneous Notes Form faxed. Norma Rogers MA Type of letter/form/fax request - 90 day order for adult daycare Form received from fax on 1 floor and placed on MD desk (Dr. Patel) for completion. Completed form needs to be faxed to [facility] at [phone].. Route to MT when form completed for processing documented in this encounter [facility] 02-06-2024 Telephone encounter Note Type of letter/form/fax request - day order for adult daycare Form received from fax on 1 floor and placed on MD desk (Dr. Patel) for completion. Completed form needs to be faxed to [facility] at [phone].. Route to MT when form completed for processing [facility] 10-20-2023 History of Presen t illness Narrative [...] obstructive pulmonary disease based on initial evaluation ([facility]) 2017 Previous Surgical History PAST SURGICAL HISTORY [...] Usman Patel MD documented in this encounter [facility] 10-20-2023 Note HNO ID: [id number] Author: USMAN PATEL MD Service: ? Author [...] Vaccine(2 - Td (more content not included)... [facility] 10-19-2023 Miscellaneous Notes Form signed and faxed back to information below. Julieta Mckay MA Type of form: 90 day order from [employer] Form received via fax When form is completed, Fax form to [phone] Form has been forwarded to Physician Desk: Dr. Jorge Mckay MA documented in this encounter [facility] 10-05-2023 Note HNO ID: [id number] Author: JAGRUTI TSANG PT Service: ? Author Type: Physical Therapist Type: Progress Notes Filed: 10/05/2023 07:53 Note Text: Summary: PT DC 10/05/2023 [facility]ICAL [...] scheduled additional follow-up appointments. Jagruti Tsang, PT [facility] 08-28-2023 Note HNO ID: [id number] Author: RACHELLE PEARL, RN Service: ? Author Type: Registered Nurse Type: Progress Notes Filed: 08/28/2023 11:43 Note Text: EVENT MONITOR DISPOSABLE PATCH INSTRUCTIONS Patient Name: J Luis Madera [facility] Number: [id number] Skin prepped and cleansed with alcohol Patch secured to prepped area Monitor Activated Serial #: [id number] Patient Instructed: Prescribed order timeframe Bathing guidelines Usage of event button and diary documentation Return of monitor at the end of prescribed order Call with problems [phone] or [phone] ext. [phone] Patient expresses a good understanding of instructions Rachelle Pearl RN [facility] 08-28-2023 History of Presen t illness Narrative EVENT MONITOR DISPOSABLE PATCH INSTRUCTIONS Patient Name: J Luis [facility] Number: [id number] Skin prepped and cleansed with alcohol Patch secured to prepped area Monitor Activated Serial #: [id number] Patient Instructed: Prescribed order timeframe Bathing guidelines Usage of event button and diary documentation Return of monitor at the end of prescribed order Call with problems [phone] or [phone] ext. [phone] Patient expresses a good understanding of instructions Rachelle Pearl RN Images from the original note were not included. [facility] SE[facility] REGIONAL CARDIOLOGY Cardiology ([facility]) [address] [facility] [address] OUTPATIENT VISIT DATE 08/28/2023 PRIMARY CARE PHYSICIAN: Usman Patel [address] [place] [address] REFERRING PHYSICIAN: Temitope Lara [address] [facility] [address] CHIEF COMPLAINT: Dizziness HISTORY OF PRESENT ILLNESS: [...] (HCC) 06/27/2014 Peroneal DVT (deep venous thrombosis) ([facility]) 09/05/2013 Right spastic hemiparesis ([facility]) 06/27/2014 Screening for malignant neoplasm of colon 02/01/2016 Seasonal allergic rhinitis Spring through . Seizures ([facility]) Small bowel obstruction ([facility]) Suspected chronic obstructive pulmonary disease based on initial evaluation ([facility]) 2017 PAST SURGICAL HISTORY Procedure Laterality Date [...] Aiden Mccrary MD documented in this encounter [facility] 08-28-2023 Instructions Aiden Mccrary MD - 08/28/2023 10:48 AM EST We are ordering an Echocardiogram, Carotid ultrasound and a heart monitor documented in this encounter [facility] 08-28-2023 Note HNO ID: [id number] Author: AIDEN MCCRARY MD Service: ? Author Type: Physician Type: Progress Notes Filed: 08/28/2023 11:43 Note Text: [facility] CARDIOLOGY Cardiology ([facility]) [address] [facility] [address] OUTPATIENT VISIT DATE 08/28/2023 PRIMARY CARE PHYSICIAN: Usman Patel [address] [place] [address] REFERRING PHYSICIAN: Temitope Lara [address] [facility] [address] CHIEF COMPLAINT: Dizziness HISTORY OF PRESENT ILLNESS: [...] (HCC) 06/27/2014 Peroneal DVT (deep venous thrombosis) ([facility]) 09/05/2013 Right spastic hemiparesis ([facility]) 06/27/2014 Screening for malignant neoplasm of colon 02/01/2016 Seasonal allergic rhinitis Spring through . Seizures ([facility]) Small bowel obstruction (HCC) Suspected chronic obstructive pulmonary disease based on initial evaluation ([facility]) 2017 PAST SURGICAL HISTORY Procedure Laterality Date [...] artery are norm (more content not included)... [facility] 08-15-2023 Note HNO ID: [id number] Author: MARAH THOMAS RT(R) Service: ? Author [...] PATIENT PRESENTS WITH AN IMPLANTABLE OR ATTACHED ARGON TESTER: No RADIOLOGY DEPARTMENT: MR; Exam(s) Completed: Spine: Cervical spine PERIPHERAL IV DATA: Not applicable SIGNED BY: RT Joelle(R) August 15, 2023 1:58 PM [facility] 08-08-2023 Note HNO ID: [id number] Author: MARY KAY BAIRSE, PT, DPT Service: ? Author Type: Physical [...] he is requesting to transfer to the [facility] which is closer to home. He demonstrates [...] Patient to be seen for Therapeutic exercise (26058), Neuromuscular re-education (49515), Therapeutic activities (24373), Self-usp management (41767), Gait Training (98211) PLAN FOR NEXT VISIT: Gait and balance training. Functional strengthening. Transfer of Care Due To: Closer to Home Patient transferring care to: [place] SUBJECTIVE: J Luis returns for first follow up since his eval; he is limited in ability to attend PT at this clinic due to distance from home and reliance on others for transportation. He would like to transfer to the [place] clinic. He denies falls since his last [...] and purpose f (more content not included)... [facility] 07-19-2023 Note HNO ID: [id number] Author: Temitope Lara PA-C Service: ? Author Type: Physician Machine Turner Type: Progress Notes Filed: 07/19/2023 4:16 PM Note Text: Neurology Outpatient Clinic Date: July 19, 2023 Patient Name: J Luis Madera Referring physician: Usman Patel [address] [phone] Consult requested for dizziness by Dr. Patel. Recommendations will be communicated via shared medical record or US mail. Primary physician: Usman Patel [address] [phone] Reason for Evaluation: Dizziness and seizures Subjective [...] He is here for established care with [facility] epilepsy department again. No seizure [...] niece called EMS and he was transported [facility]. Reported that his dizziness gets worse with standing but denies any presyncope or lightheaded sensation, described more of a room spinning dizziness. Improves when he sits down or lays down, has difficulty stating how often it occurs but notes that he falls from this dizziness once or twice a month. MRI obtained at [facility] showed no acute infarct and stable chronic changes. Patient does not remember much about his admission, states that no scans were obtained and has difficulty remembering. Notes that he has passed out in the past secondary to this dizziness and he estimates the last occurrence was 6 to 12 months ago. 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 [facility] 07-14-2023 Note HNO ID: [id number] Author: Elsa Joaquin, PT Service: ? Author [...] Planned: 8 Planned Treatment Interventions: Therapeutic exercise (49515), Neuromuscular re-education (64630), Therapeutic activities (41092) PLAN FOR NEXT VISIT: neuro training, LE flexibility, balance ex, and neuro tx Patient demonstrates good understanding of plan of care and treatment. The above goals and plan of care were discussed and agreed upon by patient/family. SUBJECTIVE: pt reports he is not sure why he was sent to come here vs [place], due to the long drive, here and [...] Flexibility Flexibility: Hip (more content not included)... [facility] 06-27-2023 History of Presen t illness Narrative Noted; will discuss at his follow up appt Usman Patel MD TRANSITION CARE MANAGEMENT (TCM) INITIAL CONTACT Supply Manager Outreach Provider Action/FYI: Patient calls and states [...] might be hidden SUMMARY: -Pt discharged from [facility] on 06/25/23. -Admitted for: dizziness Do you [...] hospitalization: Care Everywhere documented in this encounter [facility] 06-26-2023 Miscellaneous Notes I agree with the [...] weak and he needs to go to fci, she can not care for him, she can not get him down the steps to first floor. Advised to call squad and have him go to ER for evaluation, would need 3 day stay at the hospital and then get [facility] placement. documented in this encounter [facility] 06-25-2023 Discharge summary Note Date/Time June 25, 2023 12:25pm [facility] Medical Records Department [address] [place] [address] Discharge Summary 06/25/23 1223 MR#: [id number] Acct: [id number] Name: J LUIS MADERA Rep #:[id number] : 1950 73 From: Kike Putnam PCP: Dr. Usman Patel MD Status:ADARSH CLARK Location: MS3 EE770-7 Providers Date of Admission: 06/23/23 Date of [...] Self Care Charges/Coding Visit Charges Inpatient E&M: 92732 Disch Hosp >30min 06/25/23 1228 <Electronically signed by Kike Malave MD> Cosigner Signature (if applicable): CC: Dr. Usman Patel MD; Dr. Kike Malave MD~ Signed [facility] Work Phone: 1(774) 889-922012-10-2023 Discharge summary Author Kike Malave [facility] June 25, 2023 12:23pm Note Date/Time June 25, 2023 11:53am [facility] Medical Records Department [address] [place] [address] Instructions for Home/Discharge Instructions 06/25/23 1000 MR#: [id number] Acct: [id number] Name: J LUIS MADERA Rep #:[id number] : 1950 73 From: Kike Putnam PCP: [...] MD; Dr. Raoul Oliver MD ~ Signed [facility] Work Phone: 1(543) 134-739112-09-2023 Progress note Author Kike Malave [facility] June 24, 2023 12:00pm Note Date/Time June 24, 2023 7 :37am [facility] Medical Records Department [address] [place] [address] Progress Note - Hospitalist 06/24/23 0735 MR#: [id number] Acct: [id number] Name: J LUIS MADERA Franco Rep #:[id number] : 1950 73 From: Kike Putnam PCP: Dr. Usman Patel MD Status:AD M [facility] Location: UT3 HF446-2 Reason for Visit Reason for Visit: Diagnoses [...] (Auto) 71.2 H, Lymph % (Auto)16.1 L, [place] % (Auto) 8.6, Eos % (Auto) 2.3, [...] Clarity Clear, Urine pH 6.0, Ur Specific [employer] 1.015, Urine Protein 15 H, Urine Glucose [...] % (Auto) 57.0, Lymph % (Auto) 24.4, [place] % (Auto) 11.4 H, Eos % (Auto) [...] history of cerebralpalsy: [facility]. Etiology unclear but patient is [...] DVT: Heparin Charges/Coding Visit Charges Inpatient E&M: 97557 Subs Hosp L2 06/24/23 1200 <Electronically signed by Kike Malave MD> Cosigner Signature (if applicable): CC: ~ Signed [facility] Work Phone: 1(204) 488-745912-09-2023 Discharge summary Author Ethan Martinez [facility] June 23, 2023 11:16pm Note Date/Time June 23, 2023 2 :12pm [facility] Medical Records Department [address] [place] [address] Emergency Department Summary 06/23/23 MR#: [id number] Acct: [id number] Name: J LUIS MADERA Rep #:[id number] : 1950 73 From: Ethan Martinez DO PCP: Dr. Usman Patel MD Status:AD M [facility] Location: UT3 DB007-8 HPI History of Present Illness Chief Complaint: [...] palsy but normally ambulates on his own. [facility] Medical History (Updated 06/23/23 @ 16:36 [...] 71.2 H Lymph % (Auto) 16.1 L [place] % (Auto) 8.6 Eos % (Auto) 2.3 [...] Clarity Clear Urine pH 6.0 Ur Specific [employer] 1.015 Urine Protein 15 H Urine Glucose [...] your Primary Care Provider. Call [facility] ([phone]) or report to the closest Emergency Room. Call 911 if necessary. 06/23/23 1496 <Electronically signed by Ethan Martinez DO> Cosigner Signature (if applicable): CC: Dr. Usman Patel MD ~ Signed [facility] Work Phone: 1(389) 339-474012-08-2023 History and physical note Author Raoul Oliver [facility] June 23, 2023 6:57pm Note Date/Time June 23, 2023 5 :22pm [facility] Medical Records Department [address] [place] [address] H&P Exam - Hospitalist 06/23/23 1715 MR#: [id number] Acct: [id number] Name: J LUIS MADERA Rep #:[id number] : 1950 73 From: Raoul ly MD PCP: Dr. Usman Patel MD Status:AD M [facility] Location: [facility] XL882-8 HPI - General General Date of Admission: [...] any change in his baseline neurological functioning. [facility] Medical History (Updated 06/23/23 @ 16:36 [...] (Auto) 71.2 H, Lymph % (Auto)16.1 L, Appling % (Auto) 8.6, Eos % (Auto) 2.3, [...] Clarity Clear, Urine pH 6.0, Ur Specific [employer] 1.015, Urine Protein 15 H, Urine Glucose [...] with colleagues Charges/Coding Visit Charges Inpatient E&M: 34877 Init Hosp L3 06/23/231856 <Electronically signed by Raoul Oliver MD> Cosigner Signature (if applicable): CC: Dr. Usman Patel MD; Dr. Raoul Oliver MD~ Signed [facility] Work Phone: [phone]) 911-117711-16-2023 Miscellaneous Notes* Telephone Encounter - Renee Quintanilla [...] you. Tyra Frazier LPN. [facility] Instructions* Patient Instructions* Shayna Frias APRN.CNP - 05/17/2023 2:16 PM EDT Get fasting labs done, no food 10 hours prior, water and black coffee are okay Get flu vaccine next week when you are feeling better Continue medications as prescribed Follow up in 6 months or sooner as needed documented in this encounterMarietta [facility]11-01-2023 History of Present illness Narrative* Shayna Frias [...] like [facility] [...] palsy (HCC) 06/27/2014 COPD with chronic bronchitis ([facility]) 12/02/2016 Debility Diarrhea Hypoxia 2018 Infantile cerebral palsy, unspecified Other convulsions Partial small bowel obstruction (HCC) 06/27/2014 Peroneal DVT (deep venous thrombosis) ([facility]) 09/05/2013 Right spastic hemiparesis (HCC) 06/27/2014 Screening [...] discussed and patient voices understanding. Shayna Frias APRN.NURSING HOME SOCIAL WORKER documented in this encounterMarietta [facility] Clinic08-14-2023 Miscellaneous Notes* Telephone Encounter - Renee Quintanilla [...] reports that he fell on Monday02/24/23 at [place] when he was getting up to go the restroom. Notes he made a turn to quickly and lost his balance. States that his right foot buckled on him, causing him to go sideways causing him to fall on his bad foot. He broke a couple of bones in his ankle of his already bad food. Was seen at [facility] ED, this is where they gave him [...] AM EDT Patient fell 02/24 at the [facility], he hurt his right foot. They advised him to let Dr. Patel know. Patient also has some questions regarding the brace they gave him. Please review and advise. Kimmy Webb documented in this encounterMarietta [facility]05-11-2023 History of Present illness Narrative* Terri Tomas, [...] 24, 2022 4:07 PM documented in this encounterMarietta [facility]05-02-2023 History of Present illness Narrative* Brenda Yusuf [...] 15, 2022 2:02 PM documented in this encounterM[facility]03-06-2023 Miscellaneous Notes* Telephone Encounter - Jolly Laguerre [...] pulmonology. Shayna Frias APRN.GERA documented in this encounterMarietta [facility] Clinic02-28-2023 Procedure note* CHELSY Tovar - 09/13/2022 1:23 [...] 2022 TIME: 1:23 PM documented in this encounterMarietta [facility] Clinic02-28-2023 History of Present illness Narrative* CHELSY Tovar - 09/13/2022 1:21 PM EST PULM FUNCTION SMARTBLOCK: Provider: Shayna Frias APRN.NURSING HOME SOCIAL WORKER Assisting Tech: CHELSY Tovar Spirometry w/BD: 1 LV - Box: 1 Exhaled Nitric Oxide: 1 documented in this encounterMarietta [facility] Clinic02-23-2023 History of Present illness Narrative* Shayna Frias APRN.NURSING HOME SOCIAL WORKER - 09/08/2022 2:20 PM EST This is [...] APRN.CNP This note was partially generated using [employer] voice recognition system. Note was reviewed for accuracy. There may be minor misspellings or grammar miscues with [employer] voice recognition. documented in this encounterMarietta [facility] Clinic02-23-2023 Instructions* Patient Instructions* Shayna Frias APRN.CNP - 09/08/2022 2:15 PM EST Schedule Chest CT scan Complete pulmonary tests Continue to take all medication as prescribed. Follow up pending test results or sooner as needed. documented in this encounterMarietta [facility] Clinic02-22-2023 Miscellaneous Notes* Telephone Encounter - Salima Teixeira [...] insurance info is in. documented in this encounterMarietta [facility] Clinic02-09-2023 Miscellaneous Notes* Telephone Encounter - Jolly Laguerre [...] you. Shayna Frias APRN.GERA documented in this encounterMarietta [facility] Clinic02-08-2023 Instructions* Patient Instructions* Shayna Frias APRN.CNP - [...] to prevent muscle stiffness. documented in this encounterMarietta [facility] Clinic02-08-2023 History of Present illness Narrative* Shayna Frias [...] or wheezing. - May continue to use [id number] cold and cough medications as needed. - [...] APRN.GERA This note was partially generated using [employer] voice recognition system. Note was reviewed for accuracy. There may be minor misspellings or grammar miscues with [employer] voice recognition. documented in this encounterMarietta [facility] Clinic12-27-2022 Miscellaneous Notes* Telephone Encounter - Norma Rogers Ma - 07/12/2022 3:02 PM EST faxed * Telephone Encounter - Norma Rogers Ma - 07/12/2022 12:36 PM EST Patient has been identified by name and date of : Yes, Provider Jorge Date 07/12/22 Time 12:36 pm Type of form: plan of care Form received via: [employer] [place] When form is completed, fax form to fax number provided. Form has been forwarded to: Provider's desk. Provider name: Jorge Rogers Ma documented in this encounterMarietta [facility] Clinic11-25-2022 Miscellaneous Notes* Telephone Encounter - Roger Pfeiffer RN - 06/10/2022 3:04 PM EST See 05-24-22 encounter. Patient returned call and given provider's message. 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 Reports there was a week he missed taking the levothyroxine 88 mcg, because he had to wait until his money came. Patient agreeable to return tolab in 2 mths for recheck. documented in this encounterMarietta [facility] Clinic11-10-2022 Miscellaneous Notes* Telephone Encounter - Norma Rogers Ma - 05/26/2022 9:17 AM EST Chooos message sent to pt, asking them to [...] Provider: FRITZ GRANADOS APRN.CNP documented in this encounterMarietta [facility] Clinic11-01-2022 History of Present illness Narrative* Usman Patel MD - 05/17/2022 3:00 PM EDT Chief Complaint Patient presents with: 6 Month Exam Immunizations: Flu vaccination HPI J Luis Madera is a 72 year old male who presents here today for 6 month follow up. Goes to [facility] 3 days/week. He states that the nurse at [facility] is working with him on trying to [...] palsy (HCC) 06/27/2014 COPD with chronic bronchitis ([facility]) 12/02/2016 Debility Diarrhea Hypoxia 2018 Infantile cerebral palsy, unspecified Other convulsions Partial small bowel obstruction (HCC) 06/27/2014 Peroneal DVT (deep venous thrombosis) ([facility]) 09/05/2013 Right spastic hemiparesis (HCC) 06/27/2014 Screening [...] Past Histories independently gathered by the clinical medical support specialist and the remaining scribed note accurately describes [...] PM. Norma Rogers Ma documented in this encounterMarietta [facility] Clinic05-25-2022 History of Present illness Narrative* Lora Nunes RN - 12/08/2021 1:51 PM EDT [employer] Enrollment Provider Action/FYI: MyChart message introducing [employer] Home Monitoring program sent to pt. Will outreach pt x1-2 days. Patient referred by: [facility] Berenice Contact made with patient: No - Unable to leave message: (Keep encounter open and attempt 2nd outreach in two business days from today). END OUTREACH Lora Nunes RN December 08, 2021 1:53 PM documented in this encounterMarietta [facility] Clinic05-10-2022 History of Present illness Narrative* RT Nimisha(Franco) [...] 23, 2021 3:23 PM documented in this encounterMarietta [facility] Clinic04-29-2022 Miscellaneous Notes* Telephone Encounter - Norma Rogers Ma - 11/12/2021 2:03 PM EDT Pt notified of results via [employer]. Norma Rogers Ma * Telephone Encounter - Usman Patel MD - 11/12/2021 2:01 PM EDT Please notify patient that his blood test results look OK; stay on the same medications and follow up in 6 months as planned Usman Patel MD documented in this encounterMarietta [facility] Clinic01-28-2022 History of Present illness Narrative* Sylvia Gates [...] 13, 2021 4:21 PM documented in this encounterMarietta [facility] Clinic12-12-2014 History of Past illness Narrative* Problem Noted Date Resolved Date Partial small bowel obstruction 06/27/2014 12/02/2016 Peroneal DVT (deep venous thrombosis) 09/05/2013 06/27/2014 ASA CLASS III 05/10/2002 10/30/2018 documented as of this encounter (statuses as of 11/12/2021) [facility] of Past illness Narrative* Problem Noted Date Resolved Date Partial small bowel obstruction 06/27/2014 12/02/2016 Peroneal DVT (deep venous thrombosis) 09/05/2013 06/27/2014 ASA CLASS III 05/10/2002 10/30/2018 documented as of this encounter (statuses as of 11/24/2021) [facility] of Past illness Narrative* Problem Noted Date Resolved Date Partial small bowel obstruction 06/27/2014 12/02/2016 Peroneal DVT (deep venous thrombosis) 09/05/2013 06/27/2014 ASA CLASS III 05/10/2002 10/30/2018 documented as of this encounter (statuses as of 12/08/2021) [facility] of Past illness Narrative* Problem Noted Date Resolved Date Partial small bowel obstruction 06/27/2014 12/02/2016 Peroneal DVT (deep venous thrombosis) 09/05/2013 06/27/2014 ASA CLASS III 05/10/2002 10/30/2018 documented as of this encounter (statuses as of 05/17/2022) [facility] of Past illness Narrative* Problem Noted Date Resolved Date Partial small bowel obstruction 06/27/2014 12/02/2016 Peroneal DVT (deep venous thrombosis) 09/05/2013 06/27/2014 ASA CLASS III 05/10/2002 10/30/2018 documented as of this encounter (statuses as of 05/27/2022) [facility] of Past illness Narrative* Problem Noted Date Resolved Date Partial small bowel obstruction 06/27/2014 12/02/2016 Peroneal DVT (deep venous thrombosis) 09/05/2013 06/27/2014 ASA CLASS III 05/10/2002 10/30/2018 documented as of this encounter (statuses as of 07/18/2022) [facility] of [facility] illness Narrative* Problem Noted Date Resolved Date Partial small bowel obstruction 06/27/2014 12/02/2016 Peroneal DVT (deep venous thrombosis) 09/05/2013 06/27/2014 ASA CLASS III 05/10/2002 10/30/2018 documented as of this encounter (statuses as of 08/25/2022) [facility] Narrative* Problem Noted Date Resolved Date Partial small bowel obstruction 06/27/2014 12/02/2016 Peroneal DVT (deep venous thrombosis) 09/05/2013 06/27/2014 ASA CLASS III 05/10/2002 10/30/2018 documented as of this encounter (statuses as of 08/25/2022) [facility] Narrative* Problem Noted Date Resolved Date Partial small bowel obstruction 06/27/2014 12/02/2016 Peroneal DVT (deep venous thrombosis) 09/05/2013 06/27/2014 ASA CLASS III 05/10/2002 10/30/2018 documented as of this encounter (statuses as of 09/08/2022) [facility] Narrative* Problem Noted Date Resolved Date Partial small bowel obstruction 06/27/2014 12/02/2016 Peroneal DVT (deep venous thrombosis) 09/05/2013 06/27/2014 ASA CLASS III 05/10/2002 10/30/2018 documented as of this encounter (statuses as of 09/08/2022) [facility] Narrative* Problem Noted Date Resolved Date Partial small bowel obstruction 06/27/2014 12/02/2016 Peroneal DVT (deep venous thrombosis) 09/05/2013 06/27/2014 ASA CLASS III 05/10/2002 10/30/2018 documented as of this encounter (statuses as of 09/13/2022) [facility] Narrative* Problem Noted Date Resolved Date Partial small bowel obstruction 06/27/2014 12/02/2016 Peroneal DVT (deep venous thrombosis) 09/05/2013 06/27/2014 ASA CLASS III 05/10/2002 10/30/2018 documented as of this encounter (statuses as of 09/19/2022) [facility] Narrative* Problem Noted Date Resolved Date Partial small bowel obstruction 06/27/2014 12/02/2016 Peroneal DVT (deep venous thrombosis) 09/05/2013 06/27/2014 ASA CLASS III 05/10/2002 10/30/2018 documented as of this encounter (statuses as of 11/10/2022) [facility] Narrative* Problem Noted Date Diagnosed Date Resolved Date Partial small bowel obstruction 06/27/2014 12/02/2016 Peroneal DVT (deep venous thrombosis) 09/05/2013 06/27/2014 ASA CLASS III 05/10/2002 10/30/2018 documented as of this encounter (statuses as of 02/28/2023) [facility] Narrative* Problem Noted Date Diagnosed Date Resolved Date Partial small bowel obstruction 06/27/2014 12/02/2016 Peroneal DVT (deep venous thrombosis) 09/05/2013 06/27/2014 ASA CLASS III 05/10/2002 10/30/2018 documented as of this encounter (statuses as of 05/18/2023) [facility] Narrative* Problem Noted Date Diagnosed Date Resolved Date Partial small bowel obstruction 06/27/2014 12/02/2016 Peroneal DVT (deep venous thrombosis) 09/05/2013 06/27/2014 ASA CLASS III 05/10/2002 10/30/2018 documented as of this encounter (statuses as of 05/20/2023) [facility] Narrative* Problem Noted Date Diagnosed Date Resolved Date Partial small bowel obstruction 06/27/2014 12/02/2016 Peroneal DVT (deep venous thrombosis) 09/05/2013 06/27/2014 ASA CLASS III 05/10/2002 10/30/2018 documented as of this encounter (statuses as of 06/02/2023) [facility] Narrative* Problem Noted Date Diagnosed Date Resolved Date Partial small bowel obstruction 06/27/2014 12/02/2016 Peroneal DVT (deep venous thrombosis) 09/05/2013 06/27/2014 ASA CLASS III 05/10/2002 10/30/2018 documented as of this encounter (statuses as of 06/27/2023) [facility] Narrative* Problem Noted Date Diagnosed Date Resolved Date Partial small bowel obstruction 06/27/2014 12/02/2016 Peroneal DVT (deep venous thrombosis) 09/05/2013 06/27/2014 ASA CLASS III 05/10/2002 10/30/2018 documented as of this encounter (statuses as of 06/28/2023) [facility] Narrative* Problem Noted Date Diagnosed Date Resolved Date Partial small bowel obstruction 06/27/2014 12/02/2016 Peroneal DVT (deep venous thrombosis) 09/05/2013 06/27/2014 ASA CLASS III 05/10/2002 10/30/2018 documented as of this encounter (statuses as of 08/28/2023) [facility] Narrative* Problem Noted Date Diagnosed Date Resolved Date Partial small bowel obstruction 06/27/2014 12/02/2016 Peroneal DVT (deep venous thrombosis) 09/05/2013 06/27/2014 ASA CLASS III 05/10/2002 10/30/2018 documented as of this encounter (statuses as of 10/20/2023) [facility] Narrative* Problem Noted Date Diagnosed Date Resolved Date Partial small bowel obstruction 06/27/2014 12/02/2016 Peroneal DVT (deep venous thrombosis) 09/05/2013 06/27/2014 ASA CLASS III 05/10/2002 10/30/2018 documented as of this encounter (statuses as of 10/20/2023) [facility] Diagnosis Lung nodules Other nonspecific abnormal finding of lung field [facility] this encounter [facility]* Diagnosis Hypothyroidism, acquired- Primary Unspecified hypothyroidism [...] unspecified type (HCC) documented [facility] this encounter [facility]* Diagnosis Hypothyroidism, acquired Unspecified hypothyroidism [facility] Sinobronchitis- Primary Unspecified sinusitis (chronic) [facility] Diagnosis Cough, unspecified type- Primary SOB (shortness of breath) Shortness of breath COPD with chronic bronchitis (HCC) Obstructive chronic bronchitis without exacerbation [facility] encounter [facility]* Diagnosis SOB (shortness of breath) Shortness of breath COPD with chronic bronchitis (HCC) Obstructive chronic bronchitis without exacerbation documented in this encounter [facility] note* Diagnosis SOB (shortness of breath) Shortness of breath COPD with chronic bronchitis (HCC) Obstructive chronic bronchitis without exacerbation documented in this encounter [facility] noteNo assessment information availableWSumma Health [facility] Work Phone: Evaluation note* Diagnosis [...] and unspecified hyperlipidemia documented in this encounter [facility] note* Diagnosis Lung nodules Other nonspecific abnormal finding of lung field documented in this encounter [facility] note* Diagnosis Screening for AAA (abdominal aortic aneurysm) Screening for other and unspecified cardiovascular conditions documented in this encounter [facility] note* Diagnosis Hypothyroidism, acquired Unspecified hypothyroidism documented in this encounter [facility] note* Diagnosis Onset Date Resolution Status Dizziness acute Generalized weakness acute Hx of cerebral palsy acute [facility] Work Phone: Evaluation note* Diagnosis Syncope and collapse Vasovagal syncope Syncope and collapse Palpitations documented in this encounter [facility] note* Diagnosis Hypothyroidism, acquired- Primary Unspecified hypothyroidism Balance problem Other symptoms involving nervous and musculoskeletal systems Dizziness Dizziness and giddiness 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) Obstructive chronic bronchitis without exacerbation Cerebral palsy, unspecified type (HCC) documented in this encounter [facility] note* Diagnosis Hypothyroidism, acquired Unspecified hypothyroidism documented in this encounter [facility] note* Diagnosis Suspected COVID-19 virus infection documented in this encounter [facility] for referral (narrative)* Diagnostic Procedure Only (Routine) - Closed Specialty Diagnoses / Procedures Referred By Dov t Referred To Contact CT IMAGING Diagnoses Lung nodules Procedures CT CHEST WO IVCON DIAGNOSTIC COMPUTED TOMOGRAPHY THORAX W/O Usman Crandall MD [address] [place] [address] Ct Imaging Referral ID Status Reason Start Date Expiration Date Visits Re quested Visits Authorized [id number] Closed 11/23/2021 12/23/2021 1 1 [facility] for referral (narrative)* Outpatient Procedure (Routine) - Authorized Specialty Diagnoses / Procedures Referred By Contac t Referred To Contact [facility] Diagnoses SOB (shortness of breath) COPD with chronic bronchitis (HCC) Procedures LUNG VOLUMES Shayna Frias APRN.CNP [address] [place] [address] [address] Referral ID Status Reason Start Date Expiration Date Visits Requested Visits Authorized [id number] Authorized Auto-Generat ed Referral 09/08/2022 07/16/2023 1 1 * Outpatient Procedure (Routine) - Authorized Specialty Diagnoses / Procedures Referred By Contac t Referred To [facility] Diagnoses SOB (shortness of breath) COPD with chronic bronchitis (HCC) Procedures NITRIC OXIDE, EXHALED NITRIC OXIDE GAS DETERMINATION Shayna Frias APRN.NURSING HOME SOCIAL WORKER [address] [place] [address] [address] Referral ID Status Reason Start Date Expiration Date Visits Requested Visits Authorized [id number] Authorized Auto-Generat ed Referral 09/08/2022 10/08/2023 1 1 * Outpatient Procedure (Routine) - Authorized Specialty Diagnoses / Procedures Referred By Contac t Referred To [facility] Diagnoses SOB (shortness of breath) COPD with chronic bronchitis (HCC) Procedures SPIROMETRY - BASELINE AND POST DILATOR BRNCDILAT RSPSE SPMTRY PRE&POST-BRNCDILAT ADMN Shayna Frias APRN.CNP [address] [place] [address] [address] Referral ID Status Reason Start Date Expiration Date Visits Requested Visits Authorized [id number] Authorized Auto-Generat ed Referral 09/08/2022 10/08/2023 1 1 [facility] for referral (narrative)* Diagnostic Procedure Only (Routine) - Closed Specialty Diagnoses / Procedures Referred By Contac t Referred To Contact US IMAGING Diagnoses Screening for AAA (abdominal aortic aneurysm) Procedures US SCREENING FOR AAA (2017) US ABDOMINAL AORTA REAL TIME SCREEN STUDY AAA Usman Patel MD [address] [place] [address] [place] [address] Referral ID Status Reason Start Date Expiration Date V isits Requested Visits Authorized [id number] Closed Auto-Generate d Referral 11/14/2022 12/14/2023 1 1 [facility] for referral (narrative)* Outpatient Procedure (Routine) - Authorized Specialty Diagnoses / Procedures Referred By Contac t Referred To Contact [facility] Diagnoses Syncope and collapse Procedures US CAROTID ARTERIES LISHA VAS LAB DUPLEX SCAN EXTRACRANIAL ART COMPL BI STUDY Aiden Mccrary MD [address] [place] [id number] [facility] [place] [address] [place] [id number] Referral ID Status Reason Start Date Expiration Date Visits Requested Visits Authorized [id number] Authorized Auto-Generat ed Referral 08/28/2023 08/27/2024 1 1 * Outpatient Procedure (Routine) - Authorized Specialty Diagnoses / Procedures Referred By Contac t Referred To [facility] Diagnoses Syncope and collapse Palpitations Procedures ECHO ECHO TTHRC R-T 2D W/WOM-MODE COMPL SPEC&COLR D Aiden Mccrary MD [address] [place] [address] [facility] [address] [address] Referral ID Status Reason Start Date Expiration Date Visits Requested Visits Authorized [id number] Authorized Auto-Generat ed Referral 08/28/2023 10/26/2023 2 1 L [facility] for referral (narrative)No reason for referral information availableWSumma Health [facility] Work Phone: Advance Directives No Advanced Directives Records FoundDocuments on File Type Date Recorded Patient Clinical Care Manager Expl anation Advance Directive(s) Advance Directive(s) 02/01/2016 9:58 AM Advance Directive(s) 12/25/2015 9:25 AM Documents on File Type Date Recorded Patient Clinical Care Manager Expl anation Advance Directive(s) Advance Directive(s) 02/01/2016 9:58 AM Advance Directive(s) 12/25/2015 9:25 AM Advance Directive Response Recorded Date/ Time Advance Directives No August 02, 2013 10:12pm Living Will No February 24 7:04pm Power of Ag Equipment Field Service Technician No February 24 023 7:04pm Advance Directive Response Recorded Date/ Time Advance Directives No August 02, 2013 9:12pm Living Will No June 23 8:10pm Power of Ag Equipment Field Service Technician No June 23, 2023 8:10pm Advance Directive [...] Chief Complaint Admit Date LONG-TERM LAB WORK October 04, 2024 5 :00am LONG-TERM LAB WORK October 15, 2024 5: 00am Monthly Exam October 15, 2024 5:11 pm LONG-TERM LAB WORK November 19, 2024 5:00 am LABWORK November 26, 2024 5:00a m LONG-TERM LAB WORK December 17, 2024 5:0 0am MONTHLY EXAM December 24, 2024 3:15 pm LONG-TERM LAB WORK January 14, 2025 5:0 0am Chief Complaint Admit Date LONG-TERM LAB WORK October 15, 2024 5: 00am Monthly Exam October 15, 2024 5:11 pm MONTHLY EXAM November 18, 2024 2:51pm LONG-TERM LAB WORK November 19, 2024 5:00 am LABWORK November 26, 2024 5:00a m LONG-TERM LAB WORK December 17, 2024 5:0 0am MONTHLY EXAM December 24, 2024 3:15 pm LONG-TERM LAB WORK January 07, 2025 5: 00am LONG-TERM LAB WORK January 14, 2025 5:0 0am Chief Complaint Admit Date MONTHLY EXAM November 18, 2024 2:51pm LONG-TERM LAB WORK November 19, 2024 5:00 am LABWORK November 26, 2024 5:00a m LONG-TERM LAB WORK December 17, 2024 5:0 0am MONTHLY EXAM December 24, 2024 3:15 pm LONG-TERM LAB WORK January 07, 2025 5: 00am LONG-TERM LAB WORK January 14, 2025 5:0 0am Monthly Exam February 06, 2025 11:2 1am Chief Complaint Admit Date MONTHLY EXAM November 18, 2024 2:51pm LONG-TERM LAB WORK November 19, 2024 5:00 am LABWORK November 26, 2024 5:00a m LONG-TERM LAB WORK December 17, 2024 5:0 0am MONTHLY EXAM December 24, 2024 3:15 pm LONG-TERM LAB WORK January 07, 2025 5: 00am LONG-TERM LAB WORK January 14, 2025 5:0 0am Monthly Exam February 06, 2025 11:2 1am LONG-TERM LAB WORK February 18, 2025 5 :00am MONTHLY EXAM February 18, 2025 4:2 3pm Chief Complaint Admit Date MONTHLY EXAM December 24, 2024 3:15 pm LONG-TERM LAB WORK January 07, 2025 5: 00am LONG-TERM LAB WORK January 14, 2025 5:0 0am Monthly Exam February 06, 2025 11:2 1am LONG-TERM LAB WORK February 18, 2025 5 :00am MONTHLY EXAM February 18, 2025 4:2 3pm LONG-TERM LAB WORK March 18 5:00am LONG-TERM LAB WORK April 01 5:00am Chief Complaint Admit Date LONG-TERM LAB WORK January 14, 2025 5:0 0am Monthly Exam February 06, 2025 11:2 1am LONG-TERM LAB WORK February 18, 2025 5 :00am MONTHLY EXAM February 18, 2025 4:2 3pm LONG-TERM LAB WORK March 18 5:00am MONTHLY EXAM March 28, 2025 3:11pm LONG-TERM LAB WORK April 01 5:00am LONG-TERM LAB WORK April 22, 2025 6:40am Family [...] TOMOGRAPHY THORAX W/O CNTRST Usman Patel MD [address] [facility] [place] [address] [place] [address] Referral ID Status Reason Start Date Expiration Date V isits Requested Visits Authorized [id number] Closed Auto-Generate d Referral 11/24/2022 12/24/2022 1 1 Summary Purpose Additional Source Comments Source Comments (unrecognize d section and content) In the event this informatio n is protected by the Federal Confidentiality of Alcohol and Drug Abuse Patient Records regulations: The Federal rules restrict any use of the information to criminally investigate or prosecute any alcohol or drug abuse patient.[facility] the event this information is protected by the Federal Confidentiality of Alcohol and Drug Abuse Patient Records regulations: The Federal rules restrict any use of the information to criminally investigate or prosecute any alcohol or drug abuse patient.[facility] ClinicIn the event this information is protected by the Federal Confidentiality of Alcohol and Drug Abuse Patient Records regulations: The Federal rules restrict any use of the information to criminally investigate or prosecute any alcohol or drug abuse patient.[facility] ClinicIn the event this information is protected by the Federal Confidentiality of Alcohol and Drug Abuse Patient Records regulations: The Federal rules restrict any use of the information to criminally investigate or prosecute any alcohol or drug abuse patient.[facility] ClinicIn the event this information is protected by the Federal Confidentiality of Alcohol and Drug Abuse Patient Records regulations: The Federal rules restrict any use of the information to criminally investigate or prosecute any alcohol or drug abuse patient.[facility] ClinicIn the event this information is protected by the Federal Confidentiality of Alcohol and Drug Abuse Patient Records regulations: The Federal rules restrict any use of the information to criminally investigate or prosecute any alcohol or drug abuse patient.[facility] ClinicIn the event this information is protected by the Federal Confidentiality of Alcohol and Drug Abuse Patient Records regulations: The Federal rules restrict any use of the information to criminally investigate or prosecute any alcohol or drug abuse patient.[facility] ClinicIn the event this information is protected by the Federal Confidentiality of Alcohol and Drug Abuse Patient Records regulations: The Federal rules restrict any use of the information to criminally investigate or prosecute any alcohol or drug abuse patient.[facility] ClinicIn the event this information is protected by the Federal Confidentiality of Alcohol and Drug Abuse Patient Records regulations: The Federal rules restrict any use of the information to criminally investigate or prosecute any alcohol or drug abuse patient.[facility] ClinicIn the event this information is protected by the Federal Confidentiality of Alcohol and Drug Abuse Patient Records regulations: The Federal rules restrict any use of the information to criminally investigate or prosecute any alcohol or drug abuse patient.[facility] ClinicIn the event this information is protected by the Federal Confidentiality of Alcohol and Drug Abuse Patient Records regulations: The Federal rules restrict any use of the information to criminally investigate or prosecute any alcohol or drug abuse patient.[facility] ClinicIn the event this information is protected by the Federal Confidentiality of Alcohol and Drug Abuse Patient Records regulations: The Federal rules restrict any use of the information to criminally investigate or prosecute any alcohol or drug abuse patient.[facility] ClinicIn the event this information is protected by the Federal Confidentiality of Alcohol and Drug Abuse Patient Records regulations: The Federal rules restrict any use of the information to criminally investigate or prosecute any alcohol or drug abuse patient.[facility] ClinicIn the event this information is protected by the Federal Confidentiality of Alcohol and Drug Abuse Patient Records regulations: The Federal rules restrict any use of the information to criminally investigate or prosecute any alcohol or drug abuse patient.[facility] ClinicIn the event this information is protected by the Federal Confidentiality of Alcohol and Drug Abuse Patient Records regulations: The Federal rules restrict any use of the information to criminally investigate or prosecute any alcohol or drug abuse patient.[facility] ClinicIn the event this information is protected by the Federal Confidentiality of Alcohol and Drug Abuse Patient Records regulations: The Federal rules restrict any use of the information to criminally investigate or prosecute any alcohol or drug abuse patient.[facility] ClinicIn the event this information is protected by the Federal Confidentiality of Alcohol and Drug Abuse Patient Records regulations: The Federal rules restrict any use of the information to criminally investigate or prosecute any alcohol or drug abuse patient.[facility] ClinicIn the event this information is protected by the Federal Confidentiality of Alcohol and Drug Abuse Patient Records regulations: The Federal rules restrict any use of the information to criminally investigate or prosecute any alcohol or drug abuse patient.[facility] ClinicIn the event this information is protected by the Federal Confidentiality of Alcohol and Drug Abuse Patient Records regulations: The Federal rules restrict any use of the information to criminally investigate or prosecute any alcohol or drug abuse patient.[facility] ClinicIn the event this information is protected by the Federal Confidentiality of Alcohol and Drug Abuse Patient Records regulations: The Federal rules restrict any use of the information to criminally investigate or prosecute any alcohol or drug abuse patient.[facility] ClinicIn the event this information is protected by the Federal Confidentiality of Alcohol and Drug Abuse Patient Records regulations: The Federal rules restrict any use of the information to criminally investigate or prosecute any alcohol or drug abuse patient.[facility] ClinicIn the event this information is protected by the Federal Confidentiality of Alcohol and Drug Abuse Patient Records regulations: The Federal rules restrict any use of the information to criminally investigate or prosecute any alcohol or drug abuse patient.[facility] ClinicIn the event this information is protected by the Federal Confidentiality of Alcohol and Drug Abuse Patient Records regulations: The Federal rules restrict any use of the information to criminally investigate or prosecute any alcohol or drug abuse patient.[facility] ClinicIn the event this information is protected by the Federal Confidentiality of Alcohol and Drug Abuse Patient Records regulations: The Federal rules restrict any use of the information to criminally investigate or prosecute any alcohol or drug abuse patient.[facility] ClinicIn the event this information is protected by the Federal Confidentiality of Alcohol and Drug Abuse Patient Records regulations: The Federal rules restrict any use of the information to criminally investigate or prosecute any alcohol or drug abuse patient.[facility] ClinicIn the event this information is protected by the Federal Confidentiality of Alcohol and Drug Abuse Patient Records regulations: The Federal rules restrict any use of the information to criminally investigate or prosecute any alcohol or drug abuse patient.[facility] ClinicIn the event this information is protected by the Federal Confidentiality of Alcohol and Drug Abuse Patient Records regulations: The Federal rules restrict any use of the information to criminally investigate or prosecute any alcohol or drug abuse patient.[facility] ClinicIn the event this information is protected by the Federal Confidentiality of Alcohol and Drug Abuse Patient Records regulations: The Federal rules restrict any use of the information to criminally investigate or prosecute any alcohol or drug abuse patient.[facility] ClinicIn the event this information is protected by the Federal Confidentiality of Alcohol and Drug Abuse Patient Records regulations: The Federal rules restrict any use of the information to criminally investigate or prosecute any alcohol or drug abuse patient.[facility] ClinicIn the event this information is protected by the Federal Confidentiality of Alcohol and Drug Abuse Patient Records regulations: The Federal rules restrict any use of the information to criminally investigate or prosecute any alcohol or drug abuse patient.[facility] ClinicIn the event this information is protected by the Federal Confidentiality of Alcohol and Drug Abuse Patient Records regulations: The Federal rules restrict any use of the information to criminally investigate or prosecute any alcohol or drug abuse patient.[facility] Reason for Visit (unrecogniz ed section and content) Reason Comments Results Reason Comments Radiology CT Specialty Diagnoses / Procedures Referred By Dov morin Referred To Contact CT IMAGING Diagnoses Lung nodules Procedures CT CHEST WO IVCON DIAGNOSTIC COMPUTED TOMOGRAPHY THORAX W/O KALIT Usman Patel MD [address] [place] [address] Ct Imaging Referral ID Status Reason Start Date Expiration Date Visits Re quested Visits Authorized [id number] Closed 11/23/2021 12/23/2021 1 1 Reason Onset Date Comments [facility] Monitoring 12/08/2021 Enrollme nt Outreach Reason Onset Date Comments 6 Month Exam Immunizations 05/17/2022 Flu vaccination Reason Comments Forms [facility] Reason Comments Acute Visit upper repiratory Reason Comments Results COVID/flu. Reason Comments Appointment Reason Comments Acute Visit headcold/fatique Reason Comments Spirometry Specialty Diagnoses / Procedures Referred By Dov morin Referred To Contact [facility] Diagnoses SOB (shortness of breath) COPD with chronic bronchitis (HCC) Procedures SPIROMETRY - BASELINE AND POST DILATOR BRNCDILAT RSPSE SPMTRY PRE&POST-BRNCDILAT ADMN Shayna Frias, COLIN.NURSING HOME SOCIAL WORKER [address] [place] [address] Res[facility] [place] [address] [place] [address] Referral ID Status Reason Start Date Expiration Date V isits Requested Visits Authorized [id number] Closed Auto-Generate d Referral 09/08/2022 10/08/2023 1 1 Specialty Diagnoses / Procedures Referred By Contac t Referred To Contact [facility] Diagnoses SOB (shortness of breath) COPD with chronic bronchitis (HCC) Procedures NITRIC OXIDE, EXHALED NITRIC OXIDE GAS DETERMINATION Shayna Frias APRN.NURSING HOME SOCIAL WORKER [address] [place] [address] [facility] [place] [address] [place] [id number] Referral ID Status Reason Start Date Expiration Date V isits Requested Visits Authorized [id number] Closed Auto-Generate d Referral 09/08/2022 10/08/2023 1 1 Specialty Diagnoses / Procedures Referred By Contac t Referred To Contact [facility] Diagnoses SOB (shortness of breath) COPD with chronic bronchitis (HCC) Procedures LUNG VOLUMES Shayna Frias APRN.NURSING HOME SOCIAL WORKER [address] [place] [address] [address] Referral ID Status Reason Start Date Expiration Date V isits Requested Visits Authorized [id number] Closed Auto-Generate d Referral 09/08/2022 07/16/2023 1 [...] TOMOGRAPHY THORAX W/O CNTRST Usman Patel MD [facility] [place] [id number] Imaging [facility]95 Referral ID Status Reason Start Date Expiration Date V isits Requested Visits Authorized [id number] Closed Auto-Generate d Referral 11/24/2022 12/24/2022 1 1 Reason Comments Radiology US Specialty Diagnoses / Procedures Referred By Contac t Referred To Contact US IMAGING Diagnoses Screening for AAA (abdominal aortic aneurysm) Procedures US SCREENING FOR AAA (2017) US ABDOMINAL AORTA REAL TIME SCREEN STUDY AAA Usman Patel MD [address] [place] [address] [place] [address] Referral ID Status Reason Start Date Expiration Date V isits Requested Visits Authorized [id number] Closed Auto-Generate d Referral 11/14/2022 12/14/2023 1 1 Reason Onset Date Comments Refill Request 06/01/2023 Reason Comments Patient Update Reason Onset Date Comments Transition Of Care 06/27/2023 Reason Comments Consult Specialty Diagnoses / Procedures Referred By Contac t Referred To Contact Cardiology Diagnoses Syncope and collapse Procedures CONSULT TO CARDIOLOGY OFFICE/OUTPATIENT NEW HIGH MDM 60 MINUTES Temitope Lara PA-C [address] [place] [address] Referral ID Status Reason Start Date Expiration Date V isits Requested Visits Authorized [id number] Closed PCP Requested Referral 07/19/2023 07/18/2024 1 1 Reason Comments Forms Orders from [place] - 90 day Reason Comments F/U 3 Month Reason Comments Forms [facility] 90 d ay order Reason Onset Date Comments Refill Request 03/04/2024 Reason Comments Med Change Request Reason Comments Forms [place] Reason Comments Forms 90 day order for [facility] Care Teams (unrecognized sec tion and content) Tectonophysicist Relationship Specialty Start Date End Date Usman Patel MD [address] [place], [place] [address] PCP - General Family Practice 05/10/21 Tectonophysicist Relationship Specialty Start Date End Date Usman Patel MD [address] [place] [address] PCP - General Family Practice 05/10/21 Tectonophysicist Relationship Specialty Start Date End Date Usman Patel MD [address] [place] [address] PCP - General Family Practice 05/10/21 Tectonophysicist Relationship Specialty Start Date End Date Usman Patel MD [address] [place] [address] PCP - General Family Medicine 05/10/21 Tectonophysicist Relationship Specialty Start Date End Date Usman Patel MD [address] [place] [address] PCP - General Family Medicine 05/10/21 Tectonophysicist Relationship Specialty Start Date End Date Usman Patel MD [address] [place] [address] PCP - General Family Medicine 05/10/21 Tectonophysicist Relationship Specialty Start Date End Date Usman Patel MD [address] [place] [address] PCP - General Family Medicine 05/10/21 Tectonophysicist Relationship Specialty Start Date End Date Usman Patel MD [address] [place] [address] PCP - General Family Medicine 05/10/21 Tectonophysicist Relationship Specialty Start Date End Date Usman Patel MD [address] [place] [address] PCP - General Family Medicine 05/10/21 Tectonophysicist Relationship Specialty Start Date End Date Usman Patel MD [address] [place] [address] PCP - General Family Medicine 05/10/21 Tectonophysicist Relationship Specialty Start Date End Date Usman Patel MD [address] [place] [address] PCP - General Family Medicine 05/10/21 Tectonophysicist Relationship Specialty Start Date End Date Usman Patel MD [address] [place] [address] PCP - General Family Medicine 05/10/21 Team Status: Active Member Role Status Dates Dr. Nakul Lopez III, MD Family Provider Active Dr. Usman Patel MD Primary Care Provider Active Team Status: Inactive Member Role Status Dates Dr. Prince Zimmer DO Emergency Provider Active Dr. Usman Patel MD Primary Care Provider Active Tectonophysicist Relationship Specialty Start Date End Date Usman Patel MD [address] [facility], [place] [address] PCP - General Family Medicine 05/10/21 Tectonophysicist Relationship Specialty Start Date End Date Usman Patel MD [address] [facility], [place] [address] PCP - General Family Medicine 05/10/21 Tectonophysicist Relationship Specialty Start Date End Date Usman Patel MD [address] [facility], [place] [address] PCP - General Family Medicine 05/10/21 Tectonophysicist Relationship Specialty Start Date End Date Usman Patel MD [address] [facility], [place] [address] PCP - General Family Medicine 05/10/21 Team [...] Dr. Kike Malave MD Attending Provider Active Tectonophysicist Relationship Specialty Start Date End Date Usman Patel MD [address] [facility], [place] [id number] PCP - General Family Medicine 05/10/21 Tectonophysicist Relationship Specialty Start Date End Date Usman Patel MD [address] [place] [address] PCP - General Family Medicine 05/10/21 Tectonophysicist Relationship Specialty Start Date End Date Usman Patel MD [address] [place] [address] PCP - General Family Medicine 05/10/21 Tectonophysicist Relationship Specialty Start Date End Date Usman Patel MD [address] [place] [address] PCP - General Family Medicine 05/10/21 Tectonophysicist Relationship Specialty Start Date End Date Usman Patel MD [address] [place] [address] PCP - General Family Medicine 05/10/21 Tectonophysicist Relationship Specialty Start Date End Date Usman Patel MD [address] [place] [address] PCP - General Family Medicine 05/10/21 Tectonophysicist Relationship Specialty Start Date End Date Usman Patel MD [address] [place] [address] PCP - General Family Medicine 05/10/21 Tectonophysicist Relationship Specialty Start Date End Date Usman Patel MD [address] [place] [address] PCP - General Family Medicine 05/10/21 Shayna Frias APRN.CNP [address] [place] [address] Chisel Worker Family Medicine 06/23/24 Team Status: Active Member [...] Active Start: November 19, 2024 Jolly MÉNDEZ DOG BOARDER-C Attending Provider Active Start: November 19, 2024 [...] 2024 End: November 19, 2024 Jolly MÉNDEZ DOG BOARDER-C Attending Provider Active Start: November 19, 2024 End: November 19, 2024 Team Status: Active Member Role Status Dates Dr. Usman aPtel MD Primary Care Provider Active Start: December 17, 2024 Jolly MÉNDEZ DOG BOARDER-C Attending Provider Active Start: December 17, 2024 [...] 2024 End: October 15, 2024 Jolly MÉNDEZ DOG BOARDER-C Attending Provider Active Start: October 15, 2024 [...] 2024 End: November 19, 2024 Jolly MÉNDEZ DOG BOARDER-C Attending Provider Active Start: November 19, 2024 [...] Active Start: December 17, 2024 Jolly MÉNDEZ DOG BOARDER-C Attending Provider Active Start: December 17, 2024 [...] Active Start: January 14, 2025 Jolly MÉNDEZ DOG BOARDER-C Attending Provider Active Start: January 14, 2025 Team Status: Inactive Member Role/Relationship Status Dates Dr. Usman Patel MD Primary Care Provider Active Start: October 15, 2024 End: October 15, 2024 Jolly MÉNDEZ, DOG BOARDER-C Attending Provider Active Start: October 15, 2024 [...] End: November 18, 2024 Jolly Macdonald NP DOG BOARDER-C Attending Provider Active Start: November 18, 2024 End: November 18, 2024 Team Status: Inactive Member Role/Relationship Status Dates Dr. Usman Patel MD Primary Care Provider Active Start: November 18, 2024 End: November 18, 2024 Jolly Macdonald NP DOG BOARDER-C Attending Provider Active Start: November 18, 2024 [...] Active Start: January 14, 2025 Jolly MÉNDEZ DOG BOARDER-C Attending Provider Active Start: January 14, 2025 [...] Active Start: March 18, 2025 Jolly MÉNDEZ DOG BOARDER-C Attending physician Active Start: March 18, 2025 Team Status: Active Member Role/Relationship Status Dates Dr. Usman Patel MD Primary care physician Active Start: April 01, 2025 Jolly MÉNDEZ DOG BOARDER-C Attending physician Active Start: April 01, 2025 Team Status: Inactive Member Role/Relationship Status Dates Dr. Usman Patel MD Primary care physician Active Start: January 14, 2025 End: January 14, 2025 Jolly MÉNDEZ DOG BOARDER-C Attending physician Active Start: January 14, 2025 [...] Active Start: March 18, 2025 Jolly MÉNDEZ DOG BOARDER-C Attending physician Active Start: March 18, 2025 Team Status: Inactive Member Role/Relationship Status Dates Dr. Usman Patel MD Primary care physician Active Start: March 28, 2025 End: March 28, 2025 Jolly Macdonald NP DOG BOARDER-C Attending physician Active Start: March 28, 2025 [...] section and content) DATE CREATED AUTHOR 10/06/2023 [facility] DATE CREATED AUTHOR AUTHOR'S ORGANIZ ATION 07/05/2024 [facility] DATE CREATED AUTHOR AUTHOR'S ORGANIZ ATION 05/21/2025 [facility] [place] FOR RECORDS PERTAINING TO PATIENTS WHO ARE [...] BE BASED ON THE PRIMARY CLINICAL RECORDS. [employer] [email or web address]. provides no warranty or guarantee of the accuracy or completeness of information in this document.
== END ==
LOC: OLS.WHLEAS 05:00
PROVIDERS: PCP Family Medicine; Visit Provider Nurse Practitioner Adult Health
DX: E03.9 Hypothyroidism, unspecified (principal); M62.561 Muscle wasting and atrophy, not elsewhere classified, right lower leg; M62.562 Muscle wasting and atrophy, not elsewhere classified, left lower leg
CPT/HCPCS: 36415; 84443

== ENCOUNTER → 2025-06-25 06:15 | Outpatient (REF) | payer MEDICARE, MEDICAID, SELFPAY | LOC: OLS.WHLEAS 06:15 | PROVIDERS: PCP Family Medicine; Visit Provider Internal Medicine | DX: G80.9 Cerebral palsy, unspecified (principal); F54 Psychological and behavioral factors associated with disorders or diseases classified elsewhere; F01.50 Vascular dementia, unspecified severity, without behavioral disturbance, psychotic disturbance, mood disturbance, and anxiety; J44.9 Chronic obstructive pulmonary disease, unspecified; E03.9 Hypothyroidism, unspecified | CPT/HCPCS: 36415; 84443 ==